=== PATIENT | male | born 1970 | race Caucasian/White ===

== ENCOUNTER 2019-10-20 12:42 | Inpatient (IN) ==
[2019-10-20] MEDS ORDERED: 0.9 % SODIUM CHLORIDE 1,000 ML IV ONE ×3 (12:47→15:25)
[2019-10-20 13:36] LABS: ABG Methemoglobin 0.3 % (0.4-1.5); Total Hemoglobin 11.9 gm/dL (13.5-16.5); VBG Base Excess -11.1 (-2.0-2.0); VBG Oxygen Saturation 73.5 % (40.0-70.0); VBG PO2 56 mmHg (25-40); VBG Total CO2 14.9 mmol/L (25.0-29.0)
[2019-10-20 13:40] LABS: Basophils # (Auto) 0 K/mcL (0.0-0.3); Basophils % (Auto) 0.1 % (0.0-2.0); Eosinophils # (Auto) 0 K/mcL (0.0-0.7); Eosinophils % (Auto) 0 % (0.0-7.0); Granulocytes % (Auto) 90.4 % (38.0-78.0); Hematocrit 44.8 % (41.0-55.0); Hemoglobin 14.3 g/dL (13.5-16.5); Lymphocytes % (Auto) 5.8 % (15.5-49.0); Mean Platelet Volume 9.9 fL (7.4-10.4); Monocytes # (Auto) 0.7 K/mcL (0.1-0.9); Monocytes % (Auto) 3.7 % (1.0-12.0); Platelet Count 107 K/mcL (140-440); RBC 4.35 M/mcL (4.50-5.90); Red Cell Distribution Width 15.3 % (11.5-14.5); WBC 17.5 K/mcL (4.5-11.0)
[2019-10-20 14:07] LABS: ALT/SGPT 12 U/l (0-40); AST/SGOT 19 U/l (0-37); Albumin 3.1 gm/dL (3.2-5.2); Albumin/Globulin Ratio 0.5 (1.0-2.3); Alkaline Phosphatase 142 U/L (39-117); Bilirubin,Total 1.6 mg/dL (0.0-1.0); Blood Urea Nitrogen 36 mg/dl (6-20); Calcium 11.1 mg/dl (8.6-10.4); Carbon Dioxide 12 mmol/L (22-30); Globulin 6.1 gm/dL (2.2-3.7); Glomerular Filtration Rate 64
[2019-10-20] MEDS ORDERED: INSULIN REGULAR, HUMAN 1 UNIT/0.01 ML UNIT IV ONE (14:07)
[2019-10-20 14:10] LABS: Chloride 94 mmol/L (96-108); Glucose 662 mg/dL (70-105)
[2019-10-20 15:08] LABS: Appearance,Urine HAZY; Bacteria,Urine 0 /hpf (0); Bilirubin,Urine NEG (NEG); Color,Urine YELLOW; Culture Indicated,Urine YES; Glucose,Urine (UA) >=500 mg/dL (NEG); Ketones,Urine 80 mg/dL (NEG); Leukocyte Esterase,Urine 500 /uL (NEG); Mucus,Urine FEW /hpf (0); Nitrate,Urine NEG (NEG); Protein,Urine NEG (NEG); Specific Gravity,Urine 1.024 (1.000-1.035); Urine Blood 0.2 mg/dL (<0.03); Urine RBC 2 /hpf (0-1); Urine Squamous Epithelial Cell 0 /hpf (0-4); Urine WBC 109 /hpf (0-4); Urobilinogen,Urine NEG (NEG)
[2019-10-20] MEDS ORDERED: cefTRIAXone 1 GM VIAL IV ONE (15:27)
[2019-10-20] MEDS ORDERED: ONDANSETRON 4 MG/2 ML VIAL IV PRN ×2 (17:47→19:23)
[2019-10-20] MEDS ORDERED: POTASSIUM CHLORIDE 40 MEQ in DEXTROSE 5% IN WATER 500 ML IV ONE ×2 (17:58→19:23)
[2019-10-20] MEDS ORDERED: cefTRIAXone 1 GM in DEXTROSE 5% IN WATER 50 ML IV SCH (18:00)
[2019-10-20] MEDS ORDERED: LORazepam 2 MG/ML VIAL IV ONE (18:57)
--- NOTE | 2019-10-20 19:18 | Internal Med History&Physical ---
Medical - H&P: HPI Patient information: Note initiated : 10/20/19 at 7:10 pm Service Date, if different from initiated Date: [] Patient: Tarun Molina a 49 y/o M admitted on for BLOOD SUGAR PROBLEM. Chief Complaint: [does not feel good well for days] History of present illness: Mr. Molina is a 49 year old M with a history of diabetes type 2, and high blood pressure who was presented to the ER because he does not feel well for days. Patient is tired and lethargic and a poor historian. As per patient and , patient has not been feeling well for 1 month, but his symptoms have been worsening over the past week. Over the past week he has been having nausea, dizziness, back pain, and dysuria. He has not used diabetic medications for days. In the ER, he was found to have hyperglycemia, 662. 3 L normal saline, 10 units of regular insulin, 1 g of ceftriaxone were given. When I saw this patient in the ER, he felt better. But he still had these symptoms mentioned above. Blood glucose 485. - Constitutional Constitutional: Present: lethargy - EENT Eyes: Present: as per HPI - Cardiovascular Cardiovascular: Present: as per HPI - Respiratory Respiratory: Present: as per HPI - Gastrointestinal Gastrointestinal: Present: as per HPI, nausea - Musculoskeletal Musculoskeletal: Present: back pain - Integumentary Integumentary: Present: as per HPI - Neurological Neurological: Present: weakness (Lethargic and somnolence) - Psychiatric Psychiatric: Present: as per HPI - Endocrine Endocrine: Present: as per HPI - Hematologic/Lymphatic Hematologic/Lymphatic: Present: as per HPI Medical - H&P: PMH Medical history: Diabetes type 2 and high blood pressure Family history: reviewed and not pertinent (Mother had a diabetes and high blood pressure) Smoking status: Never smoker Alcohol use: rarely Medical - H&P: Meds Home Medications Medication Instructions Recorded Confirmed Type Insulin Glargine,Hum.rec.anlog 50 unit SQ BID 10/20/19 10/20/19 History [Lantus Solostar] Insulin Lispro [Humalog] See Protocol SQ QID 10/20/19 10/20/19 History Losartan/Hydrochlorothiazide 100 mg PO DAILY 10/20/19 10/20/19 History [Losartan-Hctz 100-25 mg Tab] Allergies Allergy/AdvReac Type Severity Reaction Status Date / Time latex Allergy Verified 10/20/19 12:45 Medical - H&P: Exam - Constitutional Vitals: Temp Pulse Resp BP Pulse Ox 97 F 102 H 14 119/75 98 10/20/19 12:46 10/20/19 18:12 10/20/19 18:12 10/20/19 18:12 10/20/19 18:12 General appearance: mild distress - Head Head exam: Present: atraumatic, normocephalic - Eye Eye exam: Present: EOMI, PERRL - ENT ENT exam: Present: normal exam - Respiratory Respiratory exam: Present: normal respiratory exam, CTAB - Cardiovascular Cardiovascular exam: Present: normal rate and rhythm, RRR. Absent: JVD - GI/Abdominal GI/Abdominal exam: Present: normal bowel sounds (Mildly diffuse tenderness, no rebound pain), soft - Extremities Exam Extremities exam: Present: normal inspection. Absent: pedal edema, tenderness - Back Exam Back exam: Present: normal inspection - Neurological Exam Neurological exam: Absent: motor sensory deficit (Lethargic, no focal neurological deficits) Medical - H&P: Reslt - Labs CBC & Chem 7: 10/20/19 12:56 10/20/19 12:55 Labs: Short CBC 10/20/19 Range/Units 12:56 WBC 17.5 H (4.5-11.0) K/mcL Hgb 14.3 (13.5-16.5) g/dL Hct 44.8 (41.0-55.0) % Plt Count 107 L (140-440) K/mcL BMP 10/20/19 12:55 Sodium 143 Potassium 3.5 Chloride 94 L Carbon Dioxide 12 L BUN 36 H Creatinine 1.3 H Glucose 662 H* Calcium 11.1 H Liver Function 10/20/19 Range/Units 12:55 Total Bilirubin 1.6 H (0.0-1.0) mg/dL AST 19 (0-37) U/l ALT 12 (0-40) U/l Alkaline Phosphatase 142 H (39-117) U/L Albumin 3.1 L (3.2-5.2) gm/dL Urine 10/20/19 Range/Units 14:26 Urine Color Yellow Urine Appearance Hazy Urine pH 6.0 (5.0-9.0) Ur Specific [place] 1.024 (1.000-1.035) Urine Protein Neg (NEG) mg/dL Urine Glucose (UA) >=500 A (NEG) mg/dL - ABG Interpretation ABG results: 10/20/19 13:12 ABG Methemoglobin 0.3 L VBG pH 7.30 L VBG pCO2 29.0 L VBG pO2 56 H VBG HCO3 14.0 L VBG Total CO2 14.9 L VBG O2 Saturation 73.5 H VBG Base Excess -11.1 L Medical - H&P: A/P - Narrative A/P Narrative: Assessment: 1. Uncontrolled DM type 2 with hyperglycemia 2. LIZ 3. UTI 4. Thrombocytopenia 5. HTN 6. Leukocytosis Plan: 1. Patient has not used diabetic medications for days. In the ER, blood glucose 662. pH 7.30, bicarbonate of 14, Anion gap 37, effective serum osmole 326. Lactic acid 4.3. Patient could have early DKA. Lactic acidosis could contribute to anion gap 37. Insulin 10 units was given in the ER. Patient home meds including Lantus 50 units twice daily. I would not like to start insulin drip at this moment. Instead I will give the patient Lantus to 25 units twice daily with insulin sliding scale. I will start insulin drip if necessary. BMP every 4 hours, Accu-Chek every 2 hours, Potassium chloride 40 M EQ IV 0.45% saline 2. Creatinine 1.3. Could be due to prerenal causes. Held losartan. IV fluid. Repeat renal function 3. Ceftriaxone was started in the ER for UTI. Continue ceftriaxone 4. Repeat her platelets 5. Held losartan. Monitor blood pressure 6. Leukocytosis could be due to UTI or/and stress. Blood culture and urine culture. Continue ceftriaxone 7. DVT prophylaxis: Heparin 8. CODE STATUS: Full
[2019-10-20 19:19] LABS: proBNP 72.5 pg/ml (0-125)
[2019-10-20 19:22] LABS: Blood Urea Nitrogen 34 mg/dl (6-20); Calcium 9.8 mg/dl (8.6-10.4); Carbon Dioxide 14 mmol/L (22-30); Chloride 103 mmol/L (96-108); Glomerular Filtration Rate 87; Glucose 487 mg/dL (70-105)
[2019-10-20] MEDS ORDERED: DEXTROSE 50% 50 ML VIAL IV PRN (19:37)
--- NOTE | 2019-10-20 19:38 | Emergency Department Note ---
General Adult HPI - General Chief complaint: Blood Sugar Problem Stated complaint: BLOOD SUGAR PROBLEM Time Seen by Provider: 10/20/19 12:59 Source: patient Mode of arrival: ambulatory Limitations: no limitations - History of Present Illness HPI Narrative: 49-year-old male presenting to the emergency department the chief complaint of having stopped his insulin about 2 months ago over the past several days has noted gradual progressive increase in fever feeling generally ill unable to really take p.o.'s very well patient with some nausea vomiting no diarrhea perhaps some dysuria patient without exacerbating or ameliorating factors at this point time patient is noncompliant with his diabetes regimen. Patient unaware of his what what his most recent blood sugar is and was noted by EMS to be over 500. Noted here in the emergency department to have significant elevation of his blood sugar on immediate at time of presentation. - Related Data Home Medications Medication Instructions Recorded Confirmed Insulin Glargine,Hum.rec.anlog 50 unit SQ BID 10/20/19 10/20/19 [Lantus Solostar] Insulin Lispro [Humalog] See Protocol SQ QID 10/20/19 10/20/19 Losartan/Hydrochlorothiazide 100 mg PO DAILY 10/20/19 10/20/19 [Losartan-Hctz 100-25 mg Tab] Allergies Allergy/AdvReac Type Severity Reaction Status Date / Time latex Allergy Verified 10/20/19 12:45 Review of Systems All systems ED: reviewed and negative except as stated. Past Medical History - Social History smoking status: Never smoker Physical Exam General: Alert, interactive, appropriate Head: Atraumatic, normocephalic; mucous membranes were dry Eyes: Extraocular movements intact, PERRLA Neck: Trachea midline, full range of motion Chest: Symmetrical chest wall rise, clear to auscultation bilateral without wheezes rales crackles or rubs Cardiovascular: Patient with excellent perfusion to the extremities, patient with tachycardia without M/R/G Abdomen: Nontender nondistended normoactive bowel sounds no masses no hepatosplenomegaly no rebound no guarding Extremities: Full range of motion joints, warm well perfused Neuro: Alert, slightly confused, cranial nerves II through XII grossly intact, normal gait Psychiatric: Normal affect normal mood Limitations: no limitations Course Vital Signs Temperature 97 F 10/20/19 12:42 Pulse Rate 111 H 10/20/19 12:42 Respiratory Rate 16 10/20/19 12:42 Pulse Oximetry (%) 100 10/20/19 12:42 Temperature 97 F 10/20/19 19:31 Pulse Rate 102 H 10/20/19 19:31 Respiratory Rate 14 10/20/19 19:31 Blood Pressure 119/75 10/20/19 19:31 Pulse Oximetry (%) 98 10/20/19 19:31 Medical Decision Making - [facility] Narrative Medical decision making narrative: Differential diagnosis includes alcoholic and fasting ketoacidosis, anion gap acidosis from aspirin, Tylenol, ethylene glycol, methanol, propylene glycol; as well as metabolic encephalopathy. Cause for DKA consider major illness such as sepsis, pancreatitis, VA, CVA or medication changes, malfunction of insulin administration, dietary changes as well as medication noncompliance or medication changes. Patient with findings to suggest his sepsis is has a urinary source with abnormal UA patient also with elevated fraction as the etiology for his DKA findings. Patient with some acidosis as well as ketones in the urine. In my medical opinion at this time patient most reasonably is managed with inpatient admission to the hospital. Patient treated with insulin and IV fluids here in the emergency department with improvement in findings. Patients potassium was assessed prior to and administration of insulin to ensure hypokalemia did not ensue. Patient treated with Rocephin and fluids in the emergency department as well for sepsis. - Lab Data Result diagrams: 10/20/19 12:56 10/20/19 18:15 Lab Results 10/20/19 10/20/19 10/20/19 Range/Units 12:55 12:56 13:11 WBC 17.5 H (4.5-11.0) K/mcL RBC 4.35 L (4.50-5.90) M/mcL Hgb 14.3 (13.5-16.5) g/dL Hct 44.8 (41.0-55.0) % MCV 103.0 H (80.0-100.0) fL MCH 33.0 (26.0-34.0) pg MCHC 32.0 (31.0-36.0) g/dL RDW 15.3 H (11.5-14.5) % Plt Count 107 L (140-440) K/mcL MPV 9.9 (7.4-10.4) fL Gran % 90.4 H (38.0-78.0) % Lymph % (Auto) 5.8 L (15.5-49.0) % [place] % (Auto) 3.7 (1.0-12.0) % Eos % (Auto) 0 (0.0-7.0) % Baso % (Auto) 0.1 (0.0-2.0) % Gran # 15.8 H (1.8-8.0) K/mcL Lymph # (Auto) 1.0 L (1.5-4.8) K/mcL [place] # (Auto) 0.7 (0.1-0.9) K/mcL Eos # (Auto) 0 (0.0-0.7) K/mcL Baso # (Auto) 0 (0.0-0.3) K/mcL Differential Comment ABG Methemoglobin (0.4-1.5) % VBG pH (7.32-7.42) U VBG pCO2 (41.0-51.0) mmHg VBG pO2 (25-40) mmHg VBG HCO3 (24.0-28.0) mmol/L VBG Total CO2 (25.0-29.0) mmol/L VBG O2 Saturation (40.0-70.0) % VBG Base Excess (-2.0-2.0) VBG Lactic Acid 4.3 H* (0.5-2.0) mmol/L Carboxyhemoglobin (0.0-1.5) % THgb Total Hemoglobin (13.5-16.5) gm/dL O2 Delivery Level Sodium 143 (133-145) mmol/L Potassium 3.5 (3.3-5.1) mmol/L Chloride 94 L (96-108) mmol/L Carbon Dioxide 12 L (22-30) mmol/L Anion Gap 37.0 H (8-16) BUN 36 H (6-20) mg/dl Creatinine 1.3 H (0.7-1.2) mg/dl GFR Calculation 64 Glucose 662 H* (70-105) mg/dL Calcium 11.1 H (8.6-10.4) mg/dl Total Bilirubin 1.6 H (0.0-1.0) mg/dL AST 19 (0-37) U/l ALT 12 (0-40) U/l Alkaline Phosphatase 142 H (39-117) U/L Troponin T (0-0.03) ng/ml NT-Pro-B Natriuret Pep (0-125) pg/ml Total Protein 9.2 H (5.9-8.4) gm/dL Albumin 3.1 L (3.2-5.2) gm/dL Globulin 6.1 H (2.2-3.7) gm/dL Albumin/Globulin Ratio 0.5 L (1.0-2.3) Urine Color Urine Appearance Urine pH (5.0-9.0) Ur Specific [place] (1.000-1.035) Urine Protein (NEG) mg/dL Urine Glucose (UA) (NEG) mg/dL Urine Ketones (NEG) mg/dL Urine Occult Blood (<0.03) mg/dL Urine Nitrate (NEG) Urine Bilirubin (NEG) mg/dL Urine Urobilinogen (NEG) mg/dL Ur Leukocyte Esterase (NEG) /uL Urine RBC (0-1) /hpf Urine WBC (0-4) /hpf Ur Squamous Epith Cells (0-4) /hpf Urine Bacteria (0) /hpf Urine Mucus (0) /hpf Ur Culture Indicated? 10/20/19 10/20/19 10/20/19 Range/Units 13:12 14:26 18:15 WBC (4.5-11.0) K/mcL RBC (4.50-5.90) M/mcL Hgb (13.5-16.5) g/dL Hct (41.0-55.0) % MCV (80.0-100.0) fL MCH (26.0-34.0) pg MCHC (31.0-36.0) g/dL RDW (11.5-14.5) % Plt Count (140-440) K/mcL MPV (7.4-10.4) fL Gran % (38.0-78.0) % Lymph % (Auto) (15.5-49.0) % [place] % (Auto) (1.0-12.0) % Eos % (Auto) (0.0-7.0) % Baso % (Auto) (0.0-2.0) % Gran # (1.8-8.0) K/mcL Lymph # (Auto) (1.5-4.8) K/mcL [place] # (Auto) (0.1-0.9) K/mcL Eos # (Auto) (0.0-0.7) K/mcL Baso # (Auto) (0.0-0.3) K/mcL Differential Comment ABG Methemoglobin 0.3 L (0.4-1.5) % VBG pH 7.30 L (7.32-7.42) U VBG pCO2 29.0 L (41.0-51.0) mmHg VBG pO2 56 H (25-40) mmHg VBG HCO3 14.0 L (24.0-28.0) mmol/L VBG Total CO2 14.9 L (25.0-29.0) mmol/L VBG O2 Saturation 73.5 H (40.0-70.0) % VBG Base Excess -11.1 L (-2.0-2.0) VBG Lactic Acid (0.5-2.0) mmol/L Carboxyhemoglobin 2.7 H (0.0-1.5) % THgb Total Hemoglobin 11.9 L (13.5-16.5) gm/dL O2 Delivery Level Not Reportable Sodium (133-145) mmol/L Potassium (3.3-5.1) mmol/L Chloride (96-108) mmol/L Carbon Dioxide (22-30) mmol/L Anion Gap (8-16) BUN (6-20) mg/dl Creatinine (0.7-1.2) mg/dl GFR Calculation Glucose (70-105) mg/dL Calcium (8.6-10.4) mg/dl Total Bilirubin (0.0-1.0) mg/dL AST (0-37) U/l ALT (0-40) U/l Alkaline Phosphatase (39-117) U/L Troponin T < 0.01 (0-0.03) ng/ml NT-Pro-B Natriuret Pep (0-125) pg/ml Total Protein (5.9-8.4) gm/dL Albumin (3.2-5.2) gm/dL Globulin (2.2-3.7) gm/dL Albumin/Globulin Ratio (1.0-2.3) Urine Color Yellow Urine Appearance Hazy Urine pH 6.0 (5.0-9.0) Ur Specific [place] 1.024 (1.000-1.035) Urine Protein Neg (NEG) mg/dL Urine Glucose (UA) >=500 A (NEG) mg/dL Urine Ketones 80 A (NEG) mg/dL Urine Occult Blood 0.2 A (<0.03) mg/dL Urine Nitrate Neg (NEG) Urine Bilirubin Neg (NEG) mg/dL Urine Urobilinogen Neg (NEG) mg/dL Ur Leukocyte Esterase 500 A (NEG) /uL Urine RBC 2 H (0-1) /hpf Urine WBC 109 H (0-4) /hpf Ur Squamous Epith Cells 0 (0-4) /hpf Urine Bacteria 0 (0) /hpf Urine Mucus Few (0) /hpf Ur Culture Indicated? Yes 10/20/19 Range/Units 18:15 WBC (4.5-11.0) K/mcL RBC (4.50-5.90) M/mcL Hgb (13.5-16.5) g/dL Hct (41.0-55.0) % MCV (80.0-100.0) fL MCH (26.0-34.0) pg MCHC (31.0-36.0) g/dL RDW (11.5-14.5) % Plt Count (140-440) K/mcL MPV (7.4-10.4) fL Gran % (38.0-78.0) % Lymph % (Auto) (15.5-49.0) % [place] % (Auto) (1.0-12.0) % Eos % (Auto) (0.0-7.0) % Baso % (Auto) (0.0-2.0) % Gran # (1.8-8.0) K/mcL Lymph # (Auto) (1.5-4.8) K/mcL [place] # (Auto) (0.1-0.9) K/mcL Eos # (Auto) (0.0-0.7) K/mcL Baso # (Auto) (0.0-0.3) K/mcL Differential Comment ABG Methemoglobin (0.4-1.5) % VBG pH (7.32-7.42) U VBG pCO2 (41.0-51.0) mmHg VBG pO2 (25-40) mmHg VBG HCO3 (24.0-28.0) mmol/L VBG Total CO2 (25.0-29.0) mmol/L VBG O2 Saturation (40.0-70.0) % VBG Base Excess (-2.0-2.0) VBG Lactic Acid (0.5-2.0) mmol/L Carboxyhemoglobin (0.0-1.5) % THgb Total Hemoglobin (13.5-16.5) gm/dL O2 Delivery Level Sodium 145 (133-145) mmol/L Potassium 3.9 (3.3-5.1) mmol/L Chloride 103 (96-108) mmol/L Carbon Dioxide 14 L (22-30) mmol/L Anion Gap 28.0 H (8-16) BUN 34 H (6-20) mg/dl Creatinine 1.0 (0.7-1.2) mg/dl GFR Calculation 87 Glucose 487 H* (70-105) mg/dL Calcium 9.8 (8.6-10.4) mg/dl Total Bilirubin (0.0-1.0) mg/dL AST (0-37) U/l ALT (0-40) U/l Alkaline Phosphatase (39-117) U/L Troponin T (0-0.03) ng/ml NT-Pro-B Natriuret Pep 72.5 (0-125) pg/ml Total Protein (5.9-8.4) gm/dL Albumin (3.2-5.2) gm/dL Globulin (2.2-3.7) gm/dL Albumin/Globulin Ratio (1.0-2.3) Urine Color Urine Appearance Urine pH (5.0-9.0) Ur Specific [place] (1.000-1.035) Urine Protein (NEG) mg/dL Urine Glucose (UA) (NEG) mg/dL Urine Ketones (NEG) mg/dL Urine Occult Blood (<0.03) mg/dL Urine Nitrate (NEG) Urine Bilirubin (NEG) mg/dL Urine Urobilinogen (NEG) mg/dL Ur Leukocyte Esterase (NEG) /uL Urine RBC (0-1) /hpf Urine WBC (0-4) /hpf Ur Squamous Epith Cells (0-4) /hpf Urine Bacteria (0) /hpf Urine Mucus (0) /hpf Ur Culture Indicated? Critical Care Time Critical Care Time: Yes Total Critical Care Time: 90 Disposition Pt seen by MACHINE HOSTLER/PA only: No Clinical Impression: Sepsis, DKA (diabetic ketoacidoses) Disposition: Xfer As Inpt ([facility]) Condition: Fair
[2019-10-20] MEDS: INSULIN GLARGINE, HUMAN 1 UNIT/0.01 ML SQ SCH (20:01)
[2019-10-20] MEDS ORDERED: POTASSIUM CHLORIDE 20 MEQ/10 ML VIAL IV ONE (20:03)
[2019-10-20] MEDS ORDERED: LORazepam 2 MG/ML VIAL ONE (20:25)
[2019-10-20] MEDS: LORazepam 2 MG/ML VIAL IV PRN (20:49)
[2019-10-20] MEDS: 0.45 % SODIUM CHLORIDE 1,000 ML IV SCH (20:50)
[2019-10-20] MEDS ORDERED: INSULIN LISPRO 1 UNIT/0.01 ML UNIT SQ SCH (21:00)
[2019-10-20] MEDS ORDERED: HEPARIN 5,000 UNIT/ML VIAL SQ SCH (21:00)
[2019-10-20] MEDS ORDERED: SENNOSIDES 1 TABLET PO SCH (21:00)
[2019-10-20] MEDS ORDERED: DOCUSATE SODIUM 100 MG CAPSULE PO SCH (21:00)
[2019-10-20] MEDS: DOCUSATE SODIUM 100 MG CAPSULE PO SCH (21:49)
[2019-10-20] MEDS: QUEtiapine 25 MG TABLET PO SCH (21:50)
[2019-10-20] MEDS: SENNOSIDES 1 TABLET PO SCH (21:50)
[2019-10-20] MEDS: INSULIN LISPRO 1 UNIT/0.01 ML UNIT SQ SCH (21:56)
[2019-10-20] MEDS: HEPARIN 5,000 UNIT/ML VIAL SQ SCH (21:56)
[2019-10-20] MEDS ORDERED: 0.9 % SODIUM CHLORIDE 10 ML SYRINGE IV SCH (22:00)
[2019-10-20] MEDS: 0.9 % SODIUM CHLORIDE 10 ML SYRINGE IV SCH (22:24)
[2019-10-21 00:20] LABS: Blood Urea Nitrogen 34 mg/dl (6-20); Calcium 9.5 mg/dl (8.6-10.4); Carbon Dioxide 15 mmol/L (22-30); Chloride 104 mmol/L (96-108); Glomerular Filtration Rate 78; Glucose 529 mg/dL (70-105)
[2019-10-21] MEDS: INSULIN LISPRO 1 UNIT/0.01 ML UNIT SQ SCH ×9 (00:53→22:12)
[2019-10-21] MEDS: LORazepam 2 MG/ML VIAL IV PRN ×2 (02:10→20:10)
--- NOTE | 2019-10-21 04:04 | XRay Report ---
CLINICAL INFORMATION: ams COMPARISON: None. FINDINGS: Cardiomediastinal silhouette is accentuated by suboptimal inspiratory result, portable technique and slight lordotic positioning. It is within normal limits. Pulmonary vessels are normal. Lungs are clear. No effusions. IMPRESSION: Negative Interpreted and Authenticated by: Karthikeyan Dia 10/21/19
[2019-10-21] MEDS: 0.45 % SODIUM CHLORIDE 1,000 ML IV SCH ×2 (04:23→13:22)
[2019-10-21 04:46] LABS: Basophils # (Auto) 0 K/mcL (0.0-0.3); Basophils % (Auto) 0.1 % (0.0-2.0); Eosinophils # (Auto) 0 K/mcL (0.0-0.7); Eosinophils % (Auto) 0.1 % (0.0-7.0); Granulocytes % (Auto) 89.3 % (38.0-78.0); Hemoglobin 11.2 g/dL (13.5-16.5); Lymphocytes # (Auto) 0.8 K/mcL (1.5-4.8); Mean Cell Volume 101.5 fL (80.0-100.0); Mean Platelet Volume 8.8 fL (7.4-10.4); Monocytes # (Auto) 0.1 K/mcL (0.1-0.9); Monocytes % (Auto) 1.5 % (1.0-12.0); Platelet Count 69 K/mcL (140-440); RBC 3.35 M/mcL (4.50-5.90); Red Cell Distribution Width 14.5 % (11.5-14.5); WBC 9.3 K/mcL (4.5-11.0)
[2019-10-21 05:14] LABS: Blood Urea Nitrogen 33 mg/dl (6-20); Calcium 9.3 mg/dl (8.6-10.4); Carbon Dioxide 19 mmol/L (22-30); Chloride 110 mmol/L (96-108); Glomerular Filtration Rate 87; Glucose 417 mg/dL (70-105)
[2019-10-21] MEDS: 0.9 % SODIUM CHLORIDE 10 ML SYRINGE IV SCH ×3 (06:03→20:10)
[2019-10-21 06:46] LABS: Blood Urea Nitrogen 31 mg/dl (6-20); Calcium 9.3 mg/dl (8.6-10.4); Carbon Dioxide 22 mmol/L (22-30); Chloride 114 mmol/L (96-108); Glomerular Filtration Rate 87; Glucose 309 mg/dL (70-105)
[2019-10-21] MEDS: INSULIN GLARGINE, HUMAN 1 UNIT/0.01 ML SQ SCH (08:14)
[2019-10-21] MEDS ORDERED: cefTRIAXone 1 GM VIAL IV SCH (09:00)
[2019-10-21] MEDS ORDERED: VANCOMYCIN 1,500 MG in 0.9 % SODIUM CHLORIDE 500 ML IV SCH (09:00)
[2019-10-21] MEDS: HEPARIN 5,000 UNIT/ML VIAL SQ SCH ×2 (09:10→20:43)
--- NOTE | 2019-10-21 09:24 | Internal Med Progress Note ---
Medical - PN: Subj Patient information: Note initiated : 10/21/19 at 9:23 am Service Date, if different from initiated Date: [] Patient: Tarun Molina 49 y/o M admitted on 10/20/19 for BLOOD SUGAR PROBLEM. Chief Complaint: [] When I saw this patient this morning, he was sleeping. He was given Ativan for agitation. Patient has tachycardia and tachypnea White blood cells normalized today, 9.3. Platelet went down to 69 from 107 yesterday Anion gap closed, 14.0 Blood culture showed gram-positive cocci - Constitutional Vitals: Vital Signs Temp Pulse Resp BP Pulse Ox 97.9 F 102 H 28 H 122/58 97 10/21/19 08:01 10/21/19 08:01 10/21/19 08:01 10/21/19 08:01 10/21/19 08:01 Period Temp Pulse Resp BP Sys/Garcia Pulse Ox Last 24 Hr 96.2 F-97.9 F 88-115 11-31 96-137/53-84 95-100 Intake and Output 10/20/19 10/21/19 10/21/19 21:59 05:59 13:59 Intake Total 3000 1464 Output Total 1 1370 Balance 2999 94 Weight 361.377 kg Intake & Output: Intake & Output 10/20/19 10/21/19 10/21/19 21:59 05:59 13:59 Intake Total 3000 1464 Output Total 1 1370 Balance 2999 94 Weight 361.377 kg Intake: IV 3000 1464 Sodium Chloride 0.45% 1,000 ml 944 @ 125 mls/hr IV .Q8H [facility] Rx#: [id number] Sodium Chloride 0.9% 1,000 ml @ 3000 Wide Open IV BOLUS ONE Rx#: [id number] Potassium Chloride 40 Meq In 520 Dextrose 5% in Water 500 ml @ 130 mls/hr IV ONCE ONE Rx#: [id number] Output: Urine Catheter Amount 1370 # of times incontinent of urine 1 Other: Urine Appearance Clear Urine Color Bright Yellow General appearance: average body habitus (Patient is sleeping) - Head Head exam: Present: normal inspection - Eye Eye exam: Absent: conjunctival injection - ENT ENT exam: Present: normal exam - Neck Neck exam: Present: normal inspection - Respiratory Respiratory exam: Present: normal respiratory exam, CTAB - Cardiovascular Cardiovascular exam: Present: normal rate and rhythm, tachycardia - GI/Abdominal GI/Abdominal exam: Present: normal bowel sounds, soft. Absent: tenderness - Extremities Exam Extremities exam: Present: normal inspection. Absent: pedal edema, tenderness, Francis's sign - Neurological Exam Neurological exam: Present: reflexes normal (Does not seem to have focal neurological deficit) - Skin Skin exam: Present: warm Medical - PN: Obj Da - Labs CBC & Chem 7: 10/21/19 03:38 10/21/19 05:42 Labs: Abnormal Lab Results 10/21/19 10/21/19 10/21/19 05:42 03:38 02:42 WBC RBC 3.35 L Hgb 11.2 L Hct 34.0 L MCV 101.5 H RDW Plt Count 69 L Gran % 89.3 H Lymph % (Auto) 9.0 L Gran # 8.3 H Lymph # (Auto) 0.8 L ABG Methemoglobin VBG pH VBG pCO2 VBG pO2 VBG HCO3 VBG Total CO2 VBG O2 Saturation VBG Base Excess VBG Lactic Acid 2.1 H Carboxyhemoglobin Total Hemoglobin Sodium 150 H Chloride 114 H Carbon Dioxide Anion Gap BUN 31 H Creatinine Glucose 309 H Calcium Total Bilirubin Alkaline Phosphatase Total Protein Albumin Globulin Albumin/Globulin Ratio Urine Glucose (UA) Urine Ketones Urine Occult Blood Ur Leukocyte Esterase Urine RBC Urine WBC 10/21/19 10/20/19 10/20/19 02:34 22:02 20:00 WBC RBC Hgb Hct MCV RDW Plt Count Gran % Lymph % (Auto) Gran # Lymph # (Auto) ABG Methemoglobin VBG pH VBG pCO2 VBG pO2 VBG HCO3 VBG Total CO2 VBG O2 Saturation VBG Base Excess VBG Lactic Acid 2.2 H Carboxyhemoglobin Total Hemoglobin Sodium 149 H Chloride 110 H Carbon Dioxide 19 L 15 L Anion Gap 20.0 H 24.0 H BUN 33 H 34 H Creatinine Glucose 417 H 529 H* Calcium Total Bilirubin Alkaline Phosphatase Total Protein Albumin Globulin Albumin/Globulin Ratio Urine Glucose (UA) Urine Ketones Urine Occult Blood Ur Leukocyte Esterase Urine RBC Urine WBC 10/20/19 10/20/19 10/20/19 18:15 14:26 13:12 WBC RBC Hgb Hct MCV RDW Plt Count Gran % Lymph % (Auto) Gran # Lymph # (Auto) ABG Methemoglobin 0.3 L VBG pH 7.30 L VBG pCO2 29.0 L VBG pO2 56 H VBG HCO3 14.0 L VBG Total CO2 14.9 L VBG O2 Saturation 73.5 H VBG Base Excess -11.1 L VBG Lactic Acid Carboxyhemoglobin 2.7 H Total Hemoglobin 11.9 L Sodium Chloride Carbon Dioxide 14 L Anion Gap 28.0 H BUN 34 H Creatinine Glucose 487 H* Calcium Total Bilirubin Alkaline Phosphatase Total Protein Albumin Globulin Albumin/Globulin Ratio Urine Glucose (UA) >=500 A Urine Ketones 80 A Urine Occult Blood 0.2 A Ur Leukocyte Esterase 500 A Urine RBC 2 H Urine WBC 109 H 10/20/19 10/20/19 10/20/19 13:11 12:56 12:55 WBC 17.5 H RBC 4.35 L Hgb Hct MCV 103.0 H RDW 15.3 H Plt Count 107 L Gran % 90.4 H Lymph % (Auto) 5.8 L Gran # 15.8 H Lymph # (Auto) 1.0 L ABG Methemoglobin VBG pH VBG pCO2 VBG pO2 VBG HCO3 VBG Total CO2 VBG O2 Saturation VBG Base Excess VBG Lactic Acid 4.3 H* Carboxyhemoglobin Total Hemoglobin Sodium Chloride 94 L Carbon Dioxide 12 L Anion Gap 37.0 H BUN 36 H Creatinine 1.3 H Glucose 662 H* Calcium 11.1 H Total Bilirubin 1.6 H Alkaline Phosphatase 142 H Total Protein 9.2 H Albumin 3.1 L Globulin 6.1 H Albumin/Globulin Ratio 0.5 L Urine Glucose (UA) Urine Ketones Urine Occult Blood Ur Leukocyte Esterase Urine RBC Urine WBC Meds: Medications Ceftriaxone Sodium (Rocephin) 1 gm IV DAILY [facility] Dextrose (Dextrose 50%) 50 ml IV UD PRN PRN Reason: Hypoglycemia Diagnostic Test (Pha) (Accu-Chek) 1 each FS ACHS [facility] Last Admin: 10/21/19 08:07 Dose: 1 each Documented by: Docusate Sodium (Colace) 100 mg PO BID [facility] Last Admin: 10/20/19 21:49 Dose: Not Given Documented by: Heparin Sodium (Porcine) (Heparin) 5,000 unit SQ Q12 [facility] Last Admin: 10/21/19 09:10 Dose: Not Given Documented by: Sodium Chloride (Sodium Chloride 0.45%) 1,000 mls @ 125 mls/hr IV .Q8H [facility] Last Admin: 10/21/19 04:23 Dose: 125 mls/hr Documented by: Insulin Glargine (Lantus) 25 unit SQ BID [facility] Last Admin: 10/21/19 08:14 Dose: 25 units Documented by: Insulin Human Lispro (Humalog) 0 unit SQ ACHS [facility]; Protocol Last Admin: 10/21/19 08:14 Dose: 8 unit Documented by: Lorazepam (Ativan) 0.5 mg IV Q6HP PRN PRN Reason: ANXIETY/SEDATION Last Admin: 10/21/19 02:10 Dose: 0.5 mg Documented by: Ondansetron HCl (Zofran) 4 mg IV Q6HP PRN PRN Reason: Nausea And Vomiting Quetiapine Fumarate (Seroquel) 25 mg PO BID [facility] Last Admin: 10/20/19 21:50 Dose: Not Given Documented by: Senna (Senokot) 2 tab PO HS [facility] Last Admin: 10/20/19 21:50 Dose: Not Given Documented by: Sodium Chloride (Saline Flush) 10 ml IV Q8 [facility] Last Admin: 10/21/19 06:03 Dose: 10 ml Documented by: - ABG Interpretation ABG results: 10/20/19 13:12 ABG Methemoglobin 0.3 L VBG pH 7.30 L VBG pCO2 29.0 L VBG pO2 56 H VBG HCO3 14.0 L VBG Total CO2 14.9 L VBG O2 Saturation 73.5 H VBG Base Excess -11.1 L Medical - PN: A/P - Time Spent With Patient Total time spent is greater than 50% in coordination of care (as documented) at patient's floor/unit and/or counseling patient: - Narrative A/P Narrative: Assessment: 1. Uncontrolled DM type 2 with hyperglycemia 2. LIZ, resolved 3. UTI 4. Thrombocytopenia 5. HTN 6. Leukocytosis, resolved 7. Staphy aureus bacteremia Plan: 1. Patient has not used diabetic medications for days. In the ER, blood glucose 662. pH 7.30, bicarbonate of 14, Anion gap 37, effective serum osmole 326. Lactic aci d 4.3. Patient could have early DKA. Lactic acidosis could contribute to anion gap 37. Anion gap closed, 14.0 Patient home meds including Lantus 50 units twice daily. Increased Lantus to 30 units twice daily with insulin sliding scale. BMP every 8 hours Potassium chloride 20 M EQ Continue IV 0.45% saline 2. Creatinine went down to 1.0. Continue to hold losartan. IV fluid. Repeat renal function 3. Ceftriaxone was started in the ER for UTI. Continue ceftriaxone 4. Repeat her platelets 5. Held losartan. Monitor blood pressure 6. For bacteremia-staph aureus, repeat blood culture, vancomycin, echocardiogram. 7. DVT prophylaxis: Heparin 8. CODE STATUS: Full Disposition: PT OT Social work consult for medical noncompliance
[2019-10-21] MEDS ORDERED: VANCOMYCIN PER PHARMACY IV SCH (09:47)
[2019-10-21] MEDS ORDERED: INSULIN GLARGINE, HUMAN 1 UNIT/0.01 ML SQ ONE (09:52)
[2019-10-21] MEDS ORDERED: VANCOMYCIN 1,000 MG in 0.9 % SODIUM CHLORIDE 250 ML IV SCH (10:00)
[2019-10-21] MEDS ORDERED: POTASSIUM CHLORIDE 20 MEQ in DEXTROSE 5% IN WATER 250 ML IV ONE (10:05)
[2019-10-21] MEDS: DOCUSATE SODIUM 100 MG CAPSULE PO SCH ×2 (10:54→20:43)
[2019-10-21] MEDS: QUEtiapine 25 MG TABLET PO SCH ×2 (10:54→20:43)
[2019-10-21 13:15] LABS: Blood Urea Nitrogen 29 mg/dl (6-20); Calcium 9.3 mg/dl (8.6-10.4); Carbon Dioxide 25 mmol/L (22-30); Glomerular Filtration Rate 99; Glucose 290 mg/dL (70-105)
[2019-10-21 13:17] LABS: Chloride 114 mmol/L (96-108)
[2019-10-21] MEDS ORDERED: DEXTROSE 5% IN WATER 500 ML IV SCH (15:30)
--- NOTE | 2019-10-21 15:35 | Internal Med Progress Note ---
Medical - PN: Subj Patient information: Note initiated : 10/21/19 at 3:23 pm Service Date, if different from initiated Date: [] Patient: Tarun Molina a 49 y/o M admitted on 10/20/19 for BLOOD SUGAR PROBLEM. Chief Complaint: [] Interval history: Mr. Molina is a 49 year old M with a history of diabetes type 2, and high blood pressure who was presented to the ER because he does not feel well for days. Patient is tired and lethargic and a poor historian. As per patient and , patient has not been feeling well for 1 month, but his symptoms have been worsening over the past week. Over the past week he has been having nausea, dizziness, back pain, and dysuria. He has not used diabetic medications for days. In the ER, he was found to have hyperglycemia, 662. 3 L normal saline, 10 units of regular insulin, 1 g of ceftriaxone were given. When I saw this patient in the ER, he felt better. But he still had these symptoms mentioned above. Blood glucose 485. 10/21 When I saw this patient this morning, he was sleeping. He was given Ativan for agitation. Patient has tachycardia and tachypnea White blood cells normalized today, 9.3. Platelet went down to 69 from 107 yesterday Anion gap closed, 14.0 Blood culture showed gram-positive cocci - Constitutional Vitals: Vital Signs Temp Pulse Resp BP Pulse Ox 98.2 F 99 H 26 H 136/67 97 10/21/19 12:01 10/21/19 12:01 10/21/19 12:01 10/21/19 12:01 10/21/19 12:01 Period Temp Pulse Resp BP Sys/Garcia Pulse Ox Last 24 Hr 96.2 F-98.2 F 88-108 11-31 96-137/53-78 95-100 Intake and Output 10/21/19 10/21/19 10/21/19 05:59 13:59 21:59 Intake Total 1464 1500 Output Total 1370 Balance 94 1500 Weight 88.405 kg Patient Weight 10/22/19 05:59 Weight 88.405 kg Intake & Output: Intake & Output 10/21/19 10/21/19 10/21/19 05:59 13:59 21:59 Intake Total 1464 1500 Output Total 1370 Balance 94 1500 Weight 88.405 kg Intake: IV 1464 1500 Sodium Chloride 0.45% 1,000 ml 944 1000 @ 125 mls/hr IV .Q8H [facility] Rx#: [id number] Potassium Chloride 40 Meq In 520 Dextrose 5% in Water 500 ml @ 130 mls/hr IV ONCE ONE Rx#: [id number] Vancomycin 1,500 mg In Sodium 500 Chloride 0.9% 500 ml @ 333.3 mls/hr IV Q12H [facility] Rx#: [id number] Output: Urine Catheter Amount 1370 Other: Urine Appearance Clear Urine Color Bright Yellow Exam: General: Alert, Awake, No acute Distress Eyes/N/T: EOMI, Head/Neck: neck supple, CV: tachy but regular, No murmurs, Pulm: Clear b/l, no wheezing/rhonchi/rales Abd: soft, nontender, +BS x4 Ext: no clubbing/cyanosis/edema Neuro: Alert, no focal deficits, moves all extremities, Skin: warm/dry Medical - PN: Obj Da - Labs CBC & Chem 7: 10/21/19 03:38 10/21/19 10:30 Labs: Abnormal Lab Results 10/21/19 10/21/19 10/21/19 10:30 05:42 03:38 WBC RBC 3.35 L Hgb 11.2 L Hct 34.0 L MCV 101.5 H RDW Plt Count 69 L Gran % 89.3 H Lymph % (Auto) 9.0 L Gran # 8.3 H Lymph # (Auto) 0.8 L ABG Methemoglobin VBG pH VBG pCO2 VBG pO2 VBG HCO3 VBG Total CO2 VBG O2 Saturation VBG Base Excess VBG Lactic Acid Carboxyhemoglobin Total Hemoglobin Sodium 149 H 150 H Chloride 114 H 114 H Carbon Dioxide Anion Gap BUN 29 H 31 H Creatinine Glucose 290 H 309 H Calcium Total Bilirubin Alkaline Phosphatase Total Protein Albumin Globulin Albumin/Globulin Ratio Urine Glucose (UA) Urine Ketones Urine Occult Blood Ur Leukocyte Esterase Urine RBC Urine WBC 10/21/19 10/21/19 10/20/19 02:42 02:34 22:02 WBC RBC Hgb Hct MCV RDW Plt Count Gran % Lymph % (Auto) Gran # Lymph # (Auto) ABG Methemoglobin VBG pH VBG pCO2 VBG pO2 VBG HCO3 VBG Total CO2 VBG O2 Saturation VBG Base Excess VBG Lactic Acid 2.1 H Carboxyhemoglobin Total Hemoglobin Sodium 149 H Chloride 110 H Carbon Dioxide 19 L 15 L Anion Gap 20.0 H 24.0 H BUN 33 H 34 H Creatinine Glucose 417 H 529 H* Calcium Total Bilirubin Alkaline Phosphatase Total Protein Albumin Globulin Albumin/Globulin Ratio Urine Glucose (UA) Urine Ketones Urine Occult Blood Ur Leukocyte Esterase Urine RBC Urine WBC 10/20/19 10/20/19 10/20/19 20:00 18:15 14:26 WBC RBC Hgb Hct MCV RDW Plt Count Gran % Lymph % (Auto) Gran # Lymph # (Auto) ABG Methemoglobin VBG pH VBG pCO2 VBG pO2 VBG HCO3 VBG Total CO2 VBG O2 Saturation VBG Base Excess VBG Lactic Acid 2.2 H Carboxyhemoglobin Total Hemoglobin Sodium Chloride Carbon Dioxide 14 L Anion Gap 28.0 H BUN 34 H Creatinine Glucose 487 H* Calcium Total Bilirubin Alkaline Phosphatase Total Protein Albumin Globulin Albumin/Globulin Ratio Urine Glucose (UA) >=500 A Urine Ketones 80 A Urine Occult Blood 0.2 A Ur Leukocyte Esterase 500 A Urine RBC 2 H Urine WBC 109 H 10/20/19 10/20/19 10/20/19 13:12 13:11 12:56 WBC 17.5 H RBC 4.35 L Hgb Hct MCV 103.0 H RDW 15.3 H Plt Count 107 L Gran % 90.4 H Lymph % (Auto) 5.8 L Gran # 15.8 H Lymph # (Auto) 1.0 L ABG Methemoglobin 0.3 L VBG pH 7.30 L VBG pCO2 29.0 L VBG pO2 56 H VBG HCO3 14.0 L VBG Total CO2 14.9 L VBG O2 Saturation 73.5 H VBG Base Excess -11.1 L VBG Lactic Acid 4.3 H* Carboxyhemoglobin 2.7 H Total Hemoglobin 11.9 L Sodium Chloride Carbon Dioxide Anion Gap BUN Creatinine Glucose Calcium Total Bilirubin Alkaline Phosphatase Total Protein Albumin Globulin Albumin/Globulin Ratio Urine Glucose (UA) Urine Ketones Urine Occult Blood Ur Leukocyte Esterase Urine RBC Urine WBC 10/20/19 12:55 WBC RBC Hgb Hct MCV RDW Plt Count Gran % Lymph % (Auto) Gran # Lymph # (Auto) ABG Methemoglobin VBG pH VBG pCO2 VBG pO2 VBG HCO3 VBG Total CO2 VBG O2 Saturation VBG Base Excess VBG Lactic Acid Carboxyhemoglobin Total Hemoglobin Sodium Chloride 94 L Carbon Dioxide 12 L Anion Gap 37.0 H BUN 36 H Creatinine 1.3 H Glucose 662 H* Calcium 11.1 H Total Bilirubin 1.6 H Alkaline Phosphatase 142 H Total Protein 9.2 H Albumin 3.1 L Globulin 6.1 H Albumin/Globulin Ratio 0.5 L Urine Glucose (UA) Urine Ketones Urine Occult Blood Ur Leukocyte Esterase Urine RBC Urine WBC Meds: Medications Ceftriaxone Sodium (Rocephin) 1 gm IV DAILY [facility] Last Admin: 10/21/19 10:51 Dose: 1 gm Documented by: Dextrose (Dextrose 50%) 50 ml IV UD PRN PRN Reason: Hypoglycemia Diagnostic Test (Pha) (Accu-Chek) 1 each FS [facility] Last Admin: 10/21/19 11:50 Dose: 1 each Documented by: Docusate Sodium (Colace) 100 mg PO BID [facility] Last Admin: 10/21/19 10:54 Dose: Not Given Documented by: Heparin Sodium (Porcine) (Heparin) 5,000 unit SQ Q12 [facility] Last Admin: 10/21/19 09:10 Dose: Not Given Documented by: Sodium Chloride (Sodium Chloride 0.45%) 1,000 mls @ 125 mls/hr IV .Q8H [facility] Last Admin: 10/21/19 13:22 Dose: 125 mls/hr Documented by: Vancomycin HCl 1,500 mg/ (Sodium Chloride) 500 mls @ 333.3 mls/hr IV Q12H [facility] Last Infusion: 10/21/19 12:30 Dose: Infused Documented by: Insulin Glargine (Lantus) 30 unit SQ BID [facility] Insulin Human Lispro (Humalog) 0 unit SQ [facility]; Protocol Last Admin: 10/21/19 11:53 Dose: 8 unit Documented by: Lorazepam (Ativan) 0.5 mg IV Q6HP PRN PRN Reason: ANXIETY/SEDATION Last Admin: 10/21/19 02:10 Dose: 0.5 mg Documented by: Ondansetron HCl (Zofran) 4 mg IV Q6HP PRN PRN Reason: Nausea And Vomiting Quetiapine Fumarate (Seroquel) 25 mg PO BID [facility] Last Admin: 10/21/19 10:54 Dose: Not Given Documented by: Senna (Senokot) 2 tab PO [facility] Last Admin: 10/20/19 21:50 Dose: Not Given Documented by: Sodium Chloride (Saline Flush) 10 ml IV Q8 [facility] Last Admin: 10/21/19 13:16 Dose: Not Given Documented by: Vancomycin HCl (Vancomycin Per Pharmacy) 1 order IV UD [facility]; Protocol - ABG Interpretation ABG results: 10/20/19 13:12 ABG Methemoglobin 0.3 L VBG pH 7.30 L VBG pCO2 29.0 L VBG pO2 56 H VBG HCO3 14.0 L VBG Total CO2 14.9 L VBG O2 Saturation 73.5 H VBG Base Excess -11.1 L Medical - PN: A/P - Time Spent With Patient Total time spent is greater than 50% in coordination of care (as documented) at patient's floor/unit and/or counseling patient: - Narrative A/P Narrative: Assessment: *Uncontrolled DM type 2 w/DKA: -Patient has not used diabetic medications for days. *lactic acidosis: resolved *LIZ, resolved: *UTI: *Cirrhosis w/thrombocytopenia: has had extensive w/u to determine etiology *HTN *Hypernatremia: *Staphy aureus bacteremia: -echo Plan: -home Lantus started, titrate up to home dose, SSI -hypotonic IVF, f/u sodium -ARB/HCTZ held for LIZ -Ceftriaxone was started in the ER for UTI. Continue ceftriaxone -Repeat her platelets -For bacteremia-staph aureus, repeat blood culture, vancomycin, echocardiogram. -ID consult -ppx: Heparin CODE STATUS: Full
[2019-10-21 16:17] LABS: Phosphorous 2.1 mg/dL (2.7-4.5)
--- NOTE | 2019-10-21 16:58 | Event Note ---
Called by Dr. Kraus. Pt with MSSA bacteremia. Stop current antibiotics. Start IV Cefazolin 2 gm q8 hrs. Repeat blood Cx every other day until negative. Full note to follow tomorrow Jaison Colvin MD Infectious diseases
[2019-10-21] MEDS ORDERED: ceFAZolin 2 GM in DEXTROSE 5% IN WATER 50 ML IV SCH (17:00)
[2019-10-21] MEDS ORDERED: cefTRIAXone 1 GM in DEXTROSE 5% IN WATER 50 ML IV SCH (18:00)
[2019-10-21] MEDS: SENNOSIDES 1 TABLET PO SCH (20:43)
[2019-10-21] MEDS ORDERED: HALOPERIDOL LACTATE 5 MG/ML VIAL IV ONE (20:53)
[2019-10-21] MEDS ORDERED: HALOPERIDOL LACTATE 5 MG/ML VIAL ONE (20:57)
[2019-10-21] MEDS ORDERED: POTASSIUM PHOSPHATE 20 MEQ in DEXTROSE 5% IN WATER 250 ML IV ONE (20:57)
[2019-10-21] MEDS ORDERED: INSULIN GLARGINE, HUMAN 1 UNIT/0.01 ML SQ SCH ×2 (21:00)
[2019-10-21 21:09] LABS: Blood Urea Nitrogen 25 mg/dl (6-20); Calcium 9.1 mg/dl (8.6-10.4); Carbon Dioxide 24 mmol/L (22-30); Chloride 116 mmol/L (96-108); Glomerular Filtration Rate 99; Glucose 328 mg/dL (70-105)
[2019-10-21] MEDS ORDERED: DEXTROSE 5% IN WATER 1,000 ML IV SCH (21:15)
[2019-10-21] MEDS ORDERED: POTASSIUM PHOSPHATE 66 MEQ/15 ML VIAL IV ONE (21:41)
[2019-10-21] MEDS: ceFAZolin 1 GM VIAL IV SCH (22:12)
[2019-10-22] MEDS ORDERED: INSULIN REGULAR, HUMAN 50 UNIT in 0.9 % SODIUM CHLORIDE 99.5 ML IV SCH (00:15)
[2019-10-22] MEDS ORDERED: INSULIN REGULAR, HUMAN 1 UNIT/0.01 ML UNIT ONE ×2 (00:16→00:17)
[2019-10-22] MEDS ORDERED: 0.9 % SODIUM CHLORIDE 100 ML IV ONE (00:31)
[2019-10-22] MEDS: LORazepam 2 MG/ML VIAL IV PRN ×2 (02:24→08:18)
--- NOTE | 2019-10-22 03:25 | Cat Scan Report ---
CLINICAL INFORMATION: Confusion COMPARISON: None. TECHNIQUE: 2.5 mm helical slices were obtained in the skull base to vertex. Following reconstruction, axial reformatted images were reviewed at bone and parenchymal windows. The exam was performed using radiation dose optimization techniques including, but not limited to, automated exposure control, adjustment of the mA and/or kV according to patient size and use of iterative reconstruction technique. FINDINGS: The ventricles, sulci, fissures, and cisterns are normal in size and configuration for age. No extra-axial fluid collections are identified. The cerebrum, brainstem and cerebellum are unremarkable. There is no evidence of hemorrhage, mass effect, or edema. Bone windows show no osseous abnormality. IMPRESSION: Normal head CT without contrast for age. Interpreted and Authenticated by: Karthikeyan Dia 10/22/19
[2019-10-22] MEDS: ceFAZolin 1 GM VIAL IV SCH ×3 (05:34→21:27)
[2019-10-22] MEDS: 0.9 % SODIUM CHLORIDE 10 ML SYRINGE IV SCH ×3 (05:34→21:27)
[2019-10-22 06:10] LABS: Hematocrit 36.8 % (41.0-55.0); Hemoglobin 12.1 g/dL (13.5-16.5); Mean Cell Volume 100.2 fL (80.0-100.0); Mean Platelet Volume 8.4 fL (7.4-10.4); Platelet Count 63 K/mcL (140-440); RBC 3.68 M/mcL (4.50-5.90); Red Cell Distribution Width 14.7 % (11.5-14.5); WBC 6.4 K/mcL (4.5-11.0)
[2019-10-22 06:25] LABS: ALT/SGPT 12 U/l (0-40); AST/SGOT 29 U/l (0-37); Albumin 2.1 gm/dL (3.2-5.2); Albumin/Globulin Ratio 0.4 (1.0-2.3); Alkaline Phosphatase 92 U/L (39-117); Bilirubin,Direct 0.4 mg/dL (0.0-0.3); Blood Urea Nitrogen 20 mg/dl (6-20); Calcium 9.2 mg/dl (8.6-10.4); Carbon Dioxide 23 mmol/L (22-30); Chloride 119 mmol/L (96-108); Globulin 5.3 gm/dL (2.2-3.7); Glomerular Filtration Rate 104; Glucose 210 mg/dL (70-105); Lactate Dehydrogenase 230 U/L (94-250); Phosphorous 1.5 mg/dL (2.7-4.5); Triglycerides 97 mg/dl (<150); Uric Acid 6.7 mg/dL (2.5-8.0)
[2019-10-22 06:27] LABS: Basophils % (Manual) 1 % (0-2); Lymphocytes % 7 % (15-49); Macrocytosis 1+ (NONE SEEN); Monocytes % (Manual) 7 % (1-12); Platelet Estimate DECREASED (NORMAL); RBC Morphology ABNORMAL (NORMAL); Segmented Neutrophils % 85 % (38-78)
[2019-10-22] MEDS: INSULIN REGULAR, HUMAN 50 UNIT in 0.9 % SODIUM CHLORIDE 99.5 ML IV SCH ×2 (07:25→18:14)
[2019-10-22] MEDS: INSULIN LISPRO 1 UNIT/0.01 ML UNIT SQ SCH ×4 (07:32→20:41)
[2019-10-22] MEDS ORDERED: HYDROCHLOROTHIAZIDE 25 MG TABLET PO ONE (08:40)
--- NOTE | 2019-10-22 08:51 | Internal Med Progress Note ---
Medical - PN: Subj Patient information: Note initiated : 10/22/19 at 8:28 am Service Date, if different from initiated Date: [] Patient: Tarun Molina a 49 y/o M admitted on 10/20/19 for BLOOD SUGAR PROBLEM. Chief Complaint: [] Interval history: Mr. Molina is a 49 year old M with a history of diabetes type 2, and high blood pressure who was presented to the ER because he does not feel well for days. Patient is tired and lethargic and a poor historian. As per patient and , patient has not been feeling well for 1 month, but his symptoms have been worsening over the past week. Over the past week he has been having nausea, dizziness, back pain, and dysuria. He has not used diabetic medications for days. In the ER, he was found to have hyperglycemia, 662. 3 L normal saline, 10 units of regular insulin, 1 g of ceftriaxone were given. When I saw this patient in the ER, he felt better. But he still had these symptoms mentioned above. Blood glucose 485. 10/21 When I saw this patient this morning, he was sleeping. He was given Ativan for agitation. Patient has tachycardia and tachypnea White blood cells normalized today, 9.3. Platelet went down to 69 from 107 yesterday Anion gap closed, 14.0 Blood culture showed gram-positive cocci 10/22 Patient slept most the day yesterday after given sedatives. Was agitated last night and given Ativan and a one-time dose of Haldol. This morning attempted to get echocardiogram the patient was agitated and pulling at lines, nurse was able to communicate with him to some degree and patient was following some commands but was not cooperative with exam and thus needed some as needed Ativan to undergo the echo. At this time patient is drowsy. Sodium elevated again today. Increase hypotonic solution. And adjust IV riders to hypotonic solution. Follow-up lactate. unable to gather review of systems given current mental state. - Constitutional Vitals: Vital Signs Temp Pulse Resp BP Pulse Ox 100.8 F H 120 H 31 H 153/82 96 10/22/19 08:06 10/22/19 08:06 10/22/19 08:06 10/22/19 08:00 10/22/19 08:06 Period Temp Pulse Resp BP Sys/Garcia Pulse Ox Last 24 Hr 97.8 F-100.9 F 87-123 19-36 105-153/54-89 92-99 Intake and Output 10/21/19 10/22/19 10/22/19 21:59 05:59 13:59 Intake Total 312.5455 Output Total 1475 960 290 Balance -2725 -804.4545 -290 Weight 88.904 kg Intake & Output: Intake & Output 10/21/19 10/22/19 10/22/19 21:59 05:59 13:59 Intake Total 312.5455 Output Total 1475 960 290 Balance -2056 -777.4545 -131 Weight 88.904 kg Intake: IV 312.5455 HumuLIN R 50 UNIT In Sodium 58 Chloride 0.9% 99.5 ml @ 8 UNIT/ HR 16 mls/hr IV [facility] Rx#: [id number] Potassium Phosphate 20 Meq In 254.5455 Dextrose 5% in Water 250 ml @ 127.273 mls/hr IV ONCE ONE Rx#: [id number] Output: Urine Catheter Amount 1472 960 290 Other: Urine Appearance Clear Clear Cloudy Sediment Uretheral ([place]) Clear Clear Cloudy Urine Color Bright Yellow Bright Yellow Dark Yellow Uretheral ([place]) Bright Yellow Bright Yellow Dark Yellow Urine Odor Normal Exam: General: drowsy after ativan, No acute Distress Eyes/N/T: EOMI, Head/Neck: neck supple, CV: tachy but regular, No murmurs, Pulm: Clear b/l, no wheezing/rhonchi/rales Abd: soft, nondistended and nontender, +BS x4 Ext: no clubbing/cyanosis/edema Neuro: drowsy after sedation, no focal deficits, moves all extremities spontaneously Skin: warm/dry Medical - PN: Obj Da - Labs CBC & Chem 7: 10/22/19 05:16 10/22/19 05:16 Labs: Abnormal Lab Results 10/22/19 10/22/19 10/22/19 05:16 05:16 05:16 WBC RBC 3.68 L Hgb 12.1 L Hct 36.8 L MCV 100.2 H RDW 14.7 H Plt Count 63 L Gran % Lymph % (Auto) Gran # Lymph # (Auto) Seg Neutrophils % 85 H Lymphocytes % 7 L Platelet Estimate Decreased A Macrocytosis 1+ A ABG Methemoglobin VBG pH VBG pCO2 VBG pO2 VBG HCO3 VBG Total CO2 VBG O2 Saturation VBG Base Excess VBG Lactic Acid 2.4 H Carboxyhemoglobin Total Hemoglobin Sodium 153 H Chloride 119 H Carbon Dioxide Anion Gap BUN Creatinine Glucose 210 H Calcium Phosphorus 1.5 L Total Bilirubin Direct Bilirubin 0.4 H Alkaline Phosphatase Total Protein Albumin 2.1 L Globulin 5.3 H Albumin/Globulin Ratio 0.4 L Urine Glucose (UA) Urine Ketones Urine Occult Blood Ur Leukocyte Esterase Urine RBC Urine WBC 10/21/19 10/21/19 10/21/19 18:43 18:43 10:30 WBC RBC Hgb Hct MCV RDW Plt Count Gran % Lymph % (Auto) Gran # Lymph # (Auto) Seg Neutrophils % Lymphocytes % Platelet Estimate Macrocytosis ABG Methemoglobin VBG pH VBG pCO2 VBG pO2 VBG HCO3 VBG Total CO2 VBG O2 Saturation VBG Base Excess VBG Lactic Acid 2.1 H Carboxyhemoglobin Total Hemoglobin Sodium 149 H Chloride 116 H Carbon Dioxide Anion Gap BUN 25 H Creatinine Glucose 328 H Calcium Phosphorus 2.1 L Total Bilirubin Direct Bilirubin Alkaline Phosphatase Total Protein Albumin Globulin Albumin/Globulin Ratio Urine Glucose (UA) Urine Ketones Urine Occult Blood Ur Leukocyte Esterase Urine RBC Urine WBC 10/21/19 10/21/19 10/21/19 10:30 05:42 03:38 WBC RBC 3.35 L Hgb 11.2 L Hct 34.0 L MCV 101.5 H RDW Plt Count 69 L Gran % 89.3 H Lymph % (Auto) 9.0 L Gran # 8.3 H Lymph # (Auto) 0.8 L Seg Neutrophils % Lymphocytes % Platelet Estimate Macrocytosis ABG Methemoglobin VBG pH VBG pCO2 VBG pO2 VBG HCO3 VBG Total CO2 VBG O2 Saturation VBG Base Excess VBG Lactic Acid Carboxyhemoglobin Total Hemoglobin Sodium 149 H 150 H Chloride 114 H 114 H Carbon Dioxide Anion Gap BUN 29 H 31 H Creatinine Glucose 290 H 309 H Calcium Phosphorus Total Bilirubin Direct Bilirubin Alkaline Phosphatase Total Protein Albumin Globulin Albumin/Globulin Ratio Urine Glucose (UA) Urine Ketones Urine Occult Blood Ur Leukocyte Esterase Urine RBC Urine WBC 10/21/19 10/21/19 10/20/19 02:42 02:34 22:02 WBC RBC Hgb Hct MCV RDW Plt Count Gran % Lymph % (Auto) Gran # Lymph # (Auto) Seg Neutrophils % Lymphocytes % Platelet Estimate Macrocytosis ABG Methemoglobin VBG pH VBG pCO2 VBG pO2 VBG HCO3 VBG Total CO2 VBG O2 Saturation VBG Base Excess VBG Lactic Acid 2.1 H Carboxyhemoglobin Total Hemoglobin Sodium 149 H Chloride 110 H Carbon Dioxide 19 L 15 L Anion Gap 20.0 H 24.0 H BUN 33 H 34 H Creatinine Glucose 417 H 529 H* Calcium Phosphorus Total Bilirubin Direct Bilirubin Alkaline Phosphatase Total Protein Albumin Globulin Albumin/Globulin Ratio Urine Glucose (UA) Urine Ketones Urine Occult Blood Ur Leukocyte Esterase Urine RBC Urine WBC 10/20/19 10/20/19 10/20/19 20:00 18:15 14:26 WBC RBC Hgb Hct MCV RDW Plt Count Gran % Lymph % (Auto) Gran # Lymph # (Auto) Seg Neutrophils % Lymphocytes % Platelet Estimate Macrocytosis ABG Methemoglobin VBG pH VBG pCO2 VBG pO2 VBG HCO3 VBG Total CO2 VBG O2 Saturation VBG Base Excess VBG Lactic Acid 2.2 H Carboxyhemoglobin Total Hemoglobin Sodium Chloride Carbon Dioxide 14 L Anion Gap 28.0 H BUN 34 H Creatinine Glucose 487 H* Calcium Phosphorus Total Bilirubin Direct Bilirubin Alkaline Phosphatase Total Protein Albumin Globulin Albumin/Globulin Ratio Urine Glucose (UA) >=500 A Urine Ketones 80 A Urine Occult Blood 0.2 A Ur Leukocyte Esterase 500 A Urine RBC 2 H Urine WBC 109 H 10/20/19 10/20/19 10/20/19 13:12 13:11 12:56 WBC 17.5 H RBC 4.35 L Hgb Hct MCV 103.0 H RDW 15.3 H Plt Count 107 L Gran % 90.4 H Lymph % (Auto) 5.8 L Gran # 15.8 H Lymph # (Auto) 1.0 L Seg Neutrophils % Lymphocytes % Platelet Estimate Macrocytosis ABG Methemoglobin 0.3 L VBG pH 7.30 L VBG pCO2 29.0 L VBG pO2 56 H VBG HCO3 14.0 L VBG Total CO2 14.9 L VBG O2 Saturation 73.5 H VBG Base Excess -11.1 L VBG Lactic Acid 4.3 H* Carboxyhemoglobin 2.7 H Total Hemoglobin 11.9 L Sodium Chloride Carbon Dioxide Anion Gap BUN Creatinine Glucose Calcium Phosphorus Total Bilirubin Direct Bilirubin Alkaline Phosphatase Total Protein Albumin Globulin Albumin/Globulin Ratio Urine Glucose (UA) Urine Ketones Urine Occult Blood Ur Leukocyte Esterase Urine RBC Urine WBC 10/20/19 12:55 WBC RBC Hgb Hct MCV RDW Plt Count Gran % Lymph % (Auto) Gran # Lymph # (Auto) Seg Neutrophils % Lymphocytes % Platelet Estimate Macrocytosis ABG Methemoglobin VBG pH VBG pCO2 VBG pO2 VBG HCO3 VBG Total CO2 VBG O2 Saturation VBG Base Excess VBG Lactic Acid Carboxyhemoglobin Total Hemoglobin Sodium Chloride 94 L Carbon Dioxide 12 L Anion Gap 37.0 H BUN 36 H Creatinine 1.3 H Glucose 662 H* Calcium 11.1 H Phosphorus Total Bilirubin 1.6 H Direct Bilirubin Alkaline Phosphatase 142 H Total Protein 9.2 H Albumin 3.1 L Globulin 6.1 H Albumin/Globulin Ratio 0.5 L Urine Glucose (UA) Urine Ketones Urine Occult Blood Ur Leukocyte Esterase Urine RBC Urine WBC Meds: Medications Cefazolin Sodium (Ancef) 2 gm IV Q8H [facility] Last Admin: 10/22/19 05:34 Dose: 2 gm Documented by: Dextrose (Dextrose 50%) 50 ml IV UD PRN PRN Reason: Hypoglycemia Diagnostic Test (Pha) (Accu-Chek) 1 each FS ACHS [facility] Last Admin: 10/22/19 07:08 Dose: Not Given Documented by: Diagnostic Test (Pha) (Accu-Chek) 1 each FS Q1 [facility] Last Admin: 10/22/19 08:03 Dose: 1 each Documented by: Docusate Sodium (Colace) 100 mg PO BID [facility] Last Admin: 10/21/19 20:43 Dose: Not Given Documented by: Heparin Sodium (Porcine) (Heparin) 5,000 unit SQ Q12 [facility] Last Admin: 10/21/19 20:43 Dose: Not Given Documented by: Dextrose (Dextrose 5% In Water) 1,000 mls @ 75 mls/hr IV .[id number] [facility] Stop: 10/22/19 23:54 Last Admin: 10/22/19 07:42 Dose: 75 mls/hr Documented by: Insulin Human Regular 50 unit/ (Sodium Chloride) 100 mls @ 16 mls/hr IV Q6H [facility]; Protocol Last Admin: 10/22/19 07:25 Dose: 6.5 unit/hr, 13 mls/hr Documented by: Insulin Glargine (Lantus) 35 unit SQ BID [facility] Last Admin: 10/21/19 22:11 Dose: 35 units Documented by: Insulin Human Lispro (Humalog) 0 unit SQ ACHS [facility]; Protocol Last Admin: 10/22/19 07:32 Dose: Not Given Documented by: Lorazepam (Ativan) 0.5 mg IV Q6HP PRN PRN Reason: ANXIETY/SEDATION Last Admin: 10/22/19 08:18 Dose: 0.5 mg Documented by: Ondansetron HCl (Zofran) 4 mg IV Q6HP PRN PRN Reason: Nausea And Vomiting Quetiapine Fumarate (Seroquel) 25 mg PO BID [facility] Last Admin: 10/21/19 20:43 Dose: Not Given Documented by: Senna (Senokot) 2 tab PO HS [facility] Last Admin: 10/21/19 20:43 Dose: Not Given Documented by: Sodium Chloride (Saline Flush) 10 ml IV Q8 [facility] Last Admin: 10/22/19 05:34 Dose: 10 ml Documented by: - ABG Interpretation ABG results: 10/20/19 13:12 ABG Methemoglobin 0.3 L VBG pH 7.30 L VBG pCO2 29.0 L VBG pO2 56 H VBG HCO3 14.0 L VBG Total CO2 14.9 L VBG O2 Saturation 73.5 H VBG Base Excess -11.1 L Medical - PN: A/P - Time Spent With Patient Total time spent is greater than 50% in coordination of care (as documented) at patient's floor/unit and/or counseling patient: - Narrative A/P Narrative: Assessment: *DM type 2 w/DKA: -Patient has not used diabetic medications for days. *Bacteremia (MSSA): -repeat BC + -echo *UTI ([facility]): *Encephalopathy (confusion at night): heavy drinker when he was young, but recently per notes rarely -CT brain no acute findings -?etoh *Sepsis: 2/2 above -leukocytosis resolved *lactic acidosis: *Hypernatremia (corrected sodium on admit was hypernatremic): + iatrogenic with initial fluid resuscitation -has been admitted in past for dehydration *LIZ, resolved: *Cirrhosis w/thrombocytopenia: has had extensive w/u to determine etiology but likely etoh *HTN: *Hypophos: Plan: -insulin gtt -increase d5w, f/u sodium and lactate -d/w with pharm to make soln's hypotonic -Cefazolin, serial BC's, ID consult -echo pending -ARB/HCTZ held for LIZ -replete electrolytes -obtain MRI wednesday if still altered after correcting metabolic state -ppx: Heparin (hold if PLT<50k) CODE STATUS: Full
[2019-10-22] MEDS ORDERED: DEXTROSE 5% IN WATER 500 ML IV SCH (09:00)
[2019-10-22] MEDS ORDERED: INSULIN GLARGINE, HUMAN 1 UNIT/0.01 ML SQ SCH (09:00)
[2019-10-22] MEDS ORDERED: LABETALOL 5 MG/ML ML IV PRN (09:33)
[2019-10-22] MEDS: DOCUSATE SODIUM 100 MG CAPSULE PO SCH ×2 (09:52→20:41)
[2019-10-22] MEDS: HEPARIN 5,000 UNIT/ML VIAL SQ SCH ×2 (09:52→20:42)
[2019-10-22] MEDS: INSULIN GLARGINE, HUMAN 1 UNIT/0.01 ML SQ SCH ×2 (09:52→21:26)
[2019-10-22] MEDS: QUEtiapine 25 MG TABLET PO SCH ×2 (09:53→20:09)
[2019-10-22] MEDS ORDERED: POTASSIUM PHOSPHATE 20 MEQ in DEXTROSE 5% IN WATER 250 ML IV ONE (10:00)
[2019-10-22 11:14] LABS: Alcohol, Blood < 10.0 mg/dL (<10); Alcohol,Blood < 0.010 gm/dl (<0.010)
[2019-10-22 11:17] LABS: Amphetamine Screen,Urine NONE DETECTED (NONDETECTED); Barbiturate Screen,Urine NONE DETECTED (NONDETECTED); Benzodiazepines Screen,Urine NONE DETECTED (NONDETECTED); Cannabinoid Screen,Urine NONE DETECTED (NONDETECTED); Cocaine Screen,Urine NONE DETECTED (NONDETECTED); Opiate Screen,Urine NONE DETECTED (NONDETECTED); Oxycodone, Urine Screen NONE DETECTED (NONDETECTED); Phencyclidine Screen,Urine NONE DETECTED (NONDETECTED)
[2019-10-22 13:58] LABS: Blood Urea Nitrogen 18 mg/dl (6-20); Calcium 8.8 mg/dl (8.6-10.4); Carbon Dioxide 24 mmol/L (22-30); Glomerular Filtration Rate 110; Glucose 129 mg/dL (70-105)
[2019-10-22 14:00] LABS: Chloride 118 mmol/L (96-108)
[2019-10-22] MEDS: DEXTROSE 5% IN WATER 1,000 ML IV SCH ×2 (14:59→20:24)
--- NOTE | 2019-10-22 15:16 | Infectious Disease Consult ---
History of Present Illness Patient information: Note initiated : 10/22/19 at 3:14 pm Service Date, if different from initiated Date: [] Patient: Tarun Molina 49 y/o M admitted on 10/20/19 for BLOOD SUGAR PROBLEM. Chief Complaint: [] Consult date: 10/22/19 Requesting Physician: Merari Holguin Reason for Consult: Staph aureus bacteremia Chief complaint: Pt was confused and brought by family to hospital History of present illness: 49 year old man with PMHx of: - uncontrolled DM2: A1c 13, on insulin Pt was admitted to [facility] on 10/20 after not feeling well for last few days. HPI obtained from chart review and talking to family (mother, priscilla) as pt is obtunded. Patient has not been feeling well for 1 month, but his symptoms have been worsening over the past week. Over the past week he has been having nausea, dizziness, back pain, and dysuria. He has not used diabetic medications for days. In the ER, he was found to have hyperglycemia, 662. 3 L normal saline, 10 units of regular insulin, 1 g of ceftriaxone were given. He was subseq managed as DKA, started on insulin drip, KCL. Ceftriaxone was added for concerns of UTI. Blood Cx were sent which came back +ve same day as GPC in clusters. IV vanc was addded. GPC in clusters on verigen were found to be Staph aureus with neg mec A gene. IV Vanc was stopped per discussion with me yesterday and Ceftriaxone switched to IV Cefazolin 2 gm q8 hrs. At time of visit, ptw as no awake. Per mother and fiancee, he has not been takin g his insulin for about a month, and didnot check his blood sugars as instructed. They denied any skin boils, recent procedures, injections. They live in a RV just adjacent to hospital. He has 2 pet [employer] [facility] dogs. Review of Systems ROS unobtainable: due to mental status Past History Past family history: no sick contacts Past social history: lives in a trailer with mother in [facility] [place] Medications and Allergies Home Medications Medication Instructions Recorded Confirmed Type Insulin Glargine,Hum.rec.anlog 50 unit SQ BID 10/20/19 10/20/19 History [Lantus Solostar] Insulin Lispro [Humalog] See Protocol SQ QID 10/20/19 10/20/19 History Losartan/Hydrochlorothiazide 100 mg PO DAILY 10/20/19 10/20/19 History [Losartan-Hctz 100-25 mg Tab] Acetaminophen W/Codeine #3 1 tab PO Q4-6HP PRN 10/22/19 10/22/19 History [Tylenol #3] Allergies Allergy/AdvReac Type Severity Reaction Status Date / Time latex Allergy Verified 10/20/19 12:45 Physical Examination Vital signs: Temp Pulse Resp BP Pulse Ox 37.5 C H 98 H 28 H 99/59 95 10/22/19 13:58 10/22/19 13:58 10/22/19 13:58 10/22/19 13:00 10/22/19 13:58 General appearance: lethargic Eyes pulmonary: nonicteric Auscultation: bilateral: clear Cardiovascular: other (s1 s2 normal, no m/r/g) Gastrointestinal: normoactive bowel sounds, soft, non-tender Integumentary: other (no rash) Extremities: other (has onychomycosis of both great toe nails, no edema) Gait: other (no tenderness over b/l knee joints. Has some point tenderness over b/l shoulder joints) pupils equal and round, unable to assess due to mental status Results - Laboratory Findings CBC and BMP: 10/22/19 05:16 10/22/19 17:51 Abnormal lab findings: Abnormal Labs 10/20/19 10/20/19 10/20/19 12:55 12:56 13:11 WBC 17.5 H RBC 4.35 L Hgb Hct MCV 103.0 H RDW 15.3 H Plt Count 107 L Gran % 90.4 H Lymph % (Auto) 5.8 L Gran # 15.8 H Lymph # (Auto) 1.0 L Seg Neutrophils % Lymphocytes % Platelet Estimate Macrocytosis ABG Methemoglobin VBG pH VBG pCO2 VBG pO2 VBG HCO3 VBG Total CO2 VBG O2 Saturation VBG Base Excess VBG Lactic Acid 4.3 H* Carboxyhemoglobin Total Hemoglobin Sodium Chloride 94 L Carbon Dioxide 12 L Anion Gap 37.0 H BUN 36 H Creatinine 1.3 H Glucose 662 H* Hemoglobin A1c Calcium 11.1 H Phosphorus Total Bilirubin 1.6 H Direct Bilirubin Alkaline Phosphatase 142 H Total Protein 9.2 H Albumin 3.1 L Globulin 6.1 H Albumin/Globulin Ratio 0.5 L Urine Glucose (UA) Urine Ketones Urine Occult Blood Ur Leukocyte Esterase Urine RBC Urine WBC 10/20/19 10/20/19 10/20/19 13:12 14:26 18:15 WBC RBC Hgb Hct MCV RDW Plt Count Gran % Lymph % (Auto) Gran # Lymph # (Auto) Seg Neutrophils % Lymphocytes % Platelet Estimate Macrocytosis ABG Methemoglobin 0.3 L VBG pH 7.30 L VBG pCO2 29.0 L VBG pO2 56 H VBG HCO3 14.0 L VBG Total CO2 14.9 L VBG O2 Saturation 73.5 H VBG Base Excess -11.1 L VBG Lactic Acid Carboxyhemoglobin 2.7 H Total Hemoglobin 11.9 L Sodium Chloride Carbon Dioxide 14 L Anion Gap 28.0 H BUN 34 H Creatinine Glucose 487 H* Hemoglobin A1c Calcium Phosphorus Total Bilirubin Direct Bilirubin Alkaline Phosphatase Total Protein Albumin Globulin Albumin/Globulin Ratio Urine Glucose (UA) >=500 A Urine Ketones 80 A Urine Occult Blood 0.2 A Ur Leukocyte Esterase 500 A Urine RBC 2 H Urine WBC 109 H 10/20/19 10/20/19 10/21/19 20:00 22:02 02:34 WBC RBC Hgb Hct MCV RDW Plt Count Gran % Lymph % (Auto) Gran # Lymph # (Auto) Seg Neutrophils % Lymphocytes % Platelet Estimate Macrocytosis ABG Methemoglobin VBG pH VBG pCO2 VBG pO2 VBG HCO3 VBG Total CO2 VBG O2 Saturation VBG Base Excess VBG Lactic Acid 2.2 H Carboxyhemoglobin Total Hemoglobin Sodium 149 H Chloride 110 H Carbon Dioxide 15 L 19 L Anion Gap 24.0 H 20.0 H BUN 34 H 33 H Creatinine Glucose 529 H* 417 H Hemoglobin A1c Calcium Phosphorus Total Bilirubin Direct Bilirubin Alkaline Phosphatase Total Protein Albumin Globulin Albumin/Globulin Ratio Urine Glucose (UA) Urine Ketones Urine Occult Blood Ur Leukocyte Esterase Urine RBC Urine WBC 10/21/19 10/21/19 10/21/19 02:42 03:38 05:42 WBC RBC 3.35 L Hgb 11.2 L Hct 34.0 L MCV 101.5 H RDW Plt Count 69 L Gran % 89.3 H Lymph % (Auto) 9.0 L Gran # 8.3 H Lymph # (Auto) 0.8 L Seg Neutrophils % Lymphocytes % Platelet Estimate Macrocytosis ABG Methemoglobin VBG pH VBG pCO2 VBG pO2 VBG HCO3 VBG Total CO2 VBG O2 Saturation VBG Base Excess VBG Lactic Acid 2.1 H Carboxyhemoglobin Total Hemoglobin Sodium 150 H Chloride 114 H Carbon Dioxide Anion Gap BUN 31 H Creatinine Glucose 309 H Hemoglobin A1c Calcium Phosphorus Total Bilirubin Direct Bilirubin Alkaline Phosphatase Total Protein Albumin Globulin Albumin/Globulin Ratio Urine Glucose (UA) Urine Ketones Urine Occult Blood Ur Leukocyte Esterase Urine RBC Urine WBC 10/21/19 10/21/19 10/21/19 10:30 10:30 18:43 WBC RBC Hgb Hct MCV RDW Plt Count Gran % Lymph % (Auto) Gran # Lymph # (Auto) Seg Neutrophils % Lymphocytes % Platelet Estimate Macrocytosis ABG Methemoglobin VBG pH VBG pCO2 VBG pO2 VBG HCO3 VBG Total CO2 VBG O2 Saturation VBG Base Excess VBG Lactic Acid 2.1 H Carboxyhemoglobin Total Hemoglobin Sodium 149 H Chloride 114 H Carbon Dioxide Anion Gap BUN 29 H Creatinine Glucose 290 H Hemoglobin A1c Calcium Phosphorus 2.1 L Total Bilirubin Direct Bilirubin Alkaline Phosphatase Total Protein Albumin Globulin Albumin/Globulin Ratio Urine Glucose (UA) Urine Ketones Urine Occult Blood Ur Leukocyte Esterase Urine RBC Urine WBC 10/21/19 10/22/19 10/22/19 18:43 05:16 05:16 WBC RBC Hgb Hct MCV RDW Plt Count Gran % Lymph % (Auto) Gran # Lymph # (Auto) Seg Neutrophils % Lymphocytes % Platelet Estimate Macrocytosis ABG Methemoglobin VBG pH VBG pCO2 VBG pO2 VBG HCO3 VBG Total CO2 VBG O2 Saturation VBG Base Excess VBG Lactic Acid 2.4 H Carboxyhemoglobin Total Hemoglobin Sodium 149 H 153 H Chloride 116 H 119 H Carbon Dioxide Anion Gap BUN 25 H Creatinine Glucose 328 H 210 H Hemoglobin A1c Calcium Phosphorus 1.5 L Total Bilirubin Direct Bilirubin 0.4 H Alkaline Phosphatase Total Protein Albumin 2.1 L Globulin 5.3 H Albumin/Globulin Ratio 0.4 L Urine Glucose (UA) Urine Ketones Urine Occult Blood Ur Leukocyte Esterase Urine RBC Urine WBC 10/22/19 10/22/19 10/22/19 05:16 05:16 12:58 WBC RBC 3.68 L Hgb 12.1 L Hct 36.8 L MCV 100.2 H RDW 14.7 H Plt Count 63 L Gran % Lymph % (Auto) Gran # Lymph # (Auto) Seg Neutrophils % 85 H Lymphocytes % 7 L Platelet Estimate Decreased A Macrocytosis 1+ A ABG Methemoglobin VBG pH VBG pCO2 VBG pO2 VBG HCO3 VBG Total CO2 VBG O2 Saturation VBG Base Excess VBG Lactic Acid Carboxyhemoglobin Total Hemoglobin Sodium 152 H Chloride 118 H Carbon Dioxide Anion Gap BUN Creatinine Glucose 129 H Hemoglobin A1c 13.0 H Calcium Phosphorus Total Bilirubin Direct Bilirubin Alkaline Phosphatase Total Protein Albumin Globulin Albumin/Globulin Ratio Urine Glucose (UA) Urine Ketones Urine Occult Blood Ur Leukocyte Esterase Urine RBC Urine WBC 10/22/19 12:58 WBC RBC Hgb Hct MCV RDW Plt Count Gran % Lymph % (Auto) Gran # Lymph # (Auto) Seg Neutrophils % Lymphocytes % Platelet Estimate Macrocytosis ABG Methemoglobin VBG pH VBG pCO2 VBG pO2 VBG HCO3 VBG Total CO2 VBG O2 Saturation VBG Base Excess VBG Lactic Acid 2.7 H Carboxyhemoglobin Total Hemoglobin Sodium Chloride Carbon Dioxide Anion Gap BUN Creatinine Glucose Hemoglobin A1c Calcium Phosphorus Total Bilirubin Direct Bilirubin Alkaline Phosphatase Total Protein Albumin Globulin Albumin/Globulin Ratio Urine Glucose (UA) Urine Ketones Urine Occult Blood Ur Leukocyte Esterase Urine RBC Urine WBC Microbiology: Microbiology 10/20/19 14:26 Urine - Clean Void Mid-Stream Urine Culture - Preliminary Staphylococcus aureus 10/20/19 15:48 Blood Blood Culture - Preliminary Staphylococcus aureus 10/21/19 12:38 Blood Blood Culture - Preliminary Gram positive cocci 10/21/19 12:23 Blood Blood Culture - Preliminary Gram positive cocci 10/20/19 15:43 Blood Blood Culture - Preliminary Gram positive cocci 10/20/19 19:29 Nose MRSA (PCR) - Final Assessment and Plan - Narrative A/P Narrative: A: 1. MSSA bacteremia: - unsure of source. Being insulin dependent DM2, it is possible that he might have skin translocation of MSSA during insulin injection or blood sugar testing - pending TTE report - given multiple +ve blood Cx (2/2 sets on 10/20 and 10/21 so far), will need [facility] evaluation 2. DKA: anion gap 10 today <------------37 at admission - Blood Glu 129-210 today <------------- 662 at admission 3. Rt shoulder tenderness: past Hx of rotator cuff tear Recommendations: - Continue IV Cefazolin 2 gm q8 hrs - blood Cx 2 sets, every other day until negative blood Cx for 48 hrs. Once negative, he could get a PICC line placement - will pursue [facility] as Outpatient - If blood Cx from 10/23 are also +ve; will pursue imaging of both shoulders, C/T/L spine will follow Jaison Colvin MD Infectious diseases
[2019-10-22 18:53] LABS: Blood Urea Nitrogen 15 mg/dl (6-20); Calcium 8.9 mg/dl (8.6-10.4); Carbon Dioxide 25 mmol/L (22-30); Glomerular Filtration Rate 110; Glucose 164 mg/dL (70-105)
[2019-10-22 18:54] LABS: Chloride 115 mmol/L (96-108)
[2019-10-22] MEDS ORDERED: POTASSIUM CHLORIDE 20 MEQ TABLET PO ONE (19:13)
[2019-10-22] MEDS ORDERED: DEXTROSE 5% IN WATER 1,000 ML IV SCH (19:17)
[2019-10-22] MEDS ORDERED: hydrOXYzine 25 MG TABLET PO ONE (19:32)
[2019-10-22] MEDS ORDERED: HALOPERIDOL LACTATE 5 MG/ML VIAL IV PRN (19:33)
[2019-10-22] MEDS ORDERED: POTASSIUM CHLORIDE 40 MEQ in DEXTROSE 5% IN WATER 500 ML IV ONE (20:22)
[2019-10-22] MEDS ORDERED: MELATONIN 3 MG TABLET PO PRN (21:00)
[2019-10-22] MEDS: SENNOSIDES 1 TABLET PO SCH (21:08)
[2019-10-22] MEDS ORDERED: POTASSIUM CHLORIDE 20 MEQ/10 ML VIAL IV ONE (21:10)
[2019-10-23] MEDS: INSULIN REGULAR, HUMAN 50 UNIT in 0.9 % SODIUM CHLORIDE 99.5 ML IV SCH ×3 (01:59→08:06)
[2019-10-23] MEDS: ceFAZolin 1 GM VIAL IV SCH ×3 (05:34→21:39)
[2019-10-23] MEDS: 0.9 % SODIUM CHLORIDE 10 ML SYRINGE IV SCH ×3 (05:35→21:39)
[2019-10-23 07:05] LABS: ALT/SGPT 10 U/l (0-40); AST/SGOT 32 U/l (0-37); Albumin/Globulin Ratio 0.4 (1.0-2.3); Alkaline Phosphatase 83 U/L (39-117); Bilirubin,Total 1.1 mg/dL (0.0-1.0); Blood Urea Nitrogen 16 mg/dl (6-20); Calcium 8.2 mg/dl (8.6-10.4); Carbon Dioxide 27 mmol/L (22-30); Globulin 4.5 gm/dL (2.2-3.7); Glomerular Filtration Rate 110; Glucose 201 mg/dL (70-105); Lactate Dehydrogenase 202 U/L (94-250); Triglycerides 69 mg/dl (<150); Uric Acid 5.5 mg/dL (2.5-8.0)
[2019-10-23 07:18] LABS: Bilirubin,Direct 0.5 mg/dL (0.0-0.3); Chloride 117 mmol/L (96-108); Phosphorous 2.7 mg/dL (2.7-4.5)
[2019-10-23] MEDS: INSULIN LISPRO 1 UNIT/0.01 ML UNIT SQ SCH ×6 (07:21→21:39)
--- NOTE | 2019-10-23 07:31 | Internal Med Progress Note ---
Medical - PN: Subj Patient information: Note initiated : 10/23/19 at 7:24 am Service Date, if different from initiated Date: [] Patient: Tarun Molina a 49 y/o M admitted on 10/20/19 for BLOOD SUGAR PROBLEM. Chief Complaint: [] Interval history: Mr. Molina is a 49 year old M with a history of diabetes type 2, and high blood pressure who was presented to the ER because he does not feel well for days. Patient is tired and lethargic and a poor historian. As per patient and , patient has not been feeling well for 1 month, but his symptoms have been worsening over the past week. Over the past week he has been having nausea, dizziness, back pain, and dysuria. He has not used diabetic medications for days. In the ER, he was found to have hyperglycemia, 662. 3 L normal saline, 10 units of regular insulin, 1 g of ceftriaxone were given. When I saw this patient in the ER, he felt better. But he still had these symptoms mentioned above. Blood glucose 485. 10/21 When I saw this patient this morning, he was sleeping. He was given Ativan for agitation. Patient has tachycardia and tachypnea White blood cells normalized today, 9.3. Platelet went down to 69 from 107 yesterday Anion gap closed, 14.0 Blood culture showed gram-positive cocci 10/22 Patient slept most the day yesterday after given sedatives. Was agitated last night and given Ativan and a one-time dose of Haldol. This morning attempted to get echocardiogram the patient was agitated and pulling at lines, nurse was able to communicate with him to some degree and patient was following some commands but was not cooperative with exam and thus needed some as needed Ativan to undergo the echo. At this time patient is drowsy. Sodium elevated again today. Increase hypotonic solution. And adjust IV riders to hypotonic solution. Follow-up lactate. 10/23 pt became agitated last night was given Vistaril and eventually needed haldol 2 .5mg. drowsy this morning, moans to touch but will not open eyes or verbalize. sodium still high despite d5w. pending repeat lactate. will consult nephro for hypernatremia. unable to gather review of systems given current mental state. - Constitutional Vitals: Vital Signs Temp Pulse Resp BP Pulse Ox 96.2 F L 93 H 19 128/69 99 10/23/19 07:04 10/23/19 07:04 10/23/19 07:04 10/23/19 07:00 10/23/19 07:04 Period Temp Pulse Resp BP Sys/Garcia Pulse Ox Last 24 Hr 96.2 F-100.8 F 76-120 16-36 90-153/54-91 92-100 Intake and Output 10/22/19 10/23/19 10/23/19 21:59 05:59 13:59 Intake Total 1169.5455 1520 Output Total 585 575 120 Balance 584.5455 945 -120 Weight 89.902 kg Intake & Output: Intake & Output 10/22/19 10/23/19 10/23/19 21:59 05:59 13:59 Intake Total 1169.5455 1520 Output Total 585 575 120 Balance 584.5455 945 -120 Weight 89.902 kg Intake: IV 1169.5455 1520 Dextrose 5% in Water 1,000 ml @ 889 1000 130 mls/hr IV .[id number] [facility] Rx#: [id number] HumuLIN R 50 UNIT In Sodium 26 Chloride 0.9% 99.5 ml @ 8 UNIT/ HR 16 mls/hr IV Q6H [facility] Rx#: [id number] Potassium Chloride 40 Meq In 520 Dextrose 5% in Water 500 ml @ 130 mls/hr IV ONCE ONE Rx#: [id number] Potassium Phosphate 20 Meq In 254.5455 Dextrose 5% in Water 250 ml @ 127.273 mls/hr IV ONCE ONE Rx#: [id number] Output: Urine Catheter Amount 585 575 120 Other: Urine Appearance Clear Clear Uretheral ([place]) Clear Urine Color Bright Yellow Bright Yellow Uretheral ([place]) Bright Yellow Exam: General: drowsy again this morning after medications last night, No acute Distre ss Eyes/N/T: EOMI, Head/Neck: neck supple, CV: RRR, No murmurs, Pulm: Clear b/l, no wheezing/rhonchi/rales Abd: soft, nondistended and nontender, +BS x4 Ext: no clubbing/cyanosis/edema Neuro: drowsy after sedation, no focal deficits, moves all extremities spontaneously Skin: warm/dry Medical - PN: Obj Da - Labs CBC & Chem 7: 10/22/19 05:16 10/23/19 04:10 Labs: Abnormal Lab Results 10/23/19 10/22/19 10/22/19 04:10 17:51 17:51 WBC RBC Hgb Hct MCV RDW Plt Count Gran % Lymph % (Auto) Gran # Lymph # (Auto) Seg Neutrophils % Lymphocytes % Platelet Estimate Macrocytosis ABG Methemoglobin VBG pH VBG pCO2 VBG pO2 VBG HCO3 VBG Total CO2 VBG O2 Saturation VBG Base Excess VBG Lactic Acid 2.8 H Carboxyhemoglobin Total Hemoglobin Sodium 152 H 150 H Potassium 3.1 L 3.2 L Chloride 117 H 115 H Carbon Dioxide Anion Gap BUN Creatinine Glucose 201 H 164 H Hemoglobin A1c Calcium 8.2 L Phosphorus Total Bilirubin 1.1 H Direct Bilirubin 0.5 H Alkaline Phosphatase Total Protein Albumin 2.0 L Globulin 4.5 H Albumin/Globulin Ratio 0.4 L Urine Glucose (UA) Urine Ketones Urine Occult Blood Ur Leukocyte Esterase Urine RBC Urine WBC 10/22/19 10/22/19 10/22/19 12:58 12:58 05:16 WBC RBC Hgb Hct MCV RDW Plt Count Gran % Lymph % (Auto) Gran # Lymph # (Auto) Seg Neutrophils % Lymphocytes % Platelet Estimate Macrocytosis ABG Methemoglobin VBG pH VBG pCO2 VBG pO2 VBG HCO3 VBG Total CO2 VBG O2 Saturation VBG Base Excess VBG Lactic Acid 2.7 H Carboxyhemoglobin Total Hemoglobin Sodium 152 H Potassium Chloride 118 H Carbon Dioxide Anion Gap BUN Creatinine Glucose 129 H Hemoglobin A1c 13.0 H Calcium Phosphorus Total Bilirubin Direct Bilirubin Alkaline Phosphatase Total Protein Albumin Globulin Albumin/Globulin Ratio Urine Glucose (UA) Urine Ketones Urine Occult Blood Ur Leukocyte Esterase Urine RBC Urine WBC 10/22/19 10/22/19 10/22/19 05:16 05:16 05:16 WBC RBC 3.68 L Hgb 12.1 L Hct 36.8 L MCV 100.2 H RDW 14.7 H Plt Count 63 L Gran % Lymph % (Auto) Gran # Lymph # (Auto) Seg Neutrophils % 85 H Lymphocytes % 7 L Platelet Estimate Decreased A Macrocytosis 1+ A ABG Methemoglobin VBG pH VBG pCO2 VBG pO2 VBG HCO3 VBG Total CO2 VBG O2 Saturation VBG Base Excess VBG Lactic Acid 2.4 H Carboxyhemoglobin Total Hemoglobin Sodium 153 H Potassium Chloride 119 H Carbon Dioxide Anion Gap BUN Creatinine Glucose 210 H Hemoglobin A1c Calcium Phosphorus 1.5 L Total Bilirubin Direct Bilirubin 0.4 H Alkaline Phosphatase Total Protein Albumin 2.1 L Globulin 5.3 H Albumin/Globulin Ratio 0.4 L Urine Glucose (UA) Urine Ketones Urine Occult Blood Ur Leukocyte Esterase Urine RBC Urine WBC 10/21/19 10/21/19 10/21/19 18:43 18:43 10:30 WBC RBC Hgb Hct MCV RDW Plt Count Gran % Lymph % (Auto) Gran # Lymph # (Auto) Seg Neutrophils % Lymphocytes % Platelet Estimate Macrocytosis ABG Methemoglobin VBG pH VBG pCO2 VBG pO2 VBG HCO3 VBG Total CO2 VBG O2 Saturation VBG Base Excess VBG Lactic Acid 2.1 H Carboxyhemoglobin Total Hemoglobin Sodium 149 H Potassium Chloride 116 H Carbon Dioxide Anion Gap BUN 25 H Creatinine Glucose 328 H Hemoglobin A1c Calcium Phosphorus 2.1 L Total Bilirubin Direct Bilirubin Alkaline Phosphatase Total Protein Albumin Globulin Albumin/Globulin Ratio Urine Glucose (UA) Urine Ketones Urine Occult Blood Ur Leukocyte Esterase Urine RBC Urine WBC 10/21/19 10/21/19 10/21/19 10:30 05:42 03:38 WBC RBC 3.35 L Hgb 11.2 L Hct 34.0 L MCV 101.5 H RDW Plt Count 69 L Gran % 89.3 H Lymph % (Auto) 9.0 L Gran # 8.3 H Lymph # (Auto) 0.8 L Seg Neutrophils % Lymphocytes % Platelet Estimate Macrocytosis ABG Methemoglobin VBG pH VBG pCO2 VBG pO2 VBG HCO3 VBG Total CO2 VBG O2 Saturation VBG Base Excess VBG Lactic Acid Carboxyhemoglobin Total Hemoglobin Sodium 149 H 150 H Potassium Chloride 114 H 114 H Carbon Dioxide Anion Gap BUN 29 H 31 H Creatinine Glucose 290 H 309 H Hemoglobin A1c Calcium Phosphorus Total Bilirubin Direct Bilirubin Alkaline Phosphatase Total Protein Albumin Globulin Albumin/Globulin Ratio Urine Glucose (UA) Urine Ketones Urine Occult Blood Ur Leukocyte Esterase Urine RBC Urine WBC 10/21/19 10/21/19 10/20/19 02:42 02:34 22:02 WBC RBC Hgb Hct MCV RDW Plt Count Gran % Lymph % (Auto) Gran # Lymph # (Auto) Seg Neutrophils % Lymphocytes % Platelet Estimate Macrocytosis ABG Methemoglobin VBG pH VBG pCO2 VBG pO2 VBG HCO3 VBG Total CO2 VBG O2 Saturation VBG Base Excess VBG Lactic Acid 2.1 H Carboxyhemoglobin Total Hemoglobin Sodium 149 H Potassium Chloride 110 H Carbon Dioxide 19 L 15 L Anion Gap 20.0 H 24.0 H BUN 33 H 34 H Creatinine Glucose 417 H 529 H* Hemoglobin A1c Calcium Phosphorus Total Bilirubin Direct Bilirubin Alkaline Phosphatase Total Protein Albumin Globulin Albumin/Globulin Ratio Urine Glucose (UA) Urine Ketones Urine Occult Blood Ur Leukocyte Esterase Urine RBC Urine WBC 10/20/19 10/20/19 10/20/19 20:00 18:15 14:26 WBC RBC Hgb Hct MCV RDW Plt Count Gran % Lymph % (Auto) Gran # Lymph # (Auto) Seg Neutrophils % Lymphocytes % Platelet Estimate Macrocytosis ABG Methemoglobin VBG pH VBG pCO2 VBG pO2 VBG HCO3 VBG Total CO2 VBG O2 Saturation VBG Base Excess VBG Lactic Acid 2.2 H Carboxyhemoglobin Total Hemoglobin Sodium Potassium Chloride Carbon Dioxide 14 L Anion Gap 28.0 H BUN 34 H Creatinine Glucose 487 H* Hemoglobin A1c Calcium Phosphorus Total Bilirubin Direct Bilirubin Alkaline Phosphatase Total Protein Albumin Globulin Albumin/Globulin Ratio Urine Glucose (UA) >=500 A Urine Ketones 80 A Urine Occult Blood 0.2 A Ur Leukocyte Esterase 500 A Urine RBC 2 H Urine WBC 109 H 10/20/19 10/20/19 10/20/19 13:12 13:11 12:56 WBC 17.5 H RBC 4.35 L Hgb Hct MCV 103.0 H RDW 15.3 H Plt Count 107 L Gran % 90.4 H Lymph % (Auto) 5.8 L Gran # 15.8 H Lymph # (Auto) 1.0 L Seg Neutrophils % Lymphocytes % Platelet Estimate Macrocytosis ABG Methemoglobin 0.3 L VBG pH 7.30 L VBG pCO2 29.0 L VBG pO2 56 H VBG HCO3 14.0 L VBG Total CO2 14.9 L VBG O2 Saturation 73.5 H VBG Base Excess -11.1 L VBG Lactic Acid 4.3 H* Carboxyhemoglobin 2.7 H Total Hemoglobin 11.9 L Sodium Potassium Chloride Carbon Dioxide Anion Gap BUN Creatinine Glucose Hemoglobin A1c Calcium Phosphorus Total Bilirubin Direct Bilirubin Alkaline Phosphatase Total Protein Albumin Globulin Albumin/Globulin Ratio Urine Glucose (UA) Urine Ketones Urine Occult Blood Ur Leukocyte Esterase Urine RBC Urine WBC 10/20/19 12:55 WBC RBC Hgb Hct MCV RDW Plt Count Gran % Lymph % (Auto) Gran # Lymph # (Auto) Seg Neutrophils % Lymphocytes % Platelet Estimate Macrocytosis ABG Methemoglobin VBG pH VBG pCO2 VBG pO2 VBG HCO3 VBG Total CO2 VBG O2 Saturation VBG Base Excess VBG Lactic Acid Carboxyhemoglobin Total Hemoglobin Sodium Potassium Chloride 94 L Carbon Dioxide 12 L Anion Gap 37.0 H BUN 36 H Creatinine 1.3 H Glucose 662 H* Hemoglobin A1c Calcium 11.1 H Phosphorus Total Bilirubin 1.6 H Direct Bilirubin Alkaline Phosphatase 142 H Total Protein 9.2 H Albumin 3.1 L Globulin 6.1 H Albumin/Globulin Ratio 0.5 L Urine Glucose (UA) Urine Ketones Urine Occult Blood Ur Leukocyte Esterase Urine RBC Urine WBC Meds: Medications Cefazolin Sodium (Ancef) 2 gm IV Q8H [facility] Last Admin: 10/23/19 05:34 Dose: 2 gm Documented by: Dextrose (Dextrose 50%) 50 ml IV UD PRN PRN Reason: Hypoglycemia Diagnostic Test (Pha) (Accu-Chek) 1 each FS ACHS [facility] Last Admin: 10/23/19 07:21 Dose: Not Given Documented by: Diagnostic Test (Pha) (Accu-Chek) 1 each FS Q1 [facility] Last Admin: 10/23/19 07:14 Dose: 1 each Documented by: Docusate Sodium (Colace) 100 mg PO BID [facility] Last Admin: 10/22/19 20:41 Dose: Not Given Documented by: Heparin Sodium (Porcine) (Heparin) 5,000 unit SQ Q12 [facility] Last Admin: 10/22/19 20:42 Dose: Not Given Documented by: Insulin Human Regular 50 unit/ (Sodium Chloride) 100 mls @ 16 mls/hr IV Q6H [facility]; Protocol Last Admin: 10/23/19 05:31 Dose: Not Given Documented by: Insulin Glargine (Lantus) 40 unit SQ BID [facility] Last Admin: 10/22/19 21:26 Dose: 40 unit Documented by: Insulin Human Lispro (Humalog) 0 unit SQ [facility]; Protocol Last Admin: 10/23/19 07:21 Dose: Not Given Documented by: Labetalol HCl (Trandate) 0 mg IV Q2HP PRN PRN Reason: Hypertension Lorazepam (Ativan) 0.5 mg IV Q6HP PRN PRN Reason: ANXIETY/SEDATION Last Admin: 10/22/19 08:18 Dose: 0.5 mg Documented by: Melatonin (Melatonin 3mg Tablet) 3 mg PO HSP PRN PRN Reason: Insomnia Ondansetron HCl (Zofran) 4 mg IV Q6HP PRN PRN Reason: Nausea And Vomiting Quetiapine Fumarate (Seroquel) 25 mg PO BID [facility] Last Admin: 10/22/19 20:09 Dose: Not Given Documented by: Senna (Senokot) 2 tab PO HS [facility] Last Admin: 10/22/19 21:08 Dose: Not Given Documented by: Sodium Chloride (Saline Flush) 10 ml IV Q8 [facility] Last Admin: 10/23/19 05:35 Dose: 10 ml Documented by: - ABG Interpretation ABG results: 10/20/19 13:12 ABG Methemoglobin 0.3 L VBG pH 7.30 L VBG pCO2 29.0 L VBG pO2 56 H VBG HCO3 14.0 L VBG Total CO2 14.9 L VBG O2 Saturation 73.5 H VBG Base Excess -11.1 L Medical - PN: A/P - Time Spent With Patient Total time spent is greater than 50% in coordination of care (as documented) at patient's floor/unit and/or counseling patient: - Narrative A/P Narrative: Assessment: *DM type 2 w/DKA: -Patient has not used diabetic medications for days. *Bacteremia (MSSA): -repeat BC + -echo *UTI (GPC): *Encephalopathy (confusion at night): heavy drinker when he was young, but recently per notes and girlfriend rarely -CT brain no acute findings -UDS and BAL neg but test done after several days of being in hospital *Sepsis: 2/2 above -leukocytosis resolved -afebrile last night *lactic acidosis: *Hypernatremia (corrected sodium on admit was hypernatremic): + iatrogenic with initial fluid resuscitation -has been admitted in past for dehydration -still high despite d5w, but insulin gtt is in NS ( thought this was placed in hypotonic solution) *LIZ, resolved: *Cirrhosis w/thrombocytopenia: has had extensive w/u to determine etiology but 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
[2019-10-23] MEDS ORDERED: HYDROCHLOROTHIAZIDE 12.5 MG CAPSULE PO ONE (07:45)
[2019-10-23] MEDS ORDERED: DEXTROSE 5% IN WATER 250 ML IV SCH ×2 (07:45→09:15)
--- NOTE | 2019-10-23 08:26 | Nephrology Consult Note ---
History of Present Illness - Reason for Consult Patient information: Note initiated : 10/23/19 at 8:24 am Patient: Tarun Molina 49 y/o M admitted on 10/20/19 for BLOOD SUGAR PROBLEM. Consult date: 10/23/19 hypernatremia Requesting physician: Austin Kraus - Chief Complaint Confused - History of Present Illness Tarun Molina is a 49-year-old male with diabetes mellitus type 2 and hypertension presented to the ER on 10/20/19 for not feeling well for days. He has not used diabetic medications for days. In the ER, he was found to have hyperglycemia, 662. 3 L normal saline, 10 units of regular insulin, 1 g of ceftriaxone were given. his initial serum sodium was 143. It gradually increased and peaked at 153. he got a total of about 10 L IVF since admission and put out about 5 L urine. Serum sodium still 152 this am despite he received IV D5W. the patient seen in ICU. He is confused and not able to provide history. He is NPO. Review of Systems ROS unobtainable: due to mental status Past History Past medical history: Diabetes mellitus type 2 Hypertension Past family history: Mother had a diabetes and high blood pressure Past social history: Never smoker Medications and Allergies Home Medications Medication Instructions Recorded Confirmed Type Insulin Glargine,Hum.rec.anlog 50 unit SQ BID 10/20/19 10/20/19 History [Lantus Solostar] Insulin Lispro [Humalog] See Protocol SQ QID 10/20/19 10/20/19 History Losartan/Hydrochlorothiazide 100 mg PO DAILY 10/20/19 10/20/19 History [Losartan-Hctz 100-25 mg Tab] Acetaminophen W/Codeine #3 1 tab PO Q4-6HP PRN 10/22/19 10/22/19 History [Tylenol #3] Allergies Allergy/AdvReac Type Severity Reaction Status Date / Time latex Allergy Verified 10/20/19 12:45 Exam - Vital Signs Vital signs: Temp Pulse Resp BP Pulse Ox 96.8 F L 82 20 110/67 96 10/23/19 08:02 10/23/19 08:02 10/23/19 08:02 10/23/19 08:02 10/23/19 08:02 - General Appearance General appearance: appears started age EENT: mucous membranes dry Neck: supple Respiratory: clear Cardiology: no edema Gastrointestinal: no tenderness Integumentary: warm and dry Neurologic: obtunded Musculoskeletal: no deformities Psychiatric: agitated Results - Lab Results 10/23/19 07:55 10/23/19 04:10 Most recent lab results Calcium 8.2 mg/dl (8.6-10.4) L 10/23/19 04:10 Phosphorus 2.7 mg/dL (2.7-4.5) 10/23/19 04:10 Magnesium 2.0 mg/dL (1.6-2.5) 10/23/19 04:10 Assessment and Plan (1) Hypernatremia Tarun Molina is a 49-year-old male with diabetes mellitus type 2 and hypertension presented to the ER on 10/20/19 for not feeling well for days. He has not used diabetic medications for days. In the ER, he was found to have hyperglycemia, 662. 3 L normal saline, 10 units of regular insulin, 1 g of ceftriaxone were given. his initial serum sodium was 143. It gradually increased and peaked at 153. he got a total of about 10 L IVF since admission and put out about 5 L uri ne. Serum sodium still 152 this am despite he received IV D5W. the patient seen in ICU. He is confused and not able to provide history. He is NPO. Hypernatremia, chronic (>48 hours), associated with free water deficit and correction of hyperglycemia. Progress: Serum sodium increased from 152 to 153 in the past 24 hours. He received 2 L D5W in the past 24 hours. Urine output: 1920 ml reported in the past 24 hours. Discussion: The goal of water repletion is 10 mEq/L in 24 hours but to avoid correcting the serum sodium by more than 12 mEq/L in 24 hours. Recommendations: D5W 250 ml IV bolus then 150 ml/hour. Correction of hypokalemia and hyperglycemia without NS if possible. Recheck BMP at 15:00 at about 6 hours. Status: Acute Priority: High
[2019-10-23 08:36] LABS: Hematocrit 33.7 % (41.0-55.0); Hemoglobin 11.1 g/dL (13.5-16.5)
[2019-10-23] MEDS: INSULIN GLARGINE, HUMAN 1 UNIT/0.01 ML SQ SCH ×2 (08:47→21:40)
[2019-10-23] MEDS: HEPARIN 5,000 UNIT/ML VIAL SQ SCH ×2 (09:50→21:20)
[2019-10-23] MEDS: QUEtiapine 25 MG TABLET PO SCH ×2 (10:04→21:19)
[2019-10-23] MEDS: DOCUSATE SODIUM 100 MG CAPSULE PO SCH ×2 (10:05→21:20)
[2019-10-23] MEDS: DEXTROSE 5% IN WATER 1,000 ML IV SCH ×2 (10:25→17:30)
[2019-10-23] MEDS ORDERED: METOPROLOL TARTRATE 5 MG/5 ML VIAL IV ONE (15:20)
[2019-10-23] MEDS ORDERED: INSULIN GLARGINE, HUMAN 1 UNIT/0.01 ML SQ ONE (16:47)
[2019-10-23 17:09] LABS: Blood Urea Nitrogen 15 mg/dl (6-20); Calcium 8.1 mg/dl (8.6-10.4); Carbon Dioxide 23 mmol/L (22-30); Glomerular Filtration Rate 110; Glucose 317 mg/dL (70-105)
[2019-10-23 17:17] LABS: Chloride 103 mmol/L (96-108)
[2019-10-23] MEDS ORDERED: POTASSIUM CHLORIDE 40 MEQ in DEXTROSE 5% IN WATER 500 ML IV ONE (17:25)
[2019-10-23] MEDS ORDERED: POTASSIUM CHLORIDE 20 MEQ TABLET PO ONE (19:36)
[2019-10-23] MEDS: ACETAMINOPHEN 325 MG TABLET PO PRN (21:19)
[2019-10-23] MEDS: SENNOSIDES 1 TABLET PO SCH (21:21)
[2019-10-24] MEDS: INSULIN LISPRO 1 UNIT/0.01 ML UNIT SQ SCH ×10 (00:03→21:36)
[2019-10-24] MEDS: ceFAZolin 1 GM VIAL IV SCH ×3 (05:32→21:37)
[2019-10-24] MEDS: 0.9 % SODIUM CHLORIDE 10 ML SYRINGE IV SCH ×3 (05:32→21:39)
[2019-10-24 06:20] LABS: Hematocrit 32.9 % (41.0-55.0); Hemoglobin 10.9 g/dL (13.5-16.5)
[2019-10-24 06:35] LABS: ALT/SGPT 8 U/l (0-40); AST/SGOT 30 U/l (0-37); Alkaline Phosphatase 98 U/L (39-117); Bilirubin,Direct 0.5 mg/dL (0.0-0.3); Bilirubin,Total 1.3 mg/dL (0.0-1.0); Blood Urea Nitrogen 15 mg/dl (6-20); Calcium 7.6 mg/dl (8.6-10.4); Carbon Dioxide 24 mmol/L (22-30); Chloride 101 mmol/L (96-108); Glomerular Filtration Rate 110; Glucose 110 mg/dL (70-105); Lactate Dehydrogenase 305 U/L (94-250); Triglycerides 80 mg/dl (<150); Uric Acid 4.8 mg/dL (2.5-8.0)
[2019-10-24 06:36] LABS: Albumin 1.8 gm/dL (3.2-5.2); Albumin/Globulin Ratio 0.4 (1.0-2.3); Globulin 4.6 gm/dL (2.2-3.7); Phosphorous 2.2 mg/dL (2.7-4.5)
[2019-10-24] MEDS ORDERED: DEXTROSE 50% 50 ML VIAL IV PRN (07:31)
[2019-10-24] MEDS ORDERED: DEXTROSE 31 GM ORAL.SUSP PO PRN (07:31)
--- NOTE | 2019-10-24 07:35 | Internal Med Progress Note ---
Medical - PN: Subj Patient information: Note initiated : 10/24/19 at 7:26 am Service Date, if different from initiated Date: [] Patient: Tarun Molina a 49 y/o M admitted on 10/20/19 for BLOOD SUGAR PROBLEM. Chief Complaint: [] Interval history: Mr. Molina is a 49 year old M with a history of diabetes type 2, and high blood pressure who was presented to the ER because he does not feel well for days. Patient is tired and lethargic and a poor historian. As per patient and , patient has not been feeling well for 1 month, but his symptoms have been worsening over the past week. Over the past week he has been having nausea, dizziness, back pain, and dysuria. He has not used diabetic medications for days. In the ER, he was found to have hyperglycemia, 662. 3 L normal saline, 10 units of regular insulin, 1 g of ceftriaxone were given. When I saw this patient in the ER, he felt better. But he still had these symptoms mentioned above. Blood glucose 485. 10/21 When I saw this patient this morning, he was sleeping. He was given Ativan for agitation. Patient has tachycardia and tachypnea White blood cells normalized today, 9.3. Platelet went down to 69 from 107 yesterday Anion gap closed, 14.0 Blood culture showed gram-positive cocci 10/22 Patient slept most the day yesterday after given sedatives. Was agitated last night and given Ativan and a one-time dose of Haldol. This morning attempted to get echocardiogram the patient was agitated and pulling at lines, nurse was able to communicate with him to some degree and patient was following some commands but was not cooperative with exam and thus needed some as needed Ativan to undergo the echo. At this time patient is drowsy. Sodium elevated again today. Increase hypotonic solution. And adjust IV riders to hypotonic solution. Follow-up lactate. 10/23 pt became agitated last night was given Vistaril and eventually needed haldol 2 .5mg. drowsy this morning, moans to touch but will not open eyes or verbalize. sodium still high despite d5w. pending repeat lactate. will consult nephro for hypernatremia. unable to gather review of systems given current mental state. was under impression that all IV fluids were adjusted to hypotonic solution, however, the insulin gtt was still running in NS. After adjusting this and tali tional d5w, his sodium returned to normal. 10/24 Slept most the night. No agitation night. Patient currently sitting up in chair. Tolerated liquid diet yesterday. Mentation significantly improved. Patient does still appear drowsy. Has occasional cough denies shortness of breath. Review of Systems: denies headache/fever/chills/nausea/vomiting/chest or abdominal pain/dyspnea/diarrhea. Otherwise see above. - Constitutional Vitals: Vital Signs Temp Pulse Resp BP Pulse Ox 99.4 F H 86 23 H 113/63 96 10/24/19 07:00 10/24/19 07:00 10/24/19 07:00 10/24/19 07:00 10/24/19 07:00 Period Temp Pulse Resp BP Sys/Garcia Pulse Ox Last 24 Hr 96.0 F-100.7 F 74-113 18-96 84-149/49-86 21-100 Intake and Output 10/23/19 10/24/19 10/24/19 21:59 05:59 13:59 Intake Total 3100 Output Total 545 535 Balance 2555 -535 Weight 93.984 kg Intake & Output: Intake & Output 10/23/19 10/24/19 10/24/19 21:59 05:59 13:59 Intake Total 3100 Output Total 545 535 Balance 2555 -535 Weight 93.984 kg Intake: IV 1000 Dextrose 5% in Water 1,000 ml @ 1000 150 mls/hr IV .Q6H40M [facility] Rx#: [id number] Oral 2100 Output: Urine Catheter Amount 545 535 Other: Meal Dinner Percent of Meal Consumed 25% Urine Appearance Clear Sediment Uretheral (Hernandes) Clear Sediment Urine Color Light Bing Light Bing Uretheral (Hernandes) Light Bing Light Bing Exam: General: drowsy but awakens easily, No acute Distress Eyes/N/T: EOMI, Head/Neck: neck supple, CV: RRR, No murmurs, Pulm: Clear b/l, no wheezing/rhonchi/rales Abd: soft, nondistended and nontender, +BS x4 Ext: no clubbing/cyanosis/edema Neuro: sitting in chair, drowsy but opens eyes to verbalization, mentation significantly improved, no focal deficits, moves all extremities spontaneously Skin: warm/dry Medical - PN: Obj Da - Labs CBC & Chem 7: 10/24/19 04:15 10/24/19 04:15 Labs: Abnormal Lab Results 10/24/19 10/24/19 10/23/19 04:15 04:15 15:50 RBC Hgb 10.9 L Hct 32.9 L MCV RDW Plt Count Seg Neutrophils % Lymphocytes % Platelet Estimate Macrocytosis VBG Lactic Acid Sodium Potassium 3.1 L 2.8 L* Chloride BUN Glucose 110 H 317 H Hemoglobin A1c Calcium 7.6 L 8.1 L Phosphorus 2.2 L Total Bilirubin 1.3 H Direct Bilirubin 0.5 H Lactate Dehydrogenase 305 H Albumin 1.8 L Globulin 4.6 H Albumin/Globulin Ratio 0.4 L 10/23/19 10/23/19 10/22/19 07:55 04:10 17:51 RBC Hgb 11.1 L Hct 33.7 L MCV RDW Plt Count Seg Neutrophils % Lymphocytes % Platelet Estimate Macrocytosis VBG Lactic Acid 2.8 H Sodium 152 H Potassium 3.1 L Chloride 117 H BUN Glucose 201 H Hemoglobin A1c Calcium 8.2 L Phosphorus Total Bilirubin 1.1 H Direct Bilirubin 0.5 H Lactate Dehydrogenase Albumin 2.0 L Globulin 4.5 H Albumin/Globulin Ratio 0.4 L 10/22/19 10/22/19 10/22/19 17:51 12:58 12:58 RBC Hgb Hct MCV RDW Plt Count Seg Neutrophils % Lymphocytes % Platelet Estimate Macrocytosis VBG Lactic Acid 2.7 H Sodium 150 H 152 H Potassium 3.2 L Chloride 115 H 118 H BUN Glucose 164 H 129 H Hemoglobin A1c Calcium Phosphorus Total Bilirubin Direct Bilirubin Lactate Dehydrogenase Albumin Globulin Albumin/Globulin Ratio 10/22/19 10/22/19 10/22/19 05:16 05:16 05:16 RBC 3.68 L Hgb 12.1 L Hct 36.8 L MCV 100.2 H RDW 14.7 H Plt Count 63 L Seg Neutrophils % 85 H Lymphocytes % 7 L Platelet Estimate Decreased A Macrocytosis 1+ A VBG Lactic Acid 2.4 H Sodium Potassium Chloride BUN Glucose Hemoglobin A1c 13.0 H Calcium Phosphorus Total Bilirubin Direct Bilirubin Lactate Dehydrogenase Albumin Globulin Albumin/Globulin Ratio 10/22/19 10/21/19 10/21/19 05:16 18:43 18:43 RBC Hgb Hct MCV RDW Plt Count Seg Neutrophils % Lymphocytes % Platelet Estimate Macrocytosis VBG Lactic Acid 2.1 H Sodium 153 H 149 H Potassium Chloride 119 H 116 H BUN 25 H Glucose 210 H 328 H Hemoglobin A1c Calcium Phosphorus 1.5 L Total Bilirubin Direct Bilirubin 0.4 H Lactate Dehydrogenase Albumin 2.1 L Globulin 5.3 H Albumin/Globulin Ratio 0.4 L 10/21/19 10/21/19 10:30 10:30 RBC Hgb Hct MCV RDW Plt Count Seg Neutrophils % Lymphocytes % Platelet Estimate Macrocytosis VBG Lactic Acid Sodium 149 H Potassium Chloride 114 H BUN 29 H Glucose 290 H Hemoglobin A1c Calcium Phosphorus 2.1 L Total Bilirubin Direct Bilirubin Lactate Dehydrogenase Albumin Globulin Albumin/Globulin Ratio Meds: Medications Acetaminophen (Tylenol) 650 mg PO Q4-6HP PRN; Protocol PRN Reason: Per Pain Protocol/Fever > 101 Last Admin: 10/23/19 21:19 Dose: 650 mg Documented by: Cefazolin Sodium (Ancef) 2 gm IV Q8H [facility] Last Admin: 10/24/19 05:32 Dose: 2 gm Documented by: Dextrose (Dextrose 50%) 50 ml IV UD PRN PRN Reason: Hypoglycemia Diagnostic Test (Pha) (Accu-Chek) 1 each FS Q3 [facility] Last Admin: 10/24/19 05:44 Dose: 1 each Documented by: Docusate Sodium (Colace) 100 mg PO BID [facility] Last Admin: 10/23/19 21:20 Dose: 100 mg Documented by: Heparin Sodium (Porcine) (Heparin) 5,000 unit SQ Q12 [facility] Last Admin: 10/23/19 21:20 Dose: 5,000 unit Documented by: Insulin Glargine (Lantus) 50 unit SQ BID [facility] Last Admin: 10/23/19 21:40 Dose: 50 units Documented by: Insulin Human Lispro (Humalog) 0 unit SQ Q3 [facility]; Protocol Last Admin: 10/24/19 05:44 Dose: Not Given Documented by: Labetalol HCl (Trandate) 0 mg IV Q2HP PRN PRN Reason: Hypertension Lorazepam (Ativan) 0.5 mg IV Q6HP PRN PRN Reason: ANXIETY/SEDATION Last Admin: 10/22/19 08:18 Dose: 0.5 mg Documented by: Melatonin (Melatonin 3mg Tablet) 3 mg PO HSP PRN PRN Reason: Insomnia Ondansetron HCl (Zofran) 4 mg IV Q6HP PRN PRN Reason: Nausea And Vomiting Quetiapine Fumarate (Seroquel) 25 mg PO BID [facility] Last Admin: 10/23/19 21:19 Dose: 25 mg Documented by: Constance (Senokot) 2 tab PO HS [facility] Last Admin: 10/23/19 21:21 Dose: 2 tab Documented by: Sodium Chloride (Saline Flush) 10 ml IV Q8 [facility] Last Admin: 10/24/19 05:32 Dose: 10 ml Documented by: - ABG Interpretation ABG results: 10/20/19 13:12 ABG Methemoglobin 0.3 L VBG pH 7.30 L VBG pCO2 29.0 L VBG pO2 56 H VBG HCO3 14.0 L VBG Total CO2 14.9 L VBG O2 Saturation 73.5 H VBG Base Excess -11.1 L Medical - PN: A/P - Time Spent With Patient Total time spent is greater than 50% in coordination of care (as documented) at patient's floor/unit and/or counseling patient: - Narrative A/P Narrative: Assessment: *DM type 2 w/DKA: -Patient has not used diabetic medications for days. *Bacteremia (MSSA): -repeat BC + -echo no vegetations *UTI (MSSA): *Encephalopathy, metabolic (worse at night): heavy drinker when he was young, but recently per notes and girlfriend rarely -CT brain no acute findings -UDS and BAL neg but test done after several days of being in hospital -2/2 sepsis/medications/acute illness/metabolic imbalance -Improved *Sepsis: 2/2 above -leukocytosis resolved -afebrile last night *lactic acidosis: Resolved *Hypernatremia (corrected sodium on admit was hypernatremic): + iatrogenic with initial fluid resuscitation -has been admitted in past for dehydration -Resolved *LIZ: Resolved *Cirrhosis w/thrombocytopenia: has had extensive w/u to determine etiology but likely etoh *HTN: *Hypophos/kalemia: Plan: -Cefazolin -serial BC's -ID following -nephro consult -ARB/HCTZ initially held for LIZ, -replete electrolytes -outpt [facility] -ppx: Heparin (hold if PLT<50k) CODE STATUS: Full
--- NOTE | 2019-10-24 08:07 | Nephrology Progress Note ---
Subjective Patient information: Note initiated : 10/24/19 at 8:03 am Patient: Tarun Molina 49 y/o M admitted on 10/20/19 for BLOOD SUGAR PROBLEM. Chief Complaint: Weakness Pertinent ROS: Weakness Objective - Vital Signs Vital signs: Vital Signs Temp Pulse Resp BP Pulse Ox 10/24/19 07:00 99.4 F H 86 23 H 113/63 96 10/24/19 06:00 99.2 F H 87 19 118/58 92 10/24/19 05:00 98.3 F 86 21 120/62 98 10/24/19 04:00 98.6 F 86 22 104/61 98 10/24/19 03:00 98.5 F 86 22 107/61 97 10/24/19 02:00 98.6 F 79 22 100/62 97 10/24/19 01:00 98.8 F 85 22 98/59 98 10/24/19 00:00 99.2 F H 87 21 91/54 98 10/23/19 23:00 99.6 F H 88 24 H 84/49 96 10/23/19 22:04 99.9 F H 10/23/19 22:01 100.0 F H 97 H 20 90/55 95 10/23/19 21:19 100.3 F H 10/23/19 21:01 100.2 F H 98 H 26 H 121/64 97 10/23/19 20:01 100.3 F H 94 H 24 H 96/52 95 10/23/19 19:01 100.7 F H 98 H 23 H 99/56 95 10/23/19 18:01 100.6 F H 110 H 23 H 131/74 99 10/23/19 17:01 99.9 F H 103 H 23 H 149/81 99 10/23/19 16:01 99.4 F H 98 H 21 118/80 99 10/23/19 15:01 98.8 F 103 H 26 H 124/86 97 10/23/19 14:03 98.6 F 113 H 24 H 99 10/23/19 14:00 98 10/23/19 13:01 97.7 F 111 H 21 117/79 99 10/23/19 12:01 96.4 F L 88 22 123/74 96 10/23/19 11:03 96.0 F L 86 19 124/81 98 10/23/19 10:04 97.1 F 78 19 100 10/23/19 10:01 96.9 F L 77 18 101/59 100 10/23/19 09:00 96.6 F L 74 18 106/60 98 Intake and Output 10/23/19 10/24/19 10/24/19 21:59 05:59 13:59 Intake Total 3100 Output Total 545 535 Balance 2555 -535 Intake: IV 1000 Dextrose 5% in Water 1,000 ml @ 1000 150 mls/hr IV .Q6H40M [facility] Rx#: [id number] Oral 2100 Output: Urine Catheter Amount 545 535 Other: Meal Dinner Percent of Meal Consumed 25% Urine Appearance Clear Sediment Uretheral (Hernandes) Clear Sediment Urine Color Light Bing Light Bing Uretheral (Hernandes) Light Bing Light Bing Weight 207 lb 3.2 oz Intake & Output: Intake & Output 10/23/19 10/24/19 10/24/19 21:59 05:59 13:59 Intake Total 3100 Output Total 545 535 Balance 2555 -535 Weight 207 lb 3.2 oz Intake: IV 1000 Dextrose 5% in Water 1,000 ml @ 1000 150 mls/hr IV .Q6H40M [facility] Rx#: [id number] Oral 2100 Output: Urine Catheter Amount 545 535 Other: Meal Dinner Percent of Meal Consumed 25% Urine Appearance Clear Sediment Uretheral (Hernandes) Clear Sediment Urine Color Light Bing Light Bing Uretheral (Hernandes) Light Bing Light Bing - General Appearance General appearance: fatigue EENT: mucous membranes moist Neck: supple Respiratory: clear Cardiology: no edema Gastrointestinal: no tenderness Integumentary: warm and dry Neurologic: no focal deficit Musculoskeletal: no deformities Psychiatric: cooperative - Lab 10/24/19 04:15 10/24/19 04:15 Most recent lab results Calcium 7.6 mg/dl (8.6-10.4) L 10/24/19 04:15 Phosphorus 2.2 mg/dL (2.7-4.5) L 10/24/19 04:15 Magnesium 1.8 mg/dL (1.6-2.5) 10/24/19 04:15 Assessment and Plan (1) Hypernatremia Tarun Molina is a 49-year-old male with diabetes mellitus type 2 and hypertension presented to the ER on 10/20/19 for not feeling well for days. He has not used diabetic medications for days. In the ER, he was found to have hyperglycemia, 662. 3 L normal saline, 10 units of regular insulin, 1 g of ceftriaxone were given. his initial serum sodium was 143. It gradually increased and peaked at 153. Hypernatremia, chronic (>48 hours), associated with free water deficit and cor rection of hyperglycemia, resolved. Progress: Serum sodium decreased from 153 to 133 in the past 24 hours. He had 2300 ml oral water intake once mental status improved resulting in faster than anticipated resolution. Urine output: 1920 ml reported in the past 24 hours. Recommendations: Nephrology will sign off. Status: Resolved Priority: High
[2019-10-24] MEDS: HEPARIN 5,000 UNIT/ML VIAL SQ SCH ×2 (08:28→20:24)
[2019-10-24] MEDS: INSULIN GLARGINE, HUMAN 1 UNIT/0.01 ML SQ SCH ×2 (08:37→21:37)
[2019-10-24] MEDS: PHOSPHORUS 250 MG TABLET PO SCH ×4 (08:45→21:32)
[2019-10-24] MEDS: DOCUSATE SODIUM 100 MG CAPSULE PO SCH ×2 (08:45→21:36)
[2019-10-24 17:33] LABS: Blood Urea Nitrogen 14 mg/dl (6-20); Calcium 7.6 mg/dl (8.6-10.4); Carbon Dioxide 23 mmol/L (22-30); Chloride 100 mmol/L (96-108); Glomerular Filtration Rate 110; Glucose 200 mg/dL (70-105)
[2019-10-24] MEDS: ACETAMINOPHEN 325 MG TABLET PO PRN ×2 (17:33→21:46)
[2019-10-24] MEDS ORDERED: POTASSIUM CHLORIDE 20 MEQ TABLET PO ONE ×2 (20:41→21:34)
[2019-10-24] MEDS: SENNOSIDES 1 TABLET PO SCH (21:36)
[2019-10-25] MEDS: INSULIN LISPRO 1 UNIT/0.01 ML UNIT SQ SCH ×6 (00:09→21:03)
[2019-10-25] MEDS: ceFAZolin 1 GM VIAL IV SCH ×3 (05:31→22:17)
[2019-10-25] MEDS: 0.9 % SODIUM CHLORIDE 10 ML SYRINGE IV SCH ×3 (05:31→22:18)
[2019-10-25 06:52] LABS: ALT/SGPT 7 U/l (0-40); AST/SGOT 30 U/l (0-37); Alkaline Phosphatase 88 U/L (39-117); Bilirubin,Direct 0.5 mg/dL (0.0-0.3); Bilirubin,Total 1.2 mg/dL (0.0-1.0); Blood Urea Nitrogen 12 mg/dl (6-20); Calcium 7.4 mg/dl (8.6-10.4); Carbon Dioxide 23 mmol/L (22-30); Chloride 103 mmol/L (96-108); Glomerular Filtration Rate 117; Glucose 161 mg/dL (70-105); Lactate Dehydrogenase 227 U/L (94-250); Phosphorous 2.4 mg/dL (2.7-4.5); Triglycerides 89 mg/dl (<150); Uric Acid 3.8 mg/dL (2.5-8.0)
[2019-10-25 06:53] LABS: Albumin 1.6 gm/dL (3.2-5.2); Albumin/Globulin Ratio 0.4 (1.0-2.3); Globulin 4.5 gm/dL (2.2-3.7)
[2019-10-25 06:59] LABS: Basophils # (Auto) 0 K/mcL (0.0-0.3); Basophils % (Auto) 0.2 % (0.0-2.0); Eosinophils # (Auto) 0.1 K/mcL (0.0-0.7); Eosinophils % (Auto) 2.2 % (0.0-7.0); Granulocytes % (Auto) 73.1 % (38.0-78.0); Hemoglobin 11.3 g/dL (13.5-16.5); Lymphocytes # (Auto) 1.2 K/mcL (1.5-4.8); Lymphocytes % (Auto) 17.6 % (15.5-49.0); Mean Corpuscular HGB Conc 33.2 g/dL (31.0-36.0); Mean Platelet Volume 8.8 fL (7.4-10.4); Monocytes # (Auto) 0.5 K/mcL (0.1-0.9); Monocytes % (Auto) 6.9 % (1.0-12.0); Platelet Count 32 K/mcL (140-440); RBC 3.44 M/mcL (4.50-5.90); WBC 6.6 K/mcL (4.5-11.0)
[2019-10-25] MEDS ORDERED: POTASSIUM CHLORIDE 20 MEQ TABLET PO SCH (08:09)
--- NOTE | 2019-10-25 08:10 | Internal Med Progress Note ---
Medical - PN: Subj Patient information: Note initiated : 10/25/19 at 8:06 am Service Date, if different from initiated Date: [] Patient: Tarun Molina a 49 y/o M admitted on 10/20/19 for BLOOD SUGAR PROBLEM. Chief Complaint: [] Interval history: Mr. Molina is a 49 year old M with a history of diabetes type 2, and high blood pressure who was presented to the ER because he does not feel well for days. Patient is tired and lethargic and a poor historian. As per patient and , patient has not been feeling well for 1 month, but his symptoms have been worsening over the past week. Over the past week he has been having nausea, dizziness, back pain, and dysuria. He has not used diabetic medications for days. In the ER, he was found to have hyperglycemia, 662. 3 L normal saline, 10 units of regular insulin, 1 g of ceftriaxone were given. When I saw this patient in the ER, he felt better. But he still had these symptoms mentioned above. Blood glucose 485. 10/21 When I saw this patient this morning, he was sleeping. He was given Ativan for agitation. Patient has tachycardia and tachypnea White blood cells normalized today, 9.3. Platelet went down to 69 from 107 yesterday Anion gap closed, 14.0 Blood culture showed gram-positive cocci 10/22 Patient slept most the day yesterday after given sedatives. Was agitated last night and given Ativan and a one-time dose of Haldol. This morning attempted to get echocardiogram the patient was agitated and pulling at lines, nurse was able to communicate with him to some degree and patient was following some commands but was not cooperative with exam and thus needed some as needed Ativan to undergo the echo. At this time patient is drowsy. Sodium elevated again today. Increase hypotonic solution. And adjust IV riders to hypotonic solution. Follow-up lactate. 10/23 pt became agitated last night was given Vistaril and eventually needed haldol 2 .5mg. drowsy this morning, moans to touch but will not open eyes or verbalize. sodium still high despite d5w. pending repeat lactate. will consult nephro for hypernatremia. unable to gather review of systems given current mental state. was under impression that all IV fluids were adjusted to hypotonic solution, however, the insulin gtt was still running in NS. After adjusting this and tali tional d5w, his sodium returned to normal. 10/24 Slept most the night. No agitation night. Patient currently sitting up in chair. Tolerated liquid diet yesterday. Mentation significantly improved. Patient does still appear drowsy. Has occasional cough denies shortness of breath. 10/25 In chair eating breakfast. Overall feeling better. No overnight events. Review of Systems: denies headache/fever/chills/nausea/vomiting/chest or abdominal pain/dyspnea/diarrhea. Otherwise see above. - Constitutional Vitals: Vital Signs Temp Pulse Resp BP Pulse Ox 98.3 F 84 17 97/60 98 10/25/19 08:01 10/25/19 08:01 10/25/19 08:01 10/25/19 08:01 10/25/19 08:01 Period Temp Pulse Resp BP Sys/Garcia Pulse Ox Last 24 Hr 96.9 F-101.1 F 76-113 13-27 88-135/55-82 93-99 Intake and Output 10/24/19 10/25/19 10/25/19 21:59 05:59 13:59 Intake Total 720 360 Output Total 1278 575 60 Balance -558 -215 -60 Weight 97.885 kg Intake & Output: Intake & Output 10/24/19 10/25/19 10/25/19 21:59 05:59 13:59 Intake Total 720 360 Output Total 1278 575 60 Balance -558 -215 -60 Weight 97.885 kg Intake: Oral 720 360 Output: Urine Catheter Amount 1278 575 60 Other: Meal Dinner Percent of Meal Consumed 50% Feeding Ability Independent Urine Appearance Clear Clear Clear Uretheral (Hernandes) Clear Clear Urine Color Light Bing Dark Yellow Dark Yellow Uretheral (Hernandes) Light Bing Light Bing Urine Odor Normal Normal Exam: General: Awake and alert, No acute Distress Eyes/N/T: EOMI, Head/Neck: neck supple, CV: RRR, No murmurs, Pulm: Clear b/l, no wheezing/rhonchi/rales Abd: soft, nondistended and nontender, +BS x4 Ext: no clubbing/cyanosis/edema Neuro: Awake and alert, mentation significantly improved, no focal deficits, moves all extremities spontaneously Skin: warm/dry Medical - PN: Obj Da - Labs CBC & Chem 7: 10/25/19 04:35 10/25/19 04:35 Labs: Abnormal Lab Results 10/25/19 10/25/19 10/24/19 04:35 04:35 15:05 RBC 3.44 L Hgb 11.3 L Hct 34.0 L Plt Count 32 L* Lymph # (Auto) 1.2 L VBG Lactic Acid Sodium Potassium 3.2 L 3.2 L Chloride Creatinine 0.6 L Glucose 161 H 200 H Hemoglobin A1c Calcium 7.4 L 7.6 L Phosphorus 2.4 L Total Bilirubin 1.2 H Direct Bilirubin 0.5 H GGT 69 H Lactate Dehydrogenase Albumin 1.6 L Globulin 4.5 H Albumin/Globulin Ratio 0.4 L 10/24/19 10/24/19 10/24/19 04:15 04:15 04:15 RBC Hgb 10.9 L Hct 32.9 L Plt Count 36 L* Lymph # (Auto) VBG Lactic Acid Sodium Potassium 3.1 L Chloride Creatinine Glucose 110 H Hemoglobin A1c Calcium 7.6 L Phosphorus 2.2 L Total Bilirubin 1.3 H Direct Bilirubin 0.5 H GGT Lactate Dehydrogenase 305 H Albumin 1.8 L Globulin 4.6 H Albumin/Globulin Ratio 0.4 L 10/23/19 10/23/19 10/23/19 15:50 07:55 04:10 RBC Hgb 11.1 L Hct 33.7 L Plt Count Lymph # (Auto) VBG Lactic Acid Sodium 152 H Potassium 2.8 L* 3.1 L Chloride 117 H Creatinine Glucose 317 H 201 H Hemoglobin A1c Calcium 8.1 L 8.2 L Phosphorus Total Bilirubin 1.1 H Direct Bilirubin 0.5 H GGT Lactate Dehydrogenase Albumin 2.0 L Globulin 4.5 H Albumin/Globulin Ratio 0.4 L 10/22/19 10/22/19 10/22/19 17:51 17:51 12:58 RBC Hgb Hct Plt Count Lymph # (Auto) VBG Lactic Acid 2.8 H 2.7 H Sodium 150 H Potassium 3.2 L Chloride 115 H Creatinine Glucose 164 H Hemoglobin A1c Calcium Phosphorus Total Bilirubin Direct Bilirubin GGT Lactate Dehydrogenase Albumin Globulin Albumin/Globulin Ratio 10/22/19 10/22/19 12:58 05:16 RBC Hgb Hct Plt Count Lymph # (Auto) VBG Lactic Acid Sodium 152 H Potassium Chloride 118 H Creatinine Glucose 129 H Hemoglobin A1c 13.0 H Calcium Phosphorus Total Bilirubin Direct Bilirubin GGT Lactate Dehydrogenase Albumin Globulin Albumin/Globulin Ratio Meds: Medications Acetaminophen (Tylenol) 650 mg PO Q4-6HP PRN; Protocol PRN Reason: Per Pain Protocol/Fever > 101 Last Admin: 10/24/19 21:46 Dose: 650 mg Documented by: Cefazolin Sodium (Ancef) 2 gm IV Q8H [facility] Last Admin: 10/25/19 05:31 Dose: 2 gm Documented by: Dextrose (Dextrose 50%) 50 ml IV UD PRN PRN Reason: Hypoglycemia Dextrose (Dextrose 50%) 0 ml IV UD PRN PRN Reason: Hypoglycemia Diagnostic Test (Pha) (Accu-Chek) 1 each FS [facility] Last Admin: 10/24/19 21:00 Dose: 1 each Documented by: Docusate Sodium (Colace) 100 mg PO BID [facility] Last Admin: 10/24/19 21:36 Dose: 100 mg Documented by: Glucose (Insta-Glucose) 15 gm PO PRN PRN PRN Reason: Hypoglycemia Heparin Sodium (Porcine) (Heparin) 5,000 unit SQ Q12 [facility] Last Admin: 10/24/19 20:24 Dose: Not Given Documented by: Insulin Glargine (Lantus) 50 unit SQ BID [facility] Last Admin: 10/24/19 21:37 Dose: 50 units Documented by: Insulin Human Lispro (Humalog) 0 unit SQ [facility]; Protocol Last Admin: 10/24/19 21:36 Dose: 4 units Documented by: Labetalol HCl (Trandate) 0 mg IV Q2HP PRN PRN Reason: Hypertension Lorazepam (Ativan) 0.5 mg IV Q6HP PRN PRN Reason: ANXIETY/SEDATION Last Admin: 10/22/19 08:18 Dose: 0.5 mg Documented by: Melatonin (Melatonin 3mg Tablet) 3 mg PO HSP PRN PRN Reason: Insomnia Ondansetron HCl (Zofran) 4 mg IV Q6HP PRN PRN Reason: Nausea And Vomiting Pneumococcal Polyvalent Vaccine (Pneumovax 23) 0.5 ml IM .ONCE ONE Stop: 10/26/19 10:01 Senna (Senokot) 2 tab PO [facility] Last Admin: 10/24/19 21:36 Dose: 2 tab Documented by: Sodium Chloride (Saline Flush) 10 ml IV Q8 [facility] Last Admin: 10/25/19 05:31 Dose: 10 ml Documented by: - ABG Interpretation ABG results: 10/20/19 13:12 ABG Methemoglobin 0.3 L VBG pH 7.30 L VBG pCO2 29.0 L VBG pO2 56 H VBG HCO3 14.0 L VBG Total CO2 14.9 L VBG O2 Saturation 73.5 H VBG Base Excess -11.1 L Medical - PN: A/P - Time Spent With Patient Total time spent is greater than 50% in coordination of care (as documented) at patient's floor/unit and/or counseling patient: - Narrative A/P Narrative: Assessment: *DM type 2 w/DKA: resolved -Patient has not used diabetic medications for days. *Bacteremia (MSSA): -10/23 11/04 bottles (+) so far -echo no vegetations *UTI (MSSA): *Encephalopathy, metabolic (worse at night): heavy drinker when he was young, but recently per notes and girlfriend rarely -CT brain no acute findings -UDS and BAL neg but test done after several days of being in hospital -2/2 sepsis/medications/acute illness/metabolic imbalance -Improved *Sepsis: 2/2 above -leukocytosis resolved -afebrile last night *lactic acidosis: Resolved *Hypernatremia (corrected sodium on admit was hypernatremic): + iatrogenic with initial fluid resuscitation -has been admitted in past for dehydration -Resolved *ILZ: Resolved *Cirrhosis w/thrombocytopenia: has had extensive w/u to determine etiology but likely etoh *HTN: *Hypophos/kalemia: improving Plan: -Cefazolin -serial BC's -ID following -ARB/HCTZ initially held for LIZ and low BP -replete electrolytes -outpt [facility] -ppx: Heparin (hold if PLT<50k) CODE STATUS: Full
--- NOTE | 2019-10-25 08:48 | Event Note ---
Pt chart reviewed A: 1. MSSA bacteremia: - unsure of source. Being insulin dependent DM2, it is possible that he might have skin translocation of MSSA during insulin injection or blood sugar testing - pending TTE report - given multiple +ve blood Cx (2/2 sets on 10/20, 10/21 and 10/23 so far), will need [facility] evaluation 2. DKA: AG closed 3. Rt shoulder tenderness: past Hx of rotator cuff tear Recommendations: - Continue IV Cefazolin 2 gm q8 hrs - blood Cx 2 sets, every other day until negative blood Cx for 48 hrs. Once negative, he could get a PICC line placement - will pursue [facility] as Outpatient - consider MRI imaging of both shoulders, C/T/L spine will follow Jaison Colvin MD Infectious diseases
[2019-10-25] MEDS: DOCUSATE SODIUM 100 MG CAPSULE PO SCH ×2 (09:00→21:02)
[2019-10-25] MEDS: HEPARIN 5,000 UNIT/ML VIAL SQ SCH (09:01)
[2019-10-25] MEDS: INSULIN GLARGINE, HUMAN 1 UNIT/0.01 ML SQ SCH (09:01)
[2019-10-25] MEDS ORDERED: LABETALOL 5 MG/ML ML IV PRN (09:11)
[2019-10-25] MEDS ORDERED: DEXTROSE 31 GM ORAL.SUSP PO PRN (09:11)
[2019-10-25] MEDS ORDERED: DEXTROSE 50% 50 ML VIAL IV PRN ×2 (09:11)
[2019-10-25] MEDS ORDERED: LORazepam 2 MG/ML VIAL IV PRN (09:11)
[2019-10-25] MEDS ORDERED: ONDANSETRON 4 MG/2 ML VIAL IV PRN (09:11)
[2019-10-25] MEDS: ACETAMINOPHEN 325 MG TABLET PO PRN ×2 (12:10→21:08)
[2019-10-25] MEDS: POTASSIUM CHLORIDE 20 MEQ TABLET PO SCH (17:46)
[2019-10-25] MEDS ORDERED: INSULIN GLARGINE, HUMAN 1 UNIT/0.01 ML SQ SCH (21:00)
[2019-10-25] MEDS ORDERED: MELATONIN 3 MG TABLET PO PRN (21:00)
[2019-10-25] MEDS ORDERED: HEPARIN 5,000 UNIT/ML VIAL SQ SCH (21:00)
[2019-10-25] MEDS: SENNOSIDES 1 TABLET PO SCH (21:01)
[2019-10-26] MEDS: 0.9 % SODIUM CHLORIDE 10 ML SYRINGE IV SCH ×3 (05:15→22:00)
[2019-10-26] MEDS: ceFAZolin 1 GM VIAL IV SCH ×3 (05:15→21:59)
[2019-10-26 05:48] LABS: Blood Urea Nitrogen 9 mg/dl (6-20); Calcium 7.2 mg/dl (8.6-10.4); Carbon Dioxide 22 mmol/L (22-30); Chloride 98 mmol/L (96-108); Glomerular Filtration Rate 126; Glucose 181 mg/dL (70-105)
[2019-10-26 05:52] LABS: Basophils # (Auto) 0 K/mcL (0.0-0.3); Basophils % (Auto) 0.3 % (0.0-2.0); Eosinophils # (Auto) 0.1 K/mcL (0.0-0.7); Eosinophils % (Auto) 1.3 % (0.0-7.0); Granulocytes % (Auto) 81.1 % (38.0-78.0); Hematocrit 29.4 % (41.0-55.0); Lymphocytes % (Auto) 10.9 % (15.5-49.0); Mean Cell Volume 98.6 fL (80.0-100.0); Mean Corpuscular HGB Conc 34.2 g/dL (31.0-36.0); Mean Platelet Volume 8.2 fL (7.4-10.4); Monocytes # (Auto) 0.6 K/mcL (0.1-0.9); Monocytes % (Auto) 6.4 % (1.0-12.0); Platelet Count 37 K/mcL (140-440); RBC 2.98 M/mcL (4.50-5.90); Red Cell Distribution Width 13.7 % (11.5-14.5); WBC 9.1 K/mcL (4.5-11.0)
--- NOTE | 2019-10-26 07:17 | Internal Med Progress Note ---
Medical - PN: Subj Patient information: Note initiated : 10/26/19 at 7:11 am Service Date, if different from initiated Date: [] Patient: Tarun Molina a 49 y/o M admitted on 10/20/19 for BLOOD SUGAR PROBLEM. Chief Complaint: [] Interval history: Mr. Molina is a 49 year old M with a history of diabetes type 2, and high blood pressure who was presented to the ER because he does not feel well for days. Patient is tired and lethargic and a poor historian. As per patient and , patient has not been feeling well for 1 month, but his symptoms have been worsening over the past week. Over the past week he has been having nausea, dizziness, back pain, and dysuria. He has not used diabetic medications for days. In the ER, he was found to have hyperglycemia, 662. 3 L normal saline, 10 units of regular insulin, 1 g of ceftriaxone were given. When I saw this patient in the ER, he felt better. But he still had these symptoms mentioned above. Blood glucose 485. 10/21 When I saw this patient this morning, he was sleeping. He was given Ativan for agitation. Patient has tachycardia and tachypnea White blood cells normalized today, 9.3. Platelet went down to 69 from 107 yesterday Anion gap closed, 14.0 Blood culture showed gram-positive cocci 10/22 Patient slept most the day yesterday after given sedatives. Was agitated last night and given Ativan and a one-time dose of Haldol. This morning attempted to get echocardiogram the patient was agitated and pulling at lines, nurse was able to communicate with him to some degree and patient was following some commands but was not cooperative with exam and thus needed some as needed Ativan to undergo the echo. At this time patient is drowsy. Sodium elevated again today. Increase hypotonic solution. And adjust IV riders to hypotonic solution. Follow-up lactate. 10/23 pt became agitated last night was given Vistaril and eventually needed haldol 2 .5mg. drowsy this morning, moans to touch but will not open eyes or verbalize. sodium still high despite d5w. pending repeat lactate. will consult nephro for hypernatremia. unable to gather review of systems given current mental state. was under impression that all IV fluids were adjusted to hypotonic solution, however, the insulin gtt was still running in NS. After adjusting this and tali tional d5w, his sodium returned to normal. 10/24 Slept most the night. No agitation night. Patient currently sitting up in chair. Tolerated liquid diet yesterday. Mentation significantly improved. Patient does still appear drowsy. Has occasional cough denies shortness of breath. 10/25 In chair eating breakfast. Overall feeling better. No overnight events. 10/26 Continues to feel better day-to-day. Up eating breakfast. No new complaints. Waiting for negative blood cultures before placing picc and further plans for discharge. Review of Systems: denies headache/fever/chills/nausea/vomiting/chest or abdominal pain/dyspnea/diarrhea. Otherwise see above. - Constitutional Vitals: Vital Signs Temp Pulse Resp BP Pulse Ox 98 F 106 H 16 110/65 100 10/26/19 03:54 10/26/19 03:54 10/26/19 03:54 10/26/19 03:54 10/26/19 03:54 Period Temp Pulse Resp BP Sys/Garcia Pulse Ox Last 24 Hr 98 F-100 F 84-107 16- 92-126/50-87 95-100 Intake and Output 10/25/19 10/26/19 10/26/19 21:59 05:59 13:59 Intake Total 1130 600 Output Total 750 1050 Balance 380 -450 Weight 98.928 kg Intake & Output: Intake & Output 10/25/19 10/26/19 10/26/19 21:59 05:59 13:59 Intake Total 1130 600 Output Total 750 1050 Balance 380 -450 Weight 98.928 kg Intake: Oral 1130 600 Output: Void Amount 750 1050 Other: Meal Dinner Percent of Meal Consumed 100% Urine Appearance Clear Clear Urine Color Dark Yellow Dark Yellow Urine Odor Strong Normal Stool Size Large Stool Color Brown Bright Red Blood Stool Consistency Dry and Hard Exam: General: Awake and alert, No acute Distress Eyes/N/T: EOMI, Head/Neck: neck supple, CV: RRR, 1/6 SM, Pulm: Clear b/l, no wheezing/rhonchi/rales Abd: soft, nondistended and nontender, +BS x4 Ext: no clubbing/cyanosis/edema Neuro: Awake and alert, no focal deficits, moves all extremities spontaneously Skin: warm/dry Medical - PN: Obj Da - Labs CBC & Chem 7: 10/26/19 04:45 10/26/19 04:45 Labs: Abnormal Lab Results 10/26/19 10/26/19 10/25/19 04:45 04:45 04:35 RBC 2.98 L Hgb 10.0 L Hct 29.4 L Plt Count 37 L* Gran % 81.1 H Lymph % (Auto) 10.9 L Lymph # (Auto) 1.0 L Sodium 130 L Potassium 3.2 L Chloride Creatinine 0.5 L 0.6 L Glucose 181 H 161 H Calcium 7.2 L 7.4 L Phosphorus 2.4 L Total Bilirubin 1.2 H Direct Bilirubin 0.5 H GGT 69 H Lactate Dehydrogenase Albumin 1.6 L Globulin 4.5 H Albumin/Globulin Ratio 0.4 L 10/25/19 10/24/19 10/24/19 04:35 15:05 04:15 RBC 3.44 L Hgb 11.3 L Hct 34.0 L Plt Count 32 L* 36 L* Gran % Lymph % (Auto) Lymph # (Auto) 1.2 L Sodium Potassium 3.2 L Chloride Creatinine Glucose 200 H Calcium 7.6 L Phosphorus Total Bilirubin Direct Bilirubin GGT Lactate Dehydrogenase Albumin Globulin Albumin/Globulin Ratio 10/24/19 10/24/19 10/23/19 04:15 04:15 15:50 RBC Hgb 10.9 L Hct 32.9 L Plt Count Gran % Lymph % (Auto) Lymph # (Auto) Sodium Potassium 3.1 L 2.8 L* Chloride Creatinine Glucose 110 H 317 H Calcium 7.6 L 8.1 L Phosphorus 2.2 L Total Bilirubin 1.3 H Direct Bilirubin 0.5 H GGT Lactate Dehydrogenase 305 H Albumin 1.8 L Globulin 4.6 H Albumin/Globulin Ratio 0.4 L 10/23/19 10/23/19 07:55 04:10 RBC Hgb 11.1 L Hct 33.7 L Plt Count Gran % Lymph % (Auto) Lymph # (Auto) Sodium 152 H Potassium Chloride 117 H Creatinine Glucose Calcium Phosphorus Total Bilirubin Direct Bilirubin 0.5 H GGT Lactate Dehydrogenase Albumin Globulin Albumin/Globulin Ratio Meds: Medications Acetaminophen (Tylenol) 650 mg PO Q4-6HP PRN; Protocol PRN Reason: Per Pain Protocol/Fever > 101 Last Admin: 10/25/19 21:08 Dose: 650 mg Documented by: Cefazolin Sodium (Ancef) 2 gm IV Q8H [facility] Last Admin: 10/26/19 05:15 Dose: 2 gm Documented by: Dextrose (Dextrose 50%) 50 ml IV UD PRN PRN Reason: Hypoglycemia Dextrose (Dextrose 50%) 0 ml IV UD PRN PRN Reason: Hypoglycemia Diagnostic Test (Pha) (Accu-Chek) 1 each FS [facility] Last Admin: 10/25/19 21:16 Dose: 1 each Documented by: Docusate Sodium (Colace) 100 mg PO BID [facility] Last Admin: 10/25/19 21:02 Dose: 100 mg Documented by: Glucose (Insta-Glucose) 15 gm PO PRN PRN PRN Reason: Hypoglycemia Heparin Sodium (Porcine) (Heparin) 5,000 unit SQ Q12 [facility] Last Admin: 10/25/19 21:02 Dose: 5,000 unit Documented by: Insulin Glargine (Lantus) 50 unit SQ BID [facility] Last Admin: 10/25/19 21:02 Dose: 50 units Documented by: Insulin Human Lispro (Humalog) 0 unit SQ [facility]; Protocol Last Admin: 10/25/19 21:03 Dose: 8 units Documented by: Labetalol HCl (Trandate) 0 mg IV Q2HP PRN PRN Reason: Hypertension Lorazepam (Ativan) 0.5 mg IV Q6HP PRN PRN Reason: ANXIETY/SEDATION Melatonin (Melatonin 3mg Tablet) 3 mg PO HSP PRN PRN Reason: Insomnia Ondansetron HCl (Zofran) 4 mg IV Q6HP PRN PRN Reason: Nausea And Vomiting Potassium Ch[facility] ([facility]ur) [facility] Stop: 10/27/19 08:08 Last Admin: 10/25/19 17:46 Dose: 40 meq Documented by: Senna (Senokot) 2 tab PO HS [facility] Last Admin: 10/25/19 21:01 Dose: 2 tab Documented by: Sodium Chloride (Saline Flush) 10 ml IV Q8 [facility] Last Admin: 10/26/19 05:15 Dose: 10 ml Documented by: - ABG Interpretation ABG results: 10/20/19 13:12 ABG Methemoglobin 0.3 L VBG pH 7.30 L VBG pCO2 29.0 L VBG pO2 56 H VBG HCO3 14.0 L VBG Total CO2 14.9 L VBG O2 Saturation 73.5 H VBG Base Excess -11.1 L Medical - PN: A/P - Time Spent With Patient Total time spent is greater than 50% in coordination of care (as documented) at patient's floor/unit and/or counseling patient: - Narrative A/P Narrative: Assessment: *DM type 2 w/DKA: resolved -Patient not compliant with home medications, A1c 13 *Bacteremia (MSSA): -10/23 11/04 bottles (+) so far -TTE no vegetations *UTI (MSSA): *Sepsis: 2/2 above -leukocytosis resolved -afebrile last night *Encephalopathy, metabolic: heavy drinker when he was young, but recently per notes and girlfriend rarely. REsolved -CT brain no acute findings -UDS and BAL neg but test done after several days of being in hospital -2/2 sepsis/medications/acute illness/metabolic imbalance *lactic acidosis: Resolved *Hypernatremia (corrected sodium on admit was hypernatremic): + iatrogenic with initial fluid resuscitation -has been admitted in past for dehydration -Resolved *LIZ: Resolved *Cirrhosis w/thrombocytopenia: has had extensive w/u to determine etiology but likely etoh *HTN: *Hypophos/kalemia/natremia: improving Plan: -Cefazolin -serial BC's, PICC once BC neg -ID following -ARB/HCTZ initially held for LIZ and low BP -replete electrolytes -home insulin (increase), SSI -outpt [facility] -ppx: Heparin (hold if PLT<50k)/scd CODE STATUS: Full
[2019-10-26] MEDS: INSULIN LISPRO 1 UNIT/0.01 ML UNIT SQ SCH ×4 (07:41→21:37)
[2019-10-26] MEDS: DOCUSATE SODIUM 100 MG CAPSULE PO SCH ×2 (08:19→19:54)
[2019-10-26] MEDS: POTASSIUM CHLORIDE 20 MEQ TABLET PO SCH ×2 (08:20→16:53)
[2019-10-26] MEDS: SODIUM CHLORIDE 1 GM TABLET PO SCH ×3 (08:20→21:42)
[2019-10-26] MEDS: ACETAMINOPHEN 325 MG TABLET PO PRN ×2 (08:30→19:54)
[2019-10-26] MEDS: INSULIN GLARGINE, HUMAN 1 UNIT/0.01 ML SQ SCH ×2 (08:31→21:37)
[2019-10-26] MEDS ORDERED: PNEUMOCOCCAL 23-VAL P-SAC VAC 0.5 ML SYRINGE IM ONE (10:00)
[2019-10-26] MEDS ORDERED: FLU VACC QS2019-20(6MOS UP)/PF 60 MCG/0.5 ML SYRINGE IM ONE (10:15)
[2019-10-26] MEDS ORDERED: IOPAMIDOL 100 ML BOTTLE IV ONE (11:49)
--- NOTE | 2019-10-26 12:19 | Cat Scan Report ---
History: Right-sided chest wall lump around the scapula, present for a few months TECHNIQUE: The chest was imaged following injection of intravenous nonionic contrast. Sagittal, coronal and axial MIPS images were created. Radiation exposure was limited using dose reduction technology. FINDINGS: There is a small band of scar or discoid atelectasis in the inferior segment lingula. The lungs are otherwise clear normally expanded. There is no pulmonary mass or emphysema. No hilar or mediastinal adenopathy are present. The heart is normal in size and contour. Aorta is normal in caliber and there is no atherosclerotic disease. The scapula is normal without evidence of a bone growth, fracture or malignancy. There is a large homogeneous fluid collection along the posterior lateral aspect of the right chest wall. Is located between the ribs and the overlying latissimus dorsi muscle. It measures 16 cm in length, 14 cm in AP dimension and 2.8 cm in width. It does not appear to be vascular. There is no inflammation or thickening of the overlying muscle and the adjacent ribs are normal. Patient has moderate splenomegaly. There is also evidence of portal hypertension with multiple varices in the upper abdomen and a small amount of ascites. The liver has diffuse fatty diffuse fatty infiltration but there is no obvious evidence of malignancy. Small amount of sludge or tiny calcified stones are present in the gallbladder. IMPRESSION: Large fluid collection in the posterior lateral aspect of the right chest wall. This may be a subacute hematoma, seroma or lymphocele Normal scapula. Minor scarring or discoid atelectasis in the lingula. Portal hypertension with varices and splenomegaly Interpreted and Authenticated by: Manuel Holbrook 10/26/19
--- NOTE | 2019-10-26 14:25 | Infectious Disease Prog Note ---
Subjective Patient information: Note initiated : 10/26/19 at 2:20 pm Service Date, if different from initiated Date: [] Patient: Tarun Molina 49 y/o M admitted on 10/20/19 for BLOOD SUGAR PROBLEM. Chief Complaint: [] Interval history: Pt doing fine. Is awake, alert, answering questions. Reports right shoulder and back pain. Denies any n/v/diarrhea. Discussed plans to do CT and MRI of the shoulder and spine area. Objective Objective Narrative: ao x 3, in nad no thrush chest cta with decreased BS at bases s1 s2 normal, no m/r/g bs ++ nttd right posterior chest wall swelling on inspection, tender to touch, fluctuant, no overlying redness/ulceration/drainage. Size 13 x 7 cm point tenderness over lower cervical and upper thoracic vertebra - Vital Signs Vital signs: Vital Signs Temp Pulse Pulse Resp BP BP Pulse Ox 10/26/19 12:00 37.1 C 101 H 16 117/66 98 10/26/19 08:30 37.0 C 10/26/19 08:00 37.0 C 107 H 16 98/65 98 10/26/19 03:54 36.6 C 106 H 16 110/65 100 10/26/19 01:42 37.0 C 10/25/19 23:32 37.7 C H 107 H 16 92/52 96 10/25/19 20:00 37.1 C 106 H 16 93/50 96 10/25/19 16:00 36.9 C 95 H 18 120/85 95 Intake and Output 10/26/19 10/26/19 10/26/19 05:59 13:59 21:59 Intake Total 600 800 Output Total 1050 800 Balance -450 0 Intake: Oral 600 800 Output: Void Amount 1050 800 Other: Meal Lunch Percent of Meal Consumed 100% Feeding Ability Independent Urine Appearance Clear Urine Color Dark Yellow Urine Odor Normal Intake & Output: Intake & Output 10/26/19 10/26/19 10/26/19 05:59 13:59 21:59 Intake Total 600 800 Output Total 1050 800 Balance -450 0 Intake: Oral 600 800 Output: Void Amount 1050 800 Other: Meal Lunch Percent of Meal Consumed 100% Feeding Ability Independent Urine Appearance Clear Urine Color Dark Yellow Urine Odor Normal - Lab 10/26/19 04:45 10/26/19 04:45 Most recent lab results Calcium 7.2 mg/dl (8.6-10.4) L 10/26/19 04:45 Phosphorus 2.4 mg/dL (2.7-4.5) L 10/25/19 04:35 Magnesium 2.0 mg/dL (1.6-2.5) 10/25/19 04:35 Microbiology 10/20/19 15:43 Blood Blood Culture - Final Staphylococcus aureus 10/23/19 00:42 Blood Blood Culture - Preliminary Staphylococcus aureus 10/21/19 12:23 Blood Blood Culture - Preliminary Staphylococcus aureus 10/20/19 15:48 Blood Blood Culture - Final Staphylococcus aureus 10/23/19 04:10 Blood Blood Culture - Preliminary 10/25/19 04:35 Blood Blood Culture - Preliminary 10/25/19 04:40 Blood Blood Culture - Preliminary 10/21/19 12:38 Blood Blood Culture - Preliminary Staphylococcus aureus 10/20/19 14:26 Urine - Clean Void Mid-Stream Urine Culture - Final Staphylococcus aureus 10/20/19 19:29 Nose MRSA (PCR) - Final Medications Active Medications: Acetaminophen (Tylenol) 650 mg PO Q4-6HP PRN; Protocol PRN Reason: Per Pain Protocol/Fever > 101 Last Admin: 10/26/19 08:30 Dose: 650 mg Documented by: Admin: 10/25/19 21:08 Dose: 650 mg Documented by: Admin: 10/25/19 12:10 Dose: 650 mg Documented by: NOHEMI Cefazolin Sodium (Ancef) 2 gm IV Q8H [facility] Last Admin: 10/26/19 13:54 Dose: 2 gm Documented by: Admin: 10/26/19 05:15 Dose: 2 gm Documented by: Admin: 10/25/19 22:17 Dose: 2 gm Documented by: Admin: 10/25/19 14:49 Dose: 2 gm Documented by: NOHEMI Dextrose (Dextrose 50%) 50 ml IV UD PRN PRN Reason: Hypoglycemia Dextrose (Dextrose 50%) 0 ml IV UD PRN PRN Reason: Hypoglycemia Diagnostic Test (Pha) (Accu-Chek) 1 each FS ACHS [facility] Last Admin: 10/26/19 12:22 Dose: 1 each Documented by: Admin: 10/26/19 07:36 Dose: 1 each Documented by: Admin: 10/25/19 21:16 Dose: 1 each Documented by: Admin: 10/25/19 17:07 Dose: 1 each Documented by: Admin: 10/25/19 11:41 Dose: 1 each Documented by: WILLIAMS Docusate Sodium (Colace) 100 mg PO BID [facility] Last Admin: 10/26/19 08:19 Dose: 100 mg Documented by: Admin: 10/25/19 21:02 Dose: 100 mg Documented by: GOPI Glucose (Insta-Glucose) 15 gm PO PRN PRN PRN Reason: Hypoglycemia Insulin Glargine (Lantus) 55 unit SQ BID [facility] Last Admin: 10/26/19 08:31 Dose: 55 unit Documented by: BILL Insulin Human Lispro (Humalog) 0 unit SQ ACHS [facility]; Protocol Last Admin: 10/26/19 12:22 Dose: 8 units Documented by: Admin: 10/26/19 07:41 Dose: 2 units Documented by: Admin: 10/25/19 21:03 Dose: 8 units Documented by: GOPI Comments: BG = [phone] Admin: 10/25/19 17:12 Dose: 8 units Documented by: Admin: 10/25/19 12:14 Dose: 6 units Documented by: NOHEMI Labetalol HCl (Trandate) 0 mg IV Q2HP PRN PRN Reason: Hypertension Lorazepam (Ativan) 0.5 mg IV Q6HP PRN PRN Reason: ANXIETY/SEDATION Melatonin (Melatonin 3mg Tablet) 3 mg PO HSP PRN PRN Reason: Insomnia Ondansetron HCl (Zofran) 4 mg IV Q6HP PRN PRN Reason: Nausea And Vomiting Potassium Chloride (Kdur) 40 meq PO BIDCC [facility] Stop: 10/27/19 08:08 Last Admin: 10/26/19 08:20 Dose: 40 meq Documented by: Admin: 10/25/19 17:46 Dose: 40 meq Documented by: NOHEMI Senna (Senokot) 2 tab PO HS [facility] Last Admin: 10/25/19 21:01 Dose: 2 tab Documented by: GOPI Sodium Chloride (Saline Flush) 10 ml IV Q8 [facility] Last Admin: 10/26/19 13:57 Dose: 10 ml Documented by: Admin: 10/26/19 05:15 Dose: 10 ml Documented by: Admin: 10/25/19 22:18 Dose: 10 ml Documented by: Admin: 10/25/19 14:50 Dose: 10 ml Documented by: NOHEMI Sodium Chloride (Sodium Chloride) 1 gm PO TID [facility] Stop: 10/26/19 21:01 Last Admin: 10/26/19 08:20 Dose: 1 gm Documented by: BILL Assessment and Plan - Narrative A/P Narrative: A: 1. MSSA bacteremia: possible seeding of right extrapleural soft tissue fluid collection - Being insulin dependent DM2, it is possible that he might have skin translocation of MSSA during insulin injection or blood sugar testing. - neg TTE - given multiple +ve blood Cx (2/2 sets on 10/20, 10/21 and 10/23 so far), will need [facility] evaluation 2. DKA: AG closed 3. Rt lateral chest wall fluid collection: (seen on CT right shoulder as 16 cm in length, 14 cm in AP dimension and 2.8 cm in width, located between the ribs and the overlying right latissimus dorsi muscle) 4. Upper back pain: tenderness on point palpation of cervical and thoracic spine Recommendations: - Continue IV Cefazolin 2 gm q8 hrs - consider surgical or IR guided drainage of the right extrapleural fluid colle ction for complete source control. Send aspirate for gram stain and C/S, cell count - blood Cx 2 sets, every other day until negative blood Cx for 48 hrs. Once negative, he could get a PICC line placement - will pursue [facility] as Outpatient - await MRI imaging of C/T spine to r/o any foci of infection - 2% CHG bathing below neck all over body once daily for 5 days will follow Jaison Colvin MD Infectious diseases
--- NOTE | 2019-10-26 14:52 | General Surgery Consult Note ---
History of Present Illness Patient information: Note initiated : 10/26/19 at 2:50 pm Service Date, if different from initiated Date: [] Patient: Tarun Molina 49 y/o M admitted on 10/20/19 for BLOOD SUGAR PROBLEM. Chief Complaint: [fluid in R chest wall Consult date: 10/26/19 Reason for consult: other (fluid collection in back, DKA, staph bacteremia) Requesting physician: Austin Kraus History of present illness: 49 you IDDM presented here 10/20 with following history: Mr. Molina is a 49 year old M with a history of diabetes type 2, and high blood pressure who was presented to the ER because he does not feel well for days. Patient is tired and lethargic and a poor historian. As per patient and , patient has not been feeling well for 1 month, but his symptoms have been worsening over the past week. Over the past week he has been having nausea, dizziness, back pain, and dysuria. He has not used diabetic medications for days. In the ER, he was found to have hyperglycemia, 662. 3 L normal saline, 10 units of regular insulin, 1 g of ceftriaxone were given. When I saw this patient in the ER, he felt better. But he still had these symptoms mentioned above. Blood glucose 485. 10/21 When I saw this patient this morning, he was sleeping. He was given Ativan for agitation. Patient has tachycardia and tachypnea White blood cells normalized today, 9.3. Platelet went down to 69 from 107 yesterday Anion gap closed, 14.0 Blood culture showed gram-positive cocci 10/22 Patient slept most the day yesterday after given sedatives. Was agitated last night and given Ativan and a one-time dose of Haldol. This morning attempted to get echocardiogram the patient was agitated and pulling at lines, nurse was able to communicate with him to some degree and patient was following some commands but was not cooperative with exam and thus needed some as needed Ativan to undergo the echo. At this time patient is drowsy. Sodium elevated again today. Increase hypotonic solution. And adjust IV riders to hypotonic solution. Follow-up lactate. 10/23 pt became agitated last night was given Vistaril and eventually needed haldol 2.5mg. drowsy this morning, moans to touch but will not open eyes or verbalize. sodium still high despite d5w. pending repeat lactate. will consult nephro for hypernatremia. unable to gather review of systems given current mental state. was under impression that all IV fluids were adjusted to hypotonic solution, however, the insulin gtt was still running in . After adjusting this and additional d5w, his sodium returned to normal. 10/24 Slept most the night. No agitation night. Patient currently sitting up in chair. Tolerated liquid diet yesterday. Mentation significantly improved. Patient does still appear drowsy. Has occasional cough denies shortness of breath. 10/25 In chair eating breakfast. Overall feeling better. No overnight events. 10/26 Continues to feel better day-to-day. Up eating breakfast. No new complaints. Waiting for negative blood cultures before placing picc and further plans for discharge. Found to have broadly sensitive S. Aureus. Noted to have some swelling R axillary region to back and scapula. No real pain - just a fullness. CT scan shows a large ~ 14 x 16 x 2.8cm fluid collection. He was hospitalized last year at [facility] with some type of SSI in groin that required I&D. He does not recall being told he had MRSA. No other history of SSI, foot problems. 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 Review of Systems - Constitutional as per HPI, fatigue, lethargy, malaise, weakness, no anorexia, no chills, no fever(s), no headache(s), no night sweats, no weight gain, no weight loss - EENT Nose, mouth and throat: as per HPI, no lip swelling, no mouth lesions, no neck pain, no nose pain, no odynophagia, no sinus pain, no sinus pressure - Cardiovascular no chest pain, no chest pain at rest, no chest pain with activity, no claudication, no diaphoresis, no dyspnea, no dyspnea on exertion, no edema, no irregular heart rhythm, no leg edema, no leg ulcers, no palpatations, no pedal edema, no slow heart rate, no syncope - Respiratory other (history of asthma), no cough, no dyspnea, no hemoptysis, no dyspnea on exertion - Gastrointestinal other (has a hemorrhoid), no abdominal pain, no change in bowel habits, no change in stool character, no constipation, no diarrhea, no dysphagia, no hematemesis, no hematochezia, no loose stools, no nausea, no odynophagia, no vomiting - Genitourinary no change in urinary stream, no dysuria, no hematuria, no scrotal swelling, no testicular mass, no testicular pain, no urinary frequency, no urinary urgency - Musculoskeletal no arthralgias, no back pain, no joint swelling, no limited range of motion, no neck pain - Integumentary no acne, no changing lesions, no new lesions, no non-healing lesions, no rash, no skin ulcer, no sores - Neurological numbness (toes), sensory deficit, no headache(s), no loss of vision, no paresthesias, no weakness - Endocrine no excessive sweating, no other (no history thyroid or adrenal problemxs) - Hematologic/Lymphatic no easy bleeding, no easy bruising - Allergic/Immunologic no seasonal rhinorrhea, no wheezing Past History Past medical history: reviewed & nothing to add Past surgical history: reviewed & nothing to add Past family history: reviewed & nothing to add Past social history: reviewed & nothing to add Medications and Allergies Home Medications Medication Instructions Recorded Confirmed Type Insulin Glargine,Hum.rec.anlog 52 unit SQ BID 10/20/19 10/23/19 History [Lantus Solostar] Insulin Lispro [Humalog] See Protocol SQ QID 10/20/19 10/23/19 History Losartan/Hydrochlorothiazide 100 mg PO DAILY 10/20/19 10/20/19 History [Losartan-Hctz 100-25 mg Tab] Acetaminophen W/Codeine #3 1 tab PO Q4-6HP PRN 10/22/19 10/22/19 History [Tylenol #3] Allergies Allergy/AdvReac Type Severity Reaction Status Date / Time latex Allergy Unknown Unknown Verified 10/26/19 10:01 Exam Temp Pulse Resp BP Pulse Ox 98.7 F 101 H 16 117/66 98 10/26/19 12:00 10/26/19 12:00 10/26/19 12:00 10/26/19 12:00 10/26/19 12:00 - General physical appearance well developed, well nourished, no distress, no pain, obese - Eyes PERRL, normal ocular movement - ENT normal mucosa, no hearing loss - Head Head exam IM: Present: atraumatic, normal inspection, normocephalic - Neck no masses, no bruits, trachea midline, no lymphadenopathy, no venous distension, other (no thyromegaly) - Cardiovascular Cardiovascular exam IM: Present: normal rate and rhythm - Respiratory normal expansion, normal respiratory effort, clear to percussion, clear to auscultation - Abdomen Abdomen: Present: soft, non tender, bowel sounds. Absent: surgical scars, guarding - Genitourinary Present: normal penis with no external lesions, testicles present, testicles non-tender, other (scrotum with no abnormalities) - Integumentary Present: no rash, no growths, other (fullness & fluctuance inferior to R axilla about nipple area starting mid-axillary line & extending posteriorly to about mid-scapular line and a little more medial. Easily palpable fluctuance over this large area. nontender. no erythema. no crepitus) - Neurologic Present: normal coordination, normal sensation - Musculoskeletal Present: normal posture - Psychiatric Present: oriented to time, oriented to person, oriented to place, speech is normal, memory intact Results - Labs 10/26/19 04:45 10/26/19 04:45 Abnormal lab results 10/26/19 10/26/19 Range/Units 04:45 04:45 RBC 2.98 L (4.50-5.90) M/mcL Hgb 10.0 L (13.5-16.5) g/dL Hct 29.4 L (41.0-55.0) % Plt Count 37 L* (140-440) K/mcL Gran % 81.1 H (38.0-78.0) % Lymph % (Auto) 10.9 L (15.5-49.0) % Lymph # (Auto) 1.0 L (1.5-4.8) K/mcL Sodium 130 L (133-145) mmol/L Creatinine 0.5 L (0.7-1.2) mg/dl Glucose 181 H (70-105) mg/dL Calcium 7.2 L (8.6-10.4) mg/dl Diabetes panel 10/26/19 Range/Units 04:45 Sodium 130 L (133-145) mmol/L Potassium 3.7 (3.3-5.1) mmol/L Chloride 98 (96-108) mmol/L Carbon Dioxide 22 (22-30) mmol/L BUN 9 (6-20) mg/dl Creatinine 0.5 L (0.7-1.2) mg/dl Glucose 181 H (70-105) mg/dL Calcium 7.2 L (8.6-10.4) mg/dl Calcium panel 10/26/19 Range/Units 04:45 Calcium 7.2 L (8.6-10.4) mg/dl Pituitary panel 10/26/19 Range/Units 04:45 Sodium 130 L (133-145) mmol/L Potassium 3.7 (3.3-5.1) mmol/L Chloride 98 (96-108) mmol/L Carbon Dioxide 22 (22-30) mmol/L BUN 9 (6-20) mg/dl Creatinine 0.5 L (0.7-1.2) mg/dl Glucose 181 H (70-105) mg/dL Calcium 7.2 L (8.6-10.4) mg/dl Adrenal panel 10/26/19 Range/Units 04:45 Sodium 130 L (133-145) mmol/L Potassium 3.7 (3.3-5.1) mmol/L Chloride 98 (96-108) mmol/L Carbon Dioxide 22 (22-30) mmol/L BUN 9 (6-20) mg/dl Creatinine 0.5 L (0.7-1.2) mg/dl Glucose 181 H (70-105) mg/dL Calcium 7.2 L (8.6-10.4) mg/dl All other labs normal. - Imaging CT scan - chest: report reviewed, image reviewed Assessment and Plan (1) Chest wall abscess There is no indication with tenderness or erythema that this is an abscess but certainly need to be suspicious that is the case with his bacteremia and presentation. I find no other possible explanations in the rest of his history or exam for a source. It is unclear HOW this may have developed. It certainly needs to be drained - the best approach would be an image guided placement of a LARGE drain - not only to obtain fluid for studies but also to get the fluid out. Hopefully this will get rid of the bulk of the fluid and allow the rest to drain and the antibiotics to deal with this - assuming it is positive for gram stain & cultures & consistent with being the source. Will take the liberty to go ahead & order this and will follow with you in case somehow the percutaneous drainage is not enough. I do NOT find any evidence of concern for necrotizing fasciitis or something that needs emergent I&D and debridement. Status: Acute (2) Insulin dependent diabetes mellitus with complications Status: Acute
[2019-10-26] MEDS: SENNOSIDES 1 TABLET PO SCH (19:56)
[2019-10-27] MEDS: 0.9 % SODIUM CHLORIDE 10 ML SYRINGE IV SCH ×3 (05:11→21:57)
[2019-10-27] MEDS: ceFAZolin 1 GM VIAL IV SCH ×3 (05:12→21:52)
[2019-10-27 06:14] LABS: Blood Urea Nitrogen 8 mg/dl (6-20); Calcium 7.3 mg/dl (8.6-10.4); Carbon Dioxide 23 mmol/L (22-30); Chloride 101 mmol/L (96-108); Glomerular Filtration Rate 126; Glucose 176 mg/dL (70-105)
[2019-10-27] MEDS: ACETAMINOPHEN 325 MG TABLET PO PRN ×3 (06:14→21:17)
[2019-10-27 06:21] LABS: Basophils # (Auto) 0 K/mcL (0.0-0.3); Basophils % (Auto) 0.2 % (0.0-2.0); Eosinophils # (Auto) 0.1 K/mcL (0.0-0.7); Eosinophils % (Auto) 1.5 % (0.0-7.0); Granulocytes % (Auto) 77.3 % (38.0-78.0); Hematocrit 28.5 % (41.0-55.0); Hemoglobin 9.6 g/dL (13.5-16.5); Lymphocytes # (Auto) 0.9 K/mcL (1.5-4.8); Lymphocytes % (Auto) 12.7 % (15.5-49.0); Mean Cell Volume 99.3 fL (80.0-100.0); Mean Corpuscular HGB Conc 33.9 g/dL (31.0-36.0); Mean Platelet Volume 8.4 fL (7.4-10.4); Monocytes # (Auto) 0.6 K/mcL (0.1-0.9); Monocytes % (Auto) 8.3 % (1.0-12.0); Platelet Count 39 K/mcL (140-440); RBC 2.87 M/mcL (4.50-5.90); Red Cell Distribution Width 13.9 % (11.5-14.5); WBC 6.7 K/mcL (4.5-11.0)
--- NOTE | 2019-10-27 07:11 | Internal Med Progress Note ---
Medical - PN: Subj Patient information: Note initiated : 10/27/19 at 7:03 am Service Date, if different from initiated Date: [] Patient: Tarun Molina a 49 y/o M admitted on 10/20/19 for BLOOD SUGAR PROBLEM. Chief Complaint: [] Interval history: Mr. Molina is a 49 year old M with a history of diabetes type 2, and high blood pressure who was presented to the ER because he does not feel well for days. Patient is tired and lethargic and a poor historian. As per patient and , patient has not been feeling well for 1 month, but his symptoms have been worsening over the past week. Over the past week he has been having nausea, dizziness, back pain, and dysuria. He has not used diabetic medications for days. In the ER, he was found to have hyperglycemia, 662. 3 L normal saline, 10 units of regular insulin, 1 g of ceftriaxone were given. When I saw this patient in the ER, he felt better. But he still had these symptoms mentioned above. Blood glucose 485. 10/21 When I saw this patient this morning, he was sleeping. He was given Ativan for agitation. Patient has tachycardia and tachypnea White blood cells normalized today, 9.3. Platelet went down to 69 from 107 yesterday Anion gap closed, 14.0 Blood culture showed gram-positive cocci 10/22 Patient slept most the day yesterday after given sedatives. Was agitated last night and given Ativan and a one-time dose of Haldol. This morning attempted to get echocardiogram the patient was agitated and pulling at lines, nurse was able to communicate with him to some degree and patient was following some commands but was not cooperative with exam and thus needed some as needed Ativan to undergo the echo. At this time patient is drowsy. Sodium elevated again today. Increase hypotonic solution. And adjust IV riders to hypotonic solution. Follow-up lactate. 10/23 pt became agitated last night was given Vistaril and eventually needed haldol 2 .5mg. drowsy this morning, moans to touch but will not open eyes or verbalize. sodium still high despite d5w. pending repeat lactate. will consult nephro for hypernatremia. unable to gather review of systems given current mental state. was under impression that all IV fluids were adjusted to hypotonic solution, however, the insulin gtt was still running in NS. After adjusting this and tali tional d5w, his sodium returned to normal. 10/24 Slept most the night. No agitation night. Patient currently sitting up in chair. Tolerated liquid diet yesterday. Mentation significantly improved. Patient does still appear drowsy. Has occasional cough denies shortness of breath. 10/25 In chair eating breakfast. Overall feeling better. No overnight events. 10/26 Continues to feel better day-to-day. Up eating breakfast. No new complaints. Waiting for negative blood cultures before placing picc and further plans for discharge. 10/27 No overnight events. Occasional cough. No new complaints. Patient unable to cooperate for this final MRI yesterday. Begetting catheter drainage of fluid collection this morning. Review of Systems: denies headache/fever/chills/nausea/vomiting/chest or abdominal pain/dyspnea/diarrhea. Otherwise see above. - Constitutional Vitals: Vital Signs Temp Pulse Resp BP Pulse Ox 98.4 F 97 H 14 96/58 98 10/27/19 03:27 10/27/19 03:27 10/27/19 03:27 10/27/19 03:27 10/27/19 03:27 Period Temp Pulse Resp BP Sys/Garcia Pulse Ox Last 24 Hr 97.7 F-99.8 F 97-109 14-18 96-117/58-68 98-99 Intake and Output 10/26/19 10/27/19 10/27/19 21:59 05:59 13:59 Intake Total 400 Output Total 1050 575 Balance -650 -575 Weight 99.79 kg Intake & Output: Intake & Output 10/26/19 10/27/19 10/27/19 21:59 05:59 13:59 Intake Total 400 Output Total 1050 575 Balance -650 -575 Weight 99.79 kg Intake: Oral 400 Output: Void Amount 1050 575 Other: Urine Appearance Clear Clear Urine Color Dark Yellow Dark Yellow Light Bing Urine Odor Strong Strong # Bowel Movements 1 Exam: General: Awake and alert, No acute Distress Eyes/N/T: EOMI, Head/Neck: neck supple, CV: RRR, 1/6 SM, Pulm: Clear b/l, no wheezing/rhonchi/rales Abd: soft, nondistended and nontender, +BS x4 Ext: no clubbing/cyanosis, 1+ b/l LE edema Neuro: Awake and alert, no focal deficits, moves all extremities spontaneously Back: Right posterior thoracic wall fluid collection Skin: warm/dry Medical - PN: Obj Da - Labs CBC & Chem 7: 10/27/19 04:30 10/27/19 04:30 Labs: Abnormal Lab Results 10/27/19 10/27/19 10/26/19 04:30 04:30 04:45 RBC 2.87 L Hgb 9.6 L Hct 28.5 L Plt Count 39 L* Gran % Lymph % (Auto) 12.7 L Lymph # (Auto) 0.9 L Sodium 131 L 130 L Potassium Anion Gap 7.0 L Creatinine 0.5 L 0.5 L Glucose 176 H 181 H Calcium 7.3 L 7.2 L Phosphorus Total Bilirubin Direct Bilirubin GGT Albumin Globulin Albumin/Globulin Ratio 10/26/19 10/25/19 10/25/19 04:45 04:35 04:35 RBC 2.98 L 3.44 L Hgb 10.0 L 11.3 L Hct 29.4 L 34.0 L Plt Count 37 L* 32 L* Gran % 81.1 H Lymph % (Auto) 10.9 L Lymph # (Auto) 1.0 L 1.2 L Sodium Potassium 3.2 L Anion Gap Creatinine 0.6 L Glucose 161 H Calcium 7.4 L Phosphorus 2.4 L Total Bilirubin 1.2 H Direct Bilirubin 0.5 H GGT 69 H Albumin 1.6 L Globulin 4.5 H Albumin/Globulin Ratio 0.4 L 10/24/19 10/24/19 15:05 04:15 RBC Hgb Hct Plt Count 36 L* Gran % Lymph % (Auto) Lymph # (Auto) Sodium Potassium 3.2 L Anion Gap Creatinine Glucose 200 H Calcium 7.6 L Phosphorus Total Bilirubin Direct Bilirubin GGT Albumin Globulin Albumin/Globulin Ratio Meds: Medications Acetaminophen (Tylenol) 650 mg PO Q4-6HP PRN; Protocol PRN Reason: Per Pain Protocol/Fever > 101 Last Admin: 10/27/19 06:14 Dose: 650 mg Documented by: Cefazolin Sodium (Ancef) 2 gm IV Q8H [facility]ORIA Last Admin: 10/27/19 05:12 Dose: 2 gm Documented by: Dextrose (Dextrose 50%) 50 ml IV UD PRN PRN Reason: Hypoglycemia Dextrose (Dextrose 50%) 0 ml IV UD PRN PRN Reason: Hypoglycemia Diagnostic Test (Pha) (Accu-Chek) 1 each FS [facility] Last Admin: 10/26/19 21:41 Dose: 1 each Documented by: Docusate Sodium (Colace) 100 mg PO BID [facility] Last Admin: 10/26/19 19:54 Dose: 100 mg Documented by: Glucose (Insta-Glucose) 15 gm PO PRN PRN PRN Reason: Hypoglycemia Insulin Glargine (Lantus) 55 unit SQ BID [facility] Last Admin: 10/26/19 21:37 Dose: 55 unit Documented by: Insulin Human Lispro (Humalog) 0 unit SQ [facility]; Protocol Last Admin: 10/26/19 21:37 Dose: 8 units Documented by: Labetalol HCl (Trandate) 0 mg IV Q2HP PRN PRN Reason: Hypertension Lorazepam (Ativan) 0.5 mg IV Q6HP PRN PRN Reason: ANXIETY/SEDATION Melatonin (Melatonin 3mg Tablet) 3 mg PO HSP PRN PRN Reason: Insomnia Ondansetron HCl (Zofran) 4 mg IV Q6HP PRN PRN Reason: Nausea And Vomiting Potassium Chloride (Kdur) 40 meq PO BIDCC [facility] Stop: 10/27/19 08:08 Last Admin: 10/26/19 16:53 Dose: 40 meq Documented by: Constacne (Senokot) 2 tab PO HS [facility] Last Admin: 10/26/19 19:56 Dose: 2 tab Documented by: Sodium Chloride (Saline Flush) 10 ml IV Q8 [facility] Last Admin: 10/27/19 05:11 Dose: 10 ml Documented by: - ABG Interpretation ABG results: 10/20/19 13:12 ABG Methemoglobin 0.3 L VBG pH 7.30 L VBG pCO2 29.0 L VBG pO2 56 H VBG HCO3 14.0 L VBG Total CO2 14.9 L VBG O2 Saturation 73.5 H VBG Base Excess -11.1 L Medical - PN: A/P - Time Spent With Patient Total time spent is greater than 50% in coordination of care (as documented) at patient's floor/unit and/or counseling patient: - Narrative A/P Narrative: Assessment: *DM type 2 w/DKA: resolved -Patient not compliant with home medications, A1c 13 *Bacteremia (MSSA): -10/23 1/4 bottles (+) so far -TTE no vegetations *Right posterior thoracic wall fluid collection, extrapulmonary: *UTI (MSSA): *Sepsis: 2/2 above -leukocytosis resolved -afebrile last night *Encephalopathy, metabolic: heavy drinker when he was young, but recently per notes and girlfriend rarely. REsolved -CT brain no acute findings -UDS and BAL neg but test done after several days of being in hospital -2/2 sepsis/medications/acute illness/metabolic imbalance *lactic acidosis: Resolved *Hypernatremia (corrected sodium on admit was hypernatremic): + iatrogenic with initial fluid resuscitation -has been admitted in past for dehydration -Resolved *LIZ: Resolved *Cirrhosis w/thrombocytopenia: has had extensive w/u to determine etiology but likely etoh *HTN: *Anemia: *Hypophos/kalemia/natremia: improving Plan: -Rads for drainage catheter placement today -Cefazolin -serial BC's, PICC once BC neg -ID following, pt not cooperative for spinal MRI yesterday -ARB/HCTZ initially held for LIZ and low BP -replete electrolytes -home insulin (increase again), SSI -outpt [place] -ppx: Heparin (hold if PLT<50k)/scd CODE STATUS: Full
[2019-10-27] MEDS: INSULIN GLARGINE, HUMAN 1 UNIT/0.01 ML SQ SCH ×2 (08:15→21:19)
[2019-10-27] MEDS: INSULIN LISPRO 1 UNIT/0.01 ML UNIT SQ SCH ×4 (08:15→21:19)
[2019-10-27 09:19] LABS: INR 1.3 (0.9-1.1); Prothrombin Time 16.5 sec (11.9-14.5)
--- NOTE | 2019-10-27 09:29 | Magnetic Resonance Report ---
History: Neck pain right side, bacteremia TECHNIQUE: Multiplanar imaging was performed using multiple pulse sequences. The patient was unable to remain motionless during the exam and there is motion artifact in many of the pulse sequences. FINDINGS: The cervico-occipital junction is normal. The cervical vertebrae and intervertebral discs are normal in height and alignment with no fracture or spondylolisthesis. There is increased fat deposition beneath the superior endplate of the T1 vertebra. The adjacent C7-T1 disc appears normal without evidence of acute or degeneration. The overlying cortex is intact. At C2-3 and a small midline posterior bulge. This is not causing significant spinal canal stenosis. There is a small lateral bulge posterolaterally in the left side at C5-C6. There is mild stenosis left-sided neural foramen at C5-6. The remainder the disc spaces are normal. There is no disc herniation. The spinal cord is normal in size signal and contour. Abnormal signal is present throughout the belly of the husam. The lesion has high signal on the T2 and STIR sequences. It Extends outside the field of view. It measures at least 1.5 cm in length and 1 cm in AP dimension. This might have been present at the time of the recent head CT done on 10/21/19. However, brainstem is difficult to evaluate by CT scan. No infection is seen in the neck. IMPRESSION: Lesion in the husam. This could be an infarct or central pontine myelinolysis. Brain MRI is recommended for further evaluation. The patient will require conscious sedation due to panic attacks while performing the cervical MRI. Midline posterior bulge at C3-4 and small posterior lateral bulge in the left at C5-C6 Fat-containing intramedullary lesion at C1. This could be an atypical intraosseous hemangioma or chronic reactive changes due to arthritis Interpreted and Authenticated by: Manuel Holbrook 10/27/19
--- NOTE | 2019-10-27 09:33 | Magnetic Resonance Report ---
History: Back pain and bacteremia TECHNIQUE: Sagittal T1-T2 and STIR images were obtained. The patient was having a panic attack and refused any additional imaging. No axial images were acquired. There is motion artifact on all the pulse sequences. FINDINGS: This is a limited study. There is no evidence of fracture or osteomyelitis. No discitis is seen. There are is mild disc degeneration with posterior bulges at T5-6, T6-7, T7-8 and T8-9. The largest is at the T8-9 level. There are also small anterior osteophytes in the midthoracic spine. No gross abnormality is seen in the spinal cord. IMPRESSION: Limited exam without evidence of spinal infection Posterior bulging disks at multiple levels in the midthoracic spine Interpreted and Authenticated by: Manuel Holbrook 10/27/19
[2019-10-27] MEDS ORDERED: MIDAZOLAM 2 MG/2 ML VIAL IV ONE (10:51)
[2019-10-27] MEDS ORDERED: fentaNYL 100 MCG/2 ML VIAL IV ONE (10:51)
[2019-10-27] MEDS ORDERED: LORazepam 2 MG/ML VIAL ONE (11:42)
[2019-10-27] MEDS ORDERED: 0.9 % SODIUM CHLORIDE 250 ML IV SCH (12:45)
[2019-10-27] MEDS ORDERED: GADOBENATE DIMEGLUMINE 20 ML/VIAL IV ONE (13:11)
--- NOTE | 2019-10-27 13:39 | Magnetic Resonance Report ---
History: Pontine lesion seen on cervical MRI, history of alcohol use and diabetic TECHNIQUE: Multiplanar imaging was performed using multiple pulse sequences. 20 mL MultiHance contrast was injected and postcontrast T1-weighted views were obtained. FINDINGS: There is a triangular-shaped intramedullary lesion in the belly of the husam. It measures 8 x 17 mm in transverse dimension and approximately 1.8 cm in craniocaudal length. It has no mass effect and it does not enhance with contrast. Has intermediate signal on T1 and increased signal on T2 and STIR. He does have restricted diffusion. The T2 and FLAIR sequences also reveal the presence of several small scattered subcortical white matter lesions in the frontal and parietal lobes. They measure up to 4 mm in size. They do not enhance and have no restricted diffusion. No cortical infarct is present. There is no evidence of a mass or hemorrhage. The postcontrast view show no enhancing lesion. The ventricles and cisterns are normal. IMPRESSION: Large zone of demyelinization in the belly of the husam and small scattered white matter lesions in the frontal and parietal lobes. 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 Most common causes are rapid correction of hyponatremia, alcoholism, liver transplantation and malnutrition. Interpreted and Authenticated by: Manuel Holbrook 10/27/19
[2019-10-27] MEDS: DOCUSATE SODIUM 100 MG CAPSULE PO SCH ×2 (16:14→21:17)
[2019-10-27] MEDS: SODIUM CHLORIDE 1 GM TABLET PO SCH ×2 (16:14→16:55)
[2019-10-27] MEDS: POTASSIUM CHLORIDE 20 MEQ TABLET PO SCH (17:13)
--- NOTE | 2019-10-27 19:48 | Nephrology Progress Note ---
Subjective Patient information: Note initiated : 10/27/19 at 7:45 pm Service Date, if different from initiated Date: [] Patient: Tarun Molina 49 y/o M admitted on 10/20/19 for BLOOD SUGAR PROBLEM. Chief Complaint: [] Principal diagnosis: DKA Interval history: This patient was initially seen on 10/23/[address] Armstrong for help with fluid and electrolyte abnormalities and elevated creatinine in a patient with Type II DM with polyneuropathy on bed bug exterminator insulin therapy. Initial notes from the nephrology consult were as follows: "In the ER, he was found to have hyperglycemia, 662. 3 L normal saline, 10 units of regular insulin, 1 g of ceftriaxone were given. his initial serum sodium was 143. It gradually increased and peaked at 153. he got a total of about 10 L IVF since admission and put out about 5 L urine. Serum sodium still 152 this am despite he received IV D5W. the patient seen in ICU. He is confused and not able to provide history. He is NPO." Furthermore, Dr Armstrong made the following recommendation: "Recommendations: D5W 250 ml IV bolus then 150 ml/hour. Correction of hypokalemia and hyperglycemia without NS if possible. Recheck BMP at 15:00 at about 6 hours." The follow day, it was reported that "hyperglycemia, 662. 3 L normal saline, 10 units of regular insulin, 1 g of ceftriaxone were given. his initial serum sodium was 143. It gradually increased and peaked at 153. Hypernatremia, chronic (>48 hours), associated with free water deficit and correction of hyperglycemia, resolved. Progress: Serum sodium decreased from 153 to 133 in the past 24 hours. He had 2300 ml oral water intake once mental status improved resulting in faster than anticipated resolution. Urine output: 1920 ml reported in the past 24 hours. Recommendations: Nephrology will sign off." Today I was asked to come back and evaluate the electrolyte management in terms of the MRI finding which was read as a mid husam lesion c/w CPM. Pertinent labs (sodium and calculated osmolarity): Laboratory Tests 10/20/19 10/21/19 10/22/19 12:55 02:34 0// Na/Osm 143/336 149/332 153/325 10/23/19 10/26/19 10/27/19 04:10 04:45 04:30 Na/Osm 152/321 130/273 131/275 As shown above, while the sodium increased from 143 to 152 mEq/l, there was virtually no change in the calculated serum osmolarity as there was a concomitant decrease in the serum glucose. In data note shown but present in the chart, the osmolarity dropped from 321 to 301 in ~12 hours and further decline to 277 over the next 12 hours on Oct 23 thru . During this time frame, the patient went from confused, unable to [id number] any comands and requiring restraints from admission, to able to take po clear liquids, follow instruction, participate with PT and no longer requiring restraints by morning of October 23. There was continued improvement in c ognition and ambulation leading to floor transfer by the . This is well documented in nursingg shift reports, PT evaluations and Attending progress notes. This morning an MRI c-spine and T-spine were performed presumably to rule out a source of MSSA bacteremia (epidural abscess). What was noted was an incompletely visulazed pontine lesion which precipitated a brain MRI which did confirm the pontine abnormality (was not seen on CT but this expected as the CT was not a dedicated brainstem imiaging protocol). It is inconceivable that this is a lesion of Acute Central Pontine Myelinolysis for several reasons: 1. Not only was the patient asymptomatic during the time frame of rapid osmo lar shifts (October 23-) but actually was neurologically improving. 2. CPM occurs in the setting of rapidly increasing osmolarity, not the opposite as which occurred here 3. The clinical picture is one of a pre-existing or slowly evolving asmptomatic pontine lesion. 4. Pt recalls prior MRI of something at [facility]. If this was a brain MRI it would be useful to review. Pertinent ROS: No fever, chills rigors or night sweats No decrease in MS, no focal neurologic signs or complaints Improving neurologic ctatus and moror skills since admission Additional PMFSH (Level 3 Only): Prior hospitilization, surgical I&D, wound care with prolonged antibiotics for groin furuncle. Finally healed after many months. No sure of organism but assuming staph species. Objective - Vital Signs Vital signs: Vital Signs Temp Pulse Resp BP Pulse Ox 10/27/19 16:00 36.7 C 93 H 16 98/62 98 10/27/19 07:59 36.4 C 98 H 18 93/63 99 10/27/19 03:27 36.9 C 97 H 14 96/58 98 10/26/19 23:25 36.5 C 107 H 18 105/61 99 10/26/19 20:00 36.8 C 109 H 16 112/68 98 Intake and Output 10/27/19 10/27/19 10/27/19 05:59 13:59 21:59 Intake Total 830 Output Total 575 650 700 Balance -575 650 130 Intake: Oral 830 Output: Void Amount 575 650 700 Other: Meal Dinner Percent of Meal Consumed 100% Feeding Ability Independent Urine Appearance Clear Urine Color Dark Yellow Dark Yellow Light Bing Light Bing Urine Odor Strong Strong Strong Weight 99.79 kg Patient Weight 10/28/19 05:59 Weight 99.79 kg Intake & Output: Intake & Output 10/27/19 10/27/19 10/27/19 05:59 13:59 21:59 Intake Total 830 Output Total 575 650 700 Balance -575 650 130 Weight 99.79 kg Intake: Oral 830 Output: Void Amount 575 650 700 Other: Meal Dinner Percent of Meal Consumed 100% Feeding Ability Independent Urine Appearance Clear Urine Color Dark Yellow Dark Yellow Light Bing Light Bing Urine Odor Strong Strong Strong - General Appearance General appearance: well-developed, appears started age EENT: ATNC, PERRL, mucous membranes moist, hearing intact, vision intact Neck: no JVD, no thyromegaly, no carotid bruit Cardiology: no rub, no gallops, normal S1, normal S2 Gastrointestinal: normoactive bowel sounds, no tenderness, no organomegaly Integumentary: no rash Neurologic: no focal deficit, no asterixis, alert and oriented x3, strength 5/5 Musculoskeletal: no deformities, no erythema, no cyanosis, no clubbing Psychiatric: mood/affect appropriate, cooperative - Lab 10/27/19 16:55 10/27/19 16:55 Most recent lab results Calcium 7.3 mg/dl (8.6-10.4) L 10/27/19 04:30 Phosphorus 2.4 mg/dL (2.7-4.5) L 10/25/19 04:35 Magnesium 2.0 mg/dL (1.6-2.5) 10/25/19 04:35 - Allied health notes Allied health notes reviewed: nursing Assessment and Plan (1) Hypernatremia 1. There is no evidence of too rapid of a raise in serum sodium as he remained hyper-osmolar as the patient received excessive amounts of NS IV as part of the treatment of DKA. There was no change in the hyperosmolar state until the glucose was corrected and then the Na rapidly corrected by clear liquid diet and D5W IV. During this time frame the chart clearly documented improving mental status and neurologic status. These two reasons leads me to believe there is no Acute CPM present. The patient has swung to the mildly hyponatremic status and I would AVOID thiazides and further hypotonic fluids. Simple fluid restriction and time should correct the electrolye abnormalities. Status: Resolved Priority: Medium (2) Pontine lesion 1. See is [facility] has a prior brain MRI 2. Outpatient neuro eval and follow up MRI in 6 months Status: Chronic Priority: Low Comment: Clinically this is chronic and not CPM (3) Thrombocytopenia concurrent with and due to alcoholism Status: Chronic Priority: Medium - Narrative A/P Narrative: 1. Probably baselin e low platelets from EtOH and hyperspemism 2. Infection with increase platelet consumption 3. ? antibiotic effect Trend platelets, if no better may need non-cephalosporin ABx
[2019-10-27] MEDS ORDERED: SODIUM CHLORIDE 1 GM TABLET PO ONE (21:00)
[2019-10-27] MEDS: SENNOSIDES 1 TABLET PO SCH (21:18)
--- NOTE | 2019-10-27 21:34 | Infectious Disease Prog Note ---
Subjective Patient information: Note initiated : 10/27/19 at 9:31 pm Service Date, if different from initiated Date: [] Patient: Tarun Molina 49 y/o M admitted on 10/20/19 for BLOOD SUGAR PROBLEM. Chief Complaint: [] Principal diagnosis: DKA Interval history: Pt is doing fine. Endorses right back pand scapular area pain. Denied any fever, n/v, diarrhea. Shared that he could not and won't be able to get MRI done as he had a bad experience while inside the MRI machine (felt if the world was caving in). He is agreeable to have CT scan. Discussed plans to aspirate the right back fluid collection and scanning his upper back. Objective Objective Narrative: ao x 3, in nad no thrush chest cta s1 s2 normal, no m/r/g bs ++ nttd no weakness of upper and lower extremities point tenderness over lower cervical and upper thoracic vertebra tenderness over right periscapular area - Vital Signs Vital signs: Vital Signs Temp Pulse Resp BP Pulse Ox 10/27/19 16:00 36.7 C 93 H 16 98/62 98 10/27/19 07:59 36.4 C 98 H 18 93/63 99 10/27/19 03:27 36.9 C 97 H 14 96/58 98 10/26/19 23:25 36.5 C 107 H 18 105/61 99 Intake and Output 10/27/19 10/27/19 10/27/19 05:59 13:59 21:59 Intake Total 830 Output Total 575 650 700 Balance -575 -650 130 Intake: Oral 830 Output: Void Amount 575 650 700 Other: Meal Dinner Percent of Meal Consumed 100% Feeding Ability Independent Urine Appearance Clear Urine Color Dark Yellow Dark Yellow Light Bing Light Bing Urine Odor Strong Strong Strong Weight 99.79 kg Patient Weight 10/28/19 05:59 Weight 99.79 kg Intake & Output: Intake & Output 10/27/19 10/27/19 10/27/19 05:59 13:59 21:59 Intake Total 830 Output Total 575 650 700 Balance -575 -650 130 Weight 99.79 kg Intake: Oral 830 Output: Void Amount 575 650 700 Other: Meal Dinner Percent of Meal Consumed 100% Feeding Ability Independent Urine Appearance Clear Urine Color Dark Yellow Dark Yellow Light Bing Light Bing Urine Odor Strong Strong Strong - Lab 10/27/19 16:55 10/27/19 16:55 Most recent lab results Calcium 7.3 mg/dl (8.6-10.4) L 10/27/19 04:30 Phosphorus 2.4 mg/dL (2.7-4.5) L 10/25/19 04:35 Magnesium 2.0 mg/dL (1.6-2.5) 10/25/19 04:35 Microbiology 10/21/19 12:38 Blood Blood Culture - Final Staphylococcus aureus 10/21/19 12:23 Blood Blood Culture - Final Staphylococcus aureus 10/23/19 04:10 Blood Blood Culture - Preliminary 10/25/19 04:35 Blood Blood Culture - Preliminary 10/25/19 04:40 Blood Blood Culture - Preliminary 10/20/19 15:43 Blood Blood Culture - Final Staphylococcus aureus 10/23/19 00:42 Blood Blood Culture - Preliminary Staphylococcus aureus 10/20/19 15:48 Blood Blood Culture - Final Staphylococcus aureus 10/20/19 14:26 Urine - Clean Void Mid-Stream Urine Culture - Final Staphylococcus aureus 10/20/19 19:29 Nose MRSA (PCR) - Final Medications Active Medications: Acetaminophen (Tylenol) 650 mg PO Q4-6HP PRN; Protocol PRN Reason: Per Pain Protocol/Fever > 101 Last Admin: 10/27/19 21:17 Dose: 650 mg Documented by: Admin: 10/27/19 17:07 Dose: 650 mg Documented by: Admin: 10/27/19 06:14 Dose: 650 mg Documented by: Admin: 10/26/19 19:54 Dose: 650 mg Documented by: Admin: 10/26/19 08:30 Dose: 650 mg Documented by: Admin: 10/25/19 21:08 Dose: 650 mg Documented by: Admin: 10/25/19 12:10 Dose: 650 mg Documented by: NOHEMI Cefazolin Sodium (Ancef) 2 gm IV Q8H GLORIA Last Admin: 10/27/19 16:54 Dose: 2 gm Documented by: Admin: 10/27/19 05:12 Dose: 2 gm Documented by: Admin: 10/26/19 21:59 Dose: 2 gm Documented by: Admin: 10/26/19 13:54 Dose: 2 gm Documented by: Admin: 10/26/19 05:15 Dose: 2 gm Documented by: Admin: 10/25/19 22:17 Dose: 2 gm Documented by: Admin: 10/25/19 14:49 Dose: 2 gm Documented by: NOHEMI Dextrose (Dextrose 50%) 50 ml IV UD PRN PRN Reason: Hypoglycemia Dextrose (Dextrose 50%) 0 ml IV UD PRN PRN Reason: Hypoglycemia Diagnostic Test (Pha) (Accu-Chek) 1 each FS ACHS [facility] Admin: 10/27/19 21:26 Dose: 1 each Documented by: Admin: 10/27/19 17:12 Dose: 1 each Documented by: Admin: 10/27/19 17:12 Dose: Not Given Documented by: LULÚ Non-Admin Reason: npo Admin: 10/27/19 08:14 Dose: 1 each Documented by: Admin: 10/26/19 21:41 Dose: 1 each Documented by: Admin: 10/26/19 16:38 Dose: 1 each Documented by: Admin: 10/26/19 12:22 Dose: 1 each Documented by: Admin: 10/26/19 07:36 Dose: 1 each Documented by: Admin: 10/25/19 21:16 Dose: 1 each Documented by: Admin: 10/25/19 17:07 Dose: 1 each Documented by: Admin: 10/25/19 11:41 Dose: 1 each Documented by: [email or web address] Docusate Sodium (Colace) 100 mg PO BID [facility] Admin: 10/27/19 21:17 Dose: 100 mg Documented by: Admin: 10/27/19 16:14 Dose: Not Given Documented by: FERNANDEZ Non-Admin Reason: NPO Admin: 10/26/19 19:54 Dose: 100 mg Documented by: Admin: 10/26/19 08:19 Dose: 100 mg Documented by: Admin: 10/25/19 21:02 Dose: 100 mg Documented by: GOPI Glucose (Insta-Glucose) 15 gm PO PRN PRN PRN Reason: Hypoglycemia Hydromorphone HCl (Dilaudid) 1 mg IV Q4HP PRN; Protocol PRN Reason: Per Pain Protocol Sodium Chloride (Sodium Chloride 0.9%) 250 mls @ 20 mls/hr IV .[id number] GLORIA Stop: 10/28/19 01:14 Last Admin: 10/27/19 16:54 Dose: 20 mls/hr Documented by: LULÚ Insulin Glargine (Lantus) 60 unit SQ BID GLORIA Last Admin: 10/27/19 21:19 Dose: 60 units Documented by: GOPI Comments: BG = 369 Admin: 10/27/19 08:15 Dose: Not Given Documented by: LULÚ Non-Admin Reason: held NPO at this time Insulin Human Lispro (Humalog) 0 unit SQ ACHS GLORIA; Protocol Last Admin: 10/27/19 21:19 Dose: 12 units Documented by: GOPI Comments: BG = 369 Admin: 10/27/19 16:57 Dose: 6 units Documented by: LULÚ Comments: 231 Admin: 10/27/19 16:57 Dose: Not Given Documented by: LULÚ Non-Admin Reason: not given npo Admin: 10/27/19 08:15 Dose: Not Given Documented by: LULÚ Non-Admin Reason: held,NPO at this time Admin: 10/26/19 21:37 Dose: 8 units Documented by: GOPI Comments: BG = 265 Admin: 10/26/19 16:44 Dose: 8 units Documented by: Admin: 10/26/19 12:22 Dose: 8 units Documented by: Admin: 10/26/19 07:41 Dose: 2 units Documented by: Admin: 10/25/19 21:03 Dose: 8 units Documented by: GOPI Comments: BG = 262 Admin: 10/25/19 17:12 Dose: 8 units Documented by: Admin: 10/25/19 12:14 Dose: 6 units Documented by: NOHEMI Labetalol HCl (Trandate) 0 mg IV Q2HP PRN PRN Reason: Hypertension Lorazepam (Ativan) 0.5 mg IV Q6HP PRN PRN Reason: ANXIETY/SEDATION Last Admin: 10/27/19 11:51 Dose: 0.5 mg Documented by: LULÚ Melatonin (Melatonin 3mg Tablet) 3 mg PO HSP PRN PRN Reason: Insomnia Ondansetron HCl (Zofran) 4 mg IV Q6HP PRN PRN Reason: Nausea And Vomiting Senna (Senokot) 2 tab PO HS [facility] Last Admin: 10/27/19 21:18 Dose: 2 tab Documented by: Admin: 10/26/19 19:56 Dose: 2 tab Documented by: Admin: 10/25/19 21:01 Dose: 2 tab Documented by: GOPI Sodium Chloride (Saline Flush) 10 ml IV Q8 [facility] Last Admin: 10/27/19 16:56 Dose: 10 ml Documented by: Admin: 10/27/19 05:11 Dose: 10 ml Documented by: Admin: 10/26/19 22:00 Dose: 10 ml Documented by: Admin: 10/26/19 13:57 Dose: 10 ml Documented by: Admin: 10/26/19 05:15 Dose: 10 ml Documented by: Admin: 10/25/19 22:18 Dose: 10 ml Documented by: Admin: 10/25/19 14:50 Dose: 10 ml Documented by: NOHEMI Assessment and Plan - Narrative A/P Narrative: A: 1. MSSA bacteremia: possible seeding of right extrapleural soft tissue fluid collection - Being insulin dependent DM2, it is possible that he might have skin translocation of MSSA during insulin injection or blood sugar testing. - neg TTE - given multiple +ve blood Cx (2/2 sets on 10/20, 10/21 and 10/23 so far), will need [facility] evaluation 2. DKA: AG closed 3. Rt lateral chest wall fluid collection: (seen on CT right shoulder as 16 cm in length, 14 cm in AP dimension and 2.8 cm in width, located between the ribs and the overlying right latissimus dorsi muscle) - to be drained by IR pending correction of thrombocytopenia to acceptable levels 4. Upper back pain: tenderness on point palpation of cervical and thoracic spine - pt claustrophobic, refusing MRI. will assess on CT scan next week Recommendations: - Continue IV Cefazolin 2 gm q8 hrs - await IR guided drainage of the right extrapleural fluid collection for complete source control. Send aspirate for gram stain and C/S, cell count. will follow up with CT chest next week - consider PICC line placement as blood Cx from 10/25 neg for 48 hrs - will pursue [facility] as Outpatient - CT cervical and thoracic spine next week - 2% CHG bathing below neck all over body once daily for 5 days, day 2 will follow Jaison Colvin MD Infectious diseases
[2019-10-28] MEDS: ceFAZolin 1 GM VIAL IV SCH ×3 (05:58→21:54)
[2019-10-28] MEDS: 0.9 % SODIUM CHLORIDE 10 ML SYRINGE IV SCH ×3 (05:58→21:53)
--- NOTE | 2019-10-28 06:32 | Internal Med Progress Note ---
Medical - PN: Subj Patient information: Note initiated : 10/28/19 at 6:30 am Service Date, if different from initiated Date: [] Patient: Tarun Molina a 49 y/o M admitted on 10/20/19 for BLOOD SUGAR PROBLEM. Chief Complaint: [] Interval history: Mr. Molina is a 49 year old M with a history of diabetes type 2, and high blood pressure who was presented to the ER because he does not feel well for days. Patient is tired and lethargic and a poor historian. As per patient and , patient has not been feeling well for 1 month, but his symptoms have been worsening over the past week. Over the past week he has been having nausea, dizziness, back pain, and dysuria. He has not used diabetic medications for days. In the ER, he was found to have hyperglycemia, 662. 3 L normal saline, 10 units of regular insulin, 1 g of ceftriaxone were given. When I saw this patient in the ER, he felt better. But he still had these symptoms mentioned above. Blood glucose 485. 10/21 When I saw this patient this morning, he was sleeping. He was given Ativan for agitation. Patient has tachycardia and tachypnea White blood cells normalized today, 9.3. Platelet went down to 69 from 107 yesterday Anion gap closed, 14.0 Blood culture showed gram-positive cocci 10/22 Patient slept most the day yesterday after given sedatives. Was agitated last night and given Ativan and a one-time dose of Haldol. This morning attempted to get echocardiogram the patient was agitated and pulling at lines, nurse was able to communicate with him to some degree and patient was following some commands but was not cooperative with exam and thus needed some as needed Ativan to undergo the echo. At this time patient is drowsy. Sodium elevated again today. Increase hypotonic solution. And adjust IV riders to hypotonic solution. Follow-up lactate. 10/23 pt became agitated last night was given Vistaril and eventually needed haldol 2 .5mg. drowsy this morning, moans to touch but will not open eyes or verbalize. sodium still high despite d5w. pending repeat lactate. will consult nephro for hypernatremia. unable to gather review of systems given current mental state. was under impression that all IV fluids were adjusted to hypotonic solution, however, the insulin gtt was still running in NS. After adjusting this and tali tional d5w, his sodium returned to normal. 10/24 Slept most the night. No agitation night. Patient currently sitting up in chair. Tolerated liquid diet yesterday. Mentation significantly improved. Patient does still appear drowsy. Has occasional cough denies shortness of breath. 10/25 In chair eating breakfast. Overall feeling better. No overnight events. 10/26 Continues to feel better day-to-day. Up eating breakfast. No new complaints. Waiting for negative blood cultures before placing picc and further plans for discharge. 10/27 No overnight events. Occasional cough. No new complaints. Patient unable to cooperate for this final MRI yesterday. Begetting catheter drainage of fluid collection this morning. 10/28 Slept well and no overnight events. Complaining of upper right back discomfort where the fluid collection is. Planning for platelets transfusion and then radha funez by radiology with cultures. Review of Systems: denies headache/fever/chills/nausea/vomiting/chest or abdominal pain/dyspnea/diarrhea. Otherwise see above. - Constitutional Vitals: Vital Signs Temp Pulse Resp BP Pulse Ox 98.2 F 85 16 92/57 97 10/28/19 04:00 10/28/19 04:00 10/28/19 04:00 10/28/19 04:00 10/28/19 04:00 Period Temp Pulse Resp BP Sys/Garcia Pulse Ox Last 24 Hr 97.5 F-98.6 F 85-101 16-18 92-101/55-63 97-99 Intake and Output 10/27/19 10/28/19 10/28/19 21:59 05:59 13:59 Intake Total 830 Output Total 700 375 Balance 130 -375 Weight 99.7 kg Intake & Output: Intake & Output 10/27/19 10/28/19 10/28/19 21:59 05:59 13:59 Intake Total 830 Output Total 700 375 Balance 130 -375 Weight 99.7 kg Intake: Oral 830 Output: Void Amount 700 375 Other: Meal Dinner Percent of Meal Consumed 100% Feeding Ability Independent Urine Appearance Clear Urine Color Light Bing Dark Yellow Urine Odor Strong Strong Exam: General: Awake and alert, No acute Distress Eyes/N/T: EOMI, Head/Neck: neck supple, CV: RRR, 11/06 SM, Pulm: Clear b/l, no wheezing/rhonchi/rales Abd: soft, nondistended and nontender, +BS x4 Ext: no clubbing/cyanosis, 1+ b/l LE edema Neuro: Awake and alert, no focal deficits, moves all extremities spontaneously Back: Right posterior thoracic wall fluid collection Skin: warm/dry Medical - PN: Obj Da - Labs CBC & Chem 7: 10/28/19 04:40 10/28/19 04:40 Labs: Abnormal Lab Results 10/27/19 10/27/19 10/27/19 16:55 16:55 08:33 RBC Hgb Hct Plt Count 63 L Gran % Lymph % (Auto) Lymph # (Auto) PT 16.5 H INR 1.3 H Sodium 131 L Potassium Anion Gap Creatinine Glucose Calcium Phosphorus Total Bilirubin Direct Bilirubin GGT Albumin Globulin Albumin/Globulin Ratio 10/27/19 10/27/19 10/26/19 04:30 04:30 04:45 RBC 2.87 L Hgb 9.6 L Hct 28.5 L Plt Count 39 L* Gran % Lymph % (Auto) 12.7 L Lymph # (Auto) 0.9 L PT INR Sodium 131 L 130 L Potassium Anion Gap 7.0 L Creatinine 0.5 L 0.5 L Glucose 176 H 181 H Calcium 7.3 L 7.2 L Phosphorus Total Bilirubin Direct Bilirubin GGT Albumin Globulin Albumin/Globulin Ratio 10/26/19 10/25/19 10/25/19 04:45 04:35 04:35 RBC 2.98 L 3.44 L Hgb 10.0 L 11.3 L Hct 29.4 L 34.0 L Plt Count 37 L* 32 L* Gran % 81.1 H Lymph % (Auto) 10.9 L Lymph # (Auto) 1.0 L 1.2 L PT INR Sodium Potassium 3.2 L Anion Gap Creatinine 0.6 L Glucose 161 H Calcium 7.4 L Phosphorus 2.4 L Total Bilirubin 1.2 H Direct Bilirubin 0.5 H GGT 69 H Albumin 1.6 L Globulin 4.5 H Albumin/Globulin Ratio 0.4 L Meds: Medications Acetaminophen (Tylenol) 650 mg PO Q4-6HP PRN; Protocol PRN Reason: Per Pain Protocol/Fever > 101 Last Admin: 10/27/19 21:17 Dose: 650 mg Documented by: Cefazolin Sodium (Ancef) 2 gm IV Q8H [facility] Last Admin: 10/28/19 05:58 Dose: 2 gm Documented by: Dextrose (Dextrose 50%) 50 ml IV UD PRN PRN Reason: Hypoglycemia Dextrose (Dextrose 50%) 0 ml IV UD PRN PRN Reason: Hypoglycemia Diagnostic Test (Pha) (Accu-Chek) 1 each FS [facility] Last Admin: 10/27/19 21:26 Dose: 1 each Documented by: Docusate Sodium (Colace) 100 mg PO BID [facility] Last Admin: 10/27/19 21:17 Dose: 100 mg Documented by: Glucose (Insta-Glucose) 15 gm PO PRN PRN PRN Reason: Hypoglycemia Hydromorphone HCl (Dilaudid) 1 mg IV Q4HP PRN; Protocol PRN Reason: Per Pain Protocol Insulin Glargine (Lantus) 60 unit SQ BID [facility] Last Admin: 10/27/19 21:19 Dose: 60 units Documented by: Insulin Human Lispro (Humalog) 0 unit SQ [facility]; Protocol Last Admin: 10/27/19 21:19 Dose: 12 units Documented by: Labetalol HCl (Trandate) 0 mg IV Q2HP PRN PRN Reason: Hypertension Lorazepam (Ativan) 0.5 mg IV Q6HP PRN PRN Reason: ANXIETY/SEDATION Last Admin: 10/27/19 11:51 Dose: 0.5 mg Documented by: Melatonin (Melatonin 3mg Tablet) 3 mg PO HSP PRN PRN Reason: Insomnia Ondansetron HCl (Zofran) 4 mg IV Q6HP PRN PRN Reason: Nausea And Vomiting Senna (Senokot) 2 tab PO HS [facility] Last Admin: 10/27/19 21:18 Dose: 2 tab Documented by: Sodium Chloride (Saline Flush) 10 ml IV Q8 [facility] Last Admin: 10/28/19 05:58 Dose: 10 ml Documented by: - ABG Interpretation ABG results: 10/20/19 13:12 ABG Methemoglobin 0.3 L VBG pH 7.30 L VBG pCO2 29.0 L VBG pO2 56 H VBG HCO3 14.0 L VBG Total CO2 14.9 L VBG O2 Saturation 73.5 H VBG Base Excess -11.1 L Medical - PN: A/P - Time Spent With Patient Total time spent is greater than 50% in coordination of care (as documented) at patient's floor/unit and/or counseling patient: - Narrative A/P Narrative: Assessment: *DM type 2 w/DKA: resolved -Patient not compliant with home medications, A1c 13 *Bacteremia (MSSA): -TTE no vegetations *Right posterior thoracic wall fluid collection, extrapulmonary: *UTI (MSSA): *Sepsis: 2/2 above. RESOLVED *Encephalopathy, metabolic: heavy drinker when he was young, but recently per notes and girlfriend rarely. RESOLVED -CT brain no acute findings -UDS and BAL neg but test done after several days of being in hospital -2/2 sepsis/medications/acute illness/metabolic imbalance *lactic acidosis: Resolved *Hypernatremia (corrected sodium on admit was hypernatremic): + iatrogenic with initial fluid resuscitation -has been admitted in past for dehydration -Resolved *LIZ: Resolved *Cirrhosis w/thrombocytopenia: has had extensive w/u to determine etiology but likely etoh *HTN: *Anemia: *Hypophos/kalemia/natremia: improving Plan: -Rads for drainage catheter placement today -Cefazolin -serial BC's, PICC once BC neg -ARB/HCTZ initially held for LIZ and low BP -replete electrolytes -home insulin (increased again), SSI -outpt [facility] -ppx: Heparin (hold if PLT<50k)/scd CODE STATUS: Full
[2019-10-28 06:39] LABS: Basophils # (Auto) 0 K/mcL (0.0-0.3); Basophils % (Auto) 0.4 % (0.0-2.0); Eosinophils # (Auto) 0.1 K/mcL (0.0-0.7); Eosinophils % (Auto) 1.9 % (0.0-7.0); Granulocytes % (Auto) 70.4 % (38.0-78.0); Hematocrit 26.9 % (41.0-55.0); Lymphocytes % (Auto) 17.1 % (15.5-49.0); Mean Cell Volume 99.8 fL (80.0-100.0); Mean Corpuscular HGB Conc 33.6 g/dL (31.0-36.0); Mean Platelet Volume 8.6 fL (7.4-10.4); Monocytes # (Auto) 0.6 K/mcL (0.1-0.9); Monocytes % (Auto) 10.2 % (1.0-12.0); Platelet Count 46 K/mcL (140-440); Red Cell Distribution Width 13.9 % (11.5-14.5); WBC 5.7 K/mcL (4.5-11.0)
[2019-10-28 06:45] LABS: Blood Urea Nitrogen 6 mg/dl (6-20); Calcium 7.3 mg/dl (8.6-10.4); Carbon Dioxide 22 mmol/L (22-30); Chloride 105 mmol/L (96-108); Glomerular Filtration Rate 126; Glucose 192 mg/dL (70-105)
[2019-10-28 06:46] LABS: Albumin 1.7 gm/dL (3.2-5.2); Bilirubin,Direct 0.5 mg/dL (0.0-0.3); Bilirubin,Total 0.8 mg/dL (0.0-1.0); Globulin 4.2 gm/dL (2.2-3.7); Phosphorous 2.1 mg/dL (2.7-4.5)
[2019-10-28] MEDS ORDERED: 0.9 % SODIUM CHLORIDE 250 ML IV SCH (07:00)
[2019-10-28] MEDS: DOCUSATE SODIUM 100 MG CAPSULE PO SCH ×2 (07:32→20:46)
[2019-10-28] MEDS: INSULIN LISPRO 1 UNIT/0.01 ML UNIT SQ SCH ×4 (07:34→20:43)
[2019-10-28] MEDS: INSULIN GLARGINE, HUMAN 1 UNIT/0.01 ML SQ SCH ×2 (07:37→20:43)
[2019-10-28] MEDS: ACETAMINOPHEN 325 MG TABLET PO PRN ×3 (08:17→20:44)
[2019-10-28 09:26] LABS: INR 1.3 (0.9-1.1); Prothrombin Time 15.8 sec (11.9-14.5)
--- NOTE | 2019-10-28 12:41 | Ultrasound Report ---
History: Abnormal fluid collection in the right lateral chest wall with associated pain and tenderness TECHNIQUE: The procedure risks were explained the patient consented. A moderate size fluid collection was present adjacent to the ribs laterally in the right upper thorax near the level of the scapula. The overlying skin was prepped with ChloraPrep and then anesthetized with 1% lidocaine. Using ultrasound guidance a Yueh needle was inserted into the fluid collection. 70 cc of creamy brown pus was aspirated. All of the visualized fluid was drained. He tolerated the procedure well without complication. Patient has very low platelet count. It was decided not to leave an indwelling catheter. There was no bleeding occurring during or following the procedure. IMPRESSION: Successful aspiration of 70 cc of pus from the right upper chest wall Interpreted and Authenticated by: Manuel Holbrook 10/28/19
--- NOTE | 2019-10-28 15:11 | Nephrology Progress Note ---
Subjective Patient information: Note initiated : 10/28/19 at 3:08 pm Service Date, if different from initiated Date: [] Patient: Tarun Molina 49 y/o M admitted on 10/20/19 for BLOOD SUGAR PROBLEM. Chief Complaint: [] Principal diagnosis: DKA Interval history: Continued improvement Tolerated drainage of right subscapular fluid collection Electrolytes are improved Diet and activity improving Pertinent ROS: Nothing new Continued right back pain in area of fluid collection Additional PMFSH (Level 3 Only): Prior groin abscess at [facility] was multibacteria the Strep Agal and MSSA treated with IV ABx, debridement and wound care Objective - Vital Signs Vital signs: Vital Signs Temp Pulse Pulse Resp BP BP Pulse Ox 10/28/19 12:06 36.4 C 20 110/72 99 10/28/19 08:12 36.7 C 75 20 123/80 95 10/28/19 08:00 75 10/28/19 07:15 37.1 C 20 107/65 97 10/28/19 04:00 36.8 C 85 16 92/57 97 10/28/19 00:00 37.0 C 100 H 18 101/55 98 10/27/19 20:00 36.9 C 101 H 16 101/59 97 10/27/19 16:00 36.7 C 93 H 16 98/62 98 Intake and Output 10/28/19 10/28/19 10/28/19 05:59 13:59 21:59 Output Total 375 350 Balance -375 -350 Output: Void Amount 375 350 Other: Urine Appearance Clear Urine Color Dark Yellow Urine Odor Strong # Voids 1 Intake & Output: Intake & Output 10/28/19 10/28/19 10/28/19 05:59 13:59 21:59 Output Total 375 350 Balance -375 -350 Output: Void Amount 375 350 Other: Urine Appearance Clear Urine Color Dark Yellow Urine Odor Strong # Voids 1 - General Appearance General appearance: chronically ill EENT: ATNC, PERRL, mucous membranes moist Neck: no JVD, no thyromegaly, no carotid bruit Respiratory: no kyphosis Cardiology: no murmurs Gastrointestinal: normoactive bowel sounds, no tenderness, no guarding Integumentary: no rash, warm and dry Neurologic: no focal deficit, no asterixis, alert and oriented x3, CN 3-12 intact Musculoskeletal: no deformities, no erythema, no clubbing Psychiatric: mood/affect appropriate, cooperative - Lab 10/28/19 09:50 10/28/19 04:40 Most recent lab results Calcium 7.3 mg/dl (8.6-10.4) L 10/28/19 04:40 Phosphorus 2.1 mg/dL (2.7-4.5) L 10/28/19 04:40 Magnesium 1.9 mg/dL (1.6-2.5) 10/28/19 04:40 - Allied health notes Allied health notes reviewed: nursing Assessment and Plan (1) Hypernatremia 1. There is no evidence of too rapid of a raise in serum sodium as he remained hyper-osmolar as the patient received excessive amounts of NS IV as part of the treatment of DKA. There was no change in the hyperosmolar state until the glucose was corrected and then the Na rapidly corrected by clear liquid diet and D5W IV. During this time frame the chart clearly documented improving mental status and neurologic status. These two reasons leads me to believe there is no Acute CPM present. The patient had swung to the mildly hyponatremic status and I would AVOID thiazides and further hypotonic fluids. Simple fluid restriction and time should correct the electrolye abnormalities. Left to his own devices, he has corrected the fluid, electrolyte and osmolar abnormalities as outlined in my prior note. Status: Resolved Priority: Medium (2) Pontine lesion 1. See is [facility] has a prior brain MRI - nope, it was pelvic MRI at time of abscess 2. Outpatient neuro eval and follow up MRI in 6 months 3. I see no clinical relationship with the electrolyte and osmotic changes of thru . Status: Chronic Priority: Low Comment: Clinically this is chronic and not CPM (3) Thrombocytopenia concurrent with and due to alcoholism Stable or improved Avoid NSAIDs and ASA If worsens I would wonder about antibiotic related HYPERSLENISM is likely cause Status: Chronic Priority: Medium - Narrative A/P Narrative: Will sigh off for now. Please feel free to call back with any questions you may have. If needed, Dr crespo or myself are available for follow-up nephrology care.
[2019-10-28] MEDS: SENNOSIDES 1 TABLET PO SCH (20:46)
[2019-10-29] MEDS: ACETAMINOPHEN 325 MG TABLET PO PRN ×2 (04:11→16:10)
[2019-10-29 05:30] LABS: Basophils # (Auto) 0 K/mcL (0.0-0.3); Basophils % (Auto) 0.2 % (0.0-2.0); Eosinophils # (Auto) 0.1 K/mcL (0.0-0.7); Eosinophils % (Auto) 1.4 % (0.0-7.0); Granulocytes % (Auto) 75.1 % (38.0-78.0); Hematocrit 28.1 % (41.0-55.0); Hemoglobin 9.5 g/dL (13.5-16.5); Lymphocytes # (Auto) 0.9 K/mcL (1.5-4.8); Lymphocytes % (Auto) 16.2 % (15.5-49.0); Mean Cell Volume 99.4 fL (80.0-100.0); Mean Corpuscular HGB Conc 33.9 g/dL (31.0-36.0); Mean Platelet Volume 8.7 fL (7.4-10.4); Monocytes # (Auto) 0.4 K/mcL (0.1-0.9); Monocytes % (Auto) 7.1 % (1.0-12.0); Platelet Count 59 K/mcL (140-440); RBC 2.83 M/mcL (4.50-5.90); Red Cell Distribution Width 14.2 % (11.5-14.5); WBC 5.7 K/mcL (4.5-11.0)
[2019-10-29 06:00] LABS: Blood Urea Nitrogen 5 mg/dl (6-20); Calcium 7.3 mg/dl (8.6-10.4); Carbon Dioxide 23 mmol/L (22-30); Chloride 99 mmol/L (96-108); Glomerular Filtration Rate 126; Glucose 352 mg/dL (70-105)
[2019-10-29] MEDS: 0.9 % SODIUM CHLORIDE 10 ML SYRINGE IV SCH ×3 (06:05→22:20)
[2019-10-29] MEDS: ceFAZolin 1 GM VIAL IV SCH ×3 (06:05→22:19)
[2019-10-29] MEDS: INSULIN LISPRO 1 UNIT/0.01 ML UNIT SQ SCH ×4 (07:09→21:07)
[2019-10-29] MEDS: DOCUSATE SODIUM 100 MG CAPSULE PO SCH ×2 (08:07→21:07)
[2019-10-29] MEDS: INSULIN GLARGINE, HUMAN 1 UNIT/0.01 ML SQ SCH ×2 (08:07→21:07)
--- NOTE | 2019-10-29 15:37 | Internal Med Progress Note ---
Medical - PN: Subj Patient information: Note initiated : 10/29/19 at 3:33 pm Service Date, if different from initiated Date: [] Patient: Tarun Molina a 49 y/o M admitted on 10/20/19 for BLOOD SUGAR PROBLEM. Chief Complaint: f/u MSSA sepsis Interval history: 10/20 Mr. Molina is a 49 year old M with a history of diabetes type 2, and high blood pressure who was presented to the ER because he does not feel well for days. Patient is tired and lethargic and a poor historian. As per patient and , patient has not been feeling well for 1 month, but his symptoms have been worsening over the past week. Over the past week he has been having nausea, dizziness, back pain, and dysuria. He has not used diabetic medications for days. In the ER, he was found to have hyperglycemia, 662. 3 L normal saline, 10 units of regular insulin, 1 g of ceftriaxone were given. When I saw this patient in the ER, he felt better. But he still had these symptoms mentioned above. Blood glucose 485. 10/21 When I saw this patient this morning, he was sleeping. He was given Ativan for agitation. Patient has tachycardia and tachypnea White blood cells normalized today, 9.3. Platelet went down to 69 from 107 yesterday Anion gap closed, 14.0 Blood culture showed gram-positive cocci 10/22 Patient slept most the day yesterday after given sedatives. Was agitated last night and given Ativan and a one-time dose of Haldol. This morning attempted to get echocardiogram the patient was agitated and pulling at lines, nurse was ab le to communicate with him to some degree and patient was following some commands but was not cooperative with exam and thus needed some as needed Ativan to undergo the echo. At this time patient is drowsy. Sodium elevated again today. Increase hypotonic solution. And adjust IV riders to hypotonic solution. Follow-up lactate. 10/23 pt became agitated last night was given Vistaril and eventually needed haldol 2.5mg. drowsy this morning, moans to touch but will not open eyes or verbalize. sodium still high despite d5w. pending repeat lactate. will consult nephro for hypernatremia. unable to gather review of systems given current mental state. was under impression that all IV fluids were adjusted to hypotonic solution, however, the insulin gtt was still running in NS. After adjusting this and additional d5w, his sodium returned to normal. 10/24 Slept most the night. No agitation night. Patient currently sitting up in chair. Tolerated liquid diet yesterday. Mentation significantly improved. Patient does still appear drowsy. Has occasional cough denies shortness of josh ath. 10/25 In chair eating breakfast. Overall feeling better. No overnight events. 10/26 Continues to feel better day-to-day. Up eating breakfast. No new complaints. Waiting for negative blood cultures before placing PICC and further plans for discharge. 10/27 No overnight events. Occasional cough. No new complaints. Patient unable to cooperate for this final MRI yesterday. Begetting catheter drainage of fluid collection this morning. 10/28 Slept well and no overnight events. Complaining of upper right back discomfort where the fluid collection is. Planning for platelets transfusion and then drainage by radiology with cultures. 10/29 Pain improved after drainage of abscess yesterday, 70 mL of purulent material drained. Culture is growing MSSA as well. Discussed with ID yesterday, will reimage to ensure no reaccumulation, as no drainage catheter left in place. - Constitutional Vitals: Vital Signs Temp Pulse Resp BP Pulse Ox 99.6 F H 97 H 20 107/61 99 10/29/19 12:00 10/29/19 04:10 10/29/19 12:00 10/29/19 12:00 10/29/19 12:00 Period Temp Pulse Resp BP Sys/Garcia Pulse Ox Last 24 Hr 98.0 F-99.6 F 97-110 16-20 93-112/55-74 97-100 Intake and Output 10/29/19 10/29/19 10/29/19 05:59 13:59 21:59 Intake Total 1909 Output Total 900 450 Balance 1010 -450 Intake & Output: Intake & Output 10/29/19 10/29/19 10/29/19 05:59 13:59 21:59 Intake Total 1909 Output Total 900 450 Balance 1010 -450 Intake: Oral 1909 Output: Void Amount 900 450 Other: Stool Size Large # Voids 2 # Bowel Movements 1 Exam: General: Sitting up on the bed no acute distress Chest: Clear to auscultation bilaterally, no rales Cardiovascular: Regular rate and rhythm, no murmur appreciated Abdomen: Soft, nontender Musculoskeletal: Bandage from drainage on right chest in the posterior axillary line. Mild tenderness to palpation superior to this without overlying erythema. No tenderness with percussion to the thoracic or cervical vertebrae. Neuro: Alert, oriented x3, ambulating independently. Medical - PN: Obj Da - Labs CBC & Chem 7: 10/29/19 04:20 10/29/19 04:20 Labs: Abnormal Lab Results 10/29/19 10/29/19 10/28/19 04:20 04:20 09:50 RBC 2.83 L Hgb 9.5 L Hct 28.1 L Plt Count 59 L 61 L Lymph % (Auto) Lymph # (Auto) 0.9 L PT INR Sodium 129 L Anion Gap 7.0 L BUN 5 L Creatinine 0.5 L Glucose 352 H Calcium 7.3 L Phosphorus Direct Bilirubin Alkaline Phosphatase Albumin Globulin 10/28/19 10/28/19 10/28/19 08:31 04:40 04:40 RBC 2.70 L Hgb 9.0 L Hct 26.9 L Plt Count 46 L* Lymph % (Auto) Lymph # (Auto) 1.0 L PT 15.8 H INR 1.3 H Sodium Anion Gap BUN Creatinine Glucose Calcium Phosphorus 2.1 L Direct Bilirubin 0.5 H Alkaline Phosphatase 155 H Albumin 1.7 L Globulin 4.2 H 10/28/19 10/27/19 10/27/19 04:40 16:55 16:55 RBC Hgb Hct Plt Count 63 L Lymph % (Auto) Lymph # (Auto) PT INR Sodium 131 L Anion Gap BUN Creatinine 0.5 L Glucose 192 H Calcium 7.3 L Phosphorus Direct Bilirubin Alkaline Phosphatase Albumin Globulin 10/27/19 10/27/19 10/27/19 08:33 04:30 04:30 RBC 2.87 L Hgb 9.6 L Hct 28.5 L Plt Count 39 L* Lymph % (Auto) 12.7 L Lymph # (Auto) 0.9 L PT 16.5 H INR 1.3 H Sodium 131 L Anion Gap 7.0 L BUN Creatinine 0.5 L Glucose 176 H Calcium 7.3 L Phosphorus Direct Bilirubin Alkaline Phosphatase Albumin Globulin Meds: Medications Acetaminophen (Tylenol) 650 mg PO Q4-6HP PRN; Protocol PRN Reason: Per Pain Protocol/Fever > 101 Last Admin: 10/29/19 04:11 Dose: 650 mg Documented by: Cefazolin Sodium (Ancef) 2 gm IV Q8H [facility] Last Admin: 10/29/19 13:59 Dose: 2 gm Documented by: Dextrose (Dextrose 50%) 50 ml IV UD PRN PRN Reason: Hypoglycemia Dextrose (Dextrose 50%) 0 ml IV UD PRN PRN Reason: Hypoglycemia Diagnostic Test (Pha) (Accu-Chek) 1 each FS [facility] Last Admin: 10/29/19 12:06 Dose: 1 each Documented by: Docusate Sodium (Colace) 100 mg PO BID [facility] Last Admin: 10/29/19 08:07 Dose: 100 mg Documented by: Glucose (Insta-Glucose) 15 gm PO PRN PRN PRN Reason: Hypoglycemia Hydromorphone HCl (Dilaudid) 1 mg IV Q4HP PRN; Protocol PRN Reason: Per Pain Protocol Insulin Glargine (Lantus) 60 unit SQ BID [facility] Last Admin: 10/29/19 08:07 Dose: 60 units Documented by: Insulin Human Lispro (Humalog) 0 unit SQ [facility]; Protocol Last Admin: 10/29/19 12:10 Dose: 6 units Documented by: Labetalol HCl (Trandate) 0 mg IV Q2HP PRN PRN Reason: Hypertension Lorazepam (Ativan) 0.5 mg IV Q6HP PRN PRN Reason: ANXIETY/SEDATION Last Admin: 10/27/19 11:51 Dose: 0.5 mg Documented by: Melatonin (Melatonin 3mg Tablet) 3 mg PO HSP PRN PRN Reason: Insomnia Ondansetron HCl (Zofran) 4 mg IV Q6HP PRN PRN Reason: Nausea And Vomiting Senna (Senokot) 2 tab PO HS [facility] Last Admin: 10/28/19 20:46 Dose: 2 tab Documented by: Sodium Chloride (Saline Flush) 10 ml IV Q8 [facility] Last Admin: 10/29/19 14:14 Dose: 10 ml Documented by: - ABG Interpretation ABG results: 10/20/19 13:12 ABG Methemoglobin 0.3 L VBG pH 7.30 L VBG pCO2 29.0 L VBG pO2 56 H VBG HCO3 14.0 L VBG Total CO2 14.9 L VBG O2 Saturation 73.5 H VBG Base Excess -11.1 L Medical - PN: A/P - Time Spent With Patient Total time spent is greater than 50% in coordination of care (as documented) at patient's floor/unit and/or counseling patient: Greater than 35 minutes (>50% couseling and coordination of care, review of extensive records) - Narrative A/P Narrative: *Right posterior thoracic wall MSSA abscess, extrapulmonary: Status post percutaneous drainage with no residual noted on ultrasound. *Bacteremia (MSSA): Source control now obtained. -TTE no vegetations, [facility] as outpatient -Cervical and thoracic MRI without evidence of epidural abscess, osteomyelitis or discitis *UTI (MSSA): *Sepsis: 2/2 above. RESOLVED *DM type 2 w/DKA: resolved -Patient not compliant with home medications, A1c 13 *Encephalopathy, metabolic: heavy drinker when he was young, but recently per notes and girlfriend rarely. RESOLVED -CT brain no acute findings -UDS and BAL neg but test done after several days of being in hospital -2/2 sepsis/medications/acute illness/metabolic imbalance -MRI of brain shows pontine lesions, time course and clinical improvement during shifts and sodium not consistent with acute CPM. Differential for such MRI findings includes malnutrition and alcohol. *lactic acidosis: Resolved *Hypernatremia (corrected sodium on admit was hypernatremic): + iatrogenic with initial fluid resuscitation -has been admitted in past for dehydration -Resolved *LIZ: Resolved *Cirrhosis w/thrombocytopenia: has had extensive w/u to determine etiology but likely EtOH. Improving yesterday, stable today *HTN: *Anemia: *Hypophos/kalemia/natremia: improving Plan: -Continue ceftriaxone -Follow-up imaging of subscapular region to assure no reaccumulation, tomorrow -Last sets of blood cultures negative greater than 48 hours, PICC line ordered -ARB/HCTZ initially held for LIZ and low BP -replete electrolytes -home insulin (increased again), SSI -outpt [facility] -ppx: Heparin (hold if PLT<50k)/scd
[2019-10-29] MEDS: SENNOSIDES 1 TABLET PO SCH (21:08)
[2019-10-30 05:13] LABS: Basophils # (Auto) 0 K/mcL (0.0-0.3); Basophils % (Auto) 0.5 % (0.0-2.0); Eosinophils # (Auto) 0.1 K/mcL (0.0-0.7); Eosinophils % (Auto) 1.8 % (0.0-7.0); Granulocytes % (Auto) 69.3 % (38.0-78.0); Hemoglobin 8.8 g/dL (13.5-16.5); Lymphocytes # (Auto) 1.1 K/mcL (1.5-4.8); Lymphocytes % (Auto) 20.7 % (15.5-49.0); Mean Cell Volume 98.6 fL (80.0-100.0); Mean Corpuscular HGB Conc 33.8 g/dL (31.0-36.0); Mean Platelet Volume 8.1 fL (7.4-10.4); Monocytes # (Auto) 0.4 K/mcL (0.1-0.9); Monocytes % (Auto) 7.7 % (1.0-12.0); Platelet Count 59 K/mcL (140-440); RBC 2.64 M/mcL (4.50-5.90); Red Cell Distribution Width 14.2 % (11.5-14.5); WBC 5.3 K/mcL (4.5-11.0)
[2019-10-30 05:38] LABS: ALT/SGPT 9 U/l (0-40); AST/SGOT 38 U/l (0-37); Albumin 1.8 gm/dL (3.2-5.2); Albumin/Globulin Ratio 0.4 (1.0-2.3); Alkaline Phosphatase 165 U/L (39-117); Bilirubin,Direct 0.2 mg/dL (0.0-0.3); Bilirubin,Total 0.6 mg/dL (0.0-1.0); Blood Urea Nitrogen 3 mg/dl (6-20); Calcium 7.3 mg/dl (8.6-10.4); Carbon Dioxide 22 mmol/L (22-30); Chloride 104 mmol/L (96-108); Globulin 4.7 gm/dL (2.2-3.7); Glomerular Filtration Rate 139; Glucose 112 mg/dL (70-105); Lactate Dehydrogenase 343 U/L (94-250); Phosphorous 2.2 mg/dL (2.7-4.5); Triglycerides 150 mg/dl (<150); Uric Acid 2.4 mg/dL (2.5-8.0)
[2019-10-30] MEDS: 0.9 % SODIUM CHLORIDE 10 ML SYRINGE IV SCH ×3 (06:14→21:34)
[2019-10-30] MEDS: ceFAZolin 1 GM VIAL IV SCH ×3 (06:14→22:10)
[2019-10-30] MEDS: INSULIN LISPRO 1 UNIT/0.01 ML UNIT SQ SCH ×4 (07:52→21:32)
[2019-10-30] MEDS ORDERED: IOPAMIDOL 100 ML BOTTLE IV ONE (08:41)
[2019-10-30] MEDS: ACETAMINOPHEN 325 MG TABLET PO PRN ×3 (09:06→21:30)
[2019-10-30] MEDS: INSULIN GLARGINE, HUMAN 1 UNIT/0.01 ML SQ SCH ×2 (09:08→21:32)
--- NOTE | 2019-10-30 10:29 | Cat Scan Report ---
CLINICAL INFORMATION: Follow-up right lateral chest wall fluid collection - likely an abscess COMPARISON: Chest CT four days prior: 10/26/2019 TECHNIQUE: 80 cc of Isovue-370 were injected intravenously, and 25 seconds later, 0.625 mm helical slices were obtained from the lung apices through the bases. Following reconstruction, 2.5 mm sagittal, coronal and axial reformations were processed and reviewed at lung, mediastinal and bone windows. 7 mm axial MIPS were also obtained to optimize pulmonary nodule detection. The exam was performed using radiation dose optimization techniques including, but not limited to, automated exposure control, adjustment of the mA and/or kV according to patient size and use of iterative reconstruction technique. FINDINGS: The heart is normal in size and configuration with very minimal scattered calcific atherosclerotic plaque. The thoracic and pulmonary arteries are normal in contour and caliber. There is no adenopathy in the mediastinal, hilar or axillary region. There is moderate wall thickening of the mid/distal thoracic esophagus. The thyroid is unremarkable. Pulmonary parenchymal windows show mild scattered pleural parenchymal scarring in the lingula, anterior and lateral basilar left lower lobe segments is unchanged. There are no infiltrates, nodules or new. Pleural spaces are normal. The large fluid collection, in the deep soft tissues of the posterior lateral right chest wall, has increased in size now spanning 14 x 17 cm. Moderate air has now developed compatible with gas generation from a anaerobic infection. The collection involves, and is deep to, the muscle bellies of the right latissimus dorsi and serratus anterior extending to the intercostal musculature. There is no evidence of extrapleural infection or empyema however. There is no osseous erosion. Images through the superior abdomen again show moderate cirrhosis with portal hypertension evidenced by portal vein enlargement and enlarged varices in the perisplenic and perigastric regions. The spleen is markedly enlarged measuring 20 x 9 cm. In addition, a small amount of ascites is present. Although there is been no change from chest CT only four days ago, cirrhosis and a degree of portal hypertension with splenic enlargement has worsened considerably since a remote [address] IMPRESSION: 1. Large (17 x 14 cm) abscess in the deep right posterior lateral chest wall involving predominantly the latissimus dorsi and serratus anterior musculature. It has increased in size and developed gas since the CT just four days prior. Suggest: CT-guided placement of a percutaneous catheter for drainage. 2. Moderate wall thickening the mid distal thoracic esophagus likely indicative of chronic peptic esophagitis or reflux esophagitis. Consider endoscopy. 3. Moderate cirrhosis with small amount of ascites and portal hypertension with multiple varices in the peripancreatic, splenic gastric regions. There is been considerable worsening since the remote [address] Interpreted and Authenticated by: Karthikeyan Dia 10/30/19
--- NOTE | 2019-10-30 11:08 | Infectious Disease Prog Note ---
Subjective Patient information: Note initiated : 10/30/19 at 11:05 am Service Date, if different from initiated Date: [] Patient: Tarun Molina 49 y/o M admitted on 10/20/19 for BLOOD SUGAR PROBLEM. Chief Complaint: [] Principal diagnosis: DKA Interval history: Pt doing fine. Reports pain in back, similar to what he had last week. Denies any fever, chills, n/v, diarrhea. Is working with PT to get his strength back. Discussed plans for drainage of the back abscess by surgery or IR. Objective Objective Narrative: ao x 3, in nad no thrush chest has mild crackles at left lung base s1 s2 normal, no m/r/g tenderness, swelling with fluctuance over right scapular area (about 4 x 7 cm), no drainage, redness no point tenderness over palpation of cervical and thoracic spine edema in both lower legs has left forearm peripheral IV - Vital Signs Vital signs: Vital Signs Temp Pulse Resp BP BP Pulse Ox 10/30/19 07:52 37.1 C 96 H 18 115/67 99 10/30/19 03:55 36.4 C 91 H 16 92/54 96 10/29/19 23:15 36.5 C 89 20 108/65 97 10/29/19 19:21 36.8 C 95 H 18 112/62 97 10/29/19 16:00 36.8 C 20 94/55 97 10/29/19 12:00 37.6 C H 20 107/61 99 Intake and Output 10/29/19 10/30/19 10/30/19 21:59 05:59 13:59 Intake Total 2100 700 Output Total 975 475 425 Balance 1125 225 -425 Intake: Oral 2099 700 Output: Void Amount 975 475 425 Other: Meal Dinner pudding Percent of Meal Consumed 95% 100% Feeding Ability Independent Independent Urine Appearance Clear Clear Urine Color Light Bing Bright Yellow Dark Yellow Urine Odor Strong Stool Size Moderate Stool Color Brown Stool Consistency Soft Loose # Bowel Movements 1 Weight 107.32 kg Intake & Output: Intake & Output 10/29/19 10/30/19 10/30/19 21:59 05:59 13:59 Intake Total 2100 700 Output Total 975 865 425 Balance 1125 225 -425 Weight 107.32 kg Intake: Oral 2099 700 Output: Void Amount 975 079 425 Other: Meal Dinner pudding Percent of Meal Consumed 95% 100% Feeding Ability Independent Independent Urine Appearance Clear Clear Urine Color Light Bing Bright Yellow Dark Yellow Urine Odor Strong Stool Size Moderate Stool Color Brown Stool Consistency Soft Loose # Bowel Movements 1 - Lab 10/30/19 04:10 10/30/19 04:10 Most recent lab results Calcium 7.3 mg/dl (8.6-10.4) L 10/30/19 04:10 Phosphorus 2.2 mg/dL (2.7-4.5) L 10/30/19 04:10 Magnesium 1.7 mg/dL (1.6-2.5) 10/30/19 04:10 Microbiology 10/28/19 12:10 Aspirate - Other Gram Stain - Final 10/28/19 12:10 Aspirate - Other Body Fluid Culture - Final Staphylococcus aureus 10/25/19 04:35 Blood Blood Culture - Final 10/25/19 04:40 Blood Blood Culture - Final 10/23/19 00:42 Blood Blood Culture - Final Staphylococcus aureus 10/23/19 04:10 Blood Blood Culture - Final 10/21/19 12:38 Blood Blood Culture - Final Staphylococcus aureus 10/21/19 12:23 Blood Blood Culture - Final Staphylococcus aureus 10/20/19 15:43 Blood Blood Culture - Final Staphylococcus aureus 10/20/19 15:48 Blood Blood Culture - Final Staphylococcus aureus 10/20/19 14:26 Urine - Clean Void Mid-Stream Urine Culture - Final Staphylococcus aureus 10/20/19 19:29 Nose MRSA (PCR) - Final Medications Active Medications: Acetaminophen (Tylenol) 650 mg PO Q4-6HP PRN; Protocol PRN Reason: Per Pain Protocol/Fever > 101 Last Admin: 10/30/19 09:06 Dose: 650 mg Documented by: [email or web address] Admin: 10/29/19 16:10 Dose: 650 mg Documented by: Admin: 10/29/19 04:11 Dose: 650 mg Documented by: Admin: 10/28/19 20:44 Dose: 650 mg Documented by: Admin: 10/28/19 15:02 Dose: 650 mg Documented by: Admin: 10/28/19 08:17 Dose: 650 mg Documented by: Admin: 10/27/19 21:17 Dose: 650 mg Documented by: Admin: 10/27/19 17:07 Dose: 650 mg Documented by: Admin: 10/27/19 06:14 Dose: 650 mg Documented by: Admin: 10/26/19 19:54 Dose: 650 mg Documented by: Admin: 10/26/19 08:30 Dose: 650 mg Documented by: Admin: 10/25/19 21:08 Dose: 650 mg Documented by: Admin: 10/25/19 12:10 Dose: 650 mg Documented by: NOHEMI Cefazolin Sodium (Ancef) 2 gm IV Q8H [facility] Last Admin: 10/30/19 06:14 Dose: 2 gm Documented by: Admin: 10/29/19 22:19 Dose: 2 gm Documented by: Admin: 10/29/19 13:59 Dose: 2 gm Documented by: Admin: 10/29/19 06:05 Dose: 2 gm Documented by: Admin: 10/28/19 21:54 Dose: 2 gm Documented by: Admin: 10/28/19 15:02 Dose: 2 gm Documented by: Admin: 10/28/19 05:58 Dose: 2 gm Documented by: Admin: 10/27/19 21:52 Dose: 2 gm Documented by: Admin: 10/27/19 16:54 Dose: 2 gm Documented by: Admin: 10/27/19 05:12 Dose: 2 gm Documented by: Admin: 10/26/19 21:59 Dose: 2 gm Documented by: Admin: 10/26/19 13:54 Dose: 2 gm Documented by: Admin: 10/26/19 05:15 Dose: 2 gm Documented by: Admin: 10/25/19 22:17 Dose: 2 gm Documented by: Admin: 10/25/19 14:49 Dose: 2 gm Documented by: NOHEMI Dextrose (Dextrose 50%) 50 ml IV UD PRN PRN Reason: Hypoglycemia Dextrose (Dextrose 50%) 0 ml IV UD PRN PRN Reason: Hypoglycemia Diagnostic Test (Pha) (Accu-Chek) 1 each FS ACHS [facility] Last Admin: 10/30/19 07:51 Dose: 1 each Documented by: [email or web address] Admin: 10/29/19 21:06 Dose: 1 each Documented by: Admin: 10/29/19 17:06 Dose: 1 each Documented by: Admin: 10/29/19 12:06 Dose: 1 each Documented by: Admin: 10/29/19 08:07 Dose: 1 each Documented by: Admin: 10/28/19 20:30 Dose: 1 each Documented by: Admin: 10/28/19 16:55 Dose: 1 each Documented by: Admin: 10/28/19 15:01 Dose: 1 each Documented by: Admin: 10/28/19 07:33 Dose: 1 each Documented by: Admin: 10/27/19 21:26 Dose: 1 each Documented by: Admin: 10/27/19 17:12 Dose: 1 each Documented by: Admin: 10/27/19 17:12 Dose: Not Given Documented by: LULÚ Non-Admin Reason: npo Admin: 10/27/19 08:14 Dose: 1 each Documented by: Admin: 10/26/19 21:41 Dose: 1 each Documented by: Admin: 10/26/19 16:38 Dose: 1 each Documented by: Admin: 10/26/19 12:22 Dose: 1 each Documented by: Admin: 10/26/19 07:36 Dose: 1 each Documented by: Admin: 10/25/19 21:16 Dose: 1 each Documented by: Admin: 10/25/19 17:07 Dose: 1 each Documented by: Admin: 10/25/19 11:41 Dose: 1 each Documented by: AEYovana Docusate Sodium (Colace) 100 mg PO BID [facility] Last Admin: 10/29/19 21:07 Dose: Not Given Documented by: ASPEN Non-Admin Reason: Loose Stool Admin: 10/29/19 08:07 Dose: 100 mg Documented by: Admin: 10/28/19 20:46 Dose: 100 mg Documented by: Admin: 10/28/19 07:32 Dose: 100 mg Documented by: Admin: 10/27/19 21:17 Dose: 100 mg Documented by: Admin: 10/27/19 16:14 Dose: Not Given Documented by: FERNANDEZ Non-Admin Reason: NPO Admin: 10/26/19 19:54 Dose: 100 mg Documented by: Admin: 10/26/19 08:19 Dose: 100 mg Documented by: Admin: 10/25/19 21:02 Dose: 100 mg Documented by: GOPI Glucose (Insta-Glucose) 15 gm PO PRN PRN PRN Reason: Hypoglycemia Hydromorphone HCl (Dilaudid) 1 mg IV Q4HP PRN; Protocol PRN Reason: Per Pain Protocol Insulin Glargine (Lantus) 60 unit SQ BID [facility] Last Admin: 10/30/19 09:08 Dose: 60 units Documented by: Admin: 10/29/19 21:07 Dose: 60 units Documented by: Admin: 10/29/19 08:07 Dose: 60 units Documented by: Admin: 10/28/19 20:43 Dose: 60 units Documented by: Admin: 10/28/19 07:37 Dose: Not Given Documented by: FERNANDEZ Non-Admin Reason: NPO Admin: 10/27/19 21:19 Dose: 60 units Documented by: GOPI Comments: BG = [id number] Admin: 10/27/19 08:15 Dose: Not Given Documented by: LULÚ Non-Admin Reason: held NPO at this time Insulin Human Lispro (Humalog) 0 unit SQ ACHS [facility]; Protocol Last Admin: 10/30/19 07:52 Dose: Not Given Documented by: DAVID Non-Admin Reason: No Coverage Needed Admin: 10/29/19 21:07 Dose: 10 units Documented by: Admin: 10/29/19 17:09 Dose: 8 units Documented by: Admin: 10/29/19 12:10 Dose: 6 units Documented by: Admin: 10/29/19 07:09 Dose: 8 units Documented by: Admin: 10/28/19 20:43 Dose: 10 units Documented by: Admin: 10/28/19 16:55 Dose: 10 units Documented by: Admin: 10/28/19 15:02 Dose: Not Given Documented by: FERNANDEZ Non-Admin Reason: NPO Admin: 10/28/19 07:34 Dose: Not Given Documented by: FERNANDEZ Non-Admin Reason: Clinical Judgement Admin: 10/27/19 21:19 Dose: 12 units Documented by: GOPI Comments: BG = [id number] Admin: 10/27/19 16:57 Dose: 6 units Documented by: LULÚ Comments: 231 Admin: 10/27/19 16:57 Dose: Not Given Documented by: LULÚ Non-Admin Reason: not given npo Admin: 10/27/19 08:15 Dose: Not Given Documented by: LULÚ Non-Admin Reason: held,NPO at this time Admin: 10/26/19 21:37 Dose: 8 units Documented by: GOPI Comments: BG = [id number] Admin: 10/26/19 16:44 Dose: 8 units Documented by: Admin: 10/26/19 12:22 Dose: 8 units Documented by: Admin: 10/26/19 07:41 Dose: 2 units Documented by: Admin: 10/25/19 21:03 Dose: 8 units Documented by: GOPI Comments: BG = [id number] Admin: 10/25/19 17:12 Dose: 8 units Documented by: Admin: 10/25/19 12:14 Dose: 6 units Documented by: NOHEMI Labetalol HCl (Trandate) 0 mg IV Q2HP PRN PRN Reason: Hypertension Lorazepam (Ativan) 0.5 mg IV Q6HP PRN PRN Reason: ANXIETY/SEDATION Last Admin: 10/27/19 11:51 Dose: 0.5 mg Documented by: LULÚ Melatonin (Melatonin 3mg Tablet) 3 mg PO HSP PRN PRN Reason: Insomnia Ondansetron HCl (Zofran) 4 mg IV Q6HP PRN PRN Reason: Nausea And Vomiting Senna (Senokot) 2 tab PO HS [facility] Last Admin: 10/29/19 21:08 Dose: Not Given Documented by: ASPEN Non-Admin Reason: Loose Stool Admin: 10/28/19 20:46 Dose: 2 tab Documented by: Admin: 10/27/19 21:18 Dose: 2 tab Documented by: Admin: 10/26/19 19:56 Dose: 2 tab Documented by: Admin: 10/25/19 21:01 Dose: 2 tab Documented by: GOPI Sodium Chloride (Saline Flush) 10 ml IV Q8 [facility] Last Admin: 10/30/19 06:14 Dose: 10 ml Documented by: Admin: 10/29/19 22:20 Dose: 10 ml Documented by: Admin: 10/29/19 14:14 Dose: 10 ml Documented by: Admin: 10/29/19 06:05 Dose: 10 ml Documented by: Admin: 10/28/19 21:53 Dose: 10 ml Documented by: Admin: 10/28/19 15:02 Dose: 10 ml Documented by: Admin: 10/28/19 05:58 Dose: 10 ml Documented by: Admin: 10/27/19 21:57 Dose: 10 ml Documented by: Admin: 10/27/19 16:56 Dose: 10 ml Documented by: Admin: 10/27/19 05:11 Dose: 10 ml Documented by: Admin: 10/26/19 22:00 Dose: 10 ml Documented by: Admin: 10/26/19 13:57 Dose: 10 ml Documented by: Admin: 10/26/19 05:15 Dose: 10 ml Documented by: Admin: 10/25/19 22:18 Dose: 10 ml Documented by: Admin: 10/25/19 14:50 Dose: 10 ml Documented by: NOHEMI Assessment and Plan - Narrative A/P Narrative: A: 1. MSSA bacteremia: possible seeding of right extrapleural soft tissue fluid collection - Being insulin dependent DM2, it is possible that he might have skin translocation of MSSA during insulin injection or blood sugar testing. - neg TTE - given multiple +ve blood Cx (2/2 sets on 10/20, 10/21 and 10/23 so far), will need [facility] evaluation 2. DKA: AG closed 3. Rt lateral chest wall abscess due to MSSA: possible source or seeding from MSSA bacteremia -seen on CT right shoulder on 10/26 as 16 cm in length, 14 cm in AP dimension and 2.8 cm in width, located between the ribs and the overlying right latissimus dorsi muscle). Increased size on subsequent CT today to 14 x 17 cm with inv of serratus anterior {not reported on past CT] - s/p one time drainage by IR on 10/28 with removal of pus, Cx growing Staph aureus 4. 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 This pt doesnot have neutropenia, so will keep it low on di fferential Recommendations: - Continue IV Cefazolin 2 gm q8 hrs, day 6 - anticipate at least 4 weeks of IV antibiotics - Given extent of abscess, depth, inv of muscles; pt would benefit from surgical debridement. Spoke with Dr. Giles (general surgery) for evaluation for I&D of Rt sided deep abscess underlying right posterior lateral chest wall and involving predominantly the latissimus dorsi and serratus anterior musculature. Dr Giles plans to debride it tomorrow - consider PICC line placement near discharge (tentatively scheduled for 11/03/19 at 1:30 pm) - will pursue [facility] as Outpatient [tentatively scheduled for 11/03/19 after PICC placement] - 2% CHG bathing below neck all over body once daily for 5 days, day 5/5 will follow Jaison Colvin MD Infectious diseases
[2019-10-30] MEDS: DOCUSATE SODIUM 100 MG CAPSULE PO SCH ×2 (12:07→21:31)
--- NOTE | 2019-10-30 18:07 | General Surgery Consult Note ---
History of Present Illness Patient information: Note initiated : 10/30/19 at 6:05 pm Service Date, if different from initiated Date: [] Patient: Tarun Molina 49 y/o M admitted on 10/20/19 for BLOOD SUGAR PROBLEM. Chief Complaint:abscess Consult date: 10/30/19 Requesting physician: Jaison Colvin History of present illness: 49 year old admitted with DKA who had a right chest wall abscess drained by radiologist that has recurred by physical exam and CT findings. Cultures show MSSA. He also had cirrhosis. He denie any significant pain, Review of Systems - Constitutional no fever(s) - Cardiovascular no chest pain - Respiratory no dyspnea - Gastrointestinal no abdominal pain Past History Past medical history: Cirrhosis IDDM Medications and Allergies Home Medications Medication Instructions Recorded Confirmed Type Insulin Glargine,Hum.rec.anlog 52 unit SQ BID 10/20/19 10/23/19 History [Lantus Solostar] Insulin Lispro [Humalog] See Protocol SQ QID 10/20/19 10/23/19 History Losartan/Hydrochlorothiazide 100 mg PO DAILY 10/20/19 10/20/19 History [Losartan-Hctz 100-25 mg Tab] Acetaminophen W/Codeine #3 1 tab PO Q4-6HP PRN 10/22/19 10/22/19 History [Tylenol #3] Allergies Allergy/AdvReac Type Severity Reaction Status Date / Time latex Allergy Unknown Unknown Verified 10/26/19 10:01 Exam Temp Pulse Resp BP Pulse Ox 98.5 F 100 H 16 99/63 100 10/30/19 11:52 10/30/19 11:52 10/30/19 11:52 10/30/19 11:52 10/30/19 11:52 - General physical appearance chronically ill - Cardiovascular Cardiovascular exam IM: Present: normal rate and rhythm - Abdomen Abdomen: Present: distended - Neurologic Present: normal coordination - Psychiatric Present: oriented to time, oriented to person, oriented to place, speech is normal - Additional Findings Rioght lateral chest 10 cm fluctuent subcutaneous mass, non-tender, overlying skin appears normal Results - Labs 10/30/19 04:10 10/30/19 04:10 Abnormal lab results 10/30/19 10/30/19 Range/Units 04:10 04:10 RBC 2.64 L (4.50-5.90) M/mcL Hgb 8.8 L (13.5-16.5) g/dL Hct 26.0 L (41.0-55.0) % Plt Count 59 L (140-440) K/mcL Lymph # (Auto) 1.1 L (1.5-4.8) K/mcL BUN 3 L (6-20) mg/dl Creatinine 0.4 L (0.7-1.2) mg/dl Glucose 112 H (70-105) mg/dL Uric Acid 2.4 L (2.5-8.0) mg/dL Calcium 7.3 L (8.6-10.4) mg/dl Phosphorus 2.2 L (2.7-4.5) mg/dL GGT 141 H (8-61) U/L AST 38 H (0-37) U/l Alkaline Phosphatase 165 H (39-117) U/L Lactate Dehydrogenase 343 H (94-250) U/L Albumin 1.8 L (3.2-5.2) gm/dL Globulin 4.7 H (2.2-3.7) gm/dL Albumin/Globulin Ratio 0.4 L (1.0-2.3) Diabetes panel 10/30/19 Range/Units 04:10 Sodium 135 (133-145) mmol/L Potassium 3.7 (3.3-5.1) mmol/L Chloride 104 (96-108) mmol/L Carbon Dioxide 22 (22-30) mmol/L BUN 3 L (6-20) mg/dl Creatinine 0.4 L (0.7-1.2) mg/dl Glucose 112 H (70-105) mg/dL Calcium 7.3 L (8.6-10.4) mg/dl AST 38 H (0-37) U/l ALT 9 (0-40) U/l Alkaline Phosphatase 165 H (39-117) U/L Total Protein 6.5 (5.9-8.4) gm/dL Albumin 1.8 L (3.2-5.2) gm/dL Triglycerides 150 (<150) mg/dl Calcium panel 10/30/19 Range/Units 04:10 Calcium 7.3 L (8.6-10.4) mg/dl Phosphorus 2.2 L (2.7-4.5) mg/dL Albumin 1.8 L (3.2-5.2) gm/dL Pituitary panel 10/30/19 Range/Units 04:10 Sodium 135 (133-145) mmol/L Potassium 3.7 (3.3-5.1) mmol/L Chloride 104 (96-108) mmol/L Carbon Dioxide 22 (22-30) mmol/L BUN 3 L (6-20) mg/dl Creatinine 0.4 L (0.7-1.2) mg/dl Glucose 112 H (70-105) mg/dL Calcium 7.3 L (8.6-10.4) mg/dl Adrenal panel 10/30/19 Range/Units 04:10 Sodium 135 (133-145) mmol/L Potassium 3.7 (3.3-5.1) mmol/L Chloride 104 (96-108) mmol/L Carbon Dioxide 22 (22-30) mmol/L BUN 3 L (6-20) mg/dl Creatinine 0.4 L (0.7-1.2) mg/dl Glucose 112 H (70-105) mg/dL Calcium 7.3 L (8.6-10.4) mg/dl Total Bilirubin 0.6 (0.0-1.0) mg/dL AST 38 H (0-37) U/l ALT 9 (0-40) U/l Alkaline Phosphatase 165 H (39-117) U/L Total Protein 6.5 (5.9-8.4) gm/dL Albumin 1.8 L (3.2-5.2) gm/dL All other labs normal. - Imaging CT scan - abdomen: report reviewed, image reviewed Assessment and Plan (1) Chest wall abscess Incision and drainage, possible drainage of right chest wall abscess in the OR on 10/31/19. Status: Acute
[2019-10-30] MEDS ORDERED: 0.9 % SODIUM CHLORIDE 250 ML IV SCH (21:15)
--- NOTE | 2019-10-30 21:19 | Internal Med Progress Note ---
Medical - PN: Subj Patient information: Note initiated : 10/30/19 at 9:16 pm Service Date, if different from initiated Date: [] Patient: Tarun Molina a 49 y/o M admitted on 10/20/19 for BLOOD SUGAR PROBLEM. Chief Complaint: Follow up MSSA sepsis Interval history: 10/20 Mr. Molina is a 49 year old M with a history of diabetes type 2, and high blood pressure who was presented to the ER because he does not feel well for days. Patient is tired and lethargic and a poor historian. As per patient and , patient has not been feeling well for 1 month, but his symptoms have been worsening over the past week. Over the past week he has been having nausea, dizziness, back pain, and dysuria. He has not used diabetic medications for days. In the ER, he was found to have hyperglycemia, 662. 3 L normal saline, 10 units of regular insulin, 1 g of ceftriaxone were given. When I saw this patient in the ER, he felt better. But he still had these symptoms mentioned above. Blood glucose 485. 10/21 When I saw this patient this morning, he was sleeping. He was given Ativan for agitation. Patient has tachycardia and tachypnea White blood cells normalized today, 9.3. Platelet went down to 69 from 107 yesterday Anion gap closed, 14.0 Blood culture showed gram-positive cocci 10/22 Patient slept most the day yesterday after given sedatives. Was agitated last night and given Ativan and a one-time dose of Haldol. This morning attempted to get echocardiogram the patient was agitated and pulling at lines, nurse was able to communicate with him to some degree and patient was following some commands but was not cooperative with exam and thus needed some as needed Ativan to undergo the echo. At this time patient is drowsy. Sodium elevated again today. Increase hypotonic solution. And adjust IV riders to hypotonic solution. Follow-up lactate. 10/23 pt became agitated last night was given Vistaril and eventually needed haldol 2.5mg. drowsy this morning, moans to touch but will not open eyes or verbalize. sodium still high despite d5w. pending repeat lactate. will consult nephro for hypernatremia. unable to gather review of systems given current mental state. was under impression that all IV fluids were adjusted to hypotonic solution, however, the insulin gtt was still running in NS. After adjusting this and additional d5w, his sodium returned to normal. 10/24 Slept most the night. No agitation night. Patient currently sitting up in chair. Tolerated liquid diet yesterday. Mentation significantly improved. Patient does still appear drowsy. Has occasional cough denies shortness of breath. 10/25 In chair eating breakfast. Overall feeling better. No overnight events. 10/26 Continues to feel better day-to-day. Up eating breakfast. No new complaints. Waiting for negative blood cultures before placing PICC and further plans for discharge. 10/27 No overnight events. Occasional cough. No new complaints. Patient unable to cooperate for this final MRI yesterday. Begetting catheter drainage of fluid collection this morning. 10/28 Slept well and no overnight events. Complaining of upper right back discomfort where the fluid collection is. Planning for platelets transfusion and then drainage by radiology with cultures. 10/29 Pain improved after drainage of abscess yesterday, 70 mL of purulent material drained. Culture is growing MSSA as well. Discussed with ID yesterday, will reimage to ensure no reaccumulation, as no drainage catheter left in place. 10/[address] scan shows reaccumulation of fluid collection in the infrascapular region. Patient with worsening pain and swelling in the region of drainage that was done on 10/28. Discussed the case with Dr. Colvin for ID, Dr. Dai in radiology, initially. Dr. Colvin also spoke with Dr. Dawson for surgery, who agreed that open incision and drainage is indicated. Patient realizes he will require further debridement. Earlier in the day, PICC line was attempted to be placed, but failed on 3 occasions, likely will need outpatient PICC at the time of discharge. Platelets low but stable at 61,000, will plan to transfuse prior to the OR tomorrow. - Constitutional Vitals: Vital Signs Temp Pulse Resp BP Pulse Ox 99.7 F H 95 H 12 101/58 98 10/30/19 19:12 10/30/19 19:12 10/30/19 19:12 10/30/19 19:12 10/30/19 19:12 Period Temp Pulse Resp BP Sys/Garcia Pulse Ox Last 24 Hr 97.6 F-99.7 F 89-100 12- 92-115/54-76 96-100 Intake and Output 10/30/19 10/30/19 10/30/19 05:59 13:59 21:59 Intake Total 700 640 640 Output Total 475 425 900 Balance 225 215 -260 Weight 237 lb 3.2 oz Patient Weight 10/31/19 05:59 Weight 237 lb 3.2 oz Intake & Output: Intake & Output 10/30/19 10/30/19 10/30/19 05:59 13:59 21:59 Intake Total 700 640 640 Output Total 475 425 900 Balance 225 215 -260 Weight 237 lb 3.2 oz Intake: Oral 700 640 640 Output: Void Amount 475 425 500 Urine/Stool Mix 400 Other: Meal pudding Breakfast Dinner Percent of Meal Consumed 100% 100% 100% Feeding Ability Independent Independent Urine Appearance Clear Clear Urine Color Bright Yellow Dark Yellow Exam: General: Laying in bed no acute distress Chest: Clear bilaterally and my exam. Unlabored Back: Swelling and mild tenderness with fluctuance inferior to the right scapula, new finding since exam yesterday. Cardiovascular: Regular, no murmur appreciated Abdomen: Obese, soft, nontender Neuro: Alert, oriented x3, nonfocal, walking in the halls Medical - PN: Obj Da - Labs CBC & Chem 7: 10/30/19 04:10 10/30/19 04:10 Labs: Abnormal Lab Results 10/30/19 10/30/19 10/29/19 04:10 04:10 04:20 RBC 2.64 L Hgb 8.8 L Hct 26.0 L Plt Count 59 L Lymph # (Auto) 1.1 L PT INR Sodium 129 L Anion Gap 7.0 L BUN 3 L 5 L Creatinine 0.4 L 0.5 L Glucose 112 H 352 H Uric Acid 2.4 L Calcium 7.3 L 7.3 L Phosphorus 2.2 L Direct Bilirubin GGT 141 H AST 38 H Alkaline Phosphatase 165 H Lactate Dehydrogenase 343 H Albumin 1.8 L Globulin 4.7 H Albumin/Globulin Ratio 0.4 L 10/29/19 10/28/19 10/28/19 04:20 09:50 08:31 RBC 2.83 L Hgb 9.5 L Hct 28.1 L Plt Count 59 L 61 L Lymph # (Auto) 0.9 L PT 15.8 H INR 1.3 H Sodium Anion Gap BUN Creatinine Glucose Uric Acid Calcium Phosphorus Direct Bilirubin GGT AST Alkaline Phosphatase Lactate Dehydrogenase Albumin Globulin Albumin/Globulin Ratio 10/28/19 10/28/19 10/28/19 04:40 04:40 04:40 RBC 2.70 L Hgb 9.0 L Hct 26.9 L Plt Count 46 L* Lymph # (Auto) 1.0 L PT INR Sodium Anion Gap BUN Creatinine 0.5 L Glucose 192 H Uric Acid Calcium 7.3 L Phosphorus 2.1 L Direct Bilirubin 0.5 H GGT AST Alkaline Phosphatase 155 H Lactate Dehydrogenase Albumin 1.7 L Globulin 4.2 H Albumin/Globulin Ratio Microbiology 10/28/19 12:10 Gram Stain - Final Aspirate - Other Body Fluid Culture - Final Staphylococcus aureus 10/25/19 04:35 Blood Culture - Final Blood 10/25/19 04:40 Blood Culture - Final Blood 10/23/19 00:42 Blood Culture - Final Blood Staphylococcus aureus 10/23/19 04:10 Blood Culture - Final Blood 10/21/19 12:38 Blood Culture - Final Blood Staphylococcus aureus 10/21/19 12:23 Blood Culture - Final Blood Staphylococcus aureus 10/20/19 15:43 Blood Culture - Final Blood Staphylococcus aureus 10/20/19 15:48 Blood Culture - Final Blood Staphylococcus aureus 10/20/19 14:26 Urine Culture - Final Urine - Clean Void Mid-Stream Staphylococcus aureus 10/20/19 19:29 MRSA (PCR) - Final Nose Meds: Medications Acetaminophen (Tylenol) 650 mg PO Q4-6HP PRN; Protocol PRN Reason: Per Pain Protocol/Fever > 101 Last Admin: 10/30/19 14:43 Dose: 650 mg Documented by: Cefazolin Sodium (Ancef) 2 gm IV Q8H [facility] Last Admin: 10/30/19 14:22 Dose: 2 gm Documented by: Dextrose (Dextrose 50%) 50 ml IV UD PRN PRN Reason: Hypoglycemia Dextrose (Dextrose 50%) 0 ml IV UD PRN PRN Reason: Hypoglycemia Diagnostic Test (Pha) (Accu-Chek) 1 each FS ACHS [facility] Last Admin: 10/30/19 17:16 Dose: 1 each Documented by: Docusate Sodium (Colace) 100 mg PO BID [facility] Last Admin: 10/30/19 12:07 Dose: Not Given Documented by: Glucose (Insta-Glucose) 15 gm PO PRN PRN PRN Reason: Hypoglycemia Hydromorphone HCl (Dilaudid) 1 mg IV Q4HP PRN; Protocol PRN Reason: Per Pain Protocol Sodium Chloride (Sodium Chloride 0.9%) 250 mls @ 20 mls/hr IV .[id number] [facility] Stop: 10/31/19 09:44 Insulin Glargine (Lantus) 60 unit SQ BID [facility] Last Admin: 10/30/19 09:08 Dose: 60 units Documented by: Insulin Human Lispro (Humalog) 0 unit SQ ACHS [facility]; Protocol Last Admin: 10/30/19 17:14 Dose: 8 units Documented by: Labetalol HCl (Trandate) 0 mg IV Q2HP PRN PRN Reason: Hypertension Lorazepam (Ativan) 0.5 mg IV Q6HP PRN PRN Reason: ANXIETY/SEDATION Last Admin: 10/27/19 11:51 Dose: 0.5 mg Documented by: Melatonin (Melatonin 3mg Tablet) 3 mg PO HSP PRN PRN Reason: Insomnia Ondansetron HCl (Zofran) 4 mg IV Q6HP PRN PRN Reason: Nausea And Vomiting Senna (Senokot) 2 tab PO HS [facility] Last Admin: 10/29/19 21:08 Dose: Not Given Documented by: Sodium Chloride (Saline Flush) 10 ml IV Q8 [facility] Last Admin: 10/30/19 14:22 Dose: 10 ml Documented by: - ABG Interpretation ABG results: 10/20/19 13:12 ABG Methemoglobin 0.3 L VBG pH 7.30 L VBG pCO2 29.0 L VBG pO2 56 H VBG HCO3 14.0 L VBG Total CO2 14.9 L VBG O2 Saturation 73.5 H VBG Base Excess -11.1 L Medical - PN: A/P - Time Spent With Patient Total time spent is greater than 50% in coordination of care (as documented) at patient's floor/unit and/or counseling patient: Greater than 35 minutes - Narrative A/P Narrative: *Right posterior thoracic wall MSSA abscess, extrapulmonary: Status post percutaneous drainage with recurrent abscess on reimaging 10/30. *Bacteremia (MSSA): Source control still not completed with recurrent abscess in the back. -TTE no vegetations, [facility] as outpatient -Cervical and thoracic MRI without evidence of epidural abscess, osteomyelitis or discitis *UTI (MSSA): *Sepsis: 2/2 above. RESOLVED *DM type 2 w/DKA: resolved -Patient not compliant with home medications, A1c 13 *Encephalopathy, metabolic: heavy drinker when he was young, but recently per notes and girlfriend rarely. RESOLVED -CT brain no acute findings -UDS and BAL neg but test done after several days of being in hospital -2/2 sepsis/medications/acute illness/metabolic imbalance -MRI of brain shows pontine lesions, time course and clinical improvement during shifts and sodium not consistent with acute CPM. -Differential for such MRI findings includes malnutrition and alcohol. *lactic acidosis: Resolved *Hypernatremia (corrected sodium on admit was hypernatremic): + iatrogenic with initial fluid resuscitation -has been admitted in past for dehydration -Resolved *LIZ: Resolved *Cirrhosis w/thrombocytopenia: has had extensive w/u to determine etiology but likely EtOH. Stable. *HTN: *Anemia: *Hypophos/kalemia/natremia: improving Plan: -Continue cefazolin -Anticipate surgical drainage on 10/31 -N.p.o. after midnight -Platelet transfusion early tomorrow morning preop -Last sets of blood cultures negative greater than 48 hours, PICC line ordered -ARB/HCTZ initially held for LIZ and low BP -Replete electrolytes PRN -Home insulin, SSI -outpt [facility] -ppx: Heparin (hold if PLT<50k)/scd
[2019-10-30] MEDS: SENNOSIDES 1 TABLET PO SCH (21:31)
[2019-10-31 01:11] LABS: INR 1.3 (0.9-1.1)
[2019-10-31] MEDS: 0.9 % SODIUM CHLORIDE 10 ML SYRINGE IV SCH ×3 (06:09→22:47)
[2019-10-31] MEDS: ceFAZolin 1 GM VIAL IV SCH ×3 (06:10→22:46)
[2019-10-31 06:21] LABS: Basophils # (Auto) 0 K/mcL (0.0-0.3); Basophils % (Auto) 0.5 % (0.0-2.0); Eosinophils # (Auto) 0.1 K/mcL (0.0-0.7); Granulocytes % (Auto) 74.1 % (38.0-78.0); Hematocrit 25.7 % (41.0-55.0); Hemoglobin 8.6 g/dL (13.5-16.5); Lymphocytes # (Auto) 0.9 K/mcL (1.5-4.8); Lymphocytes % (Auto) 16.2 % (15.5-49.0); Mean Cell Volume 98.4 fL (80.0-100.0); Mean Corpuscular HGB Conc 33.4 g/dL (31.0-36.0); Mean Platelet Volume 8.3 fL (7.4-10.4); Monocytes # (Auto) 0.4 K/mcL (0.1-0.9); Monocytes % (Auto) 7.2 % (1.0-12.0); Platelet Count 64 K/mcL (140-440); RBC 2.61 M/mcL (4.50-5.90); Red Cell Distribution Width 14.4 % (11.5-14.5); WBC 5.5 K/mcL (4.5-11.0)
[2019-10-31] MEDS: HYDROmorphone 2 MG/ML VIAL IV PRN ×2 (06:30→13:25)
[2019-10-31 07:00] LABS: ALT/SGPT 10 U/l (0-40); AST/SGOT 47 U/l (0-37); Alkaline Phosphatase 180 U/L (39-117); Bilirubin,Direct 0.3 mg/dL (0.0-0.3); Bilirubin,Total 0.7 mg/dL (0.0-1.0); Calcium 7.2 mg/dl (8.6-10.4); Carbon Dioxide 24 mmol/L (22-30); Chloride 102 mmol/L (96-108); Glucose 125 mg/dL (70-105); Lactate Dehydrogenase 289 U/L (94-250); Triglycerides 140 mg/dl (<150); Uric Acid 2.5 mg/dL (2.5-8.0)
[2019-10-31 07:05] LABS: Albumin 1.7 gm/dL (3.2-5.2); Albumin/Globulin Ratio 0.3 (1.0-2.3); Blood Urea Nitrogen 5 mg/dl (6-20); Glomerular Filtration Rate 126; Phosphorous 1.9 mg/dL (2.7-4.5)
[2019-10-31] MEDS: INSULIN LISPRO 1 UNIT/0.01 ML UNIT SQ SCH ×4 (09:52→20:57)
[2019-10-31] MEDS: DOCUSATE SODIUM 100 MG CAPSULE PO SCH ×2 (09:56→20:49)
--- NOTE | 2019-10-31 10:44 | Internal Med Progress Note ---
Medical - PN: Subj Patient information: Note initiated : 10/31/19 at 10:41 am Service Date, if different from initiated Date: [] Patient: Tarun Molina a 49 y/o M admitted on 10/20/19 for BLOOD SUGAR PROBLEM. Chief Complaint: Follow-up MSSA infections Interval history: 10/20 Mr. Molina is a 49 year old M with a history of diabetes type 2, and high blood pressure who was presented to the ER because he does not feel well for days. Patient is tired and lethargic and a poor historian. As per patient and , patient has not been feeling well for 1 month, but his symptoms have been worsening over the past week. Over the past week he has been having nausea, dizziness, back pain, and dysuria. He has not used diabetic medications for days. In the ER, he was found to have hyperglycemia, 662. 3 L normal saline, 10 units of regular insulin, 1 g of ceftriaxone were given. When I saw this patient in the ER, he felt better. But he still had these symptoms mentioned above. Blood glucose 485. 10/21 When I saw this patient this morning, he was sleeping. He was given Ativan for agitation. Patient has tachycardia and tachypnea White blood cells normalized today, 9.3. Platelet went down to 69 from 107 yesterday Anion gap closed, 14.0 Blood culture showed gram-positive cocci 10/22 Patient slept most the day yesterday after given sedatives. Was agitated last night and given Ativan and a one-time dose of Haldol. This morning attempted to get echocardiogram the patient was agitated and pulling at lines, nurse was able to communicate with him to some degree and patient was following some commands but was not cooperative with exam and thus needed some as needed Ativan to undergo the echo. At this time patient is drowsy. Sodium elevated again today. Increase hypotonic solution. And adjust IV riders to hypotonic solution. Follow-up lactate. 10/23 pt became agitated last night was given Vistaril and eventually needed haldol 2.5mg. drowsy this morning, moans to touch but will not open eyes or verbalize. sodium still high despite d5w. pending repeat lactate. will consult nephro for hypernatremia. unable to gather review of systems given current mental state. was under impression that all IV fluids were adjusted to hypotonic solution, however, the insulin gtt was still running in NS. After adjusting this and additional d5w, his sodium returned to normal. 10/24 Slept most the night. No agitation night. Patient currently sitting up in chair. Tolerated liquid diet yesterday. Mentation significantly improved. Patient does still appear drowsy. Has occasional cough denies shortness of breath. 10/25 In chair eating breakfast. Overall feeling better. No overnight events. 10/26 Continues to feel better day-to-day. Up eating breakfast. No new complaints. Waiting for negative blood cultures before placing PICC and further plans for discharge. 10/27 No overnight events. Occasional cough. No new complaints. Patient unable to cooperate for this final MRI yesterday. Begetting catheter drainage of fluid collection this morning. 10/28 Slept well and no overnight events. Complaining of upper right back discomfort where the fluid collection is. Planning for platelets transfusion and then drainage by radiology with cultures. 10/29 Pain improved after drainage of abscess yesterday, 70 mL of purulent material drained. Culture is growing MSSA as well. Discussed with ID yesterday, will reimage to ensure no reaccumulation, as no drainage catheter left in place. 10/[address] scan shows reaccumulation of fluid collection in the infrascapular region. Patient with worsening pain and swelling in the region of drainage that was done on 10/28. Discussed the case with Dr. Colvin for ID, Dr. Dia in radiology, initially. Dr. Colvin also spoke with Dr. Dawson for surgery, who agreed that open incision and drainage is indicated. Patient realizes he will require further debridement. Earlier in the day, PICC line was attempted to be placed, but failed on 3 occasions, likely will need outpatient PICC at the time of discharge. Platelets low but stable at 61,000, will plan to transfuse prior to the OR tomorrow. 10/31 Having some very soft stools with urgency today, no liquid stools. No abdominal pain. Back seems about the same as far as right sided achy pain. To go to the OR today for I&D of recurrent infrascapular abscess. Platelets being transfused preoperatively (1 unit = a sixpack). - Constitutional Vitals: Vital Signs Temp Pulse Resp BP Pulse Ox 98.1 F 91 H 14 91/51 96 10/31/19 07:13 10/31/19 07:13 10/31/19 07:13 10/31/19 07:13 10/31/19 07:13 Period Temp Pulse Resp BP Sys/Garcia Pulse Ox Last 24 Hr 98.1 F-99.7 F 90-103 12-18 88-112/50-76 96-100 Intake and Output 10/30/19 10/31/19 10/31/19 21:59 05:59 13:59 Intake Total 640 650 Output Total 1325 300 Balance -685 350 Weight 237 lb 3.2 oz Intake & Output: Intake & Output 10/30/19 10/31/19 10/31/19 21:59 05:59 13:59 Intake Total 640 650 Output Total 1325 300 Balance -685 350 Weight 237 lb 3.2 oz Intake: Oral 640 650 Output: Void Amount 925 300 Urine/Stool Mix 400 Other: Meal HS Snack - Pudding Percent of Meal Consumed 100% Feeding Ability Independent Urine Appearance Clear Clear Urine Color Dark Yellow Dark Yellow Urine Odor Strong Strong Exam: General: Sitting up in chair, looks mildly uncomfortable Chest: Clear, unlabored Back: Infra scapular area of swelling appears increased from yesterday, mild to moderate tenderness with fluctuance, no overlying erythema Cardiovascular: Regular, no edema Abdomen: Soft, nontender, active bowel sounds, no guarding Neuro: Alert, oriented x3 Medical - PN: Obj Da - Labs CBC & Chem 7: 10/31/19 04:19 10/31/19 04:19 Labs: Abnormal Lab Results 10/31/19 10/31/19 10/30/19 04:19 04:19 23:59 RBC 2.61 L Hgb 8.6 L Hct 25.7 L Plt Count 64 L Lymph # (Auto) 0.9 L PT 16.0 H INR 1.3 H Sodium Anion Gap BUN 5 L Creatinine 0.5 L Glucose 125 H Uric Acid Calcium 7.2 L Phosphorus 1.9 L GGT 163 H AST 47 H Alkaline Phosphatase 180 H Lactate Dehydrogenase 289 H Albumin 1.7 L Globulin 5.0 H Albumin/Globulin Ratio 0.3 L 10/30/19 10/30/19 10/29/19 04:10 04:10 04:20 RBC 2.64 L Hgb 8.8 L Hct 26.0 L Plt Count 59 L Lymph # (Auto) 1.1 L PT INR Sodium 129 L Anion Gap 7.0 L BUN 3 L 5 L Creatinine 0.4 L 0.5 L Glucose 112 H 352 H Uric Acid 2.4 L Calcium 7.3 L 7.3 L Phosphorus 2.2 L GGT 141 H AST 38 H Alkaline Phosphatase 165 H Lactate Dehydrogenase 343 H Albumin 1.8 L Globulin 4.7 H Albumin/Globulin Ratio 0.4 L 10/29/19 10/28/19 04:20 09:50 RBC 2.83 L Hgb 9.5 L Hct 28.1 L Plt Count 59 L 61 L Lymph # (Auto) 0.9 L PT INR Sodium Anion Gap BUN Creatinine Glucose Uric Acid Calcium Phosphorus GGT AST Alkaline Phosphatase Lactate Dehydrogenase Albumin Globulin Albumin/Globulin Ratio Meds: Medications Acetaminophen (Tylenol) 650 mg PO Q4-6HP PRN; Protocol PRN Reason: Per Pain Protocol/Fever > 101 Last Admin: 10/30/19 21:30 Dose: 650 mg Documented by: Cefazolin Sodium (Ancef) 2 gm IV Q8H [facility] Last Admin: 10/31/19 06:10 Dose: 2 gm Documented by: Dextrose (Dextrose 50%) 50 ml IV UD PRN PRN Reason: Hypoglycemia Dextrose (Dextrose 50%) 0 ml IV UD PRN PRN Reason: Hypoglycemia Diagnostic Test (Pha) (Accu-Chek) 1 each FS [facility] Last Admin: 10/31/19 09:55 Dose: 1 each Documented by: Docusate Sodium (Colace) 100 mg PO BID [facility] Last Admin: 10/31/19 09:56 Dose: Not Given Documented by: Glucose (Insta-Glucose) 15 gm PO PRN PRN PRN Reason: Hypoglycemia Hydromorphone HCl (Dilaudid) 1 mg IV Q4HP PRN; Protocol PRN Reason: Per Pain Protocol Last Admin: 10/31/19 06:30 Dose: 1 mg Documented by: Insulin Glargine (Lantus) 60 unit SQ BID [facility] Last Admin: 10/30/19 21:32 Dose: 60 units Documented by: Insulin Human Lispro (Humalog) 0 unit SQ [facility]; Protocol Last Admin: 10/31/19 09:52 Dose: Not Given Documented by: Labetalol HCl (Trandate) 0 mg IV Q2HP PRN PRN Reason: Hypertension Lorazepam (Ativan) 0.5 mg IV Q6HP PRN PRN Reason: ANXIETY/SEDATION Last Admin: 10/27/19 11:51 Dose: 0.5 mg Documented by: Melatonin (Melatonin 3mg Tablet) 3 mg PO HSP PRN PRN Reason: Insomnia Ondansetron HCl (Zofran) 4 mg IV Q6HP PRN PRN Reason: Nausea And Vomiting Senna (Senokot) 2 tab PO HS [facility] Last Admin: 10/30/19 21:31 Dose: 2 tab Documented by: Sodium Chloride (Saline Flush) 10 ml IV Q8 [facility] Last Admin: 10/31/19 06:09 Dose: 10 ml Documented by: - ABG Interpretation ABG results: 10/20/19 13:12 ABG Methemoglobin 0.3 L VBG pH 7.30 L VBG pCO2 29.0 L VBG pO2 56 H VBG HCO3 14.0 L VBG Total CO2 14.9 L VBG O2 Saturation 73.5 H VBG Base Excess -11.1 L Medical - PN: A/P - Time Spent With Patient Total time spent is greater than 50% in coordination of care (as documented) at patient's floor/unit and/or counseling patient: Greater than 35 minutes - Narrative A/P Narrative: *Right posterior thoracic wall MSSA abscess, extrapulmonary: -Status post percutaneous drainage with recurrent abscess on reimaging 10/30. -Surgical drainage 10/31 *Bacteremia (MSSA): Source control still not completed with recurrent abscess in the back; to OR 10/31 -TTE no vegetations, [facility] as outpatient -Cervical and thoracic MRI without evidence of epidural abscess, osteomyelitis or discitis *UTI (MSSA): *Sepsis: 2/2 above. RESOLVED *Cirrhosis w/thrombocytopenia: has had extensive w/u to determine etiology but likely EtOH. Stable. Platelets given pro-op 10/31 *DM type 2 w/DKA: resolved -Patient not compliant with home medications, A1c 13 *Encephalopathy, metabolic: heavy drinker when he was young, but recently per notes and girlfriend rarely. RESOLVED -CT brain no acute findings -UDS and BAL neg but test done after several days of being in hospital -2/2 sepsis/medications/acute illness/metabolic imbalance -MRI of brain shows pontine lesions, time course and clinical improvement during shifts and sodium not consistent with acute CPM. -Differential for such MRI findings includes malnutrition and alcohol. *lactic acidosis: Resolved *Hypernatremia (corrected sodium on admit was hypernatremic): + iatrogenic with initial fluid resuscitation -has been admitted in past for dehydration -Resolved *LIZ: Resolved *HTN: *Anemia: *Hypophos/kalemia/natremia: improving Plan: -Continue cefazolin -Surgical drainage of back abscess today -Platelet transfusion this am, will consider further platelets if post-op bleeding -Last sets of blood cultures negative greater than 48 hours, will need outpt IR PICC -ARB/HCTZ initially held for LIZ and low BP -Replete electrolytes PRN -Home insulin, SSI -outpt [facility] -ppx: Heparin (hold if PLT<50k)/scd
[2019-10-31] MEDS ORDERED: KETAMINE 10 MG/ML ML ONE (11:00)
[2019-10-31] MEDS ORDERED: PROPOFOL 200 MG/20 ML VIAL IV ONE (11:00)
[2019-10-31] MEDS ORDERED: LIDOCAINE HCL/PF 100 MG/5 ML SYRINGE IV ONE (11:00)
[2019-10-31] MEDS ORDERED: DEXAMETHASONE 10 MG/ML VIAL ONE (11:00)
[2019-10-31] MEDS ORDERED: ONDANSETRON 4 MG/2 ML VIAL ONE (11:00)
[2019-10-31] MEDS ORDERED: LACTATED RINGERS 250 ML IV PRN (11:35)
[2019-10-31] MEDS ORDERED: fentaNYL 100 MCG/2 ML VIAL IV PRN (11:35)
[2019-10-31] MEDS ORDERED: diphenhydrAMINE 50 MG/ML VIAL IV PRN (11:35)
[2019-10-31] MEDS ORDERED: ONDANSETRON 4 MG/2 ML VIAL IV PRN (11:35)
[2019-10-31] MEDS ORDERED: PROMETHAZINE 25 MG/ML VIAL IV PRN (11:35)
[2019-10-31] MEDS ORDERED: NALOXONE HCL 0.4 MG/ML VIAL IV PRN (11:35)
[2019-10-31] MEDS ORDERED: IPRATROPIUM/ALBUTEROL 3 ML AMPUL.NEB NEB PRN (11:35)
[2019-10-31] MEDS ORDERED: MEPERIDINE 25 MG/ML SYRINGE IV PRN (11:35)
[2019-10-31] MEDS ORDERED: LACTATED RINGERS 1,000 ML IV SCH (11:45)
--- NOTE | 2019-10-31 12:38 | Brief Operative Note ---
Date of procedure: 10/31/19 Pre-op diagnosis: right lateral chest wall abscess Post-op diagnosis: same Procedure: Incision and drainage of right lateral chest wall abscess with placement of a 15 Estonian percutaneous drain Grafts/Implants: No Anesthesia: GETA Findings: 200 cc of serosanguineous thin fluid Complications: none Surgeon: Martín Dawson Specimens Removed/Pathology: (fluid for C and S) Condition: stable Disposition: PACU
[2019-10-31] MEDS ORDERED: BUPIVACAINE W/EPI 0.25% 50 ML VIAL IJ ONE (12:56)
[2019-10-31] MEDS: INSULIN GLARGINE, HUMAN 1 UNIT/0.01 ML SQ SCH ×2 (13:30→20:46)
[2019-10-31] MEDS: ACETAMINOPHEN 325 MG TABLET PO PRN (16:51)
[2019-10-31] MEDS: SENNOSIDES 1 TABLET PO SCH (20:49)
[2019-11-01] MEDS: ceFAZolin 1 GM VIAL IV SCH ×3 (06:02→21:31)
[2019-11-01] MEDS: 0.9 % SODIUM CHLORIDE 10 ML SYRINGE IV SCH ×3 (06:02→21:38)
[2019-11-01 06:44] LABS: Calcium 7.3 mg/dl (8.6-10.4); Carbon Dioxide 20 mmol/L (22-30); Chloride 100 mmol/L (96-108); Glomerular Filtration Rate 139; Glucose 327 mg/dL (70-105)
[2019-11-01 06:46] LABS: Basophils # (Auto) 0 K/mcL (0.00-0.30); Basophils % (Auto) 0 % (0.0-2.0); Eosinophils # (Auto) 0 K/mcL (0.00-0.70); Eosinophils % (Auto) 0 % (0.0-7.0); Hematocrit 27.1 % (40.1-51.0); Hemoglobin 8.8 g/dL (13.7-17.5); Lymphocytes # (Auto) 0.69 K/mcL (1.50-4.80); Lymphocytes % (Auto) 15.9 % (15.5-49.0); Mean Cell Volume 98.9 fL (80.0-100.0); Mean Corpuscular HGB Conc 32.5 g/dL (31.0-36.0); Mean Platelet Volume 11.2 fL (7.4-10.4); Monocytes # (Auto) 0.22 K/mcL (0.10-0.90); Monocytes % (Auto) 5.1 % (1.0-12.0); Platelet Count 73 K/mcL (140-440); RBC 2.74 M/mcL (4.63-6.08); Red Cell Distribution Width 13.6 % (11.5-14.5); WBC 4.3 K/mcL (4.50-11.00)
[2019-11-01 06:48] LABS: Blood Urea Nitrogen 9 mg/dl (6-20)
[2019-11-01] MEDS: INSULIN GLARGINE, HUMAN 1 UNIT/0.01 ML SQ SCH ×2 (09:50→21:45)
[2019-11-01] MEDS: INSULIN LISPRO 1 UNIT/0.01 ML UNIT SQ SCH ×4 (09:51→21:44)
[2019-11-01] MEDS: DOCUSATE SODIUM 100 MG CAPSULE PO SCH ×2 (09:51→21:33)
[2019-11-01] MEDS: ACETAMINOPHEN 325 MG TABLET PO PRN ×2 (12:09→21:49)
[2019-11-01] MEDS ORDERED: NEUTRA PHOS 1 PACKET PO ONE (14:11)
--- NOTE | 2019-11-01 16:41 | Internal Med Progress Note ---
Medical - PN: Subj Patient information: Note initiated : 11/01/19 at 4:39 pm Service Date, if different from initiated Date: [] Patient: Tarun Molina a 49 y/o M admitted on 10/20/19 for Blood Sugar Problem, Chest Wall Abscess. Chief Complaint: [] Follow-up MSSA infection Interval history: 10/20 Mr. Molina is a 49 year old M with a history of diabetes type 2, and high blood pressure who was presented to the ER because he does not feel well for days. Patient is tired and lethargic and a poor historian. As per patient and , patient has not been feeling well for 1 month, but his symptoms have been worsening over the past week. Over the past week he has been having nausea, dizziness, back pain, and dysuria. He has not used diabetic medications for days. In the ER, he was found to have hyperglycemia, 662. 3 L normal saline, 10 units of regular insulin, 1 g of ceftriaxone were given. When I saw this patient in the ER, he felt better. But he still had these symptoms mentioned above. Blood glucose 485. 10/21 When I saw this patient this morning, he was sleeping. He was given Ativan for agitation. Patient has tachycardia and tachypnea White blood cells normalized today, 9.3. Platelet went down to 69 from 107 yesterday Anion gap closed, 14.0 Blood culture showed gram-positive cocci 10/22 Patient slept most the day yesterday after given sedatives. Was agitated last night and given Ativan and a one-time dose of Haldol. This morning attempted to get echocardiogram the patient was agitated and pulling at lines, nurse was able to communicate with him to some degree and patient was following some commands but was not cooperative with exam and thus needed some as needed Ativan to undergo the echo. At this time patient is drowsy. Sodium elevated again today. Increase hypotonic solution. And adjust IV riders to hypotonic solution. Follow-up lactate. 10/23 pt became agitated last night was given Vistaril and eventually needed haldol 2.5mg. drowsy this morning, moans to touch but will not open eyes or verbalize. sodium still high despite d5w. pending repeat lactate. will consult nephro for hypernatremia. unable to gather review of systems given current mental state. was under impression that all IV fluids were adjusted to hypotonic solution, however, the insulin gtt was still running in NS. After adjusting this and additional d5w, his sodium returned to normal. 10/24 Slept most the night. No agitation night. Patient currently sitting up in chair. Tolerated liquid diet yesterday. Mentation significantly improved. Patient does still appear drowsy. Has occasional cough denies shortness of breath. 10/25 In chair eating breakfast. Overall feeling better. No overnight events. 10/26 Continues to feel better day-to-day. Up eating breakfast. No new complaints. Waiting for negative blood cultures before placing PICC and further plans for discharge. 10/27 No overnight events. Occasional cough. No new complaints. Patient unable to cooperate for this final MRI yesterday. Begetting catheter drainage of fluid collection this morning. 10/28 Slept well and no overnight events. Complaining of upper right back discomfort where the fluid collection is. Planning for platelets transfusion and then drainage by radiology with cultures. 10/29 Pain improved after drainage of abscess yesterday, 70 mL of purulent material drained. Culture is growing MSSA as well. Discussed with ID yesterday, will reimage to ensure no reaccumulation, as no drainage catheter left in place. 10/[address] scan shows reaccumulation of fluid collection in the infrascapular region. Patient with worsening pain and swelling in the region of drainage that was done on 10/28. Discussed the case with Dr. Colvin for ID, Dr. Dia in radiology, initially. Dr. Colvin also spoke with Dr. Dawson for surgery, who agreed that open incision and drainage is indicated. Patient realizes he will require further debridement. Earlier in the day, PICC line was attempted to be placed, but failed on 3 occasions, likely will need outpatient PICC at the time of discharge. Platelets low but stable at 61,000, will plan to transfuse prior to the OR tomorrow. 10/31 Having some very soft stools with urgency today, no liquid stools. No abdominal pain. Back seems about the same as far as right sided achy pain. To go to the OR today for I&D of recurrent infrascapular abscess. Platelets being transfused preoperatively (1 unit = a sixpack). 11/01/2019 Patient with some discomfort in the right subscapular region site of I&D, more related to the SORIN drain in place. Cultures this afternoon with staph aureus from surgical drainage culture sent yesterday. No fevers no chills. Appetite okay. Platelet count in the 70,000 range, received 1 unit of platelets preop yesterday. - Constitutional Vitals: Vital Signs Temp Pulse Resp BP Pulse Ox 97.8 F 72 12 92/88 94 11/01/19 12:00 11/01/19 12:00 11/01/19 12:00 11/01/19 12:11/01/19 12:00 Period Temp Pulse Resp BP Sys/Garcia Pulse Ox Last 24 Hr 97.7 F-98.5 F 72-96 12-14 92-112/50-88 94-99 Intake and Output 11/01/19 11/01/19 11/01/19 05:59 13:59 21:59 Intake Total 500 400 Output Total 1007 1140 Balance -507 -740 Intake & Output: Intake & Output 11/01/19 11/01/19 11/01/19 05:59 13:59 21:59 Intake Total 500 400 Output Total 1007 1140 Balance -507 -740 Intake: Oral 500 400 Output: Drainage 57 40 Right Back 57 40 Void Amount 950 1100 Other: Urine Appearance Clear Clear Urine Color Bright Yellow Bright Yellow Urine Odor Normal Normal Exam: General: In bed, alert, awake, talkative, nontoxic Chest: Clear, unlabored Cardiovascular: Regular, no edema Abdomen: Obese, soft Back: Clear dressing in place over back, SORIN drain in place with serosanguineous drainage. No fluctuance or swelling. No bony back tenderness. Neuro: Alert, oriented x3, nonfocal Medical - PN: Obj Da - Labs CBC & Chem 7: 11/01/19 04:32 11/01/19 04:32 Labs: Abnormal Lab Results 11/01/19 11/01/19 10/31/19 04:32 04:32 04:19 WBC 4.3 L RBC 2.74 L Hgb 8.8 L Hct 27.1 L Plt Count 73 L MPV 11.2 H Gran % 79.0 H Lymph # (Auto) 0.69 L PT INR Sodium 130 L Carbon Dioxide 20 L BUN 5 L Creatinine 0.4 L 0.5 L Glucose 327 H 125 H Uric Acid Calcium 7.3 L 7.2 L Phosphorus 1.9 L GGT 163 H AST 47 H Alkaline Phosphatase 180 H Lactate Dehydrogenase 289 H Albumin 1.7 L Globulin 5.0 H Albumin/Globulin Ratio 0.3 L 10/31/19 10/30/19 10/30/19 04:19 23:59 04:10 WBC RBC 2.61 L Hgb 8.6 L Hct 25.7 L Plt Count 64 L MPV Gran % Lymph # (Auto) 0.9 L PT 16.0 H INR 1.3 H Sodium Carbon Dioxide BUN 3 L Creatinine 0.4 L Glucose 112 H Uric Acid 2.4 L Calcium 7.3 L Phosphorus 2.2 L GGT 141 H AST 38 H Alkaline Phosphatase 165 H Lactate Dehydrogenase 343 H Albumin 1.8 L Globulin 4.7 H Albumin/Globulin Ratio 0.4 L 10/30/19 04:10 WBC RBC 2.64 L Hgb 8.8 L Hct 26.0 L Plt Count 59 L MPV Gran % Lymph # (Auto) 1.1 L PT INR Sodium Carbon Dioxide BUN Creatinine Glucose Uric Acid Calcium Phosphorus GGT AST Alkaline Phosphatase Lactate Dehydrogenase Albumin Globulin Albumin/Globulin Ratio Microbiology 10/31/19 14:46 Gram Stain - Final Back - Upper Anaerobic Culture - Preliminary Gram Stain - Final Wound Culture - Preliminary Staphylococcus aureus 10/31/19 12:47 Gram Stain - Final Back - Upper Abscess Culture - Final 10/28/19 12:10 Gram Stain - Final Aspirate - Other Body Fluid Culture - Final Staphylococcus aureus 10/25/19 04:35 Blood Culture - Final Blood 10/25/19 04:40 Blood Culture - Final Blood 10/23/19 00:42 Blood Culture - Final Blood Staphylococcus aureus 10/23/19 04:10 Blood Culture - Final Blood 10/21/19 12:38 Blood Culture - Final Blood Staphylococcus aureus 10/21/19 12:23 Blood Culture - Final Blood Staphylococcus aureus 10/20/19 15:43 Blood Culture - Final Blood Staphylococcus aureus 10/20/19 15:48 Blood Culture - Final Blood Staphylococcus aureus 10/20/19 14:26 Urine Culture - Final Urine - Clean Void Mid-Stream Staphylococcus aureus 10/20/19 19:29 MRSA (PCR) - Final Nose Meds: Medications Acetaminophen (Tylenol) 650 mg PO Q4-6HP PRN; Protocol PRN Reason: Per Pain Protocol/Fever > 101 Last Admin: 11/01/19 12:09 Dose: 650 mg Documented by: Cefazolin Sodium (Ancef) 2 gm IV Q8H [facility] Last Admin: 11/01/19 15:05 Dose: 2 gm Documented by: Dextrose (Dextrose 50%) 50 ml IV UD PRN PRN Reason: Hypoglycemia Dextrose (Dextrose 50%) 0 ml IV UD PRN PRN Reason: Hypoglycemia Diagnostic Test (Pha) (Accu-Chek) 1 each FS [facility] Last Admin: 11/01/19 12:08 Dose: 1 each Documented by: Docusate Sodium (Colace) 100 mg PO BID [facility] Last Admin: 11/01/19 09:51 Dose: Not Given Documented by: Glucose (Insta-Glucose) 15 gm PO PRN PRN PRN Reason: Hypoglycemia Hydromorphone HCl (Dilaudid) 1 mg IV Q4HP PRN; Protocol PRN Reason: Per Pain Protocol Last Admin: 10/31/19 13:25 Dose: 1 mg Documented by: Insulin Glargine (Lantus) 60 unit SQ BID [facility] Last Admin: 11/01/19 09:50 Dose: 60 units Documented by: Insulin Human Lispro (Humalog) 0 unit SQ [facility]; Protocol Last Admin: 11/01/19 12:09 Dose: 10 units Documented by: Labetalol HCl (Trandate) 0 mg IV Q2HP PRN PRN Reason: Hypertension Lorazepam (Ativan) 0.5 mg IV Q6HP PRN PRN Reason: ANXIETY/SEDATION Last Admin: 10/27/19 11:51 Dose: 0.5 mg Documented by: Melatonin (Melatonin 3mg Tablet) 3 mg PO HSP PRN PRN Reason: Insomnia Ondansetron HCl (Zofran) 4 mg IV Q6HP PRN PRN Reason: Nausea And Vomiting Potassium/Phosphorus/Sodium (Neutra Phos) 1 packet PO BID [facility] Senna (Senokot) 2 tab PO HS [facility] Last Admin: 10/31/19 20:49 Dose: Not Given Documented by: Sodium Chloride (Saline Flush) 10 ml IV Q8 [facility] Last Admin: 11/01/19 15:05 Dose: 10 ml Documented by: - ABG Interpretation ABG results: 10/20/19 13:12 ABG Methemoglobin 0.3 L VBG pH 7.30 L VBG pCO2 29.0 L VBG pO2 56 H VBG HCO3 14.0 L VBG Total CO2 14.9 L VBG O2 Saturation 73.5 H VBG Base Excess -11.1 L Medical - PN: A/P - Time Spent With Patient Total time spent is greater than 50% in coordination of care (as documented) at patient's floor/unit and/or counseling patient: 25 - 35 minutes - Narrative A/P Narrative: *Right posterior thoracic wall MSSA abscess, extrapulmonary: -Status post percutaneous drainage with recurrent abscess on reimaging 10/30. -Surgical drainage 10/31 *Bacteremia (MSSA): Source control should be completed with I&D of right posteri or chest wall abscess -TTE no vegetations, [facility] as outpatient, scheduled for 11/03 -Cervical and thoracic MRI without evidence of epidural abscess, osteomyelitis or discitis *UTI (MSSA): *Sepsis: 2/2 above. RESOLVED *Cirrhosis w/thrombocytopenia: has had extensive w/u to determine etiology but likely EtOH. Stable. Platelets given pro-op 10/31 *DM type 2 w/DKA: resolved -Patient not compliant with home medications, A1c 13 *Encephalopathy, metabolic: heavy drinker when he was young, but recently per notes and girlfriend rarely. RESOLVED -CT brain no acute findings -UDS and BAL neg but test done after several days of being in hospital -2/2 sepsis/medications/acute illness/metabolic imbalance -MRI of brain shows pontine lesions, time course and clinical improvement during shifts and sodium not consistent with acute CPM. -Differential for such MRI findings includes malnutrition and alcohol. *lactic acidosis: Resolved *Hypernatremia (corrected sodium on admit was hypernatremic): + iatrogenic with initial fluid resuscitation -has been admitted in past for dehydration -Resolved *LIZ: Resolved *HTN: *Anemia: *Hypophos/kalemia/natremia: Plan: -Continue cefazolin -Last sets of blood cultures negative greater than 48 hours, will need outpt IR PICC, scheduled for 1/3 -ARB/HCTZ initially held for LIZ and low BP -Replete electrolytes PRN -Home insulin, SSI -outpt [facility], scheduled for 1/ -Discharge planning for home infusion -ppx: Heparin (hold if PLT<50k)/scd
[2019-11-01] MEDS: SENNOSIDES 1 TABLET PO SCH (21:33)
[2019-11-01] MEDS: NEUTRA PHOS 1 PACKET PO SCH (21:37)
[2019-11-02] MEDS: ceFAZolin 1 GM VIAL IV SCH ×3 (06:04→22:00)
[2019-11-02] MEDS: 0.9 % SODIUM CHLORIDE 10 ML SYRINGE IV SCH ×3 (06:04→22:06)
[2019-11-02 06:36] LABS: Basophils # (Auto) 0.02 K/mcL (0.00-0.30); Basophils % (Auto) 0.4 % (0.0-2.0); Eosinophils % (Auto) 2.1 % (0.0-7.0); Granulocytes % (Auto) 62.9 % (38.0-78.0); Hematocrit 25.5 % (40.1-51.0); Hemoglobin 8.4 g/dL (13.7-17.5); Lymphocytes # (Auto) 1.36 K/mcL (1.50-4.80); Lymphocytes % (Auto) 28.2 % (15.5-49.0); Mean Cell Volume 99.6 fL (80.0-100.0); Mean Corpuscular HGB Conc 32.9 g/dL (31.0-36.0); Mean Platelet Volume 10.2 fL (7.4-10.4); Monocytes # (Auto) 0.31 K/mcL (0.10-0.90); Monocytes % (Auto) 6.4 % (1.0-12.0); Platelet Count 70 K/mcL (140-440); RBC 2.56 M/mcL (4.63-6.08); Red Cell Distribution Width 13.5 % (11.5-14.5); WBC 4.8 K/mcL (4.50-11.00)
[2019-11-02 06:54] LABS: Blood Urea Nitrogen 7 mg/dl (6-20); Calcium 7.4 mg/dl (8.6-10.4); Carbon Dioxide 24 mmol/L (22-30); Chloride 103 mmol/L (96-108); Glucose 137 mg/dL (70-105)
[2019-11-02 06:56] LABS: Glomerular Filtration Rate 156
[2019-11-02] MEDS: INSULIN LISPRO 1 UNIT/0.01 ML UNIT SQ SCH ×4 (07:36→21:59)
[2019-11-02] MEDS: NEUTRA PHOS 1 PACKET PO SCH ×2 (08:03→21:59)
[2019-11-02] MEDS: ACETAMINOPHEN 325 MG TABLET PO PRN ×4 (08:03→21:59)
[2019-11-02] MEDS: INSULIN GLARGINE, HUMAN 1 UNIT/0.01 ML SQ SCH ×2 (08:05→22:00)
[2019-11-02] MEDS: DOCUSATE SODIUM 100 MG CAPSULE PO SCH ×2 (08:06→21:58)
--- NOTE | 2019-11-02 11:36 | Internal Med Progress Note ---
Medical - PN: Subj Patient information: Note initiated : 11/02/19 at 11:34 am Service Date, if different from initiated Date: [] Patient: Tarun Molina a 49 y/o M admitted on 10/20/19 for Blood Sugar Problem, Chest Wall Abscess. Chief Complaint: Follow-up MSSA infection Interval history: 10/20 Mr. Molina is a 49 year old M with a history of diabetes type 2, and high blood pressure who was presented to the ER because he does not feel well for days. Patient is tired and lethargic and a poor historian. As per patient and , patient has not been feeling well for 1 month, but his symptoms have been worsening over the past week. Over the past week he has been having nausea, dizziness, back pain, and dysuria. He has not used diabetic medications for days. In the ER, he was found to have hyperglycemia, 662. 3 L normal saline, 10 units of regular insulin, 1 g of ceftriaxone were given. When I saw this patient in the ER, he felt better. But he still had these symptoms mentioned above. Blood glucose 485. 10/21 When I saw this patient this morning, he was sleeping. He was given Ativan for agitation. Patient has tachycardia and tachypnea White blood cells normalized today, 9.3. Platelet went down to 69 from 107 yesterday Anion gap closed, 14.0 Blood culture showed gram-positive cocci 10/22 Patient slept most the day yesterday after given sedatives. Was agitated last night and given Ativan and a one-time dose of Haldol. This morning attempted to get echocardiogram the patient was agitated and pulling at lines, nurse was able to communicate with him to some degree and patient was following some commands but was not cooperative with exam and thus needed some as needed Ativan to undergo the echo. At this time patient is drowsy. Sodium elevated again today. Increase hypotonic solution. And adjust IV riders to hypotonic solution. Follow-up lactate. 10/23 pt became agitated last night was given Vistaril and eventually needed haldol 2.5mg. drowsy this morning, moans to touch but will not open eyes or verbalize. sodium still high despite d5w. pending repeat lactate. will consult nephro for hypernatremia. unable to gather review of systems given current mental state. was under impression that all IV fluids were adjusted to hypotonic solution, however, the insulin gtt was still running in NS. After adjusting this and additional d5w, his sodium returned to normal. 10/24 Slept most the night. No agitation night. Patient currently sitting up in chair. Tolerated liquid diet yesterday. Mentation significantly improved. Patient does still appear drowsy. Has occasional cough denies shortness of breath. 10/25 In chair eating breakfast. Overall feeling better. No overnight events. 10/26 Continues to feel better day-to-day. Up eating breakfast. No new complaints. Waiting for negative blood cultures before placing PICC and further plans for discharge. 10/27 No overnight events. Occasional cough. No new complaints. Patient unable to cooperate for this final MRI yesterday. Begetting catheter drainage of fluid collection this morning. 10/28 Slept well and no overnight events. Complaining of upper right back discomfort where the fluid collection is. Planning for platelets transfusion and then drainage by radiology with cultures. 10/29 Pain improved after drainage of abscess yesterday, 70 mL of purulent material drained. Culture is growing MSSA as well. Discussed with ID yesterday, will reimage to ensure no reaccumulation, as no drainage catheter left in place. 10/[address] scan shows reaccumulation of fluid collection in the infrascapular region. Patient with worsening pain and swelling in the region of drainage that was done on 10/28. Discussed the case with Dr. Colvin for ID, Dr. Dia in radiology, initially. Dr. Colvin also spoke with Dr. Dawson for surgery, who agreed that open incision and drainage is indicated. Patient realizes he will require further debridement. Earlier in the day, PICC line was attempted to be placed, but failed on 3 occasions, likely will need outpatient PICC at the time of discharge. Platelets low but stable at 61,000, will plan to transfuse prior to the OR tomorrow. 10/31 Having some very soft stools with urgency today, no liquid stools. No abdominal pain. Back seems about the same as far as right sided achy pain. To go to the OR today for I&D of recurrent infrascapular abscess. Platelets being transfused preoperatively (1 unit = a sixpack). 11/01/2019 Patient with some discomfort in the right subscapular region site of I&D, more related to the SORIN drain in place. Cultures this afternoon with staph aureus from surgical drainage culture sent yesterday. No fevers no chills. Appetite okay. Platelet count in the 70,000 range, received 1 unit of platelets preop yesterday. 1/2 Remained stable, some discomfort related to the drain from incision and drainage. No new complaints. Platelet count stable. Anticipate 4 weeks of IV cefazolin, start date 10/25/2019, day of first negative blood cultures. - Constitutional Vitals: Vital Signs Temp Pulse Resp BP Pulse Ox 97.1 F 83 16 107/67 99 11/02/19 08:00 11/02/19 08:00 11/02/19 08:00 11/02/19 08:00 11/02/19 08:00 Period Temp Pulse Resp BP Sys/Garcia Pulse Ox Last 24 Hr 97.1 F-97.8 F 72-83 12-18 85-107/49-88 94-99 Intake and Output 11/01/19 11/02/19 11/02/19 21:59 05:59 13:59 Intake Total 1000 1000 520 Output Total 1140 950 Balance -140 50 520 Weight 246 lb 14.4 oz Intake & Output: Intake & Output 11/01/19 11/02/19 11/02/19 21:59 05:59 13:59 Intake Total 1000 1000 520 Output Total 1140 950 Balance -140 50 520 Weight 246 lb 14.4 oz Intake: Oral 1000 1000 520 Output: Drainage 40 25 Right Back 40 25 Void Amount 1100 925 Other: Meal Dinner Egg salad & crackers Breakfast Percent of Meal Consumed 100% 100% Feeding Ability Independent Urine Appearance Clear Urine Color Dark Yellow Urine Odor Strong Exam: General: Sitting up on edge of bed eating breakfast, looks well Chest: Clear to auscultation Back: Back symmetric, no right infra scapular swelling, no fluctuance. Drain in place with clear surgical dressing. Cardiovascular: Regular Abdomen: Nontender Neuro: Alert, oriented x3, ambulatory Medical - PN: Obj Da - Labs CBC & Chem 7: 11/02/19 05:25 11/02/19 05:25 Labs: Abnormal Lab Results 11/02/19 11/02/19 11/01/19 05:25 05:25 04:32 WBC RBC 2.56 L Hgb 8.4 L Hct 25.5 L Plt Count 70 L MPV Gran % Lymph # (Auto) 1.36 L PT INR Sodium 130 L Carbon Dioxide 20 L BUN Creatinine 0.3 L 0.4 L Glucose 137 H 327 H Calcium 7.4 L 7.3 L Phosphorus GGT AST Alkaline Phosphatase Lactate Dehydrogenase Albumin Globulin Albumin/Globulin Ratio 11/01/19 10/31/19 10/31/19 04:32 04:19 04:19 WBC 4.3 L RBC 2.74 L 2.61 L Hgb 8.8 L 8.6 L Hct 27.1 L 25.7 L Plt Count 73 L 64 L MPV 11.2 H Gran % 79.0 H Lymph # (Auto) 0.69 L 0.9 L PT INR Sodium Carbon Dioxide BUN 5 L Creatinine 0.5 L Glucose 125 H Calcium 7.2 L Phosphorus 1.9 L GGT 163 H AST 47 H Alkaline Phosphatase 180 H Lactate Dehydrogenase 289 H Albumin 1.7 L Globulin 5.0 H Albumin/Globulin Ratio 0.3 L 10/30/19 23:59 WBC RBC Hgb Hct Plt Count MPV Gran % Lymph # (Auto) PT 16.0 H INR 1.3 H Sodium Carbon Dioxide BUN Creatinine Glucose Calcium Phosphorus GGT AST Alkaline Phosphatase Lactate Dehydrogenase Albumin Globulin Albumin/Globulin Ratio Microbiology 10/31/19 12:47 Gram Stain - Final Thoracic Fluid Body Fluid Culture - Final 10/31/19 14:46 Gram Stain - Final Back - Upper Gram Stain - Final Anaerobic Culture - Preliminary Gram Stain - Final Wound Culture - Preliminary Staphylococcus aureus 10/31/19 12:47 Gram Stain - Final Back - Upper Abscess Culture - Final 10/28/19 12:10 Gram Stain - Final Aspirate - Other Body Fluid Culture - Final Staphylococcus aureus 10/25/19 04:35 Blood Culture - Final Blood 10/25/19 04:40 Blood Culture - Final Blood 10/23/19 00:42 Blood Culture - Final Blood Staphylococcus aureus 10/23/19 04:10 Blood Culture - Final Blood 10/21/19 12:38 Blood Culture - Final Blood Staphylococcus aureus 10/21/19 12:23 Blood Culture - Final Blood Staphylococcus aureus 10/20/19 15:43 Blood Culture - Final Blood Staphylococcus aureus 10/20/19 15:48 Blood Culture - Final Blood Staphylococcus aureus 10/20/19 14:26 Urine Culture - Final Urine - Clean Void Mid-Stream Staphylococcus aureus 10/20/19 19:29 MRSA (PCR) - Final Nose Meds: Medications Acetaminophen (Tylenol) 650 mg PO Q4-6HP PRN; Protocol PRN Reason: Per Pain Protocol/Fever > 101 Last Admin: 11/02/19 08:03 Dose: 650 mg Documented by: Cefazolin Sodium (Ancef) 2 gm IV Q8H [facility] Last Admin: 11/02/19 06:04 Dose: 2 gm Documented by: Dextrose (Dextrose 50%) 50 ml IV UD PRN PRN Reason: Hypoglycemia Dextrose (Dextrose 50%) 0 ml IV UD PRN PRN Reason: Hypoglycemia Diagnostic Test (Pha) (Accu-Chek) 1 each FS [facility] Last Admin: 11/02/19 07:35 Dose: 1 each Documented by: Docusate Sodium (Colace) 100 mg PO BID [facility] Last Admin: 11/02/19 08:06 Dose: Not Given Documented by: Glucose (Insta-Glucose) 15 gm PO PRN PRN PRN Reason: Hypoglycemia Hydromorphone HCl (Dilaudid) 1 mg IV Q4HP PRN; Protocol PRN Reason: Per Pain Protocol Last Admin: 10/31/19 13:25 Dose: 1 mg Documented by: Insulin Glargine (Lantus) 60 unit SQ BID [facility] Last Admin: 11/02/19 08:05 Dose: 60 units Documented by: Insulin Human Lispro (Humalog) 0 unit SQ [facility]; Protocol Last Admin: 11/02/19 07:36 Dose: 2 units Documented by: Labetalol HCl (Trandate) 0 mg IV Q2HP PRN PRN Reason: Hypertension Lorazepam (Ativan) 0.5 mg IV Q6HP PRN PRN Reason: ANXIETY/SEDATION Last Admin: 10/27/19 11:51 Dose: 0.5 mg Documented by: Melatonin (Melatonin 3mg Tablet) 3 mg PO HSP PRN PRN Reason: Insomnia Last Admin: 11/01/19 21:49 Dose: 3 mg Documented by: Ondansetron HCl (Zofran) 4 mg IV Q6HP PRN PRN Reason: Nausea And Vomiting Potassium/Phosphorus/Sodium (Neutra Phos) 1 packet PO BID [facility] Last Admin: 11/02/19 08:03 Dose: 1 packet Documented by: Senna (Senokot) 2 tab PO [facility] Last Admin: 11/01/19 21:33 Dose: Not Given Documented by: Sodium Chloride (Saline Flush) 10 ml IV Q8 [facility] Last Admin: 11/02/19 06:04 Dose: 10 ml Documented by: - ABG Interpretation ABG results: 10/20/19 13:12 ABG Methemoglobin 0.3 L VBG pH 7.30 L VBG pCO2 29.0 L VBG pO2 56 H VBG HCO3 14.0 L VBG Total CO2 14.9 L VBG O2 Saturation 73.5 H VBG Base Excess -11.1 L Medical - PN: A/P - Time Spent With Patient Total time spent is greater than 50% in coordination of care (as documented) at patient's floor/unit and/or counseling patient: 25 - 35 minutes - Narrative A/P Narrative: *Right posterior thoracic wall MSSA abscess, extrapulmonary: -Status post percutaneous drainage 10/28 with recurrent abscess on reimaging 10/30. -Surgical drainage 10/31 *Bacteremia (MSSA): Source control should be completed with I&D of right posterior chest wall abscess -TTE no vegetations, [facility] as outpatient, scheduled for 11/03 -Cervical and thoracic MRI without evidence of epidural abscess, osteomyelitis or discitis -Will require outpatient PIC by interventional radiology, placement here attempted x3. Scheduled for 11/03 at [facility] *UTI (MSSA): *Sepsis: 2/2 above. RESOLVED *Cirrhosis w/thrombocytopenia: has had extensive w/u to determine etiology but likely EtOH. Stable. Platelets given pro-op 10/31 *DM type 2 w/DKA: resolved -Patient not compliant with home medications, A1c 13 *Encephalopathy, metabolic: heavy drinker when he was young, but recently per notes and girlfriend rarely. RESOLVED -CT brain no acute findings -UDS and BAL neg but test done after several days of being in hospital -2/2 sepsis/medications/acute illness/metabolic imbalance -MRI of brain shows pontine lesions, time course and clinical improvement dur ing shifts and sodium not consistent with acute CPM. -Differential for such MRI findings includes malnutrition and alcohol. *lactic acidosis: Resolved *Hypernatremia (corrected sodium on admit was hypernatremic): + iatrogenic with initial fluid resuscitation -has been admitted in past for dehydration -Resolved *LIZ: Resolved *HTN: *Anemia: *Hypophos/kalemia/natremia: Plan: -Continue cefazolin -Anticipate discharge 11/03 with outpatient appointments for PICC line and [facility] at [facility] -Follow-up with infectious disease 2 weeks following discharge -Last sets of blood cultures negative greater than 48 hours, outpt IR PICC, scheduled for 1/3 -ARB/HCTZ initially held for LIZ and low BP -Replete electrolytes PRN -Home insulin, SSI -outpt [facility], scheduled for 1 -Discharge planning for home infusion -ppx: Heparin (hold if PLT<50k)/scd
--- NOTE | 2019-11-02 12:47 | Internal Med Progress Note ---
Medical - PN: Subj Patient information: Note initiated : 11/02/19 at 12:45 pm Service Date, if different from initiated Date: [] Patient: Tarnu Molina a 49 y/o M admitted on 10/20/19 for Blood Sugar Problem, Chest Wall Abscess. Chief Complaint: [] Interval history: 10/20 Mr. Molina is a 49 year old M with a history of diabetes type 2, and high blood pressure who was presented to the ER because he does not feel well for days. Patient is tired and lethargic and a poor historian. As per patient and , patient has not been feeling well for 1 month, but his symptoms have been worsening over the past week. Over the past week he has been having nausea, dizziness, back pain, and dysuria. He has not used diabetic medications for days. In the ER, he was found to have hyperglycemia, 662. 3 L normal saline, 10 units of regular insulin, 1 g of ceftriaxone were given. When I saw this patient in the ER, he felt better. But he still had these symptoms mentioned above. Blood glucose 485. 10/21 When I saw this patient this morning, he was sleeping. He was given Ativan for agitation. Patient has tachycardia and tachypnea White blood cells normalized today, 9.3. Platelet went down to 69 from 107 yesterday Anion gap closed, 14.0 Blood culture showed gram-positive cocci 10/22 Patient slept most the day yesterday after given sedatives. Was agitated last night and given Ativan and a one-time dose of Haldol. This morning attempted to get echocardiogram the patient was agitated and pulling at lines, nurse was able to communicate with him to some degree and patient was following some commands but was not cooperative with exam and thus needed some as needed Ativan to undergo the echo. At this time patient is drowsy. Sodium elevated again today. Increase hypotonic solution. And adjust IV riders to hypotonic solution. Follow-up lactate. 10/23 pt became agitated last night was given Vistaril and eventually needed haldol 2.5mg. drowsy this morning, moans to touch but will not open eyes or verbalize. sodium still high despite d5w. pending repeat lactate. will consult nephro for hypernatremia. unable to gather review of systems given current mental state. was under impression that all IV fluids were adjusted to hypotonic solution, however, the insulin gtt was still running in NS. After adjusting this and additional d5w, his sodium returned to normal. 10/24 Slept most the night. No agitation night. Patient currently sitting up in chair. Tolerated liquid diet yesterday. Mentation significantly improved. Patient does still appear drowsy. Has occasional cough denies shortness of breath. 10/25 In chair eating breakfast. Overall feeling better. No overnight events. 10/26 Continues to feel better day-to-day. Up eating breakfast. No new complaints. Waiting for negative blood cultures before placing PICC and further plans for discharge. 10/27 No overnight events. Occasional cough. No new complaints. Patient unable to cooperate for this final MRI yesterday. Begetting catheter drainage of fluid collection this morning. 10/28 Slept well and no overnight events. Complaining of upper right back discomfort where the fluid collection is. Planning for platelets transfusion and then drainage by radiology with cultures. 10/29 Pain improved after drainage of abscess yesterday, 70 mL of purulent material drained. Culture is growing MSSA as well. Discussed with ID yesterday, will reimage to ensure no reaccumulation, as no drainage catheter left in place. 10/[address] scan shows reaccumulation of fluid collection in the infrascapular region. Patient with worsening pain and swelling in the region of drainage that was done on 10/28. Discussed the case with Dr. Colvin for ID, Dr. Dia in radiology, initially. Dr. Colvin also spoke with Dr. Dawson for surgery, who agreed that open incision and drainage is indicated. Patient realizes he will require further debridement. Earlier in the day, PICC line was attempted to be placed, but failed on 3 occasions, likely will need outpatient PICC at the time of discharge. Platelets low but stable at 61,000, will plan to transfuse prior to the OR tomorrow. 10/31 Having some very soft stools with urgency today, no liquid stools. No abdominal pain. Back seems about the same as far as right sided achy pain. To go to the OR today for I&D of recurrent infrascapular abscess. Platelets being transfused preoperatively (1 unit = a sixpack). 11/01/2019 Patient with some discomfort in the right subscapular region site of I&D, more related to the SORIN drain in place. Cultures this afternoon with staph aureus from surgical drainage culture sent yesterday. No fevers no chills. Appetite okay. Platelet count in the 70,000 range, received 1 unit of platelets preop yesterday. 1/2 Remained stable, some discomfort related to the drain from incision and drainage. No new complaints. Platelet count stable. Anticipate 4 weeks of IV cefazolin, start date 10/25/2019, day of first negative blood cultures. - Constitutional Vitals: Vital Signs Temp Pulse Resp BP Pulse Ox 97.1 F 83 16 107/67 99 11/02/19 08:00 11/02/19 08:00 11/02/19 08:00 11/02/19 08:00 11/02/19 08:00 Period Temp Pulse Resp BP Sys/Garcia Pulse Ox Last 24 Hr 97.1 F-97.8 F 75-83 12-18 85-107/49-67 96-99 Intake and Output 11/01/19 11/02/19 11/02/19 21:59 05:59 13:59 Intake Total 1000 1000 520 Output Total 1140 950 Balance -140 50 520 Weight 111.992 kg Intake & Output: Intake & Output 11/01/19 11/02/19 11/02/19 21:59 05:59 13:59 Intake Total 1000 1000 520 Output Total 1140 950 Balance -140 50 520 Weight 111.992 kg Intake: Oral 1000 1000 520 Output: Drainage 40 25 Right Back 40 25 Void Amount 1100 925 Other: Meal Dinner Egg salad & crackers Breakfast Percent of Meal Consumed 100% 100% Feeding Ability Independent Urine Appearance Clear Urine Color Dark Yellow Urine Odor Strong Exam: General: Awake and alert, No acute Distress Eyes/N/T: EOMI, Head/Neck: neck supple, CV: RRR, 1/6 SM, Pulm: Clear b/l, no wheezing/rhonchi/rales Abd: soft, nondistended and nontender, +BS x4 Ext: no clubbing/cyanosis, 1+ b/l LE edema Neuro: Awake and alert, no focal deficits, moves all extremities spontaneously Back: Right posterior thoracic wall fluid collection Skin: warm/dry Medical - PN: Obj Da - Labs CBC & Chem 7: 11/02/19 05:25 11/02/19 05:25 Labs: Abnormal Lab Results 11/02/19 11/02/19 11/01/19 05:25 05:25 04:32 WBC RBC 2.56 L Hgb 8.4 L Hct 25.5 L Plt Count 70 L MPV Gran % Lymph # (Auto) 1.36 L PT INR Sodium 130 L Carbon Dioxide 20 L BUN Creatinine 0.3 L 0.4 L Glucose 137 H 327 H Calcium 7.4 L 7.3 L Phosphorus GGT AST Alkaline Phosphatase Lactate Dehydrogenase Albumin Globulin Albumin/Globulin Ratio 11/01/19 10/31/19 10/31/19 04:32 04:19 04:19 WBC 4.3 L RBC 2.74 L 2.61 L Hgb 8.8 L 8.6 L Hct 27.1 L 25.7 L Plt Count 73 L 64 L MPV 11.2 H Gran % 79.0 H Lymph # (Auto) 0.69 L 0.9 L PT INR Sodium Carbon Dioxide BUN 5 L Creatinine 0.5 L Glucose 125 H Calcium 7.2 L Phosphorus 1.9 L GGT 163 H AST 47 H Alkaline Phosphatase 180 H Lactate Dehydrogenase 289 H Albumin 1.7 L Globulin 5.0 H Albumin/Globulin Ratio 0.3 L 10/30/19 23:59 WBC RBC Hgb Hct Plt Count MPV Gran % Lymph # (Auto) PT 16.0 H INR 1.3 H Sodium Carbon Dioxide BUN Creatinine Glucose Calcium Phosphorus GGT AST Alkaline Phosphatase Lactate Dehydrogenase Albumin Globulin Albumin/Globulin Ratio Meds: Medications Acetaminophen (Tylenol) 650 mg PO Q4-6HP PRN; Protocol PRN Reason: Per Pain Protocol/Fever > 101 Last Admin: 11/02/19 12:03 Dose: 650 mg Documented by: Cefazolin Sodium (Ancef) 2 gm IV Q8H [facility] Last Admin: 11/02/19 06:04 Dose: 2 gm Documented by: Dextrose (Dextrose 50%) 50 ml IV UD PRN PRN Reason: Hypoglycemia Dextrose (Dextrose 50%) 0 ml IV UD PRN PRN Reason: Hypoglycemia Diagnostic Test (Pha) (Accu-Chek) 1 each FS ACHS [facility] Last Admin: 11/02/19 11:57 Dose: 1 each Documented by: Docusate Sodium (Colace) 100 mg PO BID [facility] Last Admin: 11/02/19 08:06 Dose: Not Given Documented by: Glucose (Insta-Glucose) 15 gm PO PRN PRN PRN Reason: Hypoglycemia Hydromorphone HCl (Dilaudid) 1 mg IV Q4HP PRN; Protocol PRN Reason: Per Pain Protocol Last Admin: 10/31/19 13:25 Dose: 1 mg Documented by: Insulin Glargine (Lantus) 60 unit SQ BID [facility] Last Admin: 11/02/19 08:05 Dose: 60 units Documented by: Insulin Human Lispro (Humalog) 0 unit SQ ACHS [facility]; Protocol Last Admin: 11/02/19 11:57 Dose: 2 units Documented by: Labetalol HCl (Trandate) 0 mg IV Q2HP PRN PRN Reason: Hypertension Lorazepam (Ativan) 0.5 mg IV Q6HP PRN PRN Reason: ANXIETY/SEDATION Last Admin: 10/27/19 11:51 Dose: 0.5 mg Documented by: Melatonin (Melatonin 3mg Tablet) 3 mg PO HSP PRN PRN Reason: Insomnia Last Admin: 11/01/19 21:49 Dose: 3 mg Documented by: Ondansetron HCl (Zofran) 4 mg IV Q6HP PRN PRN Reason: Nausea And Vomiting Potassium/Phosphorus/Sodium (Neutra Phos) 1 packet PO BID [facility] Last Admin: 11/02/19 08:03 Dose: 1 packet Documented by: Constance (Senokot) 2 tab PO HS [facility] Last Admin: 11/01/19 21:33 Dose: Not Given Documented by: Sodium Chloride (Saline Flush) 10 ml IV Q8 [facility] Last Admin: 11/02/19 06:04 Dose: 10 ml Documented by: - ABG Interpretation ABG results: 10/20/19 13:12 ABG Methemoglobin 0.3 L VBG pH 7.30 L VBG pCO2 29.0 L VBG pO2 56 H VBG HCO3 14.0 L VBG Total CO2 14.9 L VBG O2 Saturation 73.5 H VBG Base Excess -11.1 L Medical - PN: A/P - Time Spent With Patient Total time spent is greater than 50% in coordination of care (as documented) at patient's floor/unit and/or counseling patient: - Narrative A/P Narrative: Assessment: *Right posterior thoracic wall MSSA Abscess: s/p I&D 10/28 *Bacteremia (MSSA): -TTE no vegetations *UTI (MSSA): *Sepsis: 2/2 above. RESOLVED *DM type 2 w/DKA: resolved -Patient not compliant with home medications, A1c 13 *Encephalopathy, metabolic: heavy drinker when he was young, but recently per notes and girlfriend rarely. RESOLVED -CT brain no acute findings -UDS and BAL neg but test done after several days of being in hospital -2/2 sepsis/medications/acute illness/metabolic imbalance *lactic acidosis: Resolved *Hypernatremia (corrected sodium on admit was hypernatremic): + iatrogenic with initial fluid resuscitation -has been admitted in past for dehydration -Resolved *LIZ: Resolved *Cirrhosis w/thrombocytopenia: has had extensive w/u to determine etiology but likely etoh *HTN: *Anemia: *Hypophos/kalemia/natremia: improving Plan: -Continue cefazolin -Anticipate discharge 11/03 with outpatient appointments for PICC line and [facility] -Follow-up with infectious disease 2 weeks following discharge -Last sets of blood cultures negative greater than 48 hours, outpt IR PICC, scheduled for 1/3 -ARB/HCTZ initially held for LIZ and low BP -Replete electrolytes PRN -Home insulin, SSI -outpt [facility], scheduled for 1/3 -Discharge planning for home infusion -ppx: Heparin (hold if PLT<50k)/scd CODE STATUS: Full
--- NOTE | 2019-11-02 13:33 | Discharge Summary ---
Medical - DS: Prov Patient information: Note initiated : 11/02/19 at 1:31 pm Service Date, if different from initiated Date: [] Patient: Tarun Molina 49 y/o M admitted on 10/20/19 for Blood Sugar Problem, Chest Wall Abscess. Chief Complaint: [] Date of admission: 10/20/19 19:23 Discharge date: 11/03/19 Consults: 10/21/19 07:09 Consult to Physician [CONS] Routine Comment: Consulting Provider: Merari Holguin Reason For Exam: Physician to Consult 10/21/19 15:28 Consult to Physician [CONS] Routine Comment: staph bacteremia Consulting Provider: Jaison Colvin Reason For Exam: Physician to Consult 10/23/19 07:32 Consult to Physician [CONS] Routine Comment: hypernatremia Consulting Provider: Tati Armstrong Reason For Exam: Physician to Consult 10/26/19 14:01 Consult to Physician [CONS] Routine Comment: possible abscess, ?I&D Consulting Provider: Stefano Causey Reason For Exam: Physician to Consult 10/27/19 14:03 Consult to Physician [CONS] Routine Comment: sodium imbal Consulting Provider: Tarun Mendoza Reason For Exam: Physician to Consult Medical - DS: Meds - Discharge Medications Prescriptions: ceFAZolin [Ancef] 2 gm IV Q8H 21 Days vial Prescription Printed Active and Home Medications: Home Medications Insulin Glargine,Hum.rec.anlog [Lantus Solostar] 52 unit SQ BID 10/20/19 [History Confirmed 10/23/19 Last Taken Unknown] Insulin Lispro [Humalog] See Protocol SQ QID 10/20/19 [History Confirmed 10/23/19 Last Taken Unknown] Losartan/Hydrochlorothiazide [Losartan-Hctz 100-25 mg Tab] 100 mg PO DAILY 10/20/19 [History Confirmed 10/20/19 Last Taken Unknown] Acetaminophen W/Codeine #3 [Tylenol #3] 1 tab PO Q4-6HP PRN 10/22/19 [History Confirmed 10/22/19 Last Taken Unknown] ceFAZolin [Ancef] 2 gm IV Q8H 21 Days vial 11/02/19 [Rx Last Taken Unknown] Medical - DS: Hosp Hospital Course: Assessment: *Right posterior thoracic wall MSSA Abscess: s/p I&D 10/28 *Bacteremia (MSSA): -TTE no vegetations *UTI (MSSA): *Sepsis: 2/2 above. *DM type 2 w/DKA: resolved - A1c 13 *Encephalopathy, metabolic: heavy drinker when he was young, but recently per notes and girlfriend rarely. RESOLVED -CT brain no acute findings -UDS and BAL neg but test done after several days of being in hospital -2/2 sepsis/medications/acute illness/metabolic imbalance *lactic acidosis: Resolved *Hypernatremia (corrected sodium on admit was hypernatremic): *LIZ: Resolved *Cirrhosis w/thrombocytopenia: has had extensive w/u to determine etiology but likely etoh *HTN: *Anemia: *Hypophos/kalemia/natremia: 10/20 Mr. Molina is a 49 year old M with a history of diabetes type 2, and high blood pressure who was presented to the ER because he does not feel well for days. Patient is tired and lethargic and a poor historian. As per patient and , patient has not been feeling well for 1 month, but his symptoms have been worsening over the past week. Over the past week he has been having nausea, dizziness, back pain, and dysuria. He has not used diabetic medications for days. In the ER, he was found to have hyperglycemia, 662. 3 L normal saline, 10 units of regular insulin, 1 g of ceftriaxone were given. When I saw this patient in the ER, he felt better. But he still had these symptoms mentioned above. Blood glucose 485. 10/21 When I saw this patient this morning, he was sleeping. He was given Ativan for agitation. Patient has tachycardia and tachypnea White blood cells normalized today, 9.3. Platelet went down to 69 from 107 yesterday Anion gap closed, 14.0 Blood culture showed gram-positive cocci 10/22 Patient slept most the day yesterday after given sedatives. Was agitated last night and given Ativan and a one-time dose of Haldol. This morning attempted to get echocardiogram the patient was agitated and pulling at lines, nurse was able to communicate with him to some degree and patient was following some commands but was not cooperative with exam and thus needed some as needed Ativan to undergo the echo. At this time patient is drowsy. Sodium elevated again today. Increase hypotonic solution. And adjust IV riders to hypotonic solution. Follow-up lactate. 10/23 pt became agitated last night was given Vistaril and eventually needed haldol 2.5mg. drowsy this morning, moans to touch but will not open eyes or verbalize. sodium still high despite d5w. pending repeat lactate. will consult nephro for hypernatremia. unable to gather review of systems given current mental state. was under impression that all IV fluids were adjusted to hypotonic solution, however, the insulin gtt was still running in NS. After adjusting this and additional d5w, his sodium returned to normal. 10/24 Slept most the night. No agitation night. Patient currently sitting up in chair. Tolerated liquid diet yesterday. Mentation significantly improved. Patient does still appear drowsy. Has occasional cough denies shortness of breath. 10/25 In chair eating breakfast. Overall feeling better. No overnight events. 10/26 Continues to feel better day-to-day. Up eating breakfast. No new complaints. Waiting for negative blood cultures before placing PICC and further plans for discharge. 10/27 No overnight events. Occasional cough. No new complaints. Patient unable to cooperate for this final MRI yesterday. Begetting catheter drainage of fluid collection this morning. 10/28 Slept well and no overnight events. Complaining of upper right back discomfort where the fluid collection is. Planning for platelets transfusion and then drainage by radiology with cultures. 10/29 Pain improved after drainage of abscess yesterday, 70 mL of purulent material drained. Culture is growing MSSA as well. Discussed with ID yesterday, will reimage to ensure no reaccumulation, as no drainage catheter left in place. 10/[address] scan shows reaccumulation of fluid collection in the infrascapular region. Patient with worsening pain and swelling in the region of drainage that was done on 10/28. Discussed the case with Dr. Colvin for ID, Dr. Dia in radiology, initially. Dr. Colvin also spoke with Dr. Dawson for surgery, who agreed that open incision and drainage is indicated. Patient realizes he will require further debridement. Earlier in the day, PICC line was attempted to be placed, but failed on 3 occasions, likely will need outpatient PICC at the time of discharge. Platelets low but stable at 61,000, will plan to transfuse prior to the OR tomorrow. 10/31 Having some very soft stools with urgency today, no liquid stools. No abdominal pain. Back seems about the same as far as right sided achy pain. To go to the OR today for I&D of recurrent infrascapular abscess. Platelets being transfused preoperatively (1 unit = a sixpack). 11/01/2019 Patient with some discomfort in the right subscapular region site of I&D, more related to the SORIN drain in place. Cultures this afternoon with staph aureus from surgical drainage culture sent yesterday. No fevers no chills. Appetite okay. Platelet count in the 70,000 range, received 1 unit of platelets preop yesterday. 11/02 Remained stable, some discomfort related to the drain from incision and drainage. No new complaints. Platelet count stable. Anticipate 4 weeks of IV cefazolin, start date 10/25/2019, day of first negative blood cultures. 11/03 No overnight events. Outpatient procedures scheduled and patient will go to [facility] for PICC line and [place]. Stable for discharge Discharge diagnosis: Thoracic wall abscess MSSA bacteremia and UTI sepsis Secondary discharge diagnosis: Diabetes nephropathy lactic acidosis hypernatremia acute kidney injury cirrhosis hypertension anemia electrolyte abnormalities - Time Spent with Patient Total time spent providing and/or coordinating discharge services: Greater than 30 minutes Medical - DS: Exam - Constitutional Vitals: Vital Signs Temp Pulse Resp BP BP Pulse Ox 11/02/19 08:00 97.1 F 83 16 107/67 99 11/02/19 07:30 83 16 99 11/02/19 04:20 97.7 F 75 16 88/52 97 11/01/19 22:57 97.4 F 80 16 90/51 99 11/01/19 18:45 97.6 F 78 18 85/49 96 11/01/19 16:00 97.8 F 83 12 107/62 98 Intake and Output 11/01/19 11/02/19 11/02/19 21:59 05:59 13:59 Intake Total 1000 1000 520 Output Total 1140 950 Balance -140 50 520 Intake: Oral 1000 1000 520 Output: Drainage 40 25 Right Back 40 25 Void Amount 1100 925 Other: Meal Dinner Egg salad & crackers Breakfast Percent of Meal Consumed 100% 100% Feeding Ability Independent Urine Appearance Clear Urine Color Dark Yellow Urine Odor Strong Weight 111.992 kg Medical - DS: Data Labs on day of discharge: Labs from last 24 hours 11/02/19 11/02/19 05:25 05:25 WBC 4.8 RBC 2.56 L Hgb 8.4 L Hct 25.5 L MCV 99.6 MCH 32.8 MCHC 32.9 RDW 13.5 Plt Count 70 L MPV 10.2 Gran % 62.9 Lymph % (Auto) 28.2 Maverick % (Auto) 6.4 Eos % (Auto) 2.1 Baso % (Auto) 0.4 Gran # 3.04 Lymph # (Auto) 1.36 L Maverick # (Auto) 0.31 Eos # (Auto) 0.10 Baso # (Auto) 0.02 Sodium 135 Potassium 3.3 Chloride 103 Carbon Dioxide 24 Anion Gap 8.0 BUN 7 Creatinine 0.3 L GFR Calculation 156 Glucose 137 H Calcium 7.4 L Preliminary micro results at discharge 10/31/19 14:46 Anaerobic Culture - Preliminary Back - Upper Medical - DS: A/P - Patient/Caregiver Discharge Instructions Activity: increase activity as tolerated Diet: Consistent Carbohydrate Additional Instructions: Discharge Instructions: You will need to check into outpatient registration at [place] at 11:45 am. You will get a PICC placed and then get your transesophageal echo done. You will need to come back to [facility] outpatient (Day Surgery/Same Stay Specialty Unit) when you have finished with your echo. We have scheduled you for a 5:00 pm appointment daily for the CADD pump antibiotics to be changed to start WednesdayNovember 03. Monitor blood pressure daily, keep log and bring to Primary Care Physician follow up appointment. Losartan/HCTZ stopped for low blood pressure and has not needed it during hospitalization. Increase activity as tolerated. Consistent carbohydrate diet as tolerated. Prescriptions: ceFAZolin [Ancef] 2 gm IV Q8H 21 Days vial Prescription Printed Other Amb Orders: Outpatient PICC Care Location: None Selected Basic Metabolic Panel Location: None Selected C-Reactive Protein Location: None Selected Complete Blood Count Location: None Selected Erythrocyte Sedimentation Rate Location: None Selected - Follow up Plan Follow up with: Jaison Colvin MD [Physician] - 11/16/19 4:00 pm Martín Dawson MD [Physician] - Disposition: Home, Self-Care Care Plan Goals: This discharge packet is provided to you to help keep you informed about your care. We want to ensure you get everything you need when you go home. You will also be receiving a call from us in a few days to follow up with you and see how you are doing since your discharge. This gives us a chance to listen to any concerns you maybe experiencing since you were discharged or any additional needs you may have, as well as providing us feedback on your care experience. We strive to always provide excellent care and thank you for your feedback and for choosing [facility]. Prognosis: Fair Rehab Potential: Fair Overall status at discharge: patient is progressing back to baseline
--- NOTE | 2019-11-02 15:30 | Infectious Disease Prog Note ---
Subjective Patient information: Note initiated : 11/02/19 at 3:12 pm Service Date, if different from initiated Date: [] Patient: Tarun Molina 49 y/o M admitted on 10/20/19 for Blood Sugar Problem, Chest Wall Abscess. Chief Complaint: [] Principal diagnosis: DKA Interval history: Pt overall feeling better. Endorses some right scapular pain but feels it is of less intensity of what it was prior to surgery. Denied any fever, chills, n/v/diarrhea. Discussed plans for PICC line and [facility] tomorrow at [facility]. Objective Objective Narrative: ao x3, in nad no thrush chest cta with decreased BS at bases s1 s2 normal bs ++ nttd Rt scapular area: minimally swollen compared to last visit, has minimal tenderness over the area. Single 15 Fr drain with sero-sanguineous drainage. - Vital Signs Vital signs: Vital Signs Temp Pulse Resp BP BP Pulse Ox 11/02/19 12:00 36.4 C 87 16 101/61 100 11/02/19 08:00 36.2 C 83 16 107/67 99 11/02/19 07:30 83 16 99 11/02/19 04:20 36.5 C 75 16 88/52 97 11/01/19 22:57 36.3 C 80 16 90/51 99 11/01/19 18:45 36.4 C 78 18 85/49 96 11/01/19 16:00 36.6 C 83 12 107/62 98 Intake and Output 11/02/19 11/02/19 11/02/19 05:59 13:59 21:59 Intake Total 1000 760 Output Total 950 Balance 50 760 Intake: Oral 1000 760 Output: Drainage 25 Right Back 25 Void Amount 925 Other: Meal Egg salad & crackers Lunch Percent of Meal Consumed 100% 100% Feeding Ability Independent Independent Urine Appearance Clear Urine Color Dark Yellow Urine Odor Strong Weight 111.992 kg Intake & Output: Intake & Output 11/02/19 11/02/19 11/02/19 05:59 13:59 21:59 Intake Total 1000 760 Output Total 950 Balance 50 760 Weight 111.992 kg Intake: Oral 1000 760 Output: Drainage 25 Right Back 25 Void Amount 925 Other: Meal Egg salad & crackers Lunch Percent of Meal Consumed 100% 100% Feeding Ability Independent Independent Urine Appearance Clear Urine Color Dark Yellow Urine Odor Strong - Lab 11/02/19 05:25 11/02/19 05:25 Most recent lab results Calcium 7.4 mg/dl (8.6-10.4) L 11/02/19 05:25 Phosphorus 1.9 mg/dL (2.7-4.5) L 10/31/19 04:19 Magnesium 1.7 mg/dL (1.6-2.5) 10/31/19 04:19 Microbiology 10/31/19 14:46 Back - Upper Gram Stain - Final 10/31/19 14:46 Back - Upper Gram Stain - Final 10/31/19 14:46 Back - Upper Anaerobic Culture - Preliminary 10/31/19 14:46 Back - Upper Gram Stain - Final 10/31/19 14:46 Back - Upper Wound Culture - Final Staphylococcus aureus 10/31/19 12:47 Thoracic Fluid Gram Stain - Final 10/31/19 12:47 Thoracic Fluid Body Fluid Culture - Final 10/31/19 12:47 Back - Upper Gram Stain - Final 10/31/19 12:47 Back - Upper Abscess Culture - Final 10/28/19 12:10 Aspirate - Other Gram Stain - Final 10/28/19 12:10 Aspirate - Other Body Fluid Culture - Final Staphylococcus aureus 10/25/19 04:35 Blood Blood Culture - Final 10/25/19 04:40 Blood Blood Culture - Final 10/23/19 00:42 Blood Blood Culture - Final Staphylococcus aureus 10/23/19 04:10 Blood Blood Culture - Final 10/21/19 12:38 Blood Blood Culture - Final Staphylococcus aureus 10/21/19 12:23 Blood Blood Culture - Final Staphylococcus aureus 10/20/19 15:43 Blood Blood Culture - Final Staphylococcus aureus 10/20/19 15:48 Blood Blood Culture - Final Staphylococcus aureus 10/20/19 14:26 Urine - Clean Void Mid-Stream Urine Culture - Final Staphylococcus aureus 10/20/19 19:29 Nose MRSA (PCR) - Final Medications Active Medications: Acetaminophen (Tylenol) 650 mg PO Q4-6HP PRN; Protocol PRN Reason: Per Pain Protocol/Fever > 101 Last Admin: 11/02/19 12:03 Dose: 650 mg Documented by: [email or web address] Admin: 11/02/19 08:03 Dose: 650 mg Documented by: [email or web address] Admin: 11/01/19 21:49 Dose: 650 mg Documented by: Admin: 11/01/19 12:09 Dose: 650 mg Documented by: [email or web address] Admin: 10/31/19 16:51 Dose: 650 mg Documented by: Admin: 10/30/19 21:30 Dose: 650 mg Documented by: Admin: 10/30/19 14:43 Dose: 650 mg Documented by: Admin: 10/30/19 09:06 Dose: 650 mg Documented by: Admin: 10/29/19 16:10 Dose: 650 mg Documented by: Admin: 10/29/19 04:11 Dose: 650 mg Documented by: Admin: 10/28/19 20:44 Dose: 650 mg Documented by: Admin: 10/28/19 15:02 Dose: 650 mg Documented by: Admin: 10/28/19 08:17 Dose: 650 mg Documented by: Admin: 10/27/19 21:17 Dose: 650 mg Documented by: Admin: 10/27/19 17:07 Dose: 650 mg Documented by: Admin: 10/27/19 06:14 Dose: 650 mg Documented by: Admin: 10/26/19 19:54 Dose: 650 mg Documented by: Admin: 10/26/19 08:30 Dose: 650 mg Documented by: Admin: 10/25/19 21:08 Dose: 650 mg Documented by: Admin: 10/25/19 12:10 Dose: 650 mg Documented by: NOHEMI Cefazolin Sodium (Ancef) 2 gm IV Q8H GLORIA Last Admin: 11/02/19 13:45 Dose: 2 gm Documented by: Admin: 11/02/19 06:04 Dose: 2 gm Documented by: Admin: 11/01/19 21:31 Dose: 2 gm Documented by: Admin: 11/01/19 15:05 Dose: 2 gm Documented by: Admin: 11/01/19 06:02 Dose: 2 gm Documented by: Admin: 10/31/19 22:46 Dose: 2 gm Documented by: Admin: 10/31/19 14:39 Dose: 2 gm Documented by: Admin: 10/31/19 06:10 Dose: 2 gm Documented by: Admin: 10/30/19 22:10 Dose: 2 gm Documented by: Admin: 10/30/19 14:22 Dose: 2 gm Documented by: Admin: 10/30/19 06:14 Dose: 2 gm Documented by: Admin: 10/29/19 22:19 Dose: 2 gm Documented by: Admin: 10/29/19 13:59 Dose: 2 gm Documented by: Admin: 10/29/19 06:05 Dose: 2 gm Documented by: Admin: 10/28/19 21:54 Dose: 2 gm Documented by: Admin: 10/28/19 15:02 Dose: 2 gm Documented by: Admin: 10/28/19 05:58 Dose: 2 gm Documented by: Admin: 10/27/19 21:52 Dose: 2 gm Documented by: Admin: 10/27/19 16:54 Dose: 2 gm Documented by: Admin: 10/27/19 05:12 Dose: 2 gm Documented by: Admin: 10/26/19 21:59 Dose: 2 gm Documented by: Admin: 10/26/19 13:54 Dose: 2 gm Documented by: Admin: 10/26/19 05:15 Dose: 2 gm Documented by: Admin: 10/25/19 22:17 Dose: 2 gm Documented by: Admin: 10/25/19 14:49 Dose: 2 gm Documented by: NOHEMI Dextrose (Dextrose 50%) 50 ml IV UD PRN PRN Reason: Hypoglycemia Dextrose (Dextrose 50%) 0 ml IV UD PRN PRN Reason: Hypoglycemia Diagnostic Test (Pha) (Accu-Chek) 1 each FS ACHS GLORIA Last Admin: 11/02/19 11:57 Dose: 1 each Documented by: Admin: 11/02/19 07:35 Dose: 1 each Documented by: Admin: 11/01/19 21:39 Dose: 1 each Documented by: [email or web address] Admin: 11/01/19 17:01 Dose: 1 each Documented by: Admin: 11/01/19 12:08 Dose: 1 each Documented by: [email or web address] Admin: 11/01/19 08:16 Dose: 1 each Documented by: [email or web address] Admin: 10/31/19 20:48 Dose: 1 each Documented by: [email or web address] Admin: 10/31/19 16:58 Dose: 1 each Documented by: Admin: 10/31/19 14:58 Dose: 1 each Documented by: Admin: 10/31/19 09:55 Dose: 1 each Documented by: Admin: 10/30/19 21:32 Dose: 1 each Documented by: Admin: 10/30/19 17:16 Dose: 1 each Documented by: [email or web address] Admin: 10/30/19 11:50 Dose: 1 each Documented by: Admin: 10/30/19 07:51 Dose: 1 each Documented by: Admin: 10/29/19 21:06 Dose: 1 each Documented by: Admin: 10/29/19 17:06 Dose: 1 each Documented by: Admin: 10/29/19 12:06 Dose: 1 each Documented by: Admin: 10/29/19 08:07 Dose: 1 each Documented by: Admin: 10/28/19 20:30 Dose: 1 each Documented by: Admin: 10/28/19 16:55 Dose: 1 each Documented by: Admin: 10/28/19 15:01 Dose: 1 each Documented by: Admin: 10/28/19 07:33 Dose: 1 each Documented by: Admin: 10/27/19 21:26 Dose: 1 each Documented by: Admin: 10/27/19 17:12 Dose: 1 each Documented by: Admin: 10/27/19 17:12 Dose: Not Given Documented by: LULÚ Non-Admin Reason: npo Admin: 10/27/19 08:14 Dose: 1 each Documented by: Admin: 10/26/19 21:41 Dose: 1 each Documented by: Admin: 10/26/19 16:38 Dose: 1 each Documented by: Admin: 10/26/19 12:22 Dose: 1 each Documented by: [email or web address] Admin: 10/26/19 07:36 Dose: 1 each Documented by: Admin: 10/25/19 21:16 Dose: 1 each Documented by: Admin: 10/25/19 17:07 Dose: 1 each Documented by: Admin: 10/25/19 11:41 Dose: 1 each Documented by: [email or web address] Docusate Sodium (Colace) 100 mg PO BID GLORIA Last Admin: 11/02/19 08:06 Dose: Not Given Documented by: [email or web address] Non-Admin Reason: Patient Refused Admin: 11/01/19 21:33 Dose: Not Given Documented by: MIKE Non-Admin Reason: Patient Refused Admin: 11/01/19 09:51 Dose: Not Given Documented by: [email or web address] Non-Admin Reason: Loose Stool Admin: 10/31/19 20:49 Dose: Not Given Documented by: MIKE Non-Admin Reason: Loose Stool Admin: 10/31/19 09:56 Dose: Not Given Documented by: NOHEMI Non-Admin Reason: NPO Admin: 10/30/19 21:31 Dose: 100 mg Documented by: Admin: 10/30/19 12:07 Dose: Not Given Documented by: [email or web address] Non-Admin Reason: Loose Stool Admin: 10/29/19 21:07 Dose: Not Given Documented by: ASPEN Non-Admin Reason: Loose Stool Admin: 10/29/19 08:07 Dose: 100 mg Documented by: Admin: 10/28/19 20:46 Dose: 100 mg Documented by: Admin: 10/28/19 07:32 Dose: 100 mg Documented by: Admin: 10/27/19 21:17 Dose: 100 mg Documented by: Admin: 10/27/19 16:14 Dose: Not Given Documented by: FERNANDEZ Non-Admin Reason: NPO Admin: 10/26/19 19:54 Dose: 100 mg Documented by: Admin: 10/26/19 08:19 Dose: 100 mg Documented by: Admin: 10/25/19 21:02 Dose: 100 mg Documented by: GOPI Glucose (Insta-Glucose) 15 gm PO PRN PRN PRN Reason: Hypoglycemia Hydromorphone HCl (Dilaudid) 1 mg IV Q4HP PRN; Protocol PRN Reason: Per Pain Protocol Last Admin: 10/31/19 13:25 Dose: 1 mg Documented by: Admin: 10/31/19 06:30 Dose: 1 mg Documented by: NOHEMI Insulin Glargine (Lantus) 60 unit SQ BID [facility] Last Admin: 11/02/19 08:05 Dose: 60 units Documented by: Admin: 11/01/19 21:45 Dose: 60 units Documented by: Admin: 11/01/19 09:50 Dose: 60 units Documented by: Admin: 10/31/19 20:46 Dose: 60 units Documented by: Admin: 10/31/19 13:30 Dose: Not Given Documented by: NOHEMI Non-Admin Reason: Clinical Judgement Admin: 10/30/19 21:32 Dose: 60 units Documented by: Admin: 10/30/19 09:08 Dose: 60 units Documented by: Admin: 10/29/19 21:07 Dose: 60 units Documented by: Admin: 10/29/19 08:07 Dose: 60 units Documented by: Admin: 10/28/19 20:43 Dose: 60 units Documented by: Admin: 10/28/19 07:37 Dose: Not Given Documented by: FERNANDEZ Non-Admin Reason: NPO Admin: 10/27/19 21:19 Dose: 60 units Documented by: GOPI Comments: BG = [id number] Admin: 10/27/19 08:15 Dose: Not Given Documented by: LULÚ Non-Admin Reason: held NPO at this time Insulin Human Lispro (Humalog) 0 unit SQ ACHS [facility]; Protocol Last Admin: 11/02/19 11:57 Dose: 2 units Documented by: [email or web address] Admin: 11/02/19 07:36 Dose: 2 units Documented by: Admin: 11/01/19 21:44 Dose: 8 units Documented by: Admin: 11/01/19 17:07 Dose: 8 units Documented by: Admin: 11/01/19 12:09 Dose: 10 units Documented by: Admin: 11/01/19 09:51 Dose: 10 units Documented by: Admin: 10/31/19 20:57 Dose: 10 units Documented by: Admin: 10/31/19 17:36 Dose: 8 units Documented by: Admin: 10/31/19 14:58 Dose: 6 units Documented by: Admin: 10/31/19 09:52 Dose: Not Given Documented by: NOHEMI Non-Admin Reason: Clinical Judgement Admin: 10/30/19 21:32 Dose: 10 units Documented by: Admin: 10/30/19 17:14 Dose: 8 units Documented by: Admin: 10/30/19 12:06 Dose: 6 units Documented by: Admin: 10/30/19 07:52 Dose: Not Given Documented by: DAVID Non-Admin Reason: No Coverage Needed Admin: 10/29/19 21:07 Dose: 10 units Documented by: Admin: 10/29/19 17:09 Dose: 8 units Documented by: Admin: 10/29/19 12:10 Dose: 6 units Documented by: Admin: 10/29/19 07:09 Dose: 8 units Documented by: Admin: 10/28/19 20:43 Dose: 10 units Documented by: Admin: 10/28/19 16:55 Dose: 10 units Documented by: Admin: 10/28/19 15:02 Dose: Not Given Documented by: FERNANDEZ Non-Admin Reason: NPO Admin: 10/28/19 07:34 Dose: Not Given Documented by: FERNANDEZ Non-Claire Reason: Clinical Judgement Admin: 10/27/19 21:19 Dose: 12 units Documented by: GOPI Comments: BG = 369 Admin: 10/27/19 16:57 Dose: 6 units Documented by: LULÚ Comments: 231 Admin: 10/27/19 16:57 Dose: Not Given Documented by: LULÚ Non-Admin Reason: not given npo Admin: 10/27/19 08:15 Dose: Not Given Documented by: LULÚ Non-Admin Reason: held,NPO at this time Admin: 10/26/19 21:37 Dose: 8 units Documented by: GOPI Comments: BG = 265 Admin: 10/26/19 16:44 Dose: 8 units Documented by: Admin: 10/26/19 12:22 Dose: 8 units Documented by: Admin: 10/26/19 07:41 Dose: 2 units Documented by: Admin: 10/25/19 21:03 Dose: 8 units Documented by: GOPI Comments: BG = 262 Admin: 10/25/19 17:12 Dose: 8 units Documented by: Admin: 10/25/19 12:14 Dose: 6 units Documented by: NOHEMI Labetalol HCl (Trandate) 0 mg IV Q2HP PRN PRN Reason: Hypertension Lorazepam (Ativan) 0.5 mg IV Q6HP PRN PRN Reason: ANXIETY/SEDATION Last Admin: 10/27/19 11:51 Dose: 0.5 mg Documented by: LULÚ Melatonin (Melatonin 3mg Tablet) 3 mg PO HSP PRN PRN Reason: Insomnia Last Admin: 11/01/19 21:49 Dose: 3 mg Documented by: MIKE Ondansetron HCl (Zofran) 4 mg IV Q6HP PRN PRN Reason: Nausea And Vomiting Potassium/Phosphorus/Sodium (Neutra Phos) 1 packet PO BID [facility] Last Admin: 11/02/19 08:03 Dose: 1 packet Documented by: Admin: 11/01/19 21:37 Dose: 1 packet Documented by: MIKE Senna (Senokot) 2 tab PO HS [facility] Last Admin: 11/01/19 21:33 Dose: Not Given Documented by: MIKE Non-Admin Reason: Patient Refused Admin: 10/31/19 20:49 Dose: Not Given Documented by: MIKE Non-Admin Reason: Loose Stool Admin: 10/30/19 21:31 Dose: 2 tab Documented by: Admin: 10/29/19 21:08 Dose: Not Given Documented by: ASPEN Non-Admin Reason: Loose Stool Admin: 10/28/19 20:46 Dose: 2 tab Documented by: Admin: 10/27/19 21:18 Dose: 2 tab Documented by: Admin: 10/26/19 19:56 Dose: 2 tab Documented by: Admin: 10/25/19 21:01 Dose: 2 tab Documented by: GOPI Sodium Chloride (Saline Flush) 10 ml IV Q8 [facility] Last Admin: 11/02/19 13:45 Dose: 10 ml Documented by: Admin: 11/02/19 06:04 Dose: 10 ml Documented by: Admin: 11/01/19 21:38 Dose: 10 ml Documented by: Admin: 11/01/19 15:05 Dose: 10 ml Documented by: [email or web address] Admin: 11/01/19 06:02 Dose: 10 ml Documented by: Admin: 10/31/19 22:47 Dose: 10 ml Documented by: Admin: 10/31/19 14:44 Dose: 10 ml Documented by: Admin: 10/31/19 06:09 Dose: 10 ml Documented by: Admin: 10/30/19 21:34 Dose: 10 ml Documented by: Admin: 10/30/19 14:22 Dose: 10 ml Documented by: Admin: 10/30/19 06:14 Dose: 10 ml Documented by: Admin: 10/29/19 22:20 Dose: 10 ml Documented by: Admin: 10/29/19 14:14 Dose: 10 ml Documented by: Admin: 10/29/19 06:05 Dose: 10 ml Documented by: Admin: 10/28/19 21:53 Dose: 10 ml Documented by: Admin: 10/28/19 15:02 Dose: 10 ml Documented by: Admin: 10/28/19 05:58 Dose: 10 ml Documented by: Admin: 10/27/19 21:57 Dose: 10 ml Documented by: Admin: 10/27/19 16:56 Dose: 10 ml Documented by: Admin: 10/27/19 05:11 Dose: 10 ml Documented by: Admin: 10/26/19 22:00 Dose: 10 ml Documented by: Admin: 10/26/19 13:57 Dose: 10 ml Documented by: [email or web address] Admin: 10/26/19 05:15 Dose: 10 ml Documented by: Admin: 10/25/19 22:18 Dose: 10 ml Documented by: Admin: 10/25/19 14:50 Dose: 10 ml Documented by: NOHEMI Assessment and Plan - Narrative A/P Narrative: A: 1. MSSA bacteremia: possible seeding of right extrapleural soft tissue fluid collection - Being insulin dependent DM2, it is possible that he might have skin translocation of MSSA during insulin injection or blood sugar testing. - neg TTE - given multiple +ve blood Cx (2/2 sets on 10/20, 10/21 and 10/23 so far), will need STANFORD evaluation 2. DM2: blood sugars in control - AG closed 3. Rt lateral chest wall abscess due to MSSA: possible source or seeding from MSSA bacteremia -seen on CT right shoulder on 10/26 as 16 cm in length, 14 cm in AP dimension and 2.8 cm in width, located between the ribs and the overlying right latissimus dorsi muscle). Increased size on subsequent CT today to 14 x 17 cm with inv of serratus anterior {not reported on past CT] - s/p one time drainage by IR on 10/28 with removal of pus, Cx growing Staph aureus - s/p surgical drainage with a drain on 10/31 with placement of 15Fr percutaneous drain 4. 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 This pt doesnot have neutropenia, so will keep it low on differential Recommendations: - Continue IV Cefazolin 2 gm q8 hrs, day 8. Pharmacy will get CADD pump arranged tomorrow for ease of dosing - anticipate at least 4 weeks of IV antibiotics with tentative stop date of 11/22/19 - PICC line placement tentatively scheduled for 11/03/19 at 1:30 pm with STANFORD done afterwards - ID clinic f/u appt made for 11/16/19 at 4:15 pm - Follow up labs as: CBC, BMP weekly ESR and CRP every other week Fax lab results to [phone] Jaison Colvin MD Infectious diseases
--- NOTE | 2019-11-02 15:41 | General Surgery Progress Note ---
Subjective Patient reports: no new complaints, feels better, pain is less Narrative: Note initiated : 11/02/19 at 3:38 pm Service Date, if different from initiated Date: [] Patient: Tarun Molina 49 y/o M admitted on 10/20/19 for Blood Sugar Problem, Chest Wall Abscess. Chief Complaint: [] Objective Temp Pulse Resp BP Pulse Ox 97.5 F 87 16 101/61 100 11/02/19 12:00 11/02/19 12:00 11/02/19 12:00 11/02/19 12:00 11/02/19 12:00 - Additional Data Intake & Output - Last 24 hours: Intake & Output 10/31/19 11/01/19 11/02/19 11/03/19 05:59 05:59 05:59 05:59 Intake Total 1929 2199 1999 760 Output Total 2049 2196 2089 Balance -120 3 -90 760 Weight 237 lb 3.2 oz 238 lb 14.4 oz 246 lb 14.4 oz - Additional Exam The chest in the area of the incision, drainage, and drain placement was examined. The area appears benign. There is no reaccumulation of fluid. The drain is draining a small amount of light serosanguineous fluid. - Labs 11/02/19 05:25 11/02/19 05:25 Diabetes panel 11/02/19 Range/Units 05:25 Sodium 135 (133-145) mmol/L Potassium 3.3 (3.3-5.1) mmol/L Chloride 103 (96-108) mmol/L Carbon Dioxide 24 (22-30) mmol/L BUN 7 (6-20) mg/dl Creatinine 0.3 L (0.7-1.2) mg/dl Glucose 137 H (70-105) mg/dL Calcium 7.4 L (8.6-10.4) mg/dl Calcium panel 11/02/19 Range/Units 05:25 Calcium 7.4 L (8.6-10.4) mg/dl Pituitary panel 11/02/19 Range/Units 05:25 Sodium 135 (133-145) mmol/L Potassium 3.3 (3.3-5.1) mmol/L Chloride 103 (96-108) mmol/L Carbon Dioxide 24 (22-30) mmol/L BUN 7 (6-20) mg/dl Creatinine 0.3 L (0.7-1.2) mg/dl Glucose 137 H (70-105) mg/dL Calcium 7.4 L (8.6-10.4) mg/dl Adrenal panel 11/02/19 Range/Units 05:25 Sodium 135 (133-145) mmol/L Potassium 3.3 (3.3-5.1) mmol/L Chloride 103 (96-108) mmol/L Carbon Dioxide 24 (22-30) mmol/L BUN 7 (6-20) mg/dl Creatinine 0.3 L (0.7-1.2) mg/dl Glucose 137 H (70-105) mg/dL Calcium 7.4 L (8.6-10.4) mg/dl Assessment and Plan (1) Chest wall abscess Status: Acute Assessment and plan: We will plan to keep the drain in for the time being. He may be discharged to home when he is medically ready. It is recommended that he follow up in the General surgery clinic on November 09 for wound check, suture removal, and drain removal Current Visit: Yes - Time Spent With Patient Total time spent is greater than 50% in coordination of care (as documented) at patient's floor/unit and/or counseling patient:
[2019-11-02] MEDS: SENNOSIDES 1 TABLET PO SCH (21:58)
[2019-11-03] MEDS: ceFAZolin 1 GM VIAL IV SCH (06:00)
[2019-11-03] MEDS: 0.9 % SODIUM CHLORIDE 10 ML SYRINGE IV SCH (06:01)
[2019-11-03] MEDS: INSULIN LISPRO 1 UNIT/0.01 ML UNIT SQ SCH (07:18)
[2019-11-03] MEDS: NEUTRA PHOS 1 PACKET PO SCH (08:25)
[2019-11-03] MEDS ORDERED: INSULIN GLARGINE, HUMAN 1 UNIT/0.01 ML SQ ONE (08:38)
[2019-11-03] MEDS: INSULIN GLARGINE, HUMAN 1 UNIT/0.01 ML SQ SCH (08:39)
[2019-11-03] MEDS: DOCUSATE SODIUM 100 MG CAPSULE PO SCH (08:59)
[2019-11-03] MEDS: HYDROmorphone 2 MG/ML VIAL IV PRN (09:09)
[2019-11-03] MEDS ORDERED: FLU VACC QS2019-20(6MOS UP)/PF 60 MCG/0.5 ML SYRINGE IM ONE (09:45)
[2019-11-03] MEDS ORDERED: PNEUMOCOCCAL 23-VAL P-SAC VAC 0.5 ML SYRINGE IM ONE (10:00)
--- NOTE | 2019-11-07 07:19 | Operative Note ---
DATE OF OPERATION: 10/31/2019 PREOPERATIVE DIAGNOSIS: Right lateral chest wall submuscular fluid collection. POSTOPERATIVE DIAGNOSIS: Right lateral chest wall submuscular fluid collection. PROCEDURE: Incision and drainage of same with placement of a percutaneous 15-Setswana round drain. SURGEON: Martín Dawson MD ANESTHESIA: General and local. DESCRIPTION OF PROCEDURE: After induction of general anesthetic, the patient was turned in left lateral decubitus position. The right lateral and posterior chest wall was painted with ChloraPrep solution prior to being sterilely draped. The fluid collection was palpated. A 1.5 cm incision was made. Blunt dissection deep to the adipose tissue was carried out with the assistance of electrocautery division to expose the latissimus dorsi muscle. This similarly was but without division. The fluid cavity was then entered. A serosanguineous thin fluid was identified. 200 mL were aspirated promptly. A 15 Setswana round fluted trocar drain was then placed and positioned in the cavity. The drain was placed to bulb suction. It was secured to the chest wall using a 3-0 nylon. After hemostasis was noted, the wound was closed using deep dermal 3-0 Vicryl followed by simple 3-0 nylon in the skin. Telfa, Tegaderm dressings were applied. The patient was thereafter awakened, extubated, and transferred to the recovery room in stable and good condition. ESTIMATED BLOOD LOSS: Negligible. COMPLICATIONS: None. SPECIMEN: Fluid for culture and sensitivity. DRAINS: 15 Setswana round fluted percutaneous drain. DEN:isabella Job ID: [id number] Doc ID: [id number] Martín Dawson MD
== END 2019-11-03 11:28 | disposition home or self-care (01) | DRG 579 ==
LOC: ED 12:42 → ICU 19:15 → SUATTDRO 19:23 → MEDSUR 10-25 11:46
PROVIDERS: ADMIT Internal Medicine; ATTEND Internal Medicine

== ENCOUNTER 2020-02-19 10:54 | Inpatient (IN) ==
[2020-02-19] MEDS ORDERED: 0.9 % SODIUM CHLORIDE 1,000 ML IV ONE ×2 (10:59→14:48)
--- NOTE | 2020-02-19 11:03 | Emergency Department Note ---
Skin/Abscess/FB HPI - General Chief complaint: Skin/Abscess/Foreign Body Stated complaint: black tissues to left foot Time Seen by Provider: 02/19/20 11:02 Source: patient Mode of arrival: ambulatory Limitations: no limitations - History of Present Illness HPI Narrative: 49-year-old male presents with severe wounds to the left foot. This is been going on for 2 months. He was supposed to see Dr. Montemayor with podiatry but he states he was out of it and missed his appointment. He has been on 1 round of antibiotics outpatient that did not seem to help at all. He has been seeing Lianet Allen for PCP. He reports intermittent fever and chills for the last several weeks. Extremely foul odor from the left foot and swelling, redness, and blackened areas for the last couple of weeks. States it is hard for him to even know because he has been so out of it. States his blood sugars in the 400 range are good for him and it helps at all the food places are closed right now because he is not eating out as much. He arrives drinking a Dr. Blanchard Icee and a blood sugar in the mid 400s on arrival. No nausea, vomiting, or diarrhea. He does have fatigue and body aches and generally does not feel great. No shortness of breath or difficulty breathing. No cough or cold symptoms. - Related Data Home Medications Medication Instructions Recorded Confirmed [id number] 250 2 tab PO Q6H PRN 11/16/19 01/26/20 mg-250 mg-65 mg tablet docusate sodium 100 mg tablet 100 mg PO QDAY PRN 12/08/19 01/26/20 Previous Rx's Medication Instructions Recorded blood sugar diagnostic See Rx Instructions .ROUTE 12/08/19 .MEDSUPPLY #100 each blood-glucose meter See Rx Instructions .ROUTE 12/08/19 .MEDSUPPLY #1 each furosemide 40 mg tablet 40 mg PO QDAY #30 tab 12/08/19 insulin lispro 100 unit/mL See Rx Instructions SUB-Q TID #10 12/08/19 subcutaneous solution ml spironolactone 100 mg tablet 100 mg PO QDAY #30 tab 12/08/19 acetaminophen 300 mg-codeine 30 mg 1 tab PO Q4H PRN #30 tab 01/26/20 tablet doxycycline hyclate 100 mg capsule 100 mg PO BID #14 cap 01/26/20 insulin degludec 200 unit/mL (3 130 unit SUB-Q QAM 30 Days #19.5 ml 01/26/20 mL) subcutaneous pen Allergies Allergy/AdvReac Type Severity Reaction Status Date / Time latex Allergy Mild Hives Verified 02/19/20 10:58 Amoxicillin Allergy Unknown Unknown Verified 02/19/20 10:58 ampicillin Allergy Unknown Unknown Verified 02/19/20 10:58 egg Allergy Unknown Unknown Verified 02/19/20 10:58 Review of Systems All systems ED: reviewed and negative except as stated. Past Medical History - Past Medical History [facility] Narrative: Medical History (Last Reviewed 01/08/20 @ 08:16 by Lianet Allen PA-C) Stomach ulcer (Chronic) Migraines (Chronic) Liver disease (Chronic) Joint pain (Chronic) Insomnia (Chronic) High blood pressure (Chronic) Type 2 diabetes mellitus (Chronic) Depression (Chronic) Daytime sleepiness (Chronic) Muscle pain (Chronic) Asthma (Chronic) Anxiety (Chronic) Acid reflux (Chronic) Chronic back pain (Chronic) Obesity (Chronic) Restless leg syndrome (Chronic) Diabetes mellitus (Chronic) Diabetic neuropathy (Chronic) Skin fissure (Chronic) Callus of foot (Chronic) Onychomycosis (Chronic) Scrotal abscess (Chronic) Erectile dysfunction (Chronic) BPH (benign prostatic hyperplasia) (Chronic) Hypernatremia (Chronic) Chest wall abscess (Chronic) 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 Absent: conjunctival injection ENT: Present: mucous membranes moist Chest: Present: symmetric chest wall rise Respiratory: Present: normal lung sounds bilaterally. Absent: respiratory distress, rales/crackles, accessory muscle use Cardiovascular: Present: regular rate, normal heart sounds Abdominal: Present: soft, distention (difuse large round abd), normal bowel sounds. Absent: tenderness, guarding, mass Extremities: Absent: normal inspection (Left foot with diffuse edema, decreased sensation, redness, warmth, and several necrotic areas. Please see pictures.) Neurological: Present: alert, oriented X3 Psychiatric: Present: normal affect, normal mood Skin: Present: warm, dry, other (Please see extremities regarding left foot wound and see pictures as well) Course Course Narrative: @ 1400 Dr. Kraus, hopsitalist accepted and Dr. Vargas agrees to consult. Vital Signs Temperature 100.6 F H 02/19/20 10:55 Pulse Rate 93 H 02/19/20 10:55 Respiratory Rate 20 02/19/20 10:55 Blood Pressure 127/80 02/19/20 10:55 Pulse Oximetry (%) 97 02/19/20 10:55 Temperature 100.6 F H 02/19/20 10:55 Pulse Rate 87 02/19/20 14:18 Respiratory Rate 14 02/19/20 14:18 Blood Pressure 106/62 02/19/20 14:01 Pulse Oximetry (%) 95 02/19/20 14:18 Skin/Abscess/Foreign Body - Lab Data Lab results reviewed: Yes I reviewed the patient's lab results. Result diagrams: 02/19/20 11:09 02/19/20 11:09 Lab Results 02/19/20 02/19/20 02/19/20 Range/Units 11:09 11:09 11:09 WBC 7.3 (4.50-11.00) K/mcL RBC 2.70 L (4.63-6.08) M/mcL Hgb 8.4 L (13.7-17.5) g/dL Hct 25.2 L (40.1-51.0) % MCV 93.3 (80.0-100.0) fL MCH 31.1 (26.0-34.0) pg MCHC 33.3 (31.0-36.0) g/dL RDW 13.9 (11.5-14.5) % Plt Count 58 L (140-440) K/mcL MPV 12.6 H (7.4-10.4) fL Total Counted 100 Seg Neutrophils % 74 (38-78) % Band Neutrophils % 6 (0-10) % Lymphocytes % 15 (15-49) % Monocytes % (Manual) 5 (1-12) % WBC Morphology Abnorm A (NORMAL) Toxic Granulation Few A (NONE SEEN) Dohle Bodies 1+ A (NONE SEEN) Platelet Estimate Decreased A (NORMAL) RBC Morphology Abnorm A (NORMAL) Polychromasia 1+ A (NONE SEEN) Hypochromasia 1+ A (NONE SEEN) VBG Lactic Acid 2.7 H (0.5-2.0) mmol/L Sodium 122 L (133-145) mmol/L Potassium 3.6 (3.3-5.1) mmol/L Chloride 90 L (96-108) mmol/L Carbon Dioxide 19 L (22-30) mmol/L Anion Gap 13.0 (8-16) BUN 5 L (6-20) mg/dl Creatinine 0.7 (0.7-1.2) mg/dl GFR Calculation 110 Glucose 454 H* (70-105) mg/dL Calcium 7.7 L (8.6-10.4) mg/dl Total Bilirubin 1.6 H (0.0-1.0) mg/dL AST 21 (0-37) U/l ALT 10 (0-40) U/l Alkaline Phosphatase 69 (39-117) U/L C-Reactive Protein 10.3 H (0.0-0.8) mg/dl Total Protein 8.2 (5.9-8.4) gm/dL Albumin 2.2 L (3.2-5.2) gm/dL Globulin 6.0 H (2.2-3.7) gm/dL Albumin/Globulin Ratio 0.4 L (1.0-2.3) - Radiology Data Radiology results reviewed: Yes I reviewed the patient's radiology results. Disposition Pt seen by HANDLE BAR ASSEMBLER/PA only: Yes Clinical Impression: Cellulitis, Osteomyelitis of left foot, Hyperglycemia, Hyponatremia, Self-care deficit for hygiene Disposition: Xfer As Inpt ([facility]) Condition: Fair Referrals: Breezy Griffith ARNP [Primary Care Provider] - Angel Thompson MD [Physician] - Chidi Montemayor DPM [Physician] - Time of Disposition: 14:40
[2020-02-19] MEDS ORDERED: cefTRIAXone 1 GM VIAL IV ONE (11:04)
[2020-02-19] MEDS ORDERED: ONDANSETRON 4 MG/2 ML VIAL IV ONE (11:06)
[2020-02-19] MEDS ORDERED: HYDROmorphone* 2 MG/ML VIAL IV SCH (11:15)
[2020-02-19 11:48] LABS: Hematocrit 25.2 % (40.1-51.0); Hemoglobin 8.4 g/dL (13.7-17.5); Mean Cell Volume 93.3 fL (80.0-100.0); Mean Corpuscular HGB Conc 33.3 g/dL (31.0-36.0); Mean Platelet Volume 12.6 fL (7.4-10.4); Platelet Count 58 K/mcL (140-440); Red Cell Distribution Width 13.9 % (11.5-14.5); WBC 7.3 K/mcL (4.50-11.00)
[2020-02-19 12:02] LABS: ALT/SGPT 10 U/l (0-40); AST/SGOT 21 U/l (0-37); Albumin 2.2 gm/dL (3.2-5.2); Albumin/Globulin Ratio 0.4 (1.0-2.3); Alkaline Phosphatase 69 U/L (39-117); Bilirubin,Total 1.6 mg/dL (0.0-1.0); Blood Urea Nitrogen 5 mg/dl (6-20); C-Reactive Protein 10.3 mg/dl (0.0-0.8); Calcium 7.7 mg/dl (8.6-10.4); Carbon Dioxide 19 mmol/L (22-30); Chloride 90 mmol/L (96-108); Glomerular Filtration Rate 110; Glucose 454 mg/dL (70-105)
[2020-02-19 12:21] LABS: Band Neutrophils % 6 % (0-10); Dohle Bodies 1+ (NONE SEEN); Hypochromasia 1+ (NONE SEEN); Lymphocytes % 15 % (15-49); Monocytes % (Manual) 5 % (1-12); Platelet Estimate DECREASED (NORMAL); Polychromasia 1+ (NONE SEEN); RBC Morphology ABNORM (NORMAL); Segmented Neutrophils % 74 % (38-78); Toxic Granulation FEW (NONE SEEN)
[2020-02-19] MEDS ORDERED: INSULIN REGULAR, HUMAN 1 UNIT/0.01 ML UNIT SQ PRN (12:35)
--- NOTE | 2020-02-19 12:46 | Magnetic Resonance Report ---
INDICATION: fever, possible osteo. History of diabetes TECHNIQUE: Sagittal, axial, coronal images of the left foot COMPARISON: Plain film examination dated 01/05/2020 FINDINGS: There is a soft tissue wound overlying the mid to distal left fifth metatarsal. This is along the lateral aspects of the left foot. This wound extends deep to the metatarsal bone. There is a second wound involving the plantar surface of the left foot, deep to the second through fourth metatarsals. There is generalized bone marrow edema within the left fifth metatarsal and associated bone destruction. Left fifth phalanges also appear abnormal with bone marrow edema. There is soft tissue edema in the left fifth digit. Findings are consistent with osteomyelitis involving the left fifth metatarsal and phalanges. There is mild bone marrow edema within the left fourth metatarsal. There appears to be cortical destruction in the distal and plantar aspects of the left fourth metatarsal. There is probable bone marrow edema within the left fourth phalanges. Findings are consistent with osteomyelitis. First through third metatarsals and phalanges are negative. Mid foot is negative. Tarsal bones are negative. IMPRESSION: 1. There is a wound in the lateral aspects of the left foot which extends to the left fifth metatarsal with associated osseous destruction 2. Soft tissue wound in the plantar aspects of the left forefoot, superficial to the second through fourth metatarsals 3. Bone marrow edema and bone destruction within the left fifth metatarsal consistent with osteomyelitis. Phalanges are also abnormal 4. Mild bone marrow edema within the left fourth metatarsal consistent with osteomyelitis. Left fourth digit phalanges appear abnormal with bone marrow edema Interpreted and Authenticated by: Karthikeyan Mueller 02/19/20
--- NOTE | 2020-02-19 14:22 | Internal Med History&Physical ---
Medical - H&P: [facility] Patient information: Note initiated : 02/19/20 at 2:21 pm Service Date, if different from initiated Date: [] Patient: Tarun Molina 49 y/o M admitted on for black tissues to left foot. Chief Complaint: [] History of present illness: Mr. Molina is a 49 year old M 49-year-old male who was last admitted in October for DKA and abscess along his thoracic wall now presents for wound of the left foot this been there for several months. This wound he says started a blister has progressed. He was supposed to see Dr. Montemayor but missed his appointment. He saw at the [facility] clinic today who said he needed to come into the hospital because of his foot. Patient states his foot has a foul odor and has been swelling and draining pus. He states he has had fevers and chills recently past several weeks. He is a diabetic but arrived in the ED drinking a DrPallavi Blanchard slushy. He says he misses a lot of doses of insulin because he does not feel like getting up or taking it. He also has short acting for meals which she has not been taking. Has not been adhering to diabetic diet. In the ED had a temperature of 100.6. He was hyponatremic. Lactate was 2.7. Blood glucose is 454 in the ED. Left foot MRI shows cellulitis and osteomyelitis. Review of Systems: Positives as above plus lethargy. Denies headache//nausea/vomiting/chest or abdominal pain/cough/dyspnea/diarrhea. Remaining 10 point review of system reviewed negative. Medical - H&P: [facility] Medical history: Medical History (Last Reviewed 01/08/20 @ 08:16 by Lianet Allen PA-C) Stomach ulcer (Chronic) Migraines (Chronic) Liver disease (Chronic) Joint pain (Chronic) Insomnia (Chronic) High blood pressure (Chronic) Type 2 diabetes mellitus (Chronic) Depression (Chronic) Daytime sleepiness (Chronic) Muscle pain (Chronic) Asthma (Chronic) Anxiety (Chronic) Acid reflux (Chronic) Chronic back pain (Chronic) Obesity (Chronic) Restless leg syndrome (Chronic) Diabetes mellitus (Chronic) Diabetic neuropathy (Chronic) Skin fissure (Chronic) Callus of foot (Chronic) Onychomycosis (Chronic) Scrotal abscess (Chronic) Erectile dysfunction (Chronic) BPH (benign prostatic hyperplasia) (Chronic) Hypernatremia (Chronic) Chest wall abscess (Chronic) 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) Past Surgical History (Last Reviewed 01/08/20 @ 08:16 by Lianet Allen PA-C) History of hand surgery (Chronic) History of incision and drainage (Chronic) Family History (Last Reviewed 01/08/20 @ 08:16 by Lianet Allen PA-C) Mother Hypertension, Diabetes, Arthritis, Stroke Social History (Last Updated 01/26/20 @ 16:09 by Lianet Allen PA-C) Denies tobacco use next line denies alcohol use Denies drug use Occasionally uses a walker Lives by himself Medical - H&P: Meds Home Medications Medication Instructions Recorded Confirmed Type insulin lispro 100 unit/mL See Rx Instructions SUB-Q TID #10 12/08/19 01/26/20 Rx subcutaneous solution ml insulin degludec 200 unit/mL (3 130 unit SUB-Q QAM 30 Days #19.5 ml 01/26/20 01/26/20 Rx mL) subcutaneous pen Allergies Allergy/AdvReac Type Severity Reaction Status Date / Time latex Allergy Mild Hives Verified 02/19/20 10:58 Amoxicillin Allergy Unknown Unknown Verified 02/19/20 10:58 ampicillin Allergy Unknown Unknown Verified 02/19/20 10:58 egg Allergy Unknown Unknown Verified 02/19/20 10:58 Medical - H&P: Exam - Constitutional Vitals: Temp Pulse Resp BP Pulse Ox 100.6 F H 87 14 106/62 95 02/19/20 10:55 02/19/20 14:18 02/19/20 14:18 02/19/20 14:01 02/19/20 14:18 Exam: General: Alert, Awake, No acute Distress, obese Eyes/N/T: EOMI, PERRL, Head/Neck: neck supple, normocephalic atraumatic CV: RRR, 1/6 SM Pulm: Clear b/l, no wheezing/rhonchi/rales Abd: soft, nontender, +BS x4 Ext: LLE 1+ edema. RLE 2+ edema, foot with larger wound plantar and lateral aspect with purulent drainage and foul odor as well as eschar, swelling. Neuro: Alert, no focal deficits, moves all extremities, CN 2-12 grossly intact, symmetrical strength b/l upper/lower Skin: warm/dry Medical - H&P: Reslt - Labs CBC & Chem 7: 02/19/20 11:09 02/19/20 11:09 Labs: Short CBC 02/19/20 Range/Units 11:09 WBC 7.3 (4.50-11.00) K/mcL Hgb 8.4 L (13.7-17.5) g/dL Hct 25.2 L (40.1-51.0) % Plt Count 58 L (140-440) K/mcL BMP 02/19/20 11:09 Sodium 122 L Potassium 3.6 Chloride 90 L Carbon Dioxide 19 L BUN 5 L Creatinine 0.7 Glucose 454 H* Calcium 7.7 L Liver Function 02/19/20 Range/Units 11:09 Total Bilirubin 1.6 H (0.0-1.0) mg/dL AST 21 (0-37) U/l ALT 10 (0-40) U/l Alkaline Phosphatase 69 (39-117) U/L Albumin 2.2 L (3.2-5.2) gm/dL - Impressions MRI left foot shows cellulitis and osteomyelitis Medical - H&P: A/P - Narrative A/P Narrative: Assessment: *Diabetic left foot wound/cellulitis with Osteomyelitis, severe and with foul odor: -h/o MSSA *DM II w/DKA: 2/2 noncompliance with medications and diet -last A1c 13 *lactic acidosis: *Hyponatremia: corrected is 128 on admit *Cirrhosis w/thrombocytopenia: has had extensive w/u to determine etiology but likely etoh *Anemia, chronic: *Obesity: Plan: -Cefepime/flagyl, pending WC/BC -Dr. Montemayor for Podiatry and Dr. Thompson following; pt likely need amputation -IVF's -insulin gtt -DM education -pending UA/BHB/VBG/A1c/UDS -restart home Lasix/aldactone once rehydrated - -pt/ot -ppx: lovenox (hold if PLT<50k) full code
[2020-02-19] MEDS ORDERED: CLINDAMYCIN 600 MG in DEXTROSE 5% IN WATER 50 ML IV ONE (14:50)
[2020-02-19] MEDS ORDERED: HYDROcodone/APAP 5/325MG TABLET PO PRN (16:12)
[2020-02-19] MEDS ORDERED: IPRATROPIUM/ALBUTEROL 3 ML AMPUL.NEB NEB PRN (16:12)
[2020-02-19] MEDS ORDERED: POTASSIUM CHLORIDE 40 MEQ in DEXTROSE 5% IN WATER 500 ML IV PRN (16:12)
[2020-02-19] MEDS ORDERED: ONDANSETRON 4 MG/2 ML VIAL IV PRN (16:12)
[2020-02-19] MEDS ORDERED: INSULIN REGULAR, HUMAN 50 UNIT in 0.9 % SODIUM CHLORIDE 99.5 ML IV SCH (16:12)
[2020-02-19] MEDS ORDERED: POTASSIUM CHLORIDE 20 MEQ TABLET PO PRN ×2 (16:12)
[2020-02-19] MEDS ORDERED: POLYETHYLENE GLYCOL 3350 17 GM PACKET PO PRN (16:12)
[2020-02-19] MEDS ORDERED: ACETAMINOPHEN 325 MG TABLET PO PRN (16:12)
[2020-02-19] MEDS ORDERED: SENNOSIDES 1 TABLET PO PRN (16:12)
[2020-02-19] MEDS ORDERED: MAGNESIUM SULFATE 2 GM/50 ML BAG IV PRN (16:12)
[2020-02-19] MEDS: 0.9 % SODIUM CHLORIDE 1,000 ML IV SCH (16:30)
[2020-02-19] MEDS ORDERED: MAGNESIUM SULFATE 2 GM/50 ML BAG IV ONE (16:59)
[2020-02-19 17:14] LABS: Hemoglobin A1C 9.9 % HGB (4.0-6.0)
[2020-02-19 17:44] LABS: Amphetamine Screen,Urine NONE DETECTED (NONDETECTED); Barbiturate Screen,Urine NONE DETECTED (NONDETECTED); Benzodiazepines Screen,Urine NONE DETECTED (NONDETECTED); Cannabinoid Screen,Urine NONE DETECTED (NONDETECTED); Cocaine Screen,Urine NONE DETECTED (NONDETECTED); Opiate Screen,Urine NONE DETECTED (NONDETECTED); Oxycodone, Urine Screen NONE DETECTED (NONDETECTED); Phencyclidine Screen,Urine NONE DETECTED (NONDETECTED)
--- NOTE | 2020-02-19 17:49 | General Surgery Consult Note ---
History of Present Illness Patient information: Note initiated : 02/19/20 at 5:47 pm Service Date, if different from initiated Date: [] Patient: Tarun Molina 49 y/o M admitted on 02/19/20 for black tissues to left foot. Chief Complaint: [] Consult date: 02/19/20 Requesting physician: Gia Jimenez History of present illness: I saw this patient in room # 119 with Martina RN. Reviewed H/P and lab results. LEFT foot and leg wounds were already cleaned and dressed. Will see wounds in AM 02/20/2020. Patient seen on rounds along with Gayle REAVES, Inpatient wound care nurse and JELLY Mack taking care of patient on Med Surg Floor. Spoke with Dr.Leif Kraus, Hospitalist Physician about plan of care for this gentleman. This is an 49 year old male with IDDM, peripheral neuropathy and SEPTIC, grossly infected Diabetic foot, with wet gangrene of LEFT 4th toe and extensive soft tissue breakdown, ulceration and putrid necrotic tissue exposed in the foot. Inflammatory process extends up to ankle. He has palpable DP and PT pulses. Hyperglycemia and uncontrolled DM with metabolic abnormalities have improved with hydration and insulin. He is on broad spectrum antibiotics. Patient had an uneventful night and does not have any other constitutional and systemic complaints. Just finished eating breakfast. Medications and Allergies Home Medications Medication Instructions Recorded Confirmed Type insulin lispro 100 unit/mL See Rx Instructions SUB-Q TID #10 12/08/19 02/19/20 Rx subcutaneous solution ml Insulin Glargine, Human [Lantus] 65 unit SQ BID 02/19/20 02/19/20 History Allergies Allergy/AdvReac Type Severity Reaction Status Date / Time Amoxicillin Allergy Mild Hives Verified 02/19/20 20:06 ampicillin Allergy Mild Hives Verified 02/19/20 20:06 latex Allergy Mild Rash Verified 02/19/20 20:07 egg AdvReac Mild Nausea Verified 02/19/20 20:08 Exam Temp Pulse Resp BP Pulse Ox 98.2 F 83 16 110/64 99 02/19/20 16:02 02/19/20 15:41 02/19/20 16:45 02/19/20 16:45 02/19/20 16:45 - General physical appearance well developed, well nourished, no distress, no pain - Eyes PERRL, normal ocular movement - ENT normal pinna, normal nares, normal mucosa, no congestion - Head Head exam IM: Present: atraumatic, normal inspection, normocephalic - Neck no masses, trachea midline, no venous distension - Cardiovascular Cardiovascular exam IM: Present: normal rate and rhythm - Respiratory normal respiratory effort, clear to auscultation - Abdomen Abdomen: Present: soft, non tender, bowel sounds - Integumentary Present: other (INFECTED DFU Stage 4/5 Wet gangrene extending to proximal foot) - Neurologic Present: other (Peripheral neuropathy. No other focal neurological deficits. ) - Musculoskeletal Present: other (NWB Left foot. ) - Psychiatric Present: oriented to time, oriented to person, oriented to place, speech is normal, memory intact Results - Labs 02/20/20 04:35 02/20/20 04:35 Abnormal lab results 02/19/20 02/19/20 02/19/20 Range/Units 11:09 11:09 11:09 RBC 2.70 L (4.63-6.08) M/mcL Hgb 8.4 L (13.7-17.5) g/dL Hct 25.2 L (40.1-51.0) % Plt Count 58 L (140-440) K/mcL MPV 12.6 H (7.4-10.4) fL WBC Morphology Abnorm A (NORMAL) Toxic Granulation Few A (NONE SEEN) Dohle Bodies 1+ A (NONE SEEN) Platelet Estimate Decreased A (NORMAL) RBC Morphology Abnorm A (NORMAL) Polychromasia 1+ A (NONE SEEN) Hypochromasia 1+ A (NONE SEEN) VBG Lactic Acid 2.7 H (0.5-2.0) mmol/L Sodium 122 L (133-145) mmol/L Chloride 90 L (96-108) mmol/L Carbon Dioxide 19 L (22-30) mmol/L BUN 5 L (6-20) mg/dl Glucose 454 H* (70-105) mg/dL Hemoglobin A1c (4.0-6.0) % HGB Calcium 7.7 L (8.6-10.4) mg/dl Magnesium (1.6-2.5) mg/dL Total Bilirubin 1.6 H (0.0-1.0) mg/dL C-Reactive Protein 10.3 H (0.0-0.8) mg/dl Albumin 2.2 L (3.2-5.2) gm/dL Globulin 6.0 H (2.2-3.7) gm/dL Albumin/Globulin Ratio 0.4 L (1.0-2.3) Beta-Hydroxybutyrate (< 0.27) mmol/L 02/19/20 02/19/20 Range/Units 11:09 11:09 RBC (4.63-6.08) M/mcL Hgb (13.7-17.5) g/dL Hct (40.1-51.0) % Plt Count (140-440) K/mcL MPV (7.4-10.4) fL WBC Morphology (NORMAL) Toxic Granulation (NONE SEEN) Dohle Bodies (NONE SEEN) Platelet Estimate (NORMAL) RBC Morphology (NORMAL) Polychromasia (NONE SEEN) Hypochromasia (NONE SEEN) VBG Lactic Acid (0.5-2.0) mmol/L Sodium (133-145) mmol/L Chloride (96-108) mmol/L Carbon Dioxide (22-30) mmol/L BUN (6-20) mg/dl Glucose (70-105) mg/dL Hemoglobin A1c 9.9 H (4.0-6.0) % HGB Calcium (8.6-10.4) mg/dl Magnesium 1.5 L (1.6-2.5) mg/dL Total Bilirubin (0.0-1.0) mg/dL C-Reactive Protein (0.0-0.8) mg/dl Albumin (3.2-5.2) gm/dL Globulin (2.2-3.7) gm/dL Albumin/Globulin Ratio (1.0-2.3) Beta-Hydroxybutyrate 0.95 H (< 0.27) mmol/L Diabetes panel 02/19/20 02/19/20 Range/Units 11:09 11:09 Sodium 122 L (133-145) mmol/L Potassium 3.6 (3.3-5.1) mmol/L Chloride 90 L (96-108) mmol/L Carbon Dioxide 19 L (22-30) mmol/L BUN 5 L (6-20) mg/dl Creatinine 0.7 (0.7-1.2) mg/dl Glucose 454 H* (70-105) mg/dL Hemoglobin A1c 9.9 H (4.0-6.0) % HGB Calcium 7.7 L (8.6-10.4) mg/dl AST 21 (0-37) U/l ALT 10 (0-40) U/l Alkaline Phosphatase 69 (39-117) U/L Total Protein 8.2 (5.9-8.4) gm/dL Albumin 2.2 L (3.2-5.2) gm/dL Calcium panel 02/19/20 Range/Units 11:09 Calcium 7.7 L (8.6-10.4) mg/dl Albumin 2.2 L (3.2-5.2) gm/dL Pituitary panel 02/19/20 Range/Units 11:09 Sodium 122 L (133-145) mmol/L Potassium 3.6 (3.3-5.1) mmol/L Chloride 90 L (96-108) mmol/L Carbon Dioxide 19 L (22-30) mmol/L BUN 5 L (6-20) mg/dl Creatinine 0.7 (0.7-1.2) mg/dl Glucose 454 H* (70-105) mg/dL Calcium 7.7 L (8.6-10.4) mg/dl Adrenal panel 02/19/20 Range/Units 11:09 Sodium 122 L (133-145) mmol/L Potassium 3.6 (3.3-5.1) mmol/L Chloride 90 L (96-108) mmol/L Carbon Dioxide 19 L (22-30) mmol/L BUN 5 L (6-20) mg/dl Creatinine 0.7 (0.7-1.2) mg/dl Glucose 454 H* (70-105) mg/dL Calcium 7.7 L (8.6-10.4) mg/dl Total Bilirubin 1.6 H (0.0-1.0) mg/dL AST 21 (0-37) U/l ALT 10 (0-40) U/l Alkaline Phosphatase 69 (39-117) U/L Total Protein 8.2 (5.9-8.4) gm/dL Albumin 2.2 L (3.2-5.2) gm/dL All other labs normal. 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 Hyperglycemia and Electrolyte balance improving. Plan; Refer to Orthopedics, KERMIT Matias. Patient needs BKA. I spoke with patient at length and answered all his questions. He understands and agrees for BKA. Status: Acute Priority: High (2) Cellulitis Status: Acute Priority: High Qualifiers: Site of cellulitis: extremity Site of cellulitis of extremity: toe Laterality: left Qualified Code(s): L03.032 - Cellulitis of left toe (3) Osteomyelitis of left foot Status: Acute Priority: High Qualifiers: Osteomyelitis type: other acute Qualified Code(s): M86.172 - Other acute osteomyelitis, left ankle and foot (4) Hyperglycemia Status: Acute Priority: Medium Comment: IMPROVING with treatment. (5) Hyponatremia Status: Acute Priority: Medium Comment: Improving with treatment.
[2020-02-19] MEDS: metroNIDAZOLE 500 MG/100 ML BAG IV SCH ×2 (18:04→23:27)
[2020-02-19] MEDS: CEFEPIME 2 GM VIAL IV SCH (18:21)
[2020-02-19] MEDS ORDERED: INSULIN REGULAR, HUMAN 1 UNIT/0.01 ML UNIT ONE (19:10)
[2020-02-19] MEDS: DOCUSATE SODIUM 100 MG CAPSULE PO SCH (20:00)
[2020-02-19] MEDS: HEPARIN 5,000 UNIT/ML VIAL SQ SCH (20:00)
[2020-02-19] MEDS: LACTOBACILLUS 1 CAPSULE PO SCH (20:00)
[2020-02-19] MEDS: INSULIN GLARGINE, HUMAN 1 UNIT/0.01 ML SQ SCH (20:00)
[2020-02-19] MEDS: 0.9 % SODIUM CHLORIDE 10 ML SYRINGE IV SCH (22:06)
[2020-02-19] MEDS ORDERED: INSULIN LISPRO 1 UNIT/0.01 ML UNIT SQ ONE ×2 (22:15→23:34)
[2020-02-20] MEDS: CEFEPIME 2 GM VIAL IV SCH ×3 (00:57→20:25)
[2020-02-20] MEDS: 0.9 % SODIUM CHLORIDE 1,000 ML IV SCH (05:44)
[2020-02-20] MEDS: metroNIDAZOLE 500 MG/100 ML BAG IV SCH ×3 (05:44→20:42)
[2020-02-20] MEDS: 0.9 % SODIUM CHLORIDE 10 ML SYRINGE IV SCH ×4 (05:45→22:00)
[2020-02-20 06:20] LABS: Hematocrit 21.6 % (40.1-51.0); Hemoglobin 7.1 g/dL (13.7-17.5); Mean Cell Volume 95.6 fL (80.0-100.0); Mean Corpuscular HGB Conc 32.9 g/dL (31.0-36.0); Mean Platelet Volume 12.3 fL (7.4-10.4); Platelet Count 60 K/mcL (140-440); RBC 2.26 M/mcL (4.63-6.08); Red Cell Distribution Width 14.2 % (11.5-14.5); WBC 5.4 K/mcL (4.50-11.00)
[2020-02-20 06:34] LABS: INR 1.5 (0.9-1.1); Prothrombin Time 18.6 sec (11.9-14.5)
[2020-02-20 06:49] LABS: ALT/SGPT 9 U/l (0-40); AST/SGOT 17 U/l (0-37); Albumin 1.9 gm/dL (3.2-5.2); Albumin/Globulin Ratio 0.4 (1.0-2.3); Alkaline Phosphatase 55 U/L (39-117); Bilirubin,Direct 0.6 mg/dL (0.0-0.3); Bilirubin,Total 1.4 mg/dL (0.0-1.0); Blood Urea Nitrogen 6 mg/dl (6-20); Calcium 7.4 mg/dl (8.6-10.4); Carbon Dioxide 22 mmol/L (22-30); Chloride 103 mmol/L (96-108); Globulin 5.3 gm/dL (2.2-3.7); Glomerular Filtration Rate 117; Glucose 109 mg/dL (70-105); Lactate Dehydrogenase 136 U/L (94-250); Phosphorous 2.2 mg/dL (2.7-4.5); Triglycerides 76 mg/dl (<150); Uric Acid 2.4 mg/dL (2.5-8.0)
[2020-02-20 07:18] LABS: Eosinophils % (Manual) 3 % (0-7); Lymphocytes % 21 % (15-49); Monocytes % (Manual) 5 % (1-12); Platelet Estimate DECREASED (NORMAL); RBC Morphology NORMAL (NORMAL); Reactive Lymphocytes 2 % (0-2); Segmented Neutrophils % 69 % (38-78)
--- NOTE | 2020-02-20 07:41 | Internal Med Progress Note ---
Medical - PN: Subj Patient information: Note initiated : 02/20/20 at 7:38 am Service Date, if different from initiated Date: [] Patient: Tarun Molina 49 y/o M admitted on 02/19/20 for black tissues to left foot. Chief Complaint: [] Interval history: Mr. Molina is a 49 year old M 49-year-old male who was last admitted in October for DKA and abscess along his thoracic wall now presents for wound of the left foot this been there for several months. This wound he says started a blister has progressed. He was supposed to see Dr. Montemayor but missed his appointment. He saw at the [facility] clinic today who said he needed to come into the hospital because of his foot. Patient states his foot has a foul odor and has been swelling and draining pus. He states he has had fevers and chills recently past several weeks. He is a diabetic but arrived in the ED drinking a DrPallavi Blanchard slushy. He says he misses a lot of doses of insulin because he does not feel like getting up or taking it. He also has short acting for meals which she has not been taking. Has not been adhering to diabetic diet. In the ED had a temperature of 100.6. He was hyponatremic. Lactate was 2.7. Blood glucose is 454 in the ED. Left foot MRI shows cellulitis and osteomyelitis. 02/19 No issues overnight. Off insulin drip. Occasional headache. Seen by Dr. Thompson who will talk to Dr. Figueredo about below the knee amputation. Review of Systems: denies fever/chills/nausea/vomiting/chest or abdominal pain/cough/dyspnea/diarrhea. Otherwise see above. - Constitutional Vitals: Vital Signs Temp Pulse Resp BP Pulse Ox 98.6 F 78 20 102/60 95 02/20/20 04:00 02/20/20 04:00 02/20/20 04:00 02/20/20 04:00 02/20/20 04:00 Period Temp Pulse Resp BP Sys/Garcia Pulse Ox Last 24 Hr 98.2 F-100.9 F 78-93 14-22 93-127/59-80 93-100 Intake and Output 02/19/20 02/20/20 02/20/20 21:59 05:59 13:59 Intake Total 1554 1640 Output Total 700 775 Balance 854 865 Weight 101.378 kg Intake & Output: Intake & Output 02/19/20 02/20/20 02/20/20 21:59 05:59 13:59 Intake Total 1554 1640 Output Total 700 775 Balance 854 865 Weight 101.378 kg Intake: IV 1204 1100 Sodium Chloride 0.9% 1,000 ml @ 1000 1000 100 mls/hr IV .Q10H [facility] Rx#: [id number] Cleocin 600 mg In Dextrose 5% 54 in Water 50 ml @ 100 mls/hr IV ONCE ONE Rx#:[id number] Oral 350 540 Output: Void Amount 700 775 Other: Meal Dinner Percent of Meal Consumed 100% Urine Appearance Clear Clear Urine Color Dark Bing Dark Bing Urine Odor Normal Normal Exam: General: Alert, Awake, No acute Distress, obese Eyes/N/T: EOMI, Head/Neck: neck supple, CV: RRR, 1/6 SM Pulm: Clear b/l, no wheezing/rhonchi/rales Abd: soft, nontender, +BS x4 Ext: LLE 1+ edema. RLE 2+ edema, foot with larger wound plantar and lateral aspect with purulent drainage and foul odor as well as eschar, swelling. Neuro: Alert, no focal deficits, moves all extremities, Skin: warm/dry Medical - PN: Obj Da - Labs CBC & Chem 7: 02/20/20 04:35 02/20/20 04:35 Labs: Abnormal Lab Results 02/20/20 02/20/20 02/20/20 04:35 04:35 04:35 RBC 2.26 L Hgb 7.1 L Hct 21.6 L Plt Count 60 L MPV 12.3 H WBC Morphology Toxic Granulation Dohle Bodies Platelet Estimate Decreased A RBC Morphology Polychromasia Hypochromasia PT 18.6 H INR 1.5 H VBG Lactic Acid Sodium Chloride Carbon Dioxide BUN Creatinine 0.6 L Glucose 109 H Hemoglobin A1c Uric Acid 2.4 L Calcium 7.4 L Phosphorus 2.2 L Magnesium Total Bilirubin 1.4 H Direct Bilirubin 0.6 H C-Reactive Protein Albumin 1.9 L Globulin 5.3 H Albumin/Globulin Ratio 0.4 L Beta-Hydroxybutyrate 02/19/20 02/19/20 02/19/20 11:09 11:09 11:09 RBC Hgb Hct Plt Count MPV WBC Morphology Toxic Granulation Dohle Bodies Platelet Estimate RBC Morphology Polychromasia Hypochromasia PT INR VBG Lactic Acid 2.7 H Sodium Chloride Carbon Dioxide BUN Creatinine Glucose Hemoglobin A1c 9.9 H Uric Acid Calcium Phosphorus Magnesium 1.5 L Total Bilirubin Direct Bilirubin C-Reactive Protein Albumin Globulin Albumin/Globulin Ratio Beta-Hydroxybutyrate 0.95 H 02/19/20 02/19/20 11:09 11:09 RBC 2.70 L Hgb 8.4 L Hct 25.2 L Plt Count 58 L MPV 12.6 H WBC Morphology Abnorm A Toxic Granulation Few A Dohle Bodies 1+ A Platelet Estimate Decreased A RBC Morphology Abnorm A Polychromasia 1+ A Hypochromasia 1+ A PT INR VBG Lactic Acid Sodium 122 L Chloride 90 L Carbon Dioxide 19 L BUN 5 L Creatinine Glucose 454 H* Hemoglobin A1c Uric Acid Calcium 7.7 L Phosphorus Magnesium Total Bilirubin 1.6 H Direct Bilirubin C-Reactive Protein 10.3 H Albumin 2.2 L Globulin 6.0 H Albumin/Globulin Ratio 0.4 L Beta-Hydroxybutyrate Meds: Medications Acetaminophen (Tylenol) 650 mg PO Q6HP PRN PRN Reason: PAIN/FEVER > 101 Last Admin: 02/19/20 23:33 Dose: 650 mg Documented by: Hydrocodone Bitart/Acetaminophen ([place] 5/325mg) 1 tab PO Q4HP PRN PRN Reason: PAIN LEVEL 3-6 Albuterol/Ipratropium (Duoneb) 3 ml NEB Q4HP PRN PRN Reason: Shortness Of Breath Cefepime HCl (Maxipime) 2 gm IV Q12H [facility]; Protocol Last Admin: 02/20/20 00:57 Dose: 2 gm Documented by: Diagnostic Test (Pha) (Accu-Chek) 1 each FS Q4 [facility]; Protocol Last Admin: 02/20/20 04:00 Dose: 1 each Documented by: Docusate Sodium (Colace) 100 mg PO BID [facility] Last Admin: 02/19/20 20:00 Dose: 100 mg Documented by: Heparin Sodium (Porcine) (Heparin) 5,000 unit SQ Q12 [facility] Last Admin: 02/19/20 20:00 Dose: 5,000 unit Documented by: Potassium Chloride 40 meq/ (Dextrose) 520 mls @ 130 mls/hr IV UD PRN PRN Reason: Potassium < 3 Magnesium Sulfate (Magnesium Sulfate) 2 gm in 50 mls @ 50 mls/hr IV UD PRN PRN Reason: Magnesium </= 1.6 Sodium Chloride (Sodium Chloride 0.9%) 1,000 mls @ 100 mls/hr IV .Q10H [facility] Stop: 02/20/20 12:11 Last Admin: 02/20/20 05:44 Dose: 100 mls/hr Documented by: Metronidazole (Flagyl) 500 mg in 100 mls @ 100 mls/hr IV Q8H [facility]; Protocol Last Admin: 02/20/20 05:44 Dose: 100 mls/hr Documented by: Insulin Human Regular 50 unit/ (Sodium Chloride) 100 mls @ 0 mls/hr IV DUR [facility]; Protocol Insulin Glargine (Lantus) 65 unit SQ BID [facility] Last Admin: 02/19/20 20:00 Dose: 65 unit Documented by: Lactobacillus Rhamnosus (Culturelle) 1 cap PO BID [facility] Last Admin: 02/19/20 20:00 Dose: 1 cap Documented by: Ondansetron HCl (Zofran) 4 mg IV Q4HP PRN PRN Reason: Nausea And Vomiting Polyethylene Glycol (Miralax) 17 gm PO DAILYP PRN PRN Reason: Constipation Potassium Chloride (Kdur) 40 meq PO UD PRN PRN Reason: Potssium is 3-3.5 Potassium Chloride (Kdur) 40 meq PO UD PRN PRN Reason: Potassium < 3 Senna (Senokot) 2 tab PO DAILYP PRN PRN Reason: Constipation Sodium Chloride (Saline Flush) 10 ml IV Q8 [facility] Last Admin: 02/20/20 05:45 Dose: 10 ml Documented by: Medical - PN: A/P - Time Spent With Patient Total time spent is greater than 50% in coordination of care (as documented) at patient's floor/unit and/or counseling patient: - Narrative A/P Narrative: Assessment: *Diabetic left foot wound/cellulitis with Osteomyelitis, severe and with foul odor: -h/o MSSA -febrile last night *DM II w/Hyperglycemia 450 on admit: 2/2 noncompliance with medications and diet -A1c 13 in October, now 10 *lactic acidosis: resolved *Hyponatremia: corrected is 128 on admit, resolved *Cirrhosis w/thrombocytopenia: has had extensive w/u to determine etiology but likely etoh *Anemia, chronic: *Obesity: Plan: -Cefepime/flagyl, pending WC/BC -Dr. Thompson following and will d/w Dr. Jimenez regarding BKA -IVF's d/c -DM education -basal and SSI -restart home Lasix/aldactone in AM - -pt/ot -ppx: heparin (hold if PLT<50k) full code Medical - PN: Qual - Stroke Symptom Onset Unknown: No - VTE Deep Vein Thrombosis/Pulmonary Embolism Present on Admission: No
[2020-02-20] MEDS ORDERED: INSULIN REGULAR, HUMAN 50 UNIT in 0.9 % SODIUM CHLORIDE 99.5 ML IV PRN (08:45)
[2020-02-20] MEDS: LACTOBACILLUS 1 CAPSULE PO SCH ×2 (09:43→20:24)
[2020-02-20] MEDS: HEPARIN 5,000 UNIT/ML VIAL SQ SCH ×2 (09:43→20:24)
[2020-02-20] MEDS: INSULIN GLARGINE, HUMAN 1 UNIT/0.01 ML SQ SCH ×2 (09:43→20:22)
[2020-02-20] MEDS: DOCUSATE SODIUM 100 MG CAPSULE PO SCH ×2 (09:43→20:24)
[2020-02-20] MEDS: INSULIN LISPRO 1 UNIT/0.01 ML UNIT SQ SCH ×3 (12:29→20:23)
--- NOTE | 2020-02-20 20:44 | Consultation ---
DATE OF CONSULTATION: 02/20/2020 Thank you for this consultation. HISTORY OF PRESENT ILLNESS: As you know, the patient is a 49-year-old male who presents with chief complaint of left foot swelling, foul smell, and chronic ulcers and wounds that have not healed. He was seen in the Emergency Room on 02/19/2020 and had diabetic ketoacidosis. He was admitted to the hospital for control. He was supposed to see Dr. Montemayor, but missed his appointment for these chronic wounds. He saw doctor at the [facility]. Today, he said he needed to come to the hospital because of his foot. The patient states that his foot has been foul odor and it has been swelling and draining pus. He states that he has had a fever with chills recently. Both of his diet has consisted of drinking Dr. Peppers and slushies because of the need for sweet. He feels his normal level of insulin is about 400. He misses using the insulin on most meals, he states. He had a temperature in the ED on admit of 100.6. He is hyponatremic, and his lactate is 2.7. He has been stabilized from blood sugar level of 454 down to 109 as of last count. He has had an MRI of the left foot with osteomyelitis. He has had no issues overnight. He has been on an insulin drip that has been quite successful. REVIEW OF SYSTEMS: He has the inability to use the left foot because of pain, swelling, drainage. He notes no recent trauma, but the ulcers have been getting worse, and he notes that his toes have been getting dark. MEDICATIONS: He does use insulin on occasion, but not regular. He does use Tylenol on occasion. REVIEW OF SYSTEMS: Denies fever, chills, nausea, vomiting. He has no abdominal pain, no cough, no dyspnea, no diarrhea. PHYSICAL EXAMINATION: GENERAL: He is alert, cooperative, he gives a good history with memory. He is in no acute distress. HEENT: Eyes: Extraocular movements intact. HEAD AND NECK: Supple, nontender. He is unshaven. CARDIOVASCULAR: He has 1/6 systolic murmur with a regular rate. PULMONARY: No shortness of breath, no wheezing, no rhonchi. ABDOMEN: Soft, nontender. EXTREMITIES: Does demonstrate a left lower extremity with 2+ edema with erythema around both the plantar and dorsum of the foot. He has 2 toes that are fairly necrotic and very dark. There is quite a foul smell to the foot as if there is tissue. The plantar surface of the foot has a draining and open wound on the plantar area that is greenish with tendons exposed and a foul smelling greenish material coming from the wound that has been dressed nicely. NEUROLOGIC: He is alert, no deficits other than decreased sensation to the foot on the left side. He has poor refill up to about the mid foot and to the ankle level. TEST REVIEW: His labs do confirm that a hematocrit of 21.6 and albumin level of 1.9. With these findings, we have encouraged nutrition, and he has been consulted with the provider relations advocate. His medications were reviewed. These include Tylenol 650 mg p.r.n. for pain, hydrocodone 5/325 p.o. every day, albuterol inhaler. His MRI shows osteomyelitis of the foot with open wounds necrotic toes. ASSESSMENT AND PLAN: 1. Diabetic left foot with cellulitis, osteomyelitis, severe foul odor with tissue. The plan is an amputation below the knee which the patient was consulted for and will arrange for this to be done in the morning. 2. Diabetes 2, it has been controlled, it has come down from 454 down to 109 today. His A1c is 13. His lactic acid is resolving. His hyponatremia is improved up to 128 from admit. Cirrhosis and thrombocytopenia has had extensive workup to determine etiology, but likely due to alcohol abuse, anemia, and chronic due to the liver problems, obesity. PLAN: The above BKA. I consulted with Dr. Thompson, and he agrees with these findings that this is not a salvageable foot and may be life threatening. He has been on IV antibiotics. He has been receiving diabetic education. SSIs have been in touch to coordinate living conditions. The patient will be arranged for surgery tomorrow. He understands the risks and benefits of the surgery. The risk is bleeding, heart attack, stroke, and even . The benefit is will save his life. This foot will eventually take his life and make it impossible to control his diabetes. This foot is nonsalvageable, and he agrees with the above-mentioned plan. RB:in Job ID: [id number] Doc ID: [id number] Stefan Jimenez MD
[2020-02-20] MEDS ORDERED: ACETAMINOPHEN 325 MG TABLET PO PRN (21:46)
[2020-02-20] MEDS ORDERED: SENNOSIDES 1 TABLET PO PRN (21:46)
[2020-02-20] MEDS ORDERED: POTASSIUM CHLORIDE 20 MEQ TABLET PO PRN ×2 (21:46)
[2020-02-20] MEDS ORDERED: ONDANSETRON 4 MG/2 ML VIAL IV PRN (21:46)
[2020-02-20] MEDS ORDERED: MAGNESIUM SULFATE 2 GM/50 ML BAG IV PRN (21:46)
[2020-02-20] MEDS ORDERED: POLYETHYLENE GLYCOL 3350 17 GM PACKET PO PRN (21:46)
[2020-02-20] MEDS ORDERED: POTASSIUM CHLORIDE 40 MEQ in DEXTROSE 5% IN WATER 500 ML IV PRN (21:46)
[2020-02-20] MEDS ORDERED: IPRATROPIUM/ALBUTEROL 3 ML AMPUL.NEB NEB PRN (21:46)
[2020-02-21] MEDS: 0.9 % SODIUM CHLORIDE 10 ML SYRINGE IV SCH ×3 (05:44→21:07)
[2020-02-21] MEDS: metroNIDAZOLE 500 MG/100 ML BAG IV SCH ×3 (05:50→22:00)
[2020-02-21 06:18] LABS: Basophils # (Auto) 0 K/mcL (0.00-0.30); Basophils % (Auto) 0 % (0.0-2.0); Eosinophils # (Auto) 0.07 K/mcL (0.00-0.70); Eosinophils % (Auto) 1.4 % (0.0-7.0); Granulocytes % (Auto) 70.7 % (38.0-78.0); Hematocrit 22.9 % (40.1-51.0); Hemoglobin 7.5 g/dL (13.7-17.5); Lymphocytes # (Auto) 1.06 K/mcL (1.50-4.80); Lymphocytes % (Auto) 21.9 % (15.5-49.0); Mean Cell Volume 94.6 fL (80.0-100.0); Mean Corpuscular HGB Conc 32.8 g/dL (31.0-36.0); Mean Platelet Volume 12.1 fL (7.4-10.4); Monocytes # (Auto) 0.29 K/mcL (0.10-0.90); Platelet Count 60 K/mcL (140-440); RBC 2.42 M/mcL (4.63-6.08); Red Cell Distribution Width 14.3 % (11.5-14.5); WBC 4.8 K/mcL (4.50-11.00)
[2020-02-21 06:23] LABS: ALT/SGPT 8 U/l (0-40); AST/SGOT 19 U/l (0-37); Alkaline Phosphatase 62 U/L (39-117); Bilirubin,Total 0.8 mg/dL (0.0-1.0); Blood Urea Nitrogen 6 mg/dl (6-20); Calcium 7.2 mg/dl (8.6-10.4); Carbon Dioxide 22 mmol/L (22-30); Chloride 103 mmol/L (96-108); Glomerular Filtration Rate 126; Glucose 114 mg/dL (70-105); Lactate Dehydrogenase 143 U/L (94-250); Triglycerides 72 mg/dl (<150); Uric Acid 2.2 mg/dL (2.5-8.0)
[2020-02-21 06:26] LABS: Albumin 1.8 gm/dL (3.2-5.2); Albumin/Globulin Ratio 0.3 (1.0-2.3); Bilirubin,Direct 0.3 mg/dL (0.0-0.3); Globulin 5.4 gm/dL (2.2-3.7); Phosphorous 1.7 mg/dL (2.7-4.5)
[2020-02-21] MEDS ORDERED: POTASSIUM PHOSPHATE 40 MEQ in DEXTROSE 5% IN WATER 500 ML IV ONE (07:38)
--- NOTE | 2020-02-21 07:39 | Internal Med Progress Note ---
Medical - PN: Subj Patient information: Note initiated : 02/21/20 at 7:34 am Service Date, if different from initiated Date: [] Patient: Tarun Molina 49 y/o M admitted on 02/19/20 for black tissues to left foot. Chief Complaint: [] Interval history: Mr. Molina is a 49 year old M 49-year-old male who was last admitted in October for DKA and abscess along his thoracic wall now presents for wound of the left foot this been there for several months. This wound he says started a blister has progressed. He was supposed to see Dr. Montemayor but missed his appointment. He saw at the [facility] clinic today who said he needed to come into the hospital because of his foot. Patient states his foot has a foul odor and has been swelling and draining pus. He states he has had fevers and chills recently past several weeks. He is a diabetic but arrived in the ED drinking a DrPallavi Blanchard slushy. He says he misses a lot of doses of insulin because he does not feel like getting up or taking it. He also has short acting for meals which she has not been taking. Has not been adhering to diabetic diet. In the ED had a temperature of 100.6. He was hyponatremic. Lactate was 2.7. Blood glucose is 454 in the ED. Left foot MRI shows cellulitis and osteomyelitis. 02/19 No issues overnight. Off insulin drip. Occasional headache. Seen by Dr. Thompson who will talk to Dr. Figueredo about below the knee amputation. 02/20 Patient doing well. Slept all right. No overnight events. Dr. Figueredo for left BKA this morning. Review of Systems: denies fever/chills/nausea/vomiting/chest or abdominal pain/cough/dyspnea/diarrhea. Otherwise see above. - Constitutional Vitals: Vital Signs Temp Pulse Resp BP Pulse Ox 99.9 F H 88 20 115/63 93 02/21/20 04:00 02/20/20 23:45 02/21/20 04:00 02/21/20 04:00 02/21/20 04:00 Period Temp Pulse Resp BP Sys/Garcia Pulse Ox Last 24 Hr 97.2 F-100.1 F 72-92 98-121/57-71 93-100 Intake and Output 02/20/20 02/21/20 02/21/20 21:59 05:59 13:59 Intake Total 1680 360 Output Total 500 0 Balance 1180 360 Weight 110.903 kg Intake & Output: Intake & Output 02/20/20 02/21/20 02/21/20 21:59 05:59 13:59 Intake Total 1680 360 Output Total 500 0 Balance 1180 360 Weight 110.903 kg Intake: IV 1200 Sodium Chloride 0.9% 1,000 ml @ 1000 100 mls/hr IV .Q10H [facility] Rx#: [id number] Oral 480 360 Output: Void Amount 500 0 Other: Meal Dinner Percent of Meal Consumed 100% Stool Size Large Stool Color Green Stool Consistency Soft # Bowel Movements 1 Exam: General: Alert, Awake, No acute Distress, obese Eyes/N/T: EOMI, Head/Neck: neck supple, CV: RRR, 1/6 SM Pulm: Clear b/l, no wheezing/rhonchi/rales Abd: soft, nontender, +BS x4 Ext: RLE 1+ edema. LLE 2+ edema, foot with larger wound plantar and lateral aspect with purulent drainage and foul odor as well as eschar, swelling. Neuro: Alert, no focal deficits, moves all extremities, Skin: warm/dry Medical - PN: Obj Da - Labs CBC & Chem 7: 02/21/20 04:44 02/21/20 04:44 Labs: Abnormal Lab Results 02/21/20 02/21/20 02/20/20 04:44 04:44 04:35 RBC 2.42 L 2.26 L Hgb 7.5 L 7.1 L Hct 22.9 L 21.6 L Plt Count 60 L 60 L MPV 12.1 H 12.3 H Lymph # (Auto) 1.06 L WBC Morphology Toxic Granulation Dohle Bodies Platelet Estimate Decreased A RBC Morphology Polychromasia Hypochromasia PT INR VBG Lactic Acid Sodium 132 L Potassium 3.2 L Chloride Carbon Dioxide Anion Gap 7.0 L BUN Creatinine 0.5 L Glucose 114 H Hemoglobin A1c Uric Acid 2.2 L Calcium 7.2 L Phosphorus 1.7 L Magnesium Total Bilirubin Direct Bilirubin C-Reactive Protein Albumin 1.8 L Globulin 5.4 H Albumin/Globulin Ratio 0.3 L Beta-Hydroxybutyrate 02/20/20 02/20/2002/18/20 04:35 04:35 11:09 RBC Hgb Hct Plt Count MPV Lymph # (Auto) WBC Morphology Toxic Granulation Dohle Bodies Platelet Estimate RBC Morphology Polychromasia Hypochromasia PT 18.6 H INR 1.5 H VBG Lactic Acid Sodium Potassium Chloride Carbon Dioxide Anion Gap BUN Creatinine 0.6 L Glucose 109 H Hemoglobin A1c 9.9 H Uric Acid 2.4 L Calcium 7.4 L Phosphorus 2.2 L Magnesium 1.5 L Total Bilirubin 1.4 H Direct Bilirubin 0.6 H C-Reactive Protein Albumin 1.9 L Globulin 5.3 H Albumin/Globulin Ratio 0.4 L Beta-Hydroxybutyrate 02/19/20 02/19/20 02/19/20 11:09 11:09 11:09 RBC Hgb Hct Plt Count MPV Lymph # (Auto) WBC Morphology Toxic Granulation Dohle Bodies Platelet Estimate RBC Morphology Polychromasia Hypochromasia PT INR VBG Lactic Acid 2.7 H Sodium 122 L Potassium Chloride 90 L Carbon Dioxide 19 L Anion Gap BUN 5 L Creatinine Glucose 454 H* Hemoglobin A1c Uric Acid Calcium 7.7 L Phosphorus Magnesium Total Bilirubin 1.6 H Direct Bilirubin C-Reactive Protein 10.3 H Albumin 2.2 L Globulin 6.0 H Albumin/Globulin Ratio 0.4 L Beta-Hydroxybutyrate 0.95 H 02/19/20 11:09 RBC 2.70 L Hgb 8.4 L Hct 25.2 L Plt Count 58 L MPV 12.6 H Lymph # (Auto) WBC Morphology Abnorm A Toxic Granulation Few A Dohle Bodies 1+ A Platelet Estimate Decreased A RBC Morphology Abnorm A Polychromasia 1+ A Hypochromasia 1+ A PT INR VBG Lactic Acid Sodium Potassium Chloride Carbon Dioxide Anion Gap BUN Creatinine Glucose Hemoglobin A1c Uric Acid Calcium Phosphorus Magnesium Total Bilirubin Direct Bilirubin C-Reactive Protein Albumin Globulin Albumin/Globulin Ratio Beta-Hydroxybutyrate Meds: Medications Acetaminophen (Tylenol) 650 mg PO Q6HP PRN PRN Reason: PAIN/FEVER > 101 Hydrocodone Bitart/Acetaminophen ([place] 5/325mg) 1 tab PO Q4HP PRN PRN Reason: PAIN LEVEL 3-6 Albuterol/Ipratropium (Duoneb) 3 ml NEB Q4HP PRN PRN Reason: Shortness Of Breath Cefepime HCl (Maxipime) 2 gm IV Q12H [facility]; Protocol Diagnostic Test (Pha) (Accu-Chek) 1 each FS ACHS [facility]; Protocol Docusate Sodium (Colace) 100 mg PO BID [facility] Heparin Sodium (Porcine) (Heparin) 5,000 unit SQ Q12 [facility] Potassium Chloride 40 meq/ (Dextrose) 520 mls @ 130 mls/hr IV UD PRN PRN Reason: Potassium < 3 Magnesium Sulfate (Magnesium Sulfate) 2 gm in 50 mls @ 50 mls/hr IV UD PRN PRN Reason: Magnesium </= 1.6 Metronidazole (Flagyl) 500 mg in 100 mls @ 100 mls/hr IV Q8H [facility]; Protocol Last Admin: 02/21/20 05:50 Dose: 100 mls/hr Documented by: Insulin Glargine (Lantus) 65 unit SQ BID [facility] Insulin Human Lispro (Humalog) 0 unit SQ ACHS [facility]; Protocol Lactobacillus Rhamnosus (Culturelle) 1 cap PO BID [facility] Ondansetron HCl (Zofran) 4 mg IV Q4HP PRN PRN Reason: Nausea And Vomiting Polyethylene Glycol (Miralax) 17 gm PO DAILYP PRN PRN Reason: Constipation Potassium Chloride (Kdur) 40 meq PO UD PRN PRN Reason: Potssium is 3-3.5 Potassium Chloride (Kdur) 40 meq PO UD PRN PRN Reason: Potassium < 3 Senna (Senokot) 2 tab PO DAILYP PRN PRN Reason: Constipation Sodium Chloride (Saline Flush) 10 ml IV Q8 [facility] Last Admin: 02/21/20 05:44 Dose: 10 ml Documented by: Medical - PN: A/P - Time Spent With Patient Total time spent is greater than 50% in coordination of care (as documented) at patient's floor/unit and/or counseling patient: - Narrative A/P Narrative: Assessment: *Diabetic left foot wound/cellulitis with Osteomyelitis, severe and with foul odor: -h/o MSSA; -WC growing Strep agalactiae and GNB -Tmax 100.1 last night *DM II w/Hyperglycemia 450 on admit: 2/2 noncompliance with medications and diet -A1c 13 in October, now 10 *lactic acidosis: resolved *Hyponatremia: corrected is 128 on admit, improved *Hypophos/ayaan: *Cirrhosis w/thrombocytopenia: has had extensive w/u to determine etiology but likely etoh *Anemia, chronic: *Obesity: Plan: -Cefepime/flagyl, pending WC/BC -Dr. Thompson following and Dr. Jimenez who will perform BKA today -DM education -basal and SSI -restart home Lasix/aldactone in AM -Electrolyte replacement -pt/ot -ppx: heparin (hold if PLT<50k) full code Medical - PN: Qual - Stroke Symptom Onset Unknown: No - VTE Deep Vein Thrombosis/Pulmonary Embolism Present on Admission: No
[2020-02-21] MEDS: LACTOBACILLUS 1 CAPSULE PO SCH ×2 (08:06→21:07)
[2020-02-21] MEDS: DOCUSATE SODIUM 100 MG CAPSULE PO SCH ×2 (08:06→21:07)
[2020-02-21] MEDS: INSULIN GLARGINE, HUMAN 1 UNIT/0.01 ML SQ SCH ×2 (08:07→21:05)
[2020-02-21] MEDS ORDERED: INSULIN GLARGINE, HUMAN 1 UNIT/0.01 ML SQ ONE (08:08)
[2020-02-21] MEDS: CEFEPIME 2 GM VIAL IV SCH ×2 (08:51→21:15)
[2020-02-21] MEDS: INSULIN LISPRO 1 UNIT/0.01 ML UNIT SQ SCH ×4 (08:52→21:06)
[2020-02-21] MEDS ORDERED: 0.9 % SODIUM CHLORIDE 250 ML IV SCH ×2 (09:00→09:15)
[2020-02-21] MEDS ORDERED: HEPARIN 5,000 UNIT/ML VIAL SQ SCH (09:00)
[2020-02-21] MEDS ORDERED: ALBUMIN HUMAN 37.5 GM/150 ML BAG IV ONE ×2 (09:09→09:15)
[2020-02-21] MEDS ORDERED: PHENYLEPHRINE 10 MG/ML VIAL IV ONE (10:23)
[2020-02-21] MEDS ORDERED: KETAMINE 100 MG/ML ML IV ONE (10:23)
[2020-02-21] MEDS ORDERED: fentaNYL 100 MCG/2 ML VIAL IV ONE (10:23)
[2020-02-21] MEDS ORDERED: PROPOFOL 200 MG/20 ML VIAL IV ONE (10:23)
[2020-02-21] MEDS ORDERED: TRANEXAMIC ACID 1,000 MG/10 ML VIAL IV ONE (10:23)
[2020-02-21] MEDS ORDERED: DEXAMETHASONE 10 MG/ML VIAL IV ONE (10:23)
[2020-02-21] MEDS ORDERED: ROPIVACAINE HCL/PF 30 ML VIAL IJ ONE (10:23)
[2020-02-21] MEDS ORDERED: LIDOCAINE HCL/PF 100 MG/5 ML SYRINGE IV ONE (10:23)
[2020-02-21] MEDS ORDERED: ONDANSETRON 4 MG/2 ML VIAL IV ONE (10:23)
[2020-02-21] MEDS ORDERED: POTASSIUM CHLORIDE 40 MEQ/100 ML BAG IV ONE (10:23)
[2020-02-21] MEDS ORDERED: IPRATROPIUM/ALBUTEROL 3 ML AMPUL.NEB NEB PRN (12:43)
[2020-02-21] MEDS ORDERED: fentaNYL 100 MCG/2 ML VIAL IV PRN (12:43)
[2020-02-21] MEDS ORDERED: LACTATED RINGERS 1,000 ML IV SCH (12:45)
--- NOTE | 2020-02-21 13:45 | Operative Note ---
DATE OF OPERATION: 02/21/2020 PREOPERATIVE DIAGNOSIS: Left necrotic foot with wet gangrene. POSTOPERATIVE DIAGNOSIS: Left necrotic foot with wet gangrene. PROCEDURE: Left [id number] amputation. SURGEON: Stefan Jimenez MD HAND STAPLER: Jose Juan Thomas PA-C. This provider's expertise and technical skill were required throughout the case. The JF assisted with preoperative coordination, intraoperative retraction, wound closure, dressing and splint application, as well as postoperative documentation and care coordination. ANESTHESIA: General LMA anesthesia. COMPLICATIONS: None. TOTAL TOURNIQUET TIME: Approximately 35 mL ESTIMATED BLOOD LOSS: About 150 to 200 mL TOURNIQUET: 250 mL IMPLANTS: None. DESCRIPTION OF PROCEDURE: The patient was brought to the operating room and put to sleep with general LMA anesthesia. Once asleep, the patient had the left leg sterilely prepped and draped in the usual sterile fashion. Once this was done, we were able to then identify landmarks. We were able to cut the tibia approximately 15 cm below the articular surface using landmarks to identify the incision sites. We then had a timeout performed confirming the operative site by initials, consent form and x-rays. Once all confirmed, we were able to then make an incision through the skin after exsanguinating the leg and inflating the tourniquet to 250 pounds of pressure. We were able to make a standard below-knee amputation incision 15 cm below the articular surface. A fishmouth incision was made. We then identified the bony layers. These were cut and then we used the amputation knife to release the muscles in the posterior compartment. The vessels and nerves were all identified, the vessels were tied off with ties. The posterior tibial nerve was resected proximally. The peroneal compartment was identified and vessels also tied off. The saphenous nerve and vein were also identified and also tied. We then cut the fibula approximately 2-3 cm more proximal than the tibia. An anterior chamfer was made on the tibia to round the edges as well. We irrigated thoroughly and then we deflated the tourniquet. The bleeding was controlled. We then repaired the fascial layer with 2-0 Vicryl and Stratafix. The skin was closed with 2-0 Vicryl and josué superficially. The patient tolerated this well. There was good skin coverage, good tissue, and good bleeding at the end of the case. A sterile bandage was applied. The patient tolerated this well without complication. RBH:isabella Job ID: [id number] Doc ID: [id number] Stefan Jimenez MD
--- NOTE | 2020-02-21 13:46 | Brief Operative Note ---
Date of procedure: 02/21/20 Pre-op diagnosis: left foot wet gangreen Post-op diagnosis: same Procedure: left leg bka Grafts/Implants: Yes Anesthesia: GETA Complications Description: 02/21/20 13:45 none Surgeon: Stefan Jimenez Corporate Planner: Jose Juan Thomas Estimated blood loss (cc): 150 Tourniquet Time (Minutes): 35 Specimens Removed/Pathology: none sent Condition: stable Disposition: PACU
[2020-02-21] MEDS: LACTATED RINGERS 1,000 ML IV SCH (14:02)
[2020-02-21] MEDS ORDERED: INSULIN GLARGINE, HUMAN 1 UNIT/0.01 ML SQ SCH (21:00)
[2020-02-21] MEDS: HEPARIN 5,000 UNIT/ML VIAL SQ SCH (21:06)
[2020-02-21] MEDS: HYDROmorphone* 2 MG/ML VIAL IM PRN (22:01)
[2020-02-21] MEDS: HYDROcodone/APAP 5/325MG TABLET PO PRN (22:02)
[2020-02-22] MEDS: LACTATED RINGERS 1,000 ML IV SCH ×3 (00:35→20:10)
[2020-02-22] MEDS: HYDROmorphone* 2 MG/ML VIAL IM PRN ×3 (00:36→04:14)
[2020-02-22] MEDS: HYDROcodone/APAP 5/325MG TABLET PO PRN ×5 (04:15→22:49)
[2020-02-22] MEDS: metroNIDAZOLE 500 MG/100 ML BAG IV SCH ×3 (06:10→21:24)
[2020-02-22] MEDS: 0.9 % SODIUM CHLORIDE 10 ML SYRINGE IV SCH ×3 (06:15→21:23)
[2020-02-22] MEDS: HYDROmorphone* 2 MG/ML VIAL IV PRN ×5 (06:17→19:12)
[2020-02-22 06:26] LABS: Basophils # (Auto) 0.01 K/mcL (0.00-0.30); Basophils % (Auto) 0.2 % (0.0-2.0); Eosinophils # (Auto) 0.01 K/mcL (0.00-0.70); Eosinophils % (Auto) 0.2 % (0.0-7.0); Granulocytes % (Auto) 80.8 % (38.0-78.0); Hematocrit 26.6 % (40.1-51.0); Hemoglobin 8.7 g/dL (13.7-17.5); Lymphocytes # (Auto) 0.75 K/mcL (1.50-4.80); Lymphocytes % (Auto) 13.1 % (15.5-49.0); Mean Corpuscular HGB Conc 32.7 g/dL (31.0-36.0); Mean Platelet Volume 11.4 fL (7.4-10.4); Monocytes # (Auto) 0.33 K/mcL (0.10-0.90); Monocytes % (Auto) 5.7 % (1.0-12.0); Platelet Count 72 K/mcL (140-440); Red Cell Distribution Width 14.4 % (11.5-14.5); WBC 5.7 K/mcL (4.50-11.00)
[2020-02-22 06:49] LABS: C-Reactive Protein 5.7 mg/dl (0.0-0.8)
[2020-02-22 06:51] LABS: ALT/SGPT 10 U/l (0-40); AST/SGOT 26 U/l (0-37); Albumin 2.2 gm/dL (3.2-5.2); Albumin/Globulin Ratio 0.4 (1.0-2.3); Alkaline Phosphatase 58 U/L (39-117); Bilirubin,Direct 0.4 mg/dL (0.0-0.3); Bilirubin,Total 1.1 mg/dL (0.0-1.0); Blood Urea Nitrogen 10 mg/dl (6-20); Calcium 7.8 mg/dl (8.6-10.4); Carbon Dioxide 24 mmol/L (22-30); Chloride 101 mmol/L (96-108); Globulin 5.7 gm/dL (2.2-3.7); Glomerular Filtration Rate 126; Glucose 282 mg/dL (70-105); Lactate Dehydrogenase 166 U/L (94-250); Phosphorous 2.4 mg/dL (2.7-4.5); Triglycerides 58 mg/dl (<150); Uric Acid 2.1 mg/dL (2.5-8.0)
[2020-02-22] MEDS: INSULIN LISPRO 1 UNIT/0.01 ML UNIT SQ SCH ×4 (07:13→21:22)
[2020-02-22] MEDS ORDERED: NEUTRA PHOS 1 PACKET PO ONE (08:10)
[2020-02-22] MEDS: CEFEPIME 2 GM VIAL IV SCH ×2 (09:13→21:25)
[2020-02-22] MEDS: HEPARIN 5,000 UNIT/ML VIAL SQ SCH ×2 (09:14→21:22)
[2020-02-22] MEDS: DOCUSATE SODIUM 100 MG CAPSULE PO SCH ×2 (09:14→21:22)
[2020-02-22] MEDS: LACTOBACILLUS 1 CAPSULE PO SCH ×2 (09:14→21:22)
[2020-02-22] MEDS: INSULIN GLARGINE, HUMAN 1 UNIT/0.01 ML SQ SCH ×2 (09:15→21:23)
--- NOTE | 2020-02-22 16:35 | Event Note ---
Spoke with Dr. Kraus, Dr Thompson, and Dr. Schulz. ID consult not needed after talking with them. Shared that 48 hr of antibiotics after a BKA is sufficient and longer course of antibiotics are not indicated. Please call or consult if have any further questions.
--- NOTE | 2020-02-22 23:42 | Internal Med Progress Note ---
Medical - PN: Subj Patient information: Note initiated : 02/22/20 at 11:42 pm Service Date, if different from initiated Date: [] Patient: Tarun Molina 49 y/o M admitted on 02/19/20 for black tissues to left foot. Chief Complaint: [] Interval history: Mr. Molina is a 49 year old M 49-year-old male who was last admitted in October for DKA and abscess along his thoracic wall now presents for wound of the left foot this been there for several months. This wound he says started a blister has progressed. He was supposed to see Dr. Montemayor but missed his appointment. He saw at the [facility] clinic today who said he needed to come into the hospital because of his foot. Patient states his foot has a foul odor and has been swelling and draining pus. He states he has had fevers and chills recently past several weeks. He is a diabetic but arrived in the ED drinking a DrPallavi Blanchard slushy. He says he misses a lot of doses of insulin because he does not feel like getting up or taking it. He also has short acting for meals which she has not been taking. Has not been adhering to diabetic diet. In the ED had a temperature of 100.6. He was hyponatremic. Lactate was 2.7. Blood glucose is 454 in the ED. Left foot MRI shows cellulitis and osteomyelitis. 02/19 No issues overnight. Off insulin drip. Occasional headache. Seen by Dr. Thompson who will talk to Dr. Figueredo about below the knee amputation. 02/20 Patient doing well. Slept all right. No overnight events. Dr. Figueredo for left BKA this morning. 02/21 Does not have complaints. Denies fever/chills. Discussed with ID Dr. Colvin, who felt pt no longer need abx. awaiting for placement Review of Systems: denies fever/chills/nausea/vomiting/chest or abdominal pain/cough/dyspnea/diarrhea. Otherwise see above. - Constitutional Vitals: Vital Signs Temp Pulse Resp BP Pulse Ox 98.2 F 95 H 12 115/70 95 02/22/20 18:45 02/22/20 18:45 02/22/20 18:45 02/22/20 18:45 02/22/20 18:45 Period Temp Pulse Resp BP Sys/Garcia Pulse Ox Last 24 Hr 96.6 F-98.3 F 66-98 12-18 114-126/70-77 95-98 Intake and Output 02/22/20 02/22/20 02/23/20 13:59 21:59 05:59 Intake Total 940 1620 Output Total 1120 275 Balance 940 500 -275 Weight 108.862 kg Patient Weight 02/23/20 05:59 Weight 108.862 kg Intake & Output: Intake & Output 02/22/20 02/22/20 02/23/20 13:59 21:59 05:59 Intake Total 940 1620 Output Total 1120 275 Balance 940 500 -275 Weight 108.862 kg Intake: IV 100 100 Oral 840 1520 Output: Void Amount 1120 275 Other: Meal Lunch Dinner Percent of Meal Consumed 100% 100% Feeding Ability Independent Independent Urine Appearance Clear Clear Urine Color Bright Yellow Dark Yellow - Additional findings Additional findings: General: Alert, Awake, No acute Distress, obese Eyes/N/T: EOMI, Head/Neck: neck supple, CV: RRR, 1/6 SM Pulm: Clear b/l, no wheezing/rhonchi/rales Abd: soft, nontender, +BS x4 Ext: RLE 1+ edema (improved). BKA, dressing dry Neuro: Alert, no focal deficits, moves all extremities, Skin: warm/dry Psych: normal Medical - PN: Obj Da - Labs CBC & Chem 7: 02/22/20 05:13 02/22/20 05:13 Labs: Abnormal Lab Results 02/22/20 02/22/20 02/22/20 05:13 05:13 05:13 RBC 2.80 L Hgb 8.7 L Hct 26.6 L Plt Count 72 L MPV 11.4 H Gran % 80.8 H Lymph % (Auto) 13.1 L Lymph # (Auto) 0.75 L Platelet Estimate PT INR Sodium 132 L Potassium Anion Gap 7.0 L Creatinine 0.5 L Glucose 282 H Uric Acid 2.1 L Calcium 7.8 L Phosphorus 2.4 L Total Bilirubin 1.1 H Direct Bilirubin 0.4 H C-Reactive Protein 5.7 H Albumin 2.2 L Globulin 5.7 H Albumin/Globulin Ratio 0.4 L 02/21/20 02/21/20 02/20/20 04:44 04:44 04:35 RBC 2.42 L 2.26 L Hgb 7.5 L 7.1 L Hct 22.9 L 21.6 L Plt Count 60 L 60 L MPV 12.1 H 12.3 H Gran % Lymph % (Auto) Lymph # (Auto) 1.06 L Platelet Estimate Decreased A PT INR Sodium 132 L Potassium 3.2 L Anion Gap 7.0 L Creatinine 0.5 L Glucose 114 H Uric Acid 2.2 L Calcium 7.2 L Phosphorus 1.7 L Total Bilirubin Direct Bilirubin C-Reactive Protein Albumin 1.8 L Globulin 5.4 H Albumin/Globulin Ratio 0.3 L 02/20/20 02/20/20 04:35 04:35 RBC Hgb Hct Plt Count MPV Gran % Lymph % (Auto) Lymph # (Auto) Platelet Estimate PT 18.6 H INR 1.5 H Sodium Potassium Anion Gap Creatinine 0.6 L Glucose 109 H Uric Acid 2.4 L Calcium 7.4 L Phosphorus 2.2 L Total Bilirubin 1.4 H Direct Bilirubin 0.6 H C-Reactive Protein Albumin 1.9 L Globulin 5.3 H Albumin/Globulin Ratio 0.4 L Meds: Medications Acetaminophen (Tylenol) 650 mg PO Q6HP PRN PRN Reason: PAIN/FEVER > 101 Hydrocodone Bitart/Acetaminophen ([place] 5/325mg) 1 tab PO Q4HP PRN PRN Reason: PAIN LEVEL 3-6 Last Admin: 02/22/20 22:49 Dose: 1 tab Documented by: Albuterol/Ipratropium (Duoneb) 3 ml NEB Q4HP PRN PRN Reason: Shortness Of Breath Cefepime HCl (Maxipime) 2 gm IV Q12H [facility]; Protocol Last Admin: 02/22/20 21:25 Dose: 2 gm Documented by: Diagnostic Test (Pha) (Accu-Chek) 1 each FS ACHS [facility]; Protocol Last Admin: 02/22/20 21:21 Dose: 1 each Documented by: Docusate Sodium (Colace) 100 mg PO BID [facility] Last Admin: 02/22/20 21:22 Dose: 100 mg Documented by: Heparin Sodium (Porcine) (Heparin) 5,000 unit SQ Q12 [facility] Last Admin: 02/22/20 21:22 Dose: 5,000 unit Documented by: Hydromorphone HCl (Dilaudid) 0.5 mg IV Q2HP PRN; Protocol PRN Reason: Per Pain Protocol Last Admin: 02/22/20 19:12 Dose: 0.5 mg Documented by: Potassium Chloride 40 meq/ (Dextrose) 520 mls @ 130 mls/hr IV UD PRN PRN Reason: Potassium < 3 Magnesium Sulfate (Magnesium Sulfate) 2 gm in 50 mls @ 50 mls/hr IV UD PRN PRN Reason: Magnesium </= 1.6 Metronidazole (Flagyl) 500 mg in 100 mls @ 100 mls/hr IV Q8H [facility]; Protocol Last Admin: 02/22/20 21:24 Dose: 100 mls/hr Documented by: Insulin Glargine (Lantus) 65 unit SQ BID [facility] Last Admin: 02/22/20 21:23 Dose: 65 units Documented by: Insulin Human Lispro (Humalog) 0 unit SQ ACHS [facility]; Protocol Last Admin: 02/22/20 21:22 Dose: 8 units Documented by: Lactobacillus Rhamnosus (Culturelle) 1 cap PO BID [facility] Last Admin: 02/22/20 21:22 Dose: 1 cap Documented by: Ondansetron HCl (Zofran) 4 mg IV Q4HP PRN PRN Reason: Nausea And Vomiting Polyethylene Glycol (Miralax) 17 gm PO DAILYP PRN PRN Reason: Constipation Potassium Chloride (Kdur) 40 meq PO UD PRN PRN Reason: Potssium is 3-3.5 Potassium Chloride (Kdur) 40 meq PO UD PRN PRN Reason: Potassium < 3 Senna (Senokot) 2 tab PO DAILYP PRN PRN Reason: Constipation Sodium Chloride (Saline Flush) 10 ml IV Q8 [facility] Last Admin: 02/22/20 21:23 Dose: 10 ml Documented by: Medical - PN: A/P - Time Spent With Patient Total time spent is greater than 50% in coordination of care (as documented) at patient's floor/unit and/or counseling patient: - Narrative A/P Narrative: Assessment: *Diabetic left foot wound/cellulitis with Osteomyelitis, severe and with foul odor: -h/o MSSA; -WC growing Strep agalactiae and GNB -s/p Left jtfst-fgg-kfyg amputation by Dr. Jimenez on 02/20 *DM II w/Hyperglycemia 450 on admit: 2/2 noncompliance with medications and diet -A1c 13 in October, now 10 *lactic acidosis: resolved *Hyponatremia: mild *Hypophos/ayaan: given *Cirrhosis w/thrombocytopenia: has had extensive w/u to determine etiology but likely etoh *Anemia, chronic: *Obesity: Plan: -No longer needs abx as per ID Dr. Colvin. -Dr. Thompson following and Dr. Jimenez is on board -DM education -basal and SSI -restart home Lasix/aldactone -Electrolyte replacement -pt/ot -ppx: heparin (hold if PLT<50k) full code Placement Discussed with ID Dr. Colvin, who felt pt no longer need abx. awaiting for placement Medical - PN: Qual - Stroke Symptom Onset Unknown: No - VTE Deep Vein Thrombosis/Pulmonary Embolism Present on Admission: No
[2020-02-23] MEDS: HYDROcodone/APAP 5/325MG TABLET PO PRN ×2 (03:10→13:45)
[2020-02-23] MEDS: HYDROmorphone* 2 MG/ML VIAL IV PRN (03:11)
[2020-02-23] MEDS: metroNIDAZOLE 500 MG/100 ML BAG IV SCH ×2 (05:52→13:46)
[2020-02-23] MEDS: 0.9 % SODIUM CHLORIDE 10 ML SYRINGE IV SCH (05:53)
[2020-02-23] MEDS: INSULIN LISPRO 1 UNIT/0.01 ML UNIT SQ SCH ×2 (07:49→11:37)
[2020-02-23] MEDS: HEPARIN 5,000 UNIT/ML VIAL SQ SCH (08:27)
[2020-02-23] MEDS: LACTOBACILLUS 1 CAPSULE PO SCH (08:27)
[2020-02-23] MEDS: DOCUSATE SODIUM 100 MG CAPSULE PO SCH (08:27)
[2020-02-23] MEDS: CEFEPIME 2 GM VIAL IV SCH (09:06)
[2020-02-23] MEDS: INSULIN GLARGINE, HUMAN 1 UNIT/0.01 ML SQ SCH (09:06)
[2020-02-23] MEDS ORDERED: NEUTRA PHOS 1 PACKET PO ONE (10:48)
--- NOTE | 2020-02-23 13:16 | Discharge Summary ---
Medical - DS: Prov Patient information: Note initiated : 02/23/20 at 1:13 pm Service Date, if different from initiated Date: [] Patient: Tarun Molina 49 y/o M admitted on 02/19/20 for black tissues to left foot. Chief Complaint: [] Referred to H&P by Austin Kraus D.O.> 02/19/20 49-year-old male who was last admitted in October for DKA and abscess along his thoracic wall now presents for wound of the left foot this been there for several months. This wound he says started a blister has progressed. He was supposed to see Dr. Montemayor but missed his appointment. He saw DrPallavi at the [facility] clinic today who said he needed to come into the hospital because of his foot. Patient states his foot has a foul odor and has been swelling and draining pus. He states he has had fevers and chills recently past several weeks. He is a diabetic but arrived in the ED drinking a DrPallavi Blanchard slushy. He says he misses a lot of doses of insulin because he does not feel like getting up or taking it. He also has short acting for meals which she has not been taking. Has not been adhering to diabetic diet. In the ED had a temperature of 100.6. He was hyponatremic. Lactate was 2.7. Blood glucose is 454 in the ED. Left foot MRI shows cellulitis and osteomyelitis. Date of admission: 02/19/20 16:00 Discharge date: 02/23/20 Primary care physician: LINDSAY Olvera Consults: 02/19/20 14:10 Consult to Physician [CONS] Stat Comment: Consulting Provider: Austin Kraus Reason For Exam: Physician to Consult 02/19/20 14:17 Consult to Physician [CONS] Stat Comment: Consulting Provider: Angel Thompson Reason For Exam: Physician to Consult 02/19/20 17:49 Consult to Physician [CONS] Routine Comment: Left foot wounds and osteomyelitis Consulting Provider: Jaison Colvin Reason For Exam: Physician to Consult 02/20/20 08:48 Consult to Physician [CONS] Routine Comment: Consulting Provider: Stefan Jimenez Reason For Exam: Surgery for infected LEFT foot ? BKA Medical - DS: Meds - Discharge Medications Prescriptions: HYDROcodone/APAP 5/325MG [[place] 5-325Mg] 1 tab PO Q8HP PRN 3 Days #9 tablet PRN Reason: Pain Level 3-6 Active and Home Medications: Home Medications insulin lispro 100 unit/mL subcutaneous solution See Rx Instructions SUB-Q TID #10 ml 12/08/19 [Rx Confirmed 02/19/20 Last Taken 02/12/20] Insulin Glargine, Human [Lantus] 65 unit SQ BID 02/19/20 [History Confirmed 02/19/20 Last Taken 02/18/20 11:00] Medical - DS: Hosp Hospital Course: *Diabetic left foot wound/cellulitis with Osteomyelitis, severe and with foul odor: -h/o MSSA; -WC growing Strep agalactiae and GNB -s/p Left pizyg-hvx-vpne amputation by Dr. Jimenez on 02/20 -As per ID Dr. Colvin, he no longer needs abx . -f/u with pcp in 3-5 days, Dr. Colvin in one week and Dr. Jimenez in one week. -Change dressing daily *DM II w/Hyperglycemia 450 on admit: 2/2 noncompliance with medications and diet -A1c 13 in October, now 10 -DM education, check blood glucose before each meal and bedtime. Adjust insulin based blood glucose levels. Educated the side effects of insulin. -Continue home insulin regimen, adjust does based on BG levels. *lactic acidosis: resolved *Hyponatremia: mild *Hypophos/ayaan: given *Cirrhosis w/thrombocytopenia: has had extensive w/u to determine etiology but likely etoh *Anemia, chronic: f/u with pcp *Obesity: f/u with pcp Interval history: Mr. Molina is a 49 year old M 49-year-old male who was last admitted in October for DKA and abscess along his thoracic wall now presents for wound of the left foot this been there for several months. This wound he says started a blister has progressed. He was supposed to see Dr. Montemayor but missed his appointment. He saw at the [facility] clinic today who said he needed to come into the hospital because of his foot. Patient states his foot has a foul odor and has been swelling and draining pus. He states he has had fevers and chills recently past several weeks. He is a diabetic but arrived in the ED drinking a Dr. Pepper slushy. He says he misses a lot of doses of insulin because he does not feel like getting up or taking it. He also has short acting for meals which she has not been taking. Has not been adhering to diabetic diet. In the ED had a temperature of 100.6. He was hyponatremic. Lactate was 2.7. Blood glucose is 454 in the ED. Left foot MRI shows cellulitis and osteomyelitis. 02/19 No issues overnight. Off insulin drip. Occasional headache. Seen by Dr. Thompson who will talk to Dr. Figueredo about below the knee amputation. 02/20 Patient doing well. Slept all right. No overnight events. Dr. Figueredo for left BKA this morning. 02/21 Does not have complaints. Denies fever/chills. Discussed with ID Dr. Colvin, who felt pt no longer need abx. 02/22 Today pt feels much better. He only has mild to moderate pain from the left leg. Otherwise denies headache, dizziness, cheat pain, shortness of breath, abdominal pain, fever, chills, nausea, vomiting, or dysuria. Vital signs are stable. Home health with PT/OT/RN has been arranged. He will be discharged home to follow with the PCP, ID and orthopedics. Call PCP for medical issues. Discharge diagnosis: Diabetic left foot wound/cellulitis with Osteomyelitis, s/p BKA - Time Spent with Patient Total time spent providing and/or coordinating discharge services: Greater than 30 minutes Medical - DS: Exam - Constitutional Vitals: Vital Signs Temp Pulse Resp BP Pulse Ox 02/23/20 11:49 98.7 F 20 103/62 97 02/23/20 06:38 98 F 16 110/67 97 02/23/20 03:15 98.4 F 98 H 16 117/75 94 02/23/20 00:00 98.9 F 18 104/63 96 02/22/20 18:45 98.2 F 95 H 12 115/70 95 02/22/20 16:00 97.7 F 98 H 18 122/76 96 Intake and Output 02/22/20 02/23/20 02/23/20 21:59 05:59 13:59 Intake Total 1620 660 100 Output Total 1120 275 Balance 500 385 100 Intake: IV 100 100 100 Oral 1520 560 Output: Void Amount 1120 275 Other: Meal Dinner Percent of Meal Consumed 100% Feeding Ability Independent Urine Appearance Clear Clear Urine Color Bright Yellow Dark Yellow Weight 108.862 kg - Other Additional findings: General: Alert, Awake, No acute Distress, obese Eyes/N/T: EOMI, Head/Neck: neck supple, CV: RRR, 1/6 SM Pulm: Clear b/l, no wheezing/rhonchi/rales Abd: soft, nontender, +BS x4 Ext: RLE 1+ edema (improved). BKA, dressing dry Neuro: Alert, no focal deficits, moves all extremities, Skin: warm/dry Psych: normal Medical - DS: Data Labs on day of discharge: Preliminary micro results at discharge 02/19/20 11:09 Blood Culture - Preliminary Blood 02/19/20 11:11 Blood Culture - Preliminary Blood Gram positive cocci Medical - DS: A/P - Patient/Caregiver Discharge Instructions Activity: increase activity as tolerated Diet: Consistent Carbohydrate Other Amb Orders: Crutches Location: None Selected - Follow up Plan Follow up with: Chidi Montemayor DPM [Physician] - Breezy Griffith ARNP [Primary Care Provider] - Angel Thompson MD [Physician] - pcp [Other] (in 3-5 days) DESTIN Colvin and marco Jimenez [Other] (in one week, respectively. ) Disposition: Home Health Service Care Plan Goals: This discharge packet is provided to you to help keep you informed about your care. We want to ensure you get everything you need when you go home. You will also be receiving a call from us in a few days to follow up with you and see how you are doing since your discharge. This gives us a chance to listen to any concerns you maybe experiencing since you were discharged or any additional needs you may have, as well as providing us feedback on your care experience. We strive to always provide excellent care and thank you for your feedback and for choosing [facility]. Prognosis: Fair Rehab Potential: Good Medical - DS: Qual - VTE Deep Vein Thrombosis/Pulmonary Embolism Present on Admission: No
== END 2020-02-23 15:25 | disposition home health service (06) | DRG 240 ==
LOC: SUPCPDRO → ED 10:54 → ICU 16:00 → MEDSUR 02-21 10:22
PROVIDERS: ADMIT Internal Medicine; ATTEND Internal Medicine

== ENCOUNTER 2020-03-19 16:09 | Inpatient (IN) ==
[2020-03-19] MEDS ORDERED: cefTRIAXone 1 GM VIAL IV ONE (16:34)
--- NOTE | 2020-03-19 17:10 | Emergency Department Note ---
General Adult HPI - General Chief complaint: Bleeding Other Stated complaint: Recent left BKA, Injury to site Time Seen by Provider: 03/19/20 16:16 Source: patient Mode of arrival: ambulatory Limitations: no limitations - History of Present Illness HPI Narrative: Patient presents emergency department for wound dehiscence to the left lower extremity. It a BKA performed on the of last month. Today he slipped and fell he landed directly on the surgical site and the wound dehisced. No other complaints. - Related Data Home Medications Medication Instructions Recorded Confirmed Insulin Glargine, Human [Lantus] 65 unit SQ BID 02/19/20 02/19/20 Acetaminophen W/Codeine #3 1 tab PO Q4 PRN 03/10/20 03/10/20 [Tylenol #3] Previous Rx's Medication Instructions Recorded insulin lispro 100 unit/mL See Rx Instructions SUB-Q TID #10 12/08/19 subcutaneous solution ml Accu-Chek 1 each FS ACHS strip 02/23/20 Sulfamethoxazole/Trimethoprim 1 tab PO BID #20 tab 03/13/20 [Bactrim Ds] Allergies Allergy/AdvReac Type Severity Reaction Status Date / Time Amoxicillin Allergy Mild Hives Verified 02/19/20 20:06 ampicillin Allergy Mild Hives Verified 02/19/20 20:06 latex Allergy Mild Rash Verified 02/19/20 20:07 egg AdvReac Mild Nausea Verified 02/19/20 20:08 Review of Systems Review of Systems: As above Past Medical History - Past Medical History PMF Narrative: Family History (Last Reviewed 01/08/20 @ 08:16 by Lianet Allen PA-C) Mother Hypertension Diabetes Arthritis Stroke Medical History (Last Reviewed 01/08/20 @ 08:16 by Lianet Allen PA-C) Stomach ulcer (Chronic) Migraines (Chronic) Liver disease (Chronic) Joint pain (Chronic) Insomnia (Chronic) High blood pressure (Chronic) Type 2 diabetes mellitus (Chronic) Depression (Chronic) Daytime sleepiness (Chronic) Muscle pain (Chronic) Asthma (Chronic) Anxiety (Chronic) Acid reflux (Chronic) Chronic back pain (Chronic) Obesity (Chronic) Restless leg syndrome (Chronic) Diabetes mellitus (Chronic) Diabetic neuropathy (Chronic) Skin fissure (Chronic) Callus of foot (Chronic) Onychomycosis (Chronic) Scrotal abscess (Chronic) Erectile dysfunction (Chronic) BPH (benign prostatic hyperplasia) (Chronic) Hypernatremia (Chronic) Chest wall abscess (Chronic) 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 Wound is not grossly contaminated.) Neurological: Present: alert, oriented X3, CN II-XII intact Medical Decision Making - MDM Narrative Medical decision making narrative: Emergency department course: I spoke with Dr. Figueredo the patient's orthopedic surgeon. Case reviewed in detail over the phone. Orthopedic surgery requested the patient receive Rocephin and plan to admit the patient to hospital with plan to go to the OR later tonight. Discussed findings with the patient. He is agreeable with the plan. His questions were answered. Impression: Wound dehiscence Plan: As above Disposition Pt seen by REVENUE ENFORCEMENT COLLECTION AGENT/PA only: No Disposition: Xfer As Outpt/Obs ([facility]) Referrals: Breezy Griffith ARNP [Primary Care Provider] -
[2020-03-19 17:45] LABS: Basophils # (Auto) 0.01 K/mcL (0.00-0.30); Basophils % (Auto) 0.3 % (0.0-2.0); Eosinophils # (Auto) 0.14 K/mcL (0.00-0.70); Eosinophils % (Auto) 4.2 % (0.0-7.0); Hematocrit 25.7 % (40.1-51.0); Hemoglobin 8.3 g/dL (13.7-17.5); Lymphocytes # (Auto) 0.81 K/mcL (1.50-4.80); Lymphocytes % (Auto) 24.2 % (15.5-49.0); Mean Cell Volume 98.5 fL (80.0-100.0); Mean Corpuscular HGB Conc 32.3 g/dL (31.0-36.0); Mean Platelet Volume 11.7 fL (7.4-10.4); Monocytes # (Auto) 0.21 K/mcL (0.10-0.90); Monocytes % (Auto) 6.3 % (1.0-12.0); Platelet Count 74 K/mcL (140-440); RBC 2.61 M/mcL (4.63-6.08); Red Cell Distribution Width 19.2 % (11.5-14.5); WBC 3.4 K/mcL (4.50-11.00)
[2020-03-19 18:05] LABS: ALT/SGPT 13 U/l (0-40); AST/SGOT 31 U/l (0-37); Albumin 2.4 gm/dL (3.2-5.2); Albumin/Globulin Ratio 0.5 (1.0-2.3); Alkaline Phosphatase 74 U/L (39-117); Bilirubin,Total 0.7 mg/dL (0.0-1.0); Blood Urea Nitrogen 7 mg/dl (6-20); Calcium 8.2 mg/dl (8.6-10.4); Carbon Dioxide 23 mmol/L (22-30); Chloride 103 mmol/L (96-108); Globulin 5.1 gm/dL (2.2-3.7); Glomerular Filtration Rate 126; Glucose 185 mg/dL (70-105)
[2020-03-19] MEDS ORDERED: HYDROmorphone 0.5 MG/0.5 ML SYRINGE IV PRN (19:09)
[2020-03-19] MEDS ORDERED: HYDROcodone/APAP 10/325MG TABLET PO PRN (19:09)
--- NOTE | 2020-03-19 19:51 | Consultation ---
DATE OF CONSULTATION: 03/19/2020 This is a consultation in the emergency room where the patient was seen with chief complaint of a wound dehiscence of his left below knee amputation from a same level fall. This has been slightly opened in the last few weeks, but he had a fall the night that opened it up entirely. He has otherwise been fairly difficult patient to be compliant with guidance. He has been on antibiotics because he had a small cellulitis. He has been in the emergency room twice since his surgery. His below knee amputation was performed on 02/21/2020, last month. He started having wound problems shortly afterwards. MEDICATIONS: ____ p.o. b.i.d. He is on Tylenol with codeine, Accu-Chek, and sulfa trimethoprim. With this, the patient is an otherwise unhealthy individual. His list of medical problems include chronic stomach ulcers; chronic migraines; liver disease; liver failure; insomnia; high blood pressure; type 2 diabetes; depression; daytime sleepiness; restless legs syndrome; neuropathy; chronic wound in his lower extremities; scrotal abscess; erectile dysfunction; BPH; chest wall abscess, which has been chronic. He had a history of a below knee amputation and hand surgery. SOCIAL HISTORY: Never smoked and does not drink. PHYSICAL EXAMINATION: GENERAL: Very pleasant male, alert, cooperative, gives a good history, in no acute distress. LUNGS: Clear to auscultation bilaterally. CARDIOVASCULAR: Regular rate and rhythm. HEENT: Atraumatic, normocephalic. NECK: Soft and nontender. EXTREMITIES: Does show a dehisced wound that extends approximately 20 cm. There is cellulitis or erythema around the skin. PLAN: Treatment will be debridement and irrigation and wound closure at the patient's convenience. He last ate a few hours ago. This will be done early tomorrow. He understands the risks and benefits of the procedure and agreed to safely able to do so. RBH:mimi Job ID: [id number] Doc ID: [id number] Stefan Jimenez MD
[2020-03-19] MEDS ORDERED: SCOPOLAMINE 1 PATCH PATCH TOPICAL PRN (20:34)
[2020-03-19] MEDS: LACTATED RINGERS 1,000 ML IV SCH (23:09)
[2020-03-20] MEDS ORDERED: ALBUMIN HUMAN 25 GM/100 ML BAG IV ONE ×2 (07:12→07:45)
[2020-03-20] MEDS ORDERED: 0.9 % SODIUM CHLORIDE 250 ML IV SCH (07:15)
[2020-03-20] MEDS ORDERED: KETAMINE 100 MG/ML ML IV ONE (07:45)
[2020-03-20] MEDS ORDERED: PHENYLEPHRINE 10 MG/ML VIAL IV ONE (07:45)
[2020-03-20] MEDS ORDERED: LIDOCAINE HCL/PF 100 MG/5 ML SYRINGE IV ONE (07:45)
[2020-03-20] MEDS ORDERED: TRANEXAMIC ACID 1,000 MG/10 ML VIAL IV ONE (07:45)
[2020-03-20] MEDS ORDERED: DEXAMETHASONE 10 MG/ML VIAL IV ONE (07:45)
[2020-03-20] MEDS ORDERED: PROPOFOL 200 MG/20 ML VIAL IV ONE (07:45)
[2020-03-20] MEDS ORDERED: ceFAZolin 2 GM in DEXTROSE 5% IN WATER 50 ML IV SCH (07:45)
[2020-03-20] MEDS ORDERED: ONDANSETRON 4 MG/2 ML VIAL IV ONE (07:45)
[2020-03-20] MEDS ORDERED: METOPROLOL TARTRATE 5 MG/5 ML VIAL IV PRN (08:09)
[2020-03-20] MEDS ORDERED: HYDROmorphone 0.5 MG/0.5 ML SYRINGE IV PRN (08:09)
[2020-03-20] MEDS ORDERED: FLUMAZENIL 0.1 MG/ML ML IV PRN (08:09)
[2020-03-20] MEDS ORDERED: ONDANSETRON 4 MG/2 ML VIAL IV PRN ×2 (08:09→08:43)
[2020-03-20] MEDS ORDERED: MEPERIDINE 25 MG/ML SYRINGE IV PRN (08:09)
[2020-03-20] MEDS ORDERED: ePHEDrine 50 MG/ML AMPUL IV PRN (08:09)
[2020-03-20] MEDS ORDERED: IPRATROPIUM/ALBUTEROL 3 ML AMPUL.NEB NEB PRN (08:09)
[2020-03-20] MEDS ORDERED: METHOCARBAMOL 1,000 MG/10 ML VIAL IV PRN (08:09)
[2020-03-20] MEDS ORDERED: ACETAMINOPHEN 1,000 MG/100 ML BOTTLE IV ONE (08:09)
[2020-03-20] MEDS ORDERED: NALOXONE HCL 0.4 MG/ML VIAL IV PRN (08:09)
[2020-03-20] MEDS ORDERED: PROMETHAZINE 25 MG/ML VIAL IV PRN (08:09)
[2020-03-20] MEDS ORDERED: diphenhydrAMINE 50 MG/ML VIAL IV PRN (08:09)
[2020-03-20] MEDS ORDERED: ATROPINE SULFATE 0.4 MG/ML VIAL IV PRN (08:09)
[2020-03-20] MEDS ORDERED: LACTATED RINGERS 1,000 ML IV SCH (08:15)
[2020-03-20] MEDS ORDERED: THROMBIN (BOVINE) 5,000 UNIT VIAL TOPICAL ONE (08:17)
--- NOTE | 2020-03-20 08:42 | Brief Operative Note ---
Date of procedure: 03/20/20 Pre-op diagnosis: left bka dehiscence Post-op diagnosis: same Procedure: bka revision left Grafts/Implants: Yes Anesthesia: GETA Complications: none Surgeon: Stefan Jimenez Diamond Die Polisher: Jose Juan Thomas Estimated blood loss (cc): 200 Specimens Removed/Pathology: none sent Condition: stable Disposition: PACU
[2020-03-20] MEDS ORDERED: ACETAMINOPHEN W/CODEINE #3 1 TABLET PO PRN (08:44)
--- NOTE | 2020-03-20 08:57 | Operative Note ---
DATE OF OPERATION: 03/20/2020 PREOPERATIVE DIAGNOSIS: Traumatic dehiscence of his below-knee amputation one month out from surgery. POSTOPERATIVE DIAGNOSIS: Traumatic dehiscence of his below-knee amputation one month out from surgery. PROCEDURE: Left below-knee amputation revision. SURGEON: Stefan Jimenez M.D. TOWER SUPERVISOR: Jose Juan Thomas PA-C. The PA's assistance was required for the safe and efficient completion of the entire case. This provider's expertise and technical skill were required throughout the case. The PA assisted with preoperative coordination, intraoperative retraction, wound closure, dressing and splint application, as well as postoperative documentation and care coordination. ANESTHESIA: General LMA anesthesia. COMPLICATIONS: None. DESCRIPTION OF PROCEDURE: The patient was brought to the operating room and put to sleep with general LMA anesthesia. Once asleep, the patient had a timeout performed confirming the operative side as the left leg by initials, consent form, and x-rays. Preop antibiotics and tranexamic acid had been given. The patient then after having this done was prepared by sterilely prepping and draping the extremity. A tourniquet was placed proximally in case we needed this. We then noticed that the wound had been completely opened up by this traumatic dehiscence. Once identified, the amputation was evaluated and prepared and thoroughly irrigated. We recut the bone 3 mm more proximal. To keep the bone sterile, we irrigated thoroughly. To stop the bleeding, we used thrombin and Gelfoam and Surgicel. Once these were in place, this seemed to stop the bleeding with the thrombin and then we closed the wound with a #1 Stratafix x3 and then 2-0 Monocryl and josué. The patient was then placed in a postop splint to protect this. Patient tolerated this well. Blood loss was about 200 mL. RBH:yanely Job ID: [id number] Doc ID: [id number] Stefan Jimenez MD
[2020-03-20] MEDS ORDERED: [UNRECOGNIZED DRUG - OTHER] SQ SCH (09:00)
[2020-03-20] MEDS: fentaNYL 100 MCG/2 ML VIAL IV PRN ×3 (09:19→09:35)
[2020-03-20] MEDS: LACTATED RINGERS 1,000 ML IV SCH ×2 (10:15→13:56)
--- NOTE | 2020-03-20 12:46 | Discharge Summary ---
Ortho Discharge Plan - General - Patient Instructions Diet: Regular Diet Activity: activity as tolerated, non weight bearing Dressing Care: Cover dressing in shower - Follow Up Plan Follow Up Appointments: Breezy Griffith ARNP [Primary Care Provider] - Disposition: Home, Self-Care Overall status at discharge: patient is progressing back to baseline
[2020-03-20] MEDS: CEPHALEXIN 500 MG CAPSULE PO SCH ×3 (14:01→20:55)
[2020-03-20] MEDS: oxyCODONE/APAP 5/325MG TABLET PO PRN ×2 (14:01→19:08)
[2020-03-20] MEDS: 0.9 % SODIUM CHLORIDE 10 ML SYRINGE IV SCH ×2 (14:02→20:56)
[2020-03-20] MEDS: FUROSEMIDE 20 MG/2 ML VIAL IV SCH (15:58)
[2020-03-20] MEDS: SULFAMETHOXAZOLE/TRIMETHOPRIM 1 TABLET PO SCH (20:55)
[2020-03-20] MEDS ORDERED: INSULIN GLARGINE, HUMAN 1 UNIT/0.01 ML SQ SCH (21:00)
[2020-03-21] MEDS: 0.9 % SODIUM CHLORIDE 10 ML SYRINGE IV SCH (06:52)
[2020-03-21] MEDS: FUROSEMIDE 20 MG/2 ML VIAL IV SCH (08:13)
[2020-03-21] MEDS: SULFAMETHOXAZOLE/TRIMETHOPRIM 1 TABLET PO SCH (08:14)
[2020-03-21] MEDS: CEPHALEXIN 500 MG CAPSULE PO SCH ×2 (08:14→13:38)
[2020-03-21] MEDS ORDERED: INSULIN GLARGINE, HUMAN 1 UNIT/0.01 ML SQ SCH (09:00)
[2020-03-21] MEDS: oxyCODONE/APAP 5/325MG TABLET PO PRN (13:41)
== END 2020-03-21 14:00 | disposition home or self-care (01) | DRG 476 ==
LOC: ED 16:09 → MEDSUR 16:09
PROVIDERS: ADMIT Orthopaedic Surgery; ATTEND Orthopaedic Surgery

== ENCOUNTER 2020-10-03 13:50 | Inpatient (IN) ==
[2020-10-03 14:35] LABS: POC Creatinine 0.5 mg/dL (0.6-1.2)
--- NOTE | 2020-10-03 14:57 | XRay Report ---
INDICATION: Worsening erythema, swelling, and ulcer. R/o osteo TECHNIQUE: AP, oblique, lateral right 1st digit COMPARISON: Previous examination dated 09/21/2020 FINDINGS: There is generalized soft tissue swelling in the right 1st digit as well as in the visualized portions of the midfoot. No soft tissue gas or radiopaque foreign body. There is abnormality of the right 1st proximal phalanx. There is cortical destruction in the right 1st proximal and distal phalanges. Appearance is consistent with osteomyelitis. There has been slight interval progression since previous examination. IMPRESSION: 1. Radiographic appearance consistent with osteomyelitis of the right 1st proximal and distal phalanges 2. Generalized soft tissue swelling. No soft tissue gas bubbles or radiopaque foreign body Interpreted and Authenticated by: Karthikeyan Mueller 10/03/20
[2020-10-03 15:09] LABS: Basophils # (Auto) 0.01 K/mcL (0.00-0.20); Basophils % (Auto) 0.3 % (0.0-2.0); Hematocrit 33.5 % (41.0-55.0); Hemoglobin 11.3 g/dL (13.5-16.5); Lymphocytes # (Auto) 0.98 K/mcL (1.50-4.80); Mean Cell Volume 102.1 fL (80.0-100.0); Mean Corpuscular HGB Conc 33.7 g/dL (31.0-36.0); Mean Platelet Volume 10.2 fL (7.4-10.4); Monocytes # (Auto) 0.24 K/mcL (0.10-0.90); Monocytes % (Auto) 7.1 % (1.0-12.0); Neutrophils % (Auto) 60.6 % (38.0-78.0); Platelet Count 69 K/mcL (140-440); RBC 3.28 M/mcL (4.50-5.90); Red Cell Distribution Width 15.2 % (11.5-14.5); WBC 3.4 K/mcL (4.5-11.0)
[2020-10-03 15:29] LABS: ALT/SGPT 13 U/L (<40); AST/SGOT 34 U/L (<40); Albumin 3.1 gm/dL (3.2-5.2); Albumin/Globulin Ratio 0.7 (1.0-2.3); Alkaline Phosphatase 88 U/L (39-117); Bilirubin,Total 1.7 mg/dL (0.1-1.0); Blood Urea Nitrogen 10 mg/dL (6-20); Calcium 8.5 mg/dL (8.6-10.4); Carbon Dioxide 21 mmol/L (22-30); Chloride 103 mmol/L (96-108); Globulin 4.7 gm/dL (2.2-3.7); Glomerular Filtration Rate 116; Glucose 194 mg/dL (70-105)
--- NOTE | 2020-10-03 15:43 | Emergency Department Note ---
Extremity Problem HPI General Chief complaint: Extremity Problem,Nontraumatic Stated complaint: toe cellulitis Time Seen by Provider: 10/03/20 13:53 Source: patient Mode of arrival: wheelchair Limitations: no limitations History of Present Illness HPI Narrative: Narrative: 50-year-old male patient presents emergency department chief complaint of worsening swelling, and ulceration to his right great toe. 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 Patient was evaluated by myself on 09/21 and during the visit he had developed cellulitis and ulceration to his right foot including the great toe after rubbing along the floor and keeping a dressing on it too long. During that time he had blood work done that did show a macrocytic anemia but no elevated WBC. His chemistry was in order. His lactic acid was slightly elevated at 2.1. His procalcitonin was also slightly elevated. An x-ray of the affected right foot did not show any evidence of osteomyelitis. He was treated with oral Keflex 500 mg 3 times daily in conjunction with Septra DS twice daily for 10-day course. He has 1 day of treatment left. He was discharged with instructions to follow-up with his primary care provider as well as a senior application security consultant. Unfortunately he was not able to see the senior application security consultant because he admits to many previous appointments. He and his fiance made attempts to have him evaluated by the collateral specialist here but again he had failed to meet multiple appointments in the see him. They are trying to establish him with the senior application security consultant [facility] (Dr. Whittington). The ulceration to the left stump is new over the last 4 days. He denies any considerable pain secondary to significant peripheral neuropathy. ROS: Denies systemic illness, fever, sweats, chills. Denies headaches, tinnitus, or vision changes. Denies runny nose, sinus congestion, or cough. Denies shortness of breath. Denies retrosternal chest pain or palpitations. Denies abdominal pain, nausea, vomiting, or diarrhea. Denies dysuria, hematuria, urinary frequency, or urinary urgency. Denies generalized or focal weakness. Related Data Home Medications Medication Instructions Recorded Confirmed acetaminophen-codeine 1 tab PO Q4 PRN 03/10/20 10/03/20 insulin glargine [Lantus Solostar 70 unit SUBCUT BID 04/29/20 10/03/20 U-100 Insulin] methocarbamol 750 mg PO DAILY 04/29/20 10/03/20 diphenhydramine-acetaminophen 2 tab PO HS PRN 10/03/20 10/03/20 [Tylenol PM Extra Strength] insulin glargine See Rx Instructions .ROUTE .COMPLEX 10/03/20 10/03/20 Previous Rx's Medication Instructions Recorded Accu-Chek 1 each FS ACHS strip 02/23/20 cephalexin [Keflex] 500 mg PO TID #30 cap 09/21/20 sulfamethoxazole-trimethoprim 1 tab PO BID #20 tab 09/21/20 [Bactrim DS] Allergies Allergy/AdvReac Type Severity Reaction Status Date / Time Amoxicillin Allergy Mild Hives Verified 08/05/20 19:33 ampicillin Allergy Mild Hives Verified 08/05/20 19:33 latex Allergy Mild Rash Verified 08/05/20 19:33 egg AdvReac Mild Nausea Verified 08/05/20 19:33 Review of Systems ROS ROS Narrative: Narrative: All systems ED: reviewed and negative except as stated. PFSH Narrative Patient History Narrative: Narrative: Medical/Surgical/Family History All Active Problems (Updated 10/03/20 @ 17:24 by Marv Weeks PA-C) Cellulitis and abscess of left lower extremity (Acute) Thrombocytopenia (Acute) Rash (Acute) History of below-knee amputation of left lower extremity (Acute) Hyponatremia (Acute) Fever (Acute) Sinus tachycardia (Acute) Cellulitis of great toe of right foot (Acute) Diabetic foot ulcer (Acute) Osteomyelitis of great toe of right foot (Acute) Anemia, macrocytic (Acute) Hyponatremia (Acute) Hyperglycemia (Acute) Self-care deficit for hygiene (Acute) Stomach ulcer (Chronic) Migraines (Chronic) Liver disease (Chronic) Joint pain (Chronic) Insomnia (Chronic) High blood pressure (Chronic) Type 2 diabetes mellitus (Chronic) Depression (Chronic) Daytime sleepiness (Chronic) Muscle pain (Chronic) Asthma (Chronic) Anxiety (Chronic) Acid reflux (Chronic) Chronic back pain (Chronic) Obesity (Chronic) Restless leg syndrome (Chronic) Diabetic neuropathy (Chronic) Skin fissure (Chronic) Callus of foot (Chronic) Onychomycosis (Chronic) Erectile dysfunction (Chronic) BPH (benign prostatic hyperplasia) (Chronic) 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) Medical History (Updated 10/03/20 @ 17:24 by Marv Weeks PA-C) Acid reflux (Chronic) Anxiety (Chronic) Asthma (Chronic) Bleeding (Inactive) BPH (benign prostatic hyperplasia) (Chronic) Callus of foot (Chronic) Cellulitis (Inactive) Cellulitis of face (Inactive) Cellulitis of left ear (Inactive) Chest wall abscess (Resolved) Chronic back pain (Chronic) Daytime sleepiness (Chronic) Dehiscence of amputation stump (Inactive) Depression (Chronic) Diabetic neuropathy (Chronic) Erectile dysfunction (Chronic) High blood pressure (Chronic) Hypernatremia (Resolved) Hyponatremia (Acute) Improving with treatment. 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 Restless leg syndrome (Chronic) Scrotal abscess (Resolved) Sepsis syndrome (Inactive) Skin fissure (Chronic) Stomach ulcer (Chronic) Thrombocytopenia 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) CT evidence of cirrhosis and probable hyperspenism Type 2 diabetes mellitus (Chronic) Surgical History History of hand surgery (Chronic) Left hand History of incision and drainage (Chronic) 10/31/2019-I & D of right lateral chest wall abscess Family History Mother Hypertension Diabetes Arthritis Stroke Social History Smoking Status: Never smoker Alcohol Intake Frequency: holiday/special occasion only Substance Use: does not use Exam Narrative Narrative: Narrative: General Limitations: no limitations General appearance: Present other (Well-developed, well-nourished, obese 50-year-old male patient sitting upright on the emergency room gurney in no acute distress. He is afebrile with normal vital signs. He does not meet SIRS criteria at this time.) Head Head: Present normocephalic Eye Eye: Present normal appearance, PERRL and EOMI; Absent scleral icterus and conjunctival injection ENT ENT: Present normal oropharynx and mucous membranes moist Neck Neck: Present trachea midline; Absent lymphadenopathy and thyromegaly Chest Chest: Present symmetric chest wall rise Respiratory Respiratory: Present decreased breath sounds; Absent normal lung sounds bilaterally, respiratory distress, rales/crackles, wheezes, stridor, accessory muscle use and prolonged expiratory phase Cardiovascular Cardiovascular: Present regular rate and normal rhythm; Absent systolic murmur and diastolic murmur Expanded Lower Extremity Hip/Pelvis: Present normal inspection and full ROM; Absent tenderness Upper leg: Present normal inspection and full ROM; Absent tenderness Knee: Present normal inspection and full ROM; Absent tenderness Lower leg: Absent normal inspection (Left BKA. Superficial skin ulceration noted to the stump measure approximately 3 cm. No active bleeding. Mild edema and erythema noted.) and tenderness Ankle: Present normal inspection and full ROM; Absent tenderness Foot/toe: Present full ROM, swelling and erythema; Absent normal inspection, tenderness, ecchymosis, deformity and dislocation Top foot image: 1. Area of erythema now involves strictly the big toe to the right foot. Surrounding skin is white and scaly in appearance. The area of white blister formation has been excised. The underlying base of the blistered areas erythematous without drainage. 2. Superficial skin ulceration. Neurovascular/Tendon: Present motor deficit and sensory deficit; Absent normal capillary refill and pulse deficit Gait: other (Patient actively using a wheelchair for mobility.) Neurological Neurological: Present alert and oriented X3 Psychiatric Psychiatric: Present normal affect and normal mood Skin Skin: Present warm (WNL), dry and normal color Course Course Course Narrative: Upon reevaluation patient's right foot actually has more consolidated erythema along the great toe than previous. The remainder of the foot actually looks improved. However, the great toe is significantly worse at the moment, swelling, and ulceration. There is no obvious drainage noted. I am going to repeat the radiographs of the toe looking for osteomyelitis. I am going to order screening laboratory studies. At this time it is questionable whether or not the patient is truly failed outpatient antibiotics because there is some objective improvement to the erythema the right foot. However the infection to his toe has worsened. I am going to provide him Rocephin 2 g IVP in conjunction with vancomycin to be dosed per pharmacy direction. Reevaluation(s) Reevaluation #1: A review the patient's diagnostics so far show the following: CBC WBC 3.4, RBC 3.28, hemoglobin 9.3, hematocrit 33.5, MCV 102.1, platelets 69. Lactic acid 2.0. X-ray of the affected great toe showing radiographic evidence consistent with osteomyelitis of the right first proximal and distal phalanx phalanges. No soft tissue gas bubbles or radiopaque foreign body were noted. CMP is still pending. After reviewing all the data I have so far, patient has osteomyelitis of the right great toe which is new from previous exam days ago. He is failed outpatient oral antibiotics and is likely going to need admission to help treat this. With this in mind, I reached out to our hospitalist (Dr. Martin) I discussed the case at length with him. Time: 15:20 Reevaluation #2: At this time the hospitalist requested that I reach out to either orthopedics or podiatry due to the patient's worsening osteomyelitis. Knowing this, I reached out to the senior application security consultant (Dr. Montemayor) and discussed the case with him. Unfortunately I was not able to contact Dr. Montemayor. Next I reached out to another senior application security consultant (Dr. Whittington) and discussed the case briefly with him. Unfortunately, Dr. Whittington is not in the area this weekend is unavailable to take over the matter. Lastly, I reached out the on-call ortho pedic surgeon (Dr. Harris) I discussed the case briefly with him. At this time said he would be happy to consult on the case. However, he did prefer senior application security consultant evaluate the patient if at all possible. Knowing all of this, I reached back out to Dr. Martin to discuss the options. Time: 16:22 Reevaluation #3: , the senior application security consultant (Dr. Montemayor) arrived at the patient's bedside. Dr. Montemayor did a formal evaluation and did mention that the patient is likely going to need a right great toe amputation. At this time he is going to place a consult in for Dr. Thompson (collateral specialist) to do perform the amputation likely sometime tomorrow. Dr. Martin (hospitalist) has consented to admit the patient here to our facility for ongoing care. As it stands right now, all further treatment decisions, modalities, and ultimate patient disposition of be carried out by the hospitalist in consultation with b ot the collateral specialist as well as a senior application security consultant. Time: 17:23 Vital Signs Vital signs: Vital Signs Temperature 98.6 F 10/03/20 13:53 Pulse Rate 95 H 10/03/20 13:53 Respiratory Rate 18 10/03/20 13:53 Blood Pressure 143/86 10/03/20 13:53 Pulse Oximetry (%) 99 10/03/20 13:53 Temperature 98.6 F 10/03/20 13:53 Pulse Rate 91 H 10/03/20 19:03 Respiratory Rate 18 10/03/20 19:03 Blood Pressure 147/72 10/03/20 19:03 Pulse Oximetry (%) 97 10/03/20 19:03 MDM MDM Narrative Medical decision making narrative: Narrative: Lab Data Lab results reviewed: Yes I reviewed the patient's lab results. Result diagrams: 10/03/20 14:28 10/03/20 14:28 Labs: Lab Results 10/03/20 10/03/20 10/03/20 Range/Units 14:14 14:28 14:28 WBC 3.4 L (4.5-11.0) K/mcL RBC 3.28 L (4.50-5.90) M/mcL Hgb 11.3 L (13.5-16.5) g/dL Hct 33.5 L (41.0-55.0) % MCV 102.1 H (80.0-100.0) fL MCH 34.5 H (26.0-34.0) pg MCHC 33.7 (31.0-36.0) g/dL RDW 15.2 H (11.5-14.5) % Plt Count 69 L (140-440) K/mcL MPV 10.2 (7.4-10.4) fL Neut % (Auto) 60.6 (38.0-78.0) % Lymph % (Auto) 29.0 (15.0-49.0) % [place] % (Auto) 7.1 (1.0-12.0) % Eos % (Auto) 3.0 (0.0-7.0) % Baso % (Auto) 0.3 (0.0-2.0) % Lymph # (Auto) 0.98 L (1.50-4.80) K/mcL [place] # (Auto) 0.24 (0.10-0.90) K/mcL Eos # (Auto) 0.10 (0.00-0.70) K/mcL Baso # (Auto) 0.01 (0.00-0.20) K/mcL Absolute Neutrophils 2.05 (1.80-8.00) K/mcL Differential Comment VBG Lactic Acid 2.0 (0.5-2.0) mmol/L Sodium 135 (133-145) mmol/L Potassium 4.0 (3.3-5.1) mmol/L Chloride 103 (96-108) mmol/L Carbon Dioxide 21 L (22-30) mmol/L Anion Gap 11.0 (8.0-16.0) BUN 10 (6-20) mg/dL Creatinine 0.6 L (0.7-1.2) mg/dL POC Creatinine 0.5 L (0.6-1.2) mg/dL GFR Calculation 116 BUN/Creatinine Ratio Glucose 194 H (70-105) mg/dL Calcium 8.5 L (8.6-10.4) mg/dL Total Bilirubin 1.7 H (0.1-1.0) mg/dL AST 34 (<40) U/L ALT 13 (<40) U/L Alkaline Phosphatase 88 (39-117) U/L Total Protein 7.8 (5.9-8.4) gm/dL Albumin 3.1 L (3.2-5.2) gm/dL Globulin 4.7 H (2.2-3.7) gm/dL Albumin/Globulin Ratio 0.7 L (1.0-2.3) Procalcitonin (<0.10) ng/mL Urine Color Urine Appearance Urine pH Ur Specific [place] Urine Protein Urine Glucose (UA) Urine Ketones Urine Occult Blood Urine Nitrate Ur Reducing Substances Urine Bilirubin Urine Ictotest Prot Sulfosalicylic Acd Urine Urobilinogen Ur Leukocyte Esterase Urine RBC Urine WBC Ur Squamous Epith Cells Ur Transition Epith Cell Ur Renal Epithelial Cell Calcium Carbonate Cryst Calcium Phosphate Cryst Calcium Oxalate Crystal Leucine Crystals Cystine Crystals Uric Acid Crystals Triple Phos Crystals Tyrosine Crystals Other Crystals Amorphous Crystals Urine Bacteria Cellular Casts Epithelial Casts Fatty Casts Hyaline Casts Granular Casts Waxy Casts Broad Casts RBC Casts WBC Casts Other Casts Urine Mucus Urine Trichomonas Ur Yeast w Hyphae Urine Yeast (Budding) Urine Sperm Ur Oval Fat Bodies Ur Free Fat Droplets Ur Culture Indicated? 10/03/20 10/03/20 10/03/20 Range/Units 14:28 14:28 14:28 WBC Cancelled (4.5-11.0) K/mcL RBC Cancelled (4.50-5.90) M/mcL Hgb Cancelled (13.5-16.5) g/dL Hct Cancelled (41.0-55.0) % MCV Cancelled (80.0-100.0) fL MCH Cancelled (26.0-34.0) pg MCHC Cancelled (31.0-36.0) g/dL RDW Cancelled (11.5-14.5) % Plt Count Cancelled (140-440) K/mcL MPV Cancelled (7.4-10.4) fL Neut % (Auto) Cancelled (38.0-78.0) % Lymph % (Auto) Cancelled (15.0-49.0) % [place] % (Auto) Cancelled (1.0-12.0) % Eos % (Auto) Cancelled (0.0-7.0) % Baso % (Auto) Cancelled (0.0-2.0) % Lymph # (Auto) Cancelled (1.50-4.80) K/mcL [place] # (Auto) Cancelled (0.10-0.90) K/mcL Eos # (Auto) Cancelled (0.00-0.70) K/mcL Baso # (Auto) Cancelled (0.00-0.20) K/mcL Absolute Neutrophils Cancelled (1.80-8.00) K/mcL Differential Comment Cancelled VBG Lactic Acid (0.5-2.0) mmol/L Sodium Cancelled (133-145) mmol/L Potassium Cancelled (3.3-5.1) mmol/L Chloride Cancelled (96-108) mmol/L Carbon Dioxide Cancelled (22-30) mmol/L Anion Gap Cancelled (8.0-16.0) BUN Cancelled (6-20) mg/dL Creatinine Cancelled (0.7-1.2) mg/dL POC Creatinine Cancelled (0.6-1.2) mg/dL GFR Calculation Cancelled BUN/Creatinine Ratio Cancelled Glucose Cancelled (70-105) mg/dL Calcium Cancelled (8.6-10.4) mg/dL Total Bilirubin Cancelled (0.1-1.0) mg/dL AST Cancelled (<40) U/L ALT Cancelled (<40) U/L Alkaline Phosphatase Cancelled (39-117) U/L Total Protein Cancelled (5.9-8.4) gm/dL Albumin Cancelled (3.2-5.2) gm/dL Globulin Cancelled (2.2-3.7) gm/dL Albumin/Globulin Ratio Cancelled (1.0-2.3) Procalcitonin 0.11 H (<0.10) ng/mL Urine Color Urine Appearance Urine pH Ur Specific [place] Urine Protein Urine Glucose (UA) Urine Ketones Urine Occult Blood Urine Nitrate Ur Reducing Substances Urine Bilirubin Urine Ictotest Prot Sulfosalicylic Acd Urine Urobilinogen Ur Leukocyte Esterase Urine RBC Urine WBC Ur Squamous Epith Cells Ur Transition Epith Cell Ur Renal Epithelial Cell Calcium Carbonate Cryst Calcium Phosphate Cryst Calcium Oxalate Crystal Leucine Crystals Cystine Crystals Uric Acid Crystals Triple Phos Crystals Tyrosine Crystals Other Crystals Amorphous Crystals Urine Bacteria Cellular Casts Epithelial Casts Fatty Casts Hyaline Casts Granular Casts Waxy Casts Broad Casts RBC Casts WBC Casts Other Casts Urine Mucus Urine Trichomonas Ur Yeast w Hyphae Urine Yeast (Budding) Urine Sperm Ur Oval Fat Bodies Ur Free Fat Droplets Ur Culture Indicated? 10/03/20 10/03/20 10/03/20 Range/Units 14:28 14:28 16:11 WBC (4.5-11.0) K/mcL RBC (4.50-5.90) M/mcL Hgb (13.5-16.5) g/dL Hct (41.0-55.0) % MCV (80.0-100.0) fL MCH (26.0-34.0) pg MCHC (31.0-36.0) g/dL RDW (11.5-14.5) % Plt Count (140-440) K/mcL MPV (7.4-10.4) fL Neut % (Auto) (38.0-78.0) % Lymph % (Auto) (15.0-49.0) % [place] % (Auto) (1.0-12.0) % Eos % (Auto) (0.0-7.0) % Baso % (Auto) (0.0-2.0) % Lymph # (Auto) (1.50-4.80) K/mcL [place] # (Auto) (0.10-0.90) K/mcL Eos # (Auto) (0.00-0.70) K/mcL Baso # (Auto) (0.00-0.20) K/mcL Absolute Neutrophils (1.80-8.00) K/mcL Differential Comment VBG Lactic Acid Cancelled (0.5-2.0) mmol/L Sodium (133-145) mmol/L Potassium (3.3-5.1) mmol/L Chloride (96-108) mmol/L Carbon Dioxide (22-30) mmol/L Anion Gap (8.0-16.0) BUN (6-20) mg/dL Creatinine (0.7-1.2) mg/dL POC Creatinine (0.6-1.2) mg/dL GFR Calculation BUN/Creatinine Ratio Glucose (70-105) mg/dL Calcium (8.6-10.4) mg/dL Total Bilirubin (0.1-1.0) mg/dL AST (<40) U/L ALT (<40) U/L Alkaline Phosphatase (39-117) U/L Total Protein (5.9-8.4) gm/dL Albumin (3.2-5.2) gm/dL Globulin (2.2-3.7) gm/dL Albumin/Globulin Ratio (1.0-2.3) Procalcitonin Cancelled (<0.10) ng/mL Urine Color Cancelled Urine Appearance Cancelled Urine pH Cancelled Ur Specific [place] Cancelled Urine Protein Cancelled Urine Glucose (UA) Cancelled Urine Ketones Cancelled Urine Occult Blood Cancelled Urine Nitrate Cancelled Ur Reducing Substances Cancelled Urine Bilirubin Cancelled Urine Ictotest Cancelled Prot Sulfosalicylic Acd Cancelled Urine Urobilinogen Cancelled Ur Leukocyte Esterase Cancelled Urine RBC Cancelled Urine WBC Cancelled Ur Squamous Epith Cells Cancelled Ur Transition Epith Cell Cancelled Ur Renal Epithelial Cell Cancelled Calcium Carbonate Cryst Cancelled Calcium Phosphate Cryst Cancelled Calcium Oxalate Crystal Cancelled Leucine Crystals Cancelled Cystine Crystals Cancelled Uric Acid Crystals Cancelled Triple Phos Crystals Cancelled Tyrosine Crystals Cancelled Other Crystals Cancelled Amorphous Crystals Cancelled Urine Bacteria Cancelled Cellular Casts Cancelled Epithelial Casts Cancelled Fatty Casts Cancelled Hyaline Casts Cancelled Granular Casts Cancelled Waxy Casts Cancelled Broad Casts Cancelled RBC Casts Cancelled WBC Casts Cancelled Other Casts Cancelled Urine Mucus Cancelled Urine Trichomonas Cancelled Ur Yeast w Hyphae Cancelled Urine Yeast (Budding) Cancelled Urine Sperm Cancelled Ur Oval Fat Bodies Cancelled Ur Free Fat Droplets Cancelled Ur Culture Indicated? Cancelled 10/03/20 Range/Units 16:17 WBC (4.5-11.0) K/mcL RBC (4.50-5.90) M/mcL Hgb (13.5-16.5) g/dL Hct (41.0-55.0) % MCV (80.0-100.0) fL MCH (26.0-34.0) pg MCHC (31.0-36.0) g/dL RDW (11.5-14.5) % Plt Count (140-440) K/mcL MPV (7.4-10.4) fL Neut % (Auto) (38.0-78.0) % Lymph % (Auto) (15.0-49.0) % [place] % (Auto) (1.0-12.0) % Eos % (Auto) (0.0-7.0) % Baso % (Auto) (0.0-2.0) % Lymph # (Auto) (1.50-4.80) K/mcL [place] # (Auto) (0.10-0.90) K/mcL Eos # (Auto) (0.00-0.70) K/mcL Baso # (Auto) (0.00-0.20) K/mcL Absolute Neutrophils (1.80-8.00) K/mcL Differential Comment VBG Lactic Acid (0.5-2.0) mmol/L Sodium (133-145) mmol/L Potassium (3.3-5.1) mmol/L Chloride (96-108) mmol/L Carbon Dioxide (22-30) mmol/L Anion Gap (8.0-16.0) BUN (6-20) mg/dL Creatinine (0.7-1.2) mg/dL POC Creatinine (0.6-1.2) mg/dL GFR Calculation BUN/Creatinine Ratio Glucose (70-105) mg/dL Calcium (8.6-10.4) mg/dL Total Bilirubin (0.1-1.0) mg/dL AST (<40) U/L ALT (<40) U/L Alkaline Phosphatase (39-117) U/L Total Protein (5.9-8.4) gm/dL Albumin (3.2-5.2) gm/dL Globulin (2.2-3.7) gm/dL Albumin/Globulin Ratio (1.0-2.3) Procalcitonin (<0.10) ng/mL Urine Color Yellow Urine Appearance Clear Urine pH 6.0 Ur Specific [place] 1.021 Urine Protein Negative Urine Glucose (UA) 50 A Urine Ketones Negative Urine Occult Blood Negative Urine Nitrate Negative Ur Reducing Substances Urine Bilirubin Negative Urine Ictotest Prot Sulfosalicylic Acd Urine Urobilinogen 4.0 A Ur Leukocyte Esterase Negative Urine RBC 0 Urine WBC 2 Ur Squamous Epith Cells 0 Ur Transition Epith Cell Ur Renal Epithelial Cell Calcium Carbonate Cryst Calcium Phosphate Cryst Calcium Oxalate Crystal Mod A Leucine Crystals Cystine Crystals Uric Acid Crystals Triple Phos Crystals Tyrosine Crystals Other Crystals Amorphous Crystals Urine Bacteria None Cellular Casts Epithelial Casts Fatty Casts Hyaline Casts Granular Casts Waxy Casts Broad Casts RBC Casts WBC Casts Other Casts Urine Mucus Few A Urine Trichomonas Ur Yeast w Hyphae Urine Yeast (Budding) Urine Sperm Ur Oval Fat Bodies Ur Free Fat Droplets Ur Culture Indicated? No Radiology Data Radiology results reviewed: Yes I reviewed the patient's radiology results. Radiology results narrative: Ordering Physician: Marv Weeks PA-C Date of Service: 10/03/20 Procedure(s): XR toe RT 1 Accession Number(s): [id number] INDICATION: Worsening erythema, swelling, and ulcer. R/o osteo TECHNIQUE: AP, oblique, lateral right 1st digit COMPARISON: Previous examination dated 09/21/2020 FINDINGS: There is generalized soft tissue swelling in the right 1st digit as well as in the visualized portions of the midfoot. No soft tissue gas or radiopaque foreign body. There is abnormality of the right 1st proximal phalanx. There is cortical destruction in the right 1st proximal and distal phalanges. Appearance is consistent with osteomyelitis. There has been slight interval progression since previous examination. IMPRESSION: 1. Radiographic appearance consistent with osteomyelitis of the right 1st proximal and distal phalanges 2. Generalized soft tissue swelling. No soft tissue gas bubbles or radiopaque foreign body Interpreted and Authenticated by: Karthikeyan Mueller 10/03/20 Discharge Plan Patient/Caregiver Discharge Instructions Pt seen by VISOR INSTALLER/PA only: Yes Clinical Impression: Osteomyelitis of great toe of right foot, History of below-knee amputation of left lower extremity, Anemia, macrocytic Type 2 diabetes mellitus Qualifiers: Diabetes mellitus termite exterminator insulin use: with intermediate use Diabetes mellitus complication status: with other specified complication Qualified Code(s): E11.69 - Type 2 diabetes mellitus with other specified complication Patient Disposition: Xfer As Inpt ([facility]) Condition: Fair Follow up with: Breezy Griffith ARNP [Primary Care Provider] - Prescriptions: No Action Accu-Chek 1 EACH strip 1 each FS ACHS RF: 0 acetaminophen-codeine 1 TAB tablet 1 tab PO Q4 PRN (Reason: Pain) RF: 0 methocarbamol 750 mg tablet 750 mg PO DAILY RF: 0 Lantus Solostar U-100 Insulin 100 unit/mL (3 mL) insulin pen 70 unit SUBCUT BID RF: 0 sulfamethoxazole-trimethoprim [Bactrim DS] 800-160 mg tablet 1 tab PO BID Qty: 20 RF: 0 cephalexin [Keflex] 500 mg capsule 500 mg PO TID Qty: 30 RF: 0 diphenhydramine-acetaminophen [Tylenol PM Extra Strength] 25-500 mg Tablet 2 tab PO HS PRN (Reason: Sleep) RF: 0 insulin glargine See Rx Instructions .ROUTE .COMPLEX RF: 0
[2020-10-03] MEDS ORDERED: VANCOMYCIN PER PHARMACY IV ONE (15:53)
[2020-10-03] MEDS ORDERED: cefTRIAXone 2 GM in DEXTROSE 5% IN WATER 50 ML IV ONE (15:55)
--- NOTE | 2020-10-03 16:37 | Internal Med History&Physical ---
HPI History of Present Illness Patient information: Note initiated : 10/03/20 at 4:23 pm Service Date, if different from initiated Date: [] Patient: Tarun Molina a 50 y/o M admitted on for Toe Cellulitis. Chief Complaint: Right big toe cellulitis/redness History of present illness: Mr. Molina is a 50 year old M with a history of insulin-dependent DM type II, neuropathy/prior left BKA who presents with right big toe swelling redness and oozing along with ulceration that has worsened despite treatment as outpatient on antibiotics. Symptoms started roughly 2 weeks prior to presentation. Patient noted that while transferring from bed back of right big toe would frequently graze against the carpet and formed a blister. Over the next few days there was increasing redness along with swelling and discharge. He was evaluated in the ER and was discharged on Keflex. Over the next 1 week patient failed to improve and presents with worsening redness and swelling. Initial work-up was consistent with osteomyelitis on imaging. Podiatry was con sulted. Patient was started antibiotic coverage. Subsequently hospitalist service was consulted At the time of my evaluation patient is alert and oriented. He denies active distress. He experiences minimal pain due to neuropathy. He denies prior vascular studies. Denies fever, chills, diarrhea, dysuria but endorses to weakness. He also endorses to left BKA stump ulceration that he noted over the last few days due to to rubbing against dressing. He underwent left BKA Easter this year Review of systems 10 point review system was performed and is negative except for ones discussed above PFSH PFSH All Active Problems (Updated 10/03/20 @ 17:24 by Marv Weeks PA-C) Cellulitis and abscess of left lower extremity (Acute) Thrombocytopenia (Acute) Rash (Acute) History of below-knee amputation of left lower extremity (Acute) Hyponatremia (Acute) Fever (Acute) Sinus tachycardia (Acute) Cellulitis of great toe of right foot (Acute) Diabetic foot ulcer (Acute) Osteomyelitis of great toe of right foot (Acute) Anemia, macrocytic (Acute) Hyponatremia (Acute) Hyperglycemia (Acute) Self-care deficit for hygiene (Acute) Stomach ulcer (Chronic) Migraines (Chronic) Liver disease (Chronic) Joint pain (Chronic) Insomnia (Chronic) High blood pressure (Chronic) Type 2 diabetes mellitus (Chronic) Depression (Chronic) Daytime sleepiness (Chronic) Muscle pain (Chronic) Asthma (Chronic) Anxiety (Chronic) Acid reflux (Chronic) Chronic back pain (Chronic) Obesity (Chronic) Restless leg syndrome (Chronic) Diabetic neuropathy (Chronic) Skin fissure (Chronic) Callus of foot (Chronic) Onychomycosis (Chronic) Erectile dysfunction (Chronic) BPH (benign prostatic hyperplasia) (Chronic) 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) Medical History (Updated 10/03/20 @ 17:24 by Marv Weeks PA-C) Acid reflux (Chronic) Anxiety (Chronic) Asthma (Chronic) Bleeding (Inactive) BPH (benign prostatic hyperplasia) (Chronic) Callus of foot (Chronic) Cellulitis (Inactive) Cellulitis of face (Inactive) Cellulitis of left ear (Inactive) Chest wall abscess (Resolved) Chronic back pain (Chronic) Daytime sleepiness (Chronic) Dehiscence of amputation stump (Inactive) Depression (Chronic) Diabetic neuropathy (Chronic) Erectile dysfunction (Chronic) High blood pressure (Chronic) Hypernatremia (Resolved) Hyponatremia (Acute) Improving with treatment. 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 Restless leg syndrome (Chronic) Scrotal abscess (Resolved) Sepsis syndrome (Inactive) Skin fissure (Chronic) Stomach ulcer (Chronic) Thrombocytopenia 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) CT evidence of cirrhosis and probable hyperspenism Type 2 diabetes mellitus (Chronic) Surgical History History of hand surgery (Chronic) Left hand History of incision and drainage (Chronic) 10/31/2019-I & D of right lateral chest wall abscess Family History Mother Hypertension Diabetes Arthritis Stroke Social History (Updated 01/26/20 @ 16:09 by Lianet Allen PA-C) marital status: single occupational status: employed smoking status: Never smoker alcohol intake frequency: holiday/special occasion only substance use type: does not use MEDS/ALLERGIES Home Medications and Allergies Home Medications Medication Instructions Recorded Confirmed Type Accu-Chek 1 each FS ACHS strip 02/23/20 10/03/20 Rx acetaminophen-codeine 1 tab PO Q4 PRN 03/10/20 10/03/20 History insulin glargine [Lantus Solostar 70 unit SUBCUT BID 04/29/20 10/03/20 History U-100 Insulin] methocarbamol 750 mg PO HS 04/29/20 10/03/20 History diphenhydramine-acetaminophen 2 tab PO HS PRN 10/03/20 10/03/20 History [Tylenol PM Extra Strength] insulin lispro [Humalog U-100 1 - 50 sliding scale dose SUBCUT 10/03/20 10/03/20 History Insulin] ACHS Allergies Allergy/AdvReac Type Severity Reaction Status Date / Time Amoxicillin Allergy Mild Hives Verified 08/05/20 19:33 ampicillin Allergy Mild Hives Verified 08/05/20 19:33 latex Allergy Mild Rash Verified 08/05/20 19:33 egg AdvReac Mild Nausea Verified 08/05/20 19:33 EXAM Constitutional Vitals: Temp Pulse Resp BP Pulse Ox 98.6 F 89 16 130/77 94 10/03/20 13:53 10/03/20 16:22 10/03/20 16:22 10/03/20 16:22 10/03/20 16:22 Head normocephalic Oral cavity moist No ear nose discharge Eye movement symmetrical Neck supple no lymphadenopathy S1-S2 occasionally irregular Nonlabored breathing Nondistended nontender abdomen Left BKA stump ulceration, right big toe ulceration Skin no suspicious lesion Psych anxious but alert cooperative Neuro normal higher function DATA Data Completed and Pending Labs: Labs from last 24 hours 10/03/20 10/03/20 10/03/20 16:11 14:28 14:28 WBC RBC Hgb Hct MCV MCH MCHC RDW Plt Count MPV Neut % (Auto) VBG Lactic Acid Pending Sodium Potassium Chloride Carbon Dioxide Anion Gap BUN Creatinine POC Creatinine GFR Calculation Glucose Calcium Total Bilirubin AST ALT Alkaline Phosphatase Total Protein Albumin Globulin Albumin/Globulin Ratio Procalcitonin Pending Urine Color Pending Urine Appearance Pending Urine pH Pending Ur Specific [place] Pending Urine Protein Pending Urine Glucose (UA) Pending Urine Ketones Pending Urine Occult Blood Pending Urine Nitrate Pending Urine Bilirubin Pending Urine Urobilinogen Pending Ur Leukocyte Esterase Pending 10/03/20 10/03/20 14:28 14:28 WBC Pending RBC Pending Hgb Pending Hct Pending MCV Pending MCH Pending MCHC Pending RDW Pending Plt Count Pending MPV Pending Neut % (Auto) Pending VBG Lactic Acid Sodium Pending Potassium Pending Chloride Pending Carbon Dioxide Pending Anion Gap Pending BUN Pending Creatinine Pending POC Creatinine Pending GFR Calculation Pending Glucose Pending Calcium Pending Total Bilirubin Pending AST Pending ALT Pending Alkaline Phosphatase Pending Total Protein Pending Albumin Pending Globulin Pending Albumin/Globulin Ratio Pending Procalcitonin Urine Color Urine Appearance Urine pH Ur Specific [place] Urine Protein Urine Glucose (UA) Urine Ketones Urine Occult Blood Urine Nitrate Urine Bilirubin Urine Urobilinogen Ur Leukocyte Esterase A/P Narrative A/P Narrative: Full code * Osteomyelitis right big toe. Podiatry consult for possible amputation. Antibiotic coverage. Pancultures * Left BKA stump ulceration-wound care consult * DM type II continue basal prandial insulin * History of cirrhosis with thrombocytopenia likely alcoholic. Patient denies recent alcohol use * Chronic anemia, stable * Degenerative joint disease/chronic pain * Prophylaxis heparin Plan * Podiatry and wound care consult * antibiotic coverage * N.p.o. if scheduled for surgery following podiatry consult * Pre-existing medical condition management as above * Nutrition support/therapies Time Spent With Patient Time: Total time spent is greater than 50% in coordination of care (as documented) at patient's floor/unit and/or counseling patient:
[2020-10-03] MEDS ORDERED: VANCOMYCIN 2,000 MG in 0.9 % SODIUM CHLORIDE 500 ML IV ONE (17:00)
--- NOTE | 2020-10-03 17:02 | Orthopedic Consult Note ---
HPI Data of Consult Primary Care Provider: LINDSAY Olvera Consult Narrative Patient Information: Note initiated : 10/03/20 at 4:59 pm Service Date, if different from initiated Date: [] Patient: Tarun Molina 50 y/o M admitted on for Toe Cellulitis. Chief Complaint: [right great toe infection] Long-standing history of infection to the great toe. Left lower extremity has a below the knee ampuation. He is IDDM II uncontrolled. cc:: CC: PFS PFSH All Active Problems Cellulitis and abscess of left lower extremity (Acute) Thrombocytopenia (Acute) Rash (Acute) History of below-knee amputation of left lower extremity (Acute) Hyponatremia (Acute) Fever (Acute) Sinus tachycardia (Acute) Cellulitis of great toe of right foot (Acute) Diabetic foot ulcer (Acute) Hyponatremia (Acute) Hyperglycemia (Acute) Self-care deficit for hygiene (Acute) Stomach ulcer (Chronic) Migraines (Chronic) Liver disease (Chronic) Joint pain (Chronic) Insomnia (Chronic) High blood pressure (Chronic) Type 2 diabetes mellitus (Chronic) Depression (Chronic) Daytime sleepiness (Chronic) Muscle pain (Chronic) Asthma (Chronic) Anxiety (Chronic) Acid reflux (Chronic) Chronic back pain (Chronic) Obesity (Chronic) Restless leg syndrome (Chronic) Diabetic neuropathy (Chronic) Skin fissure (Chronic) Callus of foot (Chronic) Onychomycosis (Chronic) Erectile dysfunction (Chronic) BPH (benign prostatic hyperplasia) (Chronic) 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 Restless leg syndrome (Chronic) Scrotal abscess (Resolved) Sepsis syndrome (Inactive) Skin fissure (Chronic) Stomach ulcer (Chronic) Thrombocytopenia 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) CT evidence of cirrhosis and probable hyperspenism Type 2 diabetes mellitus (Chronic) Surgical History History of hand surgery (Chronic) Left hand History of incision and drainage (Chronic) 10/31/2019-I & D of right lateral chest wall abscess Family History Mother Hypertension Diabetes Arthritis Stroke Social History (Updated 01/26/20 @ 16:09 by Lianet Allen PA-C) marital status: single occupational status: employed smoking status: Never smoker alcohol intake frequency: holiday/special occasion only substance use type: does not use MEDS/ALLERGIES Home Medications and Allergies Home Medications Medication Instructions Recorded Confirmed Type insulin glargine 0 unit SQ BID 02/19/20 08/05/20 History Accu-Chek 1 each FS ACHS strip 02/23/20 04/29/20 Rx acetaminophen-codeine 1 tab PO Q4 PRN 03/10/20 04/29/20 History acetaminophen-codeine 1 tab PO DAILY 04/29/20 09/21/20 History furosemide 20 mg PO DAILY 04/29/20 04/29/20 History insulin glargine [Lantus Solostar 1 unit SUBCUT DAILY 04/29/20 09/21/20 History U-100 Insulin] methocarbamol 750 mg PO DAILY 04/29/20 09/21/20 History liraglutide [Victoza 2-Hiren] mg SUBCUT 08/05/20 History cephalexin [Keflex] 500 mg PO TID #30 cap 09/21/20 Rx sulfamethoxazole-trimethoprim 1 tab PO BID #20 tab 09/21/20 Rx [Bactrim DS] Allergies Allergy/AdvReac Type Severity Reaction Status Date / Time Amoxicillin Allergy Mild Hives Verified 08/05/20 19:33 ampicillin Allergy Mild Hives Verified 08/05/20 19:33 latex Allergy Mild Rash Verified 08/05/20 19:33 egg AdvReac Mild Nausea Verified 08/05/20 19:33 Physical Examination Ankle & Foot right: Ankle appearance: other (Right hallux edemadous and draining ulcerations) A/P Time Spent With Patient Time: Total time spent is greater than 50% in coordination of care (as documented) at patient's floor/unit and/or counseling patient: Osteomyelitis right great toe, requiring amputation urgently. Consulted Dr. Alan consulted from Wound Care.
[2020-10-03 17:22] LABS: Appearance,Urine CLEAR (Clear); Bilirubin,Urine Negative (Negative); Calcium Oxalate Crystals,Urine MOD /hpf; Color,Urine YELLOW; Culture Indicated,Urine No; Glucose,Urine (UA) 50 mg/dL (Negative); Ketones,Urine Negative (Negative); Leukocyte Esterase,Urine Negative /ug (Negative); Mucus,Urine FEW /hpf; Nitrate,Urine Negative (Negative); Protein,Urine Negative (Negative); Specific Gravity,Urine 1.021 (1.000-1.035); Urine Blood Negative (Negative); Urine RBC 0 /hpf (0-1); Urine Squamous Epithelial Cell 0 /hpf (0-4); Urine WBC 2 /hpf (0-4)
[2020-10-03] MEDS ORDERED: ONDANSETRON 4 MG ODT TABLET SL PRN (20:48)
[2020-10-03] MEDS ORDERED: POTASSIUM CHLORIDE 20 MEQ PACKET PO PRN (20:48)
[2020-10-03] MEDS ORDERED: METOPROLOL TARTRATE 5 MG/5 ML VIAL IV PRN (20:48)
[2020-10-03] MEDS ORDERED: PIPERACILLIN SODIUM/TAZOBACTAM 3.375 GM in DEXTROSE 5% IN WATER 50 ML IV SCH (20:48)
[2020-10-03] MEDS ORDERED: hydrALAZINE 20 MG/ML VIAL IV PRN (20:48)
[2020-10-03] MEDS ORDERED: POLYETHYLENE GLYCOL 3350 17 GM PACKET PO PRN (20:48)
[2020-10-03] MEDS ORDERED: BISACODYL 10 MG SUPP.RECT PR PRN (20:48)
[2020-10-03] MEDS ORDERED: ACETAMINOPHEN 650 MG/65 ML BOTTLE IV PRN (20:48)
[2020-10-03] MEDS ORDERED: POTASSIUM CHLORIDE 40 MEQ in DEXTROSE 5% IN WATER 500 ML IV PRN (20:48)
[2020-10-03] MEDS ORDERED: MELATONIN 3 MG TABLET PO PRN (20:48)
[2020-10-03] MEDS ORDERED: ONDANSETRON 4 MG/2 ML VIAL IV PRN (20:48)
[2020-10-03] MEDS ORDERED: DEXTROSE 50% 50 ML VIAL IV PRN (20:48)
[2020-10-03] MEDS ORDERED: DEXTROSE 31 GM ORAL.SUSP PO PRN (20:48)
[2020-10-03] MEDS ORDERED: MAGNESIUM SULFATE 2 GM/50 ML BAG IV PRN (20:48)
[2020-10-03] MEDS ORDERED: VANCOMYCIN PER PHARMACY IV SCH (20:48)
--- NOTE | 2020-10-03 21:51 | Emergency Department Note ---
Extremity Problem HPI General Chief complaint: Extremity Problem,Nontraumatic Stated complaint: toe cellulitis Time Seen by Provider: 10/03/20 13:53 Source: patient Mode of arrival: wheelchair Limitations: no limitations History of Present Illness HPI Narrative: Narrative: See history and physical dictated by Marv Weeks PA-C. I have reviewed this documentation as well as interviewed and examined patient. I agree with this management. Patient has significant edema in his extremities but it is somewhat improved. Patient himself indicates that this is chronic. His cellulitis has improved but the actual osteomyelitis has progressed to the point of severe osteonecrosis necessitating the amputation. Uncertain what formal evaluation of his circulatory runoff to his right lower extremities has been done. Patient reports that he has no kidney history. He is uncertain of his A1c's. Reportedly his blood sugars are frequently elevated and he is trying to make changes in his diet that include up to 8 cans of soda a day which he has reduced significantly. Hopefully long-term he can find excellent motivation for self- care, engagement in his diagnosis through choices, etc. For now he must undergo a major intervention. Related Data Home Medications Medication Instructions Recorded Confirmed acetaminophen-codeine 1 tab PO Q4 PRN 03/10/20 10/03/20 insulin glargine [Lantus Solostar 70 unit SUBCUT BID 04/29/20 10/03/20 U-100 Insulin] methocarbamol 750 mg PO HS 04/29/20 10/03/20 diphenhydramine-acetaminophen 2 tab PO HS PRN 10/03/20 10/03/20 [Tylenol PM Extra Strength] insulin lispro [Humalog U-100 1 - 50 sliding scale dose SUBCUT 10/03/20 10/03/20 Insulin] ACHS Previous Rx's Medication Instructions Recorded Accu-Chek 1 each FS ACHS strip 02/23/20 Allergies Allergy/AdvReac Type Severity Reaction Status Date / Time Amoxicillin Allergy Mild Hives Verified 08/05/20 19:33 ampicillin Allergy Mild Hives Verified 08/05/20 19:33 latex Allergy Mild Rash Verified 08/05/20 19:33 egg AdvReac Mild Nausea Verified 08/05/20 19:33 Review of Systems ROS ROS Narrative: Narrative: PFSH Narrative Patient History Narrative: Narrative: Medical/Surgical/Family History All Active Problems (Updated 10/03/20 @ 17:24 by Mrav Weeks PA-C) Cellulitis and abscess of left lower extremity (Acute) Thrombocytopenia (Acute) Rash (Acute) History of below-knee amputation of left lower extremity (Acute) Hyponatremia (Acute) Fever (Acute) Sinus tachycardia (Acute) Cellulitis of great toe of right foot (Acute) Diabetic foot ulcer (Acute) Osteomyelitis of great toe of right foot (Acute) Anemia, macrocytic (Acute) Hyponatremia (Acute) Hyperglycemia (Acute) Self-care deficit for hygiene (Acute) Stomach ulcer (Chronic) Migraines (Chronic) Liver disease (Chronic) Joint pain (Chronic) Insomnia (Chronic) High blood pressure (Chronic) Type 2 diabetes mellitus (Chronic) Depression (Chronic) Daytime sleepiness (Chronic) Muscle pain (Chronic) Asthma (Chronic) Anxiety (Chronic) Acid reflux (Chronic) Chronic back pain (Chronic) Obesity (Chronic) Restless leg syndrome (Chronic) Diabetic neuropathy (Chronic) Skin fissure (Chronic) Callus of foot (Chronic) Onychomycosis (Chronic) Erectile dysfunction (Chronic) BPH (benign prostatic hyperplasia) (Chronic) 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) Medical History (Updated 10/03/20 @ 17:24 by Marv Weeks PA-C) Acid reflux (Chronic) Anxiety (Chronic) Asthma (Chronic) Bleeding (Inactive) BPH (benign prostatic hyperplasia) (Chronic) Callus of foot (Chronic) Cellulitis (Inactive) Cellulitis of face (Inactive) Cellulitis of left ear (Inactive) Chest wall abscess (Resolved) Chronic back pain (Chronic) Daytime sleepiness (Chronic) Dehiscence of amputation stump (Inactive) Depression (Chronic) Diabetic neuropathy (Chronic) Erectile dysfunction (Chronic) High blood pressure (Chronic) Hypernatremia (Resolved) Hyponatremia (Acute) Improving with treatment. 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 Restless leg syndrome (Chronic) Scrotal abscess (Resolved) Sepsis syndrome (Inactive) Skin fissure (Chronic) Stomach ulcer (Chronic) Thrombocytopenia 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) CT evidence of cirrhosis and probable hyperspenism Type 2 diabetes mellitus (Chronic) Surgical History History of hand surgery (Chronic) Left hand History of incision and drainage (Chronic) 10/31/2019-I & D of right lateral chest wall abscess Family History Diabetes Mother Arthritis Mother Hypertension Mother Stroke Mother Social History Smoking Status: Never smoker Alcohol Intake Frequency: holiday/special occasion only Substance Use: does not use Exam Narrative Narrative: Narrative: Interactive and alert Abdomen is soft and nontender Lungs no dyspnea Extremities, BKA on the left with some skin breakdown mostly superficial. Right hallux is markedly swollen with pinkness and 2 draining areas. Lower leg is on the right with 2-3 pitting edema nontender and not warm. Psych: Pleasant and interactive but serious. General Limitations: no limitations Course Vital Signs Vital signs: Vital Signs Temperature 98.6 F 10/03/20 13:53 Pulse Rate 95 H 10/03/20 13:53 Respiratory Rate 18 10/03/20 13:53 Blood Pressure 143/86 10/03/20 13:53 Pulse Oximetry (%) 99 10/03/20 13:53 Temperature 98.4 F 10/03/20 20:54 Pulse Rate 94 H 10/03/20 20:54 Respiratory Rate 16 10/03/20 20:54 Blood Pressure 164/86 10/03/20 20:54 Pulse Oximetry (%) 99 10/03/20 20:54 MDM MDM Narrative Medical decision making narrative: Narrative: Lab Data Result diagrams: 10/03/20 14:28 10/03/20 14:28 Labs: Lab Results 10/03/20 10/03/20 10/03/20 Range/Units 14:14 14:28 14:28 WBC 3.4 L (4.5-11.0) K/mcL RBC 3.28 L (4.50-5.90) M/mcL Hgb 11.3 L (13.5-16.5) g/dL Hct 33.5 L (41.0-55.0) % MCV 102.1 H (80.0-100.0) fL MCH 34.5 H (26.0-34.0) pg MCHC 33.7 (31.0-36.0) g/dL RDW 15.2 H (11.5-14.5) % Plt Count 69 L (140-440) K/mcL MPV 10.2 (7.4-10.4) fL Neut % (Auto) 60.6 (38.0-78.0) % Lymph % (Auto) 29.0 (15.0-49.0) % [place] % (Auto) 7.1 (1.0-12.0) % Eos % (Auto) 3.0 (0.0-7.0) % Baso % (Auto) 0.3 (0.0-2.0) % Lymph # (Auto) 0.98 L (1.50-4.80) K/mcL [place] # (Auto) 0.24 (0.10-0.90) K/mcL Eos # (Auto) 0.10 (0.00-0.70) K/mcL Baso # (Auto) 0.01 (0.00-0.20) K/mcL Absolute Neutrophils 2.05 (1.80-8.00) K/mcL Differential Comment VBG Lactic Acid 2.0 (0.5-2.0) mmol/L Sodium 135 (133-145) mmol/L Potassium 4.0 (3.3-5.1) mmol/L Chloride 103 (96-108) mmol/L Carbon Dioxide 21 L (22-30) mmol/L Anion Gap 11.0 (8.0-16.0) BUN 10 (6-20) mg/dL Creatinine 0.6 L (0.7-1.2) mg/dL POC Creatinine 0.5 L (0.6-1.2) mg/dL GFR Calculation 116 BUN/Creatinine Ratio Glucose 194 H (70-105) mg/dL Calcium 8.5 L (8.6-10.4) mg/dL Total Bilirubin 1.7 H (0.1-1.0) mg/dL AST 34 (<40) U/L ALT 13 (<40) U/L Alkaline Phosphatase 88 (39-117) U/L Total Protein 7.8 (5.9-8.4) gm/dL Albumin 3.1 L (3.2-5.2) gm/dL Globulin 4.7 H (2.2-3.7) gm/dL Albumin/Globulin Ratio 0.7 L (1.0-2.3) Procalcitonin (<0.10) ng/mL Urine Color Urine Appearance Urine pH Ur Specific [place] Urine Protein Urine Glucose (UA) Urine Ketones Urine Occult Blood Urine Nitrate Ur Reducing Substances Urine Bilirubin Urine Ictotest Prot Sulfosalicylic Acd Urine Urobilinogen Ur Leukocyte Esterase Urine RBC Urine WBC Ur Squamous Epith Cells Ur Transition Epith Cell Ur Renal Epithelial Cell Calcium Carbonate Cryst Calcium Phosphate Cryst Calcium Oxalate Crystal Leucine Crystals Cystine Crystals Uric Acid Crystals Triple Phos Crystals Tyrosine Crystals Other Crystals Amorphous Crystals Urine Bacteria Cellular Casts Epithelial Casts Fatty Casts Hyaline Casts Granular Casts Waxy Casts Broad Casts RBC Casts WBC Casts Other Casts Urine Mucus Urine Trichomonas Ur Yeast w Hyphae Urine Yeast (Budding) Urine Sperm Ur Oval Fat Bodies Ur Free Fat Droplets Ur Culture Indicated? 10/03/20 10/03/20 10/03/20 Range/Units 14:28 14:28 14:28 WBC Cancelled (4.5-11.0) K/mcL RBC Cancelled (4.50-5.90) M/mcL Hgb Cancelled (13.5-16.5) g/dL Hct Cancelled (41.0-55.0) % MCV Cancelled (80.0-100.0) fL MCH Cancelled (26.0-34.0) pg MCHC Cancelled (31.0-36.0) g/dL RDW Cancelled (11.5-14.5) % Plt Count Cancelled (140-440) K/mcL MPV Cancelled (7.4-10.4) fL Neut % (Auto) Cancelled (38.0-78.0) % Lymph % (Auto) Cancelled (15.0-49.0) % [place] % (Auto) Cancelled (1.0-12.0) % Eos % (Auto) Cancelled (0.0-7.0) % Baso % (Auto) Cancelled (0.0-2.0) % Lymph # (Auto) Cancelled (1.50-4.80) K/mcL [place] # (Auto) Cancelled (0.10-0.90) K/mcL Eos # (Auto) Cancelled (0.00-0.70) K/mcL Baso # (Auto) Cancelled (0.00-0.20) K/mcL Absolute Neutrophils Cancelled (1.80-8.00) K/mcL Differential Comment Cancelled VBG Lactic Acid (0.5-2.0) mmol/L Sodium Cancelled (133-145) mmol/L Potassium Cancelled (3.3-5.1) mmol/L Chloride Cancelled (96-108) mmol/L Carbon Dioxide Cancelled (22-30) mmol/L Anion Gap Cancelled (8.0-16.0) BUN Cancelled (6-20) mg/dL Creatinine Cancelled (0.7-1.2) mg/dL POC Creatinine Cancelled (0.6-1.2) mg/dL GFR Calculation Cancelled BUN/Creatinine Ratio Cancelled Glucose Cancelled (70-105) mg/dL Calcium Cancelled (8.6-10.4) mg/dL Total Bilirubin Cancelled (0.1-1.0) mg/dL AST Cancelled (<40) U/L ALT Cancelled (<40) U/L Alkaline Phosphatase Cancelled (39-117) U/L Total Protein Cancelled (5.9-8.4) gm/dL Albumin Cancelled (3.2-5.2) gm/dL Globulin Cancelled (2.2-3.7) gm/dL Albumin/Globulin Ratio Cancelled (1.0-2.3) Procalcitonin 0.11 H (<0.10) ng/mL Urine Color Urine Appearance Urine pH Ur Specific [place] Urine Protein Urine Glucose (UA) Urine Ketones Urine Occult Blood Urine Nitrate Ur Reducing Substances Urine Bilirubin Urine Ictotest Prot Sulfosalicylic Acd Urine Urobilinogen Ur Leukocyte Esterase Urine RBC Urine WBC Ur Squamous Epith Cells Ur Transition Epith Cell Ur Renal Epithelial Cell Calcium Carbonate Cryst Calcium Phosphate Cryst Calcium Oxalate Crystal Leucine Crystals Cystine Crystals Uric Acid Crystals Triple Phos Crystals Tyrosine Crystals Other Crystals Amorphous Crystals Urine Bacteria Cellular Casts Epithelial Casts Fatty Casts Hyaline Casts Granular Casts Waxy Casts Broad Casts RBC Casts WBC Casts Other Casts Urine Mucus Urine Trichomonas Ur Yeast w Hyphae Urine Yeast (Budding) Urine Sperm Ur Oval Fat Bodies Ur Free Fat Droplets Ur Culture Indicated? 10/03/20 10/03/20 10/03/20 Range/Units 14:28 14:28 16:11 WBC (4.5-11.0) K/mcL RBC (4.50-5.90) M/mcL Hgb (13.5-16.5) g/dL Hct (41.0-55.0) % MCV (80.0-100.0) fL MCH (26.0-34.0) pg MCHC (31.0-36.0) g/dL RDW (11.5-14.5) % Plt Count (140-440) K/mcL MPV (7.4-10.4) fL Neut % (Auto) (38.0-78.0) % Lymph % (Auto) (15.0-49.0) % [place] % (Auto) (1.0-12.0) % Eos % (Auto) (0.0-7.0) % Baso % (Auto) (0.0-2.0) % Lymph # (Auto) (1.50-4.80) K/mcL [place] # (Auto) (0.10-0.90) K/mcL Eos # (Auto) (0.00-0.70) K/mcL Baso # (Auto) (0.00-0.20) K/mcL Absolute Neutrophils (1.80-8.00) K/mcL Differential Comment VBG Lactic Acid Cancelled (0.5-2.0) mmol/L Sodium (133-145) mmol/L Potassium (3.3-5.1) mmol/L Chloride (96-108) mmol/L Carbon Dioxide (22-30) mmol/L Anion Gap (8.0-16.0) BUN (6-20) mg/dL Creatinine (0.7-1.2) mg/dL POC Creatinine (0.6-1.2) mg/dL GFR Calculation BUN/Creatinine Ratio Glucose (70-105) mg/dL Calcium (8.6-10.4) mg/dL Total Bilirubin (0.1-1.0) mg/dL AST (<40) U/L ALT (<40) U/L Alkaline Phosphatase (39-117) U/L Total Protein (5.9-8.4) gm/dL Albumin (3.2-5.2) gm/dL Globulin (2.2-3.7) gm/dL Albumin/Globulin Ratio (1.0-2.3) Procalcitonin Cancelled (<0.10) ng/mL Urine Color Cancelled Urine Appearance Cancelled Urine pH Cancelled Ur Specific [place] Cancelled Urine Protein Cancelled Urine Glucose (UA) Cancelled Urine Ketones Cancelled Urine Occult Blood Cancelled Urine Nitrate Cancelled Ur Reducing Substances Cancelled Urine Bilirubin Cancelled Urine Ictotest Cancelled Prot Sulfosalicylic Acd Cancelled Urine Urobilinogen Cancelled Ur Leukocyte Esterase Cancelled Urine RBC Cancelled Urine WBC Cancelled Ur Squamous Epith Cells Cancelled Ur Transition Epith Cell Cancelled Ur Renal Epithelial Cell Cancelled Calcium Carbonate Cryst Cancelled Calcium Phosphate Cryst Cancelled Calcium Oxalate Crystal Cancelled Leucine Crystals Cancelled Cystine Crystals Cancelled Uric Acid Crystals Cancelled Triple Phos Crystals Cancelled Tyrosine Crystals Cancelled Other Crystals Cancelled Amorphous Crystals Cancelled Urine Bacteria Cancelled Cellular Casts Cancelled Epithelial Casts Cancelled Fatty Casts Cancelled Hyaline Casts Cancelled Granular Casts Cancelled Waxy Casts Cancelled Broad Casts Cancelled RBC Casts Cancelled WBC Casts Cancelled Other Casts Cancelled Urine Mucus Cancelled Urine Trichomonas Cancelled Ur Yeast w Hyphae Cancelled Urine Yeast (Budding) Cancelled Urine Sperm Cancelled Ur Oval Fat Bodies Cancelled Ur Free Fat Droplets Cancelled Ur Culture Indicated? Cancelled 10/03/20 Range/Units 16:17 WBC (4.5-11.0) K/mcL RBC (4.50-5.90) M/mcL Hgb (13.5-16.5) g/dL Hct (41.0-55.0) % MCV (80.0-100.0) fL MCH (26.0-34.0) pg MCHC (31.0-36.0) g/dL RDW (11.5-14.5) % Plt Count (140-440) K/mcL MPV (7.4-10.4) fL Neut % (Auto) (38.0-78.0) % Lymph % (Auto) (15.0-49.0) % [place] % (Auto) (1.0-12.0) % Eos % (Auto) (0.0-7.0) % Baso % (Auto) (0.0-2.0) % Lymph # (Auto) (1.50-4.80) K/mcL [place] # (Auto) (0.10-0.90) K/mcL Eos # (Auto) (0.00-0.70) K/mcL Baso # (Auto) (0.00-0.20) K/mcL Absolute Neutrophils (1.80-8.00) K/mcL Differential Comment VBG Lactic Acid (0.5-2.0) mmol/L Sodium (133-145) mmol/L Potassium (3.3-5.1) mmol/L Chloride (96-108) mmol/L Carbon Dioxide (22-30) mmol/L Anion Gap (8.0-16.0) BUN (6-20) mg/dL Creatinine (0.7-1.2) mg/dL POC Creatinine (0.6-1.2) mg/dL GFR Calculation BUN/Creatinine Ratio Glucose (70-105) mg/dL Calcium (8.6-10.4) mg/dL Total Bilirubin (0.1-1.0) mg/dL AST (<40) U/L ALT (<40) U/L Alkaline Phosphatase (39-117) U/L Total Protein (5.9-8.4) gm/dL Albumin (3.2-5.2) gm/dL Globulin (2.2-3.7) gm/dL Albumin/Globulin Ratio (1.0-2.3) Procalcitonin (<0.10) ng/mL Urine Color Yellow Urine Appearance Clear Urine pH 6.0 Ur Specific [place] 1.021 Urine Protein Negative Urine Glucose (UA) 50 A Urine Ketones Negative Urine Occult Blood Negative Urine Nitrate Negative Ur Reducing Substances Urine Bilirubin Negative Urine Ictotest Prot Sulfosalicylic Acd Urine Urobilinogen 4.0 A Ur Leukocyte Esterase Negative Urine RBC 0 Urine WBC 2 Ur Squamous Epith Cells 0 Ur Transition Epith Cell Ur Renal Epithelial Cell Calcium Carbonate Cryst Calcium Phosphate Cryst Calcium Oxalate Crystal Mod A Leucine Crystals Cystine Crystals Uric Acid Crystals Triple Phos Crystals Tyrosine Crystals Other Crystals Amorphous Crystals Urine Bacteria None Cellular Casts Epithelial Casts Fatty Casts Hyaline Casts Granular Casts Waxy Casts Broad Casts RBC Casts WBC Casts Other Casts Urine Mucus Few A Urine Trichomonas Ur Yeast w Hyphae Urine Yeast (Budding) Urine Sperm Ur Oval Fat Bodies Ur Free Fat Droplets Ur Culture Indicated? No Discharge Plan Patient/Caregiver Discharge Instructions Pt seen by SNAKER/PA only: Yes Clinical Impression: Osteomyelitis of great toe of right foot, History of below-knee amputation of left lower extremity, Anemia, macrocytic Type 2 diabetes mellitus Qualifiers: Diabetes mellitus half-way insulin use: with half-way use Diabetes mellitus complication status: with other specified complication Qualified Code(s): E11.69 - Type 2 diabetes mellitus with other specified complication Patient Disposition: Xfer As Inpt ([facility]) Condition: Fair Discharge Date/Time: 10/03/20 20:50
[2020-10-03] MEDS: SENNOSIDES/DOCUSATE SODIUM 1 TAB TABLET PO SCH (22:04)
[2020-10-03] MEDS: 0.9 % SODIUM CHLORIDE 10 ML SYRINGE IV SCH (22:04)
[2020-10-03] MEDS: DOCUSATE SODIUM 100 MG CAPSULE PO SCH (22:04)
[2020-10-03] MEDS: CEFEPIME 2 GM VIAL IV SCH (22:04)
[2020-10-03] MEDS: HEPARIN 5,000 UNIT/ML VIAL SQ SCH (22:05)
[2020-10-03] MEDS: INSULIN LISPRO 1 UNIT/0.01 ML UNIT SQ SCH ×2 (22:06→22:15)
[2020-10-04] MEDS: VANCOMYCIN 1,500 MG in 0.9 % SODIUM CHLORIDE 500 ML IV SCH ×2 (05:00→18:49)
[2020-10-04] MEDS: 0.9 % SODIUM CHLORIDE 10 ML SYRINGE IV SCH ×5 (05:00→22:31)
[2020-10-04 07:29] LABS: Basophils # (Auto) 0.02 K/mcL (0.00-0.20); Basophils % (Auto) 0.5 % (0.0-2.0); Eosinophils # (Auto) 0.11 K/mcL (0.00-0.70); Hematocrit 29.9 % (41.0-55.0); Hemoglobin 10.3 g/dL (13.5-16.5); Lymphocytes # (Auto) 1.16 K/mcL (1.50-4.80); Lymphocytes % (Auto) 31.4 % (15.0-49.0); Mean Corpuscular HGB Conc 34.4 g/dL (31.0-36.0); Mean Platelet Volume 11.4 fL (7.4-10.4); Monocytes # (Auto) 0.27 K/mcL (0.10-0.90); Monocytes % (Auto) 7.3 % (1.0-12.0); Neutrophils % (Auto) 57.8 % (38.0-78.0); Platelet Count 63 K/mcL (140-440); RBC 2.99 M/mcL (4.50-5.90); Red Cell Distribution Width 14.7 % (11.5-14.5); WBC 3.7 K/mcL (4.5-11.0)
[2020-10-04] MEDS: CEFEPIME 2 GM VIAL IV SCH ×3 (07:51→22:31)
[2020-10-04] MEDS: INSULIN LISPRO 1 UNIT/0.01 ML UNIT SQ SCH ×4 (07:51→20:42)
[2020-10-04 07:58] LABS: ALT/SGPT 9 U/L (<40); AST/SGOT 28 U/L (<40); Albumin 2.8 gm/dL (3.2-5.2); Albumin/Globulin Ratio 0.7 (1.0-2.3); Alkaline Phosphatase 74 U/L (39-117); Bilirubin,Direct 0.8 mg/dL (<0.3); Blood Urea Nitrogen 9 mg/dL (6-20); Calcium 8.3 mg/dL (8.6-10.4); Carbon Dioxide 24 mmol/L (22-30); Chloride 104 mmol/L (96-108); Glomerular Filtration Rate 125; Glucose 91 mg/dL (70-105); Lactate Dehydrogenase 252 U/L (135-225); Phosphorous 3.2 mg/dL (2.5-4.5); Triglycerides 79 mg/dL (<150); Uric Acid 2.7 mg/dL (2.5-8.0)
[2020-10-04] MEDS: MULTIVIT,THER IRON,CA,FA & MIN 1 TABLET PO SCH (08:49)
[2020-10-04] MEDS: sitaGLIPtin 100 MG TABLET PO SCH (08:49)
[2020-10-04] MEDS: DOCUSATE SODIUM 100 MG CAPSULE PO SCH ×2 (08:49→20:35)
[2020-10-04] MEDS: HEPARIN 5,000 UNIT/ML VIAL SQ SCH ×2 (08:50→20:35)
[2020-10-04 10:37] LABS: INR 1.3 (0.9-1.1); Prothrombin Time 16.8 sec (11.9-14.5)
--- NOTE | 2020-10-04 15:08 | Internal Med Progress Note ---
SUBJECTIVE Subjective Patient information: Note initiated : 10/04/20 at 3:06 pm Service Date, if different from initiated Date: [] Patient: Tarun Molina 50 y/o M admitted on 10/03/20 for Toe Cellulitis. Chief Complaint: Interval history: Mr. Molina is a 50 year old M with a history of insulin- dependent DM type II, neuropathy/prior left BKA who presents with right big toe swelling redness and oozing along with ulceration that has worsened despite treatment as outpatient on antibiotics. Symptoms started roughly 2 weeks prior to presentation. Patient noted that while transferring from bed back of right big toe would frequently graze against the carpet and formed a blister. Over the next few days there was increasing redness along with swelling and discharge. He was evaluated in the ER and was discharged on Keflex. Over the next 1 week patient failed to improve and presents with worsening redness and swelling. Initial work-up was consistent with osteomyelitis on imaging. Podiatry was consulted. Patient was started antibiotic coverage. Subsequently hospitalist service was consulted At the time of my evaluation patient is alert and oriented. He denies active distress. He experiences minimal pain due to neuropathy. He denies prior vascular studies. Denies fever, chills, diarrhea, dysuria but endorses to weakness. He also endorses to left BKA stump ulceration that he noted over the last few days due to to rubbing against dressing. He underwent left BKA Easter this year 10/04-patient reviewed by wound care/podiatry. Will likely undergo debridement in 24 hours. Per wound care no indication for emergent surgery. We will continue treatment of osteomyelitis with IV antibiotics. No overnight fever chills. No additional concerns. Denies fever chills. Patient's fianc at bedside. Constitutional Vitals: Vital Signs Temp Pulse Resp BP Pulse Ox 98.2 F 87 18 125/74 97 10/04/20 11:55 10/04/20 11:55 10/04/20 11:55 10/04/20 11:55 10/04/20 11:55 Period Temp Pulse Resp BP Sys/Garcia Pulse Ox Last 24 Hr 97.9 F-98.5 F 87-96 16-18 125-164/72-86 94-99 Intake and Output 10/04/20 10/04/20 10/04/20 05:59 13:59 21:59 Intake Total 800 2500 Output Total 1250 1350 Balance -450 1150 Alert oriented No anxiety Nonlabored breathing Left BKA/right big toe cellulitis/surrounding erythema and swelling Intake & Output: Intake & Output 10/04/20 10/04/20 10/04/20 05:59 13:59 21:59 Intake Total 800 2500 Output Total 1250 1350 Balance -450 1150 Intake: IV 500 Vancomycin 1,500 mg In Sodium 500 Chloride 0.9% 500 ml @ 333.3 mls/hr IV Q12H [facility] Rx#: [id number] Oral 800 GI Tube Flush 2000 Output: Void Amount 1250 1350 Other: Urine Appearance Clear Urine Color Dark Yellow Urine Odor Strong OBJ DATA Labs CBC & Chem 7: 10/04/20 05:26 10/04/20 05:26 Labs: Abnormal Lab Results 10/04/20 10/04/20 10/04/20 07:33 05:26 05:26 WBC RBC Hgb Hct MCV MCH RDW Plt Count MPV Lymph # (Auto) PT 16.8 H INR 1.3 H Carbon Dioxide Creatinine 0.5 L POC Creatinine Glucose Hemoglobin A1c 7.0 H Calcium 8.3 L Total Bilirubin 2.0 H Direct Bilirubin 0.8 H GGT 93 H Lactate Dehydrogenase 252 H Albumin 2.8 L Globulin 4.0 H Albumin/Globulin Ratio 0.7 L Procalcitonin Urine Glucose (UA) Urine Urobilinogen Calcium Oxalate Crystal Urine Mucus 10/04/20 10/03/20 10/03/20 05:26 16:17 14:28 WBC 3.7 L RBC 2.99 L Hgb 10.3 L Hct 29.9 L MCV MCH 34.4 H RDW 14.7 H Plt Count 63 L MPV 11.4 H Lymph # (Auto) 1.16 L PT INR Carbon Dioxide Creatinine POC Creatinine Glucose Hemoglobin A1c Calcium Total Bilirubin Direct Bilirubin GGT Lactate Dehydrogenase Albumin Globulin Albumin/Globulin Ratio Procalcitonin 0.11 H Urine Glucose (UA) 50 A Urine Urobilinogen 4.0 A Calcium Oxalate Crystal Mod A Urine Mucus Few A 10/03/20 10/03/20 14:28 14:28 WBC 3.4 L RBC 3.28 L Hgb 11.3 L Hct 33.5 L MCV 102.1 H MCH 34.5 H RDW 15.2 H Plt Count 69 L MPV Lymph # (Auto) 0.98 L PT INR Carbon Dioxide 21 L Creatinine 0.6 L POC Creatinine 0.5 L Glucose 194 H Hemoglobin A1c Calcium 8.5 L Total Bilirubin 1.7 H Direct Bilirubin GGT Lactate Dehydrogenase Albumin 3.1 L Globulin 4.7 H Albumin/Globulin Ratio 0.7 L Procalcitonin Urine Glucose (UA) Urine Urobilinogen Calcium Oxalate Crystal Urine Mucus Meds: Medications Acetaminophen (Tylenol) 650 mg PO Q4-6HP PRN; Protocol PRN Reason: Per Pain Protocol/Fever > 101 Bisacodyl (Dulcolax) 10 mg VA Q2-3DAYS PRN PRN Reason: Constipation Cefepime HCl (Maxipime) 2 gm IV Q8H [facility] Last Admin: 10/04/20 07:51 Dose: 2 gm Documented by: Dextrose (Dextrose 50%) 0 ml IV UD PRN PRN Reason: Hypoglycemia Diagnostic Test (Pha) (Accu-Chek) 1 each FS ACHS [facility] Last Admin: 10/04/20 11:54 Dose: 1 each Documented by: Docusate Sodium (Colace) 100 mg PO BID [facility] Last Admin: 10/04/20 08:49 Dose: 100 mg Documented by: Glucose (Insta-Glucose) 15 gm PO PRN PRN PRN Reason: Hypoglycemia Heparin Sodium (Porcine) (Heparin) 5,000 unit SQ Q12 [facility] Last Admin: 10/04/20 08:50 Dose: 5,000 unit Documented by: Hydralazine HCl (Apresoline) 10 mg IV Q4-6HP PRN PRN Reason: Hypertension Potassium Chloride 40 meq/ (Dextrose) 520 mls @ 130 mls/hr IV UD PRN PRN Reason: K+ = or < 3.5 Last Admin: 10/04/20 08:50 Dose: 130 mls/hr Documented by: Acetaminophen (Ofirmev) 650 mg in 65 mls @ 130 mls/hr IV Q6HP PRN; Protocol PRN Reason: Per Pain Protocol/Fever > 101 Magnesium Sulfate (Magnesium Sulfate) 2 gm in 50 mls @ 50 mls/hr IV UD PRN PRN Reason: MG = or < 1.7 Last Admin: 10/04/20 08:50 Dose: 50 mls/hr Documented by: Vancomycin HCl 1,500 mg/ (Sodium Chloride) 500 mls @ 333.3 mls/hr IV Q12H [facility] Last Infusion: 10/04/20 07:00 Dose: Infused Documented by: Insulin Human Lispro (Humalog) 0 unit SQ ACHS [facility]; Protocol Last Admin: 10/04/20 11:54 Dose: 2 units Documented by: Iron Carb/Multivit/[place]/Folic Acid (Multivitamin W/Minerals) 1 tab PO DAILY [facility] Last Admin: 10/04/20 08:49 Dose: 1 tab Documented by: Melatonin (Melatonin 3mg Tablet) 3 mg PO HSP PRN PRN Reason: Insomnia Metoprolol Tartrate (Lopressor) 5 mg IV Q5M PRN PRN Reason: Heart Rate > 140 bpm Ondansetron HCl (Zofran Odt) 4 mg SL Q4-6HP PRN; Protocol PRN Reason: Nausea And Vomiting Ondansetron HCl (Zofran) 4 mg IV Q4-6HP PRN; Protocol PRN Reason: Nausea And Vomiting Polyethylene Glycol (Miralax) 17 gm PO DAILYP PRN PRN Reason: Constipation Potassium Chloride (Klor-Con) 40 meq PO DAILYP PRN PRN Reason: K+ < 3.5 Senna/Docusate Sodium (Senna Plus Tablet) 1 tab PO HS [facility] Last Admin: 10/03/20 22:04 Dose: 1 tab Documented by: Sitagliptin Phosphate (Januvia) 100 mg PO DAILY [facility] Last Admin: 10/04/20 08:49 Dose: 100 mg Documented by: Sodium Chloride (Saline Flush) 10 ml IV Q8 [facility] Last Admin: 10/04/20 07:52 Dose: 10 ml Documented by: Vancomycin HCl (Vancomycin Per Pharmacy) 1 order IV UD [facility]; Protocol A/P Narrative A/P Narrative: Full code * Osteomyelitis right big toe. No indication for emergent surgery/amputation as per wound care. Ongoing local wound care/antibiotics. * Cellulitis right big toe on antibiotic coverage * Left BKA stump ulceration-wound care managing * DM type II continue basal prandial insulin/CC diet * History of alcoholic cirrhosis with thrombocytopenia . Stable * Chronic anemia, stable * Degenerative joint disease/chronic pain * Prophylaxis heparin Plan * Continue wound care per Dr. Joseph * Continue antibiotic coverage * Pre-existing medical condition management as above * Nutrition support/therapies Time Spent With Patient Time: Total time spent is greater than 50% in coordination of care (as documented) at patient's floor/unit and/or counseling patient: QUALITY VTE Deep Vein Thrombosis/Pulmonary Embolism Present on Admission: No
[2020-10-04] MEDS: ACETAMINOPHEN 325 MG TABLET PO PRN ×2 (15:48→23:45)
--- NOTE | 2020-10-04 16:10 | General Surgery Consult Note ---
HPI Data of Consult Consult date: 10/04/20 Requesting physician: Chidi Montemayor Primary Care Provider: LINDSAY Olvera Consult Narrative Patient Information: Note initiated : 10/04/20 at 3:53 pm Service Date, if different from initiated Date: [] Patient: Tarun Molina 50 y/o M admitted on 10/03/20 for Toe Cellulitis. Chief Complaint: [] Chief complaint: RIGHT foot great toe NON HEALING open wound for over 2 weeks. Reason for consult: Evalutaion for treatement Debridement vs amputation of toe. cc:: CC: Johnny Pena Review of Systems Review of systems: Insulin dependent diabetes, cirrhosis ( ?? ETOH ) thrombocytopenia, poor wound haling and dermal ulceration of LEFT BKA stump. Gastrointestinal Gastrointestinal: Present other (CIRRHOSIS, thrombocytopenia ) Musculoskeletal Musculoskeletal: Present other (LEFT BKA. Skin ulceration of posterior scar.) Integumentary Integumentary: Present as per HPI and wounds (Skin ulcer Stage 3 LEFT posterior BKA scar. OPEN wound RIGHT great toe Stage 3/4 after blister ruptured.) Neurological Neurological: Present other (Diabetes peripheral neuropathy.) Endocrine Endocrine: Present as per HPI Additional comments: Diabetes. Hematologic/Lymphatic Hematologic/Lymphatic: Present other (Cirrhosis with Thrombpocytopenia.) PFSH PFSH All Active Problems Cellulitis and abscess of left lower extremity (Acute) Thrombocytopenia (Acute) Rash (Acute) History of below-knee amputation of left lower extremity (Acute) Hyponatremia (Acute) Fever (Acute) Sinus tachycardia (Acute) Cellulitis of great toe of right foot (Acute) Diabetic foot ulcer (Acute) Osteomyelitis of great toe of right foot (Acute) Anemia, macrocytic (Acute) Hyponatremia (Acute) Hyperglycemia (Acute) Self-care deficit for hygiene (Acute) Stomach ulcer (Chronic) Migraines (Chronic) Liver disease (Chronic) Joint pain (Chronic) Insomnia (Chronic) High blood pressure (Chronic) Type 2 diabetes mellitus (Chronic) Depression (Chronic) Daytime sleepiness (Chronic) Muscle pain (Chronic) Asthma (Chronic) Anxiety (Chronic) Acid reflux (Chronic) Chronic back pain (Chronic) Obesity (Chronic) Restless leg syndrome (Chronic) Diabetic neuropathy (Chronic) Skin fissure (Chronic) Callus of foot (Chronic) Onychomycosis (Chronic) Erectile dysfunction (Chronic) BPH (benign prostatic hyperplasia) (Chronic) 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 Restless leg syndrome (Chronic) Scrotal abscess (Resolved) Sepsis syndrome (Inactive) Skin fissure (Chronic) Stomach ulcer (Chronic) Thrombocytopenia 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) CT evidence of cirrhosis and probable hyperspenism Type 2 diabetes mellitus (Chronic) Surgical History History of hand surgery (Chronic) Left hand History of incision and drainage (Chronic) 10/31/2019-I & D of right lateral chest wall abscess Family History Mother Hypertension Diabetes Arthritis Stroke Social History marital status: single occupational status: employed smoking status: Never smoker alcohol intake frequency: holiday/special occasion only substance use type: does not use MEDS/ALLERGIES Home Medications and Allergies Home Medications Medication Instructions Recorded Confirmed Type Accu-Chek 1 each FS ACHS strip 02/23/20 10/03/20 Rx acetaminophen-codeine 1 tab PO Q4 PRN 03/10/20 10/03/20 History insulin glargine [Lantus Solostar 70 unit SUBCUT BID 04/29/20 10/03/20 History U-100 Insulin] methocarbamol 750 mg PO HS 04/29/20 10/03/20 History diphenhydramine-acetaminophen 2 tab PO HS PRN 10/03/20 10/03/20 History [Tylenol PM Extra Strength] insulin lispro [Humalog U-100 1 - 50 sliding scale dose SUBCUT 10/03/20 10/03/20 History Insulin] ACHS Allergies Allergy/AdvReac Type Severity Reaction Status Date / Time Amoxicillin Allergy Mild Hives Verified 08/05/20 19:33 ampicillin Allergy Mild Hives Verified 08/05/20 19:33 latex Allergy Mild Rash Verified 08/05/20 19:33 egg AdvReac Mild Nausea Verified 08/05/20 19:33 Physical Examination Vital Signs Vital signs: Temp Pulse Resp BP Pulse Ox 98.2 F 87 18 125/74 97 10/04/20 11:55 10/04/20 11:55 10/04/20 11:55 10/04/20 11:55 10/04/20 11:55 General physical appearance General physical exam: well developed, well nourished, no distress and no pain Eyes Eye exam: PERRL and normal ocular movement ENT ENT exam: normal pinna, normal nares, normal mucosa and no congestion Head Head exam IM: Present atraumatic and normocephalic Neck Neck exam: no masses, no lymphadenopathy and no venous distension Cardiovascular Cardiovascular exam IM: Present normal rate and rhythm Respiratory Respiratory exam: normal expansion and clear to auscultation Abdomen Abdomen: Present soft, non tender and bowel sounds Integumentary Integumentary: Present other (Open wound LEFT posterior BKA scar and skin ulcer stage 3 extends up to subcutaneous issue. OPEN wound RIGHT medial great toe involves subcutaneous soft tissue. ) Neurologic Neurologic: Present other (Diabetes with mixed peripheral neuropathy of feet. LEFT Below knee amputation.) Musculoskeletal Musculoskeletal: Present other (Left blow knee amputation. WHEEL chair for ambulation. ) Psychiatric Psychiatric: Present oriented to time, oriented to place, speech is normal and memory intact Results Labs Result diagrams: 10/05/20 04:56 10/05/20 04:56 Labs: Abnormal lab results 10/03/20 10/03/20 10/03/20 Range/Units 14:28 14:28 14:28 WBC 3.4 L (4.5-11.0) K/mcL RBC 3.28 L (4.50-5.90) M/mcL Hgb 11.3 L (13.5-16.5) g/dL Hct 33.5 L (41.0-55.0) % MCV 102.1 H (80.0-100.0) fL MCH 34.5 H (26.0-34.0) pg RDW 15.2 H (11.5-14.5) % Plt Count 69 L (140-440) K/mcL MPV (7.4-10.4) fL Lymph # (Auto) 0.98 L (1.50-4.80) K/mcL PT (11.9-14.5) sec INR (0.9-1.1) Carbon Dioxide 21 L (22-30) mmol/L Creatinine 0.6 L (0.7-1.2) mg/dL POC Creatinine 0.5 L (0.6-1.2) mg/dL Glucose 194 H (70-105) mg/dL Hemoglobin A1c (4.0-6.0) % Hgb Calcium 8.5 L (8.6-10.4) mg/dL Total Bilirubin 1.7 H (0.1-1.0) mg/dL Direct Bilirubin (<0.3) mg/dL GGT (8-61) U/L Lactate Dehydrogenase (135-225) U/L Albumin 3.1 L (3.2-5.2) gm/dL Globulin 4.7 H (2.2-3.7) gm/dL Albumin/Globulin Ratio 0.7 L (1.0-2.3) Procalcitonin 0.11 H (<0.10) ng/mL Urine Glucose (UA) (Negative) mg/dL Urine Urobilinogen mg/dL Calcium Oxalate Crystal (None) /hpf Urine Mucus (None) /hpf 10/03/20 10/04/20 10/04/20 Range/Units 16:17 05:26 05:26 WBC 3.7 L (4.5-11.0) K/mcL RBC 2.99 L (4.50-5.90) M/mcL Hgb 10.3 L (13.5-16.5) g/dL Hct 29.9 L (41.0-55.0) % MCV (80.0-100.0) fL MCH 34.4 H (26.0-34.0) pg RDW 14.7 H (11.5-14.5) % Plt Count 63 L (140-440) K/mcL MPV 11.4 H (7.4-10.4) fL Lymph # (Auto) 1.16 L (1.50-4.80) K/mcL PT (11.9-14.5) sec INR (0.9-1.1) Carbon Dioxide (22-30) mmol/L Creatinine 0.5 L (0.7-1.2) mg/dL POC Creatinine (0.6-1.2) mg/dL Glucose (70-105) mg/dL Hemoglobin A1c (4.0-6.0) % Hgb Calcium 8.3 L (8.6-10.4) mg/dL Total Bilirubin 2.0 H (0.1-1.0) mg/dL Direct Bilirubin 0.8 H (<0.3) mg/dL GGT 93 H (8-61) U/L Lactate Dehydrogenase 252 H (135-225) U/L Albumin 2.8 L (3.2-5.2) gm/dL Globulin 4.0 H (2.2-3.7) gm/dL Albumin/Globulin Ratio 0.7 L (1.0-2.3) Procalcitonin (<0.10) ng/mL Urine Glucose (UA) 50 A (Negative) mg/dL Urine Urobilinogen 4.0 A mg/dL Calcium Oxalate Crystal Mod A (None) /hpf Urine Mucus Few A (None) /hpf 10/04/20 10/04/20 Range/Units 05:26 07:33 WBC (4.5-11.0) K/mcL RBC (4.50-5.90) M/mcL Hgb (13.5-16.5) g/dL Hct (41.0-55.0) % MCV (80.0-100.0) fL MCH (26.0-34.0) pg RDW (11.5-14.5) % Plt Count (140-440) K/mcL MPV (7.4-10.4) fL Lymph # (Auto) (1.50-4.80) K/mcL PT 16.8 H (11.9-14.5) sec INR 1.3 H (0.9-1.1) Carbon Dioxide (22-30) mmol/L Creatinine (0.7-1.2) mg/dL POC Creatinine (0.6-1.2) mg/dL Glucose (70-105) mg/dL Hemoglobin A1c 7.0 H (4.0-6.0) % Hgb Calcium (8.6-10.4) mg/dL Total Bilirubin (0.1-1.0) mg/dL Direct Bilirubin (<0.3) mg/dL GGT (8-61) U/L Lactate Dehydrogenase (135-225) U/L Albumin (3.2-5.2) gm/dL Globulin (2.2-3.7) gm/dL Albumin/Globulin Ratio (1.0-2.3) Procalcitonin (<0.10) ng/mL Urine Glucose (UA) (Negative) mg/dL Urine Urobilinogen mg/dL Calcium Oxalate Crystal (None) /hpf Urine Mucus (None) /hpf Diabetes panel 10/03/20 10/03/20 10/04/20 Range/Units 14:28 14:28 05:26 Sodium 135 Cancelled 136 (133-145) mmol/L Potassium 4.0 Cancelled 3.5 (3.3-5.1) mmol/L Chloride 103 Cancelled 104 (96-108) mmol/L Carbon Dioxide 21 L Cancelled 24 (22-30) mmol/L BUN 10 Cancelled 9 (6-20) mg/dL Creatinine 0.6 L Cancelled 0.5 L (0.7-1.2) mg/dL Glucose 194 H Cancelled 91 (70-105) mg/dL Hemoglobin A1c (4.0-6.0) % Hgb Calcium 8.5 L Cancelled 8.3 L (8.6-10.4) mg/dL AST 34 Cancelled 28 (<40) U/L ALT 13 Cancelled 9 (<40) U/L Alkaline Phosphatase 88 Cancelled 74 (39-117) U/L Total Protein 7.8 Cancelled 6.8 (5.9-8.4) gm/dL Albumin 3.1 L Cancelled 2.8 L (3.2-5.2) gm/dL Triglycerides 79 (<150) mg/dL 10/04/20 Range/Units 05:26 Sodium (133-145) mmol/L Potassium (3.3-5.1) mmol/L Chloride (96-108) mmol/L Carbon Dioxide (22-30) mmol/L BUN (6-20) mg/dL Creatinine (0.7-1.2) mg/dL Glucose (70-105) mg/dL Hemoglobin A1c 7.0 H (4.0-6.0) % Hgb Calcium (8.6-10.4) mg/dL AST (<40) U/L ALT (<40) U/L Alkaline Phosphatase (39-117) U/L Total Protein (5.9-8.4) gm/dL Albumin (3.2-5.2) gm/dL Triglycerides (<150) mg/dL Calcium panel 10/03/20 10/03/20 10/04/20 Range/Units 14:28 14:28 05:26 Calcium 8.5 L Cancelled 8.3 L (8.6-10.4) mg/dL Phosphorus 3.2 (2.5-4.5) mg/dL Albumin 3.1 L Cancelled 2.8 L (3.2-5.2) gm/dL Pituitary panel 10/03/20 10/03/20 10/04/20 Range/Units 14:28 14:28 05:26 Sodium 135 Cancelled 136 (133-145) mmol/L Potassium 4.0 Cancelled 3.5 (3.3-5.1) mmol/L Chloride 103 Cancelled 104 (96-108) mmol/L Carbon Dioxide 21 L Cancelled 24 (22-30) mmol/L BUN 10 Cancelled 9 (6-20) mg/dL Creatinine 0.6 L Cancelled 0.5 L (0.7-1.2) mg/dL Glucose 194 H Cancelled 91 (70-105) mg/dL Calcium 8.5 L Cancelled 8.3 L (8.6-10.4) mg/dL Adrenal panel 10/03/20 10/03/20 10/04/20 Range/Units 14:28 14:28 05:26 Sodium 135 Cancelled 136 (133-145) mmol/L Potassium 4.0 Cancelled 3.5 (3.3-5.1) mmol/L Chloride 103 Cancelled 104 (96-108) mmol/L Carbon Dioxide 21 L Cancelled 24 (22-30) mmol/L BUN 10 Cancelled 9 (6-20) mg/dL Creatinine 0.6 L Cancelled 0.5 L (0.7-1.2) mg/dL Glucose 194 H Cancelled 91 (70-105) mg/dL Calcium 8.5 L Cancelled 8.3 L (8.6-10.4) mg/dL Total Bilirubin 1.7 H Cancelled 2.0 H (0.1-1.0) mg/dL AST 34 Cancelled 28 (<40) U/L ALT 13 Cancelled 9 (<40) U/L Alkaline Phosphatase 88 Cancelled 74 (39-117) U/L Total Protein 7.8 Cancelled 6.8 (5.9-8.4) gm/dL Albumin 3.1 L Cancelled 2.8 L (3.2-5.2) gm/dL All other labs normal. A/P Narrative A/P Narrative: Assessment: DFU Right great toe Stage 3/4. Chronic. Open skin ulcere wound LEFT B posterior flap above scar. Cirrhosis with thrombocytopenia, anemia Obesity Wheel chair for ambulation. Plan: For local wound care at this time. Patient needs Hematology / ID consultation Following this patient with Hospitalist physician. Time Spent With Patient Time: Total time spent is greater than 50% in coordination of care (as documented) at patient's floor/unit and/or counseling patient: Total time spent with greater than 50% in coordination of care (as documented) at patient's floor/unit and/or counseling patient:: Greater than 35 minutes
[2020-10-04] MEDS: SENNOSIDES/DOCUSATE SODIUM 1 TAB TABLET PO SCH (20:35)
[2020-10-05] MEDS: CEFEPIME 2 GM VIAL IV SCH ×3 (06:02→22:36)
[2020-10-05] MEDS: 0.9 % SODIUM CHLORIDE 10 ML SYRINGE IV SCH ×3 (06:02→22:36)
[2020-10-05 07:21] LABS: Basophils # (Auto) 0.01 K/mcL (0.00-0.20); Basophils % (Auto) 0.3 % (0.0-2.0); Eosinophils % (Auto) 3.1 % (0.0-7.0); Hematocrit 30.8 % (41.0-55.0); Hemoglobin 10.4 g/dL (13.5-16.5); Lymphocytes # (Auto) 1.06 K/mcL (1.50-4.80); Lymphocytes % (Auto) 32.4 % (15.0-49.0); Mean Cell Volume 102.3 fL (80.0-100.0); Mean Corpuscular HGB Conc 33.8 g/dL (31.0-36.0); Mean Platelet Volume 11.7 fL (7.4-10.4); Monocytes # (Auto) 0.31 K/mcL (0.10-0.90); Monocytes % (Auto) 9.5 % (1.0-12.0); Neutrophils % (Auto) 54.7 % (38.0-78.0); Platelet Count 60 K/mcL (140-440); RBC 3.01 M/mcL (4.50-5.90); Red Cell Distribution Width 14.8 % (11.5-14.5); WBC 3.3 K/mcL (4.5-11.0)
--- NOTE | 2020-10-05 07:31 | XRay Report ---
INDICATION: Interval Change TECHNIQUE: AP portable upright chest x-ray COMPARISON: Previous chest x-ray dated 08/06/2020 FINDINGS: Lungs:Lungs are negative. No focal pulmonary parenchymal infiltrate or mass Heart, vascular:There is cardiomegaly, unchanged. Pulmonary vascularity is within normal limits. No pulmonary edema. Vascularity appears improved Mediastinum, joyce:No mediastinal widening. No hilar mass Pleura:No pleural fluid. No pleural-based mass or calcification Skeletal:Negative. IMPRESSION: 1. Cardiomegaly, unchanged 2. Pulmonary vascularity appears improved. No pulmonary edema. No focal parenchymal infiltrate Interpreted and Authenticated by: Karthikeyan Mueller 10/05/20
[2020-10-05 07:32] LABS: ALT/SGPT 10 U/L (<40); AST/SGOT 28 U/L (<40); Albumin 2.8 gm/dL (3.2-5.2); Albumin/Globulin Ratio 0.7 (1.0-2.3); Alkaline Phosphatase 76 U/L (39-117); Bilirubin,Direct 0.5 mg/dL (<0.3); Bilirubin,Total 1.7 mg/dL (0.1-1.0); Blood Urea Nitrogen 9 mg/dL (6-20); Calcium 8.4 mg/dL (8.6-10.4); Carbon Dioxide 26 mmol/L (22-30); Chloride 101 mmol/L (96-108); Globulin 4.3 gm/dL (2.2-3.7); Glomerular Filtration Rate 116; Glucose 176 mg/dL (70-105); Lactate Dehydrogenase 261 U/L (135-225); Phosphorous 3.6 mg/dL (2.5-4.5); Triglycerides 77 mg/dL (<150); Uric Acid 2.8 mg/dL (2.5-8.0)
[2020-10-05] MEDS: INSULIN LISPRO 1 UNIT/0.01 ML UNIT SQ SCH ×4 (07:45→21:22)
[2020-10-05] MEDS: DOCUSATE SODIUM 100 MG CAPSULE PO SCH ×2 (07:52→21:08)
--- NOTE | 2020-10-05 08:55 | Internal Med Progress Note ---
SUBJECTIVE Subjective Patient information: Note initiated : 10/05/20 at 8:52 am Service Date, if different from initiated Date: [] Patient: Tarun Molina a 50 y/o M admitted on 10/03/20 for Toe Cellulitis. Chief Complaint: [] Interval history: Mr. Molina is a 50 year old M with a history of insulin- dependent DM type II, neuropathy/prior left BKA who presents with right big toe swelling redness and oozing along with ulceration that has worsened despite treatment as outpatient on antibiotics. Symptoms started roughly 2 weeks prior to presentation. Patient noted that while transferring from bed back of right big toe would frequently graze against the carpet and formed a blister. Over the next few days there was increasing redness along with swelling and discharge. He was evaluated in the ER and was discharged on Keflex. Over the next 1 week patient failed to improve and presents with worsening redness and swelling. Initial work-up was consistent with osteomyelitis on imaging. Podiatry was consulted. Patient was started antibiotic coverage. Subsequently hospitalist service was consulted At the time of my evaluation patient is alert and oriented. He denies active distress. He experiences minimal pain due to neuropathy. He denies prior vascular studies. Denies fever, chills, diarrhea, dysuria but endorses to weakness. He also endorses to left BKA stump ulceration that he noted over the last few days due to to rubbing against dressing. He underwent left BKA Easter this year 10/04-patient reviewed by wound care/podiatry. Will likely undergo debridement in 24 hours. Per wound care no indication for emergent surgery. We will continue treatment of osteomyelitis with IV antibiotics. No overnight fever chills. No additional concerns. Denies fever chills. Patient's fianc at bedside. 10/05-patient doing well. Case discussed with surgery. Will undergo possible debridement and dressing today. Surgery recommends follow-up with podiatry as outpatient. On antibiotic coverage. Attempted to reach podiatry Dr. Whittington on phone. Anticipate discharge in 24 to 48 hours on IV antibiotics/podiatry follow-up for possible amputation right big toe for underlying osteomyelitis. Stable hemodynamics/labs. Constitutional Vitals: Vital Signs Temp Pulse Resp BP Pulse Ox 98.1 F 83 18 128/85 97 10/05/20 07:19 10/05/20 07:19 10/05/20 07:19 10/05/20 07:19 10/05/20 07:19 Period Temp Pulse Resp BP Sys/Garcia Pulse Ox Last 24 Hr 97.8 F-98.5 F 83-93 - 122-140/66-85 97-98 Intake and Output 10/04/20 10/05/20 10/05/20 21:59 05:59 13:59 Intake Total 240 820 Output Total 1800 0 Balance -1560 820 Weight 134.263 kg Alert oriented No anxiety Left BKA stump ulceration Right big toe cellulitis improving currently on dressing Intake & Output: Intake & Output 10/04/20 10/05/20 10/05/20 21:59 05:59 13:59 Intake Total 240 820 Output Total 1800 0 Balance -1560 820 Weight 134.263 kg Intake: Oral 240 820 Output: Void Amount 1800 0 Other: Meal Dinner Percent of Meal Consumed 100% Feeding Ability Independent Urine Appearance Clear Urine Color Dark Yellow Urine Odor Strong Stool Size Copious Stool Color Brown Stool Consistency Soft # Bowel Movements 1 OBJ DATA Labs CBC & Chem 7: 10/05/20 04:56 10/05/20 04:56 Labs: Abnormal Lab Results 10/05/20 10/05/20 10/04/20 04:56 04:56 07:33 WBC 3.3 L RBC 3.01 L Hgb 10.4 L Hct 30.8 L MCV 102.3 H MCH 34.6 H RDW 14.8 H Plt Count 60 L MPV 11.7 H Lymph # (Auto) 1.06 L Absolute Neutrophils 1.79 L PT 16.8 H INR 1.3 H Carbon Dioxide Anion Gap 6.0 L Creatinine 0.6 L POC Creatinine Glucose 176 H Hemoglobin A1c Calcium 8.4 L Total Bilirubin 1.7 H Direct Bilirubin 0.5 H GGT 94 H Lactate Dehydrogenase 261 H Albumin 2.8 L Globulin 4.3 H Albumin/Globulin Ratio 0.7 L Procalcitonin Urine Glucose (UA) Urine Urobilinogen Calcium Oxalate Crystal Urine Mucus 10/04/20 10/04/20 10/04/20 05:26 05:26 05:26 WBC 3.7 L RBC 2.99 L Hgb 10.3 L Hct 29.9 L MCV MCH 34.4 H RDW 14.7 H Plt Count 63 L MPV 11.4 H Lymph # (Auto) 1.16 L Absolute Neutrophils PT INR Carbon Dioxide Anion Gap Creatinine 0.5 L POC Creatinine Glucose Hemoglobin A1c 7.0 H Calcium 8.3 L Total Bilirubin 2.0 H Direct Bilirubin 0.8 H GGT 93 H Lactate Dehydrogenase 252 H Albumin 2.8 L Globulin 4.0 H Albumin/Globulin Ratio 0.7 L Procalcitonin Urine Glucose (UA) Urine Urobilinogen Calcium Oxalate Crystal Urine Mucus 10/03/20 10/03/20 10/03/20 16:17 14:28 14:28 WBC RBC Hgb Hct MCV MCH RDW Plt Count MPV Lymph # (Auto) Absolute Neutrophils PT INR Carbon Dioxide 21 L Anion Gap Creatinine 0.6 L POC Creatinine 0.5 L Glucose 194 H Hemoglobin A1c Calcium 8.5 L Total Bilirubin 1.7 H Direct Bilirubin GGT Lactate Dehydrogenase Albumin 3.1 L Globulin 4.7 H Albumin/Globulin Ratio 0.7 L Procalcitonin 0.11 H Urine Glucose (UA) 50 A Urine Urobilinogen 4.0 A Calcium Oxalate Crystal Mod A Urine Mucus Few A 10/03/20 14:28 WBC 3.4 L RBC 3.28 L Hgb 11.3 L Hct 33.5 L MCV 102.1 H MCH 34.5 H RDW 15.2 H Plt Count 69 L MPV Lymph # (Auto) 0.98 L Absolute Neutrophils PT INR Carbon Dioxide Anion Gap Creatinine POC Creatinine Glucose Hemoglobin A1c Calcium Total Bilirubin Direct Bilirubin GGT Lactate Dehydrogenase Albumin Globulin Albumin/Globulin Ratio Procalcitonin Urine Glucose (UA) Urine Urobilinogen Calcium Oxalate Crystal Urine Mucus Meds: Medications Acetaminophen (Tylenol) 650 mg PO Q4-6HP PRN; Protocol PRN Reason: Per Pain Protocol/Fever > 101 Last Admin: 10/04/20 23:45 Dose: 650 mg Documented by: Bisacodyl (Dulcolax) 10 mg IN Q2-3DAYS PRN PRN Reason: Constipation Cefepime HCl (Maxipime) 2 gm IV Q8H [facility] Last Admin: 10/05/20 06:02 Dose: 2 gm Documented by: Dextrose (Dextrose 50%) 0 ml IV UD PRN PRN Reason: Hypoglycemia Diagnostic Test (Pha) (Accu-Chek) 1 each FS ACHS [facility] Last Admin: 10/05/20 07:45 Dose: 1 each Documented by: Docusate Sodium (Colace) 100 mg PO BID [facility] Last Admin: 10/05/20 07:52 Dose: Not Given Documented by: Glucose (Insta-Glucose) 15 gm PO PRN PRN PRN Reason: Hypoglycemia Heparin Sodium (Porcine) (Heparin) 5,000 unit SQ Q12 [facility] Last Admin: 10/04/20 20:35 Dose: 5,000 unit Documented by: Hydralazine HCl (Apresoline) 10 mg IV Q4-6HP PRN PRN Reason: Hypertension Potassium Chloride 40 meq/ (Dextrose) 520 mls @ 130 mls/hr IV UD PRN PRN Reason: K+ = or < 3.5 Last Infusion: 10/04/20 13:30 Dose: Infused Documented by: Acetaminophen (Ofirmev) 650 mg in 65 mls @ 130 mls/hr IV Q6HP PRN; Protocol PRN Reason: Per Pain Protocol/Fever > 101 Magnesium Sulfate (Magnesium Sulfate) 2 gm in 50 mls @ 50 mls/hr IV UD PRN PRN Reason: MG = or < 1.7 Last Infusion: 10/04/20 09:50 Dose: Infused Documented by: Vancomycin HCl 1,500 mg/ (Sodium Chloride) 500 mls @ 333.3 mls/hr IV Q12H [facility] Last Admin: 10/04/20 18:49 Dose: 333 mls/hr Documented by: Insulin Human Lispro (Humalog) 0 unit SQ ACHS [facility]; Protocol Last Admin: 10/05/20 07:45 Dose: Not Given Documented by: Iron Carb/Multivit/Tin Flopper/Folic Acid (Multivitamin W/Minerals) 1 tab PO DAILY [facility] Last Admin: 10/04/20 08:49 Dose: 1 tab Documented by: Melatonin (Melatonin 3mg Tablet) 3 mg PO HSP PRN PRN Reason: Insomnia Metoprolol Tartrate (Lopressor) 5 mg IV Q5M PRN PRN Reason: Heart Rate > 140 bpm Ondansetron HCl (Zofran Odt) 4 mg SL Q4-6HP PRN; Protocol PRN Reason: Nausea And Vomiting Ondansetron HCl (Zofran) 4 mg IV Q4-6HP PRN; Protocol PRN Reason: Nausea And Vomiting Polyethylene Glycol (Miralax) 17 gm PO DAILYP PRN PRN Reason: Constipation Potassium Chloride (Klor-Con) 40 meq PO DAILYP PRN PRN Reason: K+ < 3.5 Senna/Docusate Sodium (Senna Plus Tablet) 1 tab PO HS [facility] Last Admin: 10/04/20 20:35 Dose: Not Given Documented by: Sitagliptin Phosphate (Januvia) 100 mg PO DAILY [facility] Last Admin: 10/04/20 08:49 Dose: 100 mg Documented by: Sodium Chloride (Saline Flush) 10 ml IV Q8 [facility] Last Admin: 10/05/20 06:02 Dose: 10 ml Documented by: Vancomycin HCl (Vancomycin Per Pharmacy) 1 order IV UD [facility]; Protocol A/P Narrative A/P Narrative: Full code * Osteomyelitis right big toe. No indication for emergent surgery/amputation as per wound care. Ongoing local wound care/antibiotics. Await further podiatry recommendations * Cellulitis right big toe continue antibiotic coverage * Left BKA stump ulceration-wound care managing * DM type II continue basal prandial insulin/CC diet * History of alcoholic cirrhosis with thrombocytopenia . Stable hepatic f unction. * Chronic anemia, stable * Degenerative joint disease/chronic pain * Prophylaxis heparin Plan * Antibiotic coverage * Podiatry/wound care consult * Pre-existing medical condition management as above * Nutrition support/therapies Time Spent With Patient Time: Total time spent is greater than 50% in coordination of care (as documented) at patient's floor/unit and/or counseling patient: QUALITY VTE Deep Vein Thrombosis/Pulmonary Embolism Present on Admission: No
[2020-10-05] MEDS ORDERED: FLU VACC QS2020-21(6MOS UP)/PF 60 MCG/0.5 ML SYRINGE IM ONE (10:00)
[2020-10-05] MEDS: HEPARIN 5,000 UNIT/ML VIAL SQ SCH ×2 (10:27→21:07)
[2020-10-05] MEDS: MULTIVIT,THER IRON,CA,FA & MIN 1 TABLET PO SCH (10:27)
[2020-10-05] MEDS: sitaGLIPtin 100 MG TABLET PO SCH (10:27)
[2020-10-05] MEDS: VANCOMYCIN 1,500 MG in 0.9 % SODIUM CHLORIDE 500 ML IV SCH ×2 (10:27→20:55)
--- NOTE | 2020-10-05 12:27 | Brief Operative Note ---
Brief Operative Note Date of procedure: 10/05/20 Pre-op diagnosis: Infected wound RIGHT great toe Post-op diagnosis: same Procedure: Bedside debridement. Tissue for c/s Grafts/Implants: No Anesthesia: none Findings: DFU Stage 3 . Depth sub cutaneous tissue, Fungus debris toe nail Complications: none Surgeon: Angel Thompson Estimated blood loss (cc): 1 Specimens Removed/Pathology: other (Tissue for c/s) Condition: stable Disposition: floor
--- NOTE | 2020-10-05 12:36 | General Surgery Progress Note ---
SUBJECTIVE Subjective Patient information: Note initiated : 10/05/20 at 12:27 pm Service Date, if different from initiated Date: [] Patient: Tarun Molina 50 y/o M admitted on 10/03/20 for Toe Cellulitis. Chief Complaint: [] Additional PMFSH (Level 3 Only): Patient seen with Etta REAVES. Progress reviewed with Dr. Pena, Hospitalist physician. Constitutional Vitals: Vital Signs Temp Pulse Resp BP Pulse Ox 98.6 F 87 18 149/89 96 10/05/20 11:41 10/05/20 11:41 10/05/20 11:41 10/05/20 11:41 10/05/20 11:41 Period Temp Pulse Resp BP Sys/Garcia Pulse Ox Last 24 Hr 97.8 F-98.6 F 83-93 - 122-149/66-89 96-98 Intake and Output 10/04/20 10/05/20 10/05/20 21:59 05:59 13:59 Intake Total 740 820 240 Output Total 1800 0 Balance -1060 820 240 Weight 296 lb Intake & Output: Intake & Output 10/04/20 10/05/20 10/05/20 21:59 05:59 13:59 Intake Total 740 820 240 Output Total 1800 0 Balance -1060 820 240 Weight 296 lb Intake: IV 500 Vancomycin 1,500 mg In Sodium 500 Chloride 0.9% 500 ml @ 333.3 mls/hr IV Q12H [facility] Rx#: [id number] Oral 240 820 240 Output: Void Amount 1800 0 Other: Meal Dinner Breakfast Percent of Meal Consumed 100% 100% Feeding Ability Independent Independent Urine Appearance Clear Urine Color Dark Yellow Urine Odor Strong Stool Size Copious Stool Color Brown Stool Consistency Soft # Bowel Movements 1 Exam: AVSS. No changes SULEMA: Left BKA stump wound is stage 2 Epidermal ulcer . For Bacitracin and Mepilex border foam Right great toe : Mycotic toe nail and Stage 3 ulcer medial dorsal toe. Depth subcutaneous tissue Bedside debridement performed. Specimen toe ulcer for c/s. A/P Narrative A/P Narrative: Assessment: IDDM. DFU Stage 2, Right great toe. Mycotic toe nail Cirrhosis . Thrombocytopenia, Coagulopathy On IV antibiotics at this time. Plan: Local wound care for now. Patient has out patient appointment to se Dr. Whittington 10/07/2020 Recommend: GI consult for Cirrhosis Hematology consult for coagulopathy / thrombocytopenia I D consult for antibiotics. ALL CONSULTS CAN BE DONE OUT PATIENT. Time Spent With Patient Time: Total time spent is greater than 50% in coordination of care (as documented) at patient's floor/unit and/or counseling patient: Total time spent with greater than 50% in coordination of care (as documented) at patient's floor/unit and/or counseling patient:: 25 - 35 minutes
[2020-10-05] MEDS: ACETAMINOPHEN 325 MG TABLET PO PRN ×2 (16:37→23:25)
[2020-10-05] MEDS ORDERED: METHOCARBAMOL 750 MG TABLET PO SCH (21:00)
[2020-10-05] MEDS: INSULIN GLARGINE, HUMAN 1 UNIT/0.01 ML SQ SCH (21:06)
[2020-10-05] MEDS: SENNOSIDES/DOCUSATE SODIUM 1 TAB TABLET PO SCH (21:08)
[2020-10-06] MEDS: CEFEPIME 2 GM VIAL IV SCH ×2 (06:38→13:00)
[2020-10-06] MEDS: 0.9 % SODIUM CHLORIDE 10 ML SYRINGE IV SCH ×2 (06:38→13:00)
[2020-10-06 07:49] LABS: ALT/SGPT 10 U/L (<40); AST/SGOT 32 U/L (<40); Albumin 2.8 gm/dL (3.2-5.2); Albumin/Globulin Ratio 0.7 (1.0-2.3); Alkaline Phosphatase 77 U/L (39-117); Bilirubin,Direct 0.6 mg/dL (<0.3); Bilirubin,Total 1.5 mg/dL (0.1-1.0); Blood Urea Nitrogen 8 mg/dL (6-20); Calcium 8.7 mg/dL (8.6-10.4); Carbon Dioxide 27 mmol/L (22-30); Chloride 105 mmol/L (96-108); Globulin 4.3 gm/dL (2.2-3.7); Glomerular Filtration Rate 125; Glucose 91 mg/dL (70-105); Lactate Dehydrogenase 264 U/L (135-225); Triglycerides 76 mg/dL (<150); Uric Acid 2.8 mg/dL (2.5-8.0)
[2020-10-06 07:57] LABS: Basophils # (Auto) 0.01 K/mcL (0.00-0.20); Basophils % (Auto) 0.3 % (0.0-2.0); Eosinophils # (Auto) 0.15 K/mcL (0.00-0.70); Eosinophils % (Auto) 4.4 % (0.0-7.0); Hematocrit 31.1 % (41.0-55.0); Hemoglobin 10.7 g/dL (13.5-16.5); Lymphocytes % (Auto) 32.1 % (15.0-49.0); Mean Cell Volume 102.3 fL (80.0-100.0); Mean Corpuscular HGB Conc 34.4 g/dL (31.0-36.0); Monocytes # (Auto) 0.28 K/mcL (0.10-0.90); Monocytes % (Auto) 8.2 % (1.0-12.0); Platelet Count 62 K/mcL (140-440); RBC 3.04 M/mcL (4.50-5.90); Red Cell Distribution Width 14.7 % (11.5-14.5); WBC 3.4 K/mcL (4.5-11.0)
[2020-10-06] MEDS: DOCUSATE SODIUM 100 MG CAPSULE PO SCH (07:58)
[2020-10-06] MEDS: INSULIN LISPRO 1 UNIT/0.01 ML UNIT SQ SCH ×2 (07:58→13:00)
[2020-10-06] MEDS: HEPARIN 5,000 UNIT/ML VIAL SQ SCH (07:59)
[2020-10-06] MEDS: sitaGLIPtin 100 MG TABLET PO SCH (07:59)
[2020-10-06] MEDS: ACETAMINOPHEN 325 MG TABLET PO PRN (07:59)
[2020-10-06] MEDS: MULTIVIT,THER IRON,CA,FA & MIN 1 TABLET PO SCH (07:59)
--- NOTE | 2020-10-06 09:01 | Discharge Summary ---
Discharge Provider Provider Patient information: Note initiated : 10/06/20 at 8:56 am Service Date, if different from initiated Date: [] Patient: Tarun Molina 50 y/o M admitted on 10/03/20 for Toe Cellulitis. Discharge diagnosis * Osteomyelitis right big toe. No indication for emergent surgery/amputation as per wound care. Status post superficial debridement. Wound care recommends follow-up with podiatry for further evaluation and possible amputation versus long-term antibiotics. Discharging with instructions as below. Continue oral antibiotic for additional 7 days as per wound care recommendations until ID follow-up(only if patient does not undergo amputation and long-term antibiotic treatment for osteomyelitis considered) * Cellulitis right big toe clinically improved on antibiotic coverage * Left BKA stump ulceration-continue dressing changes per wound care recommendations * DM type II continue basal prandial insulin/CC diet * History of alcoholic cirrhosis with thrombocytopenia . Stable hepatic function. * Chronic anemia, stable * Degenerative joint disease/chronic pain Brief hospital course Interval history: Mr. Molina is a 50 year old M with a history of insulin- dependent DM type II, neuropathy/prior left BKA who presents with right big toe swelling redness and oozing along with ulceration that has worsened despite treatment as outpatient on antibiotics. Symptoms started roughly 2 weeks prior to presentation. Patient noted that while transferring from bed back of right big toe would frequently graze against the carpet and formed a blister. Over the next few days there was increasing redness along with swelling and discharge. He was evaluated in the ER and was discharged on Keflex. Over the next 1 week patient failed to improve and presents with worsening redness and swelling. Initial work-up was consistent with osteomyelitis on imaging. Podiatry was consulted. Patient was started antibiotic coverage. Subsequently hospitalist service was consulted At the time of my evaluation patient is alert and oriented. He denies active distress. He experiences minimal pain due to neuropathy. He denies prior vascular studies. Denies fever, chills, diarrhea, dysuria but endorses to weakness. He also endorses to left BKA stump ulceration that he noted over the last few days due to to rubbing against dressing. He underwent left BKA Easter this year 10/04-patient reviewed by wound care/podiatry. Will likely undergo debridement in 24 hours. Per wound care no indication for emergent surgery. We will continue treatment of osteomyelitis with IV antibiotics. No overnight fever chills. No additional concerns. Denies fever chills. Patient's fianc at bedside. 10/05-patient doing well. Case discussed with surgery. Will undergo possible debridement and dressing today. Surgery recommends follow-up with podiatry as outpatient. On antibiotic coverage. Attempted to reach podiatry Dr. Whittington on phone. Anticipate discharge in 24 to 48 hours on IV antibiotics/podiatry follow-up for possible amputation right big toe for underlying osteomyelitis. Stable hemodynamics/labs. 10/06-patient status post debridement by Dr. Thompson. Wound care recommends follow-up outpatient with Dr. Whittington on 10/07 along with GI follow-up for management of cirrhosis and hematology follow-up for evaluation of coagulopathy/thrombocytopenia. He also recommends outpatient ID consult with Dr. Glover. Patient discharging on clindamycin/ levofloxacin per recommendations from wound care with outpatient follow-up with ID podiatry considers conservative management rather than amputation of osteomyelitis big toe. Date of admission: 10/03/20 20:47 Discharge date: 10/06/20 Primary care physician: LINDSAY Olvera Consults: 10/03/20 Consult to Physician [CONS] Stat Comment: Consulting Provider: Johnny Pena Reason For Exam: Physician to Consult Consult to Physician [CONS] Stat Comment: Consulting Provider: Chidi Montemayor Reason For Exam: Physician to Consult Consult to Physician [CONS] Urgent Comment: Consulting Provider: Angel Thompson Reason For Exam: Physician to Consult 10/03/20 20:48 Consult to Physician [CONS] Stat Comment: Consulting Provider: Angel Thompson Reason For Exam: Physician to Consult Consult to Physician [CONS] Urgent Comment: Consulting Provider: Chidi Montemayor Reason For Exam: Physician to Consult Discharge Meds Discharge Medications Home Medications Accu-Chek 1 each FS ACHS strip 02/23/20 [Rx Confirmed 10/03/20 Last Taken 10/02/20 21:00] acetaminophen-codeine 1 tab PO Q4 PRN 03/10/20 [History Confirmed 10/03/20 Last Taken 09/27/20] Lantus Solostar U-100 Insulin 70 unit SUBCUT BID 04/29/20 [History Confirmed 10/03/20 Last Taken 10/02/20 21:00] methocarbamol 750 mg PO HS 04/29/20 [History Confirmed 10/03/20 Last Taken 10/02/20 21:00] diphenhydramine-acetaminophen [Tylenol PM Extra Strength] 2 tab PO HS PRN 10/03/20 [History Confirmed 10/03/20 Last Taken 10/02/20 23:55] insulin lispro [Humalog U-100 Insulin] 1 - 50 sliding scale dose SUBCUT ACHS 10/03/20 [History Confirmed 10/03/20 Last Taken 10/02/20 21:00] clindamycin HCl 300 mg PO Q8 #21 cap 10/06/20 [Rx Last Taken Unknown] levofloxacin 750 mg PO Q48H #3 tab 10/06/20 [Rx Last Taken Unknown] COURSE Hospital Course Hospital course: . Discharge diagnosis: . Time Spent with Patient Time attestation: Total time spent providing and/or coordinating discharge services: EXAM Constitutional Vitals: Temp Pulse Resp BP Pulse Ox 98.2 F 89 20 137/82 98 10/06/20 08:14 10/06/20 08:14 10/06/20 08:14 10/06/20 08:14 10/06/20 08:14 Discharge Data Data Completed and Pending Labs on day of discharge: Labs from last 24 hours 10/06/20 10/06/20 10/05/20 05:43 05:43 08:12 WBC 3.4 L RBC 3.04 L Hgb 10.7 L Hct 31.1 L MCV 102.3 H MCH 35.2 H MCHC 34.4 RDW 14.7 H Plt Count 62 L MPV 11.0 H Neut % (Auto) 55.0 Lymph % (Auto) 32.1 [place] % (Auto) 8.2 Eos % (Auto) 4.4 Baso % (Auto) 0.3 Lymph # (Auto) 1.10 L [place] # (Auto) 0.28 Eos # (Auto) 0.15 Baso # (Auto) 0.01 Absolute Neutrophils 1.89 Sodium 137 Potassium 3.7 Chloride 105 Carbon Dioxide 27 Anion Gap 5.0 L BUN 8 Creatinine 0.5 L GFR Calculation 125 Glucose 91 Uric Acid 2.8 Calcium 8.7 Phosphorus 4.0 Magnesium 1.7 Total Bilirubin 1.5 H Direct Bilirubin 0.6 H GGT 94 H AST 32 ALT 10 Alkaline Phosphatase 77 Lactate Dehydrogenase 264 H Total Protein 7.1 Albumin 2.8 L Globulin 4.3 H Albumin/Globulin Ratio 0.7 L Triglycerides 76 Vancomycin Trough 7.8 Preliminary micro results at discharge 10/05/20 12:53 Gram Stain - Preliminary Foot - Right Tissue Culture - Preliminary Discharge Plan Patient/Caregiver Discharge Instructions Activity: increase activity as tolerated Diet: Consistent Carbohydrate Activity Restrictions/Additional Instructions: Follow-up rakesh Whittington on 10/07 for evaluation of osteomyelitis big toe Continue antibiotic until follow-up with podiatry Follow-up with GI as outpatient for management of cirrhosis ID follow-up for antibiotic selection if podiatry chooses to manage osteomyelitis conservatively(would not need long-term antibiotics if undergoes amputation) Continue dressing changes as per wound care recommendations Prescriptions: New clindamycin HCl 300 MG capsule 300 mg PO Q8 Qty: 21 RF: 0 levofloxacin [levofloxacin] 750 MG tablet 750 mg PO Q48H Qty: 3 RF: 0 Continued Accu-Chek 1 EACH strip 1 each FS ACHS RF: 0 acetaminophen-codeine 1 TAB tablet 1 tab PO Q4 PRN (Reason: Pain) RF: 0 methocarbamol 750 mg tablet 750 mg PO HS RF: 0 Lantus Solostar U-100 Insulin 100 unit/mL (3 mL) insulin pen 70 unit SUBCUT BID RF: 0 diphenhydramine-acetaminophen [Tylenol PM Extra Strength] 25-500 mg Tablet 2 tab PO HS PRN (Reason: Sleep) RF: 0 insulin lispro [Humalog U-100 Insulin] 100 unit/mL solution 1 - 50 sliding scale dose subcut ACHS RF: 0 Follow Up Plan Follow up with: Breezy Griffith ARNP [Primary Care Provider] - Patient Disposition: Home, Self-Care Prognosis: Fair Rehab Potential: Good I certify that the patient requires SNF services: No Overall status at discharge: patient is progressing back to baseline Discharge Orders: Discharge Order (Routine); Ordered 10/06/20 Ordered By: Johnny BAKER VTE Deep Vein Thrombosis/Pulmonary Embolism Present on Admission: No
[2020-10-06] MEDS: INSULIN GLARGINE, HUMAN 1 UNIT/0.01 ML SQ SCH (10:33)
[2020-10-06] MEDS: VANCOMYCIN 1,500 MG in 0.9 % SODIUM CHLORIDE 500 ML IV SCH (10:33)
--- NOTE | 2020-10-07 07:42 | Operative Note ---
DATE OF OPERATION: 10/05/2020 PREOPERATIVE DIAGNOSES: 1. Open wound, right great toe, medial aspect distal phalanx. 2. Mycotic toenail, deformed. POSTOPERATIVE DIAGNOSES: 1. Open wound, right great toe, medial aspect distal phalanx. 2. Mycotic toenail, deformed. PROCEDURES: 1. Bedside partial debridement of toenail. 2. Bedside debridement of the wound and tissue sample for culture and sensitivity. ANESTHESIA: None. I carried out these procedures at the bedside with the help of Ching Minor RN. FINDINGS: 1. Wound dimensions: 3 x 4 mm with a depth of 2 mm. There is undermining of [address] around. Wound base is made of granulation tissue. 2. The medial half of the toenail is brittle, and impacted with fungus debris. PROCEDURE IN DETAIL: After obtaining informed consent, I carried out this at the bedside. The toe was cleaned, prepped and draped in the standard fashion. Using pickup and scissors, the part of the devitalized toenail was excised and the wound base was cleaned with Betadine swab. Attention was now turned to the open wound. The skin edges were carefully excised and debrided. I used a #5 sharp curet. Wound base was curetted and sample obtained for culture and sensitivity. Hemostasis was achieved with pressure. Dressings consisted of bacitracin ointment, gauze, Kerlix bandage. BLOOD LOSS: 1 mL. INSTRUMENT COUNT: Count of swabs, instruments reportedly correct. VD:isabella Job ID: [id number] Doc ID: [id number] Angel Thompson MD
== END 2020-10-06 13:35 | disposition home or self-care (01) | DRG 623 ==
LOC: SUPCPDRO → ED 13:50 → MEDSUR 20:47
PROVIDERS: ADMIT Internal Medicine; ATTEND Internal Medicine

== ENCOUNTER 2020-12-16 15:48 | Inpatient (IN) ==
[2020-12-16] MEDS ORDERED: IOPAMIDOL 100 ML BOTTLE IV ONE (15:49)
[2020-12-16] MEDS ORDERED: 0.9 % SODIUM CHLORIDE 1,000 ML IV ONE ×2 (16:57→17:03)
[2020-12-16] MEDS ORDERED: HYDROmorphone 0.5 MG/0.5 ML SYRINGE IV PRN (17:09)
[2020-12-16] MEDS ORDERED: CEFEPIME 2 GM VIAL IV ONE (17:12)
[2020-12-16] MEDS ORDERED: VANCOMYCIN 2,000 MG in 0.9 % SODIUM CHLORIDE 500 ML IV ONE (17:12)
--- NOTE | 2020-12-16 17:21 | Emergency Department Note ---
HPI General Chief complaint: Bleeding Other Stated complaint: bleeding from LLL amputation Time Seen by Provider: 12/16/20 16:13 Source: patient and EMS Mode of arrival: wheelchair Limitations: no limitations History of Present Illness HPI Narrative: This is a 50-year-old poorly controlled diabetic male patient with a history of initial below the knee amputation in 01/[address] Mitchell complicated by postoperative infection and sepsis with transfer to [facility] on 08/06/2020 where he underwent an I&D and revision of an infected left BKA stump with Dr. Juanjose Flor. Wound cultures from that time showed beta-hemolytic strep and staph aureus. He was treated with multiple antibiotics during that admission including vancomycin and cefepime, as well as IV cefazolin, but was switched to oral Keflex upon discharge. Since that time he has been struggling with wound healing. About a week ago he started having increasing phantom leg pain, and then 3 days ago started having true stump pain. This morning his changed his dressing and there was significant oozing blood from the wound. In addition, he has had fevers over the last few days with associated chills. He also has a infection to the great toe of his right foot. He has been seeing infectious disease for this. He is on chronic minocycline therapies. He also carries a history of thrombocytopenia secondary to nonalcoholic fatty liver disease and liver cirrhosis Related Data Home Medications Medication Instructions Recorded Confirmed acetaminophen-codeine 1 tab PO Q4 PRN 03/10/20 10/03/20 Lantus Solostar U-100 Insulin 70 unit SUBCUT BID 04/29/20 10/03/20 methocarbamol 750 mg PO HS 04/29/20 10/03/20 diphenhydramine-acetaminophen 2 tab PO HS PRN 10/03/20 10/03/20 [Tylenol PM Extra Strength] insulin lispro [Humalog U-100 1 - 50 sliding scale dose SUBCUT 10/03/20 10/03/20 Insulin] ACHS hydrochlorothiazide 12.5 mg PO DAILY 12/16/20 12/16/20 minocycline 100 mg PO BID 12/16/20 12/16/20 ropinirole 2 mg PO HS 12/16/20 12/16/20 sertraline 25 mg PO DAILY 12/16/20 12/16/20 Previous Rx's Medication Instructions Recorded Accu-Chek 1 each FS ACHS strip 02/23/20 Allergies Allergy/AdvReac Type Severity Reaction Status Date / Time Amoxicillin Allergy Mild Hives Verified 08/05/20 19:33 ampicillin Allergy Mild Hives Verified 08/05/20 19:33 latex Allergy Mild Rash Verified 08/05/20 19:33 egg AdvReac Mild Nausea Verified 08/05/20 19:33 Review of Systems ROS ROS Narrative: Narrative: All systems ED: reviewed and negative except as stated. [facility] Narrative Patient History Narrative: Narrative: Medical/Surgical/Family History All Active Problems (Updated 12/16/20 @ 21:35 by Gia Adan PA-C) Cellulitis and abscess of left lower extremity (Acute) Thrombocytopenia (Acute) Rash (Acute) History of below-knee amputation of left lower extremity (Acute) Hyponatremia (Acute) Fever (Acute) Sinus tachycardia (Acute) Cellulitis of great toe of right foot (Acute) Diabetic foot ulcer (Acute) Osteomyelitis of great toe of right foot (Acute) Anemia, macrocytic (Acute) Deep postoperative wound infection (Acute) Cellulitis (Acute) Hyponatremia (Acute) Hyperglycemia (Acute) Self-care deficit for hygiene (Acute) Stomach ulcer (Chronic) Migraines (Chronic) Liver disease (Chronic) Joint pain (Chronic) Insomnia (Chronic) High blood pressure (Chronic) Type 2 diabetes mellitus (Chronic) Depression (Chronic) Daytime sleepiness (Chronic) Muscle pain (Chronic) Asthma (Chronic) Anxiety (Chronic) Acid reflux (Chronic) Chronic back pain (Chronic) Obesity (Chronic) Restless leg syndrome (Chronic) Diabetic neuropathy (Chronic) Skin fissure (Chronic) Callus of foot (Chronic) Onychomycosis (Chronic) Erectile dysfunction (Chronic) BPH (benign prostatic hyperplasia) (Chronic) 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 Restless leg syndrome (Chronic) Scrotal abscess (Resolved) Sepsis syndrome (Inactive) Skin fissure (Chronic) Stomach ulcer (Chronic) Thrombocytopenia 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) CT evidence of cirrhosis and probable hyperspenism Type 2 diabetes mellitus (Chronic) Surgical History History of hand surgery (Chronic) Left hand History of incision and drainage (Chronic) 10/31/2019-I & D of right lateral chest wall abscess Family History Mother Hypertension Diabetes Arthritis Stroke Social History Smoking Status: Never smoker Alcohol Intake Frequency: holiday/special occasion only Substance Use: does not use Exam Narrative Narrative: General: AOx3, NAD, nontoxic appearing. Pleasant and conversant. HEENT: PERRLA, EOMI, normocephalic. Moist mucous membranes. Normal facies and normal dentition. Chest: Symmetric Respiratory: Lungs clear to auscultation anteriorly bilaterally. No respiratory distress. Unlabored breathing. Heart: Tachycardia, no murmurs/clicks/rubs. Abdomen: Non-tender, Non distended Extremities: Warm and well perfused. Right lower extremity without edema. No rashes or lesions. Left lower extremity: Below the knee amputation. There is a 2 cm diameter opening noted to the medial aspect of a well-healed incision. The tissue is friable. There is a fluctuant pocket deep to this area, and when probed measures approximately 5 x 6 x 5 cm along the anterior aspect of the stump. There is cellulitis noted to the medial aspect of the thigh that tracks up toward the groin. No involvement of the perineum. From the opening to the wound there is active bleeding which is mild. Hemostasis is easily achieved with compression. Neuro: No focal deficits. Cranial nerves II-XII normal. Skin: Warm dry, no rashes or lesions, no cyanosis. Psych: Normal mood and affect Heme/Lymph: No bruising General Limitations: no limitations Course Course Course Narrative: 50-year-old poorly controlled diabetic male with below the knee amputation I&D and revision on 08/07/2021 at [facility] with Dr. Flor presents with postoperative wound complication and cellulitis. Reevaluation(s) Reevaluation #1: Basic labs including a CBC with manual differential, CRP, procalcitonin, blood cultures x2, lactic acid Wound exploration and wound packing. IV fluids Give cefepime and vancomycin for broad-spectrum coverage CT scan with contrast to evaluate for sinus tracts and osteomyelitis Call placed to Dr. Plunkett, orthopedics Reevaluation #2: CBC without leukocytosis; however, he does have an elevated neutrophil count. CRP is elevated as well as procalcitonin which is 0.55. Lactic acid is within normal limits. CT scan shows no evidence of osteomyelitis, there is a large abscess pocket with associated cellulitis, which was discussed with radiology via telephone. The read is still pending. Dr. Plunkett has agreed to consult on the patient with hospitalist service admitting. I have placed a call to Dr. Kraus for admission for infected BKA with associated cellulitis and SIRS response requiring IV antibiotic therapies and likely BKA revision. Vital Signs Vital signs: Vital Signs Temperature 100.0 F H 12/16/20 15:50 Pulse Rate 101 H 12/16/20 15:50 Respiratory Rate 24 H 12/16/20 15:50 Blood Pressure 108/55 12/16/20 15:50 Pulse Oximetry (%) 97 12/16/20 15:50 Temperature 99.3 F H 12/16/20 18:37 Pulse Rate 95 H 12/16/20 19:25 Respiratory Rate 18 12/16/20 18:20 Blood Pressure 126/59 12/16/20 19:25 Pulse Oximetry (%) 100 12/16/20 19:25 [facility] MDM Narrative Medical decision making narrative: Infected left below the knee amputation Wound complication with dehiscence and active bleeding Cellulitis SIRS/sepsis Patient will need admission for ongoing IV antibiotic therapies and likely below the knee amputation revision. The hospitalist service will be admitting and Dr. Plunkett has been informed of the admission and will consult. Lab Data Result diagrams: 12/16/20 16:55 12/16/20 16:55 Labs: Lab Results 12/16/20 12/16/20 12/16/20 Range/Units 16:55 16:55 16:55 WBC (4.5-11.0) K/mcL RBC (4.50-5.90) M/mcL Hgb (13.5-16.5) g/dL Hct (41.0-55.0) % MCV (80.0-100.0) fL MCH (26.0-34.0) pg MCHC (31.0-36.0) g/dL RDW (11.5-14.5) % Plt Count (140-440) K/mcL MPV (7.4-10.4) fL Seg Neutrophils % (38-78) % Band Neutrophils % Lymphocytes % (15-49) % Monocytes % (Manual) (1-12) % Eosinophils % (Manual) Basophils % (Manual) Metamyelocytes % Myelocytes % Promyelocytes % Nucleated RBCs WBC Morphology Vacuolated Neuts Plasmacytoid Lymphs Reactive Lymphocytes (0-2) % Blast Cells Plasma Cells Other Cell Type Toxic Granulation Dohle Bodies Platelet Estimate (Normal) RBC Morphology (Normal) Polychromasia (None Seen) Hypochromasia Poikilocytosis Basophilic Stippling Anisocytosis Microcytosis Macrocytosis (None Seen) Spherocytes Pappenheimer Bodies Target Cells Tear Drop Cells Ovalocytes Stomatocytes Helmet Cells [place] Bodies Suleman Cells Acanthocytes (Spur) RBC Fragments PT (11.9-14.5) sec INR (0.9-1.1) VBG Lactic Acid 1.9 (0.5-2.0) mmol/L Sodium 132 L (133-145) mmol/L Potassium 3.6 (3.3-5.1) mmol/L Chloride 100 (96-108) mmol/L Carbon Dioxide 23 (22-30) mmol/L Anion Gap 9.0 (8.0-16.0) BUN 10 (6-20) mg/dL Creatinine 0.8 (0.7-1.2) mg/dL GFR Calculation 103 Glucose 242 H (70-105) mg/dL Calcium 7.7 L (8.6-10.4) mg/dL Total Bilirubin 3.3 H (0.1-1.0) mg/dL AST 35 (<40) U/L ALT 11 (<40) U/L Alkaline Phosphatase 82 (39-117) U/L C-Reactive Protein 11.10 H (0.03-0.80) mg/dL Total Protein 7.2 (5.9-8.4) gm/dL Albumin 2.5 L (3.2-5.2) gm/dL Globulin 4.7 H (2.2-3.7) gm/dL Albumin/Globulin Ratio 0.5 L (1.0-2.3) Procalcitonin 0.55 H (<0.10) ng/mL 12/16/20 12/16/20 12/16/20 Range/Units 16:55 16:55 16:55 WBC 5.6 (4.5-11.0) K/mcL RBC 3.05 L (4.50-5.90) M/mcL Hgb 10.4 L (13.5-16.5) g/dL Hct 30.6 L (41.0-55.0) % MCV 100.3 H (80.0-100.0) fL MCH 34.1 H (26.0-34.0) pg MCHC 34.0 (31.0-36.0) g/dL RDW 13.3 (11.5-14.5) % Plt Count 63 L (140-440) K/mcL MPV 11.3 H (7.4-10.4) fL Seg Neutrophils % 80 H TNP (38-78) % Band Neutrophils % TNP Lymphocytes % 12 L TNP (15-49) % Monocytes % (Manual) 7 TNP (1-12) % Eosinophils % (Manual) TNP Basophils % (Manual) TNP Metamyelocytes % TNP Myelocytes % TNP Promyelocytes % TNP Nucleated RBCs TNP WBC Morphology TNP Vacuolated Neuts TNP Plasmacytoid Lymphs TNP Reactive Lymphocytes 1 TNP (0-2) % Blast Cells TNP Plasma Cells TNP Other Cell Type TNP Toxic Granulation TNP Dohle Bodies TNP Platelet Estimate Decreased A TNP (Normal) RBC Morphology Abnormal A TNP (Normal) Polychromasia 1+ A TNP (None Seen) Hypochromasia TNP Poikilocytosis TNP Basophilic Stippling TNP Anisocytosis TNP Microcytosis TNP Macrocytosis 1+ A TNP (None Seen) Spherocytes TNP Pappenheimer Bodies TNP Target Cells TNP Tear Drop Cells TNP Ovalocytes TNP Stomatocytes TNP Helmet Cells TNP [place] Bodies TNP Suleman Cells TNP Acanthocytes (Spur) TNP RBC Fragments TNP PT 16.6 H (11.9-14.5) sec INR 1.3 H (0.9-1.1) VBG Lactic Acid (0.5-2.0) mmol/L Sodium (133-145) mmol/L Potassium (3.3-5.1) mmol/L Chloride (96-108) mmol/L Carbon Dioxide (22-30) mmol/L Anion Gap (8.0-16.0) BUN (6-20) mg/dL Creatinine (0.7-1.2) mg/dL GFR Calculation Glucose (70-105) mg/dL Calcium (8.6-10.4) mg/dL Total Bilirubin (0.1-1.0) mg/dL AST (<40) U/L ALT (<40) U/L Alkaline Phosphatase (39-117) U/L C-Reactive Protein (0.03-0.80) mg/dL Total Protein (5.9-8.4) gm/dL Albumin (3.2-5.2) gm/dL Globulin (2.2-3.7) gm/dL Albumin/Globulin Ratio (1.0-2.3) Procalcitonin (<0.10) ng/mL ED POC Tests ED POC Tests: GEE - Influenza A Negative GEE - Influenza B Negative GEE - SARS Antigen Negative Discharge Plan Patient/Caregiver Discharge Instructions Pt seen by [facility]/PA only: Yes Clinical Impression: Insulin dependent diabetes mellitus with complications, Deep postoperative wound infection, Cellulitis Patient Disposition: Xfer As Inpt ([facility]) Condition: Fair Discharge Date/Time: 12/16/20 21:20
[2020-12-16 17:28] LABS: Hematocrit 30.6 % (41.0-55.0); Hemoglobin 10.4 g/dL (13.5-16.5); Mean Cell Volume 100.3 fL (80.0-100.0); Mean Platelet Volume 11.3 fL (7.4-10.4); Platelet Count 63 K/mcL (140-440); RBC 3.05 M/mcL (4.50-5.90); Red Cell Distribution Width 13.3 % (11.5-14.5); WBC 5.6 K/mcL (4.5-11.0)
[2020-12-16 17:49] LABS: ALT/SGPT 11 U/L (<40); AST/SGOT 35 U/L (<40); Albumin 2.5 gm/dL (3.2-5.2); Albumin/Globulin Ratio 0.5 (1.0-2.3); Alkaline Phosphatase 82 U/L (39-117); Bilirubin,Total 3.3 mg/dL (0.1-1.0); Blood Urea Nitrogen 10 mg/dL (6-20); Calcium 7.7 mg/dL (8.6-10.4); Carbon Dioxide 23 mmol/L (22-30); Chloride 100 mmol/L (96-108); Globulin 4.7 gm/dL (2.2-3.7); Glomerular Filtration Rate 103; Glucose 242 mg/dL (70-105)
[2020-12-16 17:56] LABS: Lymphocytes % 12 % (15-49); Macrocytosis 1+ (None Seen); Monocytes % (Manual) 7 % (1-12); Platelet Estimate DECREASED (Normal); Polychromasia 1+ (None Seen); RBC Morphology ABNORMAL (Normal); Reactive Lymphocytes 1 % (0-2); Segmented Neutrophils % 80 % (38-78)
--- NOTE | 2020-12-16 20:47 | Internal Med History&Physical ---
HPI History of Present Illness Patient information: Note initiated : 12/16/20 at 8:37 pm Service Date, if different from initiated Date: [] Patient: Tarun Molina a 50 y/o M admitted on for bleeding from LLL amputation. Chief Complaint: [] History of present illness: Mr. Molina is a 50 year old M Presents the ED with a left stump bleeding. 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 Patient states that the other day his was draining a serosanguineous fluid in his son that from time to time to do it necessary surprised him however today he started losing blood with some blood clots. He says he developed increased redness and tenderness to that leg as well. Says he had a fever several days ago but that broke. He had one episode of diarrhea yesterday and that resolved. He has a chronic dry cough which is high for months. No other pains or complaints. He has been following with Dr. Glover for the right great toe infection for which she is on minocycline for about a 6-month regimen it sounds like. 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 Last wound cultures we have of him are of the right foot which grew MSSA as well as some gram coag negative's Review of Systems: Pertinent positives as above plus headache. Denies chills/nausea/vomiting/chest or abdominal pain/dyspnea. Many 10 point review of system reviewed negative. PFSH PFSH All Active Problems Cellulitis and abscess of left lower extremity (Acute) Thrombocytopenia (Acute) Rash (Acute) History of below-knee amputation of left lower extremity (Acute) Hyponatremia (Acute) Fever (Acute) Sinus tachycardia (Acute) Cellulitis of great toe of right foot (Acute) Diabetic foot ulcer (Acute) Osteomyelitis of great toe of right foot (Acute) Anemia, macrocytic (Acute) Hyponatremia (Acute) Hyperglycemia (Acute) Self-care deficit for hygiene (Acute) Stomach ulcer (Chronic) Migraines (Chronic) Liver disease (Chronic) Joint pain (Chronic) Insomnia (Chronic) High blood pressure (Chronic) Type 2 diabetes mellitus (Chronic) Depression (Chronic) Daytime sleepiness (Chronic) Muscle pain (Chronic) Asthma (Chronic) Anxiety (Chronic) Acid reflux (Chronic) Chronic back pain (Chronic) Obesity (Chronic) Restless leg syndrome (Chronic) Diabetic neuropathy (Chronic) Skin fissure (Chronic) Callus of foot (Chronic) Onychomycosis (Chronic) Erectile dysfunction (Chronic) BPH (benign prostatic hyperplasia) (Chronic) 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 Restless leg syndrome (Chronic) Scrotal abscess (Resolved) Sepsis syndrome (Inactive) Skin fissure (Chronic) Stomach ulcer (Chronic) Thrombocytopenia 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) CT evidence of cirrhosis and probable hyperspenism Type 2 diabetes mellitus (Chronic) Surgical History History of hand surgery (Chronic) Left hand History of incision and drainage (Chronic) 10/31/2019-I & D of right lateral chest wall abscess Family History Mother Hypertension Diabetes Arthritis Stroke Social History marital status: single occupational status: employed smoking status: Never smoker alcohol intake frequency: holiday/special occasion only substance use type: does not use MEDS/ALLERGIES Home Medications and Allergies Home Medications Medication Instructions Recorded Confirmed Type Accu-Chek 1 each FS ACHS strip 02/23/20 10/03/20 Rx acetaminophen-codeine 1 tab PO Q4 PRN 03/10/20 10/03/20 History Lantus Solostar U-100 Insulin 70 unit SUBCUT BID 04/29/20 10/03/20 History methocarbamol 750 mg PO HS 04/29/20 10/03/20 History diphenhydramine-acetaminophen 2 tab PO HS PRN 10/03/20 10/03/20 History [Tylenol PM Extra Strength] insulin lispro [Humalog U-100 1 - 50 sliding scale dose SUBCUT 10/03/20 10/03/20 History Insulin] ACHS clindamycin HCl 300 mg PO Q8 #21 cap 10/06/20 Rx levofloxacin 750 mg PO Q48H #3 tab 10/06/20 Rx Allergies Allergy/AdvReac Type Severity Reaction Status Date / Time Amoxicillin Allergy Mild Hives Verified 08/05/20 19:33 ampicillin Allergy Mild Hives Verified 08/05/20 19:33 latex Allergy Mild Rash Verified 08/05/20 19:33 egg AdvReac Mild Nausea Verified 08/05/20 19:33 EXAM Constitutional Vitals: Temp Pulse Resp BP Pulse Ox 99.3 F H 95 H 18 126/59 100 12/16/20 18:37 12/16/20 19:25 12/16/20 18:20 12/16/20 19:25 12/16/20 19:25 Exam: General: Alert, Awake, No acute Distress, obese Eyes/N/T: EOMI, PERRL, Head/Neck: neck supple, normocephalic atraumatic CV: RRR, No murmurs, normal s1/s2 Pulm: Clear b/l, no wheezing/rhonchi/rales Abd: soft, nontender, +BS x4 Ext: no clubbing/cyanosis/edema to RLE. LLE BKA with dressing in place, inner thigh erythematous/tender to touch Neuro: Alert, no focal deficits, moves all extremities, CN 2-12 grossly intact, decreased sensations b/l LE chronic Skin: warm/dry DATA Data Completed and Pending Labs: Labs from last 24 hours 12/16/20 12/16/20 12/16/20 16:55 16:55 16:55 WBC 5.6 RBC 3.05 L Hgb 10.4 L Hct 30.6 L MCV 100.3 H MCH 34.1 H MCHC 34.0 RDW 13.3 Plt Count 63 L MPV 11.3 H Seg Neutrophils % 80 H Lymphocytes % 12 L Monocytes % (Manual) 7 Reactive Lymphocytes 1 Platelet Estimate Decreased A RBC Morphology Abnormal A Polychromasia 1+ A Macrocytosis 1+ A VBG Lactic Acid 1.9 Sodium Potassium Chloride Carbon Dioxide Anion Gap BUN Creatinine GFR Calculation Glucose Calcium Total Bilirubin AST ALT Alkaline Phosphatase C-Reactive Protein Total Protein Albumin Globulin Albumin/Globulin Ratio Procalcitonin 0.55 H 12/16/20 16:55 WBC RBC Hgb Hct MCV MCH MCHC RDW Plt Count MPV Seg Neutrophils % Lymphocytes % Monocytes % (Manual) Reactive Lymphocytes Platelet Estimate RBC Morphology Polychromasia Macrocytosis VBG Lactic Acid Sodium 132 L Potassium 3.6 Chloride 100 Carbon Dioxide 23 Anion Gap 9.0 BUN 10 Creatinine 0.8 GFR Calculation 103 Glucose 242 H Calcium 7.7 L Total Bilirubin 3.3 H AST 35 ALT 11 Alkaline Phosphatase 82 C-Reactive Protein 11.10 H Total Protein 7.2 Albumin 2.5 L Globulin 4.7 H Albumin/Globulin Ratio 0.5 L Procalcitonin A/P Narrative A/P Narrative: Assessment: *Left BKA stump cellulitis w/Abscess & bleeding: *Right great toe osteomyelitis: Being treated with extended course of minocycline by Dr. Glover -Also following with Dr. Whittington *Mild Hyponatremia: corrected is 134 on admit. is on HCTZ *Cirrhosis w/thrombocytopenia: has had extensive w/u to determine etiology in past but likely etoh -Was on Lasix/Aldactone but says those stopped working and so he is on hydrochlorothiazide *Anemia, chronic: *Obesity: Plan: -cefepime, pending WC/BC -Dr. Plunkett consulted -wound care -basal and SSI -hold hctz for now -pt/ot -ppx: right leg scd, hold chemical for bleeding stump full code Time Spent With Patient Time: Total time spent is greater than 50% in coordination of care (as documented) at patient's floor/unit and/or counseling patient:
[2020-12-16 21:15] LABS: INR 1.3 (0.9-1.1); Prothrombin Time 16.6 sec (11.9-14.5)
[2020-12-16] MEDS ORDERED: POLYETHYLENE GLYCOL 3350 17 GM PACKET PO PRN (21:22)
[2020-12-16] MEDS ORDERED: ACETAMINOPHEN 325 MG TABLET PO PRN (21:22)
[2020-12-16] MEDS ORDERED: IPRATROPIUM/ALBUTEROL 3 ML AMPUL.NEB NEB PRN (21:22)
[2020-12-16] MEDS ORDERED: HYDROcodone/APAP 5/325MG TABLET PO PRN (21:22)
[2020-12-16] MEDS ORDERED: MAGNESIUM SULFATE 2 GM/50 ML BAG IV PRN (21:22)
[2020-12-16] MEDS ORDERED: DEXTROSE 31 GM ORAL.SUSP PO PRN (21:22)
[2020-12-16] MEDS ORDERED: POTASSIUM CHLORIDE 40 MEQ in DEXTROSE 5% IN WATER 500 ML IV PRN (21:22)
[2020-12-16] MEDS ORDERED: POTASSIUM CHLORIDE 20 MEQ TABLET PO PRN ×2 (21:22)
[2020-12-16] MEDS ORDERED: DEXTROSE 50% 50 ML VIAL IV PRN (21:22)
[2020-12-16] MEDS ORDERED: SENNOSIDES 1 TABLET PO PRN (21:22)
[2020-12-16] MEDS: DOCUSATE SODIUM 100 MG CAPSULE PO SCH (22:47)
[2020-12-16] MEDS: 0.9 % SODIUM CHLORIDE 10 ML SYRINGE IV SCH (22:48)
[2020-12-16] MEDS: LACTOBACILLUS 1 CAPSULE PO SCH (23:26)
[2020-12-16] MEDS: INSULIN LISPRO 1 UNIT/0.01 ML UNIT SQ SCH (23:26)
[2020-12-17] MEDS: 0.9 % SODIUM CHLORIDE 10 ML SYRINGE IV SCH ×4 (05:10→21:03)
--- NOTE | 2020-12-17 05:52 | Cat Scan Report ---
CLINICAL INFORMATION: infected BKA stump COMPARISON: MRI 08/06/[address] 08/05/2020 TECHNIQUE 90 cc of [id number] were injected intravenously and 0.625 helical slices were obtained from the mid ileum through the proximal tibia fibular stump. Following reconstruction, 2.5 m sagittal, coronal and axial reformatted images were processed and reviewed at bone and soft tissue windows. Radiation exposure is limited using dose reduction technology. FINDINGS: Bone windows show a sharp surgically created demarcation of the tibial stump without evidence of erosion to suggest secondary osteomyelitis. There is no evidence of Emeka's abscess. There is identical to 08/05/2020 CT. A small focal erosion in the posterior fibular cortex diaphyseal stump is identical to the previous exam and presumably postsurgical. Diffuse osteoporosis is seen in the periarticular region of the tibiofemoral and hip joints. Small effusions in the patellofemoral and tibiofemoral joints are unchanged.. Soft tissue windows show a a 7 x 2.5 cm abscess in subcutaneous fat over the anterior distal stump. It contains moderate amount of gas. This is increased in size from the previous exam: At that time it was only 4 cm. Extensive cellulitis in the subcutaneous fat throughout the entire thigh and stump shows modest increase. There is also moderate focal fasciitis the residual anterior compartment of the stump. This shows only modest progression from previous exam. IMPRESSION: 1. No CT evidence of osteomyelitis. 2. 7 x 2.5 cm abscess in subcutaneous fat over the anterior distal stump has increased in size prior CT. This contains a moderate amount of gas. Moderate cellulitis throughout the thigh and focal fasciitis the anterior compartment of the residual calf which shows only modest progression from previous exam. Interpreted and Authenticated by: Karthikeyan Dia 12/17/20
[2020-12-17 07:00] LABS: Basophils # (Auto) 0.01 K/mcL (0.00-0.20); Basophils % (Auto) 0.2 % (0.0-2.0); Eosinophils # (Auto) 0.12 K/mcL (0.00-0.70); Eosinophils % (Auto) 2.7 % (0.0-7.0); Hematocrit 28.4 % (41.0-55.0); Hemoglobin 9.7 g/dL (13.5-16.5); Lymphocytes # (Auto) 0.84 K/mcL (1.50-4.80); Lymphocytes % (Auto) 18.8 % (15.0-49.0); Mean Cell Volume 101.8 fL (80.0-100.0); Mean Corpuscular HGB Conc 34.2 g/dL (31.0-36.0); Mean Platelet Volume 11.8 fL (7.4-10.4); Monocytes # (Auto) 0.33 K/mcL (0.10-0.90); Monocytes % (Auto) 7.4 % (1.0-12.0); Neutrophils % (Auto) 70.9 % (38.0-78.0); Platelet Count 62 K/mcL (140-440); RBC 2.79 M/mcL (4.50-5.90); Red Cell Distribution Width 13.3 % (11.5-14.5); WBC 4.5 K/mcL (4.5-11.0)
[2020-12-17] MEDS: DOCUSATE SODIUM 100 MG CAPSULE PO SCH ×2 (07:00→21:00)
[2020-12-17 07:07] LABS: ALT/SGPT 10 U/L (<40); AST/SGOT 35 U/L (<40); Albumin 2.2 gm/dL (3.2-5.2); Albumin/Globulin Ratio 0.5 (1.0-2.3); Alkaline Phosphatase 86 U/L (39-117); Bilirubin,Direct 1.6 mg/dL (<0.3); Bilirubin,Total 2.7 mg/dL (0.1-1.0); Blood Urea Nitrogen 8 mg/dL (6-20); Calcium 7.4 mg/dL (8.6-10.4); Carbon Dioxide 25 mmol/L (22-30); Chloride 100 mmol/L (96-108); Globulin 4.5 gm/dL (2.2-3.7); Glomerular Filtration Rate 116; Glucose 204 mg/dL (70-105); Lactate Dehydrogenase 238 U/L (135-225); Phosphorous 2.5 mg/dL (2.5-4.5); Triglycerides 108 mg/dL (<150); Uric Acid 2.4 mg/dL (2.5-8.0)
[2020-12-17] MEDS ORDERED: METOPROLOL TARTRATE 25 MG TABLET PO ONE (07:13)
--- NOTE | 2020-12-17 07:17 | Internal Med Progress Note ---
SUBJECTIVE Subjective Patient information: Note initiated : 12/17/20 at 7:11 am Service Date, if different from initiated Date: [] Patient: Tarun Molina a 50 y/o M admitted on 12/16/20 for bleeding from LLL amputation. Chief Complaint: [] Interval history: Mr. Molina is a 50 year old M Presents the ED with a left stump bleeding. 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 Patient states that the other day his was draining a serosanguineous fluid in his son that from time to time to do it necessary surprised him however today he started losing blood with some blood clots. He says he developed increased redness and tenderness to that leg as well. Says he had a fever several days ago but that broke. He had one episode of diarrhea yesterday and that resolved. He has a chronic dry cough which is high for months. No other pains or complaints. He has been following with Dr. Glover for the right great toe infection for which she is on minocycline for about a 6-month regimen it sounds like. 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 Last wound cultures we have of him are of the right foot which grew MSSA as well as some gram coag negative's 12/17 No overnight event or new complaints. No fever chills. Patient seen by surgery today and will undergo I&D today. Review of Systems: denies headache/fever/chills/nausea/vomiting/chest or abdominal pain/cough/dyspnea/diarrhea. Otherwise see above. Constitutional Vitals: Vital Signs Temp Pulse Resp BP Pulse Ox 98.5 F 93 H 16 119/69 95 12/17/20 04:08 12/17/20 04:08 12/17/20 04:08 12/17/20 04:08 12/17/20 04:08 Period Temp Pulse Resp BP Sys/Garcia Pulse Ox Last 24 Hr 98 F-100.0 F 87-104 16-24 108-139/55-78 95-100 Intake and Output 12/16/20 12/17/20 12/17/20 21:59 05:59 13:59 Intake Total 2500 200 Output Total 775 Balance 2500 -575 Weight 126.598 kg Intake & Output: Intake & Output 02/15/21 02/16/21 02/16/21 21:59 05:59 13:59 Intake Total 2500 200 Output Total 775 Balance 2500 -575 Weight 126.598 kg Intake: IV 2500 Sodium Chloride 0.9% 1,000 ml @ 2000 Wide Open IV BOLUS ONE Rx#: [id number] Vancomycin 2,000 mg In Sodium 500 Chloride 0.9% 500 ml @ 250 mls/ hr IV ONCE ONE Rx#:[id number] Oral 200 Output: Void Amount 775 Other: Meal Ice Cream (2) Percent of Meal Consumed 100% Feeding Ability Independent Urine Color Brown # Em[place] 0 Exam: General: Alert, Awake, No acute Distress, obese Eyes/N/T: EOMI, Head/Neck: neck supple, CV: RRR, No murmurs, Pulm: Clear b/l, no wheezing/rhonchi/rales Abd: soft, nontender, +BS x4 Ext: no clubbing/cyanosis/edema to RLE. LLE BKA with dressing in place, inner thigh erythematous/tender to touch Neuro: Alert, no focal deficits, moves all extremities, decreased sensations b/l LE chronic Skin: warm/dry OBJ DATA Labs CBC & Chem 7: 12/17/20 05:14 12/17/20 05:14 Labs: Abnormal Lab Results 12/17/20 12/17/20 12/16/20 05:14 05:14 16:55 RBC 2.79 L Hgb 9.7 L Hct 28.4 L MCV 101.8 H MCH 34.8 H Plt Count 62 L MPV 11.8 H Lymph # (Auto) 0.84 L Seg Neutrophils % Lymphocytes % Platelet Estimate RBC Morphology Polychromasia Macrocytosis PT 16.6 H INR 1.3 H Sodium Creatinine 0.6 L Glucose 204 H Uric Acid 2.4 L Calcium 7.4 L Total Bilirubin 2.7 H Direct Bilirubin 1.6 H Lactate Dehydrogenase 238 H C-Reactive Protein Albumin 2.2 L Globulin 4.5 H Albumin/Globulin Ratio 0.5 L Procalcitonin 12/16/20 12/16/20 12/16/20 16:55 16:55 16:55 RBC 3.05 L Hgb 10.4 L Hct 30.6 L MCV 100.3 H MCH 34.1 H Plt Count 63 L MPV 11.3 H Lymph # (Auto) Seg Neutrophils % 80 H Lymphocytes % 12 L Platelet Estimate Decreased A RBC Morphology Abnormal A Polychromasia 1+ A Macrocytosis 1+ A PT INR Sodium 132 L Creatinine Glucose 242 H Uric Acid Calcium 7.7 L Total Bilirubin 3.3 H Direct Bilirubin Lactate Dehydrogenase C-Reactive Protein 11.10 H Albumin 2.5 L Globulin 4.7 H Albumin/Globulin Ratio 0.5 L Procalcitonin 0.55 H Meds: Medications Acetaminophen (Tylenol) 650 mg PO Q6HP PRN PRN Reason: PAIN/FEVER > 101 Hydrocodone Bitart/Acetaminophen ([place] 5/325mg) 1 tab PO Q6HP PRN; Protocol PRN Reason: Per Pain Protocol Albuterol/Ipratropium (Duoneb) 3 ml NEB Q4HP PRN PRN Reason: Shortness Of Breath Cefepime HCl (Maxipime) 2 gm IV Q12H [facility]; Protocol Dextrose (Dextrose 50%) 0 ml IV UD PRN PRN Reason: Hypoglycemia Diagnostic Test (Pha) (Accu-Chek) [address] [facility] Last Admin: 12/17/20 07:00 Dose: 1 each Documented by: Docusate Sodium (Colace) 100 mg PO BID [facility] Last Admin: 12/17/20 07:00 Dose: Not Given Documented by: Glucose (Insta-Glucose) 15 gm PO PRN PRN PRN Reason: Hypoglycemia Potassium Chloride 40 meq/ (Dextrose) 520 mls @ 130 mls/hr IV UD PRN PRN Reason: Potassium < 3 Magnesium Sulfate (Magnesium Sulfate) 2 gm in 50 mls @ 50 mls/hr IV UD PRN PRN Reason: Magnesium </= 1.6 Insulin Human Lispro (Humalog) [address] [facility]; Protocol Last Admin: 12/16/20 23:26 Dose: Not Given Documented by: Lactobacillus Rhamnosus (Culturelle) 1 cap PO BID [facility] Last Admin: 12/16/20 23:26 Dose: Not Given Documented by: Ondansetron HCl (Zofran) 4 mg IV Q4HP PRN PRN Reason: Nausea And Vomiting Polyethylene Glycol (Miralax) 17 gm PO DAILYP PRN PRN Reason: Constipation Potassium Chloride (Kdur) 40 meq PO UD PRN PRN Reason: Potssium is 3-3.5 Potassium Chloride (Kdur) 40 meq PO UD PRN PRN Reason: Potassium < 3 Senna (Senokot) 2 tab PO DAILYP PRN PRN Reason: Constipation Sodium Chloride (Saline Flush) 10 ml IV Q8 [facility] Last Admin: 12/17/20 05:10 Dose: 10 ml Documented by: A/P Narrative A/P Narrative: Assessment: *Left BKA stump cellulitis w/Abscess/gas & Bleeding: *Right great toe osteomyelitis: Being treated with extended course of minocycline by Dr. Glover -Also following with Dr. Whittington *Mild Hyponatremia: corrected is 134 on admit. is on HCTZ -improved *Cirrhosis w/thrombocytopenia: has had extensive w/u to determine etiology in past but likely etoh -Was on Lasix/Aldactone but says those stopped working and so he is on hydrochlorothiazide -baseline plt ~60 *Anemia, chronic: *Obesity: Plan: -cefepime/clinda, pending WC/BC -Dr. Plunkett consulted for debridement -discuss with Dr. Glover -wound care -basal and SSI -hold hctz for now -pt/ot -ppx: right leg scd, hold chemical for bleeding stump full code Time Spent With Patient Time: Total time spent is greater than 50% in coordination of care (as documented) at patient's floor/unit and/or counseling patient: QUALITY Stroke Symptom Onset Unknown: No VTE Deep Vein Thrombosis/Pulmonary Embolism Present on Admission: No
[2020-12-17] MEDS: INSULIN LISPRO 1 UNIT/0.01 ML UNIT SQ SCH ×4 (07:56→21:03)
[2020-12-17] MEDS: LACTOBACILLUS 1 CAPSULE PO SCH ×2 (07:57→21:02)
[2020-12-17] MEDS: CLINDAMYCIN 600 MG in DEXTROSE 5% IN WATER 50 ML IV SCH ×3 (07:57→20:57)
[2020-12-17] MEDS: CEFEPIME 2 GM VIAL IV SCH ×2 (07:57→20:59)
[2020-12-17] MEDS ORDERED: ACETAMINOPHEN/DIPHENHYDRAMINE 1 TABLET PO PRN (08:20)
[2020-12-17] MEDS ORDERED: INSULIN GLARGINE, HUMAN 1 UNIT/0.01 ML SQ ONE (08:21)
[2020-12-17] MEDS: ATORVASTATIN 20 MG TABLET PO SCH (09:09)
[2020-12-17] MEDS: MINOCYCLINE 100 MG CAPSULE PO SCH ×2 (09:35→20:58)
--- NOTE | 2020-12-17 10:07 | History and Physical Report ---
DATE OF ADMISSION: 12/16/2020 CHIEF COMPLAINT: Wound breakdown, left below-knee amputation. HISTORY: This is a gentleman who has had a complicated problem with infection of his feet and ultimately had a below-knee amputation by Dr. Dipak Mitchell. This apparently broke down, and he had this revised in [place]. From what I can person on history, this was in August but this is not clear. He had been doing well, but he indicates that any time he tries to use his prosthesis he develops inflammation of the wound. About 2-3 days ago he developed increasing pain and some vague swelling at the stump. He flexed the stump, and the wound broke open and started draining a serosanguineous material 2 days ago. He presents to the emergency room with some diffuse cellulitis and above complaints. PAST MEDICAL HISTORY: Significant for chronic right foot problems. He is followed by Dr. Glover for right great toe infection and also by Dr. Whittington. He has been on minocycline. He apparently has acute sinus tachycardia, diabetic foot ulcer, history of chronic liver disease, hypertension, diabetes, obesity, depression, BPH, and thrombocytopenia. MEDICATIONS: 1. Lantus. 2. Robaxin. 3. Benadryl. 4. Insulin. 5. Clindamycin. 6. Levofloxacin. ALLERGIES: 1. AMOXICILLIN. 2. AMPICILLIN. 3. LATEX. 4. EGGS. REVIEW OF SYSTEMS: Fairly complicated and, again, he is a poor historian, but mostly as it relates to his present complaint, he has had no other acute medical problems. PHYSICAL EXAMINATION: GENERAL: Patient is awake and alert, resting comfortably. He answers questions appropriately, although somewhat scattered. He is generally a poor historian. HEAD: Normocephalic, atraumatic. EYES: PERRLA. Conjunctiva clear. ENT: Within normal limits. HEART: Regular. LUNGS: Clear. ABDOMEN: Benign. EXTREMITIES: His left stump below-knee amputation looks to be about 8 to 10 cm below the knee. There is a suture line which is intact and well healed. There is an area of maybe 1 cm which is opened and is packed with iodoform gauze. There was a line drawn where he had some increased redness. This certainly appears to be defervesced as there is really minimal diffuse erythema. There is an area of deep rubor which appears to be possibly even developing full-thickness necrosis just anterior to the anterior flap. IMPRESSION: Wound dehiscence, left below-knee amputation. PLAN: This very well may need to be revised. I would like to obtain an MRI scan to evaluate for osteomyelitis of the stump. I have discussed this with Dr. iDpak Mitchell who has previously operated on this gentleman's leg. GDD:yanely Job ID: [id number] Doc ID: [id number] Colt Plunkett MD
--- NOTE | 2020-12-17 11:13 | Infectious Disease Consult ---
HPI Data of Consult Primary Care Provider: LINDSAY Olvera Consult Narrative Patient Information: Note initiated : 12/17/20 at 10:56 am Service Date, if different from initiated Date: [] Patient: Tarun Molina 50 y/o M admitted on 12/16/20 for bleeding from LLL amputation. Chief Complaint: [Tarun is a 50-year-old obese diabetic to my previously seen for right great toe osteomyelitis. I last saw him November 21. He has been on minocycline for the past 6 weeks. A previous right toe culture grew MSSA, MRSE, and Sis parapsilosis. I did not consider the Sis species significant organism. Right great toe wound had closed at my last visit on oral minocycline. He had an MRI of his right foot completed October 29 which showed findings consistent with osteomyelitis. No complaints of right toe pain. He h as a previous history of left BKA approximately January 2020. He required revision approximately 1 month after that. He required a subsequent revision approximately August 2020 in [place]. He reports that it healed well other than a small scab that remained present. No complaints of drainage up until 2 days ago. He had subjective fevers. He noticed redness in the left lower extremity that has been marked out. He was admitted in the hospital yesterday for left BKA stump cellulitis. He had a CT scan completed yesterday that showed a fluid collection in the anterior stump 7 cm x 2.5 cm. A previous CAT scan had noted a collection at 4 cm and stable. No bone changes. An MRI is pending today. Dr. Plunkett has been consulted and plans to complete a debridement later today. Gram stain of drainage reveals gram-positive cocci in pairs and chains. Cultures yesterday no growth to date. White count yesterday 5.6 with a platelet count of 63,000. He has a history of thrombocytopenia. Creatinine yesterday 0.8 with a glucose of 242 and a bilirubin of 3.3. He has noticed redness has improved from the marked border today compared to yesterday. He has received IV Vanco IV Clinda and IV cefepime 2 g every [address] Kraus asked for consultation to assist with antibiotic recommendations.] cc:: CC: Austin Kraus Review of Systems Review of systems: General: He is lying comfortably in bed. I reviewed with nursing. Subjective fevers. No chills. HEENT: No headache or sore throat. Pulmonary: No cough or shortness of breath. Cardiac: No chest pain. GI: He did have loose stools a few days ago but not presently. No complaints of abdominal pain. Extremities: Left BKA stump sore. Drainage beginning 2 days ago. He has not been fitted for a prosthesis and only recently started using stocking over the left BKA stump. No problems with his right foot. PFSH PFSH All Active Problems (Updated 12/17/20 @ 11:13 by Sotero Glover MD) Cellulitis and abscess of left lower extremity (Acute) Thrombocytopenia (Acute) Rash (Acute) History of below-knee amputation of left lower extremity (Acute) Hyponatremia (Acute) Fever (Acute) Sinus tachycardia (Acute) Cellulitis of great toe of right foot (Acute) Diabetic foot ulcer (Acute) Osteomyelitis of great toe of right foot (Acute) Anemia, macrocytic (Acute) Deep postoperative wound infection (Acute) Cellulitis (Acute) Hyponatremia (Acute) Hyperglycemia (Acute) Self-care deficit for hygiene (Acute) Stomach ulcer (Chronic) Migraines (Chronic) Liver disease (Chronic) Joint pain (Chronic) Insomnia (Chronic) High blood pressure (Chronic) Type 2 diabetes mellitus (Chronic) Depression (Chronic) Daytime sleepiness (Chronic) Muscle pain (Chronic) Asthma (Chronic) Anxiety (Chronic) Acid reflux (Chronic) Chronic back pain (Chronic) Obesity (Chronic) Restless leg syndrome (Chronic) Diabetic neuropathy (Chronic) Skin fissure (Chronic) Callus of foot (Chronic) Onychomycosis (Chronic) Erectile dysfunction (Chronic) BPH (benign prostatic hyperplasia) (Chronic) 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 Restless leg syndrome (Chronic) Scrotal abscess (Resolved) Sepsis syndrome (Inactive) Skin fissure (Chronic) Stomach ulcer (Chronic) Thrombocytopenia 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) CT evidence of cirrhosis and probable hyperspenism Type 2 diabetes mellitus (Chronic) Surgical History History of hand surgery (Chronic) Left hand History of incision and drainage (Chronic) 10/31/2019-I & D of right lateral chest wall abscess Family History Mother Hypertension Diabetes Arthritis Stroke Social History marital status: single occupational status: employed smoking status: Never smoker alcohol intake frequency: holiday/special occasion only substance use type: does not use MEDS/ALLERGIES Home Medications and Allergies Home Medications Medication Instructions Recorded Confirmed Type Accu-Chek 1 each FS ACHS strip 02/23/20 12/16/20 Rx acetaminophen-codeine 1 tab PO Q4 PRN 03/10/20 12/16/20 History Lantus Solostar U-100 Insulin 70 unit SUBCUT BID 04/29/20 12/16/20 History methocarbamol 750 mg PO HS 04/29/20 12/16/20 History diphenhydramine-acetaminophen 2 tab PO HS PRN 10/03/20 12/16/20 History [Tylenol PM Extra Strength] insulin lispro [Humalog U-100 1 - 20 sliding scale dose SUBCUT 10/03/20 12/16/20 History Insulin] ACHS hydrochlorothiazide 12.5 mg PO DAILY 12/16/20 12/16/20 History minocycline 100 mg PO BID 12/16/20 12/16/20 History ropinirole 2 mg PO HS 12/16/20 12/16/20 History sertraline 25 mg PO HS 12/16/20 12/17/20 History atorvastatin 20 mg PO DAILY 12/17/20 12/17/20 History potassium chloride 20 meq PO DAILY 12/17/20 12/17/20 History Allergies Allergy/AdvReac Type Severity Reaction Status Date / Time Amoxicillin Allergy Mild Hives Verified 12/16/20 22:53 ampicillin Allergy Mild Hives Verified 12/16/20 22:53 latex Allergy Mild Rash Verified 12/16/20 22:53 egg AdvReac Mild Nausea Verified 12/16/20 22:53 Physical Examination Vital Signs Vital signs: Temp Pulse Resp BP Pulse Ox 97.8 F 87 20 125/68 98 12/17/20 08:00 12/17/20 08:00 12/17/20 08:00 12/17/20 08:00 12/17/20 08:00 Additional Exam Additional exam: General: No acute distress. HEENT: EOMI PERRL sclera anicteric. Neck is full. Lungs: Clear without wheezing. Abdomen: Soft nontender obese. Extremities: Right great toe slight dry callus. No erythema swelling or tenderness. No foot edema. Left BKA with dressing. Photos revi ewed. No left knee effusion. Marked border without erythema. He does have tenderness at the BKA stump region. I did not remove the dressing. He does have a scab present over the stump midline. There is dark tissue present anteriorly. The packing is also present which is slightly bloody to. Packing was just placed yesterday. Results Laboratory Findings CBC and BMP: 12/17/20 05:14 12/17/20 05:14 ABG, PT/INR, D-dimer: PT/INR, D-dimer PT 16.6 sec (11.9-14.5) H 12/16/20 16:55 INR 1.3 (0.9-1.1) H 12/16/20 16:55 Abnormal lab findings: Abnormal Labs 12/16/20 12/16/20 12/16/20 16:55 16:55 16:55 RBC 3.05 L Hgb 10.4 L Hct 30.6 L MCV 100.3 H MCH 34.1 H Plt Count 63 L MPV 11.3 H Lymph # (Auto) Seg Neutrophils % 80 H Lymphocytes % 12 L Platelet Estimate Decreased A RBC Morphology Abnormal A Polychromasia 1+ A Macrocytosis 1+ A PT INR Sodium 132 L Creatinine Glucose 242 H Uric Acid Calcium 7.7 L Total Bilirubin 3.3 H Direct Bilirubin Lactate Dehydrogenase C-Reactive Protein 11.10 H Albumin 2.5 L Globulin 4.7 H Albumin/Globulin Ratio 0.5 L Procalcitonin 0.55 H 12/16/20 12/17/20 12/17/20 16:55 05:14 05:14 RBC 2.79 L Hgb 9.7 L Hct 28.4 L MCV 101.8 H MCH 34.8 H Plt Count 62 L MPV 11.8 H Lymph # (Auto) 0.84 L Seg Neutrophils % Lymphocytes % Platelet Estimate RBC Morphology Polychromasia Macrocytosis PT 16.6 H INR 1.3 H Sodium Creatinine 0.6 L Glucose 204 H Uric Acid 2.4 L Calcium 7.4 L Total Bilirubin 2.7 H Direct Bilirubin 1.6 H Lactate Dehydrogenase 238 H C-Reactive Protein Albumin 2.2 L Globulin 4.5 H Albumin/Globulin Ratio 0.5 L Procalcitonin Microbiology: Microbiology 12/17/20 05:57 Stump - Left Leg Gram Stain - Preliminary 12/16/20 20:47 Nasopharynx SARS-CoV-2, Influenza & RSV (PCR) - Final A/P Assessment and plan (1) Cellulitis and abscess of left lower extremity: Status: Acute Comment: Tarun is a 50-year-old obese diabetic with underlying liver disease and thrombocytopenia. He has a history of left BKA requiring subsequent revision. Last revision completed approximately August. The small scab remained at this site. He is only recently begun using compressive stocking on the left BKA extremity. He has not begun using prosthesis yet. He had a known fluid collection present on previous CT scan which was noted to be larger on yesterday's CAT scan. Left lower extremity erythematous cellulitis appears to have receded. It seems that this fluid collection has only recently become infected possibly from this overlying scab. CT scan does not show new bony changes. MRI pending today. Initial Gram stain has shown gram-positive cocci i n pairs and chains. Staph or strep seems most likely. Blood cultures no growth to date. Dr. Plunkett plans to take the patient to the operating room for debridement of the abscess later today. He has been started on Vanco cefepime and Clinda mycin. I agree with Vanco and cefepime at this time. Clindamycin can be discontinued. Depending on intraoperative findings, I am expecting 2 to 4 weeks of IV antibiotic therapy. (2) History of below-knee amputation of left lower extremity: Status: Acute Comment: Stump abscess/cellulitis. (3) Thrombocytopenia: Status: Acute Comment: History of liver disease. (4) Osteomyelitis of great toe of right foot: Status: Acute Comment: He has been on minocycline for the past 6 weeks. Previous cultures have been MSSA and MRSE. This site has improved on 6 weeks of minocycline. I had anticipated 6 months of minocycline. Minocycline may be held while receiving IV antibiotic therapy. (5) Liver disease: Status: Chronic Comment: Thrombocytopenia. (6) Type 2 diabetes mellitus: Status: Chronic Comment: Glucose yesterday 242. Place PICC line for anticipated home IV therapy. If no osteomyelitis or bony debridement completed at the time of surgery today I am anticipating 2 weeks of treatment. I may extend to 4 to 6 weeks depending on intraoperative findings. I would recommend both Vanco and cefepime at this time until final cultures available. Weekly labs recommended while outpatient. To include CBC CMP sed rate and CRP. No previous history of MRSA. If MRSE identified, Vanco will be utilized. I will modify antibiotic therapy once cultures are finalized. Please contact me once cultures are finalized. I would be happy to see the patient in clinic follow-up following hospital discharge. Duration of IV therapy yet to be determined. If MSSA or strep identified, Ancef may be utilized with return to oral minocycline additionally to cover the MRSA in the right great toe. Thank you very much for let me be involved in Tarun consultative care. Qualifiers: Diabetes mellitus complication status: with other specified complication Diabetes mellitus emt intermediate insulin use: with jail use Qualified Code(s): E11.69 - Type 2 diabetes mellitus with other specified complication; Z79.4 - penitentiary (current) use of insulin Time Spent With Patient Time: Total time spent is greater than 50% in coordination of care (as documented) at patient's floor/unit and/or counseling patient:
[2020-12-17] MEDS ORDERED: VANCOMYCIN PER PHARMACY IV SCH (11:36)
[2020-12-17] MEDS ORDERED: 0.9 % SODIUM CHLORIDE 10 ML SYRINGE IV PRN (12:15)
[2020-12-17] MEDS: VANCOMYCIN 2,000 MG in 0.9 % SODIUM CHLORIDE 500 ML IV SCH ×2 (12:53→20:58)
--- NOTE | 2020-12-17 16:20 | Magnetic Resonance Report ---
CLINICAL INFORMATION: History of DKA with soft tissue infection over the stomach. Dilated for osteomyelitis. COMPARISON: Postsurgical MRI over four months prior 08/06/2020 TECHNIQUE: Axial T1 STIR, coronal T1 STIR and sagittal T2 and T1-weighted images were acquired. FINDINGS: Mild diffuse thickening and increased signal of the anterior cortex of the tibial stump is unchanged from the previous examination. It may represent mild chronic osteomyelitis. There are no new marrow signal abnormalities. This is adjacent to the 5.2 x 1.7 cm subcutaneous abscess in the anterior distal stomach region. A 20 x 7 mm urinary cyst in the proximal fibular diaphysis. This study region is unchanged. Mild myositis and fasciitis in the posterior compartment of the residual Diffuse cellulitis is little change. Neurovascular structures are normal. IMPRESSION: 5.2 x 2 cm abscess in the subcutaneous soft tissues anterior tibial stump. Diffuse cellulitis and mild fasciitis in the posterior compartment of the residual calf. Diffuse thickening and increased signal throughout the anterior cortex of the tibial stump is unchanged from the comparison MRI four months prior. Given the stability, this either represents indolent nonprogressive osteomyelitis, noninfectious inflammation or even posttraumatic contusion. 20 x 7 mm intramedullary cyst in the central fibular diaphysis adjacent to the stump. Interpreted and Authenticated by: Karthikeyan Dia 12/17/20
[2020-12-17] MEDS: INSULIN GLARGINE, HUMAN 1 UNIT/0.01 ML SQ SCH (20:59)
[2020-12-17] MEDS: rOPINIRole 1 MG TABLET PO SCH (21:00)
[2020-12-17] MEDS: METHOCARBAMOL 750 MG TABLET PO SCH (21:00)
[2020-12-17] MEDS: SERTRALINE 50 MG TABLET PO SCH (21:02)
[2020-12-18] MEDS: ONDANSETRON 4 MG/2 ML VIAL IV PRN (02:54)
[2020-12-18] MEDS: CLINDAMYCIN 600 MG in DEXTROSE 5% IN WATER 50 ML IV SCH ×2 (05:40→14:47)
[2020-12-18 06:29] LABS: Basophils # (Auto) 0.02 K/mcL (0.00-0.20); Basophils % (Auto) 0.5 % (0.0-2.0); Eosinophils # (Auto) 0.11 K/mcL (0.00-0.70); Eosinophils % (Auto) 2.7 % (0.0-7.0); Hematocrit 29.3 % (41.0-55.0); Lymphocytes # (Auto) 0.72 K/mcL (1.50-4.80); Lymphocytes % (Auto) 17.7 % (15.0-49.0); Mean Cell Volume 101.4 fL (80.0-100.0); Mean Corpuscular HGB Conc 34.1 g/dL (31.0-36.0); Mean Platelet Volume 12.1 fL (7.4-10.4); Monocytes % (Auto) 4.9 % (1.0-12.0); Neutrophils % (Auto) 74.2 % (38.0-78.0); Platelet Count 75 K/mcL (140-440); RBC 2.89 M/mcL (4.50-5.90); Red Cell Distribution Width 13.4 % (11.5-14.5); WBC 4.1 K/mcL (4.5-11.0)
--- NOTE | 2020-12-18 06:40 | Internal Med Progress Note ---
SUBJECTIVE Subjective Patient information: Note initiated : 12/18/20 at 6:37 am Service Date, if different from initiated Date: [] Patient: Tarun Molina 50 y/o M admitted on 12/16/20 for bleeding from LLL amputation. Chief Complaint: [] Interval history: Mr. Molina is a 50 year old M Presents the ED with a left stump bleeding. 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 Patient states that the other day his was draining a serosanguineous fluid in his son that from time to time to do it necessary surprised him however today he started losing blood with some blood clots. He says he developed increased redness and tenderness to that leg as well. Says he had a fever several days ago but that broke. He had one episode of diarrhea yesterday and that resolved. He has a chronic dry cough which is high for months. No other pains or complaints. He has been following with Dr. Glover for the right great toe infection for which she is on minocycline for about a 6-month regimen it sounds like. He is also followed Dr. Whittington the consumer insights intern. Last wound cultures we have of him are of the right foot which grew MSSA as well as some gram coag negative's 12/17 No overnight event or new complaints. No fever chills. Patient seen by surgery and will undergo I&D. 12/18 Occasional nausea but no other complaints or overnight events. Plan for debridement today or tomorrow. Followed by Dr. Glover. Review of Systems: denies headache/fever/chills/vomiting/chest or abdominal pain/cough/dyspnea/diarrhea. Otherwise see above. Constitutional Vitals: Vital Signs Temp Pulse Resp BP Pulse Ox 98.6 F 79 18 118/69 96 12/18/20 04:00 12/18/20 04:00 12/18/20 04:00 12/18/20 04:00 12/18/20 04:00 Period Temp Pulse Resp BP Sys/Garcia Pulse Ox Last 24 Hr 97.7 F-98.6 F 67-87 18-20 93-125/57-74 96-99 Intake and Output 02/16/21 02/17/21 02/17/21 21:59 05:59 13:59 Intake Total 554 Output Total 100 750 Balance 454 -750 Weight 126.598 kg Intake & Output: Intake & Output 12/17/20 12/18/20 12/18/20 21:59 05:59 13:59 Intake Total 554 Output Total 100 750 Balance 454 -750 Weight 126.598 kg Intake: IV 554 Cleocin 600 mg In Dextrose 5% 54 in Water 50 ml @ 100 mls/hr IV Q8H [facility] Rx#:[id number] Vancomycin 2,000 mg In Sodium 500 Chloride 0.9% 500 ml @ 250 mls/ hr IV Q12H [facility] Rx#:[id number] Output: Void Amount 100 750 Other: Urine Appearance Clear Clear Urine Color Tea Colored Tea Colored Urine Odor Strong Strong Stool Size Moderate Stool Color Brown Stool Consistency Soft # Emeses 0 Exam: General: Alert, Awake, No acute Distress, obese Eyes/N/T: EOMI, Head/Neck: neck supple, CV: RRR, No murmurs, Pulm: Clear b/l, no wheezing/rhonchi/rales Abd: soft, nontender, +BS x4 Ext: no clubbing/cyanosis/edema to RLE. LLE BKA with dressing in place, inner thigh erythematous/tender to touch improved Neuro: Alert, no focal deficits, moves all extremities, decreased sensations b/l LE chronic Skin: warm/dry OBJ DATA Labs CBC & Chem 7: 12/18/20 05:33 12/18/20 05:33 Labs: Abnormal Lab Results 12/18/20 12/17/20 12/17/20 05:33 05:14 05:14 WBC 4.1 L RBC 2.89 L 2.79 L Hgb 10.0 L 9.7 L Hct 29.3 L 28.4 L MCV 101.4 H 101.8 H MCH 34.6 H 34.8 H Plt Count 75 L 62 L MPV 12.1 H 11.8 H Lymph # (Auto) 0.72 L 0.84 L Seg Neutrophils % Lymphocytes % Platelet Estimate RBC Morphology Polychromasia Macrocytosis PT INR Sodium Creatinine 0.6 L Glucose 204 H Uric Acid 2.4 L Calcium 7.4 L Total Bilirubin 2.7 H Direct Bilirubin 1.6 H Lactate Dehydrogenase 238 H C-Reactive Protein Albumin 2.2 L Globulin 4.5 H Albumin/Globulin Ratio 0.5 L Procalcitonin 12/16/20 12/16/20 12/16/20 16:55 16:55 16:55 WBC RBC 3.05 L Hgb 10.4 L Hct 30.6 L MCV 100.3 H MCH 34.1 H Plt Count 63 L MPV 11.3 H Lymph # (Auto) Seg Neutrophils % 80 H Lymphocytes % 12 L Platelet Estimate Decreased A RBC Morphology Abnormal A Polychromasia 1+ A Macrocytosis 1+ A PT 16.6 H INR 1.3 H Sodium Creatinine Glucose Uric Acid Calcium Total Bilirubin Direct Bilirubin Lactate Dehydrogenase C-Reactive Protein Albumin Globulin Albumin/Globulin Ratio Procalcitonin 0.55 H 12/16/20 16:55 WBC RBC Hgb Hct MCV MCH Plt Count MPV Lymph # (Auto) Seg Neutrophils % Lymphocytes % Platelet Estimate RBC Morphology Polychromasia Macrocytosis PT INR Sodium 132 L Creatinine Glucose 242 H Uric Acid Calcium 7.7 L Total Bilirubin 3.3 H Direct Bilirubin Lactate Dehydrogenase C-Reactive Protein 11.10 H Albumin 2.5 L Globulin 4.7 H Albumin/Globulin Ratio 0.5 L Procalcitonin Meds: Medications Acetaminophen (Tylenol) 650 mg PO Q6HP PRN PRN Reason: PAIN/FEVER > 101 Last Admin: 12/17/20 09:35 Dose: 650 mg Documented by: Hydrocodone Bitart/Acetaminophen (Scio 5/325mg) 1 tab PO Q6HP PRN; Protocol PRN Reason: Per Pain Protocol Albuterol/Ipratropium (Duoneb) 3 ml NEB Q4HP PRN PRN Reason: Shortness Of Breath Atorvastatin Calcium (Lipitor) 20 mg PO DAILY [facility] Last Admin: 12/17/20 09:09 Dose: 20 mg Documented by: Cefepime HCl (Maxipime) 2 gm IV Q12H [facility]; Protocol Last Admin: 12/17/20 20:59 Dose: 2 gm Documented by: Dextrose (Dextrose 50%) 0 ml IV UD PRN PRN Reason: Hypoglycemia Diagnostic Test (Pha) (Accu-Chek) 1 each FS ACHS [facility] Last Admin: 12/17/20 20:57 Dose: 1 each Documented by: Docusate Sodium (Colace) 100 mg PO BID [facility] Last Admin: 12/17/20 21:00 Dose: 100 mg Documented by: Glucose (Insta-Glucose) 15 gm PO PRN PRN PRN Reason: Hypoglycemia Heparin Sodium (Porcine) (Heparin 10 Units/Ml Flush) 2 ml IV Q12 [facility] Last Admin: 12/17/20 21:04 Dose: Not Given Documented by: Potassium Chloride 40 meq/ (Dextrose) 520 mls @ 130 mls/hr IV UD PRN PRN Reason: Potassium < 3 Magnesium Sulfate (Magnesium Sulfate) 2 gm in 50 mls @ 50 mls/hr IV UD PRN PRN Reason: Magnesium </= 1.6 Last Infusion: 12/17/20 11:09 Dose: Infused Documented by: Clindamycin Phosphate 600 mg/ (Dextrose) 54 mls @ 100 mls/hr IV Q8H [facility]; Protocol Last Admin: 12/17/20 20:57 Dose: 100 mls/hr Documented by: Vancomycin HCl 2,000 mg/ (Sodium Chloride) 500 mls @ 250 mls/hr IV Q12H [facility] Last Admin: 12/17/20 20:58 Dose: 250 mls/hr Documented by: Insulin Glargine (Lantus) 70 unit SQ BID [facility] Last Admin: 12/17/20 20:59 Dose: 70 units Documented by: Insulin Human Lispro (Humalog) 0 unit SQ ACHS [facility]; Protocol Last Admin: 12/17/20 21:03 Dose: 6 units Documented by: Lactobacillus Rhamnosus (Culturelle) 1 cap PO BID [facility] Last Admin: 12/17/20 21:02 Dose: 1 cap Documented by: Methocarbamol (Robaxin) 750 mg PO HS [facility] Last Admin: 12/17/20 21:00 Dose: 750 mg Documented by: Minocycline HCl (Minocin) 100 mg PO BID [facility] Last Admin: 12/17/20 20:58 Dose: 100 mg Documented by: Ondansetron HCl (Zofran) 4 mg IV Q4HP PRN PRN Reason: Nausea And Vomiting Last Admin: 12/18/20 02:54 Dose: 4 mg Documented by: Phenyltoloxamine Citr/Acetaminophen (Tylenol Pm) 2 tab PO HS PRN PRN Reason: Sleep Polyethylene Glycol (Miralax) 17 gm PO DAILYP PRN PRN Reason: Constipation Potassium Chloride (Kdur) 40 meq PO UD PRN PRN Reason: Potssium is 3-3.5 Potassium Chloride (Kdur) 40 meq PO UD PRN PRN Reason: Potassium < 3 Ropinirole HCl (Requip) 2 mg PO HS [facility] Last Admin: 12/17/20 21:00 Dose: 2 mg Documented by: Senna (Senokot) 2 tab PO DAILYP PRN PRN Reason: Constipation Sertraline HCl (Zoloft) 25 mg PO HS [facility] Last Admin: 12/17/20 21:02 Dose: 25 mg Documented by: Sodium Chloride (Saline Flush) 10 ml IV Q8 [facility] Last Admin: 12/17/20 21:03 Dose: 10 ml Documented by: Sodium Chloride (Saline Flush) 10 ml IV UD PRN PRN Reason: FLUSH Sodium Chloride (Saline Flush) 10 ml IV Q12 [facility] Last Admin: 12/17/20 21:03 Dose: 10 ml Documented by: Vancomycin HCl (Vancomycin Per Pharmacy) 1 order IV UD [facility]; Protocol A/P Narrative A/P Narrative: Assessment: *Left BKA stump cellulitis w/Abscess/gas & Bleeding: -wound cxs growing *Right great toe osteomyelitis: Being treated with extended course of minocycline by Dr. Glover -Also following with Dr. Whittington *Mild Hyponatremia: corrected is 134 on admit. is on HCTZ -improved *Cirrhosis w/thrombocytopenia: has had extensive w/u to determine etiology in past but likely etoh -Was on Lasix/Aldactone but says those stopped working and so he is on hydrochlorothiazide -baseline plt ~60 *Anemia, chronic: *Obesity: Plan: -cefepime/vanco, pending WC/BC -Dr. Plunkett consulted for possible debridement -Dr. Glover following -wound care -basal and SSI -hold hctz for now -pt/ot -ppx: right leg scd, hold chemical for bleeding stump full code Time Spent With Patient Time: Total time spent is greater than 50% in coordination of care (as documented) at patient's floor/unit and/or counseling patient: QUALITY Stroke Symptom Onset Unknown: No VTE Deep Vein Thrombosis/Pulmonary Embolism Present on Admission: No
[2020-12-18 07:02] LABS: Blood Urea Nitrogen 8 mg/dL (6-20); Calcium 7.7 mg/dL (8.6-10.4); Carbon Dioxide 26 mmol/L (22-30); Chloride 105 mmol/L (96-108); Glomerular Filtration Rate 116; Glucose 129 mg/dL (70-105)
[2020-12-18] MEDS: INSULIN LISPRO 1 UNIT/0.01 ML UNIT SQ SCH ×4 (08:06→21:58)
[2020-12-18] MEDS: 0.9 % SODIUM CHLORIDE 10 ML SYRINGE IV SCH ×5 (08:19→22:01)
--- NOTE | 2020-12-18 08:37 | Orthopedic Consult Note ---
HPI Data of Consult Primary Care Provider: LINDSAY Olvera Consult Narrative Patient Information: Note initiated : 12/18/20 at 8:36 am Service Date, if different from initiated Date: [] Patient: Tarun Molina 50 y/o M admitted on 12/16/20 for bleeding from LLL amputation. Chief Complaint: [] cc:: CC: Austin Kraus [facility] All Active Problems (Updated 12/17/20 @ 11:13 by Sotero Glover MD) Cellulitis and abscess of left lower extremity (Acute) Thrombocytopenia (Acute) Rash (Acute) History of below-knee amputation of left lower extremity (Acute) Hyponatremia (Acute) Fever (Acute) Sinus tachycardia (Acute) Cellulitis of great toe of right foot (Acute) Diabetic foot ulcer (Acute) Osteomyelitis of great toe of right foot (Acute) Anemia, macrocytic (Acute) Deep postoperative wound infection (Acute) Cellulitis (Acute) Hyponatremia (Acute) Hyperglycemia (Acute) Self-care deficit for hygiene (Acute) Stomach ulcer (Chronic) Migraines (Chronic) Liver disease (Chronic) Joint pain (Chronic) Insomnia (Chronic) High blood pressure (Chronic) Type 2 diabetes mellitus (Chronic) Depression (Chronic) Daytime sleepiness (Chronic) Muscle pain (Chronic) Asthma (Chronic) Anxiety (Chronic) Acid reflux (Chronic) Chronic back pain (Chronic) Obesity (Chronic) Restless leg syndrome (Chronic) Diabetic neuropathy (Chronic) Skin fissure (Chronic) Callus of foot (Chronic) Onychomycosis (Chronic) Erectile dysfunction (Chronic) BPH (benign prostatic hyperplasia) (Chronic) 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 Restless leg syndrome (Chronic) Scrotal abscess (Resolved) Sepsis syndrome (Inactive) Skin fissure (Chronic) Stomach ulcer (Chronic) Thrombocytopenia 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) CT evidence of cirrhosis and probable hyperspenism Type 2 diabetes mellitus (Chronic) Surgical History History of hand surgery (Chronic) Left hand History of incision and drainage (Chronic) 10/31/2019-I & D of right lateral chest wall abscess Family History Mother Hypertension Diabetes Arthritis Stroke Social History marital status: single occupational status: employed smoking status: Never smoker alcohol intake frequency: holiday/special occasion only substance use type: does not use MEDS/ALLERGIES Home Medications and Allergies Home Medications Medication Instructions Recorded Confirmed Type Accu-Chek 1 each FS ACHS strip 02/23/20 12/16/20 Rx acetaminophen-codeine 1 tab PO Q4 PRN 03/10/20 12/16/20 History Lantus Solostar U-100 Insulin 70 unit SUBCUT BID 04/29/20 12/16/20 History methocarbamol 750 mg PO HS 04/29/20 12/16/20 History diphenhydramine-acetaminophen 2 tab PO HS PRN 10/03/20 12/16/20 History [Tylenol PM Extra Strength] insulin lispro [Humalog U-100 1 - 20 sliding scale dose SUBCUT 10/03/20 12/16/20 History Insulin] ACHS hydrochlorothiazide 12.5 mg PO DAILY 12/16/20 12/16/20 History minocycline 100 mg PO BID 12/16/20 12/16/20 History ropinirole 2 mg PO HS 12/16/20 12/16/20 History sertraline 25 mg PO HS 12/16/20 12/17/20 History atorvastatin 20 mg PO DAILY 12/17/20 12/17/20 History potassium chloride 20 meq PO DAILY 12/17/20 12/17/20 History Allergies Allergy/AdvReac Type Severity Reaction Status Date / Time Amoxicillin Allergy Mild Hives Verified 12/16/20 22:53 ampicillin Allergy Mild Hives Verified 12/16/20 22:53 latex Allergy Mild Rash Verified 12/16/20 22:53 egg AdvReac Mild Nausea Verified 12/16/20 22:53 Physical Examination Knee left: Appearance: other A/P Narrative A/P Narrative: Pt has open wound after BK amputation done in i recommend secondary closure, bone biopsy, and application of VAC dressing. PAR reviwed with pt, orders written Time Spent With Patient Time: Total time spent is greater than 50% in coordination of care (as documented) at patient's floor/unit and/or counseling patient: Total time spent with greater than 50% in coordination of care (as documented) at patient's floor/unit and/or counseling patient:: 15 - 24 minutes
[2020-12-18] MEDS: INSULIN GLARGINE, HUMAN 1 UNIT/0.01 ML SQ SCH ×2 (11:24→21:58)
[2020-12-18] MEDS: DOCUSATE SODIUM 100 MG CAPSULE PO SCH ×2 (11:24→21:59)
[2020-12-18] MEDS: LACTOBACILLUS 1 CAPSULE PO SCH ×2 (11:24→21:59)
[2020-12-18] MEDS: ATORVASTATIN 20 MG TABLET PO SCH (11:24)
[2020-12-18] MEDS: CEFEPIME 2 GM VIAL IV SCH ×2 (11:27→21:59)
[2020-12-18] MEDS: VANCOMYCIN 2,000 MG in 0.9 % SODIUM CHLORIDE 500 ML IV SCH ×2 (11:52→22:01)
[2020-12-18] MEDS ORDERED: SCOPOLAMINE 1 PATCH PATCH TOPICAL PRN (14:10)
[2020-12-18 20:35] LABS: Appearance,Urine CLEAR (Clear); Bilirubin,Urine Negative (Negative); Color,Urine AMBER; Culture Indicated,Urine No; Glucose,Urine (UA) 150 mg/dL (Negative); Ketones,Urine Negative (Negative); Leukocyte Esterase,Urine Negative /ug (Negative); Nitrate,Urine Negative (Negative); Protein,Urine Negative (Negative); Specific Gravity,Urine 1.026 (1.000-1.035); Urine Blood Negative (Negative)
[2020-12-18] MEDS: METHOCARBAMOL 750 MG TABLET PO SCH (21:59)
[2020-12-18] MEDS: rOPINIRole 1 MG TABLET PO SCH (21:59)
[2020-12-18] MEDS: SERTRALINE 50 MG TABLET PO SCH (21:59)
[2020-12-19] MEDS: VANCOMYCIN 2,000 MG in 0.9 % SODIUM CHLORIDE 500 ML IV SCH ×3 (00:03→22:05)
[2020-12-19] MEDS: ONDANSETRON 4 MG/2 ML VIAL IV PRN ×2 (02:38→07:31)
[2020-12-19] MEDS: 0.9 % SODIUM CHLORIDE 10 ML SYRINGE IV SCH ×5 (05:27→21:22)
--- NOTE | 2020-12-19 06:57 | Infectious Disease Consult ---
HPI Data of Consult Primary Care Provider: LINDSAY Olvera Consult Narrative Patient Information: Note initiated : 12/19/20 at 6:54 am Service Date, if different from initiated Date: [] Patient: Tarun Molina 50 y/o M admitted on 12/16/20 for bleeding from LLL amputation. Chief Complaint: [Tarun is a 50-year-old man who is currently hospital day #4 for left stump abscess at a previous BKA site. Group B strep is growing from culture. He is currently on IV Vanco plus IV cefepime. Dr. Mitchell was consulted yesterday who recommended debridement and bone biopsy to assess for osteomyelitis. He is scheduled to go to the operating room today. He does complain of nausea. He is currently n.p.o.] cc:: CC: Austin Kraus [facility] All Active Problems (Updated 12/19/20 @ 07:09 by Sotero Glover MD) Group B streptococcal infection (Acute) Cellulitis and abscess of left lower extremity (Acute) Thrombocytopenia (Acute) Rash (Acute) History of below-knee amputation of left lower extremity (Acute) Hyponatremia (Acute) Fever (Acute) Sinus tachycardia (Acute) Cellulitis of great toe of right foot (Acute) Diabetic foot ulcer (Acute) Osteomyelitis of great toe of right foot (Acute) Anemia, macrocytic (Acute) Deep postoperative wound infection (Acute) Cellulitis (Acute) Hyponatremia (Acute) Hyperglycemia (Acute) Self-care deficit for hygiene (Acute) Stomach ulcer (Chronic) Migraines (Chronic) Liver disease (Chronic) Joint pain (Chronic) Insomnia (Chronic) High blood pressure (Chronic) Type 2 diabetes mellitus (Chronic) Depression (Chronic) Daytime sleepiness (Chronic) Muscle pain (Chronic) Asthma (Chronic) Anxiety (Chronic) Acid reflux (Chronic) Chronic back pain (Chronic) Obesity (Chronic) Restless leg syndrome (Chronic) Diabetic neuropathy (Chronic) Skin fissure (Chronic) Callus of foot (Chronic) Onychomycosis (Chronic) Erectile dysfunction (Chronic) BPH (benign prostatic hyperplasia) (Chronic) 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 Restless leg syndrome (Chronic) Scrotal abscess (Resolved) Sepsis syndrome (Inactive) Skin fissure (Chronic) Stomach ulcer (Chronic) Thrombocytopenia 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) CT evidence of cirrhosis and probable hyperspenism Type 2 diabetes mellitus (Chronic) Surgical History History of hand surgery (Chronic) Left hand History of incision and drainage (Chronic) 10/31/2019-I & D of right lateral chest wall abscess Family History Mother Hypertension Diabetes Arthritis Stroke Social History marital status: single occupational status: employed smoking status: Never smoker alcohol intake frequency: holiday/special occasion only substance use type: does not use MEDS/ALLERGIES Home Medications and Allergies Home Medications Medication Instructions Recorded Confirmed Type Accu-Chek 1 each FS ACHS strip 02/23/20 12/16/20 Rx acetaminophen-codeine 1 tab PO Q4 PRN 03/10/20 12/16/20 History Lantus Solostar U-100 Insulin 70 unit SUBCUT BID 04/29/20 12/16/20 History methocarbamol 750 mg PO HS 04/29/20 12/16/20 History diphenhydramine-acetaminophen 2 tab PO HS PRN 10/03/20 12/16/20 History [Tylenol PM Extra Strength] insulin lispro [Humalog U-100 1 - 20 sliding scale dose SUBCUT 10/03/20 12/16/20 History Insulin] ACHS hydrochlorothiazide 12.5 mg PO DAILY 12/16/20 12/16/20 History minocycline 100 mg PO BID 12/16/20 12/16/20 History ropinirole 2 mg PO HS 12/16/20 12/16/20 History sertraline 25 mg PO HS 12/16/20 12/17/20 History atorvastatin 20 mg PO DAILY 12/17/20 12/17/20 History potassium chloride 20 meq PO DAILY 12/17/20 12/17/20 History Allergies Allergy/AdvReac Type Severity Reaction Status Date / Time latex Allergy Mild Rash Verified 12/16/20 22:53 Penicillins Allergy Mild Hives Verified 12/19/20 06:57 Physical Examination Vital Signs Vital signs: Temp Pulse Resp BP Pulse Ox 98.0 F 81 18 124/75 95 12/19/20 02:27 12/19/20 02:27 12/19/20 02:27 12/19/20 02:27 12/19/20 02:27 Additional Exam Additional exam: General: Awake alert no acute distress. HEENT: Mouth is moist. Anicteric sclera. Lungs are clear bilaterally without rales or wheezing. Heart: Regular rate and rhythm without murmur. Abdomen: Obese soft nontender. Extremities: Right great toe dry skin mild callus no erythema or drainage. Nontender. Left BKA stump wrapped. No erythema proximal to the wrap. No left knee effusion or tenderness. I did not remove the dressing. He only has a peripheral line at this time. Results Laboratory Findings CBC and BMP: 12/18/20 05:33 12/18/20 05:33 ABG, PT/INR, D-dimer: PT/INR, D-dimer PT 16.6 sec (11.9-14.5) H 12/16/20 16:55 INR 1.3 (0.9-1.1) H 12/16/20 16:55 Abnormal lab findings: Abnormal Labs 12/16/20 12/16/20 12/16/20 16:55 16:55 16:55 WBC RBC 3.05 L Hgb 10.4 L Hct 30.6 L MCV 100.3 H MCH 34.1 H Plt Count 63 L MPV 11.3 H Lymph # (Auto) Seg Neutrophils % 80 H Lymphocytes % 12 L Platelet Estimate Decreased A RBC Morphology Abnormal A Polychromasia 1+ A Macrocytosis 1+ A PT INR Sodium 132 L Anion Gap Creatinine Glucose 242 H Uric Acid Calcium 7.7 L Total Bilirubin 3.3 H Direct Bilirubin Lactate Dehydrogenase C-Reactive Protein 11.10 H Albumin 2.5 L Globulin 4.7 H Albumin/Globulin Ratio 0.5 L Procalcitonin 0.55 H Urine Glucose (UA) Urine Urobilinogen 12/16/20 12/17/20 12/17/20 16:55 05:14 05:14 WBC RBC 2.79 L Hgb 9.7 L Hct 28.4 L MCV 101.8 H MCH 34.8 H Plt Count 62 L MPV 11.8 H Lymph # (Auto) 0.84 L Seg Neutrophils % Lymphocytes % Platelet Estimate RBC Morphology Polychromasia Macrocytosis PT 16.6 H INR 1.3 H Sodium Anion Gap Creatinine 0.6 L Glucose 204 H Uric Acid 2.4 L Calcium 7.4 L Total Bilirubin 2.7 H Direct Bilirubin 1.6 H Lactate Dehydrogenase 238 H C-Reactive Protein Albumin 2.2 L Globulin 4.5 H Albumin/Globulin Ratio 0.5 L Procalcitonin Urine Glucose (UA) Urine Urobilinogen 12/18/20 12/18/20 12/18/20 05:33 05:33 05:33 WBC 4.1 L RBC 2.89 L Hgb 10.0 L Hct 29.3 L MCV 101.4 H MCH 34.6 H Plt Count 75 L MPV 12.1 H Lymph # (Auto) 0.72 L Seg Neutrophils % Lymphocytes % Platelet Estimate RBC Morphology Polychromasia Macrocytosis PT INR Sodium Anion Gap 6.0 L Creatinine 0.6 L Glucose 129 H Uric Acid Calcium 7.7 L Total Bilirubin Direct Bilirubin Lactate Dehydrogenase C-Reactive Protein 7.70 H Albumin Globulin Albumin/Globulin Ratio Procalcitonin 0.32 H Urine Glucose (UA) Urine Urobilinogen 12/18/20 19:25 WBC RBC Hgb Hct MCV MCH Plt Count MPV Lymph # (Auto) Seg Neutrophils % Lymphocytes % Platelet Estimate RBC Morphology Polychromasia Macrocytosis PT INR Sodium Anion Gap Creatinine Glucose Uric Acid Calcium Total Bilirubin Direct Bilirubin Lactate Dehydrogenase C-Reactive Protein Albumin Globulin Albumin/Globulin Ratio Procalcitonin Urine Glucose (UA) 150 A Urine Urobilinogen 4.0 A Microbiology: Microbiology 12/16/20 17:23 Blood Blood Culture - Preliminary 12/16/20 17:13 Blood Blood Culture - Preliminary 12/17/20 05:57 Stump - Left Leg Gram Stain - Preliminary 12/17/20 05:57 Stump - Left Leg Wound Culture - Preliminary Strep agalactiae - (group b) 12/16/20 20:47 Nasopharynx SARS-CoV-2, Influenza & RSV (PCR) - Final A/P Assessment and plan (1) Osteomyelitis of great toe of right foot: Status: Acute Comment: He has been on minocycline for the past 6 weeks. Previous cultures have been MSSA and MRSE. This site has improved on 6 weeks of minocycline. I had anticipated 6 months of minocycline. Minocycline will resume today. (2) Cellulitis and abscess of left lower extremity: Status: Acute Comment: Tarun is a 50-year-old obese diabetic with underlying liver disease and thrombocytopenia. He has a history of left BKA requiring subsequent revision. Last revision completed approximately August. CT scan and MRI confirm fluid collection in the distal BKA stump. Dr. Mitchell plans to take the patient to the operating room today for debridement and bone biopsy. This will help confirm presence or absence of osteomyelitis. (3) Thrombocytopenia: Status: Acute Comment: History of liver disease. (4) Group B streptococcal infection: Status: Acute Comment: Currently day four IV Vanco and cefepime. Debridement planned today with bone biopsy. PICC line to be placed today. Duration of therapy to be determined by bone biopsy results. Group B strep identified from stump abscess. DC Vanco and cefepime. Patient has a history of rash to amoxicillin but has tolerated cefepime. Transition to IV Rocephin 2 g twice daily. Resume minocycline to cover the right great toe osteomyelitis with staph epi. At least 2 weeks of IV therapy but up to 6 weeks if osteomyelitis of the BKA stump identified. Follow- up to clinic in 2 weeks. Check weekly labs to include CBC CMP sed rate and CRP. Time Spent With Patient Time: Total time spent is greater than 50% in coordination of care (as do cumented) at patient's floor/unit and/or counseling patient:
--- NOTE | 2020-12-19 07:11 | Internal Med Progress Note ---
SUBJECTIVE Subjective Patient information: Note initiated : 12/19/20 at 7:09 am Service Date, if different from initiated Date: [] Patient: Tarun Molian 50 y/o M admitted on 12/16/20 for bleeding from LLL amputation. Chief Complaint: [] Interval history: Mr. Molina is a 50 year old M Presents the ED with a left stump bleeding. 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 Patient states that the other day his was draining a serosanguineous fluid in his son that from time to time to do it necessary surprised him however today he started losing blood with some blood clots. He says he developed increased redness and tenderness to that leg as well. Says he had a fever several days ago but that broke. He had one episode of diarrhea yesterday and that resolved. He has a chronic dry cough which is high for months. No other pains or complaints. He has been following with Dr. Glover for the right great toe infection for which she is on minocycline for about a 6-month regimen it sounds like. He is also followed Dr. Whittington the artist representative. Last wound cultures we have of him are of the right foot which grew MSSA as well as some gram coag negative's 12/17 No overnight event or new complaints. No fever chills. Patient seen by surgery and will undergo I&D. 12/18 Occasional nausea but no other complaints or overnight events. Plan for debridement today or tomorrow. Followed by Dr. Glover. 12/19 No overnight event or new complaints. Has some nausea.'s plan for surgical debridement today. Awaiting final wound cultures. Review of Systems: denies headache/fever/chills/vomiting/chest or abdominal pain/co ugh/dyspnea/diarrhea. Otherwise see above. Constitutional Vitals: Vital Signs Temp Pulse Resp BP Pulse Ox 98.0 F 81 18 124/75 95 12/19/20 02:27 12/19/20 02:27 12/19/20 02:27 12/19/20 02:27 12/19/20 02:27 Period Temp Pulse Resp BP Sys/Garcia Pulse Ox Last 24 Hr 97.8 F-98.4 F 78-83 18-20 108-128/68-77 95-99 Intake and Output 12/18/20 12/19/20 12/19/20 21:59 05:59 13:59 Intake Total 804 500 Output Total 750 600 Balance 54 -100 Weight 128.14 kg Intake & Output: Intake & Output 12/18/20 12/19/20 12/19/20 21:59 05:59 13:59 Intake Total 804 500 Output Total 750 600 Balance 54 -100 Weight 128.14 kg Intake: IV 54 500 Cleocin 600 mg In Dextrose 5% 54 in Water 50 ml @ 100 mls/hr IV Q8H [facility] Rx#:[id number] Vancomycin 2,000 mg In Sodium 500 Chloride 0.9% 500 ml @ 250 mls/ hr IV Q12H [facility] Rx#:[id number] Oral 750 0 Output: Void Amount 750 600 Other: Meal Dinner Percent of Meal Consumed 25% Feeding Ability Independent Urine Appearance Clear Clear Urine Color Dark Bing Tea Colored Tea Colored Urine Odor Strong Normal # Emeses 0 Exam: General: Alert, Awake, No acute Distress, obese Eyes/N/T: EOMI, Head/Neck: neck supple, CV: RRR, No murmurs, Pulm: Clear b/l, no wheezing/rhonchi/rales Abd: soft, nontender, +BS x4 Ext: no clubbing/cyanosis/edema to RLE. LLE BKA with dressing in place, inner thigh erythematous/tender to touch improved Neuro: Alert, no focal deficits, moves all extremities, decreased sensations b/l LE chronic Skin: warm/dry OBJ DATA Labs CBC & Chem 7: 12/18/20 05:33 12/18/20 05:33 Labs: Abnormal Lab Results 12/18/20 12/18/20 12/18/20 19:25 05:33 05:33 WBC 4.1 L RBC 2.89 L Hgb 10.0 L Hct 29.3 L MCV 101.4 H MCH 34.6 H Plt Count 75 L MPV 12.1 H Lymph # (Auto) 0.72 L Seg Neutrophils % Lymphocytes % Platelet Estimate RBC Morphology Polychromasia Macrocytosis PT INR Sodium Anion Gap Creatinine Glucose Uric Acid Calcium Total Bilirubin Direct Bilirubin Lactate Dehydrogenase C-Reactive Protein Albumin Globulin Albumin/Globulin Ratio Procalcitonin 0.32 H Urine Glucose (UA) 150 A Urine Urobilinogen 4.0 A 12/18/20 12/17/20 12/17/20 05:33 05:14 05:14 WBC RBC 2.79 L Hgb 9.7 L Hct 28.4 L MCV 101.8 H MCH 34.8 H Plt Count 62 L MPV 11.8 H Lymph # (Auto) 0.84 L Seg Neutrophils % Lymphocytes % Platelet Estimate RBC Morphology Polychromasia Macrocytosis PT INR Sodium Anion Gap 6.0 L Creatinine 0.6 L 0.6 L Glucose 129 H 204 H Uric Acid 2.4 L Calcium 7.7 L 7.4 L Total Bilirubin 2.7 H Direct Bilirubin 1.6 H Lactate Dehydrogenase 238 H C-Reactive Protein 7.70 H Albumin 2.2 L Globulin 4.5 H Albumin/Globulin Ratio 0.5 L Procalcitonin Urine Glucose (UA) Urine Urobilinogen 12/16/20 12/16/20 12/16/20 16:55 16:55 16:55 WBC RBC 3.05 L Hgb 10.4 L Hct 30.6 L MCV 100.3 H MCH 34.1 H Plt Count 63 L MPV 11.3 H Lymph # (Auto) Seg Neutrophils % 80 H Lymphocytes % 12 L Platelet Estimate Decreased A RBC Morphology Abnormal A Polychromasia 1+ A Macrocytosis 1+ A PT 16.6 H INR 1.3 H Sodium Anion Gap Creatinine Glucose Uric Acid Calcium Total Bilirubin Direct Bilirubin Lactate Dehydrogenase C-Reactive Protein Albumin Globulin Albumin/Globulin Ratio Procalcitonin 0.55 H Urine Glucose (UA) Urine Urobilinogen 12/16/20 16:55 WBC RBC Hgb Hct MCV MCH Plt Count MPV Lymph # (Auto) Seg Neutrophils % Lymphocytes % Platelet Estimate RBC Morphology Polychromasia Macrocytosis PT INR Sodium 132 L Anion Gap Creatinine Glucose 242 H Uric Acid Calcium 7.7 L Total Bilirubin 3.3 H Direct Bilirubin Lactate Dehydrogenase C-Reactive Protein 11.10 H Albumin 2.5 L Globulin 4.7 H Albumin/Globulin Ratio 0.5 L Procalcitonin Urine Glucose (UA) Urine Urobilinogen Meds: Medications Acetaminophen (Tylenol) 650 mg PO Q6HP PRN PRN Reason: PAIN/FEVER > 101 Last Admin: 12/17/20 09:35 Dose: 650 mg Documented by: Hydrocodone Bitart/Acetaminophen (Sullivan 5/325mg) 1 tab PO Q6HP PRN; Protocol PRN Reason: Per Pain Protocol Albuterol/Ipratropium (Duoneb) 3 ml NEB Q4HP PRN PRN Reason: Shortness Of Breath Atorvastatin Calcium (Lipitor) 20 mg PO DAILY [facility] Last Admin: 12/18/20 11:24 Dose: 20 mg Documented by: Cefepime HCl (Maxipime) 2 gm IV Q12H [facility]; Protocol Last Admin: 12/18/20 21:59 Dose: 2 gm Documented by: Dextrose (Dextrose 50%) 0 ml IV UD PRN PRN Reason: Hypoglycemia Diagnostic Test (Pha) (Accu-Chek) 1 each FS [facility] Last Admin: 12/18/20 21:58 Dose: 1 each Documented by: Docusate Sodium (Colace) 100 mg PO BID [facility] Last Admin: 12/18/20 21:59 Dose: Not Given Documented by: Glucose (Insta-Glucose) 15 gm PO PRN PRN PRN Reason: Hypoglycemia Heparin Sodium (Porcine) (Heparin 10 Units/Ml Flush) 2 ml IV Q12 [facility] Last Admin: 12/18/20 22:02 Dose: Not Given Documented by: Potassium Chloride 40 meq/ (Dextrose) 520 mls @ 130 mls/hr IV UD PRN PRN Reason: Potassium < 3 Magnesium Sulfate (Magnesium Sulfate) 2 gm in 50 mls @ 50 mls/hr IV UD PRN PRN Reason: Magnesium </= 1.6 Last Infusion: 12/17/20 11:09 Dose: Infused Documented by: Vancomycin HCl 2,000 mg/ (Sodium Chloride) 500 mls @ 250 mls/hr IV Q12H [facility] Last Infusion: 12/19/20 05:27 Dose: Infused Documented by: Insulin Glargine (Lantus) 70 unit SQ BID [facility] Last Admin: 12/18/20 21:58 Dose: 70 units Documented by: Insulin Human Lispro (Humalog) 0 unit SQ [facility]; Protocol Last Admin: 12/18/20 21:58 Dose: 6 units Documented by: Lactobacillus Rhamnosus (Culturelle) 1 cap PO BID [facility] Last Admin: 12/18/20 21:59 Dose: 1 cap Documented by: Methocarbamol (Robaxin) 750 mg PO HS [facility] Last Admin: 12/18/20 21:59 Dose: 750 mg Documented by: Ondansetron HCl (Zofran) 4 mg IV Q4HP PRN PRN Reason: Nausea And Vomiting Last Admin: 12/19/20 02:38 Dose: 4 mg Documented by: Phenyltoloxamine Citr/Acetaminophen (Tylenol Pm) 2 tab PO HS PRN PRN Reason: Sleep Polyethylene Glycol (Miralax) 17 gm PO DAILYP PRN PRN Reason: Constipation Potassium Chloride (Kdur) 40 meq PO UD PRN PRN Reason: Potssium is 3-3.5 Potassium Chloride (Kdur) 40 meq PO UD PRN PRN Reason: Potassium < 3 Ropinirole HCl (Requip) 2 mg PO HS [facility] Last Admin: 12/18/20 21:59 Dose: 2 mg Documented by: Scopolamine (Transderm-Scop) 1 patch TOPICAL PREOP PRN PRN Reason: Nausea And Vomiting Senna (Senokot) 2 tab PO DAILYP PRN PRN Reason: Constipation Sertraline HCl (Zoloft) 25 mg PO HS [facility] Last Admin: 12/18/20 21:59 Dose: 25 mg Documented by: Sodium Chloride (Saline Flush) 10 ml IV Q8 [facility] Last Admin: 12/19/20 05:27 Dose: 10 ml Documented by: Sodium Chloride (Saline Flush) 10 ml IV UD PRN PRN Reason: FLUSH Sodium Chloride (Saline Flush) 10 ml IV Q12 [facility] Last Admin: 12/18/20 22:01 Dose: 10 ml Documented by: Vancomycin HCl (Vancomycin Per Pharmacy) 1 order IV UD [facility]; Protocol A/P Narrative A/P Narrative: Assessment: *Left BKA stump cellulitis w/Abscess/gas & Bleeding: -wound cxs growing strep agalactiae prelim *Right great toe osteomyelitis: Being treated with extended course of minocycline by Dr. Glover -Also following with Dr. Whittington *Mild Hyponatremia: corrected is 134 on admit. is on HCTZ -improved *Cirrhosis w/thrombocytopenia: has had extensive w/u to determine etiology in past but likely etoh -Was on Lasix/Aldactone but says those stopped working and so he is on hydrochlorothiazide -baseline plt ~60 *Anemia, chronic: *Obesity: Plan: -cefepime/vanco, pending WC/BC -Dr. Mitchell for debridement -Dr. Glover following -wound care -basal and SSI -hold hctz for now -pt/ot -ppx: right leg scd, chemical initially for bleeding stump, likely start lovenox tomorrow (I&D today) full code Time Spent With Patient Time: Total time spent is greater than 50% in coordination of care (as documented) at patient's floor/unit and/or counseling patient: QUALITY Stroke Symptom Onset Unknown: No VTE Deep Vein Thrombosis/Pulmonary Embolism Present on Admission: No
[2020-12-19] MEDS: INSULIN LISPRO 1 UNIT/0.01 ML UNIT SQ SCH ×4 (07:27→21:14)
[2020-12-19] MEDS: DOCUSATE SODIUM 100 MG CAPSULE PO SCH ×2 (08:52→21:04)
[2020-12-19] MEDS: LACTOBACILLUS 1 CAPSULE PO SCH ×2 (08:52→21:05)
[2020-12-19] MEDS: ATORVASTATIN 20 MG TABLET PO SCH (08:53)
[2020-12-19] MEDS: INSULIN GLARGINE, HUMAN 1 UNIT/0.01 ML SQ SCH ×2 (08:53→21:14)
[2020-12-19] MEDS: CEFEPIME 2 GM VIAL IV SCH ×2 (09:04→21:15)
[2020-12-19] MEDS ORDERED: KETAMINE 100 MG/ML ML ONE (13:25)
[2020-12-19] MEDS ORDERED: TRANEXAMIC ACID 1,000 MG/10 ML VIAL IV ONE (13:25)
[2020-12-19] MEDS ORDERED: ONDANSETRON 4 MG/2 ML VIAL ONE (13:25)
[2020-12-19] MEDS ORDERED: PROPOFOL 200 MG/20 ML VIAL IV ONE (13:25)
[2020-12-19] MEDS ORDERED: LIDOCAINE HCL/PF 100 MG/5 ML SYRINGE IV ONE (13:25)
[2020-12-19] MEDS ORDERED: GLYCOPYRROLATE 0.2 MG/ML VIAL IV ONE (13:25)
[2020-12-19] MEDS ORDERED: MIDAZOLAM 5 MG/5 ML VIAL ONE (13:25)
[2020-12-19] MEDS ORDERED: MAGNESIUM SULFATE 2 GM/50 ML BAG IV ONE (13:25)
[2020-12-19] MEDS ORDERED: DEXAMETHASONE 10 MG/ML VIAL ONE (13:25)
[2020-12-19] MEDS ORDERED: fentaNYL 100 MCG/2 ML VIAL IV ONE (13:25)
[2020-12-19] MEDS ORDERED: PHENYLEPHRINE 10 MG/ML VIAL ONE (13:25)
[2020-12-19] MEDS ORDERED: ONDANSETRON 4 MG/2 ML VIAL IV PRN (14:35)
[2020-12-19] MEDS ORDERED: BENZOCAINE/MENTHOL 1 LOZENGE PO PRN (14:35)
[2020-12-19] MEDS ORDERED: fentaNYL 100 MCG/2 ML VIAL IV PRN (14:35)
[2020-12-19] MEDS ORDERED: IPRATROPIUM/ALBUTEROL 3 ML AMPUL.NEB NEB PRN (14:35)
[2020-12-19] MEDS ORDERED: ACETAMINOPHEN 1,000 MG/100 ML BAG IV ONE (14:35)
[2020-12-19] MEDS ORDERED: METHOCARBAMOL 1,000 MG/10 ML VIAL IV PRN (14:35)
[2020-12-19] MEDS ORDERED: MEPERIDINE 25 MG/ML SYRINGE IV PRN (14:35)
[2020-12-19] MEDS ORDERED: KETOROLAC 30 MG/ML VIAL IV PRN (14:35)
--- NOTE | 2020-12-19 14:43 | Brief Operative Note ---
Brief Operative Note Date of procedure: 12/19/20 Pre-op diagnosis: infected BK amputation Post-op diagnosis: same Procedure: revision BKA with bone biopsy and VAC Grafts/Implants: No Anesthesia: GETA Findings: exposed tibia Complications: none Surgeon: Dipak Mitchell Estimated blood loss (cc): 50 Tourniquet Time (Minutes): 40 Specimens Removed/Pathology: other (proximal bone biopsy and culture) Condition: stable Disposition: PACU
[2020-12-19] MEDS ORDERED: 0.9 % SODIUM CHLORIDE 1,000 ML IV SCH (14:45)
[2020-12-19] MEDS ORDERED: LACTATED RINGERS 1,000 ML IV SCH (14:45)
[2020-12-19] MEDS ORDERED: BUPIVACAINE 0.5% 50 ML VIAL IJ ONE (15:09)
--- NOTE | 2020-12-19 15:20 | XRay Report ---
CLINICAL INFORMATION: Picc line placement COMPARISON: 10/05/2020 FINDINGS: Moderate cardiomegaly show slight increase. PICC line tip is distal overlying the tricuspid valve plane. Mediastinum and pulmonary vessels are normal. Perihilar airspace disease likely reflects atelectasis. No effusion IMPRESSION: Moderate cardiomegaly. No acute disease The PICC line is distally placed - overlying tricuspid valve plane. Nurse was instructed to withdraw aligned 7.5 cm Interpreted and Authenticated by: Karthikeyan Dia 12/19/20
[2020-12-19] MEDS: morphine 2 MG/ML VIAL IV PRN ×2 (15:54→17:25)
[2020-12-19] MEDS ORDERED: NON FORMULARY MEDICATION 1 DOSE MISCELL (Accu-Chek 1 EACH) FS SCH (17:00)
[2020-12-19] MEDS ORDERED: INSULIN LISPRO 1 UNIT/0.01 ML UNIT SQ SCH (17:00)
[2020-12-19] MEDS: 0.9 % SODIUM CHLORIDE 1,000 ML IV SCH (17:25)
[2020-12-19] MEDS: HYDROcodone/APAP 10/325MG TABLET PO PRN (20:05)
[2020-12-19] MEDS: SERTRALINE 50 MG TABLET PO SCH (21:04)
[2020-12-19] MEDS: METHOCARBAMOL 750 MG TABLET PO SCH (21:05)
[2020-12-19] MEDS: rOPINIRole 1 MG TABLET PO SCH (21:05)
[2020-12-20] MEDS: HYDROcodone/APAP 10/325MG TABLET PO PRN ×3 (00:41→11:39)
[2020-12-20 06:34] LABS: Basophils # (Auto) 0.01 K/mcL (0.00-0.20); Basophils % (Auto) 0.2 % (0.0-2.0); Eosinophils # (Auto) 0 K/mcL (0.00-0.70); Eosinophils % (Auto) 0 % (0.0-7.0); Hemoglobin 10.6 g/dL (13.5-16.5); Lymphocytes % (Auto) 10.1 % (15.0-49.0); Mean Cell Volume 101.6 fL (80.0-100.0); Mean Corpuscular HGB Conc 34.2 g/dL (31.0-36.0); Mean Platelet Volume 11.6 fL (7.4-10.4); Monocytes # (Auto) 0.22 K/mcL (0.10-0.90); Monocytes % (Auto) 4.4 % (1.0-12.0); Neutrophils % (Auto) 85.3 % (38.0-78.0); Platelet Count 78 K/mcL (140-440); RBC 3.05 M/mcL (4.50-5.90); Red Cell Distribution Width 13.2 % (11.5-14.5)
[2020-12-20] MEDS: 0.9 % SODIUM CHLORIDE 1,000 ML IV SCH ×3 (06:35→21:52)
[2020-12-20] MEDS: 0.9 % SODIUM CHLORIDE 10 ML SYRINGE IV SCH ×5 (06:35→21:50)
[2020-12-20 07:04] LABS: Blood Urea Nitrogen 10 mg/dL (6-20); Calcium 7.9 mg/dL (8.6-10.4); Carbon Dioxide 26 mmol/L (22-30); Chloride 103 mmol/L (96-108); Glomerular Filtration Rate 109; Glucose 298 mg/dL (70-105)
--- NOTE | 2020-12-20 07:30 | Internal Med Progress Note ---
SUBJECTIVE Subjective Patient information: Note initiated : 12/20/20 at 7:26 am Service Date, if different from initiated Date: [] Patient: Tarun Molina a 50 y/o M admitted on 12/16/20 for bleeding from LLL amputation. Chief Complaint: [] Interval history: Mr. Molina is a 50 year old M Presents the ED with a left stump bleeding. 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 Patient states that the other day his was draining a serosanguineous fluid in his son that from time to time to do it necessary surprised him however today he started losing blood with some blood clots. He says he developed increased redness and tenderness to that leg as well. Says he had a fever several days ago but that broke. He had one episode of diarrhea yesterday and that resolved. He has a chronic dry cough which is high for months. No other pains or complaints. He has been following with Dr. Glover for the right great toe infection for which she is on minocycline for about a 6-month regimen it sounds like. He is also followed Dr. Whittington the middleware architect. Last wound cultures we have of him are of the right foot which grew MSSA as well as some gram coag negative's 12/17 No overnight event or new complaints. No fever chills. Patient seen by surgery and will undergo I&D. 12/18 Occasional nausea but no other complaints or overnight events. Plan for debridement today or tomorrow. Followed by Dr. Glover. 12/19 No overnight event or new complaints. Has some nausea.'s plan for surgical debridement today. Awaiting final wound cultures. 12/20 Status post revision of BKA yesterday. Wound VAC placed. Pending intraoperat adela cultures. Has headache but other argueta no new complaints. Review of Systems: Denies fever/chills/vomiting/chest or abdominal pain/cough/dyspnea/diarrhea. Otherwise see above. Constitutional Vitals: Vital Signs Temp Pulse Resp BP Pulse Ox 98.0 F 70 18 148/88 96 12/20/20 06:49 12/20/20 06:49 12/20/20 06:49 12/20/20 06:49 12/20/20 06:49 Period Temp Pulse Resp BP Sys/Garcia Pulse Ox Last 24 Hr 96.7 F-98.3 F 67-92 14-21 93-148/44-92 93-100 Intake and Output 12/19/20 12/20/20 12/20/20 21:59 05:59 13:59 Intake Total 3830 2100 Output Total 625 1400 Balance 3205 700 Weight 128.168 kg Intake & Output: Intake & Output 12/19/20 12/20/20 12/20/20 21:59 05:59 13:59 Intake Total 3830 2100 Output Total 625 1400 Balance 3205 700 Weight 128.168 kg Intake: IV 2100 500 Sodium Chloride 0.9% 1,000 ml @ 1000 50 mls/hr IV .Q20H [facility] Rx#: [id number] Lactated Ringers 1,000 ml @ 20 1000 mls/hr IV .Q24H [facility] Rx#: [id number] Vancomycin 2,000 mg In Sodium 500 Chloride 0.9% 500 ml @ 250 mls/ hr IV Q12H [facility] Rx#:[id number] Oral 180 1600 IV - Manual Only 1550 Output: Urine Catheter Amount 550 Straight 550 Void Amount 1400 Estimated Blood Loss 75 Other: Meal Nourishment/Supplement Percent of Meal Consumed 100% Feeding Ability Independent Urine Appearance Clear Clear Straight Clear Urine Color Dark Yellow Dark Yellow Straight Dark Bing Urine Odor Normal Normal Exam: General: Alert, Awake, No acute Distress, obese Eyes/N/T: EOMI, Head/Neck: neck supple, CV: RRR, No murmurs, Pulm: Clear b/l, no wheezing/rhonchi/rales Abd: soft, nontender, +BS x4 Ext: no clubbing/cyanosis/edema to RLE. LLE BKA with dressing in place Neuro: Alert, no focal deficits, moves all extremities, decreased sensations b/l LE chronic Skin: warm/dry OBJ DATA Labs CBC & Chem 7: 12/20/20 05:40 12/20/20 05:40 Labs: Abnormal Lab Results 12/20/20 12/20/20 12/18/20 05:40 05:40 19:25 WBC RBC 3.05 L Hgb 10.6 L Hct 31.0 L MCV 101.6 H MCH 34.8 H Plt Count 78 L MPV 11.6 H Neut % (Auto) 85.3 H Lymph % (Auto) 10.1 L Lymph # (Auto) 0.50 L Anion Gap 5.0 L Creatinine Glucose 298 H Calcium 7.9 L C-Reactive Protein Procalcitonin Urine Glucose (UA) 150 A Urine Urobilinogen 4.0 A 12/18/20 12/18/20 12/18/20 05:33 05:33 05:33 WBC 4.1 L RBC 2.89 L Hgb 10.0 L Hct 29.3 L MCV 101.4 H MCH 34.6 H Plt Count 75 L MPV 12.1 H Neut % (Auto) Lymph % (Auto) Lymph # (Auto) 0.72 L Anion Gap 6.0 L Creatinine 0.6 L Glucose 129 H Calcium 7.7 L C-Reactive Protein 7.70 H Procalcitonin 0.32 H Urine Glucose (UA) Urine Urobilinogen Meds: Medications Acetaminophen (Tylenol) 650 mg PO Q6HP PRN PRN Reason: PAIN/FEVER > 101 Last Admin: 12/17/20 09:35 Dose: 650 mg Documented by: Hydrocodone Bitart/Acetaminophen (Hydrocodone/Apap 10/325mg Tablet) 1 - 2 tab PO Q4HP PRN; Protocol PRN Reason: Per Pain Protocol Last Admin: 12/20/20 06:04 Dose: 1 tab Documented by: Albuterol/Ipratropium (Duoneb) 3 ml NEB Q4HP PRN PRN Reason: Shortness Of Breath Atorvastatin Calcium (Lipitor) 20 mg PO DAILY [facility] Last Admin: 12/19/20 08:53 Dose: Not Given Documented by: Cefepime HCl (Maxipime) 2 gm IV Q12H [facility]; Protocol Last Admin: 12/19/20 21:15 Dose: 2 gm Documented by: Dextrose (Dextrose 50%) 0 ml IV UD PRN PRN Reason: Hypoglycemia Diagnostic Test (Pha) (Accu-Chek) 1 each FS [facility] Last Admin: 12/19/20 21:04 Dose: 1 each Documented by: Docusate Sodium (Colace) 100 mg PO BID [facility] Last Admin: 12/19/20 21:04 Dose: 100 mg Documented by: Glucose (Insta-Glucose) 15 gm PO PRN PRN PRN Reason: Hypoglycemia Heparin Sodium (Porcine) (Heparin 10 Units/Ml Flush) 2 ml IV Q12 [facility] Last Admin: 12/19/20 21:19 Dose: 2 ml Documented by: Potassium Chloride 40 meq/ (Dextrose) 520 mls @ 130 mls/hr IV UD PRN PRN Reason: Potassium < 3 Magnesium Sulfate (Magnesium Sulfate) 2 gm in 50 mls @ 50 mls/hr IV UD PRN PRN Reason: Magnesium </= 1.6 Last Infusion: 12/17/20 11:09 Dose: Infused Documented by: Vancomycin HCl 2,000 mg/ (Sodium Chloride) 500 mls @ 250 mls/hr IV Q12H [facility] Last Infusion: 12/20/20 00:05 Dose: Infused Documented by: Sodium Chloride (Sodium Chloride 0.9%) 1,000 mls @ 75 mls/hr IV .[id number] [facility] Last Admin: 12/20/20 06:35 Dose: Not Given Documented by: Insulin Glargine (Lantus) 70 unit SQ BID [facility] Last Admin: 12/19/20 21:14 Dose: 70 units Documented by: Insulin Human Lispro (Humalog) 0 unit SQ [facility]; Protocol Last Admin: 12/19/20 21:14 Dose: 10 units Documented by: Lactobacillus Rhamnosus (Culturelle) 1 cap PO BID [facility] Last Admin: 12/19/20 21:05 Dose: 1 cap Documented by: Methocarbamol (Robaxin) 750 mg PO HS [facility] Last Admin: 12/19/20 21:05 Dose: 750 mg Documented by: Morphine Sulfate (Morphine) 2 - 6 mg IV Q1HP PRN; Protocol PRN Reason: Per Pain Protocol Last Admin: 12/19/20 17:25 Dose: 4 mg Documented by: Ondansetron HCl (Zofran) 4 mg IV Q4HP PRN PRN Reason: Nausea And Vomiting Last Admin: 12/19/20 07:31 Dose: 4 mg Documented by: Phenyltoloxamine Citr/Acetaminophen (Tylenol Pm) 2 tab PO HS PRN PRN Reason: Sleep Polyethylene Glycol (Miralax) 17 gm PO DAILYP PRN PRN Reason: Constipation Potassium Chloride (Kdur) 40 meq PO UD PRN PRN Reason: Potssium is 3-3.5 Potassium Chloride (Kdur) 40 meq PO UD PRN PRN Reason: Potassium < 3 Potassium Chloride (Kdur) 20 meq PO QAMCC [facility] Ropinirole HCl (Requip) 2 mg PO HS [facility] Last Admin: 12/19/20 21:05 Dose: 2 mg Documented by: Senna (Senokot) 2 tab PO DAILYP PRN PRN Reason: Constipation Sertraline HCl (Zoloft) 25 mg PO HS [facility] Last Admin: 12/19/20 21:04 Dose: 25 mg Documented by: Sodium Chloride (Saline Flush) 10 ml IV Q8 [facility] Last Admin: 12/20/20 06:35 Dose: Not Given Documented by: Sodium Chloride (Saline Flush) 10 ml IV UD PRN PRN Reason: FLUSH Sodium Chloride (Saline Flush) 10 ml IV Q12 [facility] Last Admin: 12/19/20 21:22 Dose: 10 ml Documented by: Vancomycin HCl (Vancomycin Per Pharmacy) 1 order IV UD [facility]; Protocol A/P Narrative A/P Narrative: Assessment: *Left BKA stump cellulitis w/Abscess/gas: s/p BKA Revision (12/19) -wound cxs growing strep agalactiae prelim *Right great toe osteomyelitis: Being treated with extended course of minocyc line by Dr. Glover -Also following with Dr. Whittington *Mild Hyponatremia: corrected is 134 on admit. is on HCTZ -improved *Cirrhosis w/thrombocytopenia: has had extensive w/u to determine etiology in past but likely etoh -Was on Lasix/Aldactone but says those stopped working and so he is on hy drochlorothiazide -baseline plt ~60 *Anemia, chronic: *Obesity: Plan: -Dr. Mitchell following -cefepime/vanco, pending surgical biopsies and final WCC -Dr. Glover following for final abx regimen -wound care -basal and SSI -restart hctz -pt/ot -CM for placement needs -ppx: lovenox full code Time Spent With Patient Time: Total time spent is greater than 50% in coordination of care (as documented) at patient's floor/unit and/or counseling patient: QUALITY Stroke Symptom Onset Unknown: No VTE Deep Vein Thrombosis/Pulmonary Embolism Present on Admission: No
[2020-12-20] MEDS: INSULIN LISPRO 1 UNIT/0.01 ML UNIT SQ SCH ×4 (07:54→22:09)
[2020-12-20] MEDS: HYDROCHLOROTHIAZIDE 12.5 MG CAPSULE PO SCH (08:20)
[2020-12-20] MEDS: LACTOBACILLUS 1 CAPSULE PO SCH ×2 (08:20→21:51)
[2020-12-20] MEDS: INSULIN GLARGINE, HUMAN 1 UNIT/0.01 ML SQ SCH ×2 (08:20→22:09)
[2020-12-20] MEDS: ATORVASTATIN 20 MG TABLET PO SCH (08:21)
[2020-12-20] MEDS: POTASSIUM CHLORIDE 20 MEQ TABLET PO SCH (08:21)
[2020-12-20] MEDS: DOCUSATE SODIUM 100 MG CAPSULE PO SCH ×2 (08:21→21:51)
--- NOTE | 2020-12-20 08:25 | Operative Note ---
DATE OF OPERATION: 12/19/2020 PREOPERATIVE DIAGNOSIS: Failed left [id number] amputation. POSTOPERATIVE DIAGNOSIS: Failed left [id number] amputation. PROCEDURE: Revision left iemgh-[id number] amputation. SURGEON: Dipak Mitchell M.D. DE ICER INSTALLER: Benny Sharif PA-C. This providers expertise and technical skill were required throughout the case. The JF assisted with preoperative coordination, intraoperative retraction, wound closure, and dressing and splint application, as well as postoperative documentation and care coordination. ANESTHESIA: General done by Wiley Tello CRNA TOURNIQUET TIME: 30-40 minutes. SUMMARY OF PROCEDURE: General anesthesia was obtained. The left leg was prepped and draped. The patient had exposed bone over the distal intersew of his previous amputation done elsewhere. We took an ellipse of bone out from the anterior soft tissue, probably 8 cm in length in the middle. This included two areas of ulceration. The incision was taken down to the bone. The bone was osteotomized above the area of exposed bone and the tibial height was identified under mini C-arm. The fibula was already cut above this height. An anterior bevel was then cut. A curettage was then done of the remaining bone. This was sent for both biopsy and culture and labeled as proximal bone. A myodesis was done using two drill holes anteriorly. Through each hole, a suture of 0 Vicryl was passed and this was then sewn to the superficial posterior fascia. These knots were then tied with the flap reduced anteriorly. After thorough irrigation, the incision was closed using 0 Vicryl in the deep layers and mattress sutures of #1 Prolene on the subcutaneous tissue and skin. This was then followed by the application of a wound VAC, which was confirmed to be working. Finally, a knee immobilizer was placed, set at 0-60 degrees. The sponge and needle count was correct. The patient tolerated the procedure well and was taken to the recovery room in stable condition. TJF:kh Job ID: [id number] Doc ID: [id number] Dipak Mitchell MD
[2020-12-20] MEDS: CEFEPIME 2 GM VIAL IV SCH ×2 (08:32→21:51)
[2020-12-20] MEDS ORDERED: HYDROCHLOROTHIAZIDE 12.5 MG PO SCH (09:00)
[2020-12-20] MEDS: VANCOMYCIN 2,000 MG in 0.9 % SODIUM CHLORIDE 500 ML IV SCH ×2 (09:16→22:09)
[2020-12-20] MEDS: ENOXAPARIN 40 MG/0.4 ML SYRINGE SQ SCH (09:40)
--- NOTE | 2020-12-20 12:10 | Internal Med Progress Note ---
SUBJECTIVE Subjective Patient information: Note initiated : 12/20/20 at 12:06 pm Service Date, if different from initiated Date: [] Patient: Tarun Molina a 50 y/o M admitted on 12/16/20 for bleeding from LLL amputation. Chief Complaint: [] Interval history: Mr. Molina is a 50 year old M Presents the ED with a left stump bleeding. 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 Patient states that the other day he noticed the BKA site was draining serosanguineous fluid. He says he developed increased redness and tenderness to that leg as well and had a fever several days prior. He had one episode of diarrhea at about that time that resolved. He has a chronic dry cough which present for months. No other pains or complaints. He has been following with Dr. Glover for the right great toe infection for which she was on minocycline for about a 6-month regimen it sounds like. He is also followed Dr. Whittington, the brim ironer hand. Last wound cultures we have of him are of the right foot which grew MSSA as well as some gram coag negative's 12/17 No overnight event or new complaints. No fever chills. Patient seen by surgery and will undergo I&D. 12/18 Occasional nausea but no other complaints or overnight events. Plan for debridement today or tomorrow. Followed by Dr. Glover. 12/19 No overnight event or new complaints. Has some nausea.'s plan for surgical debridement today. Awaiting final wound cultures. 12/20 Status post revision of BKA yesterday. Wound VAC placed. Pending intraoperative cultures. Has headache but other argueta no new complaints. 12/21 No complaints this morning. Discussed discharge planning-the patient refuses to go to a SNF including out of the area. Likely discharge to home with his as primary home caregiver. Apparently home health will not do visitations at his house because he lives in a trailer and care must be done outside due to space constraints. Current plan is to discharge to home (likely Wednesday) with IV antibiotics (per ID) via PICC and wound care. IV antibiotics will likely be given at the infusion center. Review of Systems: Denies fever/chills/vomiting/chest or abdominal pain/cough/dyspnea/diarrhea. Otherwise see above. Constitutional Vitals: Vital Signs Temp Pulse Resp BP Pulse Ox 98.0 F 70 18 148/88 96 12/20/20 06:49 12/20/20 06:49 12/20/20 07:56 12/20/20 06:49 12/20/20 07:56 Period Temp Pulse Resp BP Sys/Garcia Pulse Ox Last 24 Hr 96.7 F-98.3 F 67-92 14-21 93-148/44-92 93-100 Intake and Output 12/19/20 12/20/20 12/20/20 21:59 05:59 13:59 Intake Total 3830 2100 240 Output Total 625 1400 350 Balance 3205 700 -110 Weight 128.168 kg Intake & Output: Intake & Output 12/19/20 12/20/20 12/20/20 21:59 05:59 13:59 Intake Total 3830 2100 240 Output Total 625 1400 350 Balance 3205 700 -110 Weight 128.168 kg Intake: IV 2100 500 Sodium Chloride 0.9% 1,000 ml @ 1000 50 mls/hr IV .Q20H [facility] Rx#: [id number] Lactated Ringers 1,000 ml @ 20 1000 mls/hr IV .Q24H [facility] Rx#: [id number] Vancomycin 2,000 mg In Sodium 500 Chloride 0.9% 500 ml @ 250 mls/ hr IV Q12H [facility] Rx#:[id number] Oral 180 1600 240 IV - Manual Only 1550 Output: Urine Catheter Amount 550 Straight 550 Void Amount 1400 350 Estimated Blood Loss 75 Other: Meal Nourishment/Supplement Breakfast Percent of Meal Consumed 100% 100% Feeding Ability Independent Urine Appearance Clear Clear Clear Straight Clear Urine Color Dark Yellow Dark Yellow Light Bing Straight Dark Bing Urine Odor Normal Normal Normal Stool Size Moderate Stool Color Brown Stool Consistency Soft # Emeses 0 Exam: General: Alert, Awake, No acute Distress, obese Eyes/N/T: EOMI, Head/Neck: neck supple, CV: RRR, No murmurs, Pulm: Clear b/l, no wheezing/rhonchi/rales Abd: soft, nontender, +BS x4 Ext: no clubbing/cyanosis/edema to RLE. LLE BKA with dressing in place Neuro: Alert, no focal deficits, moves all extremities, decreased sensations b/l LE chronic Skin: warm/dry OBJ DATA Labs CBC & Chem 7: 12/20/20 05:40 12/20/20 05:40 Labs: Abnormal Lab Results 12/20/20 12/20/20 12/18/20 05:40 05:40 19:25 WBC RBC 3.05 L Hgb 10.6 L Hct 31.0 L MCV 101.6 H MCH 34.8 H Plt Count 78 L MPV 11.6 H Neut % (Auto) 85.3 H Lymph % (Auto) 10.1 L Lymph # (Auto) 0.50 L Anion Gap 5.0 L Creatinine Glucose 298 H Calcium 7.9 L C-Reactive Protein Procalcitonin Urine Glucose (UA) 150 A Urine Urobilinogen 4.0 A 12/18/20 12/18/20 12/18/20 05:33 05:33 05:33 WBC 4.1 L RBC 2.89 L Hgb 10.0 L Hct 29.3 L MCV 101.4 H MCH 34.6 H Plt Count 75 L MPV 12.1 H Neut % (Auto) Lymph % (Auto) Lymph # (Auto) 0.72 L Anion Gap 6.0 L Creatinine 0.6 L Glucose 129 H Calcium 7.7 L C-Reactive Protein 7.70 H Procalcitonin 0.32 H Urine Glucose (UA) Urine Urobilinogen Meds: Medications Acetaminophen (Tylenol) 650 mg PO Q6HP PRN PRN Reason: PAIN/FEVER > 101 Last Admin: 12/17/20 09:35 Dose: 650 mg Documented by: Hydrocodone Bitart/Acetaminophen (Hydrocodone/Apap 10/325mg Tablet) 1 - 2 tab PO Q4HP PRN; Protocol PRN Reason: Per Pain Protocol Last Admin: 12/20/20 11:39 Dose: 1 tab Documented by: Albuterol/Ipratropium (Duoneb) 3 ml NEB Q4HP PRN PRN Reason: Shortness Of Breath Atorvastatin Calcium (Lipitor) 20 mg PO DAILY [facility] Last Admin: 12/20/20 08:21 Dose: 20 mg Documented by: Cefepime HCl (Maxipime) 2 gm IV Q12H [facility]; Protocol Last Admin: 12/20/20 08:32 Dose: 2 gm Documented by: Dextrose (Dextrose 50%) 0 ml IV UD PRN PRN Reason: Hypoglycemia Diagnostic Test (Pha) (Accu-Chek) 1 each FS ACHS [facility] Last Admin: 12/20/20 11:39 Dose: 1 each Documented by: Docusate Sodium (Colace) 100 mg PO BID [facility] Last Admin: 12/20/20 08:21 Dose: 100 mg Documented by: Enoxaparin Sodium (Enoxaparin 40 Mg/0.4 Ml Syringe) 40 mg SQ DAILY [facility] Last Admin: 12/20/20 09:40 Dose: 40 mg Documented by: Glucose (Insta-Glucose) 15 gm PO PRN PRN PRN Reason: Hypoglycemia Heparin Sodium (Porcine) (Heparin 10 Units/Ml Flush) 2 ml IV Q12 [facility] Last Admin: 12/20/20 08:23 Dose: 2 ml Documented by: Hydrochlorothiazide (Hydrochlorothiazide 12.5 Mg Capsule) 12.5 mg PO DAILY [facility] Last Admin: 12/20/20 08:20 Dose: 12.5 mg Documented by: Potassium Chloride 40 meq/ (Dextrose) 520 mls @ 130 mls/hr IV UD PRN PRN Reason: Potassium < 3 Magnesium Sulfate (Magnesium Sulfate) 2 gm in 50 mls @ 50 mls/hr IV UD PRN PRN Reason: Magnesium </= 1.6 Last Infusion: 12/17/20 11:09 Dose: Infused Documented by: Vancomycin HCl 2,000 mg/ (Sodium Chloride) 500 mls @ 250 mls/hr IV Q12H [facility] Last Admin: 12/20/20 09:16 Dose: 250 mls/hr Documented by: Sodium Chloride (Sodium Chloride 0.9%) 1,000 mls @ 75 mls/hr IV .[id number] [facility] Last Admin: 12/20/20 06:35 Dose: Not Given Documented by: Insulin Glargine (Lantus) 70 unit SQ BID [facility] Last Admin: 12/20/20 08:20 Dose: 70 units Documented by: Insulin Human Lispro (Humalog) 0 unit SQ [facility]; Protocol Last Admin: 12/20/20 11:38 Dose: 8 units Documented by: Lactobacillus Rhamnosus (Culturelle) 1 cap PO BID [facility] Last Admin: 12/20/20 08:20 Dose: 1 cap Documented by: Methocarbamol (Robaxin) 750 mg PO HS [facility] Last Admin: 12/19/20 21:05 Dose: 750 mg Documented by: Morphine Sulfate (Morphine) 2 - 6 mg IV Q1HP PRN; Protocol PRN Reason: Per Pain Protocol Last Admin: 12/19/20 17:25 Dose: 4 mg Documented by: Ondansetron HCl (Zofran) 4 mg IV Q4HP PRN PRN Reason: Nausea And Vomiting Last Admin: 12/19/20 07:31 Dose: 4 mg Documented by: Phenyltoloxamine Citr/Acetaminophen (Tylenol Pm) 2 tab PO HS PRN PRN Reason: Sleep Polyethylene Glycol (Miralax) 17 gm PO DAILYP PRN PRN Reason: Constipation Potassium Chloride (Kdur) 40 meq PO UD PRN PRN Reason: Potssium is 3-3.5 Potassium Chloride (Kdur) 40 meq PO UD PRN PRN Reason: Potassium < 3 Potassium Chloride (Potassium Chloride 20 Meq Tablet) [facility] Last Admin: 12/20/20 08:21 Dose: 20 meq Documented by: Ropinirole HCl (Requip) 2 mg PO [facility] Last Admin: 12/19/20 21:05 Dose: 2 mg Documented by: Senna (Senokot) 2 tab PO DAILYP PRN PRN Reason: Constipation Sertraline HCl (Zoloft) 25 mg PO [facility] Last Admin: 12/19/20 21:04 Dose: 25 mg Documented by: Sodium Chloride (Saline Flush) 10 ml IV Q8 [facility] Last Admin: 12/20/20 06:35 Dose: Not Given Documented by: Sodium Chloride (Saline Flush) 10 ml IV UD PRN PRN Reason: FLUSH Sodium Chloride (Saline Flush) 10 ml IV Q12 [facility] Last Admin: 12/20/20 09:18 Dose: 10 ml Documented by: Vancomycin HCl (Vancomycin Per Pharmacy) 1 order IV UD [facility]; Protocol A/P Assessment and plan (1) Osteomyelitis of great toe of right foot: Status: Acute Comment: He has been on minocycline for the past 6 weeks. Previous cultures have been MSSA and MRSE. This site has improved on 6 weeks of minocycline. I had anticipated 6 months of minocycline. Minocycline will resume today. (2) Cellulitis and abscess of left lower extremity: Status: Acute Comment: Tarun is a 50-year-old obese diabetic with underlying liver disease and thrombocytopenia. He has a history of left BKA requiring subsequent revision. Last revision completed approximately October. CT scan and MRI confirm fluid collection in the distal BKA stump. Dr. Mitchell plans to take the patient to the operating room today for debridement and bone biopsy. This will help confirm presence or absence of osteomyelitis. (3) Thrombocytopenia: Status: Acute Comment: History of liver disease. (4) Group B streptococcal infection: Status: Acute Comment: Currently day four IV Vanco and cefepime. Debridement planned today with bone biopsy. PICC line to be placed today. Duration of therapy to be determined by bone biopsy results. Group B strep identified from stump abscess. DC Vanco and cefepime. Patient has a history of rash to amoxicillin but has tolerated cef epime. Transition to IV Rocephin 2 g twice daily. Resume minocycline to cover the right great toe osteomyelitis with staph epi. At least 2 weeks of IV therapy but up to 6 weeks if osteomyelitis of the BKA stump identified. Follow- up to clinic in 2 weeks. Check weekly labs to include CBC CMP sed rate and CRP. Narrative A/P Narrative: Assessment: 50-year-old male with history notable for HTN, IDDM II, hx alcohol use disorder, cirrhosis (alcoholic liver disease?), chronic thrombocytopenia, hx of PUD, obesity, depression, osteomyelitis of right foot (treated with minocycline outpatient), left BKA c/b infection requiring multiple revision now admitted for left BKA stump cellulitis and s/p BKA revision on 12/19/2020. Elevated risk of underlying osteomyelitis as bone was reportedly visualized during BKA surgery. On IV antibiotics per ID-following all culture results. Anticipating discharge soon on IV abx, duration will depend on bone culture results (2 vs 6 weeks). Has PICC and wound VAC. *Left BKA stump cellulitis w/Abscess/gas: s/p BKA Revision (12/19) -wound cxs growing strep agalactiae prelim *Right great toe osteomyelitis: Being treated with extended course of minocycline by Dr. Glover -Also following with Dr. Whittington *Mild Hyponatremia: resolved *Cirrhosis w/thrombocytopenia: has had extensive w/u to determine etiology in past but likely etoh -Was on Lasix/Aldactone but says those stopped working and so he is on hydrochlorothiazide -baseline plt ~60 *Anemia, chronic: *Obesity: Plan: -Dr. Mitchell following -cefepime/vanco, pending surgical biopsies and final WCC -Dr. Glover following for final abx regimen -wound care -wean opioids -basal and SSI -continue hctz -pt/ot -CM for placement options but patient currently refusing -ppx: lovenox -Dispo: likely home with outpatient IV abx infusions via PICC and wound care follow up full code Time Spent With Patient Time: Total time spent is greater than 50% in coordination of care (as documented) at patient's floor/unit and/or counseling patient: 35 QUALITY Stroke Symptom Onset Unknown: No VTE Deep Vein Thrombosis/Pulmonary Embolism Present on Admission: No
--- NOTE | 2020-12-20 12:11 | Orthopedic Progress Note ---
SUBJECTIVE Subjective Patient information: Note initiated : 12/20/20 at 12:04 pm Service Date, if different from initiated Date: [] Patient: Tarun Molina 50 y/o M admitted on 12/16/20 for bleeding from LLL amputation. Chief Complaint: [] Patient is POD 1 from revision left BKA revision. He is doing well today and his pain is well controlled. He is experiencing no other new symptoms such as LAKE, C P, SOB, weakness, fever or any other acute symptoms. He is continuing his IV antibiotics per Dr. Glover. He will plan to go home and continue IV antibiotics on outpatient basis as he is refusing to go to a SNF. Constitutional Vitals: Vital Signs Temp Pulse Resp BP Pulse Ox 98.0 F 70 18 148/88 96 12/20/20 06:49 12/20/20 06:49 12/20/20 07:56 12/20/20 06:49 12/20/20 07:56 Period Temp Pulse Resp BP Sys/Garcia Pulse Ox Last 24 Hr 96.7 F-98.3 F 67-92 14-21 93-148/44-92 93-100 Intake and Output 12/19/20 12/20/20 12/20/20 21:59 05:59 13:59 Intake Total 3830 2100 240 Output Total 625 1400 350 Balance 3205 700 -110 Weight 282 lb 9 oz Intake & Output: Intake & Output 12/19/20 12/20/20 12/20/20 21:59 05:59 13:59 Intake Total 3830 2100 240 Output Total 625 1400 350 Balance 3205 700 -110 Weight 282 lb 9 oz Intake: IV 2100 500 Sodium Chloride 0.9% 1,000 ml @ 1000 50 mls/hr IV .Q20H [facility] Rx#: [id number] Lactated Ringers 1,000 ml @ 20 1000 mls/hr IV .Q24H [facility] Rx#: [id number] Vancomycin 2,000 mg In Sodium 500 Chloride 0.9% 500 ml @ 250 mls/ hr IV Q12H [facility] Rx#:[id number] Oral 180 1600 240 IV - Manual Only 1550 Output: Urine Catheter Amount 550 Straight 550 Void Amount 1400 350 Estimated Blood Loss 75 Other: Meal Nourishment/Supplement Breakfast Percent of Meal Consumed 100% 100% Feeding Ability Independent Urine Appearance Clear Clear Clear Straight Clear Urine Color Dark Yellow Dark Yellow Light Bing Straight Dark Bing Urine Odor Normal Normal Normal Stool Size Moderate Stool Color Brown Stool Consistency Soft # Emeses 0 OBJ DATA Labs CBC & Chem 7: 12/20/20 05:40 12/20/20 05:40 Labs: Abnormal Lab Results 12/20/20 12/20/20 12/18/20 05:40 05:40 19:25 WBC RBC 3.05 L Hgb 10.6 L Hct 31.0 L MCV 101.6 H MCH 34.8 H Plt Count 78 L MPV 11.6 H Neut % (Auto) 85.3 H Lymph % (Auto) 10.1 L Lymph # (Auto) 0.50 L Anion Gap 5.0 L Creatinine Glucose 298 H Calcium 7.9 L C-Reactive Protein Procalcitonin Urine Glucose (UA) 150 A Urine Urobilinogen 4.0 A 12/18/20 12/18/20 12/18/20 05:33 05:33 05:33 WBC 4.1 L RBC 2.89 L Hgb 10.0 L Hct 29.3 L MCV 101.4 H MCH 34.6 H Plt Count 75 L MPV 12.1 H Neut % (Auto) Lymph % (Auto) Lymph # (Auto) 0.72 L Anion Gap 6.0 L Creatinine 0.6 L Glucose 129 H Calcium 7.7 L C-Reactive Protein 7.70 H Procalcitonin 0.32 H Urine Glucose (UA) Urine Urobilinogen Meds: Medications Acetaminophen (Tylenol) 650 mg PO Q6HP PRN PRN Reason: PAIN/FEVER > 101 Last Admin: 12/17/20 09:35 Dose: 650 mg Documented by: Hydrocodone Bitart/Acetaminophen (Hydrocodone/Apap 10/325mg Tablet) 1 - 2 tab PO Q4HP PRN; Protocol PRN Reason: Per Pain Protocol Last Admin: 12/20/20 11:39 Dose: 1 tab Documented by: Albuterol/Ipratropium (Duoneb) 3 ml NEB Q4HP PRN PRN Reason: Shortness Of Breath Atorvastatin Calcium (Lipitor) 20 mg PO DAILY [facility] Last Admin: 12/20/20 08:21 Dose: 20 mg Documented by: Cefepime HCl (Maxipime) 2 gm IV Q12H [facility]; Protocol Last Admin: 12/20/20 08:32 Dose: 2 gm Documented by: Dextrose (Dextrose 50%) 0 ml IV UD PRN PRN Reason: Hypoglycemia Diagnostic Test (Pha) (Accu-Chek) 1 each FS ACHS [facility] Last Admin: 12/20/20 11:39 Dose: 1 each Documented by: Docusate Sodium (Colace) 100 mg PO BID [facility] Last Admin: 12/20/20 08:21 Dose: 100 mg Documented by: Enoxaparin Sodium (Enoxaparin 40 Mg/0.4 Ml Syringe) 40 mg SQ DAILY [facility] Last Admin: 12/20/20 09:40 Dose: 40 mg Documented by: Glucose (Insta-Glucose) 15 gm PO PRN PRN PRN Reason: Hypoglycemia Heparin Sodium (Porcine) (Heparin 10 Units/Ml Flush) 2 ml IV Q12 [facility] Last Admin: 12/20/20 08:23 Dose: 2 ml Documented by: Hydrochlorothiazide (Hydrochlorothiazide 12.5 Mg Capsule) 12.5 mg PO DAILY [facility] Last Admin: 12/20/20 08:20 Dose: 12.5 mg Documented by: Potassium Chloride 40 meq/ (Dextrose) 520 mls @ 130 mls/hr IV UD PRN PRN Reason: Potassium < 3 Magnesium Sulfate (Magnesium Sulfate) 2 gm in 50 mls @ 50 mls/hr IV UD PRN PRN Reason: Magnesium </= 1.6 Last Infusion: 12/17/20 11:09 Dose: Infused Documented by: Vancomycin HCl 2,000 mg/ (Sodium Chloride) 500 mls @ 250 mls/hr IV Q12H [facility] Last Admin: 12/20/20 09:16 Dose: 250 mls/hr Documented by: Sodium Chloride (Sodium Chloride 0.9%) 1,000 mls @ 75 mls/hr IV .[id number] [facility] Last Admin: 12/20/20 06:35 Dose: Not Given Documented by: Insulin Glargine (Lantus) 70 unit SQ BID [facility] Last Admin: 12/20/20 08:20 Dose: 70 units Documented by: Insulin Human Lispro (Humalog) 0 unit SQ [facility]; Protocol Last Admin: 12/20/20 11:38 Dose: 8 units Documented by: Lactobacillus Rhamnosus (Culturelle) 1 cap PO BID [facility] Last Admin: 12/20/20 08:20 Dose: 1 cap Documented by: Methocarbamol (Robaxin) 750 mg PO [facility] Last Admin: 12/19/20 21:05 Dose: 750 mg Documented by: Morphine Sulfate (Morphine) 2 - 6 mg IV Q1HP PRN; Protocol PRN Reason: Per Pain Protocol Last Admin: 12/19/20 17:25 Dose: 4 mg Documented by: Ondansetron HCl (Zofran) 4 mg IV Q4HP PRN PRN Reason: Nausea And Vomiting Last Admin: 12/19/20 07:31 Dose: 4 mg Documented by: Phenyltoloxamine Citr/Acetaminophen (Tylenol Pm) 2 tab PO HS PRN PRN Reason: Sleep Polyethylene Glycol (Miralax) 17 gm PO DAILYP PRN PRN Reason: Constipation Potassium Chloride (Kdur) 40 meq PO UD PRN PRN Reason: Potssium is 3-3.5 Potassium Chloride (Kdur) 40 meq PO UD PRN PRN Reason: Potassium < 3 Potassium Chloride (Potassium Chloride 20 Meq Tablet) [facility] Last Admin: 12/20/20 08:21 Dose: 20 meq Documented by: Ropinirole HCl (Requip) 2 mg PO [facility] Last Admin: 12/19/20 21:05 Dose: 2 mg Documented by: Senna (Senokot) 2 tab PO DAILYP PRN PRN Reason: Constipation Sertraline HCl (Zoloft) 25 mg PO [facility] Last Admin: 12/19/20 21:04 Dose: 25 mg Documented by: Sodium Chloride (Saline Flush) 10 ml IV Q8 [facility] Last Admin: 12/20/20 06:35 Dose: Not Given Documented by: Sodium Chloride (Saline Flush) 10 ml IV UD PRN PRN Reason: FLUSH Sodium Chloride (Saline Flush) 10 ml IV Q12 [facility] Last Admin: 12/20/20 09:18 Dose: 10 ml Documented by: Vancomycin HCl (Vancomycin Per Pharmacy) 1 order IV UD [facility]; Protocol A/P Assessment and plan (1) Below-knee amputation of left lower extremity with complication: Status: Acute Comment: POD 1 from left BKA irrigation and debridement and revision with secondary wound closure Patient's prevena filled with blood and patient was transferred to inpatient wound vac, will need to work on discharging with new prevena or outpatient wound vac Patient will continue IV antibiotics per Dr. Glover and hospitalist Hospitalist to continue to manage medicine and plan for discharge in next 1-2 days Follow up with Benny Sharif next Wednesday for wound vac removal and wound check Awaiting cultures and bone biopsy results Ortho signing off, if need for questions contact counter sales person provider. Time Spent With Patient Time: Total time spent is greater than 50% in coordination of care (as documented) at patient's floor/unit and/or counseling patient:
[2020-12-20] MEDS: rOPINIRole 1 MG TABLET PO SCH (21:51)
[2020-12-20] MEDS: METHOCARBAMOL 750 MG TABLET PO SCH (21:51)
[2020-12-20] MEDS: SERTRALINE 50 MG TABLET PO SCH (21:51)
[2020-12-21] MEDS: INSULIN LISPRO 1 UNIT/0.01 ML UNIT SQ SCH ×4 (07:19→20:38)
[2020-12-21] MEDS: POTASSIUM CHLORIDE 20 MEQ TABLET PO SCH (08:03)
[2020-12-21] MEDS: 0.9 % SODIUM CHLORIDE 10 ML SYRINGE IV SCH ×2 (08:04→20:41)
[2020-12-21] MEDS: ENOXAPARIN 40 MG/0.4 ML SYRINGE SQ SCH (08:04)
[2020-12-21] MEDS: LACTOBACILLUS 1 CAPSULE PO SCH ×2 (08:04→20:41)
[2020-12-21] MEDS: DOCUSATE SODIUM 100 MG CAPSULE PO SCH ×2 (08:04→20:41)
[2020-12-21] MEDS: HYDROCHLOROTHIAZIDE 12.5 MG CAPSULE PO SCH (08:04)
[2020-12-21] MEDS: ATORVASTATIN 20 MG TABLET PO SCH (08:04)
[2020-12-21] MEDS: CEFEPIME 2 GM VIAL IV SCH ×2 (08:12→21:46)
[2020-12-21] MEDS: 0.9 % SODIUM CHLORIDE 1,000 ML IV SCH ×2 (08:18→20:43)
[2020-12-21] MEDS: VANCOMYCIN 2,000 MG in 0.9 % SODIUM CHLORIDE 500 ML IV SCH ×2 (10:21→21:46)
[2020-12-21] MEDS: HYDROcodone/APAP 10/325MG TABLET PO PRN ×2 (10:30→20:43)
[2020-12-21] MEDS ORDERED: morphine 2 MG/ML VIAL IV PRN (10:41)
[2020-12-21] MEDS: INSULIN GLARGINE, HUMAN 1 UNIT/0.01 ML SQ SCH ×2 (11:09→20:38)
[2020-12-21] MEDS: SERTRALINE 50 MG TABLET PO SCH (20:40)
[2020-12-21] MEDS: METHOCARBAMOL 750 MG TABLET PO SCH (20:41)
[2020-12-21] MEDS: rOPINIRole 1 MG TABLET PO SCH (20:41)
[2020-12-22 06:20] LABS: Basophils # (Auto) 0.02 K/mcL (0.00-0.20); Basophils % (Auto) 0.5 % (0.0-2.0); Eosinophils # (Auto) 0.15 K/mcL (0.00-0.70); Eosinophils % (Auto) 3.5 % (0.0-7.0); Hematocrit 29.6 % (41.0-55.0); Hemoglobin 9.9 g/dL (13.5-16.5); Lymphocytes # (Auto) 1.44 K/mcL (1.50-4.80); Lymphocytes % (Auto) 33.3 % (15.0-49.0); Mean Cell Volume 103.1 fL (80.0-100.0); Mean Corpuscular HGB Conc 33.4 g/dL (31.0-36.0); Mean Platelet Volume 10.3 fL (7.4-10.4); Monocytes # (Auto) 0.32 K/mcL (0.10-0.90); Monocytes % (Auto) 7.4 % (1.0-12.0); Neutrophils % (Auto) 55.3 % (38.0-78.0); Platelet Count 75 K/mcL (140-440); RBC 2.87 M/mcL (4.50-5.90); Red Cell Distribution Width 13.7 % (11.5-14.5); WBC 4.3 K/mcL (4.5-11.0)
[2020-12-22 06:42] LABS: Blood Urea Nitrogen 9 mg/dL (6-20); Calcium 8.4 mg/dL (8.6-10.4); Carbon Dioxide 31 mmol/L (22-30); Chloride 104 mmol/L (96-108); Glomerular Filtration Rate 116; Glucose 77 mg/dL (70-105)
[2020-12-22] MEDS: INSULIN LISPRO 1 UNIT/0.01 ML UNIT SQ SCH ×4 (07:42→21:18)
[2020-12-22] MEDS: POTASSIUM CHLORIDE 20 MEQ TABLET PO SCH (08:16)
[2020-12-22] MEDS: HYDROCHLOROTHIAZIDE 12.5 MG CAPSULE PO SCH (08:16)
[2020-12-22] MEDS: DOCUSATE SODIUM 100 MG CAPSULE PO SCH ×2 (08:16→20:51)
[2020-12-22] MEDS: LACTOBACILLUS 1 CAPSULE PO SCH ×2 (08:16→20:51)
[2020-12-22] MEDS: INSULIN GLARGINE, HUMAN 1 UNIT/0.01 ML SQ SCH ×2 (08:16→21:09)
[2020-12-22] MEDS: ATORVASTATIN 20 MG TABLET PO SCH (08:16)
[2020-12-22] MEDS: ENOXAPARIN 40 MG/0.4 ML SYRINGE SQ SCH (08:17)
[2020-12-22] MEDS: 0.9 % SODIUM CHLORIDE 10 ML SYRINGE IV SCH ×2 (08:17→21:18)
[2020-12-22] MEDS: VANCOMYCIN 2,000 MG in 0.9 % SODIUM CHLORIDE 500 ML IV SCH ×2 (10:03→21:10)
[2020-12-22] MEDS: CEFEPIME 2 GM VIAL IV SCH ×2 (10:03→21:23)
--- NOTE | 2020-12-22 10:08 | Internal Med Progress Note ---
SUBJECTIVE Subjective Patient information: Note initiated : 12/22/20 at 10:05 am Service Date, if different from initiated Date: [] Patient: Tarun Molina a 50 y/o M admitted on 12/16/20 for bleeding from LLL amputation. Chief Complaint: [] Interval history: Mr. Molina is a 50 year old M Presents the ED with a left stump bleeding. 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 Patient states that the other day he noticed the BKA site was draining serosanguineous fluid. He says he developed increased redness and tenderness to that leg as well and had a fever several days prior. He had one episode of diarrhea at about that time that resolved. He has a chronic dry cough which present for months. No other pains or complaints. He has been following with Dr. Glover for the right great toe infection for which she was on minocycline for about a 6-month regimen it sounds like. He is also followed Dr. Whittington, the dehydrogenation converter helper. Last wound cultures we have of him are of the right foot which grew MSSA as well as some gram coag negative's 12/17 No overnight event or new complaints. No fever chills. Patient seen by surgery and will undergo I&D. 12/18 Occasional nausea but no other complaints or overnight events. Plan for debridement today or tomorrow. Followed by Dr. Glover. 12/19 No overnight event or new complaints. Has some nausea.'s plan for surgical debridement today. Awaiting final wound cultures. 12/20 Status post revision of BKA yesterday. Wound VAC placed. Pending intraoperative cultures. Has headache but other argueta no new complaints. 12/21 No complaints this morning. Discussed discharge planning-the patient refuses to go to a SNF including out of the area. Likely discharge to home with his as primary home caregiver. Apparently home health will not do visitations at his house because he lives in a trailer and care must be done outside due to space constraints. Current plan is to discharge to home (likely Wednesday) with IV antibiotics (per ID) via PICC and wound care. IV antibiotics will likely be given at the infusion center. 12/22 AM glucose 70-decrease lantus dose, otherwise no significant changes. The patient continues to refuse SNF, likely discharge to home tomorrow with IV antibiotics per ID. Review of Systems: Denies fever/chills/vomiting/chest or abdominal pain/cough/dyspnea/diarrhea. Otherwise see above. Constitutional Vitals: Vital Signs Temp Pulse Resp BP Pulse Ox 97.5 F 74 18 134/82 97 12/22/20 06:27 12/22/20 06:27 12/22/20 06:27 12/22/20 06:27 12/22/20 06:27 Period Temp Pulse Resp BP Sys/Garcia Pulse Ox Last 24 Hr 97.2 F-98.1 F 74-86 18-18 124-141/79-86 96-98 Intake and Output 12/21/20 12/22/20 12/22/20 21:59 05:59 13:59 Intake Total 980 240 Output Total 750 600 Balance -750 380 240 Weight 139.933 kg Intake & Output: Intake & Output 12/21/20 12/22/20 12/22/20 21:59 05:59 13:59 Intake Total 980 240 Output Total 750 600 Balance -750 380 240 Weight 139.933 kg Intake: IV 500 Sodium Chloride 0.9% 1,000 ml @ 0 75 mls/hr IV .[id number] [facility] Rx#: [id number] Vancomycin 2,000 mg In Sodium 500 Chloride 0.9% 500 ml @ 250 mls/ hr IV Q12H [facility] Rx#:[id number] Oral 480 240 Output: Void Amount 750 600 Other: Meal Breakfast Percent of Meal Consumed 100% Feeding Ability Independent Urine Appearance Clear Clear Clear Urine Color Bright Yellow Dark Yellow Light Bing Urine Odor Normal Strong Normal Exam: General: Alert, Awake, No acute Distress, obese Eyes/N/T: EOMI, Head/Neck: neck supple, CV: RRR, No murmurs, Pulm: Clear b/l, no wheezing/rhonchi/rales Abd: soft, nontender, +BS x4 Ext: no clubbing/cyanosis/ present edema in RLE. LLE BKA with dressing in place w/ wound VAC, RUE PICC Neuro: Alert, no focal deficits, moves all extremities, decreased sensations b/l LE chronic Skin: warm/dry OBJ DATA Labs CBC & Chem 7: 12/22/20 05:10 12/22/20 05:10 Labs: Abnormal Lab Results 12/22/20 12/22/20 12/20/20 05:10 05:10 05:40 WBC 4.3 L RBC 2.87 L Hgb 9.9 L Hct 29.6 L MCV 103.1 H MCH 34.5 H Plt Count 75 L MPV Neut % (Auto) Lymph % (Auto) Lymph # (Auto) 1.44 L Carbon Dioxide 31 H Anion Gap 3.0 L 5.0 L Creatinine 0.6 L Glucose 298 H Calcium 8.4 L 7.9 L 12/20/20 05:40 WBC RBC 3.05 L Hgb 10.6 L Hct 31.0 L MCV 101.6 H MCH 34.8 H Plt Count 78 L MPV 11.6 H Neut % (Auto) 85.3 H Lymph % (Auto) 10.1 L Lymph # (Auto) 0.50 L Carbon Dioxide Anion Gap Creatinine Glucose Calcium Meds: Medications Acetaminophen (Acetaminophen 325 Mg Tablet) 650 mg PO Q6HP PRN PRN Reason: PAIN/FEVER > 101 Last Admin: 12/17/20 09:35 Dose: 650 mg Documented by: Hydrocodone Bitart/Acetaminophen (Hydrocodone/Apap 10/325mg Tablet) 1 - 2 tab PO Q4HP PRN; Protocol PRN Reason: Per Pain Protocol Last Admin: 12/21/20 20:43 Dose: 1 tab Documented by: Albuterol/Ipratropium (Ipratropium/Albuterol 3 Ml Ampul.Neb) 3 ml NEB Q4HP PRN PRN Reason: Shortness Of Breath Atorvastatin Calcium (Atorvastatin 20 Mg Tablet) 20 mg PO DAILY [facility] Last Admin: 12/22/20 08:16 Dose: 20 mg Documented by: Cefepime HCl (Cefepime 2 Gm Vial) 2 gm IV Q12H [facility]; Protocol Last Admin: 12/22/20 10:03 Dose: 2 gm Documented by: Dextrose (Dextrose 50% 50 Ml Vial) 0 ml IV UD PRN PRN Reason: Hypoglycemia Diagnostic Test (Pha) (Accu-Chek 1 Each Strip) 1 each FS ACHS [facility] Last Admin: 12/22/20 08:15 Dose: 1 each Documented by: Docusate Sodium (Docusate Sodium 100 Mg Capsule) 100 mg PO BID [facility] Last Admin: 12/22/20 08:16 Dose: 100 mg Documented by: Enoxaparin Sodium (Enoxaparin 40 Mg/0.4 Ml Syringe) 40 mg SQ DAILY [facility] Last Admin: 12/22/20 08:17 Dose: Not Given Documented by: Glucose (Dextrose 31 Gm Oral.Susp) 15 gm PO PRN PRN PRN Reason: Hypoglycemia Heparin Sodium (Porcine) (Heparin Flush 10 Units/Ml 5 Ml Syringe) 2 ml IV Q12 [facility] Last Admin: 12/22/20 08:15 Dose: 2 ml Documented by: Hydrochlorothiazide (Hydrochlorothiazide 12.5 Mg Capsule) 12.5 mg PO DAILY [facility] Last Admin: 12/22/20 08:16 Dose: 12.5 mg Documented by: Potassium Chloride 40 meq/ (Dextrose) 520 mls @ 130 mls/hr IV UD PRN PRN Reason: Potassium < 3 Magnesium Sulfate (Magnesium Sulfate) 2 gm in 50 mls @ 50 mls/hr IV UD PRN PRN Reason: Magnesium </= 1.6 Last Infusion: 12/17/20 11:09 Dose: Infused Documented by: Vancomycin HCl 2,000 mg/ (Sodium Chloride) 500 mls @ 250 mls/hr IV Q12H [facility] Last Admin: 12/22/20 10:03 Dose: 250 mls/hr Documented by: Sodium Chloride (Sodium Chloride 0.9%) 1,000 mls @ 75 mls/hr IV .[id number] [facility] Last Infusion: 12/22/20 01:32 Dose: Infused Documented by: Insulin Glargine (Insulin Glargine, Human 1 Unit/0.01 Ml) 60 unit SQ BID [facility] Insulin Human Lispro (Insulin Lispro 1 Unit/0.01 Ml Unit) 0 unit SQ ACHS [facility]; Protocol Last Admin: 12/22/20 07:42 Dose: Not Given Documented by: Lactobacillus Rhamnosus (Lactobacillus 1 Capsule) 1 cap PO BID [facility] Last Admin: 12/22/20 08:16 Dose: 1 cap Documented by: Methocarbamol (Methocarbamol 750 Mg Tablet) 750 mg PO HS [facility] Last Admin: 12/21/20 20:41 Dose: 750 mg Documented by: Ondansetron HCl (Ondansetron 4 Mg/2 Ml Vial) 4 mg IV Q4HP PRN PRN Reason: Nausea And Vomiting Last Admin: 12/19/20 07:31 Dose: 4 mg Documented by: Polyethylene Glycol (Polyethylene Glycol 3350 17 Gm Packet) 17 gm PO DAILY [facility] Potassium Chloride (Potassium Chloride 20 Meq Tablet) 40 meq PO UD PRN PRN Reason: Potassium < 3 Potassium Chloride (Potassium Chloride 20 Meq Tablet) 20 meq PO QAMCC [facility] Last Admin: 12/22/20 08:16 Dose: 20 meq Documented by: Ropinirole HCl (Ropinirole 1 Mg Tablet) 2 mg PO [facility] Last Admin: 12/21/20 20:41 Dose: 2 mg Documented by: Senna (Sennosides 1 Tablet) 2 tab PO BID [facility] Sertraline HCl (Sertraline 50 Mg Tablet) 25 mg PO [facility] Last Admin: 12/21/20 20:40 Dose: 25 mg Documented by: Sodium Chloride (0.9 % Sodium Chloride 10 Ml Syringe) 10 ml IV UD PRN PRN Reason: FLUSH Sodium Chloride (0.9 % Sodium Chloride 10 Ml Syringe) 10 ml IV Q12 [facility] Last Admin: 12/22/20 08:17 Dose: Not Given Documented by: Vancomycin HCl (Vancomycin Per Pharmacy) 1 order IV UD [facility]; Protocol A/P Assessment and plan (1) Osteomyelitis of great toe of right foot: Status: Acute Comment: He has been on minocycline for the past 6 weeks. Previous cultures have been MSSA and MRSE. This site has improved on 6 weeks of minocycline. I had an ticipated 6 months of minocycline. Minocycline will resume today. (2) Cellulitis and abscess of left lower extremity: Status: Acute Comment: Tarun is a 50-year-old obese diabetic with underlying liver disease and thrombocytopenia. He has a history of left BKA requiring subsequent revision. Last revision completed approximately August. CT scan and MRI confirm fluid collection in the distal BKA stump. Dr. Mitchell plans to take the patient to the operating room today for debridement and bone biopsy. This will help confirm presence or absence of osteomyelitis. (3) Thrombocytopenia: Status: Acute Comment: History of liver disease. (4) Group B streptococcal infection: Status: Acute Comment: Currently day four IV Vanco and cefepime. Debridement planned today with bone biopsy. PICC line to be placed today. Duration of therapy to be determined by bone biopsy results. Group B strep identified from stump abscess. DC Vanco and cefepime. Patient has a history of rash to amoxicillin but has tolerated cefepime. Transition to IV Rocephin 2 g twice daily. Resume minocycline to cover the right great toe osteomyelitis with staph epi. At least 2 weeks of IV therapy but up to 6 weeks if osteomyelitis of the BKA stump identified. Follow- up to clinic in 2 weeks. Check weekly labs to include CBC CMP sed rate and CRP. Narrative A/P Narrative: Assessment: 50-year-old male with history notable for HTN, IDDM II, hx alcohol use disorder, cirrhosis (alcoholic liver disease?), chronic thrombocytopenia, hx of PUD, obesity, depression, osteomyelitis of right foot (treated with minocycline outpatient), left BKA c/b infection requiring multiple revision now admitted for left BKA stump cellulitis and s/p BKA revision on 12/19/2020. Elevat ed risk of underlying osteomyelitis as bone was reportedly visualized during BKA surgery. On IV antibiotics per ID-following all culture results. Anticipating discharge soon on IV abx, duration will depend on bone culture results (2 vs 6 weeks). Has PICC and wound VAC. *Left BKA stump cellulitis w/Abscess/gas: s/p BKA Revision (12/19) -wound cxs growing strep agalactiae prelim *Right great toe osteomyelitis: Being treated with extended course of minocycline by Dr. Glover -Also following with Dr. 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 Mitchell following -cefepime/vanco, pending surgical biopsies and final WCC -Dr. Glover following for final abx regimen -wound care -wean opioids -decrease lantus 70->60 units BID and continue SSI. -check hgb A1C -continue hctz for now-[facility]-I might be better choice w/ DM but better done by PCP w/ close followup -pt/ot -CM for placement options but patient currently refusing -ppx: lovenox -Dispo: likely home with outpatient IV abx infusions via PICC and wound care follow up full code Time Spent With Patient Time: Total time spent is greater than 50% in coordination of care (as documented) at patient's floor/unit and/or counseling patient: QUALITY Stroke Symptom Onset Unknown: No VTE Deep Vein Thrombosis/Pulmonary Embolism Present on Admission: No
[2020-12-22] MEDS: 0.9 % SODIUM CHLORIDE 1,000 ML IV SCH (10:41)
[2020-12-22] MEDS: SENNOSIDES 1 TABLET PO SCH ×2 (10:53→20:52)
[2020-12-22] MEDS: POLYETHYLENE GLYCOL 3350 17 GM PACKET PO SCH (10:53)
[2020-12-22] MEDS: SERTRALINE 50 MG TABLET PO SCH (20:51)
[2020-12-22] MEDS: rOPINIRole 1 MG TABLET PO SCH (20:51)
[2020-12-22] MEDS: METHOCARBAMOL 750 MG TABLET PO SCH (20:52)
[2020-12-22] MEDS ORDERED: SENNOSIDES/DOCUSATE SODIUM 1 TAB TABLET PO SCH (21:00)
[2020-12-23 06:40] LABS: Basophils # (Auto) 0.02 K/mcL (0.00-0.20); Basophils % (Auto) 0.5 % (0.0-2.0); Eosinophils # (Auto) 0.11 K/mcL (0.00-0.70); Eosinophils % (Auto) 2.8 % (0.0-7.0); Hematocrit 29.5 % (41.0-55.0); Hemoglobin 10.1 g/dL (13.5-16.5); Lymphocytes # (Auto) 0.95 K/mcL (1.50-4.80); Lymphocytes % (Auto) 23.8 % (15.0-49.0); Mean Cell Volume 101.4 fL (80.0-100.0); Mean Corpuscular HGB Conc 34.2 g/dL (31.0-36.0); Mean Platelet Volume 11.6 fL (7.4-10.4); Monocytes # (Auto) 0.33 K/mcL (0.10-0.90); Monocytes % (Auto) 8.3 % (1.0-12.0); Neutrophils % (Auto) 64.6 % (38.0-78.0); Platelet Count 79 K/mcL (140-440); RBC 2.91 M/mcL (4.50-5.90); Red Cell Distribution Width 13.4 % (11.5-14.5)
[2020-12-23] MEDS: INSULIN LISPRO 1 UNIT/0.01 ML UNIT SQ SCH ×2 (07:37→11:37)
[2020-12-23 07:47] LABS: Estimated Average Glucose(eAG) 148 mg/dL; Hemoglobin A1C 6.8 % Hgb (4.0-6.0)
[2020-12-23] MEDS: 0.9 % SODIUM CHLORIDE 10 ML SYRINGE IV SCH (08:07)
[2020-12-23] MEDS: POTASSIUM CHLORIDE 20 MEQ TABLET PO SCH (08:20)
[2020-12-23] MEDS: SENNOSIDES 1 TABLET PO SCH (08:20)
[2020-12-23] MEDS: HYDROCHLOROTHIAZIDE 12.5 MG CAPSULE PO SCH (08:20)
[2020-12-23] MEDS: LACTOBACILLUS 1 CAPSULE PO SCH (08:20)
[2020-12-23] MEDS: DOCUSATE SODIUM 100 MG CAPSULE PO SCH (08:20)
[2020-12-23] MEDS: INSULIN GLARGINE, HUMAN 1 UNIT/0.01 ML SQ SCH (08:21)
[2020-12-23] MEDS: ATORVASTATIN 20 MG TABLET PO SCH (08:22)
[2020-12-23] MEDS: ENOXAPARIN 40 MG/0.4 ML SYRINGE SQ SCH (08:22)
[2020-12-23] MEDS: POLYETHYLENE GLYCOL 3350 17 GM PACKET PO SCH (08:22)
[2020-12-23 08:39] LABS: Blood Urea Nitrogen 9 mg/dL (6-20); Calcium 8.7 mg/dL (8.6-10.4); Carbon Dioxide 30 mmol/L (22-30); Chloride 101 mmol/L (96-108); Glomerular Filtration Rate 116; Glucose 166 mg/dL (70-105)
[2020-12-23] MEDS ORDERED: MINOCYCLINE 100 MG CAPSULE PO SCH (09:00)
[2020-12-23] MEDS ORDERED: cefTRIAXone 2 GM in DEXTROSE 5% IN WATER 50 ML IV SCH (09:00)
--- NOTE | 2020-12-23 10:17 | Discharge Summary ---
Discharge Provider Provider Patient information: Note initiated : 12/23/20 at 10:05 am Service Date, if different from initiated Date: [] Patient: Tarun Molina 50 y/o M admitted on 12/16/20 for bleeding from LLL amputation. Chief Complaint: [nonhealing wound] Date of admission: 12/16/20 21:20 Discharge date: 12/23/20 Primary care physician: LINDSAY Olvera Consults: 12/16/20 Consult to Physician [CONS] Stat Comment: Consulting Provider: Colt Plunkett Reason For Exam: Physician to Consult Consult to Physician [CONS] Stat Comment: Consulting Provider: Austin Kraus Reason For Exam: Physician to Consult 12/17/20 09:07 Consult to Physician [CONS] Routine Comment: left stump infection Consulting Provider: Sotero Glover Reason For Exam: Physician to Consult Discharge Meds Discharge Medications Home Medications Accu-Chek 1 each FS ACHS strip 02/23/20 [Rx Confirmed 12/16/20 Last Taken 12/16/20 22:03] acetaminophen-codeine 1 tab PO Q4 PRN 03/10/20 [History Confirmed 12/16/20 Last Taken 12/16/20 12:00] Lantus Solostar U-100 Insulin 70 unit SUBCUT BID 04/29/20 [History Confirmed 12/16/20 Last Taken 12/16/20 09:00] methocarbamol 750 mg PO HS 04/29/20 [History Confirmed 12/16/20 Last Taken 12/15/20 21:00] diphenhydramine-acetaminophen [Tylenol PM Extra Strength] 2 tab PO HS PRN 10/03/20 [History Confirmed 12/16/20 Last Taken 12/14/20 21:00] insulin lispro [Humalog U-100 Insulin] 1 - 20 sliding scale dose SUBCUT ACHS 10/03/20 [History Confirmed 12/16/20 Last Taken 12/16/20 18:00] hydrochlorothiazide 12.5 mg PO DAILY 12/16/20 [History Confirmed 12/16/20 Last Taken 12/16/20 09:00] minocycline 100 mg PO BID 12/16/20 [History Confirmed 12/16/20 Last Taken 12/16/20 17:00] ropinirole 2 mg PO HS 12/16/20 [History Confirmed 12/16/20 Last Taken 12/15/20 21:00] sertraline 25 mg PO HS 12/16/20 [History Confirmed 12/17/20 Last Taken 12/16/20 09:00] atorvastatin 20 mg PO DAILY 12/17/20 [History Confirmed 12/17/20 Last Taken Unknown] potassium chloride 20 meq PO DAILY 12/17/20 [History Confirmed 12/17/20 Last Taken Unknown] ceftriaxone 2 g IV DAILY 35 Days ea 12/23/20 [Rx Last Taken Unknown] COURSE Hospital Course Hospital course: 50-year-old male with history notable for HTN, IDDM II, hx alcohol use disorder, cirrhosis (alcoholic liver disease?), chronic thrombocytopenia, hx of PUD, obesity, depression, osteomyelitis of right foot (treated with minocycline outpatient), left BKA complicated by infection requiring multiple revision who was now hospitalized for left BKA stump adolph lulitis and s/p BKA revision on 12/19/2020. Surgical cultures (including left proximal tibia bone cultures) grew strep agalactiae. The patient was treated with IV antibiotics, initially Vancomycin and Cefepime then later deescalated to Ceftriaxone. ID was consulted-recommended 6 weeks of IV antibiotics. A PICC line was placed to outpatient IV antibiotic treatment. Given the complexity of the patient's infection requiring prolonged IV antibiotic therapy, wound care, and benefit of rehab after this surgery he was recommended to discharge to a SNF however the patient refused. The alternative plan at discharge is for the patient to receive IV antibiotic treatment once a day at the infusion center. He will also need to follow up for wound care and will have a wound VAC at home until further changes per orthopedic surgery. He will follow up with orthopedic surgery and ID after discharge. Home health PT and OT apparently cannot see him as there is reportedly no space in his home (currently a trailer) for therapies therefore rehab options are limited. The patient will need to have weekly lab monitoring while on IV ceftriaxone. Home minocycline for right great toe osteomyelitis was resumed when Vancomycin was discontinued. The risk of complications leading to another hospital admission is elevated given that the patient has significant care needs usually provided by a nursing home fa cility. We offered a SNF option for discharge multiple times however he declined therefore this current plan seems to be the best available at this time. Follow up Complete 6 weeks of IV Ceftriaxone 2 gm daily at the infusion center via PICC line. Weekly labs-CBC, CMP, CRP while on IV Ceftriaxone. Wound care Follow up with orthopedic surgery. Follow up with infectious disease. Discharge diagnosis: nonhealing diabetic wound Secondary discharge diagnosis: Diabetes mellitus-insulin dependent Liver cirrhosis Time Spent with Patient Time attestation: Total time spent providing and/or coordinating discharge services: 35 minutes EXAM Constitutional Vitals: Temp Pulse Resp BP Pulse Ox 97.9 F 86 20 148/86 95 12/23/20 07:14 12/23/20 07:14 12/23/20 07:14 12/23/20 07:14 12/23/20 07:14 Additional findings Additional findings: Head: Atraumatic, normal inspection. Eyes: normal appearance, no scleral icterus. Neck: full ROM Respiratory: no respiratory distress. Cardiovascular: normal rate and rhythm, S1, S2. GI/Abdominal: soft, nontender, no guarding. Extremities: left BKA covered in clean bandage, wound VAC present Neurological: CN II-XII intact, intact motor, intact sensation. Psychiatric: normal mood. Skin: warm, normal color Discharge Data Data Completed and Pending Labs on day of discharge: Labs from last 24 hours 12/23/20 12/23/20 05:35 05:35 WBC 4.0 L RBC 2.91 L Hgb 10.1 L Hct 29.5 L MCV 101.4 H MCH 34.7 H MCHC 34.2 RDW 13.4 Plt Count 79 L MPV 11.6 H Neut % (Auto) 64.6 Lymph % (Auto) 23.8 [place] % (Auto) 8.3 Eos % (Auto) 2.8 Baso % (Auto) 0.5 Lymph # (Auto) 0.95 L [place] # (Auto) 0.33 Eos # (Auto) 0.11 Baso # (Auto) 0.02 Absolute Neutrophils 2.59 Sodium 136 Potassium 4.0 Chloride 101 Carbon Dioxide 30 Anion Gap 5.0 L BUN 9 Creatinine 0.6 L GFR Calculation 116 Glucose 166 H Hemoglobin A1c 6.8 H Estim Average Glucose 148 Calcium 8.7 Preliminary micro results at discharge 12/19/20 16:20 Gram Stain - Preliminary Leg - Left Anaerobic Culture - Preliminary Discharge Plan Patient/Caregiver Discharge Instructions Activity: increase activity as tolerated Prescriptions: New ceftriaxone 2 gram Recon Soln 2 g IV DAILY 35 Days RF: 0 Continued Accu-Chek 1 EACH strip 1 each FS ACHS RF: 0 acetaminophen-codeine 1 TAB tablet 1 tab PO Q4 PRN (Reason: Pain) RF: 0 methocarbamol 750 mg tablet 750 mg PO HS RF: 0 Lantus Solostar U-100 Insulin 100 unit/mL (3 mL) insulin pen 70 unit SUBCUT BID RF: 0 diphenhydramine-acetaminophen [Tylenol PM Extra Strength] 25-500 mg Tablet 2 tab PO HS PRN (Reason: Sleep) RF: 0 insulin lispro [Humalog U-100 Insulin] 100 unit/mL solution 1 - 20 sliding scale dose subcut ACHS RF: 0 minocycline 100 mg capsule 100 mg PO BID RF: 0 ropinirole 2 mg tablet 2 mg PO HS RF: 0 sertraline 25 mg tablet 25 mg PO HS RF: 0 hydrochlorothiazide 12.5 mg tablet 12.5 mg PO DAILY RF: 0 atorvastatin 20 mg tablet 20 mg PO DAILY RF: 0 potassium chloride 10 mEq tablet extended release 20 meq PO DAILY RF: 0 Follow Up Plan Follow up with: Benny Sharif PA-C [Physician User Experience Designer] - 12/25/20 (Call for follow up to d ischarge wound vac) Patient Disposition: Home Health Service Plan of Treatment: You will need approximately five more weeks of IV antibiotics for the bone infection. This will be with Ceftriaxone IV once a day through your PICC line. We will try to get home health to provide the infusions at your home, otherwise you will need to go to the infusion center for IV antibiotic treatment. . You will need weekly labs to monitor for complications while you are on IV antibiotics. You will need to follow up with orthopedic surgery for the amputation wound, this will be scheduled. You will need to follow up with infectious disease for the infection, this will be scheduled. Prognosis: Fair Rehab Potential: Fair QUALITY VTE Deep Vein Thrombosis/Pulmonary Embolism Present on Admission: No
--- NOTE | 2020-12-23 12:02 | Surgical Pathology Report ---
Histology Microscopic Diagnosis Specimen A- BONE, LEFT TIBIA, BIOPSY: --- VIABLE MEDULLARY BONE. --- NO OSTEOMYELITIS OR MALIGNANCY IDENTIFIED. (DMT) Clinical History Infected left onntc-vyy-[id number] amputation. Gross Description Received in formalin labeled left tibia biopsy, is a 0.7 x 0.4 x 0.3 cm fragment of crowell-gould to brown-gould bone and clot-like material. Totally submitted in one cassette following decalcification with Immunocal. (KGW:adj) Electronically Signed Sotero Fletcher MD, FCAP Electronically Signed 12/23/2020 12:01
== END 2020-12-23 14:45 | disposition home health service (06) | DRG 475 ==
LOC: ED 15:48 → MEDSUR 21:20
PROVIDERS: ADMIT Internal Medicine; ATTEND Internal Medicine

== ENCOUNTER 2020-12-26 14:53 | Inpatient (IN) ==
--- NOTE | 2020-12-26 15:20 | Emergency Department Note ---
HPI General Chief complaint: Bleeding Other Stated complaint: Left Stump Bleeding Time Seen by Provider: 12/26/20 15:09 Source: patient and EMS Mode of arrival: EMS Limitations: no limitations History of Present Illness HPI Narrative: Narrative: This patient had a left BKA revision by Dr. Mitchell last week. Sounds like he may have bumped it today and it started bleeding. He comes into the emergency room by EMS and we have remove the bandages and there is no bleeding actively going on at this time. Related Data Home Medications Medication Instructions Recorded Confirmed acetaminophen-codeine 1 tab PO Q4 PRN 03/10/20 12/16/20 Lantus Solostar U-100 Insulin 70 unit SUBCUT BID 04/29/20 12/16/20 methocarbamol 750 mg PO HS 04/29/20 12/16/20 diphenhydramine-acetaminophen 2 tab PO HS PRN 10/03/20 12/16/20 [Tylenol PM Extra Strength] insulin lispro [Humalog U-100 1 - 20 sliding scale dose SUBCUT 10/03/20 12/16/20 Insulin] ACHS hydrochlorothiazide 12.5 mg PO DAILY 12/16/20 12/16/20 minocycline 100 mg PO BID 12/16/20 12/16/20 ropinirole 2 mg PO HS 12/16/20 12/16/20 sertraline 25 mg PO HS 12/16/20 12/17/20 atorvastatin 20 mg PO DAILY 12/17/20 12/17/20 potassium chloride 20 meq PO DAILY 12/17/20 12/17/20 Previous Rx's Medication Instructions Recorded Accu-Chek 1 each FS ACHS strip 02/23/20 ceftriaxone 2 g IV DAILY 35 Days ea 12/23/20 Allergies Allergy/AdvReac Type Severity Reaction Status Date / Time latex Allergy Mild Rash Verified 12/16/20 22:53 Penicillins Allergy Mild Hives Verified 12/19/20 06:57 Review of Systems ROS ROS Narrative: Narrative: All systems ED: reviewed and negative except as stated. PFSH Narrative Patient History Narrative: Narrative: Medical/Surgical/Family History All Active Problems (Updated 12/26/20 @ 15:20 by Carson Fagan MD) Post-op bleeding (Acute) Below-knee amputation of left lower extremity with complication (Acute) Group B streptococcal infection (Acute) Cellulitis and abscess of left lower extremity (Acute) Thrombocytopenia (Acute) Rash (Acute) History of below-knee amputation of left lower extremity (Acute) Hyponatremia (Acute) Fever (Acute) Sinus tachycardia (Acute) Cellulitis of great toe of right foot (Acute) Diabetic foot ulcer (Acute) Osteomyelitis of great toe of right foot (Acute) Anemia, macrocytic (Acute) Deep postoperative wound infection (Acute) Cellulitis (Acute) Hyponatremia (Acute) Hyperglycemia (Acute) Self-care deficit for hygiene (Acute) Stomach ulcer (Chronic) Migraines (Chronic) Liver disease (Chronic) Joint pain (Chronic) Insomnia (Chronic) High blood pressure (Chronic) Type 2 diabetes mellitus (Chronic) Depression (Chronic) Daytime sleepiness (Chronic) Muscle pain (Chronic) Asthma (Chronic) Anxiety (Chronic) Acid reflux (Chronic) Chronic back pain (Chronic) Obesity (Chronic) Restless leg syndrome (Chronic) Diabetic neuropathy (Chronic) Skin fissure (Chronic) Callus of foot (Chronic) Onychomycosis (Chronic) Erectile dysfunction (Chronic) BPH (benign prostatic hyperplasia) (Chronic) 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 Insomnia Insulin dependent diabetes mellitus with complications Joint pain Liver disease Thrombocytopenia. Migraines Muscle pain Obesity Onychomycosis Open wound of right great toe Osteomyelitis of left foot Pontine lesion Clinically this is chronic and not CPM Restless leg syndrome Scrotal abscess Sepsis syndrome Skin fissure Stomach ulcer Thrombocytopenia concurrent with and due to alcoholism CT evidence of cirrhosis and probable hyperspenism Type 2 diabetes mellitus Glucose yesterday 242. Place PICC line for anticipated home IV therapy. If no osteomyelitis or bony debridement completed at the time of surgery today I am anticipating 2 weeks of treatment. I may extend to 4 to 6 weeks depending on intraoperative findings. I would recommend both Vanco and cefepime at this time until final cultures available. Weekly labs recommended while outpatient. To include CBC CMP sed rate and CRP. No previous history of MRSA. If MRSE identified, Vanco will be utilized. I will modify antibiotic therapy once cultures are finalized. Please contact me once cultures are finalized. I would be happy to see the patient in clinic follow-up following hospital discharge. Duration of IV therapy yet to be determined. If MSSA or strep identified, Ancef may be utilized with return to oral minocycline additionally to cover the MRSA in the right great toe. Thank you very much for let me be involved in [facility] consultative care. Surgical History History of hand surgery Left hand History of incision and drainage 10/31/2019-I & D of right lateral chest wall abscess Family History Mother Hypertension Diabetes Arthritis Stroke Social History Smoking Status: Never smoker Alcohol Intake Frequency: holiday/special occasion only Substance Use: does not use Exam Narrative Narrative: Narrative: Bandages are removed and the left BKA revision stump looks clean with all sutures intact no dehiscence and there is no active bleeding. General Limitations: no limitations Head Head: Present atraumatic, normocephalic and normal inspection Neurological Neurological: Present alert Psychiatric Psychiatric: Present normal affect Skin Skin: Present warm (WNL) and dry; Absent diaphoresis Course Vital Signs Vital signs: Vital Signs Temperature 97.9 F 12/26/20 14:54 Pulse Rate 83 12/26/20 14:54 Respiratory Rate 18 12/26/20 14:54 Blood Pressure 144/76 12/26/20 14:54 Pulse Oximetry (%) 96 12/26/20 14:54 Temperature 97.9 F 12/26/20 14:54 Pulse Rate 83 12/26/20 14:54 Respiratory Rate 18 12/26/20 14:54 Blood Pressure 144/76 12/26/20 14:54 Pulse Oximetry (%) 96 12/26/20 14:54 MDM MDM Narrative Medical decision making narrative: Narrative: The left stump was redressed with bandages and he is discharged. Discharge Plan Patient/Caregiver Discharge Instructions Pt seen by BACK TENDER PAPER MACHINE/PA only: No Clinical Impression: History of below-knee amputation of left lower extremity, Post-op bleeding Instructions: Lower Limb Prosthesis (ED) Patient Disposition: Home, Self-Care Follow up with: Klemens,Peggy M, PA-C [Primary Care Provider] - Prescriptions: No Action Accu-Chek 1 EACH strip 1 each FS ACHS RF: 0 acetaminophen-codeine 1 TAB tablet 1 tab PO Q4 PRN (Reason: Pain) RF: 0 methocarbamol 750 mg tablet 750 mg PO HS RF: 0 Lantus Solostar U-100 Insulin 100 unit/mL (3 mL) insulin pen 70 unit SUBCUT BID RF: 0 diphenhydramine-acetaminophen [Tylenol PM Extra Strength] 25-500 mg Tablet 2 tab PO HS PRN (Reason: Sleep) RF: 0 insulin lispro [Humalog U-100 Insulin] 100 unit/mL solution 1 - 20 sliding scale dose subcut ACHS RF: 0 minocycline 100 mg capsule 100 mg PO BID RF: 0 ropinirole 2 mg tablet 2 mg PO HS RF: 0 sertraline 25 mg tablet 25 mg PO HS RF: 0 hydrochlorothiazide 12.5 mg tablet 12.5 mg PO DAILY RF: 0 atorvastatin 20 mg tablet 20 mg PO DAILY RF: 0 potassium chloride 10 mEq tablet extended release 20 meq PO DAILY RF: 0 ceftriaxone 2 gram Recon Soln 2 g IV DAILY 35 Days RF: 0
[2020-12-26] MEDS ORDERED: LACTATED RINGERS 1,000 ML IV ONE (16:13)
[2020-12-26] MEDS ORDERED: cefTRIAXone 2 GM in DEXTROSE 5% IN WATER 50 ML IV ONE (16:17)
[2020-12-26 16:27] LABS: POC Pro Time 12.9 sec (11.9-14.5)
[2020-12-26 16:29] LABS: POC INR 1.1 (0.8-1.2)
[2020-12-26] MEDS ORDERED: TRANEXAMIC ACID 1,000 MG/10 ML VIAL IV ONE ×2 (16:45→20:58)
[2020-12-26 16:51] LABS: Hematocrit 27.4 % (41.0-55.0); Hemoglobin 9.2 g/dL (13.5-16.5); Mean Cell Volume 103.8 fL (80.0-100.0); Mean Corpuscular HGB Conc 33.6 g/dL (31.0-36.0); Mean Platelet Volume 11.7 fL (7.4-10.4); Platelet Count 71 K/mcL (140-440); RBC 2.64 M/mcL (4.50-5.90); Red Cell Distribution Width 14.4 % (11.5-14.5); WBC 3.7 K/mcL (4.5-11.0)
[2020-12-26 17:10] LABS: Partial Thromboplastin Time 41.5 sec (20.0-37.0)
[2020-12-26 17:18] LABS: ALT/SGPT 16 U/L (<40); AST/SGOT 48 U/L (<40); Albumin 2.2 gm/dL (3.2-5.2); Albumin/Globulin Ratio 0.5 (1.0-2.3); Alkaline Phosphatase 73 U/L (39-117); Bilirubin,Total 1.1 mg/dL (0.1-1.0); Blood Urea Nitrogen 9 mg/dL (6-20); Calcium 7.9 mg/dL (8.6-10.4); Carbon Dioxide 33 mmol/L (22-30); Chloride 104 mmol/L (96-108); Globulin 4.4 gm/dL (2.2-3.7); Glomerular Filtration Rate 116; Glucose 306 mg/dL (70-105)
[2020-12-26 17:44] LABS: Eosinophils % (Manual) 4 % (0-7); Lymphocytes % 30 % (15-49); Macrocytosis 1+ (None Seen); Monocytes % (Manual) 8 % (1-12); Platelet Estimate DECREASED (Normal); Polychromasia 1+ (None Seen); RBC Morphology ABNORMAL (Normal); Segmented Neutrophils % 58 % (38-78)
[2020-12-26] MEDS ORDERED: HYDROmorphone 0.5 MG/0.5 ML SYRINGE IV PRN (18:02)
--- NOTE | 2020-12-26 19:05 | Emergency Department Note ---
HPI General Chief complaint: Bleeding Other Stated complaint: Left Stump Bleeding Time Seen by Provider: 12/26/20 15:09 Source: patient and EMS Mode of arrival: EMS Limitations: no limitations History of Present Illness HPI Narrative: Narrative: This patient had a revision of a left BKA last Wednesday and an hour or so before coming emergency room he started having bleeding from the wound site. He may have bumped it recently. Related Data Home Medications Medication Instructions Recorded Confirmed acetaminophen-codeine 1 tab PO Q4 PRN 03/10/20 12/16/20 Lantus Solostar U-100 Insulin 70 unit SUBCUT BID 04/29/20 12/16/20 methocarbamol 750 mg PO HS 04/29/20 12/16/20 diphenhydramine-acetaminophen 2 tab PO HS PRN 10/03/20 12/16/20 [Tylenol PM Extra Strength] insulin lispro [Humalog U-100 1 - 20 sliding scale dose SUBCUT 10/03/20 12/16/20 Insulin] ACHS hydrochlorothiazide 12.5 mg PO DAILY 12/16/20 12/16/20 minocycline 100 mg PO BID 12/16/20 12/16/20 ropinirole 2 mg PO HS 12/16/20 12/16/20 sertraline 25 mg PO HS 12/16/20 12/17/20 atorvastatin 20 mg PO DAILY 12/17/20 12/17/20 potassium chloride 20 meq PO DAILY 12/17/20 12/17/20 Previous Rx's Medication Instructions Recorded Accu-Chek 1 each FS ACHS strip 02/23/20 ceftriaxone 2 g IV DAILY 35 Days ea 12/23/20 Allergies Allergy/AdvReac Type Severity Reaction Status Date / Time latex Allergy Mild Rash Verified 12/16/20 22:53 Penicillins Allergy Mild Hives Verified 12/19/20 06:57 Review of Systems ROS ROS Narrative: Narrative: All systems ED: reviewed and negative except as stated. PFSH Narrative Patient History Narrative: Narrative: Medical/Surgical/Family History All Active Problems (Updated 12/26/20 @ 15:20 by Carson Fagan MD) Post-op bleeding (Acute) Below-knee amputation of left lower extremity with complication (Acute) Group B streptococcal infection (Acute) Cellulitis and abscess of left lower extremity (Acute) Thrombocytopenia (Acute) Rash (Acute) History of below-knee amputation of left lower extremity (Acute) Hyponatremia (Acute) Fever (Acute) Sinus tachycardia (Acute) Cellulitis of great toe of right foot (Acute) Diabetic foot ulcer (Acute) Osteomyelitis of great toe of right foot (Acute) Anemia, macrocytic (Acute) Deep postoperative wound infection (Acute) Cellulitis (Acute) Hyponatremia (Acute) Hyperglycemia (Acute) Self-care deficit for hygiene (Acute) Stomach ulcer (Chronic) Migraines (Chronic) Liver disease (Chronic) Joint pain (Chronic) Insomnia (Chronic) High blood pressure (Chronic) Type 2 diabetes mellitus (Chronic) Depression (Chronic) Daytime sleepiness (Chronic) Muscle pain (Chronic) Asthma (Chronic) Anxiety (Chronic) Acid reflux (Chronic) Chronic back pain (Chronic) Obesity (Chronic) Restless leg syndrome (Chronic) Diabetic neuropathy (Chronic) Skin fissure (Chronic) Callus of foot (Chronic) Onychomycosis (Chronic) Erectile dysfunction (Chronic) BPH (benign prostatic hyperplasia) (Chronic) 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 Insomnia Insulin dependent diabetes mellitus with complications Joint pain Liver disease Thrombocytopenia. Migraines Muscle pain Obesity Onychomycosis Open wound of right great toe Osteomyelitis of left foot Pontine lesion Clinically this is chronic and not CPM Restless leg syndrome Scrotal abscess Sepsis syndrome Skin fissure Stomach ulcer Thrombocytopenia concurrent with and due to alcoholism CT evidence of cirrhosis and probable hyperspenism Type 2 diabetes mellitus Glucose yesterday 242. Place PICC line for anticipated home IV therapy. If no osteomyelitis or bony debridement completed at the time of surgery today I am anticipating 2 weeks of treatment. I may extend to 4 to 6 weeks depending on intraoperative findings. I would recommend both Vanco and cefepime at this time until final cultures available. Weekly labs recommended while outpatient. To include CBC CMP sed rate and CRP. No previous history of MRSA. If MRSE identified, Vanco will be utilized. I will modify antibiotic therapy once cultures are finalized. Please contact me once cultures are finalized. I would be happy to see the patient in clinic follow-up following hospital discharge. Duration of IV therapy yet to be determined. If MSSA or strep identified, Ancef may be utilized with return to oral minocycline additionally to cover the MRSA in the right great toe. Thank you very much for let me be involved in [facility] consultative care. Surgical History History of hand surgery Left hand History of incision and drainage 10/31/2019-I & D of right lateral chest wall abscess Family History Mother Hypertension Diabetes Arthritis Stroke Social History Smoking Status: Never smoker Alcohol Intake Frequency: holiday/special occasion only Substance Use: does not use Exam Narrative Narrative: Narrative: The left revision stump does show some leaking of blood in various places. Sutures are intact and the incision itself looks good. General Limitations: no limitations Head Head: Present atraumatic, normocephalic and normal inspection Eye Eye: Present normal appearance and EOMI; Absent scleral icterus and conjunctival injection Chest Chest: Present normal inspection and symmetric chest wall rise Respiratory Respiratory: Present normal lung sounds bilaterally; Absent respiratory distress, rales/crackles and wheezes Adbominal Abdominal: Present soft; Absent distention and tenderness Neurological Neurological: Present alert Psychiatric Psychiatric: Present normal affect Skin Skin: Present warm (WNL) and dry; Absent diaphoresis Course Vital Signs Vital signs: Vital Signs Temperature 97.9 F 12/26/20 14:54 Pulse Rate 83 12/26/20 14:54 Respiratory Rate 18 12/26/20 14:54 Blood Pressure 144/76 12/26/20 14:54 Pulse Oximetry (%) 96 12/26/20 14:54 Temperature 97.9 F 12/26/20 15:38 Pulse Rate 91 H 12/26/20 15:45 Respiratory Rate 18 12/26/20 15:38 Blood Pressure 122/72 12/26/20 18:46 Pulse Oximetry (%) 98 12/26/20 15:45 MDM MDM Narrative Medical decision making narrative: Narrative: This patient has continued to have active bleeding. I discussed it with Dr. Mitchell who agreed with giving the patient TXA so we gave him 1000 mg IV. Pressure dressing was applied but he continued to bleed through the dressing. I then talk with Dr. Thorne who is planning to take him to the operating room for exploration. Lab Data Lab results narrative: Hemoglobin is dropped from about 10 1-9.2. Result diagrams: 12/26/20 16:18 12/26/20 16:18 Labs: Lab Results 12/26/20 12/26/20 12/26/20 Range/Units 16:18 16:18 16:18 WBC 3.7 L (4.5-11.0) K/mcL RBC 2.64 L (4.50-5.90) M/mcL Hgb 9.2 L (13.5-16.5) g/dL Hct 27.4 L (41.0-55.0) % MCV 103.8 H (80.0-100.0) fL MCH 34.8 H (26.0-34.0) pg MCHC 33.6 (31.0-36.0) g/dL RDW 14.4 (11.5-14.5) % Plt Count 71 L (140-440) K/mcL MPV 11.7 H (7.4-10.4) fL Seg Neutrophils % 58 (38-78) % Lymphocytes % 30 (15-49) % Monocytes % (Manual) 8 (1-12) % Eosinophils % (Manual) 4 (0-7) % Platelet Estimate Decreased A (Normal) RBC Morphology Abnormal A (Normal) Polychromasia 1+ A (None Seen) Macrocytosis 1+ A (None Seen) POC PT 12.9 (11.9-14.5) sec POC INR 1.1 (0.8-1.2) APTT 41.5 H (20.0-37.0) sec Sodium 139 (133-145) mmol/L Potassium 4.0 (3.3-5.1) mmol/L Chloride 104 (96-108) mmol/L Carbon Dioxide 33 H (22-30) mmol/L Anion Gap 2.0 L (8.0-16.0) BUN 9 (6-20) mg/dL Creatinine 0.6 L (0.7-1.2) mg/dL GFR Calculation 116 Glucose 306 H (70-105) mg/dL Calcium 7.9 L (8.6-10.4) mg/dL Total Bilirubin 1.1 H (0.1-1.0) mg/dL AST 48 H (<40) U/L ALT 16 (<40) U/L Alkaline Phosphatase 73 (39-117) U/L Total Protein 6.6 (5.9-8.4) gm/dL Albumin 2.2 L (3.2-5.2) gm/dL Globulin 4.4 H (2.2-3.7) gm/dL Albumin/Globulin Ratio 0.5 L (1.0-2.3) Discharge Plan Patient/Caregiver Discharge Instructions Pt seen by CHURN OPERATOR/PA only: No Clinical Impression: History of below-knee amputation of left lower extremity, Post-op bleeding Instructions: Lower Limb Prosthesis (ED) Patient Disposition: Xfer As Outpt/Obs ([facility]) Follow up with: Peggy Clark PA-C [Primary Care Provider] - Prescriptions: No Action Accu-Chek 1 EACH strip 1 each FS ACHS RF: 0 acetaminophen-codeine 1 TAB tablet 1 tab PO Q4 PRN (Reason: Pain) RF: 0 methocarbamol 750 mg tablet 750 mg PO HS RF: 0 Lantus Solostar U-100 Insulin 100 unit/mL (3 mL) insulin pen 70 unit SUBCUT BID RF: 0 diphenhydramine-acetaminophen [Tylenol PM Extra Strength] 25-500 mg Tablet 2 tab PO HS PRN (Reason: Sleep) RF: 0 insulin lispro [Humalog U-100 Insulin] 100 unit/mL solution 1 - 20 sliding scale dose subcut ACHS RF: 0 minocycline 100 mg capsule 100 mg PO BID RF: 0 ropinirole 2 mg tablet 2 mg PO HS RF: 0 sertraline 25 mg tablet 25 mg PO HS RF: 0 hydrochlorothiazide 12.5 mg tablet 12.5 mg PO DAILY RF: 0 atorvastatin 20 mg tablet 20 mg PO DAILY RF: 0 potassium chloride 10 mEq tablet extended release 20 meq PO DAILY RF: 0 ceftriaxone 2 gram Recon Soln 2 g IV DAILY 35 Days RF: 0
[2020-12-26] MEDS ORDERED: ALBUMIN HUMAN 25 GM/100 ML BAG IV ONE ×3 (19:43→20:00)
[2020-12-26] MEDS ORDERED: 0.9 % SODIUM CHLORIDE 250 ML IV SCH (19:45)
[2020-12-26] MEDS ORDERED: PHENYLEPHRINE 10 MG/ML VIAL ONE (19:57)
[2020-12-26] MEDS ORDERED: LIDOCAINE HCL/PF 100 MG/5 ML SYRINGE IV ONE (19:57)
[2020-12-26] MEDS ORDERED: KETAMINE 100 MG/ML ML ONE (19:57)
[2020-12-26] MEDS ORDERED: MIDAZOLAM 2 MG/2 ML VIAL ONE (19:57)
[2020-12-26] MEDS ORDERED: ONDANSETRON 4 MG/2 ML VIAL ONE (19:57)
[2020-12-26] MEDS ORDERED: PROPOFOL 200 MG/20 ML VIAL IV ONE (19:57)
[2020-12-26] MEDS ORDERED: SUCCINYLCHOLINE 20 MG/ML ML IV ONE (19:57)
[2020-12-26] MEDS ORDERED: ePHEDrine 50 MG/ML AMPUL IV ONE (19:57)
[2020-12-26] MEDS ORDERED: DEXAMETHASONE 4 MG/ML VIAL ONE (19:57)
[2020-12-26] MEDS ORDERED: ePHEDrine 50 MG/ML AMPUL IV PRN (20:44)
[2020-12-26] MEDS ORDERED: METHOCARBAMOL 1,000 MG/10 ML VIAL IV PRN (20:44)
[2020-12-26] MEDS ORDERED: ATROPINE SULFATE 0.4 MG/ML VIAL IV PRN (20:44)
[2020-12-26] MEDS ORDERED: IPRATROPIUM/ALBUTEROL 3 ML AMPUL.NEB NEB PRN (20:44)
[2020-12-26] MEDS ORDERED: ACETAMINOPHEN 1,000 MG/100 ML BAG IV ONE (20:44)
[2020-12-26] MEDS ORDERED: fentaNYL 100 MCG/2 ML VIAL IV PRN (20:44)
[2020-12-26] MEDS ORDERED: ONDANSETRON 4 MG/2 ML VIAL IV PRN (20:44)
[2020-12-26] MEDS ORDERED: FLUMAZENIL 0.1 MG/ML ML IV PRN (20:44)
[2020-12-26] MEDS ORDERED: diphenhydrAMINE 50 MG/ML VIAL IV PRN (20:44)
[2020-12-26] MEDS ORDERED: METOPROLOL TARTRATE 5 MG/5 ML VIAL IV PRN (20:44)
[2020-12-26] MEDS ORDERED: MEPERIDINE 25 MG/ML SYRINGE IV PRN (20:44)
[2020-12-26] MEDS ORDERED: PROMETHAZINE 25 MG/ML VIAL IV PRN (20:44)
[2020-12-26] MEDS ORDERED: NALOXONE HCL 0.4 MG/ML VIAL IV PRN (20:44)
[2020-12-26] MEDS ORDERED: LACTATED RINGERS 1,000 ML IV SCH (20:45)
[2020-12-26] MEDS ORDERED: GELATIN SPONGE,ABSORBABLE 1 EACH SPONGE TOPICAL ONE (20:56)
[2020-12-26] MEDS ORDERED: THROMBIN (BOVINE) 5,000 UNIT VIAL TOPICAL ONE (20:59)
[2020-12-26] MEDS ORDERED: HYDROcodone/APAP 10/325MG TABLET PO PRN (21:17)
[2020-12-26] MEDS ORDERED: morphine 4 MG/ML VIAL IV PRN (21:21)
[2020-12-26] MEDS ORDERED: 0.9 % SODIUM CHLORIDE 1,000 ML IV SCH (21:30)
--- NOTE | 2020-12-26 21:43 | Brief Operative Note ---
Brief Operative Note Date of procedure: 12/26/20 Pre-op diagnosis: hematoma left BKA Post-op diagnosis: same Procedure: evacuation of hematoma Grafts/Implants: No Anesthesia: GETA Findings: (no major arterial bleeding Complications: none Surgeon: Dipak Mitchell Sky Cap: Colt Costa Estimated blood loss (cc): 250 Specimens Removed/Pathology: none sent Condition: stable Disposition: PACU
--- NOTE | 2020-12-26 22:04 | Internal Medicine Consult Note ---
HPI Data of Consult Primary Care Provider: Peggy Clark PA-C Consult Narrative Patient Information: Note initiated : 12/26/20 at 9:52 pm Service Date, if different from initiated Date: [] Patient: Tarun Molina 50 y/o M admitted on for Left Stump Bleeding. Chief Complaint: [] cc:: CC: Wiley Quezada Fadumo This is a patient with obesity diabetes hypertension cirrhosis who was recently admitted for a bleeding and infected left BKA. He had a revision done by Dr. Mitchell and was started on IV antibiotics per Dr. Glover. He was discharged on the with follow-up with orthopedic surgery and infectious disease. Patient has a poor living condition and adamantly refused SNF placement multiple times as hospital staff was concerned about his wound care at home. He was discharged with home health care but again refused SNF placement. He presented back to the ED on the for bleeding from the wound. Possibly bumped it today notes. He was taken back to the OR today for evacuation of hematoma and control of bleeding which did not appear to be any major arterial bleeding. Does have thrombocytopenia chronically platelets before surgery were 70 and did have some bleeding intraoperatively. Platelets were ordered. He is on IV Rocephin for the recent stump infection and has been on minocycline chronically for right great toe osteomyelitis. He is currently in PACU recovering from anesthesia, thus unable to gather review of systems. PFS PFS All Active Problems (Updated 12/26/20 @ 15:20 by Carson Fagan MD) Post-op bleeding (Acute) Below-knee amputation of left lower extremity with complication (Acute) Group B streptococcal infection (Acute) Cellulitis and abscess of left lower extremity (Acute) Thrombocytopenia (Acute) Rash (Acute) History of below-knee amputation of left lower extremity (Acute) Hyponatremia (Acute) Fever (Acute) Sinus tachycardia (Acute) Cellulitis of great toe of right foot (Acute) Diabetic foot ulcer (Acute) Osteomyelitis of great toe of right foot (Acute) Anemia, macrocytic (Acute) Deep postoperative wound infection (Acute) Cellulitis (Acute) Hyponatremia (Acute) Hyperglycemia (Acute) Self-care deficit for hygiene (Acute) Stomach ulcer (Chronic) Migraines (Chronic) Liver disease (Chronic) Joint pain (Chronic) Insomnia (Chronic) High blood pressure (Chronic) Type 2 diabetes mellitus (Chronic) Depression (Chronic) Daytime sleepiness (Chronic) Muscle pain (Chronic) Asthma (Chronic) Anxiety (Chronic) Acid reflux (Chronic) Chronic back pain (Chronic) Obesity (Chronic) Restless leg syndrome (Chronic) Diabetic neuropathy (Chronic) Skin fissure (Chronic) Callus of foot (Chronic) Onychomycosis (Chronic) Erectile dysfunction (Chronic) BPH (benign prostatic hyperplasia) (Chronic) 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 Insomnia Insulin dependent diabetes mellitus with complications Joint pain Liver disease Thrombocytopenia. Migraines Muscle pain Obesity Onychomycosis Open wound of right great toe Osteomyelitis of left foot Pontine lesion Clinically this is chronic and not CPM Restless leg syndrome Scrotal abscess Sepsis syndrome Skin fissure Stomach ulcer Thrombocytopenia concurrent with and due to alcoholism CT evidence of cirrhosis and probable hyperspenism Type 2 diabetes mellitus Glucose yesterday 242. Place PICC line for anticipated home IV therapy. If no osteomyelitis or bony debridement completed at the time of surgery today I am anticipating 2 weeks of treatment. I may extend to 4 to 6 weeks depending on intraoperative findings. I would recommend both Vanco and cefepime at this time until final cultures available. Weekly labs recommended while outpatient. To include CBC CMP sed rate and CRP. No previous history of MRSA. If MRSE identified, Vanco will be utilized. I will modify antibiotic therapy once cultures are finalized. Please contact me once cultures are finalized. I would be happy to see the patient in clinic follow-up following hospital discharge. Duration of IV therapy yet to be determined. If MSSA or strep identified, Ancef may be utilized with return to oral minocycline additionally to cover the MRSA in the right great toe. Thank you very much for let me be involved in Tarun consultative care. Surgical History History of hand surgery Left hand History of incision and drainage 10/31/2019-I & D of right lateral chest wall abscess Family History Mother Hypertension Diabetes Arthritis Stroke Social History marital status: single occupational status: employed smoking status: Never smoker alcohol intake frequency: holiday/special occasion only substance use type: does not use MEDS/ALLERGIES Home Medications and Allergies Home Medications Medication Instructions Recorded Confirmed Type Accu-Chek 1 each FS ACHS strip 02/23/20 12/16/20 Rx acetaminophen-codeine 1 tab PO Q4 PRN 03/10/20 12/16/20 History Lantus Solostar U-100 Insulin 70 unit SUBCUT BID 04/29/20 12/16/20 History methocarbamol 750 mg PO HS 04/29/20 12/16/20 History diphenhydramine-acetaminophen 2 tab PO HS PRN 10/03/20 12/16/20 History [Tylenol PM Extra Strength] insulin lispro [Humalog U-100 1 - 20 sliding scale dose SUBCUT 10/03/20 12/16/20 History Insulin] ACHS hydrochlorothiazide 12.5 mg PO DAILY 12/16/20 12/16/20 History minocycline 100 mg PO BID 12/16/20 12/16/20 History ropinirole 2 mg PO HS 12/16/20 12/16/20 History sertraline 25 mg PO HS 12/16/20 12/17/20 History atorvastatin 20 mg PO DAILY 12/17/20 12/17/20 History potassium chloride 20 meq PO DAILY 12/17/20 12/17/20 History ceftriaxone 2 g IV DAILY 35 Days ea 12/23/20 Rx Allergies Allergy/AdvReac Type Severity Reaction Status Date / Time latex Allergy Mild Rash Verified 12/16/20 22:53 Penicillins Allergy Mild Hives Verified 12/19/20 06:57 EXAM Constitutional Vitals: Temp Pulse Resp BP Pulse Ox 97.5 F 112 H 20 155/74 95 12/26/20 21:32 12/26/20 21:32 12/26/20 21:32 12/26/20 21:32 12/26/20 21:32 Exam: General: Drowsy postop, No acute Distress, obese Eyes/N/T: EOMI, Head/Neck: neck supple, normocephalic atraumatic CV: RRR, No murmurs, normal s1/s2 Pulm: Clear b/l, no wheezing/rhonchi/rales Abd: soft, nontender, +BS x4 Ext: no clubbing/cyanosis RLE, 2+ edema to RLE. LLE BKA with dressing in place Neuro: Alert, no focal deficits, moves all extremities, CN 2-12 grossly intact, Skin: warm/dry DATA Data Completed and Pending Labs: Labs from last 24 hours 12/26/20 12/26/20 12/26/20 21:51 16:18 16:18 WBC RBC Hgb Pending Hct Pending MCV MCH MCHC RDW Plt Count MPV Seg Neutrophils % Lymphocytes % Monocytes % (Manual) Eosinophils % (Manual) Platelet Estimate RBC Morphology Polychromasia Macrocytosis POC PT 12.9 POC INR 1.1 APTT 41.5 H Sodium 139 Potassium 4.0 Chloride 104 Carbon Dioxide 33 H Anion Gap 2.0 L BUN 9 Creatinine 0.6 L GFR Calculation 116 Glucose 306 H Calcium 7.9 L Total Bilirubin 1.1 H AST 48 H ALT 16 Alkaline Phosphatase 73 Total Protein 6.6 Albumin 2.2 L Globulin 4.4 H Albumin/Globulin Ratio 0.5 L 12/26/20 16:18 WBC 3.7 L RBC 2.64 L Hgb 9.2 L Hct 27.4 L MCV 103.8 H MCH 34.8 H MCHC 33.6 RDW 14.4 Plt Count 71 L MPV 11.7 H Seg Neutrophils % 58 Lymphocytes % 30 Monocytes % (Manual) 8 Eosinophils % (Manual) 4 Platelet Estimate Decreased A RBC Morphology Abnormal A Polychromasia 1+ A Macrocytosis 1+ A POC PT POC INR APTT Sodium Potassium Chloride Carbon Dioxide Anion Gap BUN Creatinine GFR Calculation Glucose Calcium Total Bilirubin AST ALT Alkaline Phosphatase Total Protein Albumin Globulin Albumin/Globulin Ratio A/P Narrative A/P Narrative: Assessment: *Left BKA stump bleeding: s/p evacuation of hematoma (12/26) *Recent Left BKA cellulitis w/Abscess: s/p BKA Revision/I&D (12/19) -wound cx growing strep agalactiae -currently on IV Rocephin per *Right great toe osteomyelitis: Being treated with extended course of minocycline by Dr. Glover -Also following with Dr. Whittington *Cirrhosis w/thrombocytopenia: has had extensive w/u to determine etiology in past but likely etoh -Was on Lasix/Aldactone but says those stopped working and so he is on hydrochlorothiazide -baseline plt ~60 *Macrocytic Anemia, chronic: *Obesity: *DM w/neuropathy: Plan: -Dr. Mitchell following -cont rocephin/minocycline per ID -monitor H&H -wound care -basal and SSI -cont home hctz -f/u with Ortho/ID outpt/wound care -pt/ot -CM for placement needs -ppx: SCD to right, no chemical given bleeding full code Time Spent With Patient Time: Total time spent is greater than 50% in coordination of care (as documented) at patient's floor/unit and/or counseling patient:
[2020-12-26] MEDS ORDERED: DEXTROSE 31 GM ORAL.SUSP PO PRN (22:05)
[2020-12-26] MEDS ORDERED: DEXTROSE 50% 50 ML VIAL IV PRN (22:05)
[2020-12-26 22:30] LABS: Hematocrit 25.5 % (41.0-55.0); Hemoglobin 8.7 g/dL (13.5-16.5)
[2020-12-26] MEDS: INSULIN LISPRO 1 UNIT/0.01 ML UNIT SQ SCH (22:48)
[2020-12-26] MEDS ORDERED: INSULIN LISPRO 1 UNIT/0.01 ML UNIT SQ ONE (22:56)
[2020-12-26] MEDS ORDERED: ceFAZolin 1 GM VIAL ONE (23:06)
[2020-12-26] MEDS: ceFAZolin 2 GM in DEXTROSE 5% IN WATER 50 ML IV SCH (23:32)
[2020-12-27] MEDS: INSULIN LISPRO 1 UNIT/0.01 ML UNIT SQ SCH ×3 (02:12→10:10)
[2020-12-27] MEDS ORDERED: INSULIN LISPRO 1 UNIT/0.01 ML UNIT SQ ONE (02:19)
[2020-12-27] MEDS ORDERED: ceFAZolin 1 GM VIAL IV SCH (06:00)
[2020-12-27] MEDS: ceFAZolin 2 GM in DEXTROSE 5% IN WATER 50 ML IV SCH (06:44)
[2020-12-27 07:45] LABS: Basophils # (Auto) 0 K/mcL (0.00-0.20); Basophils % (Auto) 0 % (0.0-2.0); Eosinophils # (Auto) 0 K/mcL (0.00-0.70); Eosinophils % (Auto) 0 % (0.0-7.0); Hematocrit 25.5 % (41.0-55.0); Hemoglobin 8.6 g/dL (13.5-16.5); Lymphocytes # (Auto) 0.45 K/mcL (1.50-4.80); Lymphocytes % (Auto) 11.3 % (15.0-49.0); Mean Cell Volume 99.6 fL (80.0-100.0); Mean Corpuscular HGB Conc 33.7 g/dL (31.0-36.0); Mean Platelet Volume 11.6 fL (7.4-10.4); Monocytes # (Auto) 0.11 K/mcL (0.10-0.90); Monocytes % (Auto) 2.8 % (1.0-12.0); Neutrophils % (Auto) 85.9 % (38.0-78.0); Platelet Count 53 K/mcL (140-440); RBC 2.56 M/mcL (4.50-5.90); Red Cell Distribution Width 15.5 % (11.5-14.5)
[2020-12-27] MEDS ORDERED: ACETAMINOPHEN W/CODEINE #3 1 TABLET PO PRN (08:01)
[2020-12-27] MEDS ORDERED: ACETAMINOPHEN/DIPHENHYDRAMINE 1 TABLET PO PRN (08:01)
--- NOTE | 2020-12-27 08:03 | Internal Med Progress Note ---
SUBJECTIVE Subjective Patient information: Note initiated : 12/27/20 at 8:00 am Service Date, if different from initiated Date: [] Patient: Tarun Molina 50 y/o M admitted on 12/26/20 for Left Stump Bleeding. Chief Complaint: [] Interval history: This is a patient with obesity diabetes hypertension cirrhosis who was recently admitted for a bleeding and infected left BKA. He had a revision done by Dr. Mitchell and was started on IV antibiotics per Dr. Glover. He was discharged on the with follow-up with orthopedic surgery and infectious disease. Patient has a poor living condition and adamantly refused SNF placement multiple times as hospital staff was concerned about his wound care at home. He was discharged with home health care but again refused SNF placement. He presented back to the ED on the for bleeding from the wound. Possibly bumped it today notes. He was taken back to the OR today for evacuation of hematoma and control of bleeding which did not appear to be any major arterial bleeding. Does have thrombocytopenia chronically platelets before surgery were 70 and did have some bleeding intraoperatively. Platelets were ordered. He is on IV Rocephin for the recent stump infection and has been on minocycline chronically for right great toe osteomyelitis. He is currently in PACU recovering from anesthesia, thus unable to gather review of systems. 12/27 No issues overnight. Patient comfortable with no complaints this morning. Status post hematoma evacuation last night and has drain in place. Review of Systems: denies headache/fever/chills/nausea/vomiting/chest or abdominal pain/cough/dyspnea/diarrhea. Otherwise see above. Constitutional Vitals: Vital Signs Temp Pulse Resp BP Pulse Ox 98.6 F 87 18 116/60 95 12/27/20 06:52 12/27/20 07:32 12/27/20 06:52 12/27/20 06:52 12/27/20 06:52 Period Temp Pulse Resp BP Sys/Garcia Pulse Ox Last 24 Hr 97.5 F-98.6 F 83-112 14-20 105-155/57-81 92-100 Intake and Output 12/26/20 12/27/20 12/27/20 21:59 05:59 13:59 Intake Total 2550 1649 Output Total 900 705 500 Balance 1650 944 -500 Weight 117.934 kg 117.934 kg Intake & Output: Intake & Output 12/26/20 12/27/20 12/27/20 21:59 05:59 13:59 Intake Total 2550 1649 Output Total 900 705 500 Balance 1650 944 -500 Weight 117.934 kg 117.934 kg Intake: IV 1050 229 Lactated Ringers 1,000 ml @ 20 1000 29 mls/hr IV .Q24H [facility] Rx#: [id number] Rocephin 2 gm In Dextrose 5% in 50 Water 50 ml @ 100 mls/hr IV ONCE ONE Rx#:[id number] Oral 600 Blood Product 820 IV - Manual Only 1500 Output: Drainage 30 left leg hemovac 30 Urine Catheter Amount 600 Void Amount 675 500 Estimated Blood Loss 300 Other: Urine Appearance Clear Clear Straight Clear Urine Color Dark Yellow Dark Yellow Straight Dark Yellow Exam: General: awake, alert, No acute Distress, obese Eyes/N/T: EOMI, Head/Neck: neck supple, normocephalic atraumatic CV: RRR, No murmurs, normal s1/s2 Pulm: Clear b/l, no wheezing/rhonchi/rales Abd: soft, nontender, +BS x4 Ext: no clubbing/cyanosis RLE, 2+ edema to RLE. LLE BKA with dressing in place Neuro: Alert, no focal deficits, moves all extremities, Skin: warm/dry OBJ DATA Labs CBC & Chem 7: 12/27/20 06:30 12/26/20 16:18 Labs: Abnormal Lab Results 12/27/20 12/26/20 12/26/20 06:30 21:51 16:18 WBC 4.0 L RBC 2.56 L Hgb 8.6 L 8.7 L Hct 25.5 L 25.5 L MCV MCH RDW 15.5 H Plt Count 53 L MPV 11.6 H Neut % (Auto) 85.9 H Lymph % (Auto) 11.3 L Lymph # (Auto) 0.45 L Platelet Estimate RBC Morphology Polychromasia Macrocytosis APTT Carbon Dioxide 33 H Anion Gap 2.0 L Creatinine 0.6 L Glucose 306 H Calcium 7.9 L Total Bilirubin 1.1 H AST 48 H Albumin 2.2 L Globulin 4.4 H Albumin/Globulin Ratio 0.5 L 12/26/20 12/26/20 16:18 16:18 WBC 3.7 L RBC 2.64 L Hgb 9.2 L Hct 27.4 L MCV 103.8 H MCH 34.8 H RDW Plt Count 71 L MPV 11.7 H Neut % (Auto) Lymph % (Auto) Lymph # (Auto) Platelet Estimate Decreased A RBC Morphology Abnormal A Polychromasia 1+ A Macrocytosis 1+ A APTT 41.5 H Carbon Dioxide Anion Gap Creatinine Glucose Calcium Total Bilirubin AST Albumin Globulin Albumin/Globulin Ratio Meds: Medications Hydrocodone Bitart/Acetaminophen (Hydrocodone/Apap 10/325mg Tablet) 0 tab PO Q4HP PRN; Protocol PRN Reason: Per Pain Protocol Last Admin: 12/26/20 22:29 Dose: 2 tab Documented by: Cefazolin Sodium (Cefazolin 1 Gm Vial) 2 gm IV Q8H [facility] Stop: 12/27/20 16:00 Last Admin: 12/27/20 06:16 Dose: 2 gm Documented by: Dextrose (Dextrose 50% 50 Ml Vial) 0 ml IV UD PRN PRN Reason: Hypoglycemia Diagnostic Test (Pha) (Accu-Chek 1 Each Strip) 1 each FS Q4H [facility] Last Admin: 12/27/20 06:09 Dose: 1 each Documented by: Glucose (Dextrose 31 Gm Oral.Susp) 15 gm PO PRN PRN PRN Reason: Hypoglycemia Sodium Chloride (Sodium Chloride 0.9%) 250 mls @ 20 mls/hr IV .[id number] [facility] Stop: 12/27/20 08:14 Last Admin: 12/26/20 22:40 Dose: 20 mls/hr Documented by: Sodium Chloride (Sodium Chloride 0.9%) 1,000 mls @ 75 mls/hr IV .[id number] [facility] Last Admin: 12/26/20 22:18 Dose: 75 mls/hr Documented by: Insulin Human Lispro (Insulin Lispro 1 Unit/0.01 Ml Unit) 0 unit SQ Q4H [facility]; Protocol Last Admin: 12/27/20 06:17 Dose: 8 units Documented by: Morphine Sulfate (Morphine 4 Mg/Ml Vial) 4 mg IV Q1HP PRN; Protocol PRN Reason: Per Pain Protocol A/P Narrative A/P Narrative: Assessment: *Left BKA stump bleeding: s/p evacuation of hematoma (12/26) *Recent Left BKA cellulitis w/Abscess: s/p BKA Revision/I&D (12/19) -wound cx growing strep agalactiae -currently on IV Rocephin per *Right great toe osteomyelitis: Being treated with extended course of minocycline by Dr. Glover -Also following with Dr. Whittington *Cirrhosis w/thrombocytopenia: has had extensive w/u to determine etiology in past but likely etoh -Was on Lasix/Aldactone but says those stopped working and so he is on hydrochlorothiazide -baseline plt ~60, currenlty 53 *Macrocytic Anemia, acute on chronic: -8.6<9.2 *Obesity: *DM w/neuropathy: Plan: -Dr. Mitchell following -cont rocephin/minocycline per ID -monitor H&H -wound care -basal and SSI -cont home hctz -f/u with Ortho/ID/wound care outpt -pt/ot -CM for placement needs -ppx: SCD to right, no chemical given bleeding full code Time Spent With Patient Time: Total time spent is greater than 50% in coordination of care (as documented) at patient's floor/unit and/or counseling patient: QUALITY Stroke Symptom Onset Unknown: No VTE Deep Vein Thrombosis/Pulmonary Embolism Present on Admission: No
--- NOTE | 2020-12-27 08:05 | Operative Note ---
DATE OF OPERATION: 12/26/2020 PREOPERATIVE DIAGNOSIS: Hematoma with bleeding, status post revision [id number] amputation. POSTOPERATIVE DIAGNOSIS: Hematoma with bleeding, status post revision [id number] amputation. OPERATION: Evacuation of hematoma and closure of wound. SURGEON: Dipak Mitchell MD L D RN: Darrick Costa PA-C. This providers expertise and technical skill were required throughout the case. The PA assisted with preoperative coordination, intraoperative retraction, wound closure, and dressing and splint application, as well as postoperative documentation and care coordination. ANESTHESIA: General. ESTIMATED BLOOD LOSS: 250 mL TOURNIQUET TIME: 11 minutes. SUMMARY OF PROCEDURE: The patient was placed on the operating room table prior to me getting there. Dr. Thorne did the opening of the surgery. After the exposure was made, I then took over the surgery. The bleeders had been partially stopped with the Bovie and there was no arterial bleeding noted. We meticulously stop all the bleeders with the Bovie and clamping. There was some oozing from the bone as well and the bone was covered with bone wax. I then drilled 2 holes in the anterior tibia and 2-0 Vicryls were placed through the anterior tibia to the superficial posterior fascia. These were tied with a reduction of the posterior flap. There was no purulence in the area. The wound was then meticulously closed using 0 Vicryl for the deeper tissue. This was followed by a 3/16 Hemovac drain. The remainder of the wound was closed with 2-0 Vicryl and then the skin was closed with 0 and 2-0 Prolene mattresses and simple sutures. A sterile compressive dressing was applied. During the closure, we also put in 1 gram of tranexamic acid and also some thrombin. The sponge and needle count was correct. The patient tolerated the procedure well. His knee immobilizer was reapplied. He was taken to the recovery room in stable condition. TJF:kh Job ID: [id number] Doc ID: [id number] Dipak Mitchell MD
[2020-12-27] MEDS ORDERED: cefTRIAXone 2 GM VIAL IV SCH (09:00)
[2020-12-27] MEDS ORDERED: ATORVASTATIN 20 MG TABLET PO SCH (09:00)
[2020-12-27] MEDS ORDERED: MINOCYCLINE 100 MG CAPSULE PO SCH (09:00)
[2020-12-27] MEDS ORDERED: NON FORMULARY MEDICATION 1 DOSE MISCELL (Insulin Glargine [Lantus Solostar U-100 Insulin] SUB-Q SCH (09:00)
[2020-12-27] MEDS ORDERED: HYDROCHLOROTHIAZIDE 12.5 MG CAPSULE PO SCH (09:00)
[2020-12-27] MEDS ORDERED: INSULIN GLARGINE, HUMAN 1 UNIT/0.01 ML SQ SCH (09:00)
[2020-12-27] MEDS ORDERED: cefTRIAXone 2 GM in DEXTROSE 5% IN WATER 50 ML IV SCH (09:00)
--- NOTE | 2020-12-27 11:03 | Discharge Summary ---
Discharge Provider Provider Patient information: Note initiated : 12/27/20 at 11:02 am Service Date, if different from initiated Date: [] Patient: Tarun Molina 50 y/o M admitted on 12/26/20 for Left Stump Bleeding. Chief Complaint: [] Date of admission: 12/26/20 22:10 Discharge date: 12/27/20 Primary care physician: Peggy Clark PA-C Admitting clinician: Wiley Thorne Attending physician on admission: Dipak Mitchell Consults: 12/26/20 Consult to Physician [CONS] Stat Comment: Consulting Provider: Wiley Thorne Reason For Exam: Physician to Consult 12/26/20 21:27 Consult to Physician [CONS] Routine Comment: diabetic, thrombocytopenia, bleeding disorder Consulting Provider: Johnny Pena Reason For Exam: Physician to Consult Attending physician on discharge: maricruz Discharging clinician: maricruz COURSE Hospital Course Hospital course: see above. Discharge diagnosis: hematoma, thrombocytopenia Time Spent with Patient Time attestation: Total time spent providing and/or coordinating discharge services: Physical Examination Narrative Exam Narrative: see below Exam Incision draining: No Clean and dry: Yes Weight bearing status: none DC Instructions-General Patient Instructions Dressing Care: Cover dressing in shower Discharge Plan Patient/Caregiver Discharge Instructions Activity: other Diet: Consistent Carbohydrate Instructions: Lower Limb Prosthesis (ED) Prescriptions: No Action Accu-Chek 1 EACH strip 1 each FS ACHS RF: 0 acetaminophen-codeine 1 TAB tablet 1 tab PO Q4 PRN (Reason: Pain) RF: 0 methocarbamol 750 mg tablet 750 mg PO HS RF: 0 Lantus Solostar U-100 Insulin 100 unit/mL (3 mL) insulin pen 60 unit SUBCUT BID RF: 0 diphenhydramine-acetaminophen [Tylenol PM Extra Strength] 25-500 mg Tablet 2 tab PO HS PRN (Reason: Sleep) RF: 0 insulin lispro [Humalog U-100 Insulin] 100 unit/mL solution 1 - 20 sliding scale dose subcut ACHS RF: 0 minocycline 100 mg capsule 100 mg PO BID RF: 0 ropinirole 2 mg tablet 2 mg PO HS RF: 0 sertraline 25 mg tablet 25 mg PO HS RF: 0 hydrochlorothiazide 12.5 mg tablet 12.5 mg PO DAILY RF: 0 atorvastatin 20 mg tablet 20 mg PO DAILY RF: 0 potassium chloride 10 mEq tablet extended release 20 meq PO DAILY RF: 0 ceftriaxone 2 gram Recon Soln 2 g IV DAILY 35 Days RF: 0 Follow Up Plan Follow up with: Peggy Clark PA-C [Primary Care Provider] - Dipak Mitchell MD [Physician] - Benny Sharif PA-C [Physician Radiology Transcriptionist] - 01/01/21 Patient Disposition: Home, Self-Care Rehab Potential: Fair I certify that the patient requires SNF services: No Overall status at discharge: patient is not back to baseline Discharge Orders: Discharge Order (Routine); Ordered 12/27/20 Ordered By: Dipak Mitchell Pending Pending Pending: Resuscitation Status Full Code Diet Consistent Carbohydrate Diet Start WedDec 26 2312 Hydrocodone Bitart/Acetaminophen (Hydrocodone/Apap 10/325mg Tablet) 0 tab PO Q4HP PRN; Protocol PRN Reason: Per Pain Protocol Last Admin: 12/26/20 22:29 Dose: 2 tab Documented by: BRANDI Atorvastatin Calcium (Atorvastatin 20 Mg Tablet) 20 mg PO DAILY [facility] Last Admin: 12/27/20 08:21 Dose: 20 mg Documented by: BILL Diagnostic Test (Pha) (Accu-Chek 1 Each Strip) 1 each FS Q4H [facility] Last Admin: 12/27/20 10:05 Dose: 1 each Documented by: Admin: 12/27/20 06:09 Dose: 1 each Documented by: Admin: 12/27/20 02:06 Dose: 1 each Documented by: Admin: 12/26/20 22:34 Dose: 1 each Documented by: BRANDI Hydrochlorothiazide (Hydrochlorothiazide 12.5 Mg Capsule) 12.5 mg PO DAILY [facility] Last Admin: 12/27/20 08:21 Dose: 12.5 mg Documented by: BILL Sodium Chloride (Sodium Chloride 0.9%) 1,000 mls @ 75 mls/hr IV .[id number] [facility] Last Admin: 12/26/20 22:18 Dose: 75 mls/hr Documented by: BRANDI Ceftriaxone Sodium 2 gm/ (Dextrose) 50 mls @ 100 mls/hr IV DAILY [facility] Last Infusion: 12/27/20 09:30 Dose: 0 mls/hr Documented by: Admin: 12/27/20 08:22 Dose: 100 mls/hr Documented by: BILL Insulin Glargine (Insulin Glargine, Human 1 Unit/0.01 Ml) 60 unit SQ BID [facility] Last Admin: 12/27/20 08:20 Dose: 60 unit Documented by: BILL Insulin Human Lispro (Insulin Lispro 1 Unit/0.01 Ml Unit) 0 unit SQ Q4H [facility]; Protocol Last Admin: 12/27/20 10:10 Dose: 8 units Documented by: Admin: 12/27/20 06:17 Dose: 8 units Documented by: Admin: 12/27/20 02:12 Dose: 8 units Documented by: Admin: 12/26/20 22:48 Dose: 6 units Documented by: BRANDI Minocycline HCl (Minocycline 100 Mg Capsule) 100 mg PO BID [facility] Last Admin: 12/27/20 08:21 Dose: 100 mg Documented by: BILL Shift Summary 12/27/20 05:22 Shift Summary by Rivka Javed Diagnosis: Bleeding with Thrombocytopenia on left stump, 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 Brief history of present illness: Revision of BKA done by Dr. Mitchell 12/19. Discharge with IV antibiotics for recent stump infection and on Minocycline for chronic great toe osteomyelits. Orientation: Alert and oriented x4 Ambulation status: Up sitting at bedside with standby assist using the urinal. Elevated left stump on pillow. Knee immobilizer in place. Voiding: Uses the urinal IV access: PICC double lumen on TESSA, IVF NS@ 75. IV on right wrist saline locked. Had 2 units of RBC and 1 unit of platelet this shift. Tubes/drains: Hemovac drained 30 cc sanguinous output. On 2L nasal cannula, desats to 87% Pain: Medicated with Hydrocodone 2 tabs x1 Wounds: left stump dressing CDI. Discharge plans: N?A Alarms (if applicable): Bed alarm at night Initialized on 12/27/20 05:22 - END OF NOTE
--- NOTE | 2020-12-27 11:06 | Discharge Summary ---
Discharge Provider Provider Patient information: Note initiated : 12/27/20 at 11:03 am Service Date, if different from initiated Date: [] Patient: Tarun Molina 50 y/o M admitted on 12/26/20 for Left Stump Bleeding. Chief Complaint: [] Date of admission: 12/26/20 22:10 Discharge date: 12/27/20 Primary care physician: Peggy Clark PA-C Consults: 12/26/20 Consult to Physician [CONS] Stat Comment: Consulting Provider: Wiley Thorne Reason For Exam: Physician to Consult 12/26/20 21:27 Consult to Physician [CONS] Routine Comment: diabetic, thrombocytopenia, bleeding disorder Consulting Provider: Johnny Pena Reason For Exam: Physician to Consult COURSE Hospital Course Hospital course: hematome secondary to thrombocytopenia and recent surgery on left knee stump. Pt given and plt and hematoma evacuated. No drainage at the time of discharge Discharge diagnosis: hematoma, thrombocytopenia Time Spent with Patient Time attestation: Total time spent providing and/or coordinating discharge services: Discharge Plan Patient/Caregiver Discharge Instructions Activity: other Diet: Consistent Carbohydrate Instructions: Lower Limb Prosthesis (ED) Prescriptions: No Action Accu-Chek 1 EACH strip 1 each FS ACHS RF: 0 acetaminophen-codeine 1 TAB tablet 1 tab PO Q4 PRN (Reason: Pain) RF: 0 methocarbamol 750 mg tablet 750 mg PO HS RF: 0 Lantus Solostar U-100 Insulin 100 unit/mL (3 mL) insulin pen 60 unit SUBCUT BID RF: 0 diphenhydramine-acetaminophen [Tylenol PM Extra Strength] 25-500 mg Tablet 2 tab PO HS PRN (Reason: Sleep) RF: 0 insulin lispro [Humalog U-100 Insulin] 100 unit/mL solution 1 - 20 sliding scale dose subcut ACHS RF: 0 minocycline 100 mg capsule 100 mg PO BID RF: 0 ropinirole 2 mg tablet 2 mg PO HS RF: 0 sertraline 25 mg tablet 25 mg PO HS RF: 0 hydrochlorothiazide 12.5 mg tablet 12.5 mg PO DAILY RF: 0 atorvastatin 20 mg tablet 20 mg PO DAILY RF: 0 potassium chloride 10 mEq tablet extended release 20 meq PO DAILY RF: 0 ceftriaxone 2 gram Recon Soln 2 g IV DAILY 35 Days RF: 0 Follow Up Plan Follow up with: Peggy Clark PA-C [Primary Care Provider] - Dipak Mitchell MD [Physician] - Benny Sharif PA-C [Physician Airport Sales Agent] - 01/01/21 Patient Disposition: Home, Self-Care Rehab Potential: Fair I certify that the patient requires SNF services: No Overall status at discharge: patient is not back to baseline Discharge Orders: Discharge Order (Routine); Ordered 12/27/20 Ordered By: Dipak Mitchell Pending Pending Pending: Resuscitation Status Full Code Diet Consistent Carbohydrate Diet Start WedDec 26 2312 Hydrocodone Bitart/Acetaminophen (Hydrocodone/Apap 10/325mg Tablet) 0 tab PO Q4HP PRN; Protocol PRN Reason: Per Pain Protocol Last Admin: 12/26/20 22:29 Dose: 2 tab Documented by: BRANDI Atorvastatin Calcium (Atorvastatin 20 Mg Tablet) 20 mg PO DAILY [facility] Last Admin: 12/27/20 08:21 Dose: 20 mg Documented by: BILL Diagnostic Test (Pha) (Accu-Chek 1 Each Strip) 1 each FS Q4H [facility] Last Admin: 12/27/20 10:05 Dose: 1 each Documented by: Admin: 12/27/20 06:09 Dose: 1 each Documented by: Admin: 12/27/20 02:06 Dose: 1 each Documented by: Admin: 12/26/20 22:34 Dose: 1 each Documented by: BRANDI Hydrochlorothiazide (Hydrochlorothiazide 12.5 Mg Capsule) 12.5 mg PO DAILY [facility] Last Admin: 12/27/20 08:21 Dose: 12.5 mg Documented by: BILL Sodium Chloride (Sodium Chloride 0.9%) 1,000 mls @ 75 mls/hr IV .[id number] [facility] Last Admin: 12/26/20 22:18 Dose: 75 mls/hr Documented by: BRANID Ceftriaxone Sodium 2 gm/ (Dextrose) 50 mls @ 100 mls/hr IV DAILY [facility] Last Infusion: 12/27/20 09:30 Dose: 0 mls/hr Documented by: Admin: 12/27/20 08:22 Dose: 100 mls/hr Documented by: BILL Insulin Glargine (Insulin Glargine, Human 1 Unit/0.01 Ml) 60 unit SQ BID [facility] Last Admin: 12/27/20 08:20 Dose: 60 unit Documented by: BILL Insulin Human Lispro (Insulin Lispro 1 Unit/0.01 Ml Unit) 0 unit SQ Q4H [facility]; Protocol Last Admin: 12/27/20 10:10 Dose: 8 units Documented by: Admin: 12/27/20 06:17 Dose: 8 units Documented by: Admin: 12/27/20 02:12 Dose: 8 units Documented by: Admin: 12/26/20 22:48 Dose: 6 units Documented by: BRANDI Minocycline HCl (Minocycline 100 Mg Capsule) 100 mg PO BID [facility] Last Admin: 12/27/20 08:21 Dose: 100 mg Documented by: BILL Shift Summary 12/27/20 05:22 Shift Summary by Rivka Javed Diagnosis: Bleeding with Thrombocytopenia on left stump, 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 Brief history of present illness: Revision of BKA done by Dr. Mitchell 12/19. Discharge with IV antibiotics for recent stump infection and on Minocycline for chronic great toe osteomyelits. Orientation: Alert and oriented x4 Ambulation status: Up sitting at bedside with standby assist using the urinal. Elevated left stump on pillow. Knee immobilizer in place. Voiding: Uses the urinal IV access: PICC double lumen on TESSA, IVF NS@ 75. IV on right wrist saline locked. Had 2 units of RBC and 1 unit of platelet this shift. Tubes/drains: Hemovac drained 30 cc sanguinous output. On 2L nasal cannula, desats to 87% Pain: Medicated with Hydrocodone 2 tabs x1 Wounds: left stump dressing CDI. Discharge plans: N?A Alarms (if applicable): Bed alarm at night Initialized on 12/27/20 05:22 - END OF NOTE
[2020-12-27] MEDS ORDERED: diphenhydrAMINE 25 MG CAPSULE PO PRN (21:00)
[2020-12-27] MEDS ORDERED: METHOCARBAMOL 750 MG TABLET PO SCH (21:00)
[2020-12-27] MEDS ORDERED: rOPINIRole 1 MG TABLET PO SCH (21:00)
[2020-12-27] MEDS ORDERED: SERTRALINE 50 MG TABLET PO SCH (21:00)
== END 2020-12-27 14:30 | disposition home or self-care (01) | DRG 908 ==
LOC: ED 14:53 → SUR 19:43 → MEDSUR 22:10
PROVIDERS: ADMIT Orthopaedic Surgery Foot and Ankle Surgery; ATTEND Orthopaedic Surgery Foot and Ankle Surgery

== ENCOUNTER 2022-08-09 13:46 | Inpatient (IN) ==
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
[2022-08-09] MEDS ORDERED: 0.9 % SODIUM CHLORIDE 1,000 ML IV ONE (14:12)
[2022-08-09 15:38] LABS: Basophils # (Auto) 0.01 K/mcL (0.00-0.30); Basophils % (Auto) 0.3 % (0.0-2.0); Eosinophils # (Auto) 0.17 K/mcL (0.00-0.70); Eosinophils % (Auto) 5.1 % (0.0-7.0); Hematocrit 30.2 % (40.1-51.0); Hemoglobin 10.3 g/dL (13.7-17.5); Lymphocytes # (Auto) 1.06 K/mcL (1.50-4.80); Lymphocytes % (Auto) 31.8 % (15.5-49.0); Mean Cell Volume 97.4 fL (80.0-100.0); Mean Corpuscular HGB Conc 34.1 g/dL (31.0-36.0); Mean Platelet Volume 12.2 fL (8.8-12.5); Neutrophils % (Auto) 56.5 % (38.0-78.0); Platelet Count 55 K/mcL (140-440); WBC 3.3 K/mcL (4.5-11.0)
[2022-08-09 15:47] LABS: Erythrocyte Sedimentation Rate 64 mm/hr (0-20)
[2022-08-09 16:04] LABS: ALT/SGPT 19 U/L (<40); AST/SGOT 40 U/L (<40); Albumin 2.5 gm/dL (3.2-5.2); Albumin/Globulin Ratio 0.5 (1.0-2.3); Alkaline Phosphatase 103 U/L (39-117); Bilirubin,Total 1.7 mg/dL (0.1-1.0); Blood Urea Nitrogen 8 mg/dL (6-20); Calcium 8.6 mg/dL (8.6-10.4); Carbon Dioxide 21 mmol/L (22-30); Chloride 102 mmol/L (96-108); Globulin 5.5 gm/dL (2.2-3.7); Glomerular Filtration Rate 108; Glucose 294 mg/dL (70-105)
--- NOTE | 2022-08-09 16:56 | Internal Med History&Physical ---
HPI History of Present Illness Patient information: Note initiated : 08/09/22 at 4:53 pm Service Date, if different from initiated Date: [] Patient: Tarun Molina 52 y/o M admitted on for wound. Chief Complaint: [] History of present illness: Mr. Molina is a 52 year old Male with a history of type 2 diabetes mellitus, hypertension, liver cirrhosis, left BKA who presents to the ED for feeling tired. Patient has a left BKA wound that has recently opened up due to a poorly fitting prosthesis. The patient has a right wrist wound from a recent surgery for an infection in his right wrist. The patient was apparently placed in handcuffs and incarcerated, the handcuffs injured his right wrist which resulted in a right wrist infection for which she was hospitalized in [place]. Patient's main concern now is that he sometimes gets septic around the time that he begins to feel tired. In the emergency department, the patient was afebrile, white blood cell count was low similar to prior lab values, the patient has a chronic thrombocytopenia, ESR was 64, CRP was 1.0, upper limit of normal is 0.8, procalcitonin of 0.16. Hospital medicine was consulted for admission, the patient's right wrist wound and left BKA wound do not appear to be acutely infected. The patient will be admitted for expedited wound care and possible antibiotic treatment if he develops symptoms and signs of infection. Review of systems Constitutional: Positive for fatigue Eyes: no vision changes or pain Cardiovascular: no chest pain, no palpitations Respiratory: no cough or dyspnea Gastrointestinal: no abdominal pain, no nausea, vomiting, or diarrhea Genitourinary: no dysuria or difficulty voiding Musculoskeletal: Positive for right wrist wound and left BKA wound. Neurological: no focal weakness or numbness Psychiatric: no anxiety or depression Physical exam Head: Atraumatic, normal inspection. Eyes: normal appearance, no scleral icterus. Neck: full ROM Respiratory: no respiratory distress. Cardiovascular: normal rate and rhythm, S1, S2. GI/Abdominal: soft, nontender, no guarding. Extremities: Left BKA. Neurological: CN II-XII intact, intact motor, intact sensation. Psychiatric: normal mood. Skin: Open wound on left BKA stump, does not appear to be acutely infected. Right wrist surgical incision appears to be mildly dehisced, does not appear to be acutely infected. PFSH PFS All Active Problems (Updated 08/09/22 @ 16:31 by Ranulfo Ivan PA-C) Post-op bleeding (Acute) Dehiscence of wound (Acute) Amputation stump complication (Acute) Below-knee amputation of left lower extremity with complication (Acute) Group B streptococcal infection (Acute) Cellulitis and abscess of left lower extremity (Acute) Thrombocytopenia (Acute) Rash (Acute) History of below-knee amputation of left lower extremity (Acute) Hyponatremia (Acute) Fever (Acute) Sinus tachycardia (Acute) Cellulitis of great toe of right foot (Acute) Diabetic foot ulcer (Acute) Osteomyelitis of great toe of right foot (Acute) Anemia, macrocytic (Acute) Deep postoperative wound infection (Acute) Cellulitis (Acute) Hyponatremia (Acute) Hyperglycemia (Acute) Self-care deficit for hygiene (Acute) Stomach ulcer (Chronic) Migraines (Chronic) Liver disease (Chronic) Joint pain (Chronic) Insomnia (Chronic) High blood pressure (Chronic) Type 2 diabetes mellitus (Chronic) Depression (Chronic) Daytime sleepiness (Chronic) Muscle pain (Chronic) Asthma (Chronic) Anxiety (Chronic) Acid reflux (Chronic) Chronic back pain (Chronic) Obesity (Chronic) Restless leg syndrome (Chronic) Diabetic neuropathy (Chronic) Skin fissure (Chronic) Callus of foot (Chronic) Onychomycosis (Chronic) Erectile dysfunction (Chronic) BPH (benign prostatic hyperplasia) (Chronic) 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) Medical History (Updated 08/09/22 @ 16:31 by Ranulfo Ivan PA-C) Acid reflux Anxiety Asthma Bleeding BPH (benign prostatic hyperplasia) Callus of foot Cellulitis Cellulitis of face Cellulitis of left ear Chest wall abscess Chronic back pain Daytime sleepiness Dehiscence of amputation stump Depression Diabetic neuropathy Erectile dysfunction High blood pressure Hypernatremia Hyponatremia Improving with treatment. Insomnia Insulin dependent diabetes mellitus with complications Joint pain Liver disease Thrombocytopenia. Migraines Muscle pain Obesity Onychomycosis Open wound of right great toe Osteomyelitis of left foot Pontine lesion Clinically this is chronic and not CPM Restless leg syndrome Scrotal abscess Sepsis syndrome Skin fissure Stomach ulcer Thrombocytopenia concurrent with and due to alcoholism CT evidence of cirrhosis and probable hyperspenism Type 2 diabetes mellitus Glucose yesterday 242. Place PICC line for anticipated home IV therapy. If no osteomyelitis or bony debridement completed at the time of surgery today I am anticipating 2 weeks of treatment. I may extend to 4 to 6 weeks depending on intraoperative findings. I would recommend both Vanco and cefepime at this time until final cultures available. Weekly labs recommended while outpatient. To include CBC CMP sed rate and CRP. No previous history of MRSA. If MRSE identified, Vanco will be utilized. I will modify antibiotic therapy once cultures are finalized. Please contact me once cultures are finalized. I would be happy to see the patient in clinic follow-up following hospital discharge. Duration of IV therapy yet to be determined. If MSSA or strep identified, Ancef may be utilized with return to oral minocycline additionally to cover the MRSA in the right great toe. Thank you very much for let me be involved in Tarun consultative care. Surgical History History of hand surgery Left hand History of incision and drainage 10/31/2019-I & D of right lateral chest wall abscess Family History Mother Hypertension Diabetes Arthritis Stroke Social History marital status: single occupational status: employed alcohol intake frequency: holiday/special occasion only substance use type: does not use MEDS/ALLERGIES Home Medications and Allergies Home Medications Medication Instructions Recorded Confirmed Type Accu-Chek 1 each FS ACHS 02/23/20 01/31/21 Rx acetaminophen 300 mg-codeine 30 mg 1 tab PO Q4 PRN Pain 03/10/20 01/31/21 History tablet insulin glargine 100 unit/mL (3 60 unit subcut BID 04/29/20 01/31/21 History mL) subcutaneous pen (Lantus Solostar U-100 Insulin) methocarbamol 750 mg tablet 750 mg PO HS 04/29/20 01/31/21 History diphenhydramine 25 2 tab PO HS PRN Sleep 10/03/20 01/31/21 History mg-acetaminophen 500 mg tablet (Tylenol PM Extra Strength) insulin lispro 100 unit/mL 1 - 20 sliding scale dose subcut 10/03/20 01/31/21 History subcutaneous solution (Humalog ACHS hyperglycemia U-100 Insulin) hydrochlorothiazide 12.5 mg tablet 12.5 mg PO DAILY 12/16/20 01/31/21 History minocycline 100 mg capsule 100 mg PO BID 12/16/20 01/31/21 History ropinirole 2 mg tablet 2 mg PO HS 12/16/20 01/31/21 History sertraline 25 mg tablet 25 mg PO HS 12/16/20 01/31/21 History atorvastatin 20 mg tablet 20 mg PO DAILY 12/17/20 01/31/21 History potassium chloride 10 mEq 20 meq PO DAILY 12/17/20 01/31/21 History tablet,extended release Allergies Allergy/AdvReac Type Severity Reaction Status Date / Time latex Allergy Mild Rash Verified 08/09/22 13:52 Penicillins Allergy Mild Hives Verified 08/09/22 13:52 EXAM Constitutional Vitals: Temp Pulse Resp BP Pulse Ox O2 Del Method 97.8 F 72 16 120/64 98 08/09/22 13:49 08/09/22 16:48 08/09/22 13:49 08/09/22 16:48 08/09/22 16:48 08/09/22 13:49 DATA Data Completed and Pending Labs: Labs from last 24 hours 08/09/22 08/09/22 08/09/22 14:23 14:20 14:20 WBC RBC Hgb Hct MCV MCH MCHC RDW Plt Count MPV Immature Gran % (Auto) Neut % (Auto) Lymph % (Auto) Gooding % (Auto) Eos % (Auto) Baso % (Auto) Lymph # (Auto) Gooding # (Auto) Eos # (Auto) Baso # (Auto) Immature Gran # Absolute Neutrophils ESR POC VBG pH 7.47 H POC VBG pCO2 at Temp 30.6 L POC VBG pO2 56 H POC VBG HCO3 22.1 L POC VBG Total CO2 23.0 L POC Venous O2 Sat 91.0 H POC VBG Base Excess -2.0 VBG Lactic Acid 1.5 Sodium 132 L Potassium 3.9 Chloride 102 Carbon Dioxide 21 L Anion Gap 9.0 BUN 8 Creatinine 0.7 GFR Calculation 108 Glucose 294 H Calcium 8.6 Total Bilirubin 1.7 H AST 40 H ALT 19 Alkaline Phosphatase 103 C-Reactive Protein 1.00 H Total Protein 8.0 Albumin 2.5 L Globulin 5.5 H Albumin/Globulin Ratio 0.5 L Procalcitonin 0.16 H 08/09/22 14:20 WBC 3.3 L RBC 3.10 L Hgb 10.3 L Hct 30.2 L MCV 97.4 MCH 33.2 MCHC 34.1 RDW 15.0 H Plt Count 55 L MPV 12.2 Immature Gran % (Auto) 0.3 Neut % (Auto) 56.5 Lymph % (Auto) 31.8 Gooding % (Auto) 6.0 Eos % (Auto) 5.1 Baso % (Auto) 0.3 Lymph # (Auto) 1.06 L Gooding # (Auto) 0.20 Eos # (Auto) 0.17 Baso # (Auto) 0.01 Immature Gran # 0.01 Absolute Neutrophils 1.88 ESR 64 H POC VBG pH POC VBG pCO2 at Temp POC VBG pO2 POC VBG HCO3 POC VBG Total CO2 POC Venous O2 Sat POC VBG Base Excess VBG Lactic Acid Sodium Potassium Chloride Carbon Dioxide Anion Gap BUN Creatinine GFR Calculation Glucose Calcium Total Bilirubin AST ALT Alkaline Phosphatase C-Reactive Protein Total Protein Albumin Globulin Albumin/Globulin Ratio Procalcitonin A/P Narrative A/P Narrative: Assessment: 52 year old Male with a history of type 2 diabetes mellitus, hypert ension, left BKA admitted for expedited wound care of a right surgical wrist incision wound and left BKA wound. These wounds do not appear to be infected. 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 -Dr. Mir consulted. -Follow blood cultures from ED. -Lantus 30 units at bedtime, correction Humalog SSIhigh. -Check hemoglobin A1c. -Home medication reconciliation. -Consistent carbohydrate diet, n.p.o. after midnight. Time Spent With Patient Time: Total time spent is greater than 50% in coordination of care (as documented) at patient's floor/unit and/or counseling patient:
[2022-08-09] MEDS ORDERED: ONDANSETRON 4 MG/2 ML VIAL IV PRN (17:33)
[2022-08-09] MEDS ORDERED: DEXTROSE 31 GM ORAL.SUSP PO PRN (17:33)
[2022-08-09] MEDS ORDERED: DEXTROSE 50% 50 ML VIAL IV PRN (17:33)
--- NOTE | 2022-08-09 18:38 | Internal Med Progress Note ---
SUBJECTIVE Subjective Patient information: Note initiated : 08/09/22 at 6:37 pm Service Date, if different from initiated Date: [] Patient: Tarun Molina 52 y/o M admitted on 08/09/22 for wound. Chief Complaint: [] Interval history: Mr. Molina is a 52 year old Male with a history of type 2 diabetes mellitus, hypertension, liver cirrhosis, left BKA who presents to the ED for feeling tired. Patient has a left BKA wound that has recently opened up due to a poorly fitting prosthesis. The patient has a right wrist wound from a recent surgery for an infection in his right wrist. The patient was apparently placed in handcuffs and incarcerated, the handcuffs injured his right wrist which resulted in a right wrist infection for which she was hospitalized in [place]. Patient's main concern now is that he sometimes gets septic around the time that he begins to feel tired. In the emergency department, the patient was afebrile, white blood cell count was low similar to prior lab values, the patient has a chronic thrombocytopenia, ESR was 64, CRP was 1.0, upper limit of normal is 0.8, procalcitonin of 0.16. Hospital medicine was consulted for admission, the patient's right wrist wound and left BKA wound do not appear to be acutely infected. The patient will be admitted for expedited wound care and possible antibiotic treatment if he develops symptoms and signs of infection. 1010 Vital stable overnight, no fevers. Resting comfortably this morning, awaiting evaluation by Dr. Ram. Morning glucose was 199, increase Lantus to 40 units daily, continue correction Humalog SSIhigh dose. Hemoglobin A1c was 7.5. Physical exam Head: Atraumatic, normal inspection. Eyes: normal appearance, no scleral icterus. Neck: full ROM Respiratory: no respiratory distress. Cardiovascular: normal rate and rhythm, S1, S2. GI/Abdominal: soft, nontender, no guarding. Extremities: Left BKA. Neurological: CN II-XII intact, intact motor, intact sensation. Psychiatric: normal mood. Skin: Open wound on left BKA stump, does not appear to be acutely infected. Right wrist surgical incision appears to be mildly dehisced, does not appear to be acutely infected. Constitutional Vitals: Vital Signs Temp Pulse Resp BP Pulse Ox O2 Del Method 97.8 F 75 16 146/80 98 10/09/22 17:57 08/09/22 17:57 08/09/22 17:57 08/09/22 17:57 08/09/22 17:57 08/09/22 17:57 Period Temp Pulse Resp BP Sys/Garcia Pulse Ox O2 Del Method O2 Flow Rate Last 24 Hr 97.8 F-97.8 F 69-79 16-16 113-146/64-86 94-99 Room Air-Room Air Intake and Output 08/09/22 08/09/22 08/09/22 05:59 13:59 21:59 Intake Total 1480 Output Total 800 Balance 680 Weight 103.283 kg Patient Weight 08/10/22 05:59 Weight 103.283 kg Intake & Output: Intake & Output 08/09/22 08/09/22 08/09/22 05:59 13:59 21:59 Intake Total 1480 Output Total 800 Balance 680 Weight 103.283 kg Intake: IV 1000 Sodium Chloride 0.9% 1,000 ml @ 1000 Wide Open IV BOLUS ONE Rx#: [id number] Oral 480 Output: Void Amount 800 Other: Urine Color Dark Yellow OBJ DATA Labs CBC & Chem 7: 08/09/22 14:20 08/10/22 05:49 Labs: Abnormal Lab Results 08/09/22 08/09/22 08/09/22 14:23 14:20 14:20 WBC RBC Hgb Hct RDW Plt Count Lymph # (Auto) ESR POC VBG pH 7.47 H POC VBG pCO2 at Temp 30.6 L POC VBG pO2 56 H POC VBG HCO3 22.1 L POC VBG Total CO2 23.0 L POC Venous O2 Sat 91.0 H Sodium 132 L Carbon Dioxide 21 L Glucose 294 H Total Bilirubin 1.7 H AST 40 H C-Reactive Protein 1.00 H Albumin 2.5 L Globulin 5.5 H Albumin/Globulin Ratio 0.5 L Procalcitonin 0.16 H 08/09/22 14:20 WBC 3.3 L RBC 3.10 L Hgb 10.3 L Hct 30.2 L RDW 15.0 H Plt Count 55 L Lymph # (Auto) 1.06 L ESR 64 H POC VBG pH POC VBG pCO2 at Temp POC VBG pO2 POC VBG HCO3 POC VBG Total CO2 POC Venous O2 Sat Sodium Carbon Dioxide Glucose Total Bilirubin AST C-Reactive Protein Albumin Globulin Albumin/Globulin Ratio Procalcitonin Meds: Medications Acetaminophen (Acetaminophen 325 Mg Tablet) 650 mg PO Q6HP PRN; Protocol PRN Reason: Per Pain Protocol/Fever > 101 Dextrose (Dextrose 50% 50 Ml Vial) 0 ml IV UD PRN PRN Reason: Per Sliding Scale Diagnostic Test (Pha) (Accu-Chek 1 Each Strip) 1 each FS ACHS GLORIA Docusate Sodium (Docusate Sodium 100 Mg Capsule) 100 mg PO BID GLORIA Glucose (Dextrose 31 Gm Oral.Susp) 15 gm PO PRN PRN PRN Reason: Hypoglycemia Insulin Glargine (Insulin Glargine, Human 1 Unit/0.01 Ml) 30 unit SQ HS GLORIA Insulin Human Lispro (Insulin Lispro 1 Unit/0.01 Ml Unit) 0 unit SQ ACHS GLORIA; P rotocol Ondansetron HCl (Ondansetron 4 Mg/2 Ml Vial) 4 mg IV Q6HP PRN PRN Reason: Nausea And Vomiting Senna (Sennosides 1 Tablet) 2 tab PO HS GLORIA Sodium Chloride (0.9 % Sodium Chloride 10 Ml Syringe) 10 ml IV Q8 GLORIA A/P Narrative A/P Narrative: Assessment: 52 year old Male with a history of type 2 diabetes mellitus, hypertension, left BKA admitted for expedited wound care of a right surgical wrist incision wound and left BKA wound. These wounds do not appear to be infected. 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 -Dr. Mir consulted. -Follow blood cultures from ED. -Lantus 40 units at bedtime, correction Humalog SSIhigh. -Screen for HIV -Home medication reconciliation. -Consistent carbohydrate diet, n.p.o. after midnight. Time Spent With Patient Time: Total time spent is greater than 50% in coordination of care (as documented) at patient's floor/unit and/or counseling patient:
[2022-08-09] MEDS: INSULIN LISPRO 1 UNIT/0.01 ML UNIT SQ SCH ×2 (18:53→20:27)
[2022-08-09] MEDS: SENNOSIDES 1 TABLET PO SCH (20:19)
[2022-08-09] MEDS: 0.9 % SODIUM CHLORIDE 10 ML SYRINGE IV SCH (20:19)
[2022-08-09] MEDS: DOCUSATE SODIUM 100 MG CAPSULE PO SCH (20:19)
[2022-08-09] MEDS ORDERED: INSULIN GLARGINE, HUMAN 1 UNIT/0.01 ML SQ SCH (21:00)
[2022-08-10] MEDS: 0.9 % SODIUM CHLORIDE 10 ML SYRINGE IV SCH ×3 (05:53→20:41)
[2022-08-10] MEDS: ACETAMINOPHEN 325 MG TABLET PO PRN (06:59)
[2022-08-10] MEDS: INSULIN LISPRO 1 UNIT/0.01 ML UNIT SQ SCH ×4 (07:01→20:54)
[2022-08-10 07:07] LABS: Estimated Average Glucose(eAG) 169 mg/dL; Hemoglobin A1C 7.5 % Hgb (4.0-6.0)
[2022-08-10 07:12] LABS: Blood Urea Nitrogen 8 mg/dL (6-20); Calcium 8.3 mg/dL (8.6-10.4); Carbon Dioxide 23 mmol/L (22-30); Chloride 103 mmol/L (96-108); Glomerular Filtration Rate 115; Glucose 216 mg/dL (70-105)
[2022-08-10] MEDS: DOCUSATE SODIUM 100 MG CAPSULE PO SCH ×2 (07:13→20:54)
[2022-08-10] MEDS: LINEZOLID 600 MG TABLET PO SCH ×2 (08:48→20:54)
--- NOTE | 2022-08-10 09:30 | General Surgery Consult Note ---
HPI Data of Consult Consult date: 08/10/22 Requesting physician: Juanjose Hwang Consult Narrative Patient Information: Note initiated : 08/10/22 at 9:26 am Service Date, if different from initiated Date: [] Patient: Tarun Molina 52 y/o M admitted on 08/09/22 for wound. Chief Complaint: [] Reason for consult: Wound care and wound management LEFT BKA and dorsal surface RIGHT wrist. cc:: I saw this 52M patient admitted via ER last night. Reviewed notes from ER and Hospitalist. Examined patient's wounds along with Gaurang REAVES. CC: Juanjose Hwang MD Gastrointestinal Gastrointestinal: Present as per HPI and other (H/O Alchoholic Cirrhosis with leucopenia and thrombocytopenia) Musculoskeletal Musculoskeletal: Present other (Left BKA in 2018) Integumentary Integumentary: Present wounds (Chronic open wound over dorsal surface of RIGHT wrist and distal foearm. NO signs of acute inflammation or infection.) Additional comments: Stage 2 acute wound of LEFT BKA stump with serous oozing and exfoliating moisture dermatitis due to BKA prosthesis irritation. CLINICALLY this is a mixed infection (Staph / Strep) Patient had undergone some treatment with IV antibiotics while hospitalized at [place], [place]. He signed out AMA and drove to [place] and presented to ER with evolving constitutional and local symptoms. PFSH PFSH All Active Problems Cellulitis of right wrist (Acute) Essential hypertension (Acute) Anemia, normocytic normochromic (Acute) Post-op bleeding (Acute) Dehiscence of wound (Acute) Amputation stump complication (Acute) Below-knee amputation of left lower extremity with complication (Acute) Group B streptococcal infection (Acute) Cellulitis and abscess of left lower extremity (Acute) Thrombocytopenia (Acute) Rash (Acute) History of below-knee amputation of left lower extremity (Acute) Hyponatremia (Acute) Fever (Acute) Sinus tachycardia (Acute) Cellulitis of great toe of right foot (Acute) Diabetic foot ulcer (Acute) Osteomyelitis of great toe of right foot (Acute) Anemia, macrocytic (Acute) Deep postoperative wound infection (Acute) Cellulitis (Acute) Hyponatremia (Acute) Hyperglycemia (Acute) Self-care deficit for hygiene (Acute) Stomach ulcer (Chronic) Migraines (Chronic) Liver disease (Chronic) Joint pain (Chronic) Insomnia (Chronic) High blood pressure (Chronic) Type 2 diabetes mellitus (Chronic) Depression (Chronic) Daytime sleepiness (Chronic) Muscle pain (Chronic) Asthma (Chronic) Anxiety (Chronic) Acid reflux (Chronic) Chronic back pain (Chronic) Obesity (Chronic) Restless leg syndrome (Chronic) Diabetic neuropathy (Chronic) Skin fissure (Chronic) Callus of foot (Chronic) Onychomycosis (Chronic) Erectile dysfunction (Chronic) BPH (benign prostatic hyperplasia) (Chronic) 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 Insomnia Insulin dependent diabetes mellitus with complications Joint pain Liver disease Thrombocytopenia. Migraines Muscle pain Obesity Onychomycosis Open wound of right great toe Osteomyelitis of left foot Pontine lesion Clinically this is chronic and not CPM Restless leg syndrome Scrotal abscess Sepsis syndrome Skin fissure Stomach ulcer Thrombocytopenia concurrent with and due to alcoholism CT evidence of cirrhosis and probable hyperspenism Type 2 diabetes mellitus Glucose yesterday 242. Place PICC line for anticipated home IV therapy. If no osteomyelitis or bony debridement completed at the time of surgery today I am anticipating 2 weeks of treatment. I may extend to 4 to 6 weeks depending on intraoperative findings. I would recommend both Vanco and cefepime at this time until final cultures available. Weekly labs recommended while outpatient. To include CBC CMP sed rate and CRP. No previous history of MRSA. If MRSE identified, Vanco will be utilized. I will modify antibiotic therapy once cultures are finalized. Please contact me once cultures are finalized. I would be happy to see the patient in clinic follow-up following hospital discharge. Duration of IV therapy yet to be determined. If MSSA or strep identified, Ancef may be utilized with return to oral minocycline additionally to cover the MRSA in the right great toe. Thank you very much for let me be involved in Tarun consultative care. Surgical History History of hand surgery Left hand History of incision and drainage 10/31/2019-I & D of right lateral chest wall abscess Family History Mother Hypertension Diabetes Arthritis Stroke Social History marital status: single occupational status: employed smoking status: Never smoker alcohol intake frequency: holiday/special occasion only substance use type: does not use MEDS/ALLERGIES Home Medications and Allergies Home Medications Medication Instructions Recorded Confirmed Type Accu-Chek 1 each FS ACHS 02/23/20 08/09/22 Rx acetaminophen 300 mg-codeine 30 mg 1 tab PO Q4 PRN Pain 03/10/20 08/09/22 History tablet insulin glargine 100 unit/mL (3 60 unit subcut BID 04/29/20 08/09/22 History mL) subcutaneous pen (Lantus Solostar U-100 Insulin) Allergies Allergy/AdvReac Type Severity Reaction Status Date / Time latex Allergy Mild Rash Verified 08/09/22 13:52 Penicillins Allergy Mild Hives Verified 08/09/22 13:52 Physical Examination Vital Signs Vital signs: Temp Pulse Resp BP Pulse Ox O2 Del Method 98.5 F 73 20 119/65 97 08/10/22 07:48 08/10/22 07:48 08/10/22 07:48 08/10/22 07:48 08/10/22 07:48 08/10/22 07:48 General physical appearance General physical exam: well developed, well nourished, no distress, moderate pain, chronically ill and obese Eyes Eye exam: PERRL and normal ocular movement ENT ENT exam: normal pinna, normal nares, normal mucosa and no congestion Head Head exam IM: Present atraumatic and normocephalic Neck Neck exam: no masses and no venous distension Cardiovascular Cardiovascular exam IM: Present normal rate and rhythm Respiratory Respiratory exam: normal respiratory effort and clear to auscultation Abdomen Abdomen: Present soft, non tender and bowel sounds Integumentary Integumentary: Present other (Wound over dorsal apect of RIGHT wrist and distal forearm. Densely adherent eschar Stage 5. Suspect feom IV site with extravasation. See photograph in chart. Stage 2 moisture dermatitis of BKA stump with exfolaition of epidermis) Neurologic Neurologic: Present normal coordination and other (Diabetes with peripheral neuropathy.) Musculoskeletal Musculoskeletal: Present other (LEFT below amputation with moisture dermatits and exfoliating epidermis. ) Psychiatric Psychiatric: Present oriented to time, oriented to person, oriented to place, speech is normal and memory intact Results Labs Result diagrams: 08/11/22 06:05 08/11/22 06:05 Labs: Abnormal lab results 08/09/22 08/09/22 08/09/22 Range/Units 14:20 14:20 14:20 WBC 3.3 L (4.5-11.0) K/mcL RBC 3.10 L (4.63-6.08) M/mcL Hgb 10.3 L (13.7-17.5) g/dL Hct 30.2 L (40.1-51.0) % RDW 15.0 H (11.5-14.5) % Plt Count 55 L (140-440) K/mcL Lymph # (Auto) 1.06 L (1.50-4.80) K/mcL ESR 64 H (0-20) mm/hr POC VBG pH (7.32-7.42) POC VBG pCO2 at Temp (41-51) POC VBG pO2 (25-40) POC VBG HCO3 (24-28) POC VBG Total CO2 (25-29) POC Venous O2 Sat (40-70) Sodium 132 L (133-145) mmol/L Carbon Dioxide 21 L (22-30) mmol/L Anion Gap (8.0-16.0) Creatinine (0.7-1.2) mg/dL Glucose 294 H (70-105) mg/dL Hemoglobin A1c (4.0-6.0) % Hgb Calcium (8.6-10.4) mg/dL Total Bilirubin 1.7 H (0.1-1.0) mg/dL AST 40 H (<40) U/L C-Reactive Protein 1.00 H (0.03-0.80) mg/dL Albumin 2.5 L (3.2-5.2) gm/dL Globulin 5.5 H (2.2-3.7) gm/dL Albumin/Globulin Ratio 0.5 L (1.0-2.3) Procalcitonin 0.16 H (<0.10) ng/mL 08/09/22 08/10/22 Range/Units 14:23 05:49 WBC (4.5-11.0) K/mcL RBC (4.63-6.08) M/mcL Hgb (13.7-17.5) g/dL Hct (40.1-51.0) % RDW (11.5-14.5) % Plt Count (140-440) K/mcL Lymph # (Auto) (1.50-4.80) K/mcL ESR (0-20) mm/hr POC VBG pH 7.47 H (7.32-7.42) POC VBG pCO2 at Temp 30.6 L (41-51) POC VBG pO2 56 H (25-40) POC VBG HCO3 22.1 L (24-28) POC VBG Total CO2 23.0 L (25-29) POC Venous O2 Sat 91.0 H (40-70) Sodium 132 L (133-145) mmol/L Carbon Dioxide (22-30) mmol/L Anion Gap 6.0 L (8.0-16.0) Creatinine 0.6 L (0.7-1.2) mg/dL Glucose 216 H (70-105) mg/dL Hemoglobin A1c 7.5 H (4.0-6.0) % Hgb Calcium 8.3 L (8.6-10.4) mg/dL Total Bilirubin (0.1-1.0) mg/dL AST (<40) U/L C-Reactive Protein (0.03-0.80) mg/dL Albumin (3.2-5.2) gm/dL Globulin (2.2-3.7) gm/dL Albumin/Globulin Ratio (1.0-2.3) Procalcitonin (<0.10) ng/mL Diabetes panel 08/09/22 08/10/22 Range/Units 14:20 05:49 Sodium 132 L 132 L (133-145) mmol/L Potassium 3.9 3.7 (3.3-5.1) mmol/L Chloride 102 103 (96-108) mmol/L Carbon Dioxide 21 L 23 (22-30) mmol/L BUN 8 8 (6-20) mg/dL Creatinine 0.7 0.6 L (0.7-1.2) mg/dL Glucose 294 H 216 H (70-105) mg/dL Hemoglobin A1c 7.5 H (4.0-6.0) % Hgb Calcium 8.6 8.3 L (8.6-10.4) mg/dL AST 40 H (<40) U/L ALT 19 (<40) U/L Alkaline Phosphatase 103 (39-117) U/L Total Protein 8.0 (5.9-8.4) gm/dL Albumin 2.5 L (3.2-5.2) gm/dL Calcium panel 08/09/22 08/10/22 Range/Units 14:20 05:49 Calcium 8.6 8.3 L (8.6-10.4) mg/dL Albumin 2.5 L (3.2-5.2) gm/dL Pituitary panel 08/09/22 08/10/22 Range/Units 14:20 05:49 Sodium 132 L 132 L (133-145) mmol/L Potassium 3.9 3.7 (3.3-5.1) mmol/L Chloride 102 103 (96-108) mmol/L Carbon Dioxide 21 L 23 (22-30) mmol/L BUN 8 8 (6-20) mg/dL Creatinine 0.7 0.6 L (0.7-1.2) mg/dL Glucose 294 H 216 H (70-105) mg/dL Calcium 8.6 8.3 L (8.6-10.4) mg/dL Adrenal panel 08/09/22 08/10/22 Range/Units 14:20 05:49 Sodium 132 L 132 L (133-145) mmol/L Potassium 3.9 3.7 (3.3-5.1) mmol/L Chloride 102 103 (96-108) mmol/L Carbon Dioxide 21 L 23 (22-30) mmol/L BUN 8 8 (6-20) mg/dL Creatinine 0.7 0.6 L (0.7-1.2) mg/dL Glucose 294 H 216 H (70-105) mg/dL Calcium 8.6 8.3 L (8.6-10.4) mg/dL Total Bilirubin 1.7 H (0.1-1.0) mg/dL AST 40 H (<40) U/L ALT 19 (<40) U/L Alkaline Phosphatase 103 (39-117) U/L Total Protein 8.0 (5.9-8.4) gm/dL Albumin 2.5 L (3.2-5.2) gm/dL All other labs normal. A/P Narrative A/P Narrative: Assessment: INITIAL Encounter. Open wound with Dry adherent eschar RIGHT wrist and lower forearm (s/p) surgical debridement in OR at [facility] Moisture dermatitis. CSSSi LEFT below knee amputation stump. Comorbidities: Alcohol cirrhosis. Thrombocytopenia, leucopenia DM2 Peripheral neuropathy PAD Plan of Treatment: Plan: Local wound care at this time. ONCE a day. Clean with VASHE and MIST treatment LEFT BKA stump and Right Wrist wound Bactroban or Mupirocin ointment to both wounds Mepilex border foam dressing for RIGHT wrist. Adaptic, Kerlix to Left BKA stump. DENA bandage over Kerlix LEFT BKA stump. Empiric PO antibiotics For LEFT leg wound. Plan reviewed and discussed with Dr. Hwang. Will follow patient in hospital. Time Spent With Patient Time: Total time spent is greater than 50% in coordination of care (as documented) at patient's floor/unit and/or counseling patient: Total time spent with greater than 50% in coordination of care (as documented) at patient's floor/unit and/or counseling patient:: 25 - 35 minutes
[2022-08-10] MEDS: MUPIROCIN OINT 2% 22GM TOPICAL SCH ×3 (17:26→20:58)
[2022-08-10] MEDS: SENNOSIDES 1 TABLET PO SCH ×2 (20:54→20:57)
[2022-08-10] MEDS ORDERED: INSULIN GLARGINE, HUMAN 1 UNIT/0.01 ML SQ SCH (21:00)
[2022-08-11] MEDS: 0.9 % SODIUM CHLORIDE 10 ML SYRINGE IV SCH ×2 (05:14→16:54)
[2022-08-11] MEDS: ACETAMINOPHEN 325 MG TABLET PO PRN ×2 (06:31→13:49)
[2022-08-11] MEDS: INSULIN LISPRO 1 UNIT/0.01 ML UNIT SQ SCH ×3 (07:35→16:54)
[2022-08-11 07:39] LABS: Basophils # (Auto) 0.01 K/mcL (0.00-0.30); Basophils % (Auto) 0.3 % (0.0-2.0); Eosinophils # (Auto) 0.16 K/mcL (0.00-0.70); Eosinophils % (Auto) 4.3 % (0.0-7.0); Hematocrit 29.2 % (40.1-51.0); Hemoglobin 10.2 g/dL (13.7-17.5); Lymphocytes # (Auto) 1.11 K/mcL (1.50-4.80); Lymphocytes % (Auto) 30.2 % (15.5-49.0); Mean Cell Volume 96.7 fL (80.0-100.0); Mean Corpuscular HGB Conc 34.9 g/dL (31.0-36.0); Mean Platelet Volume 10.5 fL (8.8-12.5); Monocytes # (Auto) 0.26 K/mcL (0.10-0.90); Monocytes % (Auto) 7.1 % (1.0-12.0); Neutrophils % (Auto) 57.8 % (38.0-78.0); Platelet Count 56 K/mcL (140-440); RBC 3.02 M/mcL (4.63-6.08); Red Cell Distribution Width 15.1 % (11.5-14.5); WBC 3.7 K/mcL (4.5-11.0)
[2022-08-11 07:51] LABS: ALT/SGPT 15 U/L (<40); AST/SGOT 35 U/L (<40); Albumin 2.3 gm/dL (3.2-5.2); Albumin/Globulin Ratio 0.4 (1.0-2.3); Alkaline Phosphatase 97 U/L (39-117); Bilirubin,Total 1.4 mg/dL (0.1-1.0); Blood Urea Nitrogen 7 mg/dL (6-20); Calcium 8.2 mg/dL (8.6-10.4); Carbon Dioxide 21 mmol/L (22-30); Chloride 102 mmol/L (96-108); Globulin 5.4 gm/dL (2.2-3.7); Glomerular Filtration Rate 115; Glucose 233 mg/dL (70-105)
[2022-08-11] MEDS: LINEZOLID 600 MG TABLET PO SCH (08:39)
[2022-08-11] MEDS: DOCUSATE SODIUM 100 MG CAPSULE PO SCH (08:41)
--- NOTE | 2022-08-11 11:24 | General Surgery Progress Note ---
SUBJECTIVE Subjective Patient information: Note initiated : 08/11/22 at 11:13 am Service Date, if different from initiated Date: [] Patient: Tarun Molina 52 y/o M admitted on 08/09/22 for wound. Chief Complaint: [] Additional PMFSH (Level 3 Only): Patient seen with Elier Hernandez RN and Flora REAVES, wound care nurses and med students from [facility] [employer]. Reviewed wounds RIGHT dorsal wrist and forearm and LEFT BKA stump. Constitutional Vitals: Vital Signs Temp Pulse Resp BP Pulse Ox O2 Del Method 98.5 F 72 20 121/72 97 08/11/22 07:51 08/11/22 07:51 08/11/22 07:51 08/11/22 07:51 08/11/22 07:51 08/11/22 07:51 Period Temp Pulse Resp BP Sys/Garcia Pulse Ox O2 Del Method O2 Flow Rate Last 24 Hr 98.1 F-98.7 F 72-78 12-20 121-130/67-77 96-98 Room Air-Room Air Intake and Output 08/10/22 08/11/22 08/11/22 21:59 05:59 13:59 Intake Total 1100 0 480 Output Total 700 625 Balance 400 -625 480 Weight 217 lb Intake & Output: Intake & Output 08/10/22 08/11/22 08/11/22 21:59 05:59 13:59 Intake Total 1100 0 480 Output Total 700 625 Balance 400 -625 480 Weight 217 lb Intake: Oral 1100 0 480 Output: Void Amount 700 625 # of times incontinent of urine 0 Other: Meal Dinner Percent of Meal Consumed 100% Feeding Ability Assist with Tray Set Up Urine Appearance Clear Urine Color Dark Bing Dark Yellow Urine Odor Strong Normal Stool Size Large Stool Color Brown Stool Consistency Dry and Hard Formed Gisell # Voids 0 # Bowel Movements 1 Exam: Resolving inflammatory changes around LEFT BKA stump and surgical wound RIGHT dorsal wrist and lower forearm. Patient now on PO Zyvox. A/P Assessment and plan (1) Wound dehiscence, surgical: Status: Acute Plan Assessment: Responding to local wound care MIST treatments and PO Zyvox He does not have a place to stay Currently asking his friend for help. Plan: Continue current management. Recommend CM to assist with placement. Short time Rehab IF possible. Can follow him at wound care clinic Patient will need ongoing continuity of care.. Narrative A/P Narrative: Assessment: Stalled post surgery wound RIGHT dorsal wrist and distal forearm. Moisture dermatitis of LEFT BKA stump leg. Plan of Treatment: Plan: 08/11/2022 Local wound care, MIST therapy PO antibiotics. Zyvox. CM to assist with placement. Wound care clinic f/u after discharge. Local wound care, MIST therapy PO antibiotics. Zyvox. CM to assist with placement. Wound care clinic f/u after discharge.Plan: Local wound care at this time. ONCE a day. Clean with VASHE and MIST treatment LEFT BKA stump and Right Wrist wound Bactroban or Mupirocin ointment to both wounds Mepilex border foam dressing for RIGHT wrist. Adaptic, Kerlix to Left BKA stump. DENA bandage over Kerlix LEFT BKA stump. Plan: 08/10/2022 Empiric PO antibiotics For LEFT leg wound. Plan reviewed and discussed with Dr. Hwang. Will follow patient in hospital. Time Spent With Patient Time: Total time spent is greater than 50% in coordination of care (as documented) at patient's floor/unit and/or counseling patient: Total time spent with greater than 50% in coordination of care (as documented) at patient's floor/unit and/or counseling patient:: 25 - 35 minutes
[2022-08-11] MEDS: MUPIROCIN OINT 2% 22GM TOPICAL SCH (11:25)
--- NOTE | 2022-08-11 16:18 | Internal Med Progress Note ---
SUBJECTIVE Subjective Patient information: Note initiated : 08/11/22 at 4:10 pm Service Date, if different from initiated Date: [] Patient: Tarun Molina 52 y/o M admitted on 08/09/22 for wound. Chief Complaint: [] Interval history: 08/11: Fasting glucose 230 this morning. Blood and wound cultures no growth to date. Otherwise there is no other major overnight events. Patient has no complaints at the moment. Dr. Thompson clears patient from surgical standpoint. Increase Insulin Lantus from 40 to 45 unit SQ HS for better glycemic coverage. Continue SSI AC HS. Continue Linezolid PO. Switch from observation to inpatient. Physical therapy evaluation for discharge safety assessment. Constitutional Vitals: Vital Signs Temp Pulse Resp BP Pulse Ox O2 Del Method 36.9 C 72 20 133/76 96 08/11/22 12:00 08/11/22 12:00 08/11/22 12:00 08/11/22 12:00 08/11/22 12:00 08/11/22 12:00 Period Temp Pulse Resp BP Sys/Garcia Pulse Ox O2 Del Method O2 Flow Rate Last 24 Hr 36.7 C-37.1 C 72-78 12-20 121-133/67-77 96-98 Room Air-Room Air Intake and Output 08/11/22 08/11/22 08/11/22 05:59 13:59 21:59 Intake Total 0 780 Output Total 625 600 250 Balance -625 180 -250 Intake & Output: Intake & Output 08/11/22 08/11/22 08/11/22 05:59 13:59 21:59 Intake Total 0 780 Output Total 625 600 250 Balance -625 180 -250 Intake: Oral 0 780 Output: Void Amount 625 600 250 # of times incontinent of urine 0 Other: Meal Lunch Percent of Meal Consumed 100% Feeding Ability Independent Urine Appearance Clear Clear Urine Color Dark Yellow Bright Yellow Bright Yellow Urine Odor Normal # Voids 0 Head Head exam: Present atraumatic and normal inspection Eye Eye exam: Present normal appearance ENT ENT exam: Present mucous membranes moist, normal exam and normal external ear exam Neck Neck exam: Present normal inspection Respiratory Respiratory exam: Present normal respiratory exam Cardiovascular Cardiovascular exam: Present normal rate and rhythm GI/Abdominal GI/Abdominal exam: Present normal bowel sounds Extremities Exam Extremities exam: Present full ROM; Absent normal inspection Additional comments: Left BKA wound Right wrist wound Back Exam Back exam: Present normal inspection Neurological Exam Neurological exam: Present alert and oriented X3 Skin Skin exam: Present intact and warm OBJ DATA Labs CBC & Chem 7: 08/11/22 06:05 08/11/22 06:05 Labs: Abnormal Lab Results 08/11/22 08/11/22 08/10/22 06:05 06:05 05:49 WBC 3.7 L RBC 3.02 L Hgb 10.2 L Hct 29.2 L RDW 15.1 H Plt Count 56 L Lymph # (Auto) 1.11 L ESR POC VBG pH POC VBG pCO2 at Temp POC VBG pO2 POC VBG HCO3 POC VBG Total CO2 POC Venous O2 Sat Sodium 130 L 132 L Carbon Dioxide 21 L Anion Gap 7.0 L 6.0 L Creatinine 0.6 L 0.6 L Glucose 233 H 216 H Hemoglobin A1c 7.5 H Calcium 8.2 L 8.3 L Magnesium 1.5 L Total Bilirubin 1.4 H AST C-Reactive Protein Albumin 2.3 L Globulin 5.4 H Albumin/Globulin Ratio 0.4 L Procalcitonin 08/09/22 08/09/22 08/09/22 14:23 14:20 14:20 WBC RBC Hgb Hct RDW Plt Count Lymph # (Auto) ESR POC VBG pH 7.47 H POC VBG pCO2 at Temp 30.6 L POC VBG pO2 56 H POC VBG HCO3 22.1 L POC VBG Total CO2 23.0 L POC Venous O2 Sat 91.0 H Sodium 132 L Carbon Dioxide 21 L Anion Gap Creatinine Glucose 294 H Hemoglobin A1c Calcium Magnesium Total Bilirubin 1.7 H AST 40 H C-Reactive Protein 1.00 H Albumin 2.5 L Globulin 5.5 H Albumin/Globulin Ratio 0.5 L Procalcitonin 0.16 H 08/09/22 14:20 WBC 3.3 L RBC 3.10 L Hgb 10.3 L Hct 30.2 L RDW 15.0 H Plt Count 55 L Lymph # (Auto) 1.06 L ESR 64 H POC VBG pH POC VBG pCO2 at Temp POC VBG pO2 POC VBG HCO3 POC VBG Total CO2 POC Venous O2 Sat Sodium Carbon Dioxide Anion Gap Creatinine Glucose Hemoglobin A1c Calcium Magnesium Total Bilirubin AST C-Reactive Protein Albumin Globulin Albumin/Globulin Ratio Procalcitonin Meds: Medications Acetaminophen (Acetaminophen 325 Mg Tablet) 650 mg PO Q6HP PRN; Protocol PRN Reason: Per Pain Protocol/Fever > 101 Last Admin: 08/11/22 13:49 Dose: 650 mg Dextrose (Dextrose 50% 50 Ml Vial) 0 ml IV UD PRN PRN Reason: Per Sliding Scale Diagnostic Test (Pha) (Accu-Chek 1 Each Strip) 1 each FS [facility] Last Admin: 08/11/22 11:28 Dose: 1 each Docusate Sodium (Docusate Sodium 100 Mg Capsule) 100 mg PO BID [facility] Last Admin: 08/11/22 08:41 Dose: Not Given Glucose (Dextrose 31 Gm Oral.Susp) 15 gm PO PRN PRN PRN Reason: Hypoglycemia Insulin Glargine (Insulin Glargine, Human 1 Unit/0.01 Ml) 45 unit SQ [facility] Insulin Human Lispro (Insulin Lispro 1 Unit/0.01 Ml Unit) 0 unit SQ [facility]; Protocol Last Admin: 08/11/22 12:09 Dose: 6 units Linezolid (Linezolid 600 Mg Tablet) 600 mg PO Q12 [facility]; Protocol Stop: 08/17/22 08:59 Last Admin: 08/11/22 08:39 Dose: 600 mg Mupirocin (Mupirocin Oint 2% 22gm) 1 dose TOPICAL DAILY [facility] Ondansetron HCl (Ondansetron 4 Mg/2 Ml Vial) 4 mg IV Q6HP PRN PRN Reason: Nausea And Vomiting Senna (Sennosides 1 Tablet) 2 tab PO [facility] Last Admin: 08/10/22 20:57 Dose: Not Given Sodium Chloride (0.9 % Sodium Chloride 10 Ml Syringe) 10 ml IV Q8 [facility] Last Admin: 08/11/22 05:14 Dose: 10 ml A/P Assessment and plan (1) Cellulitis of right wrist: Status: Acute (2) Below-knee amputation of left lower extremity with complication: Status: Acute Comment: POD 1 from left BKA irrigation and debridement and revision with secondary wound closure Patient's prevena filled with blood and patient was transferred to inpatient wound vac, will need to work on discharging with new prevena or outpatient wound vac Patient will continue IV antibiotics per Dr. Glover and hospitalist Hospitalist to continue to manage medicine and plan for discharge in next 1-2 days Follow up with Benny Sharif next Wednesday for wound vac removal and wound check Awaiting cultures and bone biopsy results Ortho signing off, if need for questions contact furnace mason provider. (3) Type 2 diabetes mellitus: Status: Chronic Comment: Glucose yesterday 242. Place PICC line for anticipated home IV therapy. If no osteomyelitis or bony debridement completed at the time of surgery today I am anticipating 2 weeks of treatment. I may extend to 4 to 6 weeks depending on intraoperative findings. I would recommend both Vanco and cefepime at this time until final cultures available. Weekly labs recommended while outpatient. To include CBC CMP sed rate and CRP. No previous history of MRSA. If MRSE identified, Vanco will be utilized. I will modify antibiotic therapy once cultures are finalized. Please contact me once cultures are finalized. I would be happy to see the patient in clinic follow-up following hospital discharge. Duration of IV therapy yet to be determined. If MSSA or strep identified, Ancef may be utilized with return to oral minocycline additionally to cover the MRSA in the right great toe. Thank you very much for let me be involved in Tarun consultative care. Qualifiers: Diabetes mellitus complication status: with other specified complication Diabetes mellitus fci insulin use: with roasterman use Qualified Code(s): E11.69 - Type 2 diabetes mellitus with other specified complication; Z79.4 - computer terminal operator (current) use of insulin (4) Essential hypertension: Status: Acute (5) Anemia, normocytic normochromic: Status: Acute Narrative A/P Narrative: Assessment and Plans: 1. Left BKA stump infection: Management as per Dr. Thompson MRSA screening positive, continue Linezolid 2. Right wrist cellulitis: Management as per Dr. Thompson MRSA screening positive, continue Linezolid 3. T2DM: HgA1c Avoid oral hypoglycemics while in the hospital Increase Insulin Lantus from 40 to 45 unit SQ HS for better glycemic coverage Accu Chek AC HS SSI AC HS Hypoglycemia protocol Diabetic diet 4. Essential hypertension: Currently normotensive Continue to monitor 5. Anemia, normocytic normochromic: cbc w/ auto diff in the morning to trend H/H GI ppx: not currently indicated DVT ppx: Lovenox Code status: Full Prognosis: stable Disposition: inpatient med surg; PT Plan of Treatment: Plan: 08/11/2022 Local wound care, MIST therapy PO antibiotics. Zyvox. CM to assist with placement. Wound care clinic f/u after discharge. Local wound care, MIST therapy PO antibiotics. Zyvox. CM to assist with placement. Wound care clinic f/u after discharge.Plan: Local wound care at this time. ONCE a day. Clean with VASHE and MIST treatment LEFT BKA stump and Right Wrist wound Bactroban or Mupirocin ointment to both wounds Mepilex border foam dressing for RIGHT wrist. Adaptic, Kerlix to Left BKA stump. DENA bandage over Kerlix LEFT BKA stump. Plan: 08/10/2022 Empiric PO antibiotics For LEFT leg wound. Plan reviewed and discussed with Dr. Hwang. Will follow patient in hospital. Time Spent With Patient Time: Total time spent is greater than 50% in coordination of care (as documented) at patient's floor/unit and/or counseling patient: QUALITY VTE Deep Vein Thrombosis/Pulmonary Embolism Present on Admission: No
--- NOTE | 2022-08-11 19:10 | Discharge Summary ---
Discharge Provider Provider IMPORTANT FOLLOW-UP INFORMATION FOR PCP: Patient information: Note initiated : 08/11/22 at 7:07 pm Service Date, if different from initiated Date: [] Patient: aTrun Molina 52 y/o M admitted on 08/11/22 for wound, infection. Chief Complaint: [] Date of admission: 08/11/22 16:10 Discharge date: 08/11/22 Attending physician on admission: Juanjose Hwang Consults: 08/09/22 Consult to Physician [CONS] Stat Comment: Consulting Provider: Angel Thompson Reason For Exam: Physician to Consult 08/09/22 16:00 Consult to Physician [CONS] Stat Comment: Consulting Provider: Juanjose Hwang Reason For Exam: Physician to Consult 08/09/22 17:33 Consult to Physician [CONS] Stat Comment: Consulting Provider: Angel Thompson Reason For Exam: Physician to Consult Attending physician on discharge: [facility] COURSE Hospital Course Hospital course: Patient was admitted on August 09, 2022 for 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 MRSA screening positive. Patient was being treated with oral linezolid. Tight glycemic control was achieved with constant adjustment of the insulin therapy. Patient decided to leave [facility] on August 11, 2022. 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 Time Spent with Patient Time attestation: Total time spent providing and/or coordinating discharge services: Time spent: Less than 30 minutes EXAM Constitutional Vitals: Temp Pulse Resp BP Pulse Ox O2 Del Method 36.9 C 78 20 129/73 98 08/11/22 16:00 08/11/22 16:00 08/11/22 16:00 08/11/22 16:00 08/11/22 16:00 08/11/22 16:00 General appearance: cooperative and no acute distress Head Head exam: Present atraumatic and normocephalic Eye Eye exam: Present EOMI and PERRL ENT ENT exam: Present mucous membranes moist, normal exam and normal external ear exam Neck Neck exam: Present normal inspection; Absent lymphadenopathy, tenderness or thyromegaly Respiratory Respiratory exam: Absent accessory muscle use, respiratory distress or wheezes Cardiovascular Cardiovascular exam: Present normal rate and rhythm; Absent JVD GI/Abdominal GI/Abdominal exam: Present normal bowel sounds and soft; Absent organomegaly or tenderness Rectal Rectal exam: Present deferred Extremities Exam Extremities exam: Present full ROM and normal capillary refill; Absent normal inspection or tenderness Additional comments: Left BKA stump with skin dehiscence Right wrist erythema Neurological Exam Neurological exam: Present alert, CN II-XII intact and oriented X3; Absent motor sensory deficit Psychiatric Psychiatric exam: Present normal affect and normal mood; Absent anxious or depressed Skin Skin exam: Present dry and intact Discharge Data Data Completed and Pending Labs on day of discharge: Labs from last 24 hours 08/11/22 08/11/22 06:05 06:05 WBC 3.7 L RBC 3.02 L Hgb 10.2 L Hct 29.2 L MCV 96.7 MCH 33.8 MCHC 34.9 RDW 15.1 H Plt Count 56 L MPV 10.5 Immature Gran % (Auto) 0.3 Neut % (Auto) 57.8 Lymph % (Auto) 30.2 Dawes % (Auto) 7.1 Eos % (Auto) 4.3 Baso % (Auto) 0.3 Lymph # (Auto) 1.11 L Dawes # (Auto) 0.26 Eos # (Auto) 0.16 Baso # (Auto) 0.01 Immature Gran # 0.01 Absolute Neutrophils 2.13 Sodium 130 L Potassium 3.6 Chloride 102 Carbon Dioxide 21 L Anion Gap 7.0 L BUN 7 Creatinine 0.6 L GFR Calculation 115 Glucose 233 H Calcium 8.2 L Phosphorus 3.0 Magnesium 1.5 L Total Bilirubin 1.4 H AST 35 ALT 15 Alkaline Phosphatase 97 Total Protein 7.7 Albumin 2.3 L Globulin 5.4 H Albumin/Globulin Ratio 0.4 L Preliminary micro results at discharge 08/09/22 14:28 Blood Culture - Preliminary Blood 08/09/22 14:22 Blood Culture - Preliminary Blood Discharge Plan Patient/Caregiver Discharge Instructions Prescriptions: No Action Accu-Chek 1 EACH strip 1 each FS ACHS 0RF acetaminophen-codeine 1 TAB tablet 1 tab PO Q4 PRN (Reason: Pain) Rx Instructions: 300/60 mg insulin glargine [Lantus Solostar U-100 Insulin] 100 unit/mL (3 mL) insulin pen 60 unit SUBCUT BID Follow Up Plan Follow up with: Peggy Aquino PA-C [Physician] - Patient Disposition: Left Against Medical Advice Plan of Treatment: Plan: 08/11/2022 Local wound care, MIST therapy PO antibiotics. Zyvox. CM to assist with placement. Wound care clinic f/u after discharge. Local wound care, MIST therapy PO antibiotics. Zyvox. CM to assist with placement. Wound care clinic f/u after discharge.Plan: Local wound care at this time. ONCE a day. Clean with VASHE and MIST treatment LEFT BKA stump and Right Wrist wound Bactroban or Mupirocin ointment to both wounds Mepilex border foam dressing for RIGHT wrist. Adaptic, Kerlix to Left BKA stump. DENA bandage over Kerlix LEFT BKA stump. Plan: 08/10/2022 Empiric PO antibiotics For LEFT leg wound. Plan reviewed and discussed with Dr. Hwang. Will follow patient in hospital. Prognosis: Fair QUALITY VTE Deep Vein Thrombosis/Pulmonary Embolism Present on Admission: No
[2022-08-11] MEDS ORDERED: INSULIN GLARGINE, HUMAN 1 UNIT/0.01 ML SQ SCH (21:00)
[2022-08-12] MEDS ORDERED: ENOXAPARIN 40 MG/0.4 ML SYRINGE SQ SCH (09:00)
[2022-08-12] MEDS ORDERED: MUPIROCIN OINT 2% 22GM TOPICAL SCH (09:00)
== END 2022-08-11 18:50 | disposition left against medical advice (07) | DRG 565 ==
LOC: MEDSUR 13:46 → ED 13:46 → MEDSUR 17:50
PROVIDERS: ADMIT Internal Medicine; ATTEND Internal Medicine